=== PATIENT | male | born 1935 | race Caucasian/White ===

== ENCOUNTER 2019-06-08 16:21 | Inpatient (IN) ==
--- OUTSIDE RECORDS SUMMARY | 2019-06-08 16:26 | External Medical Summary | Continuity of Care Document ---
:1935 Author Name Stormy Church, Provider Address Unavailable Unavailable , Care Team Providers Name Role Phone NonMNPG Ranjit, Provider Unavailable [email or web address] Active medical history not documented Allergies and Adverse Reactions Allergy history not documented Medications Medications not documented Procedures Procedures not documented Immunizations Immunizations not documented Plan of Treatment Planned Observations Planned Goals not documented Results No Known Results Results not documented
--- NOTE | 2019-06-08 17:00 | Emergency Department Note ---
Entered by Sharee Gil acting as a scribe for Michi Luna MD History of Present Illness General Chief complaint: Abdominal Pain Stated complaint: AB PAIN, RESP. DIFF Time Seen by Provider: 06/08/19 16:33 Source: patient History of Present Illness Onset (ago): day(s) 3 Location: abdomen Pain Consistency: + constant Maximum Pain Intensity: 8 Associated symptoms: + denies other symptoms (melena, hematochezia, dysuria. diarrhea ), + shortness of breath (began 3 days ago ) and + other (pain and edema in bilateral lower extremities, frequent urination, chronic back pain unchanged from baseline, chest pressure for years but no change from baseline ); no cough, no fever/chills, no headaches and no nausea/vomiting The patient is an 83 year old male with a PMHx pertinent for CABG x4, CAD, cardiac stent, chronic chest pressure, HTN, DM, GERD, dyslipidemia, chronic back pain, chronic bilateral leg numbness, back surgery, and other relevant past medical problems as indicated on [facility] who presents to the Emergency Room with complaints of abdominal pain. The patient states that he began experiencing abdominal pain associated with shortness of breath 3 days ago after lifting a bucket of coal. He states that his pain is worse with movement and takes aspirin at home for relief but did not take Tylenol. He also reports more frequent urination that usual and states that he is unsure if his abdomen is distended of not. Additionally he complains of some pain and edema in his legs. Of note, he reports that his chest pressure, chronic back pain, and chronic bilateral leg numbness are unchanged from baseline. Currently the patient admits that his breathing has improved since arrival to the ED today. The patient also reports that he is on Plavix and wears oxygen at night, He denies melena, hematochezia, diarrhea, cough, fever, vomiting, dysuria, headaches, recent falls or injuries, and any known allergies. The patient offers no additional complaints at this time. Home Medications Home Medications Medication Instructions Recorded Confirmed Type acetaminophen [Acetaminophen Extra 1,000 mg PO BID 06/08/19 06/08/19 History Strength] amlodipine 5 mg PO QAM 06/08/19 06/08/19 History aspirin 81 mg PO QAM 06/08/19 06/08/19 History carvedilol 12.5 mg PO BID 06/08/19 06/08/19 History clopidogrel 75 mg PO QAM 06/08/19 06/08/19 History cyanocobalamin (vitamin B-12) 1,000 mcg PO QAM 06/08/19 06/08/19 History [Vitamin B-12] duloxetine 60 mg PO QAM 06/08/19 06/08/19 History xajftjkyvre-ryumuxnta-bmkngieb 1 inh INHALATION DAILY 06/08/19 06/08/19 History [Trelegy Ellipta] furosemide 20 mg PO 3XWK 06/08/19 06/08/19 History gabapentin 300 mg PO BID 06/08/19 06/08/19 History levothyroxine 25 mcg PO QAM 06/08/19 06/08/19 History losartan 25 mg PO QPM 06/08/19 06/08/19 History metformin 500 mg PO BID 06/08/19 06/08/19 History multivitamin 1 tab PO QAM 06/08/19 06/08/19 History nitroglycerin [Nitrostat] 0.4 mg SUBLINGUAL UD 06/08/19 06/08/19 History pantoprazole 40 mg PO QAM 06/08/19 06/08/19 History potassium chloride 10 meq PO 3XWK 06/08/19 06/08/19 History rosuvastatin 10 mg PO QPM 06/08/19 06/08/19 History Allergies Allergy/AdvReac Type Severity Reaction Status Date / Time acetaminophen AdvReac Mild anxiety,ins Verified 06/08/19 17:43 omnia codeine AdvReac Mild GI SYMPTOMS Verified 06/08/19 17:43 hydrocodone AdvReac Mild anxiety,ins Verified 06/08/19 17:43 omnia Past Med/Surg History Medical History Acute cholecystitis (Acute) CAD (coronary artery disease) (Chronic) "CABG x 4 2001 cath 2011 - SVG to 1st diagonal 100% occluded, other grafts patent stress test 2014 - normal per patient" GERD (gastroesophageal reflux disease) (Chronic) BPH (benign prostatic hyperplasia) (Chronic) Dyslipidemia (Chronic) ERINN (obstructive sleep apnea) (Chronic) HTN (hypertension) (Chronic) Aortic stenosis, moderate (Chronic) Hypothyroidism (Chronic) Diabetes mellitus (Chronic) H/O echocardiogram (Chronic) "04/2015 - EF 55%, moderate " Amputated finger (Chronic) Surgical History H/O repair of right rotator cuff (Chronic) S/P TURP (Chronic) S/P laminectomy with spinal fusion (Chronic) "2011" History of CEA (carotid endarterectomy) (Chronic) "left - 2011, right - 2012" Hx of cataract surgery (Chronic) Family History Brother Diabetes Coronary heart disease, Onset Age: 60 Brother Coronary heart disease, Onset Age: 50 Social History Preferred Language: Bruneian Communication Ability: Effective Beliefs That Will Affect Care: None marital status: Current Living Situation: Spouse current occupational status: retired Other Information That Helps Us Care for You: No Feels Safe at Home: Yes Safety Concerns: Feels Safe At This Time Smoking Status: Never smoker Tobacco Type: cigarettes and smokeless tobacco ; packs per day: 4 ; Years Smoked: 25 ; Do You Dip or Chew Tobacco: No ; Second Hand Exposure: No ; Tobacco Cessation Education Requested by Patient: No Hx Alcohol Use: No Hx Substance Use: No Review of Systems See HPI for pertinent positives & negatives. and A total of 10 systems reviewed and were otherwise negative Physical Exam Vital Signs Vital Signs - 24 hr 06/08/19 16:24 06/08/19 16:27 06/08/19 16:28 Temperature 36.9 C Temperature Source Oral Sepsis Recent Fever Within 48 Hours No Sepsis New/Unexplained Change in Mental Status No Sepsis Action Taken by Nursing No Action Required Pulse Rate 79 75 78 Pulse Rate from SpO2 Sensor 79 76 Pulse Rhythm Regular Pulse Strength Normal Respiratory Rate 20 17 20 Respiratory Effort / Characteristics Non-Labored Spontaneous Respiratory Depth Normal Blood Pressure 177/74 H 167/83 H Blood Pressure Mean 108 111 Blood Pressure Position Lying Pulse Oximetry 91 90 88 L Oxygen Delivery Method Room Air Oxygen Flow Rate 3 3 06/08/19 16:30 06/08/19 17:00 06/08/19 17:03 Temperature Temperature Source Sepsis Recent Fever Within 48 Hours Sepsis New/Unexplained Change in Mental Status Sepsis Action Taken by Nursing Pulse Rate 77 78 88 Pulse Rate from SpO2 Sensor 78 78 Pulse Rhythm Pulse Strength Respiratory Rate 26 H 27 H 20 Respiratory Effort / Characteristics Respiratory Depth Blood Pressure 167/83 H Blood Pressure Mean 111 Blood Pressure Position Pulse Oximetry 97 96 95 Oxygen Delivery Method Nasal Cannula Oxygen Flow Rate 3 3 3 06/08/19 17:12 06/08/19 17:32 06/08/19 18:00 Temperature Temperature Source Sepsis Recent Fever Within 48 Hours Sepsis New/Unexplained Change in Mental Status Sepsis Action Taken by Nursing Pulse Rate 81 83 80 Pulse Rate from SpO2 Sensor 80 81 Pulse Rhythm Pulse Strength Respiratory Rate 29 H 28 H 26 H Respiratory Effort / Characteristics Respiratory Depth Blood Pressure 169/85 H Blood Pressure Mean 113 Blood Pressure Position Pulse Oximetry 96 92 Oxygen Delivery Method Nasal Cannula Nasal Cannula Oxygen Flow Rate 3 3 06/08/19 18:30 06/08/19 18:48 06/08/19 19:30 Temperature Temperature Source Sepsis Recent Fever Within 48 Hours Sepsis New/Unexplained Change in Mental Status Sepsis Action Taken by Nursing Pulse Rate 84 85 86 Pulse Rate from SpO2 Sensor 85 85 85 Pulse Rhythm Pulse Strength Respiratory Rate 21 22 28 H Respiratory Effort / Characteristics Respiratory Depth Blood Pressure 162/79 H 164/73 H Blood Pressure Mean 106 103 Blood Pressure Position Pulse Oximetry 94 96 94 Oxygen Delivery Method Nasal Cannula Nasal Cannula Oxygen Flow Rate 3 3 General: Non-ill appearing older male on 2L nasal canula and appears to be in no acute distress. HEENT: Normal cephalic atraumatic. Pupils are equal round and reactive to light. Extraocular movements are intact. Oropharynx is pink with moist mucous membranes. No swelling of the mouth lips or tongue. Neck: Supple with a midline trachea. No meningeal signs or stiffness, no JVD or bruits. No Stridor. Chest: Clear to auscultation bilaterally. No wheezes or rhonchi. No increased work of breathing. Heart: regular rate and rhythm. Abdomen: Soft nontender, mildly distended without rebound guarding or rigidity. Extremities: No cyanosis clubbing or edema. No calf tenderness or asymmetry Spine/Back. Non tender to palpation. No CVA tenderness Skin: Good turgor without rashes. Neurologic exam: Cranial nerves two through 12 are intact. Motor and sensation are intact and symmetrical throughout. Course 1635: Past medical records reviewed. The patient was evaluated in room A03. A complete history and physical exam was performed. 174: I checked on the patient and she is resting comfortably waiting to go to CT. 183: Spoke with Dr. Ty, [facility] Surgeon who states that he will see the patient but recommends to admit the patient to medicine. 1852: Spoke to [facility] who states that he will be admitted to [facility]. 1855: Dr. Ty evaluated the patient and will admit to medicine with IV abx. The patient verbally expressed understanding and agreement of the treatment plan. The patient will be evaluated for further treatment. Administered Medications Carvedilol (Coreg) 12.5 mg PO BID UNA Stop: 07/08/19 20:59 Last Admin: 06/08/19 21:12 Dose: 12.5 mg Documented by: [id number] Gabapentin (Neurontin) 300 mg PO BID UNA Stop: 07/08/19 20:59 Last Admin: 06/08/19 21:12 Dose: 300 mg Documented by: [id number] Sodium Chloride (Nss 1000ml) 1,000 mls @ 60 mls/hr IV .[id number] UNA Stop: 07/08/19 21:59 Last Admin: 06/08/19 22:08 Dose: 60 mls/hr Documented by: [id number] Losartan Potassium (Cozaar) 25 mg PO QPM UNA Stop: 07/08/19 20:59 Last Admin: 06/08/19 21:13 Dose: 25 mg Documented by: [id number] Rosuvastatin Calcium (Crestor) 10 mg PO QPM UNA Stop: 07/08/19 20:59 Last Admin: 06/08/19 21:12 Dose: 10 mg Documented by: [id number] Discontinued Medications Piperacillin Sod/Tazobactam Sod (Zosyn) 4.5 gm in 120 mls @ 240 mls/hr IV NOW ONE Stop: 06/08/19 19:23 Last Infusion: 06/08/19 20:06 Dose: 0 mls/hr Documented by: [id number] Admin: 06/08/19 19:18 Dose: 240 mls/hr Documented by: [id number] Acetaminophen (Ofirmev) 1,000 mg in 100 mls @ 400 mls/hr IV 2100 ONE Stop: 06/08/19 21:14 Last Infusion: 06/08/19 21:29 Dose: 0 mls/hr Documented by: [id number] Admin: 06/08/19 21:14 Dose: 400 mls/hr Documented by: [id number] Dextrose/Sodium Chloride (D5w And Nss) 1,000 mls @ 60 mls/hr IV .[id number] UNA Stop: 07/08/19 20:23 Last Infusion: 06/08/19 21:56 Dose: 0 mls/hr Documented by: [id number] Infusion: 06/08/19 21:55 Dose: 0 mls/hr Documented by: [id number] Admin: 06/08/19 20:48 Dose: 60 mls/hr Documented by: [id number] Insulin Glargine (Lantus Solostar Pen) 0 - 8 units SC BID UNA; Protocol Stop: 07/08/19 20:59 Last Admin: 06/08/19 21:39 Dose: 8 units Documented by: [id number] Cosigned by: [id number] Medical Decision Making Differential Diagnosis Differential diagnosis includes but is not limited to musculoskeletal hematoma, infection, bowel obstruction, electrolyte or metabolic abnormality, cardiac disease, pulmonary disease. Medical Records Attestation: I reviewed the patient's medical records. Home Medications Current Medication List: was personally reviewed by me Laboratory Data Attestation: I reviewed the patient's lab results. Result diagrams: 06/08/19 17:13 06/08/19 17:13 Lab Results 06/08/19 06/08/19 06/08/19 Range/Units 17:13 17:13 17:14 WBC 14.08 H (4.8-10.8) K/uL RBC 4.91 (4.7-6.1) M/uL Hgb 15.4 (14.0-18.0) g/dL Hct 44.1 (42-52) % MCV 89.8 (80-100) fL MCH 31.4 (25-34) pg MCHC 34.9 (32-36) g/dL RDW Std Deviation 46.6 H (36.4-46.3) fL RDW Coeff of Maryan 14.2 (11.5-14.5) % Plt Count 191 (130-400) K/uL MPV 9.3 (7.4-10.4) fL Immature Gran % (Auto) 0.4 % Neut % (Auto) 82.3 % Lymph % (Auto) 6.2 % Johnston % (Auto) 11.0 % Eos % (Auto) 0.0 % Baso % (Auto) 0.1 % Immature Gran # (Auto) 0.05 H (0.00-0.02) K/uL Neut # (Auto) 11.60 H (1.4-6.5) K/uL Lymph # (Auto) 0.87 L (1.2-3.4) K/uL Johnston # (Auto) 1.55 H (0.11-0.59) K/uL Eos # (Auto) 0.00 (0-0.5) K/uL Baso # (Auto) 0.01 (0-0.2) K/uL Sodium 131 L (136-145) mmol/L Potassium 4.3 (3.5-5.1) mmol/L Chloride 94 L (98-107) mmol/L Carbon Dioxide 29 (21-32) mmol/L Anion Gap 8.0 (3-11) BUN 10 (7-18) mg/dl Creatinine 0.78 (0.6-1.4) mg/dl Est Cr Clr Drug Dosing 74.0 ml/min Est GFR ( Amer) 97.4 Est GFR (Non-Af Amer) 84.1 BUN/Creatinine Ratio 12.7 (10-20) Glucose 160 H (70-99) mg/dl Calcium 9.4 (8.5-10.1) mg/dl Total Bilirubin 1.1 H (0.2-1) mg/dl AST 10 L (15-37) U/L ALT 18 (12-78) U/L Alkaline Phosphatase 52 (45-117) U/L Troponin I < 0.015 (0-0.045) ng/ml Total Protein 8.0 (6.4-8.2) gm/dl Albumin 4.0 (3.4-5.0) gm/dl Globulin 4.0 (2.5-4.0) gm/dl Albumin/Globulin Ratio 1.0 (0.9-2) Lipase 46 L (73-393) U/L Urine Color Dark Yellow Urine Appearance Clear (Clear) Urine pH 7.5 (4.5-7.5) Ur Specific Brandon 1.025 (1.000-1.030) Urine Protein 3+ H (Negative) Urine Glucose (UA) 1+ H (Negative) Urine Ketones 2+ H (Negative) Urine Blood Negative (Negative) Urine Nitrite Negative (Negative) Urine Bilirubin Negative (Negative) Urine Urobilinogen Negative (Negative) Ur Leukocyte Esterase Negative (Negative) Urine WBC (Auto) 1-5 (0-5) /hpf Urine RBC (Auto) 0-4 (0-4) /hpf U Hyaline Cast (Auto) 1-5 (0-5) /lpf U Epithel Cells (Auto) 10-20 H (0-5) /lpf Urine Bacteria (Auto) Negative (Negative) Imaging Data Radiologist's Impression: Radiology results as stated below per my review and the radiologist's interpretation: CT abd pelvis wo con CLINICAL HISTORY: 83 years-old Male presenting with lower abdominal pain, generalized abdominal pain. TECHNIQUE: Multidetector CT of the abdomen and pelvis was performed without the use of intravenous contrast. IV contrast: None. One or more dose lowering techniques were used consistent with the principles of ALARA (as low as reasonably achievable), including automatic exposure control, mA or kV adjustment to individual patient size, and/or use of iterative reconstruction. COMPARISON: None. CT DOSE (mGy.cm): The estimated cumulative dose is 1122.10 mGycm. 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 Lung bases: Mild multichamber enlargement of the heart. Coronary artery bypass grafting may be present. Coronary artery, aortic valve, and mitral annular calcification. No pericardial or pleural effusion. Multiple calcified bilateral hilar and mediastinal lymph nodes indicate a history of old granulomatous disease. Bibasilar atelectasis greater on the right. This may in part be due to elevation of the right hemidiaphragm. Liver: Normal morphology. Density consistent with hepatic steatosis. Biliary: No gross biliary ductal dilatation allowing for noncontrast technique. The gallbladder is mildly distended with significant wall thickening and pericholecystic inflammatory change. A gallstone is noted at the gallbladder neck. Pancreas: Mild parenchymal atrophy. Spleen: Normal noncontrast appearance. Adrenal glands: Normal noncontrast appearance. Kidneys and ureters: Exophytic cyst may be present in the left kidney. No nephrolithiasis. No hydronephrosis. Normal ureters. Bladder: Circumferential bladder wall thickening. Pelvic organs: Normal noncontrast appearance. Bowel: Diverticulosis of the proximal sigmoid and descending colon without wall thickening or pericolonic inflammatory change. Mild wall thickening of the hepatic flexure of the colon adjacent to the inflamed gallbladder. The appendix is normal. No bowel obstruction. Periduodenal fluid along the descending portion with mild wall thickening likely secondarily reactive. A small duodenal di verticulum is noted at the level of the pancreatic head. Peritoneal cavity: Trace retroperitoneal fluid along the descending duodenum emanating from the gallbladder as mentioned. No free intraperitoneal gas or fluid. Lymph nodes: No gross lymphadenopathy allowing for noncontrast technique. Vasculature: Extensive calcified atherosclerotic plaque throughout the normal caliber abdominal aorta and the major branch vessels. There is resulting severe stenosis of the bilateral proximal common iliac arteries. Additional sites of stenoses of origins of vessels also suspected. Abdominal wall: Fat-containing small inguinal hernias, right greater than left. Bilateral mild gynecomastia. Musculoskeletal: Posterior lumbar fusion hardware and laminectomy defects in the lower lumbar spine. Degenerative changes of the spine. Median sternotomy appears well healed. IMPRESSION: 1. Evidence of acute calculus cholecystitis. Surgical consultation is necessary. 2. Secondarily reactive change of the hepatic flexure of the colon and descending duodenum. 3. Diverticulosis coli. No evidence of diverticulitis. 4. Chronic bladder outlet obstruction secondary to benign prostatic hyperplasia suspected. 5. Mild cardiomegaly. 6. Extensive atherosclerosis with suspected severe stenosis in the proximal common iliac arteries bilaterally. The report will be called/faxed according to standard departmental protocol. Electronically signed by: Irvin To M.D. 06/08/2019 6:10 PM XR chest 1V portable CLINICAL HISTORY: Shortness of breath COMPARISON STUDY: October 2011 FINDINGS: There are postsurgical changes of a midline sternotomy. There is mild elevation right hemidiaphragm. This is a new finding. There is no failure. There is no lobar consolidation. There are no pleural effusions.[ IMPRESSION: 1. Interval development of elevation of the right hemidiaphragm 2. No evidence of focal pulmonary consolidation. No evidence of failure Electronically signed by: Benja Cesar M.D. 06/08/2019 5:06 PM ECG Data Attestation: I personally reviewed and interpreted this ECG as follows: Indication: + abdominal pain Rate (beats per minute): 78 Rhythm: + normal sinus ECG Findings: + Other (anterior and lateral T wave abnormalities ) Comparison ECG Date: from (EKG 1 done in doctor's office today [facility] EMT in the ED) Change: the following changes noted (NSR rate of 76, occasional PVC's, poor baseline, lateral T wave abnormalities, no acute ST wave elevations) Blood Pressure Blood Pressure Findings: Elevated blood pressure Blood Pressure Disposition: Referred to patients primary care provider SUE Narrative This patient comes in as described above. He was placed in room A3. He has had lower abdominal pain for couple days after lifting something heavy. There was no direct trauma. He was short of breath as well he does wear home oxygen 3 L at night apparently in the office he was hypoxemic. At present, he is on 2-1/2 to liters nasal cannula and he is 95% or so. He appears in no distress. His abdomen is mildly tender in the epigastric area.. He is to have a very complex medical history and thus an extensive work-up was done which included CAT scan of the abdomen EKG chest x-ray and multiple blood testing. He was reassessed frequently. CAT scan does reveal findings consistent with acute cholecystitis. He has a gallbladder that is inflamed with a stone in the neck. His white count is elevated 14. His LFTs are not elevated. EKG does not suggest any definite acute ischemic changes. he does have some nonspecific T wave abnormalit ies. Troponin is not elevated. Chest x-ray was unremarkable. I did consult Dr. Aguilar who saw the patient ER. Given his multiple medical problems he does recommend to start him on IV antibiotics and having this and admit him. I did consult medicine and they saw him in the ER for these measures. 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 DIFF ED Provider: Michi Luna Discharge Problem: Acute cholecystitis, Central abdominal pain, Shortness of breath, Diabetes mellitus, shelter current use of clopidogrel Patient Disposition: Admitted As Inpatient Discharge Instructions Interventions: ED Discharge Assessment Last Done: 06/08/19 20:12 The scribe's documentation has been prepared under my direction and personally reviewed by me in its entirety. I confirm that the note above accurately reflects all work, treatment, procedures, and medical decision making performed by me.
--- NOTE | 2019-06-08 17:07 | XRay Report ---
XR chest 1V portable CLINICAL HISTORY: Shortness of breath COMPARISON STUDY: October 2011 FINDINGS: There are postsurgical changes of a midline sternotomy. There is mild elevation right hemid iaphragm. This is a new finding. There is no failure. There is no lobar consolidation. There are no p leural effusions.[ IMPRESSION: 1. Interval development of elevation of the right hemidiaphragm 2. No evidence of focal pulmonary consolidation. No evidence of failure Electronically signed by: Benja Cesar M.D. 06/08/2019 5:06 PM
[2019-06-08 17:21] LABS: Basophils # (auto) 0.01 K/uL (0-0.2); Basophils % (auto) 0.1 %; Hematocrit (blood only) 44.1 % (42-52); Hemoglobin 15.4 g/dL (14.0-18.0); Immature Granulocytes # (auto) 0.05 K/uL (0.00-0.02); Immature Granulocytes % (auto) 0.4 %; Lymphocytes # (auto) 0.87 K/uL (1.2-3.4); Lymphocytes % (auto) 6.2 %; Mean Corpuscular Hemoglobin 31.4 pg (25-34); Mean Corpuscular Hgb Conc 34.9 g/dL (32-36); Mean Corpuscular Volume 89.8 fL (80-100); Mean Platelet Volume 9.3 fL (7.4-10.4); Monocytes # (auto) 1.55 K/uL (0.11-0.59); Neutrophils % (auto) 82.3 %; Platelet Count 191 K/uL (130-400); RDW Coefficient of Variation 14.2 % (11.5-14.5); RDW Standard Deviation 46.6 fL (36.4-46.3); Red Blood Count 4.91 M/uL (4.7-6.1); White Blood Count 14.08 K/uL (4.8-10.8)
[2019-06-08 17:40] LABS: Alanine Aminotransferase 18 U/L (12-78); Aspartate Aminotransferase 10 U/L (15-37); BUN Creatinine Ratio 12.7 (10-20); Blood Urea Nitrogen 10 mg/dl (7-18); Calcium 9.4 mg/dl (8.5-10.1); Carbon Dioxide 29 mmol/L (21-32); Chloride 94 mmol/L (98-107); Est GFR (African American) 97.4; Est GFR (Non-African American) 84.1; Glucose 160 mg/dl (70-99); Lipase 46 U/L (73-393); Potassium 4.3 mmol/L (3.5-5.1); Sodium 131 mmol/L (136-145)
[2019-06-08 17:47] LABS: Alkaline Phosphatase 52 U/L (45-117); Bilirubin,Total 1.1 mg/dl (0.2-1); Troponin I < 0.015 ng/ml (0-0.045)
[2019-06-08 17:57] LABS: Appearance Urine Clear (Clear); Bacteria Urine Automated Negative (Negative); Bilirubin Urine Negative (Negative); Blood Urine Negative (Negative); Color Urine Dark Yellow; Glucose Urine UA 1+ (Negative); Ketones Urine 2+ (Negative); Leukocyte Esterase Urine Negative (Negative); Nitrite Urine Negative (Negative); RBC Urine Automated 0-4 /hpf (0-4); Specific Gravity Urine 1.025 (1.000-1.030); Urobilinogen Urine Negative (Negative); pH Urine 7.5 (4.5-7.5)
--- NOTE | 2019-06-08 18:11 | CT Scan Report ---
CT abd pelvis wo con CLINICAL HISTORY: 83 years-old Male presenting with lower abdominal pain, generalized abdominal pain. TECHNIQUE: Multidetector CT of the abdomen and pelvis was performed without the use of intravenous co ntrast. IV contrast: None. One or more dose lowering techniques were used consistent with the princip les of ALARA (as low as reasonably achievable), including automatic exposure control, mA or kV adjust ment to individual patient size, and/or use of iterative reconstruction. COMPARISON: None. CT DOSE (mGy.cm): The estimated cumulative dose is 1122.10 mGycm. FINDINGS: Ceramic Chemist topogram: Orthopedic hardware. Lung bases: Mild multichamber enlargement of the heart. Coronary artery bypass grafting may be presen t. Coronary artery, aortic valve, and mitral annular calcification. No pericardial or pleural effusio n. Multiple calcified bilateral hilar and mediastinal lymph nodes indicate a history of old granuloma tous disease. Bibasilar atelectasis greater on the right. This may in part be due to elevation of the right hemidiaphragm. Liver: Normal morphology. Density consistent with hepatic steatosis. Biliary: No gross biliary ductal dilatation allowing for noncontrast technique. The gallbladder is mi ldly distended with significant wall thickening and pericholecystic inflammatory change. A gallstone is noted at the gallbladder neck. Pancreas: Mild parenchymal atrophy. Spleen: Normal noncontrast appearance. Adrenal glands: Normal noncontrast appearance. Kidneys and ureters: Exophytic cyst may be present in the left kidney. No nephrolithiasis. No hydrone phrosis. Normal ureters. Bladder: Circumferential bladder wall thickening. Pelvic organs: Normal noncontrast appearance. Bowel: Diverticulosis of the proximal sigmoid and descending colon without wall thickening or pericol onic inflammatory change. Mild wall thickening of the hepatic flexure of the colon adjacent to the in flamed gallbladder. The appendix is normal. No bowel obstruction. Periduodenal fluid along the descen ding portion with mild wall thickening likely secondarily reactive. A small duodenal diverticulum is noted at the level of the pancreatic head. Peritoneal cavity: Trace retroperitoneal fluid along the descending duodenum emanating from the gallb ladder as mentioned. No free intraperitoneal gas or fluid. Lymph nodes: No gross lymphadenopathy allowing for noncontrast technique. Vasculature: Extensive calcified atherosclerotic plaque throughout the normal caliber abdominal aorta and the major branch vessels. There is resulting severe stenosis of the bilateral proximal common il iac arteries. Additional sites of stenoses of origins of vessels also suspected. Abdominal wall: Fat-containing small inguinal hernias, right greater than left. Bilateral mild gyneco mastia. Musculoskeletal: Posterior lumbar fusion hardware and laminectomy defects in the lower lumbar spine. Degenerative changes of the spine. Median sternotomy appears well healed. IMPRESSION: 1. Evidence of acute calculus cholecystitis. Surgical consultation is necessary. 2. Secondarily reactive change of the hepatic flexure of the colon and descending duodenum. 3. Diverticulosis coli. No evidence of diverticulitis. 4. Chronic bladder outlet obstruction secondary to benign prostatic hyperplasia suspected. 5. Mild cardiomegaly. 6. Extensive atherosclerosis with suspected severe stenosis in the proximal common iliac arteries bi laterally. The report will be called/faxed according to standard departmental protocol. Electronically signed by: Irvin To M.D. 06/08/2019 6:10 PM
[2019-06-08 18:12] LABS: Protein Urine 3+ (Negative); Sulfosalicylic Acid Urine Positive (Negative)
[2019-06-08] MEDS ORDERED: PIPERACILL/TAZOBAC CONSULT ACTIVE PRN ×2 (18:54→20:24)
[2019-06-08] MEDS ORDERED: PIPERACILLIN/TAZOBACTAM 4.5 GM/120 ML BAG IV ONE (18:54)
--- NOTE | 2019-06-08 19:25 | Surgery Consultation ---
Date of Consultation June 08, 2019 Assessment & Plan (1) Acute cholecystitis: Patient has acute cholecystitis no evidence of common bile duct obstruction or elevated liver function test He is on aspirin and Plavix Recommend the patient be admitted to medical service IV antibiotics and watch his clinical course ideally would like to wait 3 or 4 days minimum from Plavix before we will proceed with surgery but even so like to get the medical clearance and possible cardiology to see the patient prior to surgery and see if he is a candidate or he may be best served for a cholecystostomy tube This was discussed in detail with the and the patient and they are agreeable with our plans and they are aware that we may change course of therapy depending on his clinical picture Present on Admission?: Yes History of Present Illness Reason for Consultation: Acute cholecystitis Requesting Physician: ER physician History of Present Illness 83-year-old gentleman according to his started complaining of abdominal pain about 3 days ago and progressively got worse the point he just laying around at this time was brought into the emergency room for evaluation On questioning the patient in about 6:00 in the evening partial 3 days ago he was trying to lift some call in his basement and developed abdominal pain the progressively became worse he denies any nausea the pain was mostly in the epigastric area on the right side Brought into the emergency room CT scan obtained which showed acute cholecystitis fluid around the gallbladder possibly extending around the hepatic flexure and duodenum Allergies Allergy/AdvReac Type Severity Reaction Status Date / Time acetaminophen AdvReac Mild anxiety,ins Verified 06/08/19 17:43 omnia codeine AdvReac Mild GI SYMPTOMS Verified 06/08/19 17:43 hydrocodone AdvReac Mild anxiety,ins Verified 06/08/19 17:43 omnia Home Medications Home Medications Medication Instructions Recorded Confirmed Type acetaminophen [Acetaminophen Extra 1,000 mg PO BID 06/08/19 06/08/19 History Strength] amlodipine 5 mg PO QAM 06/08/19 06/08/19 History aspirin 81 mg PO QAM 06/08/19 06/08/19 History carvedilol 12.5 mg PO BID 06/08/19 06/08/19 History clopidogrel 75 mg PO QAM 06/08/19 06/08/19 History cyanocobalamin (vitamin B-12) 1,000 mcg PO QAM 06/08/19 06/08/19 History [Vitamin B-12] duloxetine 60 mg PO QAM 06/08/19 06/08/19 History kwjzrzazhgm-ajuupthtc-rpijvsat 1 inh INHALATION DAILY 06/08/19 06/08/19 History [Trelegy Ellipta] furosemide 20 mg PO 3XWK 06/08/19 06/08/19 History gabapentin 300 mg PO BID 06/08/19 06/08/19 History levothyroxine 25 mcg PO QAM 06/08/19 06/08/19 History losartan 25 mg PO QPM 06/08/19 06/08/19 History metformin 500 mg PO BID 06/08/19 06/08/19 History multivitamin 1 tab PO QAM 06/08/19 06/08/19 History nitroglycerin [Nitrostat] 0.4 mg SUBLINGUAL UD 06/08/19 06/08/19 History pantoprazole 40 mg PO QAM 06/08/19 06/08/19 History potassium chloride 10 meq PO 3XWK 06/08/19 06/08/19 History rosuvastatin 20 mg PO QPM 06/08/19 06/08/19 History Patient History Social History Feels Safe at Home: Yes Smoking Status: Former smoker Review of Systems Constitutional: Patient has had considerable peripheral vascular and cardiac issues He apparently is in need of a aortic valve replacement but according to the they are working to unplug his carotids prior to surgery I personally had performed a left carotid endarterectomy on him in 2011 and si nce that time I have not seen him and has been followed by vascular at [facility] He did have a critical right carotid stenosis at that time and I am not sure if it was ever addressed by the vascular team and [facility] or which carotid is blocked at this time The patient also has had problem with some reflux type of symptoms and bloating when he gets some fatty foods and this is been going on for some time The patient also has sleep apnea and is on BiPAP at night Physical Exam Physical Exam: Patient is laying on his right side oxygen nasal cannula with O2 sats of 91 states that he was in high 80s in the doctor's office prior to coming to the hospital Patient is alert is coherent in no obvious distress Eyes: PERRL, conjunctivae normal, anicteric sclerae ENMT: external ear and nose normal, oropharynx normal Neck: No audible carotid bruits incision left carotid steal well Respiratory: Distant breath sounds bilaterally Cardiovascular: Normal sinus rhythm Gastrointestinal (Abdomen): Obese no tenderness or masses appreciated on exam or on deep palpation Results & Data Vital Signs (Past 12 Hours) Vital Signs Temp Pulse Resp BP Pulse Ox 06/08/19 18:48 85 22 162/79 H 96 06/08/19 18:30 84 21 94 06/08/19 18:00 80 26 H 06/08/19 17:32 83 28 H 92 06/08/19 17:12 81 29 H 169/85 H 96 06/08/19 17:03 88 20 95 06/08/19 17:00 78 27 H 96 06/08/19 16:30 77 26 H 167/83 H 97 06/08/19 16:28 36.9 C 78 20 167/83 H 88 L 06/08/19 16:27 75 17 90 06/08/19 16:24 79 20 177/74 H 91 PG Care Time/CCT Total # of Minutes Spent Total Time Spent with Patient: Total time spent is greater than 50% in coordination of care (as documented) at patient's floor/unit and/or counseling patient:
--- NOTE | 2019-06-08 19:51 | History & Physical Report ---
Date of Service June 08, 2019 Assessment & Plan (1) Acute cholecystitis: Mr. Campo is a 83-year-old male who has significant past medical history of CAD s/p CABG x 4 2000 and PTCA x 1 2006, severe aortic stenosis, bilateral carotid artery stenosis status post L CEA 02/09 and R CEA 08/18 with re-stenosis of L carotid 70-99%, COPD, ERINN on CPAP, HTN, HLD, T2DM, hypothyroidism GERD, BPH who presents to [facility] ED secondary to shortness of breath and abdominal pain x3 days. In ED pt was hypertensive and hypoxic requiring 3L of O2 via NC, he was afebrile WBC 14k, Na 131, K 4.3, bun 10, Cr 0.78, glucose 160, Tbili 1.1, AST 10, ALT 18, ALP 52, trop WNL CXR: elevated R hemidiaphragm but no acute cardiopulmonary abnormality CT scan abd/pelvis: concerning for acute cholecystitis Surgical consultation was performed by Dr. Ty, IV antibiotics initiated admit to tele continue IV Zosyn NPO per Dr. Ty IVF D5NS 60cc/hr - cautious in setting of , pt with T2DM pt with multiple comorbidities including CAD, Severe , L carotid artery stenosis on ASA/Plavix, COPD, ERINN, difficulty with anesthesia per family consult cardiology for assistance with perioperative risk assessment given above echocardiogram in a.m. hold ASA, plavix repeat troponin/ecg (2) Hypoxia: Pt uses O2 at HS with CPAP otherwise does not require O2 hypoxic on arrival requiring 3L O2 via NC CXR no acute cardiopulm abnormality hx of COPD, , CAD, ERINN ? if secondary to pain from cholecystitis, hypoventilation, atelectasis continue Trelegy titrate O2 as needed DuoNeb QID incentive spirometry (3) CAD (coronary artery disease): hx of CABG x 4 2000, with additional angioplasty in 2006 stent to L circumflex on ASA, Statin, Losartan, coreg as outpt recently restarted on plavix due to carotid artery stenosis ECG with anterolateral t wave inversions - last comparsion 2008 no active chest pain and troponin not detectable Echocardiogram in a.m. consult cardiology for perioperative risk assessment (4) Aortic stenosis, moderate: last echocardiogram per family 1.5 month ago at [facility] last echo in [facility] 09/2017 EF 55% with inf hypokinesis, mod-severe repeat echocardiogram for pre op risk assessment monitor volume status closely daily weights strict I and O (5) Diabetes mellitus: A1 6.9 11/2018 obtain a1c in a.m. lantus/novolog per protocol hold metformin (6) HTN (hypertension): blood pressure elevated in ED, likely in setting of pain IV APAP 1g x 1 now will receive coreg 12.5mg and losartan 25mg this evening continue home regimen of amlodipine, losartan, coreg hold lasix for now (7) Carotid artery stenosis: History of left CEA 02/09, history of right CEA 08/13 Repeat carotid ultrasound 2018 revealed left carotid artery 70 to 99% On ASA, statin and recently initiated on Plavix for medical optimization Follows with vascular Dr. Kirby (8) Dyslipidemia: continue crestor (9) Hypothyroidism: continue levothyroxine (10) ERINN (obstructive sleep apnea): CPAP at HS (11) GERD (gastroesophageal reflux disease): continue PPI (12) DVT prophylaxis: SCD/TEDS due to possible upcoming surgical intervention monitor daily need for chemical prophylaxis Disposition: admit to med/surg tele Follow up: PCP Dr. Anthony upon discharge Pt was seen and examined in collaboration with Dr. Anderson, please see addendum Starting 06/09/19 pt will be under the are of Dr. Yates History of Present Illness Chief Complaint: Shortness of breath and abdominal pain x3 days. Primary Care Provider: Jae Anthony MD Mr. Campo is a 83-year-old male who has significant past medical history of CAD s/p CABG x 4 2000 and PTCA x 1 2006, severe aortic stenosis, bilateral carotid artery stenosis status post L CEA 02/09 and R CEA 08/18 with re-stenosis of L carotid 70-99%, COPD, ERINN on CPAP, HTN, HLD, T2DM, hypothyroidism GERD, BPH who presents to [facility] ED secondary to shortness of breath and abdominal pain x3 days. He was initially seen in outpatient clinic and seen by Dolly Prieto PA-C. In clinic he was found to be hypoxic between 80 to 86% with complaints of abdominal pain. He uses 3 L of O2 at at bedtime with his CPAP, but otherwise does not require oxygen. Due to the above he was referred to ED for further evaluation. He notes over the past 3 days he has been having intermittent abdominal pain, comes and goes, worse with movement, touch and meals, improves with rest, never had in the past, did not try anything to make it better. He had decreased appetite today. Intermittent nausea but no vomiting. Denies any fever, chills, sweats, recent illness, dizziness, lightheadedness, syncope, chest pain, palpitations, shortness breath at rest, cough, hemoptysis, emesis, diarrhea, constipation, dysuria, increased urgency with urination, hematuria, melena, hematochezia. He denies any weight loss or gain, lower extremity edema or orthopnea. He denies any recent travel or surgical procedure. He does have history of COPD and takes his Trelegy as prescribed. He has not needed his albuterol inhaler. In ED pt was hypertensive and hypoxic requiring 3L of O2 via NC, he was afebrile WBC 14k, Na 131, K 4.3, bun 10, Cr 0.78, glucose 160, Tbili 1.1, AST 10, ALT 18, ALP 52, trop WNL CXR: elevated R hemidiaphragm but no acute cardiopulmonary abnormality CT scan abd/pelvis: concerning for acute cholecystitis Surgical consultation was performed by Dr. Ty, IV antibiotics initiated Allergies Allergy/AdvReac Type Severity Reaction Status Date / Time acetaminophen AdvReac Mild anxiety,ins Verified 06/08/19 17:43 omnia codeine AdvReac Mild GI SYMPTOMS Verified 06/08/19 17:43 hydrocodone AdvReac Mild anxiety,ins Verified 06/08/19 17:43 omnia Home Medications Home Medications Medication Instructions Recorded Confirmed Type acetaminophen [Acetaminophen Extra 1,000 mg PO BID 06/08/19 06/08/19 History Strength] amlodipine 5 mg PO QAM 06/08/19 06/08/19 History aspirin 81 mg PO QAM 06/08/19 06/08/19 History carvedilol 12.5 mg PO BID 06/08/19 06/08/19 History clopidogrel 75 mg PO QAM 06/08/19 06/08/19 History cyanocobalamin (vitamin B-12) 1,000 mcg PO QAM 06/08/19 06/08/19 History [Vitamin B-12] duloxetine 60 mg PO QAM 06/08/19 06/08/19 History nwlcxlxqezx-rsyeskwtx-itqmblex 1 inh INHALATION DAILY 06/08/19 06/08/19 History [Trelegy Ellipta] furosemide 20 mg PO 3XWK 06/08/19 06/08/19 History gabapentin 300 mg PO BID 06/08/19 06/08/19 History levothyroxine 25 mcg PO QAM 06/08/19 06/08/19 History losartan 25 mg PO QPM 06/08/19 06/08/19 History metformin 500 mg PO BID 06/08/19 06/08/19 History multivitamin 1 tab PO QAM 06/08/19 06/08/19 History nitroglycerin [Nitrostat] 0.4 mg SUBLINGUAL UD 06/08/19 06/08/19 History pantoprazole 40 mg PO QAM 06/08/19 06/08/19 History potassium chloride 10 meq PO 3XWK 06/08/19 06/08/19 History rosuvastatin 10 mg PO QPM 06/08/19 06/08/19 History Past Med/Surg History Medical History Acute cholecystitis (Acute) CAD (coronary artery disease) (Chronic) "CABG x 4 2000 cath 2011 - SVG to 1st diagonal 100% occluded, other grafts patent stress test 2014 - normal per patient" GERD (gastroesophageal reflux disease) (Chronic) BPH (benign prostatic hyperplasia) (Chronic) Dyslipidemia (Chronic) ERINN (obstructive sleep apnea) (Chronic) HTN (hypertension) (Chronic) Aortic stenosis, moderate (Chronic) Hypothyroidism (Chronic) Diabetes mellitus (Chronic) H/O echocardiogram (Chronic) "04/2015 - EF 55%, moderate " Amputated finger (Chronic) Surgical History H/O repair of right rotator cuff (Chronic) S/P TURP (Chronic) S/P laminectomy with spinal fusion (Chronic) "2011" History of CEA (carotid endarterectomy) (Chronic) "left - 2011, right - 2012" Hx of cataract surgery (Chronic) Family History Brother Diabetes Coronary heart disease, Onset Age: 60 Brother Coronary heart disease, Onset Age: 50 Social History Preferred Language: [place]i Communication Ability: Effective Beliefs That Will Affect Care: None marital status: Current Living Situation: Spouse current occupational status: retired Other Information That Helps Us Care for You: No Feels Safe at Home: Yes Safety Concerns: Feels Safe At This Time Smoking Status: Never smoker Tobacco Type: cigarettes and smokeless tobacco ; packs per day: 4 ; Years Smoked: 25 ; Do You Dip or Chew Tobacco: No ; Second Hand Exposure: No ; Tobacco Cessation Education Requested by Patient: No Hx Alcohol Use: No Hx Substance Use: No Review of Systems Review of Systems: All systems reviewed & are unremarkable except as noted in HPI & below Physical Exam Physical Exam: Constitutional: WD/WN, elderly male, vitals as above, NAD, sitting up in bed, pleasant, conversing easily Head: Normocephalic, Atraumatic Eyes: PERRL, conjunctivae normal, anicteric sclerae ENMT: external ear and nose normal, oropharynx dry mucous membranes Neck: trachea midline, no thyromegaly normal visual inspection Respiratory: normal respiratory effort, lungs clear to auscultation, no wheeze, rales, rhonchi. on O2 via NC 3L. Normal insp/exp effort, no accessory muscle use Cardiovascular: RRR, 2/6 harsh RIVER noted throughout precordium, no edema Vessels: no JVD, L carotid bruit Chest: normal inspection of chest Abdomen: normal bowel sounds, soft, tender to palpation RUQ, no hepatosplenomegaly, no rebound/guarding or rigidity Musculoskeletal: no cyanosis or clubbing, extremities motor strength 5/5 Skin: no rashes, warm and dry normal turgor Neurologic: PERRL, EOMI, accommodation nl, no face palsy, no dysarthria CN's II-XI intact bilaterally and moves all extremities Psychiatric: A+Ox3, euthymic affect Lymphatic: no cervical or axillary lymphadenopathy : deferred Results & Data Vital Signs (Past 12 Hours) Vital Signs Temp Pulse Resp BP Pulse Ox 06/08/19 19:30 86 28 H 164/73 H 94 06/08/19 18:48 85 22 162/79 H 96 06/08/19 18:30 84 21 94 06/08/19 18:00 80 26 H 06/08/19 17:32 83 28 H 92 06/08/19 17:12 81 29 H 169/85 H 96 06/08/19 17:03 88 20 95 06/08/19 17:00 78 27 H 96 06/08/19 16:30 77 26 H 167/83 H 97 06/08/19 16:28 36.9 C 78 20 167/83 H 88 L 06/08/19 16:27 75 17 90 06/08/19 16:24 79 20 177/74 H 91 Laboratory Results Short CBC 06/08/19 Range/Units 17:13 WBC 14.08 H (4.8-10.8) K/uL Hgb 15.4 (14.0-18.0) g/dL Hct 44.1 (42-52) % Plt Count 191 (130-400) K/uL BMP 06/08/19 17:13 Sodium 131 L Potassium 4.3 Chloride 94 L Carbon Dioxide 29 BUN 10 Creatinine 0.78 Glucose 160 H Calcium 9.4 Cardiac Enzymes 06/08/19 Range/Units 17:13 Troponin I < 0.015 (0-0.045) ng/ml Liver Function 06/08/19 Range/Units 17:13 Total Bilirubin 1.1 H (0.2-1) mg/dl AST 10 L (15-37) U/L ALT 18 (12-78) U/L Alkaline Phosphatase 52 (45-117) U/L Albumin 4.0 (3.4-5.0) gm/dl Urine 06/08/19 Range/Units 17:14 Urine Color Dark Yellow Urine Appearance Clear (Clear) Urine pH 7.5 (4.5-7.5) Ur Specific Perry 1.025 (1.000-1.030) Urine Protein 3+ H (Negative) Urine Glucose (UA) 1+ H (Negative) Diagnostic Findings CXR: IMPRESSION: 1. Interval development of elevation of the right hemidiaphragm 2. No evidence of focal pulmonary consolidation. No evidence of failure CT abd/pelvis: IMPRESSION: 1. Evidence of acute calculus cholecystitis. Surgical consultation is necessary. 2. Secondarily reactive change of the hepatic flexure of the colon and descending duodenum. 3. Diverticulosis coli. No evidence of diverticulitis. 4. Chronic bladder outlet obstruction secondary to benign prostatic hyperplasia suspected. 5. Mild cardiomegaly. 6. Extensive atherosclerosis with suspected severe stenosis in the proximal common iliac arteries bilaterally. The report will be called/faxed according to standard departmental protocol. Medications Administered Discontinued Medications Piperacillin Sod/Tazobactam Sod (Zosyn) 4.5 gm in 120 mls @ 240 mls/hr IV NOW ONE Stop: 06/08/19 19:23 Last Admin: 06/08/19 19:18 Dose: 240 mls/hr Documented by: [id number] ECG Rate (beats per minute): 78 Findings: + T-wave inversion (anterolateral) Code Status & VTE Plan Code Status DNR VTE Prophylaxis Plan VTE Prophylaxis will be ordered: Yes Reason for no VTE drug order: Contraindicated Supervising Physician Co-Signing Physician Notes Attending Addendum: care coordinated with DANUTA Frazier please refer to her notes for full details, I agree with her notes patient seen and examined, records reviewed by myself as well on exam, patient seen resting in bed, mild RUQ discomfort no nausea, fever/chills no shortness of breath no other symptoms VS noted and reviewed oriented x3, not in distress, speaks in sentences with no effort nor accessory muscle use normal rate, regular rhythm, no murmurs clear breath sounds bilaterally non distended, soft, moderate RUQ tenderness no bipedal edema, erythema, warmth no neuro deficits WBC 14.08 Hg 15.4 Crea 0.78 ASSESSMENT AND PLAN ACUTE CHOLECYSTITIS IV Zosyn NPO for now Gen Surg consulted- hold ASA and Plavix for now, Cardiology pre-op eval recommended HYPOXIA CXR no pneumonia, effusion likely from hypoventilation from pain Incentive Spirometry monitor, wean off Oxygen Nebs other diagnoses and plan of care as per [] Piter Anderson MD
[2019-06-08] MEDS ORDERED: ACETAMINOPHEN 325 MG TAB PO PRN (20:24)
[2019-06-08] MEDS ORDERED: DEXTROSE 50% 50 ML SYRINGE IV PRN (20:24)
[2019-06-08] MEDS ORDERED: CARBOHYDRATES FOR HYPOGLYCEMIA PO PRN (20:24)
[2019-06-08] MEDS ORDERED: MAGNESIUM HYDROXIDE SUSP 30 ML UDC PO PRN (20:24)
[2019-06-08] MEDS ORDERED: GLUCOSE 40% GEL 15 GM TUBE PO PRN (20:24)
[2019-06-08] MEDS ORDERED: D5W AND NSS 1,000 ML IV SCH (20:24)
[2019-06-08] MEDS ORDERED: OXYCODONE HCL IR 5 MG TAB (IMMEDIATE RELEASE) PO PRN (20:24)
[2019-06-08] MEDS ORDERED: GLUCOSE 10 TABS/TUBE PO PRN (20:24)
[2019-06-08] MEDS ORDERED: GLUCAGON FOR INJ 1 MG VIAL SQ PRN (20:24)
[2019-06-08] MEDS ORDERED: ONDANSETRON INJ 2 MG/ML 2 ML VIAL IV PRN (20:24)
[2019-06-08] MEDS ORDERED: ALUMINUM/MAGNESIUM SUSP 30 ML UDC PO PRN (20:24)
[2019-06-08] MEDS ORDERED: ACETAMINOPHEN 325 MG TAB PO SCH (21:00)
[2019-06-08] MEDS ORDERED: ACETAMINOPHEN 1,000 MG/100 ML VIAL IV ONE (21:00)
[2019-06-08] MEDS ORDERED: LOSARTAN POTASSIUM 25 MG TAB PO SCH (21:00)
[2019-06-08] MEDS ORDERED: ROSUVASTATIN CALCIUM 10 MG TAB PO SCH (21:00)
[2019-06-08] MEDS ORDERED: INSULIN GLARGINE SOLOSTAR 100 UNITS/ML 3 ML PEN SC SCH (21:00)
[2019-06-08] MEDS: carvediloL 12.5 MG TAB PO SCH (21:12)
[2019-06-08] MEDS: GABAPENTIN 300 MG CAP PO SCH (21:12)
[2019-06-08] MEDS ORDERED: SODIUM CHLORIDE 0.9% 1000ML 1,000 ML IV SCH (22:00)
[2019-06-08] MEDS: PIPERACILLIN/TAZOBACTAM 3.375 GM in DEXTROSE 5% 100 ML IV SCH (23:41)
[2019-06-09] MEDS: INSULIN ASPART 100 UNITS/ML 3 ML PEN SC SCH ×2 (00:19→06:13)
[2019-06-09 06:02] LABS: Basophils # (auto) 0.01 K/uL (0-0.2); Basophils % (auto) 0.1 %; Hematocrit (blood only) 40.8 % (42-52); Immature Granulocytes # (auto) 0.06 K/uL (0.00-0.02); Immature Granulocytes % (auto) 0.4 %; Lymphocytes # (auto) 1.09 K/uL (1.2-3.4); Mean Corpuscular Hgb Conc 34.3 g/dL (32-36); Mean Corpuscular Volume 90.5 fL (80-100); Mean Platelet Volume 9.3 fL (7.4-10.4); Monocytes # (auto) 1.26 K/uL (0.11-0.59); Monocytes % (auto) 8.1 %; Neutrophils # (auto) 13.09 K/uL (1.4-6.5); Neutrophils % (auto) 84.4 %; Platelet Count 166 K/uL (130-400); RDW Coefficient of Variation 14.3 % (11.5-14.5); RDW Standard Deviation 47.2 fL (36.4-46.3); Red Blood Count 4.51 M/uL (4.7-6.1); White Blood Count 15.51 K/uL (4.8-10.8)
[2019-06-09 06:30] LABS: Albumin Level 3.1 gm/dl (3.4-5.0); BUN Creatinine Ratio 14.2 (10-20); Calcium 9.2 mg/dl (8.5-10.1); Creatinine Clr Calc Pharmacy 61.8 ml/min; Est GFR (African American) 89.5; Est GFR (Non-African American) 77.2; Magnesium 1.9 mg/dl (1.8-2.4); Potassium 4.3 mmol/L (3.5-5.1)
[2019-06-09] MEDS ORDERED: LEVOTHYROXINE SODIUM 25 MCG TABLET PO SCH (06:30)
[2019-06-09 06:32] LABS: Albumin Globulin Ratio 0.7 (0.9-2); Bilirubin,Total 1.1 mg/dl (0.2-1); Globulin 4.2 gm/dl (2.5-4.0); Total Protein 7.3 gm/dl (6.4-8.2)
[2019-06-09 06:40] LABS: Alanine Aminotransferase 16 U/L (12-78); Albumin Level 3.2 gm/dl (3.4-5.0); Alkaline Phosphatase 47 U/L (45-117); Aspartate Aminotransferase 9 U/L (15-37); Bilirubin Direct 0.4 mg/dl (0-0.2); Bilirubin,Total 1.2 mg/dl (0.2-1); Total Protein 7.3 gm/dl (6.4-8.2); Troponin I < 0.015 ng/ml (0-0.045)
[2019-06-09 06:54] LABS: Estimated Average Glucose 151 mg/dl; Hemoglobin A1C 6.9 % (4.5-5.6)
[2019-06-09] MEDS: ALBUT/IPRATROP 3MG/0.5MG NEB 3 ML VIAL NEB SCH ×2 (06:57→10:55)
[2019-06-09] MEDS: PIPERACILLIN/TAZOBACTAM 3.375 GM in DEXTROSE 5% 100 ML IV SCH (08:15)
[2019-06-09] MEDS: carvediloL 12.5 MG TAB PO SCH (08:16)
[2019-06-09] MEDS: GABAPENTIN 300 MG CAP PO SCH (08:17)
[2019-06-09] MEDS ORDERED: AMLODIPINE BESYLATE 5 MG TAB PO SCH (09:00)
[2019-06-09] MEDS ORDERED: metroNIDAZOLE 500 MG/100 ML BAG IV SCH (09:00)
[2019-06-09] MEDS ORDERED: PANTOprazole 40 MG TAB PO SCH (09:00)
[2019-06-09] MEDS ORDERED: DULOXETINE HCL 60 MG CAP PO SCH (09:00)
--- NOTE | 2019-06-09 09:00 | Surgery Progress Note ---
Date of Service June 09, 2019 Assessment & Plan (1) Acute cholecystitis: 06/09/19 9:00 AM Discussed the case with Dr. Yates and with the patient his general condition is deteriorating not responding to antibiotics his white count is more elevated with increasing left shift therefore would recommend that the patient be transferred to a tertiary center for the possibility of a cholecystostomy tube and temporize him The patient has aortic valve issue has carotid stenosis on Plavix that I feel doing any more surgery other than necessary at this time namely cholecystostomy tube would be too high risk Dr. Renner to evaluate the patient and we will try to expedite his care Of note I have mentioned this is a possible scenario that may develop and I have discussed this with his family last evening in the emergency room Patient has acute cholecystitis no evidence of common bile duct obstruction or elevated liver function test He is on aspirin and Plavix Recommend the patient be admitted to medical service IV antibiotics and watch his clinical course ideally would like to wait 3 or 4 days minimum from Plavix before we will proceed with surgery but even so like to get the medical clearance and possible cardiology to see the patient prior to surgery and see if he is a candidate or he may be best served for a cholecystostomy tube This was discussed in detail with the and the patient and they are agreeable with our plans and they are aware that we may change course of therapy depending on his clinical picture Subjective Feels a bit worse Physical Exam Physical Exam: Patient has a moist washcloth on his head he appears more diaphoretic his color a bit paler the vitals were noted The abdomen is distended as it was last night on the palpation some guarding in the right upper quadrant no real Melo sign Results & Data Vital Signs (Past 12 Hours) Vital Signs Temp Pulse Pulse Resp BP Pulse Ox 06/09/19 08:28 36.4 C L 106 H 16 104/65 92 06/09/19 07:37 36.5 C 102 H 20 138/81 91 06/09/19 07:00 100 H 22 85 L 06/09/19 04:04 93 H 06/09/19 04:00 36.9 C 87 20 119/68 93 06/09/19 03:40 87 18 95 06/09/19 03:15 37.6 C H 88 18 143/78 H 95 06/09/19 02:00 87 06/08/19 23:55 37.0 C 86 20 139/78 92 06/08/19 22:15 85 16 93 PG Care Time/CCT Total # of Minutes Spent Total Time Spent with Patient: Total time spent is greater than 50% in coordination of care (as documented) at patient's floor/unit and/or counseling patient:
--- NOTE | 2019-06-09 09:40 | Hospitalist Progress Note ---
Date of Service June 09, 2019 Assessment & Plan (1) Acute cholecystitis: Mr. Campo is a 83-year-old male who has significant past medical history of CAD s/p CABG x 4 2000 and PTCA x 1 2006, severe aortic stenosis, bilateral carotid artery stenosis status post L CEA 02/09 and R CEA 08/18 with re-stenosis of L carotid 70-99%, COPD, ERINN on CPAP, HTN, HLD, T2DM, hypothyroidism GERD, BPH who presents to [facility] ED secondary to shortness of breath and abdominal pain x3 days. Has been on n.p.o., IV fluids pain medications Has been getting intravenous Zosyn since admission Appreciate surgery input and recommendation Clinically little better but overall condition seems to be deteriorated and will need acute surgical intervention as per surgeon and given his complicated medical problem he will be better off any tertiary care center for proposed surgical intervention. Discussed with the and the patient and they were agreeable for the transfer The case was discussed with Dr. Santana , the surgeon from [place] and the patient will be transferred under his care via ALS (2) Hypoxia: Pt uses O2 at HS with CPAP otherwise does not require O2 hypoxic on arrival requiring 3L O2 via NC CXR no acute cardiopulm abnormality hx of COPD, , CAD, ERINN titrate O2 as needed DuoNeb QID incentive spirometry Remains stable (3) CAD (coronary artery disease): hx of CABG x 4 2000, with additional angioplasty in 2006 stent to L circumflex on ASA, Statin, Losartan, coreg as outpt recently restarted on plavix due to carotid artery stenosis ECG with anterolateral t wave inversions - last comparsion 2008 Denies any cardiac symptoms Appreciate cardiology input and recommendation (4) Aortic stenosis, moderate: last echocardiogram per family 1.5 month ago at [facility] [place] last echo in [facility] 09/2017 EF 55% with inf hypokinesis, mod-severe The patient will be transferred to [facility] in [place] for continued care (5) Diabetes mellitus: A1 6.9 11/2018 obtain a1c in a.m. lantus/novolog per protocol hold metformin Check blood sugar has needed (6) HTN (hypertension): blood pressure elevated in ED, likely in setting of pain IV APAP 1g x 1 now will receive coreg 12.5mg and losartan 25mg this evening continue home regimen of amlodipine, losartan, coreg hold lasix for now Blood pressure seems to be maintaining on the lower side of normal (7) Carotid artery stenosis: History of left CEA 02/09, history of right CEA 08/13 Repeat carotid ultrasound 2019 revealed left carotid artery 70 to 99% On ASA, statin and recently initiated on Plavix for medical optimization Follows with vascular Dr. Kirby Aspirin and Plavix are on hold for possible surgical intervention (8) Dyslipidemia: continue crestor (9) Hypothyroidism: continue levothyroxine (10) ERINN (obstructive sleep apnea): CPAP at (11) GERD (gastroesophageal reflux disease): continue PPI (12) DVT prophylaxis: SCD/TEDS due to possible upcoming surgical intervention monitor daily need for chemical prophylaxis Follow up: PCP Dr. Anthony upon discharge His overall condition deteriorated with increasing signs of infection and increasing white count Discussed with the surgeon wanted him to be transferred to tertiary care center for surgical intervention with complicated medical history The case was discussed with the and she was agreeable with the transfer Discussed with Dr. Santana, the surgeon in [facility] and he will be transferred via ALS sometime this morning. Subjective 06/09 The patient was seen and examined in medical telemetry unit He is an 83-year-old male with significant complicated past medical history was admitted with acute cholecystitis last evening Clinically he feels better but on examination and also lab pineda his condition is worse He was seen by surgery this morning and was advised for transfer to tertiary care center He complains some pain in the right upper quadrant but no nausea no vomiting but he has had profuse sweating this morning Discussed with the patient and the and will plan for transfer to [place] as soon as possible Review of Systems Review of Systems: All systems reviewed and are unremarkable except as noted below Constitutional: + fever, + chills and + weakness Gastrointestinal: + abdominal pain and + bloating; no nausea and no vomiting Physical Exam Physical Exam: Lying in bed with minimal discomfort Constitutional: well developed, well nourished, + ill appearing and + obese Eyes: PERRL, conjunctivae normal, anicteric sclerae ENMT: external ear and nose normal, oropharynx normal Neck: trachea midline, no thyromegaly Respiratory: normal respiratory effort; no respiratory distress Auscultation: lungs clear to auscultation bilaterally Cardiovascular: Rate/Rhythm: regular rate and regular rhythm Heart Sounds: + murmur (2/6 over aortic area) Gastrointestinal (Abdomen): Inspection/Auscultation: + abdomen distended Percussion/Palpation: + abdomen tender (Tender right upper quadrant with positive Melo sign and rebound tenderness) and abdomen soft Musculoskeletal: No acute arthritis involving any joints Results & Data Vital Signs (Past 12 Hours) Vital Signs Temp Pulse Pulse Resp BP Pulse Ox 06/09/19 08:28 36.4 C L 106 H 16 104/65 92 06/09/19 07:37 36.5 C 102 H 20 138/81 91 06/09/19 07:00 100 H 22 85 L 06/09/19 04:04 93 H 06/09/19 04:00 36.9 C 87 20 119/68 93 06/09/19 03:40 87 18 95 06/09/19 03:15 37.6 C H 88 18 143/78 H 95 06/09/19 02:00 87 06/08/19 23:55 37.0 C 86 20 139/78 92 06/08/19 22:15 85 16 93 Laboratory Results Short CBC 06/08/19 06/09/19 Range/Units 17:13 05:42 WBC 14.08 H 15.51 H (4.8-10.8) K/uL Hgb 15.4 14.0 (14.0-18.0) g/dL Hct 44.1 40.8 L (42-52) % Plt Count 191 166 (130-400) K/uL BMP 06/08/19 06/09/19 17:13 05:42 Sodium 131 L 131 L Potassium 4.3 4.3 Chloride 94 L 95 L Carbon Dioxide 29 27 BUN 10 13 Creatinine 0.78 0.92 Glucose 160 H 141 H Calcium 9.4 9.2 Cardiac Enzymes 06/08/19 06/08/19 06/09/19 Range/Units 17:13 22:50 05:42 Troponin I < 0.015 < 0.015 < 0.015 (0-0.045) ng/ml Liver Function 06/08/19 06/09/19 06/09/19 Range/Units 17:13 05:42 05:42 Total Bilirubin 1.1 H 1.1 H 1.2 H (0.2-1) mg/dl Direct Bilirubin 0.4 H (0-0.2) mg/dl AST 10 L 11 L 9 L (15-37) U/L ALT 18 16 16 (12-78) U/L Alkaline Phosphatase 52 48 47 (45-117) U/L Albumin 4.0 3.1 L 3.2 L (3.4-5.0) gm/dl Urine 06/08/19 Range/Units 17:14 Urine Color Dark Yellow Urine Appearance Clear (Clear) Urine pH 7.5 (4.5-7.5) Ur Specific [place] 1.025 (1.000-1.030) Urine Protein 3+ H (Negative) Urine Glucose (UA) 1+ H (Negative) Medications Administered Current Inpatient Medications Acetaminophen (Tylenol) 650 mg PO QID [facility] Stop: 07/08/19 20:59 Last Admin: 06/09/19 08:19 Dose: 650 mg Documented by: Acetaminophen (Tylenol) 650 mg PO Q4H PRN PRN Reason: Pain or Fever Stop: 07/08/19 20:23 Al Hydrox/Mg Hydrox/Simethicone (Maalox) 15 ml PO Q4H PRN PRN Reason: Dyspepsia Stop: 07/08/19 20:23 Albuterol (Duoneb) 3 ml NEB QIDR [facility] Stop: 07/09/19 06:59 Last Admin: 06/09/19 06:57 Dose: 3 ml Documented by: Amlodipine Besylate (Norvasc) 5 mg PO QAM [facility] Stop: 07/09/19 08:59 Last Admin: 06/09/19 08:18 Dose: 5 mg Documented by: Carvedilol (Coreg) 12.5 mg PO BID [facility] Stop: 07/08/19 20:59 Last Admin: 06/09/19 08:16 Dose: 12.5 mg Documented by: Dextrose (Dextrose 50%) 25 - 50 ml IV UD PRN; Protocol PRN Reason: Hypoglycemia Protocol Stop: 07/08/19 20:23 Duloxetine HCl (Cymbalta) 60 mg PO QAM [facility] Stop: 07/09/19 08:59 Last Admin: 06/09/19 08:17 Dose: 60 mg Documented by: Gabapentin (Neurontin) 300 mg PO BID [facility] Stop: 07/08/19 20:59 Last Admin: 06/09/19 08:17 Dose: 300 mg Documented by: Glucagon (Glucagen) 1 mg SQ UD PRN; Protocol PRN Reason: Hypoglycemia Protocol Stop: 07/08/19 20:23 Glucose (Glucose 40%) 15 - 30 gm PO UD PRN; Protocol PRN Reason: Hypoglycemia Protocol Stop: 07/08/19 20:23 Glucose (Dex4 Glucose) 4 - 8 tabs PO UD PRN; Protocol PRN Reason: Hypoglycemia Protocol Stop: 07/08/19 20:23 Piperacillin Sod/Tazobactam (Sod 3.375 gm/ Dextrose) 115 mls @ 28.75 mls/hr IV Q8H [facility]; Protocol Stop: 06/18/19 18:59 Last Admin: 06/09/19 08:15 Dose: 28.8 mls/hr Documented by: Sodium Chloride (Nss 1000ml) 1,000 mls @ 60 mls/hr IV .[id number] [facility] Stop: 07/08/19 21:59 Last Admin: 06/08/19 22:08 Dose: 60 mls/hr Documented by: Metronidazole (Flagyl) 500 mg in 100 mls @ 100 mls/hr IV Q8H [facility] Stop: 06/19/19 08:59 Insulin Aspart (Novolog Flexpen) 0 units SC Q6 [facility] Stop: 07/09/19 00:00 Last Admin: 06/09/19 06:13 Dose: 1 units Documented by: Insulin Glargine (Lantus Solostar Pen) 5 units SC HS [facility] Stop: 07/09/19 20:59 Levothyroxine Sodium (Synthroid) 25 mcg PO DAILYBB [facility] Stop: 07/09/19 06:29 Last Admin: 06/09/19 06:08 Dose: 25 mcg Documented by: Losartan Potassium (Cozaar) 25 mg PO QPM [facility] Stop: 07/08/19 20:59 Last Admin: 06/08/19 21:13 Dose: 25 mg Documented by: Magnesium Hydroxide (Milk Of Magnesia) 30 ml PO Q12H PRN PRN Reason: Constipation Stop: 07/08/19 20:23 Miscellaneous (Carbohydrates For Hypoglycemia) 15 - 30 gm PO UD PRN PRN Reason: Hypoglycemia Protocol Stop: 07/08/19 20:23 Miscellaneous (Order Awaiting Action) 1 ea N/A QS [facility] Stop: 07/09/19 00:00 Last Admin: 06/09/19 08:15 Dose: Not Given Documented by: Miscellaneous Information (Consult) 1 ea N/A UD PRN PRN Reason: Consult Stop: 07/08/19 20:23 Ondansetron HCl (Zofran) 4 mg IV Q6H PRN PRN Reason: Nausea Stop: 07/08/19 20:23 Oxycodone HCl (Roxicodone Immediate Rel) 5 mg PO Q8H PRN PRN Reason: Severe Pain Stop: 06/22/19 20:23 Pantoprazole Sodium (Protonix) 40 mg PO QAM [facility] Stop: 07/09/19 08:59 Last Admin: 06/09/19 08:18 Dose: 40 mg Documented by: Potassium Chloride (Klor-Con M10) 10 meq PO MoWeFr@0900 [facility] Stop: 07/11/19 08:59 Rosuvastatin Calcium (Crestor) 10 mg PO QPM [facility] Stop: 07/08/19 20:59 Last Admin: 06/08/19 21:12 Dose: 10 mg Documented by: (1) Diabetes mellitus Diabetes mellitus complication status: without complication 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
--- NOTE | 2019-06-09 10:03 | Cardiology Consultation ---
Date of Consultation June 09, 2019 Assessment & Plan (1) Acute cholecystitis: Patient has multiple cardiac comorbidities and presents with acute cholecystitis not responding to antibiotic therapies. Underlying cardiac issues includes coronary artery disease with chronic class III plus angina pectoris, valvular heart disease with severe aortic stenosis by exam and history Bilateral carotid artery disease and peripheral vascular disease is present Pulmonary status marginal secondary to chronic hypoxia and obstructive sleep apnea Patient high surgical risk. Would recommend and agree with plans for transfer to tertiary care center assess for interventional biliary drainage versus high risk surgery (2) CAD (coronary artery disease): (3) Aortic stenosis: (4) HTN (hypertension): (5) ERINN (obstructive sleep apnea): History of Present Illness Reason for Consultation: Acute cholecystitis Requesting Physician: Dr. Yates Attending Physician: Juliana Yates MD History of Present Illness Patient is a very complex 83-year-old male hospitalized with symptoms of abdominal pain lower substernal chest discomfort and malaise times several days duration evaluation reflecting acute cholecystitis. Has underlying cardiac issues and ongoing issues include 1. Atherosclerotic coronary disease status post carotid bypass grafting 2000 MCNULTY graft LAD, saphenous vein graft to diagonal, saphenous vein graft to the obtuse marginal, saphenous vein graft to the posterior descending artery with last diagnostic cardiac catheterization notable for occlusion of the saphenous vein graft to the diagonal 2011 2. Class III angina pectoris, chronic 3. Calcific aortic valve disease with borderline severe to severe aortic stenosis 4. Bilateral carotid artery disease status post bilateral carotid enterectomy with recurrent bilateral stenoses 5. Obstructive sleep apnea and underlying pulmonary disease with O2 dependency 6. Long-standing hypertension 7. 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 No acute cardiac decline at this point time though patient with chronic dyspnea, angina pectoris, severe aortic stenosis Allergies Allergy/AdvReac Type Severity Reaction Status Date / Time acetaminophen AdvReac Mild anxiety,ins Verified 06/08/19 17:43 omnia codeine AdvReac Mild GI SYMPTOMS Verified 06/08/19 17:43 hydrocodone AdvReac Mild anxiety,ins Verified 06/08/19 17:43 omnia Home Medications Home Medications Medication Instructions Recorded Confirmed Type acetaminophen [Acetaminophen Extra 1,000 mg PO BID 06/08/19 06/08/19 History Strength] amlodipine 5 mg PO QAM 06/08/19 06/08/19 History aspirin 81 mg PO QAM 06/08/19 06/08/19 History carvedilol 12.5 mg PO BID 06/08/19 06/08/19 History clopidogrel 75 mg PO QAM 06/08/19 06/08/19 History cyanocobalamin (vitamin B-12) 1,000 mcg PO QAM 06/08/19 06/08/19 History [Vitamin B-12] duloxetine 60 mg PO QAM 06/08/19 06/08/19 History jdubgrtxixp-kmcxlgzgv-jdedarak 1 inh INHALATION DAILY 06/08/19 06/08/19 History [Trelegy Ellipta] furosemide 20 mg PO 3XWK 06/08/19 06/08/19 History gabapentin 300 mg PO BID 06/08/19 06/08/19 History levothyroxine 25 mcg PO QAM 06/08/19 06/08/19 History losartan 25 mg PO QPM 06/08/19 06/08/19 History metformin 500 mg PO BID 06/08/19 06/08/19 History multivitamin 1 tab PO QAM 06/08/19 06/08/19 History nitroglycerin [Nitrostat] 0.4 mg SUBLINGUAL UD 06/08/19 06/08/19 History pantoprazole 40 mg PO QAM 06/08/19 06/08/19 History potassium chloride 10 meq PO 3XWK 06/08/19 06/08/19 History rosuvastatin 10 mg PO QPM 06/08/19 06/08/19 History Patient History Medical History Acute cholecystitis (Acute) CAD (coronary artery disease) (Chronic) "CABG x 4 2000 cath 2011 - SVG to 1st diagonal 100% occluded, other grafts patent stress test 2014 - normal per patient" GERD (gastroesophageal reflux disease) (Chronic) BPH (benign prostatic hyperplasia) (Chronic) Dyslipidemia (Chronic) ERINN (obstructive sleep apnea) (Chronic) HTN (hypertension) (Chronic) Aortic stenosis, moderate (Chronic) Hypothyroidism (Chronic) Diabetes mellitus (Chronic) H/O echocardiogram (Chronic) "04/2015 - EF 55%, moderate " Amputated finger (Chronic) Surgical History H/O repair of right rotator cuff (Chronic) S/P TURP (Chronic) S/P laminectomy with spinal fusion (Chronic) "2011" History of CEA (carotid endarterectomy) (Chronic) "left - 2011, right - 2012" Hx of cataract surgery (Chronic) Family History Brother Diabetes Coronary heart disease, Onset Age: 60 Brother Coronary heart disease, Onset Age: 50 Social History Preferred Language: Syriac Communication Ability: Effective Beliefs That Will Affect Care: None marital status: Current Living Situation: Spouse current occupational status: retired Other Information That Helps Us Care for You: No Feels Safe at Home: Yes Safety Concerns: Feels Safe At This Time Smoking Status: Never smoker Tobacco Type: cigarettes and smokeless tobacco ; packs per day: 4 ; Years Smoked: 25 ; Do You Dip or Chew Tobacco: No ; Second Hand Exposure: No ; Tobacco Cessation Education Requested by Patient: No Hx Alcohol Use: No Hx Substance Use: No Review of Systems Review of Systems: All systems reviewed & are unremarkable except as noted in HPI & below Physical Exam Constitutional: + ill appearing and + obese Eyes: PERRL, conjunctivae normal, anicteric sclerae ENMT: external ear and nose normal, oropharynx normal Neck: + thick neck Bilateral carotid enterectomy scars present Respiratory: Diminished breath sounds, no rhonchi rales Cardiovascular: Vessels: no JVD Extremities: no edema Distant heart sounds with regular rhythm grade 2/6 systolic murmur. Carotid delay is present. There are diminished peripheral pulses Gastrointestinal (Abdomen): Obese, distended hypoactive to absent bowel sounds Musculoskeletal: Extremities: extremities normal to inspection Results & Data Vital Signs (Past 12 Hours) Vital Signs Temp Pulse Pulse Resp BP Pulse Ox 06/09/19 08:28 36.4 C L 106 H 16 104/65 92 06/09/19 07:37 36.5 C 102 H 20 138/81 91 06/09/19 07:00 100 H 22 85 L 06/09/19 04:04 93 H 06/09/19 04:00 36.9 C 87 20 119/68 93 06/09/19 03:40 87 18 95 06/09/19 03:15 37.6 C H 88 18 143/78 H 95 06/09/19 02:00 87 06/08/19 23:55 37.0 C 86 20 139/78 92 06/08/19 22:15 85 16 93 Laboratory Results Laboratory Results - last 24 hr 06/08/19 06/08/19 06/08/19 17:13 17:13 17:14 WBC 14.08 H RBC 4.91 Hgb 15.4 Hct 44.1 MCV 89.8 MCH 31.4 MCHC 34.9 RDW Std Deviation 46.6 H RDW Coeff of Maryan 14.2 Plt Count 191 MPV 9.3 Immature Gran % (Auto) 0.4 Neut % (Auto) 82.3 Lymph % (Auto) 6.2 [place] % (Auto) 11.0 Eos % (Auto) 0.0 Baso % (Auto) 0.1 Immature Gran # (Auto) 0.05 H Neut # (Auto) 11.60 H Lymph # (Auto) 0.87 L [place] # (Auto) 1.55 H Eos # (Auto) 0.00 Baso # (Auto) 0.01 Sodium 131 L Potassium 4.3 Chloride 94 L Carbon Dioxide 29 Anion Gap 8.0 BUN 10 Creatinine 0.78 Est Cr Clr Drug Dosing 74.0 Est GFR ( Amer) 97.4 Est GFR (Non-Af Amer) 84.1 BUN/Creatinine Ratio 12.7 Glucose 160 H POC Glucose Estimat Average Glucose Hemoglobin A1c Calcium 9.4 Magnesium Total Bilirubin 1.1 H Direct Bilirubin AST 10 L ALT 18 Alkaline Phosphatase 52 Troponin I < 0.015 Total Protein 8.0 Albumin 4.0 Globulin 4.0 Albumin/Globulin Ratio 1.0 Lipase 46 L Urine Color Dark Yellow Urine Appearance Clear Urine pH 7.5 Ur Specific [place] 1.025 Urine Protein 3+ H Urine Glucose (UA) 1+ H Urine Ketones 2+ H Urine Blood Negative Urine Nitrite Negative Urine Bilirubin Negative Urine Urobilinogen Negative Ur Leukocyte Esterase Negative Urine WBC (Auto) 1-5 Urine RBC (Auto) 0-4 U Hyaline Cast (Auto) 1-5 U Epithel Cells (Auto) 10-20 H Urine Bacteria (Auto) Negative 06/08/19 06/08/19 06/09/19 21:20 22:50 00:14 WBC RBC Hgb Hct MCV MCH MCHC RDW Std Deviation RDW Coeff of Maryan Plt Count MPV Immature Gran % (Auto) Neut % (Auto) Lymph % (Auto) [place] % (Auto) Eos % (Auto) Baso % (Auto) Immature Gran # (Auto) Neut # (Auto) Lymph # (Auto) [place] # (Auto) Eos # (Auto) Baso # (Auto) Sodium Potassium Chloride Carbon Dioxide Anion Gap BUN Creatinine Est Cr Clr Drug Dosing Est GFR ( Amer) Est GFR (Non-Af Amer) BUN/Creatinine Ratio Glucose POC Glucose 201 H 155 H Estimat Average Glucose Hemoglobin A1c Calcium Magnesium Total Bilirubin Direct Bilirubin AST ALT Alkaline Phosphatase Troponin I < 0.015 Total Protein Albumin Globulin Albumin/Globulin Ratio Lipase Urine Color Urine Appearance Urine pH Ur Specific [place] Urine Protein Urine Glucose (UA) Urine Ketones Urine Blood Urine Nitrite Urine Bilirubin Urine Urobilinogen Ur Leukocyte Esterase Urine WBC (Auto) Urine RBC (Auto) U Hyaline Cast (Auto) U Epithel Cells (Auto) Urine Bacteria (Auto) 06/09/19 06/09/19 06/09/19 05:42 05:42 05:42 WBC 15.51 H RBC 4.51 L Hgb 14.0 Hct 40.8 L MCV 90.5 MCH 31.0 MCHC 34.3 RDW Std Deviation 47.2 H RDW Coeff of Maryan 14.3 Plt Count 166 MPV 9.3 Immature Gran % (Auto) 0.4 Neut % (Auto) 84.4 Lymph % (Auto) 7.0 [place] % (Auto) 8.1 Eos % (Auto) 0.0 Baso % (Auto) 0.1 Immature Gran # (Auto) 0.06 H Neut # (Auto) 13.09 H Lymph # (Auto) 1.09 L [place] # (Auto) 1.26 H Eos # (Auto) 0.00 Baso # (Auto) 0.01 Sodium 131 L Potassium 4.3 Chloride 95 L Carbon Dioxide 27 Anion Gap 8.0 BUN 13 Creatinine 0.92 Est Cr Clr Drug Dosing 61.8 Est GFR ( Amer) 89.5 Est GFR (Non-Af Amer) 77.2 BUN/Creatinine Ratio 14.2 Glucose 141 H POC Glucose Estimat Average Glucose 151 Hemoglobin A1c 6.9 H Calcium 9.2 Magnesium 1.9 Total Bilirubin 1.1 H Direct Bilirubin AST 11 L ALT 16 Alkaline Phosphatase 48 Troponin I Total Protein 7.3 Albumin 3.1 L Globulin 4.2 H Albumin/Globulin Ratio 0.7 L Lipase Urine Color Urine Appearance Urine pH Ur Specific [place] Urine Protein Urine Glucose (UA) Urine Ketones Urine Blood Urine Nitrite Urine Bilirubin Urine Urobilinogen Ur Leukocyte Esterase Urine WBC (Auto) Urine RBC (Auto) U Hyaline Cast (Auto) U Epithel Cells (Auto) Urine Bacteria (Auto) 06/09/19 06/09/19 06/09/19 05:42 06:12 08:06 WBC RBC Hgb Hct MCV MCH MCHC RDW Std Deviation RDW Coeff of Maryan Plt Count MPV Immature Gran % (Auto) Neut % (Auto) Lymph % (Auto) [place] % (Auto) Eos % (Auto) Baso % (Auto) Immature Gran # (Auto) Neut # (Auto) Lymph # (Auto) [place] # (Auto) Eos # (Auto) Baso # (Auto) Sodium Potassium Chloride Carbon Dioxide Anion Gap BUN Creatinine Est Cr Clr Drug Dosing Est GFR ( Amer) Est GFR (Non-Af Amer) BUN/Creatinine Ratio Glucose POC Glucose 175 H 150 H Estimat Average Glucose Hemoglobin A1c Calcium Magnesium Total Bilirubin 1.2 H Direct Bilirubin 0.4 H AST 9 L ALT 16 Alkaline Phosphatase 47 Troponin I < 0.015 Total Protein 7.3 Albumin 3.2 L Globulin Albumin/Globulin Ratio Lipase Urine Color Urine Appearance Urine pH Ur Specific [place] Urine Protein Urine Glucose (UA) Urine Ketones Urine Blood Urine Nitrite Urine Bilirubin Urine Urobilinogen Ur Leukocyte Esterase Urine WBC (Auto) Urine RBC (Auto) U Hyaline Cast (Auto) U Epithel Cells (Auto) Urine Bacteria (Auto) Diagnostic Findings 09-JUN-2019 09:42:19 [facility]-MED[facility] ROUTINE RETRIEVAL Normal sinus rhythm Left axis deviation Septal infarct , age undetermined Abnormal ECG When compared with ECG of 08-JUN-2019 16:56, (unconfirmed) QT has lengthened
--- NOTE | 2019-06-09 10:22 | Discharge Summary ---
Date of Service June 09, 2019 Admission HPI Per Admitting Provider Mr. Campo is a 83-year-old male who has significant past medical history of CAD s/p CABG x 4 2000 and PTCA x 1 2006, severe aortic stenosis, bilateral carotid artery stenosis status post L CEA 02/09 and R CEA 08/18 with re-stenosis of L carotid 70-99%, COPD, ERINN on CPAP, HTN, HLD, T2DM, hypothyroidism GERD, BPH who presents to [facility] ED secondary to shortness of breath and abdominal pain x3 days. He was initially seen in outpatient clinic and seen by Dolly Prieto PA-C. In clinic he was found to be hypoxic between 80 to 86% with complaints of abdominal pain. He uses 3 L of O2 at at bedtime with his CPAP, but otherwise does not require oxygen. Due to the above he was referred to ED for further evaluation. He notes over the past 3 days he has been having intermittent abdominal pain, comes and goes, worse with movement, touch and meals, improves with rest, never had in the past, did not try anything to make it better. He had decreased appetite today. Intermittent nausea but no vomiting. Denies any fever, chills, sweats, recent illness, dizziness, lightheadedness, syncope, chest pain, palpitations, shortness breath at rest, cough, hemoptysis, emesis, diarrhea, constipation, dysuria, increased urgency with urination, hematuria, melena, hematochezia. He denies any weight loss or gain, lower extremity edema or orthopnea. He denies any recent travel or surgical procedure. He does have history of COPD and takes his Trelegy as prescribed. He has not needed his albuterol inhaler. In ED pt was hypertensive and hypoxic requiring 3L of O2 via NC, he was afebrile WBC 14k, Na 131, K 4.3, bun 10, Cr 0.78, glucose 160, Tbili 1.1, AST 10, ALT 18, ALP 52, trop WNL CXR: elevated R hemidiaphragm but no acute cardiopulmonary abnormality CT scan abd/pelvis: concerning for acute cholecystitis Surgical consultation was performed by Dr. Ty, IV antibiotics initiated Admission Exam Per Admitting Provider Physical Exam: Constitutional: WD/WN, elderly male, vitals as above, NAD, sitting up in bed, pleasant, conversing easily Head: Normocephalic, Atraumatic Eyes: PERRL, conjunctivae normal, anicteric sclerae ENMT: external ear and nose normal, oropharynx dry mucous membranes Neck: trachea midline, no thyromegaly normal visual inspection Respiratory: normal respiratory effort, lungs clear to auscultation, no wheeze, rales, rhonchi. on O2 via NC 3L. Normal insp/exp effort, no accessory muscle use Cardiovascular: RRR, 2/6 harsh RIVER noted throughout precordium, no edema Vess els: no JVD, L carotid bruit Chest: normal inspection of chest Abdomen: normal bowel sounds, soft, tender to palpation RUQ, no hepatosplenomegaly, no rebound/guarding or rigidity Musculoskeletal: no cyanosis or clubbing, extremities motor strength 5/5 Skin: no rashes, warm and dry normal turgor Neurologic: PERRL, EOMI, accommodation nl, no face palsy, no dysarthria CN's II-XI intact bilaterally and moves all extremities Psychiatric: A+Ox3, euthymic affect Lymphatic: no cervical or axillary lymphadenopathy : deferred Principal Diagnosis Acute cholecystitis, CAD status post CABG x4 and PTCA x1, severe aortic stenosis, ERINN on CPAP, COPD, diabetes type 2 Discharge Exam Constitutional well developed, well nourished, + ill appearing and + obese Eyes PERRL, conjunctivae normal, anicteric sclerae ENMT external ear and nose normal, oropharynx normal Neck trachea midline, no thyromegaly Respiratory normal respiratory effort; no respiratory distress Auscultation: lungs clear to auscultation bilaterally Cardiovascular Rate/Rhythm: regular rate and regular rhythm Heart Sounds: + murmur (2/6 over aortic area) Gastrointestinal (Abdomen) Inspection/Auscultation: + abdomen distended Percussion/Palpation: + abdomen tender (Tender right upper quadrant with positive Melo sign and rebound tenderness) and abdomen soft Discharge Data Allergies Allergy/AdvReac Type Severity Reaction Status Date / Time acetaminophen AdvReac Mild anxiety,ins Verified 06/08/19 17:43 omnia codeine AdvReac Mild GI SYMPTOMS Verified 06/08/19 17:43 hydrocodone AdvReac Mild anxiety,ins Verified 06/08/19 17:43 omnia Consultations 06/08/19 20:24 Consult Cardiology Routine Consult Case Management - Discharge Planning Routine 06/09/19 10:00 Burn CD for patient Routine Ordered Studies 06/08/19 16:40 CT abd pelvis wo con Stat Hospital Course (1) Acute cholecystitis: Mr. Campo is a 83-year-old male who has significant past medical history of CAD s/p CABG x 4 2000 and PTCA x 1 2006, severe aortic stenosis, bilateral carotid artery stenosis status post L CEA 02/09 and R CEA 08/18 with re-stenosis of L carotid 70-99%, COPD, ERINN on CPAP, HTN, HLD, T2DM, hypothyroidism GERD, BPH who presents to [facility] ED secondary to shortness of breath and abdominal pain x3 days. Has been on n.p.o., IV fluids pain medications Has been getting intravenous Zosyn since admission Appreciate surgery input and recommendation Clinically little better but overall condition seems to be deteriorated and will need acute surgical intervention as per surgeon and given his complicated medical problem he will be better off any tertiary care center for proposed surgical intervention. Discussed with the and the patient and they were agreeable for the transfer The case was discussed with Dr. Santana , the surgeon from [place] and the patient will be transferred under his care via ALS (2) Hypoxia: Pt uses O2 at HS with CPAP otherwise does not require O2 hypoxic on arrival requiring 3L O2 via NC CXR no acute cardiopulm abnormality hx of COPD, , CAD, ERINN titrate O2 as needed DuoNeb QID incentive spirometry Remains stable (3) CAD (coronary artery disease): hx of CABG x 4 2000, with additional angioplasty in 2006 stent to L circumflex on ASA, Statin, Losartan, coreg as outpt recently restarted on plavix due to carotid artery stenosis ECG with anterolateral t wave inversions - last comparsion 2008 Denies any cardiac symptoms Appreciate cardiology input and recommendation (4) Aortic stenosis, moderate: last echocardiogram per family 1.5 month ago at [facility] last echo in [facility] 09/2017 EF 55% with inf hypokinesis, mod-severe The patient will be transferred to [facility] in [place] for continued care (5) Diabetes mellitus: A1 6.9 11/2018 obtain a1c in a.m. lantus/novolog per protocol hold metformin Check blood sugar has needed (6) HTN (hypertension): blood pressure elevated in ED, likely in setting of pain IV APAP 1g x 1 now will receive coreg 12.5mg and losartan 25mg this evening continue home regimen of amlodipine, losartan, coreg hold lasix for now Blood pressure seems to be maintaining on the lower side of normal (7) Carotid artery stenosis: History of left CEA 02/09, history of right CEA 08/13 Repeat carotid ultrasound 2019 revealed left carotid artery 70 to 99% On ASA, statin and recently initiated on Plavix for medical optimization Follows with vascular Dr. Kirby Aspirin and Plavix are on hold for possible surgical intervention (8) Dyslipidemia: continue crestor (9) Hypothyroidism: continue levothyroxine (10) ERINN (obstructive sleep apnea): CPAP at (11) GERD (gastroesophageal reflux disease): continue PPI (12) DVT prophylaxis: SCD/TEDS due to possible upcoming surgical intervention monitor daily need for chemical prophylaxis Follow up: PCP Dr. Anthony upon discharge His overall condition deteriorated with increasing signs of infection and increasing white count Discussed with the surgeon wanted him to be transferred to tertiary care center for surgical intervention with complicated medical history The case was discussed with the and she was agreeable with the transfer Discussed with Dr. Santana, the surgeon in [facility] and he will be transferred via ALS sometime this morning. Total Time Total Time Spent Total Time Spent (In Minutes): 40 minutes Total Time Includes: Examination of the Patient, Discharge Planning, Medication Reconciliation and Communication With Other Providers Discharge Plan Discharge Items Patient Disposition: Transfer Acute Care Hospital Reason For Visit: ACUTE CHOLECYSTITIS Discharge Diagnosis: Acute cholecystitis, CAD status post CABG x4 and PTCA x1, severe aortic stenosis, ERINN on CPAP, COPD, diabetes type 2 Condition on Discharge: Fair Activity: As commented below Activity Comment: As per inpatient care Non-emergency contact: Primary Care Provider Call non-emergency contact if: you have any medication questions and your symptoms worsen Follow-up/Referrals: Jae Anthony MD [Primary Care Provider] - (Will need to see your primary care physician within 1 week following discharge from the hospital) Diet: Clear liquid Diet Comment: N.p.o. for now Addtl Attending Provider Instructions: He will be transferred to [facility] at [place] for surgery for acute cholecystitis Addtl Rep[employer] Provider Instructions: All of his home medications were continued on discharge on paper but he has been getting medications as an inpatient which is as below: Current Inpatient Medications Acetaminophen (Tylenol) 650 mg PO QID [facility] Stop: 07/08/19 20:59 Last Admin: 06/09/19 08:19 Dose: 650 mg Documented by: Acetaminophen (Tylenol) 650 mg PO Q4H PRN PRN Reason: Pain or Fever Stop: 07/08/19 20:23 Al Hydrox/Mg Hydrox/Simethicone (Maalox) 15 ml PO Q4H PRN PRN Reason: Dyspepsia Stop: 07/08/19 20:23 Albuterol (Duoneb) 3 ml NEB QIDR [facility] Stop: 07/09/19 06:59 Last Admin: 06/09/19 06:57 Dose: 3 ml Documented by: Amlodipine Besylate (Norvasc) 5 mg PO QAM [facility] Stop: 07/09/19 08:59 Last Admin: 06/09/19 08:18 Dose: 5 mg Documented by: Carvedilol (Coreg) 12.5 mg PO BID [facility] Stop: 07/08/19 20:59 Last Admin: 06/09/19 08:16 Dose: 12.5 mg Documented by: Dextrose (Dextrose 50%) 25 - 50 ml IV UD PRN; Protocol PRN Reason: Hypoglycemia Protocol Stop: 07/08/19 20:23 Duloxetine HCl (Cymbalta) 60 mg PO QAM [facility] Stop: 07/09/19 08:59 Last Admin: 06/09/19 08:17 Dose: 60 mg Documented by: Gabapentin (Neurontin) 300 mg PO BID [facility] Stop: 07/08/19 20:59 Last Admin: 06/09/19 08:17 Dose: 300 mg Documented by: Glucagon (Glucagen) 1 mg SQ UD PRN; Protocol PRN Reason: Hypoglycemia Protocol Stop: 07/08/19 20:23 Glucose (Glucose 40%) 15 - 30 gm PO UD PRN; Protocol PRN Reason: Hypoglycemia Protocol Stop: 07/08/19 20:23 Glucose (Dex4 Glucose) 4 - 8 tabs PO UD PRN; Protocol PRN Reason: Hypoglycemia Protocol Stop: 07/08/19 20:23 Piperacillin Sod/Tazobactam (Sod 3.375 gm/ Dextrose) 115 mls @ 28.75 mls/hr IV Q8H UNA; Protocol Stop: 06/18/19 18:59 Last Admin: 06/09/19 08:15 Dose: 28.8 mls/hr Documented by: Sodium Chloride (Nss 1000ml) 1,000 mls @ 60 mls/hr IV .[id number] [facility] Stop: 07/08/19 21:59 Last Admin: 06/08/19 22:08 Dose: 60 mls/hr Documented by: Metronidazole (Flagyl) 500 mg in 100 mls @ 100 mls/hr IV Q8H [facility] Stop: 06/19/19 08:59 Insulin Aspart (Novolog Flexpen) 0 units SC Q6 [facility] Stop: 07/09/19 00:00 Last Admin: 06/09/19 06:13 Dose: 1 units Documented by: Insulin Glargine (Lantus Solostar Pen) 5 units SC HS [facility] Stop: 07/09/19 20:59 Levothyroxine Sodium (Synthroid) 25 mcg PO DAILYBB [facility] Stop: 07/09/19 06:29 Last Admin: 06/09/19 06:08 Dose: 25 mcg Documented by: Losartan Potassium (Cozaar) 25 mg PO QPM [facility] Stop: 07/08/19 20:59 Last Admin: 06/08/19 21:13 Dose: 25 mg Documented by: Magnesium Hydroxide (Milk Of Magnesia) 30 ml PO Q12H PRN PRN Reason: Constipation Stop: 07/08/19 20:23 Miscellaneous (Carbohydrates For Hypoglycemia) 15 - 30 gm PO UD PRN PRN Reason: Hypoglycemia Protocol Stop: 07/08/19 20:23 Miscellaneous (Order Awaiting Action) 1 ea N/A QS [facility] Stop: 07/09/19 00:00 Last Admin: 06/09/19 08:15 Dose: Not Given Documented by: Miscellaneous Information (Consult) 1 ea N/A UD PRN PRN Reason: Consult Stop: 07/08/19 20:23 Ondansetron HCl (Zofran) 4 mg IV Q6H PRN PRN Reason: Nausea Stop: 07/08/19 20:23 Oxycodone HCl (Roxicodone Immediate Rel) 5 mg PO Q8H PRN PRN Reason: Severe Pain Stop: 06/22/19 20:23 Pantoprazole Sodium (Protonix) 40 mg PO QAM [facility] Stop: 07/09/19 08:59 Last Admin: 06/09/19 08:18 Dose: 40 mg Documented by: Potassium Chloride (Klor-Con M10) 10 meq PO MoWeFr@0900 [facility] Stop: 07/11/19 08:59 Rosuvastatin Calcium (Crestor) 10 mg PO QPM [facility] Stop: 07/08/19 20:59 Last Admin: 06/08/19 21:12 Dose: 10 mg Documented by: Pending Studies at Discharge: No Stand-Alone Forms: [facility] Skilled Items Patient informed of condition?: Yes DNR: Yes Discharge Level of Care: Other Communicable Disease: No Discharge Prognosis: Stable Lines: None Urinary Catheter: No Medications and DC Order Prescriptions: Continued metformin 500 mg tablet 500 mg PO BID RF: 0 potassium chloride 10 mEq capsule, extended release 10 meq PO 3XWK RF: 0 carvedilol 12.5 mg tablet 12.5 mg PO BID RF: 0 clopidogrel 75 mg tablet 75 mg PO QAM RF: 0 amlodipine 5 mg tablet 5 mg PO QAM RF: 0 aspirin 81 mg Tablet,Delayed Release (Dr/Ec) 81 mg PO QAM RF: 0 acetaminophen [Acetaminophen Extra Strength] 500 mg Tablet 1,000 mg PO BID RF: 0 levothyroxine 25 mcg tablet 25 mcg PO QAM RF: 0 pantoprazole 40 mg tablet,delayed release (DR/EC) 40 mg PO QAM RF: 0 losartan 25 mg tablet 25 mg PO QPM RF: 0 gabapentin 300 mg capsule 300 mg PO BID RF: 0 furosemide 20 mg tablet 20 mg PO 3XWK RF: 0 rosuvastatin 20 mg tablet 10 mg PO QPM RF: 0 duloxetine 60 mg capsule,delayed release(DR/EC) 60 mg PO QAM RF: 0 Trelegy Ellipta 100-62.5-25 mcg blister with device 1 inh inhalation DAILY RF: 0 multivitamin Tablet 1 tab PO QAM RF: 0 cyanocobalamin (vitamin B-12) [Vitamin B-12] 1,000 mcg Tablet 1,000 mcg PO QAM RF: 0 nitroglycerin [Nitrostat] 0.4 mg Tablet, Sublingual 0.4 mg sublingual UD RF: 0 Discharge Orders: Discharge Order (Routine); Ordered 06/09/19 Ordered By: Juliana Yates Admission Data Admit Date/Time: 06/08/19 19:41 Attending Provider: Juliana Yates Admit Provider: Piter Anderson Primary Care Provider: Jae Anthony Other Providers: Farrukh Santo ; Piter Anderson
[2019-06-09] MEDS ORDERED: INSULIN GLARGINE SOLOSTAR 100 UNITS/ML 3 ML PEN SC SCH (21:00)
[2019-06-11] MEDS ORDERED: POTASSIUM CHLORIDE 10 MEQ TABCR PO SCH (09:00)
== END 2019-06-09 11:40 | disposition short-term general hospital (02) | DRG 446 ==
LOC: ED 16:21 → 2W 19:41 → SUATTDRO 19:41 → 2W 20:12

== ENCOUNTER 2022-05-26 10:27 | Inpatient (IN) ==
--- NOTE | 2022-04-29 13:12 | PAT Medication Instructions ---
Medication Instructions Date of Service April 29, 2022 Home Medications acetaminophen 500 mg tablet (Acetaminophen Extra Strength) 1,000 mg PO BID aspirin 81 mg tablet,delayed release 81 mg PO QAM carvedilol 12.5 mg tablet 12.5 mg PO BID clopidogrel 75 mg tablet 75 mg PO QAM cyanocobalamin (vitamin B-12) 1,000 mcg tablet (Vitamin B-12) 1,000 mcg PO QAM duloxetine 60 mg capsule,delayed release 60 mg PO QAM fluticasone fur. 100 mcg-umeclid 62.5 mcg-vilant 25 mcg inhalat.powder (Trelegy Ellipta) 1 inh inhalation QAM levothyroxine 25 mcg tablet 25 mcg PO QAM losartan 25 mg tablet 25 mg PO QPM metformin 500 mg tablet 500 mg PO BID multivitamin 1 tab PO QAM nitroglycerin 0.4 mg sublingual tablet (Nitrostat) 0.4 mg sublingual UD pantoprazole 40 mg tablet,delayed release 40 mg PO QAM potassium chloride 10 mEq capsule,extended release 10 meq PO QAM rosuvastatin 20 mg tablet 40 mg PO QPM magnesium oxide 500 mg tablet 500 mg PO QAM pregabalin 75 mg capsule (Lyrica) 75 mg PO BID torsemide 20 mg tablet 20 mg PO QAM Continue as directed nitroglycerin 0.4 mg sublingual tablet (Nitrostat) 0.4 mg sublingual UD(if needed) ASK your prescriber and surgeon aspirin 81 mg tablet,delayed release 81 mg PO QAM clopidogrel 75 mg tablet 75 mg PO QAM DO NOT take the morning of surgery cyanocobalamin (vitamin B-12) 1,000 mcg tablet (Vitamin B-12) 1,000 mcg PO QAM metformin 500 mg tablet 500 mg PO BID multivitamin 1 tab PO QAM potassium chloride 10 mEq capsule,extended release 10 meq PO QAM magnesium oxide 500 mg tablet 500 mg PO QAM torsemide 20 mg tablet 20 mg PO QAM Take morning of surgery With a small sip of water, OTHERWISE NOTHING TO EAT OR DRINK AFTER MIDNIGHT: acetaminophen 500 mg tablet (Acetaminophen Extra Strength) 1,000 mg PO BID carvedilol 12.5 mg tablet 12.5 mg PO BID duloxetine 60 mg capsule,delayed release 60 mg PO QAM fluticasone fur. 100 mcg-umeclid 62.5 mcg-vilant 25 mcg inhalat.powder (Trelegy Ellipta) 1 inh inhalation QAM levothyroxine 25 mcg tablet 25 mcg PO QAM pantoprazole 40 mg tablet,delayed release 40 mg PO QAM pregabalin 75 mg capsule (Lyrica) 75 mg PO BID Take evening before surgery acetaminophen 500 mg tablet (Acetaminophen Extra Strength) 1,000 mg PO BID carvedilol 12.5 mg tablet 12.5 mg PO BID losartan 25 mg tablet 25 mg PO QPM metformin 500 mg tablet 500 mg PO BID rosuvastatin 20 mg tablet 40 mg PO QPM pregabalin 75 mg capsule (Lyrica) 75 mg PO BID Other Notes If you have any questions please call us at [phone] or [phone] or [phone] or [phone]
--- NOTE | 2022-05-12 12:32 | Anesthesiology Consultation ---
Date of Service May 12, 2022 Assessment & Plan (1) Encounter for pre-operative examination: - COVID screening: Per assessment on 05/12: No known COVID-19 positive contacts or current COVID-19 related symptoms. Travel screen negative. Patient vaccinated. At surgeon discretion if preop Covid testing being done. - [facility] cardiology office visit (04/22/22): "patient describes stable cardiac signs and symptoms, had nonischemic response to nuclear stress testing in September,, and patent grafts were noted at the time of diagnostic cardiac catheterization in 2019. The patient's EKG is abnormal, however relatively unchanged compared to historic tracings dating back to September 2021 in January,. Patient has an upcoming preoperative anesthesia clinic visit at [facility], and he was encouraged to keep this appointment, which time blood work will be assessed with regards to following up his history of anemia. For now continue chronic dual anti-platelet therapy with aspirin and clopidogrel, with plans that clopidogrel can be held preoperatively if felt to be necessary by Dr. Montana. From a cardiac perspective the patient is well optimized, and although given his degree of frailty, he is at risk for perioperative cardiac complication, after a yousif discussion with the patient and his family, through a process of shared decision-making we are in agreement that the benefits of the surgery in terms of improvement of his quality of life outweigh those risks." - Check BSG AM DOS - ASA/plavix: Per patient's daughter, to continue ASA/plavix perioperatively Chart Review Chart Review: Acceptable Risk for Surgery and Patient seen in Pre Admission Testing Teaching & Discussion Pre-Anesthesia Teaching/Discussion Notes: Instructed NPO after midnight before surgery,except medications with 15 cc of water. Medication instructions provided according to the PAT guidelines. History Surgery Operation Date: 05/26/22 09:50 Proposed Procedures p Right Common Femoral Artery Endarterectomy - Maurizio Montana MD s Arteriorgram with Bilateral Iliac Stents - Maurizio Montana MD Height/Weight Height: 5 ft 2 in Weight: 86.636 kg Allergies Allergy/AdvReac Type Severity Reaction Status Date / Time codeine AdvReac Mild Anxiety Verified 05/10/22 15:07 symptoms hydrocodone AdvReac Mild Anxiety, Verified 05/10/22 15:07 insomnia Medications Home Medications Medication Instructions Recorded Confirmed Last Taken acetaminophen 500 mg tablet 1,000 mg PO BID 06/08/19 04/28/22 06/08/19 (Acetaminophen Extra Strength) aspirin 81 mg tablet,delayed 81 mg PO QAM 06/08/19 04/28/22 06/08/19 release carvedilol 12.5 mg tablet 12.5 mg PO BID 06/08/19 04/28/22 06/08/19 clopidogrel 75 mg tablet 75 mg PO QAM 06/08/19 04/28/22 06/08/19 cyanocobalamin (vitamin B-12) 1,000 mcg PO QAM 06/08/19 04/28/22 06/08/19 1,000 mcg tablet (Vitamin B-12) duloxetine 60 mg capsule,delayed 60 mg PO QAM 06/08/19 04/28/22 06/08/19 release fluticasone fur. 100 mcg-umeclid 1 inh inhalation QAM 06/08/19 04/28/22 06/08/19 62.5 mcg-vilant 25 mcg inhalat.powder (Trelegy Ellipta) levothyroxine 25 mcg tablet 25 mcg PO QAM 06/08/19 04/28/22 06/08/19 losartan 25 mg tablet 25 mg PO QPM 06/08/19 04/28/22 06/07/19 metformin 500 mg tablet 500 mg PO BID 06/08/19 04/28/22 06/08/19 multivitamin 1 tab PO QAM 06/08/19 04/28/22 06/08/19 nitroglycerin 0.4 mg sublingual 0.4 mg sublingual UD 06/08/19 04/28/22 Unknown tablet (Nitrostat) pantoprazole 40 mg tablet,delayed 40 mg PO QAM 06/08/19 04/28/22 06/08/19 release potassium chloride 10 mEq 10 meq PO QAM 06/08/19 04/28/22 06/08/19 capsule,extended release rosuvastatin 20 mg tablet 40 mg PO QPM 06/08/19 04/28/22 06/07/19 magnesium oxide 500 mg tablet 500 mg PO QAM 04/28/22 04/28/22 Unknown pregabalin 75 mg capsule (Lyrica) 75 mg PO BID 04/28/22 04/28/22 Unknown torsemide 20 mg tablet 20 mg PO QAM 04/28/22 04/28/22 Unknown Past Medical History Medical History Aortic stenosis s/p TAVR BPH (benign prostatic hyperplasia) CAD (coronary artery disease) CABG x 4 (2000) Stent x1 (2006) Cath (2011) - SVG to 1st diagonal 100% occluded, other grafts patent Carotid artery disease s/p Left CEA (2011), right (2012) Diabetes mellitus Dyslipidemia GERD (gastroesophageal reflux disease) HTN (hypertension) Hypothyroidism ERINN (obstructive sleep apnea) CPAP with O2 3.5L HS Exercise / Class Metabolic Activity III < 4 Walking/Shop/Light housework Past Family History Family History Brother Diabetes Coronary heart disease, Onset Age: 60 Brother Coronary heart disease, Onset Age: 50 Diabetes Mother Diabetes Past Surgical History Surgical History Amputated finger H/O repair of right rotator cuff History of anesthesia reaction Slow to wake History of cardiac cath Stent x1 (2006) History of CEA (carotid endarterectomy) Left - 2012 Right - 2013 History of cholecystectomy History of colonoscopy History of coronary artery bypass graft CABG x4 (2000) History of heart valve replacement AVR [facility] after 2006 Hx of cataract surgery S/P laminectomy with spinal fusion Back surgeries x2 S/P TURP Past Anesthesia History No Family Hx of Anesthesia Complications and Other ("slow to wake" and perioperative hypotension (cholecystectomy)) History of PONV No Hx of PONV and No Hx of Motion Sickness Social History Smoking Status: Former smoker tobacco type: cigarettes and smokeless tobacco Do You Dip or Chew Tobacco: No Smoking End Date: QUIT 40 YRS AGO Hx Alcohol Use: Yes Alcohol type: beer alcohol intake frequency: holidays/special occasions only Hx Substance Use: No substance use type: does not use Review of Systems Patient denies chest pain, shortness of breath, fever, chills, cough, wheezing, palpitations. Physical Exam Vital Signs VITALS BP 120/70 P 76 TEMP 98.7 SP02 93%Ra RESP 18 PHYSICAL Full cervical extension range of motion. Full TMJ range of motion. TMD 3 finger breaths Mallampati Score 3 Dentition: full dentures upper/lower Lungs: clear throughout to auscultation Cardiac: regular rate and rhythm, no murmurs noted Spine: normal Carotid arteries: negative bruit Extremities: no edema Lab Results Anesthesia Preop Results Results Anesthesia Widget: WBC 4.89 K/ul (4.8-10.8) 05/12/22 Hgb 12.4 g/dl (14.0-18.0) L 05/12/22 Hct 38.2 % (40.1-51.0) L 05/12/22 Plt 155 K/uL (130-400) 05/12/22 Na 141 mmol/L (136-145) 05/12/22 K 4.5 mmol/L (3.5-5.1) 05/12/22 Cl 102 mmol/L (98-107) 05/12/22 CO2 31 mmol/L (21-32) 05/12/22 BUN 16 mg/dl (6-23) 05/12/22 Creat 0.77 mg/dl (0.6-1.4) 05/12/22 Glucose Level 234 mg/dl (70-99(Fasting)) H 05/12/22 PT 10.5 Seconds (9.0-12.0) 05/12/22 PTT 25.5 Seconds (21.0-31.0) 05/12/22 INR 1.0 (0.9-1.1) 05/12/22 HA1c 7.9 % (4.5-5.6) H 05/12/22 Blood Type O Negative 05/12/22 Antibody Screen NEGATIVE 05/12/22 Testing Electrocardiogram Date: 04/22/22 NSR at 78bpm. Septal infarct, age undetermined. NS TWA. Chest X-Ray Date: 05/12/22 FINDINGS: Median sternotomy wires are unchanged. Surgical clips are again seen over the cardiomediastinal silhouette which is unchanged in appearance from prior exam. The lungs are clear. No evidence of pleural effusion or pneumot horax. Previously noted right hemidiaphragmatic elevation has resolved. IMPRESSION: No acute chest disease. Stable postsurgical changes about the heart. Echocardiogram Date: 10/22/21 LVEF 59%. Mild concentric LVH, sigmoid appearing septum. Grade 1 diastolic dysfunction. No regional motion abnormality. Status post TAVR with sapient type prosthetic valve. The aortic valve prosthesis systolic gradients are normal for this type prosthesis. Proximal ascending thoracic aorta is mildly enlarged. Stress Test Date: 10/22/21 Type: nuclear Myocardial perfusion imaging is normal. LVEF 61%. LVEF 61%. 80% MPHR. COVID-19 Risk Screen Screening Information COVID-19 Screen Date: 05/12/22 Exposure 21 Days Family/Household +COVID Last 21 Days: No Exposure 10 Days Any COVID Exposure Last 10 Days: No Symptoms Last 10 Days Experienced COVID Sx Last 10 Days: No + COVID 0-90 Days COVID + in Last 0-90 Days: No
--- NOTE | 2022-05-25 14:37 | History & Physical Report ---
Date of Service May 25, 2022 Assessment & Plan (1) Rest pain of both lower extremities due to atherosclerosis: Plan: At this point with these findings I recommend the right common femoral artery endarterectomy and bilateral iliac artery stenting. He understands the risks options and benefits and agrees to have this procedure. 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 As you know he is an 86-year-old gentleman who in the past and had bilateral carotid endarterectomies. Within the last year he has developed discomfort in both lower extremities. He claims it is gotten to a point where he cannot rest comfortably at night. He does complain of bilateral numbness in the lower extremities which actually gets worse when walking. He cannot walk without discomfort except for short distances. He denies any ulcerations of his lower extremities. His CT angio of his abdomen and pelvis showed significant occlus juvencio disease of the bilateral common iliac artery origins as well as the right common femoral artery. He recently had a CT angiogram of his carotids which shows 70% stenosis of the right internal carotid artery and less than 50% of the left. These are apparently restenotic lesions. He is asymptomatic from carotid disease. Allergies Allergy/AdvReac Type Severity Reaction Status Date / Time codeine AdvReac Mild Anxiety Verified 05/10/22 15:07 symptoms hydrocodone AdvReac Mild Anxiety, Verified 05/10/22 15:07 insomnia Home Medications Medication Instructions Recorded Confirmed Type acetaminophen 500 mg tablet 1,000 mg PO BID 06/08/19 04/28/22 History (Acetaminophen Extra Strength) aspirin 81 mg tablet,delayed 81 mg PO QAM 06/08/19 04/28/22 History release carvedilol 12.5 mg tablet 12.5 mg PO BID 06/08/19 04/28/22 History clopidogrel 75 mg tablet 75 mg PO QAM 06/08/19 04/28/22 History cyanocobalamin (vitamin B-12) 1,000 mcg PO QAM 06/08/19 04/28/22 History 1,000 mcg tablet (Vitamin B-12) duloxetine 60 mg capsule,delayed 60 mg PO QAM 06/08/19 04/28/22 History release fluticasone fur. 100 mcg-umeclid 1 inh inhalation QAM 06/08/19 04/28/22 History 62.5 mcg-vilant 25 mcg inhalat.powder (Trelegy Ellipta) levothyroxine 25 mcg tablet 25 mcg PO QAM 06/08/19 04/28/22 History losartan 25 mg tablet 25 mg PO QPM 06/08/19 04/28/22 History metformin 500 mg tablet 500 mg PO BID 06/08/19 04/28/22 History multivitamin 1 tab PO QAM 06/08/19 04/28/22 History nitroglycerin 0.4 mg sublingual 0.4 mg sublingual UD 06/08/19 04/28/22 History tablet (Nitrostat) pantoprazole 40 mg tablet,delayed 40 mg PO QAM 06/08/19 04/28/22 History release potassium chloride 10 mEq 10 meq PO QAM 06/08/19 04/28/22 History capsule,extended release rosuvastatin 20 mg tablet 40 mg PO QPM 06/08/19 04/28/22 History magnesium oxide 500 mg tablet 500 mg PO QAM 04/28/22 04/28/22 History pregabalin 75 mg capsule (Lyrica) 75 mg PO BID 04/28/22 04/28/22 History torsemide 20 mg tablet 20 mg PO QAM 04/28/22 04/28/22 History Past Med/Surg History Medical History Aortic stenosis s/p TAVR BPH (benign prostatic hyperplasia) CAD (coronary artery disease) CABG x 4 (2000) Stent x1 (2006) Cath (2011) - SVG to 1st diagonal 100% occluded, other grafts patent Carotid artery disease s/p Left CEA (2011), right (2012) Diabetes mellitus Dyslipidemia GERD (gastroesophageal reflux disease) HTN (hypertension) Hypothyroidism ERINN (obstructive sleep apnea) CPAP with O2 3.5L HS Surgical History Amputated finger H/O repair of right rotator cuff History of anesthesia reaction Slow to wake History of cardiac cath Stent x1 (2006) History of CEA (carotid endarterectomy) Left - 2012 Right - 2013 History of cholecystectomy History of colonoscopy History of coronary artery bypass graft CABG x4 (2000) History of heart valve replacement AVR [facility] after 2006 Hx of cataract surgery S/P laminectomy with spinal fusion Back surgeries x2 S/P TURP Family History Brother Diabetes Coronary heart disease, Onset Age: 60 Brother Coronary heart disease, Onset Age: 50 Diabetes Mother Diabetes Social History Smoking Status: Former smoker packs per day: 4; Years Smoked: 25; Second Hand Exposure: No; Hx Alcohol Use: Yes Alcohol type: beer Hx Substance Use: No Preferred Language: Setswana Communication Ability: Effective Bath Mix Operator Required: No Beliefs That Will Affect Care: Jainism Jainism Beliefs: UNITED EPISCOPAL marital status: Current Living Situation: Spouse and Family Current Living Situation Comment: LIVES WITH SPOUSE, DAUGHTER, SON IN LAW current occupational status: retired Feels Safe at Home: Yes Assistive Devices: Cane, CPAP, Denture - Upper, Denture - Lower, Glasses, Hearing Aid - Bilateral and Oxygen - at Night Review of Systems All systems reviewed & are unremarkable except as noted in HPI & below Physical Exam Physical Exam: Physical exam the patient is awake alert and oriented x3. He is in no apparent distress. His blood pressure is 122/60 on the left and 112/58 on the right. Radials carotids and superficial temporal arteries are +2 bilaterally. Lungs are clear to auscultation. Heart had a regular rate and rhythm. Abdominal exam is benign. I cannot appreciate any abnormal dilatation of the aorta. Femoral pulses are +1 bilaterally. I cannot palpate any pulses below. Capillary refill is slightly decreased in both lower extremities. Neurologic exam is intact to motor and sensory function.
[~2022-05-26 10:27] MED LIST: LACTATED RINGER'S 1,000 ML IV SCH; ceFAZolin 2000MG 2,000 MG/15 ML SYR IV SCH
[2022-05-26] MEDS ORDERED: HYDROmorphone INJ 1 MG/ML SYRINGE IV PRN ×2 (11:25→12:33)
[2022-05-26] MEDS ORDERED: ePHEDrine sulfate 50 MG/ML AMP IV PRN (11:25)
[2022-05-26] MEDS ORDERED: ATROPINE SULFATE 0.1 MG/ML 10ML SYR IV PRN ×2 (11:25→12:33)
[2022-05-26] MEDS ORDERED: ONDANSETRON INJ 2 MG/ML 2 ML VIAL IV PRN ×3 (11:25→19:10)
[2022-05-26] MEDS ORDERED: PHENYLEPHRINE 100MCG/ML 5ML SYR IV PRN (11:25)
[2022-05-26] MEDS ORDERED: LABETALOL HCL IV 5 MG/ML 20ML IV PRN ×2 (11:25→12:33)
[2022-05-26] MEDS ORDERED: fentaNYL citrate 100 MCG/2 ML VIAL IV PRN (11:25)
[2022-05-26] MEDS ORDERED: ROCURONIUM BROMIDE 10 MG/ML 5 ML VIAL IV ONE (11:45)
--- NOTE | 2022-05-26 12:07 | History & Physical Bridge Note ---
Date of Service May 26, 2022 History & Physical Bridge Note I have examined the patient, reviewed the History & Physical and in the interval since the performance of the History & Physical I have noted the following changes of clinical significance: no changes noted
[2022-05-26] MEDS ORDERED: fentaNYL citrate 100 MCG/2 ML VIAL ONE ×2 (12:14→15:44)
[2022-05-26] MEDS ORDERED: GELATIN SPONGE SZ 100 ONE (12:20)
[2022-05-26] MEDS ORDERED: LIDOCAINE 1% LOCAL 20 ML VIAL ONE (12:20)
[2022-05-26] MEDS ORDERED: THROMBIN FOR SOLN 20000 UNIT KIT ONE (12:20)
[2022-05-26] MEDS ORDERED: HEPARIN (PORCINE) 1000 UNIT/ML 10 ML (CATH LAB USE ONLY) ONE (12:20)
[2022-05-26] MEDS ORDERED: ceFAZolin 330 MG/ML 1 GM VIAL ONE (12:20)
[2022-05-26] MEDS ORDERED: BUPIVACAINE 0.5 % 5 MG/1 ML MPF 30ML VIAL ONE (12:21)
[2022-05-26] MEDS ORDERED: EPINEPHrine INJ 1 MG/ML AMP ONE (12:21)
[2022-05-26] MEDS ORDERED: PAPAVERINE HCL INJ 30 MG/ML 2 ML VIAL ONE (12:21)
[2022-05-26] MEDS ORDERED: DEXAMETHASONE SOD INJ 4 MG/ML VIAL ONE (13:02)
[2022-05-26] MEDS ORDERED: PROPOFOL IV EMULSION 10 MG/ML 20 ML VIAL IV ONE (13:02)
[2022-05-26] MEDS ORDERED: LIDOCAINE 2% MPF LOCAL 5 ML VIAL INFIL ONE (13:02)
[2022-05-26] MEDS ORDERED: ePHEDrine sulfate 50 MG/ML AMP ONE (13:02)
[2022-05-26] MEDS ORDERED: ONDANSETRON INJ 2 MG/ML 2 ML VIAL ONE (13:02)
[2022-05-26] MEDS ORDERED: HEPARIN SOD (PORCINE) 1000 UNIT/ML ONE ×2 (13:28→15:25)
[2022-05-26] MEDS ORDERED: VISIPAQUE IV PRN ×2 (13:48→15:57)
[2022-05-26] MEDS ORDERED: ALBUMIN HUMAN 5% 12.5 GM/250 ML VIAL IV ONE (14:51)
[2022-05-26] MEDS ORDERED: SURGICEL ABSORB HEMOSTAT 2IN X 14IN TOP ONE (15:56)
[2022-05-26] MEDS ORDERED: OPTIRAY 300 IV PRN (15:57)
--- NOTE | 2022-05-26 16:33 | Operative Report ---
Post Operative Report Pre & Post Diagnosis Operation Date: 05/26/22 13:20 Pre-Op Diagnosis: Rest pain of both lower extremities due to atherosclerosis Post-Op Diagnosis: Rest pain of both lower extremities due to atherosclerosis I identified the patient and participated in the time-out.: Yes Procedure Operation Date: 05/26/22 13:20 Actual Procedures p Right Common Femoral Artery Endarterectomy,(Right) with bovine patch - Maurizio Montana MD s Bilateral Iliac Stents(Bilateral) - Maurizio Montana MD Surgeon Maurizio Montana MD Laboratory Technologist Estefania,PAC Estimated Blood Loss 300 Findings Consistent with Post-Op Diagnosis Specimens none Anesthesia Type General Complications none Disposition Accompanied Patient To Recovery: No Disposition: Recovery Room Indications This is an 86-year-old gentleman who was seen in the office with complaints of rest pain at night in both lower extremities. His CT angiogram showed an occluded iliac on the left stenotic iliac on the right and an occluded right common femoral artery. I recommended endarterectomy to right common femoral artery and attempted bilateral iliac stenting. I have discussed the risks options and benefits of the procedure with the patient. The patient understands the risks options and benefits and agrees to the procedure. Description of Procedure The patient was taken to the operating room and placed in the supine position. Both groins were then prepped and draped in a sterile manner. A timeout was performed and the patient was identified. Longitudinal incision was made in the right groin. Was carried down through the common femoral artery was identified. It was isolated from the inguinal ligament down beyond the origin of the superficial femoral artery to the point where the superficial femoral artery was fairly soft. The common femoral artery just below the inguinal ligament and the proximal superficial femoral artery were rockhard and heavily calcified. Patient was heparinized at that time. After adequate heparinization was accomplished the common femoral superficial femoral and common femoral arteries were clamped proximal distally. It was hard to start a arteriotomy due to the amount of plaque but we were able to enter the plaque in the midportion of the common femoral artery. The arteriotomy was carried upward and downward to beyond the plaque in both directions. Endarterectomy was then started in the appropriate plane on the common carotid artery proximally. Good breakoff point was developed proximally. The dissection of the plaque was then carried downward past the profunda. The profundofemoral artery origin endarterectomized very nicely and no flaps were noted. Distally we had a fairly good breakoff point on the common femoral artery. The plaque wound was totally occlusive extending from the proximal common femoral artery down to just beyond the origin of the superficial femoral artery. Once this was totally removed. We used 7-0 Prolene tacking sutures for the distal end to tack down the end of the endarterectomy flap. Once this was done we used a bovine patch and closed the arteriotomy with the bovine patch using 5-0 Prolene suture. Once this was completed clamps were removed. There were 3 areas of bleeding between the sutures which were controlled with interrupted 5-0 Prolene's. Doppler signals in the superficial femoral artery beyond the endarterectomy site sounded good and multiphasic. The pulse itself was still on the weak side and the right common femoral artery. We then used ultrasound to locate the left common femoral artery. It was patent with posterior plaque present. Using ultrasound the left common femoral artery was punctured and a 7 Wallisian sheath was inserted. We then inserted a 7 Wallisian sheath through the bovine patch on the right side after puncturing the surface of the bovine. 035 wire was passed to the right side and passed a very easily into the aorta. The 035 wire then passed up the left side could not make it into the aorta but stopped in the iliac in the midportion. A pigtail was inserted through the right side and aortography was performed. This showed a 70 to 80% narrowing of the distal right common iliac artery and a totally occluded left common iliac artery. We then used an 035 wire and a Kumpe catheter to try to cross the lesion on the left. After multiple maneuvers the lesion was crossed and the Kumpe was passed up into the aorta. Hand-injection performed showed the Kumpe to be true lumen in the aorta. We then used an 035 stiff Glidewire through the Kumpe and remove the Kumpe catheter. We then inserted a 6 x 80 balloon to predilate the lesion in the left common iliac. Once this was completed we inserted an 8 x 39 VBX stent. It was positioned where the stenosis was. We did another aortogram through the right groin through the pigtail which showed the stent to be in good position. We then put an 035 wire of the right side followed by 8 x 39 VBX. We lined him up the same level and deployed both at the same time. Left side looked nice and smooth and fully expanded. The right side had a area which was stenotic. We then inserted a 12 x 4 balloon on the right side and postdilated the VBX stent. We then removed the balloon. We performed hand injections from both sides which showed the common iliac arteries to be widely patent with excellent flow. There was probably a 10 to 20% residual stenosis of the right common iliac artery which should not hinder the flow at all. Patient has been given heparin and rebolus during the case. ACT done at the end the procedure after protamine was less than 150. The sheath in the left groin was pulled pressure was applied and hemostasis was obtained. Pressure dressing was later applied. On the right side added hemostasis was obtained of the wound. After this was noted the wound was closed in the usual fashion using a 2-0 Vicryl suture for the femoral sheath and a 3-0 Vicryl suture for the subcutaneous layer. [place] were used for the skin edges. A Prevena dressing was placed over the wound.The patient left the operation room in satisfactory condition and tolerated the procedure well. All needle and sponge counts were correct at the end of the procedure. Salome Joyce Pac assisted due to lack of resident availability and was necessary for positioning, draping, retraction, wound closure deep layers, subcutaneous tissue, and skin closure and was necessary for assisting with the case. I attest to the content of the Intraoperative Record and any orders documented therein. Any exceptions are noted below.
[2022-05-26 17:11] LABS: Basophils # (auto) 0.01 K/uL (0-0.2); Basophils % (auto) 0.2 %; Eosinophils # (auto) 0.02 K/uL (0-0.50); Eosinophils % (auto) 0.4 %; Hematocrit (blood only) 29.3 % (40.1-51.0); Hemoglobin 9.6 g/dl (14.0-18.0); Immature Granulocytes # (auto) 0.03 K/uL (0.00-0.02); Immature Granulocytes % (auto) 0.5 %; Lymphocytes # (auto) 1.25 K/uL (1.2-3.4); Lymphocytes % (auto) 22.2 %; Mean Corpuscular Hemoglobin 29.2 pg (25.0-34.0); Mean Corpuscular Hgb Conc 32.8 g/dL (32.0-36.0); Mean Corpuscular Volume 89.1 fL (80.0-100.0); Mean Platelet Volume 9.3 fL (9.4-12.4); Monocytes # (auto) 0.14 K/uL (0.24-0.82); Monocytes % (auto) 2.5 %; Neutrophils # (auto) 4.17 K/uL (1.4-6.5); Neutrophils % (auto) 74.2 %; Platelet Count 130 K/uL (130-400); RDW Coefficient of Variation 16.5 % (11.5-14.5); RDW Standard Deviation 53.7 fL (36.4-46.3); Red Blood Count 3.29 M/uL (4.63-6.08); White Blood Count 5.62 K/ul (4.8-10.8)
--- NOTE | 2022-05-26 17:42 | Anesthesiology Progress Note ---
Date of Service May 26, 2022 Anesthesia Post Procedure Vital Signs Vital Signs: Temp Pulse Resp BP BP Pulse Ox O2 Del Method 05/26/22 17:35 83 20 149/74 H 95 Nasal Cannula 05/26/22 17:25 84 19 152/73 H 95 Nasal Cannula 05/26/22 17:05 87 17 158/63 H 94 Nasal Cannula 05/26/22 17:15 85 17 163/64 H 95 Nasal Cannula 05/26/22 16:55 89 18 166/64 H 93 Nasal Cannula 05/26/22 16:46 36.7 C 98 H 21 179/84 H 95 Nasal Cannula 05/26/22 11:03 36.7 C 69 20 165/69 H 135/64 93 Room Air 05/26/22 11:03 Room Air O2 Flow Rate 05/26/22 17:35 2 05/26/22 17:25 2 05/26/22 17:05 2 05/26/22 17:15 2 05/26/22 16:55 2 05/26/22 16:46 2 05/26/22 11:03 05/26/22 11:03 Transfer of Care Handoff Completed per policy Notes Mental Status: alert / awake / arousable and participated in evaluation Patient Amnestic to Procedure: Yes Nausea / Vomiting: adequately controlled Pain: adequately controlled Airway Patency, RR, SpO2: stable & adequate BP & HR: stable & adequate Hydration State: stable & adequate Anesthetic Complications: no major complications apparent
[2022-05-26 17:49] LABS: Calcium 8.7 mg/dl (8.5-10.1); Est GFR (African American) 98.6 ml/min; Est GFR (Non-African American) 85.1 ml/min; Potassium 4.3 mmol/L (3.5-5.1)
[2022-05-26] MEDS ORDERED: MoRPHine SULFATE 4 MG/ML 1 ML CARP\\VIAL IV PRN (19:10)
[2022-05-26] MEDS ORDERED: oxyCODONE/ACETAMINOPHEN 5mg/325mg TAB PO PRN (19:10)
[2022-05-26] MEDS ORDERED: NITROGLYCERIN SL 0.4 MG/TAB TAB SL SCH (19:10)
[2022-05-26] MEDS ORDERED: PHARMACY GLYCEMIC MGMT CONSULT PRN (19:10)
[2022-05-26] MEDS ORDERED: INFLUENZA VACCINE HIGH DOSE PF 65+ 0.7 ML SYR IM ONE (19:47)
--- NOTE | 2022-05-26 19:55 | Pharmacy Report ---
Pharmacy Glycemic Short Note 2 - Date of Service May 26, 2022 - Glycemic Short BSG Results (Last 24 hours): 05/26/22 05/26/22 05/26/22 11:00 16:48 17:00 Glucose 208 H POC Glucose 173 H 199 H OUTPATIENT ANTIDIABETIC REGIMEN: * Metformin 500mg PO BID * A1c = 7.9% 05/12/22 ASSESSMENT: * Type 2 diabetic admitted for R common fem artery endarterectomy and b/l iliac stenting * Patient was given IV dexamethasone lawson-op, is ordered a diet and is also ordered dextrose containing IVFs at 125cc/hr * Will give one time dose of NPH tonight to offset effects of steroid and continuous IV dextrose * Novolog will be given Q 4 hrs initially given potential for rising BSGs if diet offered tonight. Novolog doses will initially be set to "moderate- severe" stress level. This dosing will likely need lessened tomorrow if IVFs d/c'd and the effects of steroid dissipate PLAN FOR INPATIENT GLYCEMIC CONTROL: * Hold outpatient oral diabetes medications * Basal insulin * NPH 20 units x 1 (~0.2units/kg) * Bolus insulin * NovoLog per scale Q4hrs * Goal Range: Low 110 mg/dL - High 140 mg/dL * Correction Factor: 20 mg/dL/unit * Nutritional / Prandial insulin per carb ratio of 1 unit per 9 grams CHO consumed
[2022-05-26] MEDS ORDERED: NovoLIN-N (NPH) PER UNIT CHARGE SQ ONE (20:00)
--- NOTE | 2022-05-26 20:04 | Critical Care Consultation ---
Date of Consultation May 26, 2022 Assessment & Plan (1) Rest pain of both lower extremities due to atherosclerosis: Impression: 86-year-old male presents to the ICU following a elective right femoral endarterectomy and bilateral iliac stenting. Neuro - [facility] ICU: Negative Cardiac - PVDstatus post bilateral iliac stenting and right femoral endarterectomy. Management per surgical team -Continue ASA, Plavix -Monitor in ICU overnight History of aortic stenosis with TAVR and CAD s/p CABG x4 -According to cardiology note last EF 59% and functioning mechanical aortic valve. Carotid artery stenosispatient has had both right and left carotid endarterectomies. Last angiogram showed 70% stenosis of the right ICA and less than 50 of the left. He is currently asymptomatic HTNcontinue Coreg, losartan Respiratory - History of COPDformer smoker on home O2. Currently maintaining oxygen sat uration without respiratory distress on 2 L nasal cannula -Continue Trelegy Ellipta. Nebs as needed -Continuous monitoring on pulse ox GI - Advance diet as tolerated GERDProtonix RENAL/LYTES - Creatinine within normal limits, replete electrolytes as indicated - Strict I's and O's ENDO - DM type IIhold metformin in favor of sliding scale following contrast -ICU hyperglycemic protocol Hypothyroidcontinue Synthroid HEME - H&H stable, no significant EBL or signs of bleeding. Follow-up CBC in a.m. ID - Continue empiric Ancef LINES/IV ACCESS - Peripheral IVs DVT PROPHYLAXIS - SCDs, hold anticoagulants following procedure for now Thank you for allowing us to participate in the care of this patient. Please refer to my attending physician's documentation for any further recommendations. (2) Carotid artery stenosis: (3) CAD (coronary artery disease): (4) GERD (gastroesophageal reflux disease): (5) Dyslipidemia: (6) HTN (hypertension): (7) Diabetes mellitus: (8) Hypothyroidism: (9) Aortic stenosis, moderate: (10) History of CEA (carotid endarterectomy): (11) COPD (chronic obstructive pulmonary disease): Plan Impression: 86-year-old male presents to the ICU following a elective right femoral endarterectomy and bilateral iliac stenting. Neuro - [facility]: Negative Cardiac - PVDstatus post bilateral iliac stenting and right femoral endarterectomy. Management per surgical team -Continue ASA, Plavix -Monitor in ICU overnight History of aortic stenosis with TAVR and CAD s/p CABG x4 -According to cardiology note last EF 59% and functioning mechanical aortic valve. Carotid artery stenosispatient has had both right and left carotid endarterectomies. Last angiogram showed 70% stenosis of the right ICA and less than 50 of the left. He is currently asymptomatic HTNcontinue Coreg, losartan Respiratory - History of COPDformer smoker on home O2. Currently maintaining oxygen satur ation without respiratory distress on 2 L nasal cannula GI - Advance diet as tolerated GERDProtonix RENAL/LYTES - Creatinine within normal limits, replete electrolytes as indicated - Strict I's and O's ENDO - DM type IIhold metformin in favor of sliding scale following contrast -ICU hyperglycemic protocol Hypothyroidcontinue Synthroid HEME - H&H stable, no significant EBL or signs of bleeding. Follow-up CBC in a.m. ID - Continue empiric Ancef LINES/IV ACCESS - Peripheral IVs DVT PROPHYLAXIS - SCDs, hold anticoagulants following procedure for now Thank you for allowing us to participate in the care of this patient. Please refer to my attending physician's documentation for any further recommendations. History of Present Illness Attending Physician: Maurizio Montana MD History of Present Illness Mr. 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 He recently underwent CT angiogram which showed occluded iliac of the left stenotic iliac on the right and occluded right common femoral artery. Today patient underwent an elective right common femoral artery endarterectomy with bovine patch and bilateral iliac stenting. He now presents to the ICU postop for further management at this time. On arrival to the ICU the patient is alert and oriented and without any acute distress. He is hard of hearing and has hearing aids to assist. He reports a small amount of pain at the surgical site. He currently denies any dizziness, headaches, changes in vision, shortness of breath or wheezing, cough, chest pain or palpitations, nausea vomiting or diarrhea, or abdominal pain. He denies any swelling in the feet. He does report some numbness and tingling in his lower extremities bilaterally which she states is his normal. Allergies Allergy/AdvReac Type Severity Reaction Status Date / Time codeine AdvReac Mild Anxiety Verified 05/26/22 10:56 symptoms hydrocodone AdvReac Mild Anxiety, Verified 05/26/22 10:56 insomnia Home Medications Medication Instructions Recorded Confirmed Type acetaminophen 500 mg tablet 1,000 mg PO BID 06/08/19 05/26/22 History (Acetaminophen Extra Strength) aspirin 81 mg tablet,delayed 81 mg PO QAM 06/08/19 05/26/22 History release carvedilol 12.5 mg tablet 12.5 mg PO BID 06/08/19 05/26/22 History clopidogrel 75 mg tablet 75 mg PO QAM 06/08/19 05/26/22 History cyanocobalamin (vitamin B-12) 1,000 mcg PO QAM 06/08/19 05/26/22 History 1,000 mcg tablet (Vitamin B-12) fluticasone fur. 100 mcg-umeclid 1 inh inhalation QAM 06/08/19 05/26/22 History 62.5 mcg-vilant 25 mcg inhalat.powder (Trelegy Ellipta) levothyroxine 25 mcg tablet 25 mcg PO QAM 06/08/19 05/26/22 History losartan 25 mg tablet 25 mg PO QPM 06/08/19 05/26/22 History metformin 500 mg tablet 500 mg PO BID 06/08/19 05/26/22 History multivitamin 1 tab PO QAM 06/08/19 05/26/22 History nitroglycerin 0.4 mg sublingual 0.4 mg sublingual UD 06/08/19 05/26/22 History tablet (Nitrostat) pantoprazole 40 mg tablet,delayed 40 mg PO QAM 06/08/19 05/26/22 History release potassium chloride 10 mEq 10 meq PO QAM 06/08/19 05/26/22 History capsule,extended release rosuvastatin 20 mg tablet 40 mg PO QPM 06/08/19 05/26/22 History magnesium oxide 500 mg tablet 500 mg PO QAM 04/28/22 05/26/22 History pregabalin 75 mg capsule (Lyrica) 75 mg PO BID 04/28/22 05/26/22 History torsemide 20 mg tablet 20 mg PO QAM 04/28/22 05/26/22 History Patient History Medical History (Updated 05/26/22 @ 20:44 by MICK Mccray) Aortic stenosis s/p TAVR BPH (benign prostatic hyperplasia) CAD (coronary artery disease) CABG x 4 (2000) Stent x1 (2006) Cath (2011) - SVG to 1st diagonal 100% occluded, other grafts patent Carotid artery disease s/p Left CEA (2011), right (2012) Diabetes mellitus Dyslipidemia GERD (gastroesophageal reflux disease) HTN (hypertension) Hypothyroidism Obesity ERINN (obstructive sleep apnea) CPAP with O2 3.5L HS Surgical History Amputated finger H/O repair of right rotator cuff History of anesthesia reaction Slow to wake History of cardiac cath Stent x1 (2006) History of CEA (carotid endarterectomy) Left - 2012 Right - 2013 History of cholecystectomy History of colonoscopy History of coronary artery bypass graft CABG x4 (2000) History of heart valve replacement AVR [facility] after 2006 Hx of cataract surgery S/P laminectomy with spinal fusion Back surgeries x2 S/P TURP Family History Brother Diabetes Coronary heart disease, Onset Age: 60 Brother Coronary heart disease, Onset Age: 50 Diabetes Mother Diabetes Social History Smoking Status: Former smoker packs per day: 4; Years Smoked: 25; Smoking End Date: QUIT 40 YRS AGO; Second Hand Exposure: No; Do You Dip or Chew Tobacco: No; Hx Alcohol Use: No (limited occasions) Hx Substance Use: No Preferred Language: Welsh Communication Ability: Effective Stone Layer Required: No Beliefs That Will Affect Care: None marital status: Current Living Situation: Spouse current occupational status: retired Other Information That Helps Us Care for You: No Feels Safe at Home: Yes Safety Concerns: Feels Safe At This Time Assistive Devices: Cane, CPAP, Denture - Upper, Denture - Lower, Glasses, Hearing Aid - Bilateral and Oxygen - Continuous Review of Systems Review of Systems: All systems reviewed & are unremarkable except as noted in HPI & below Physical Exam Constitutional: cooperative and comfortable Eyes: PERRL, conjunctivae normal, anicteric sclerae ENMT: external ear and nose normal, oropharynx normal Neck: trachea midline, no thyromegaly Respiratory: normal respiratory effort, lungs clear to auscultation Cardiovascular: RRR, no murmur, no edema Heart Sounds: normal S1 and normal S2 Vessels: no JVD Gastrointestinal (Abdomen): normal bowel sounds, soft, nontender, no hepatosplenomegaly Musculoskeletal: no cyanosis or clubbing, extremities motor strength 5/5 Skin: no rashes, warm and dry Neurologic: PERRL, EOMI, accommodation nl, no face palsy, no dysarthria Psychiatric: A+Ox3, euthymic affect Results & Data Results & Data ([facility]) Vital Signs (Past 12 Hours) Vital Signs Temp Pulse Pulse Resp BP BP BP 05/26/22 19:25 36.7 C 91 H 17 148/75 H 05/26/22 19:10 36.7 C 92 H 17 156/65 H 148/75 H 05/26/22 18:30 86 17 148/60 H 145/74 H 05/26/22 18:15 86 18 150/68 H 05/26/22 18:00 87 17 155/61 H 05/26/22 17:45 84 18 153/73 H 164/63 H 05/26/22 17:35 83 20 149/74 H 05/26/22 17:25 84 19 152/73 H 05/26/22 17:05 87 17 158/63 H 05/26/22 17:15 85 17 163/64 H 05/26/22 16:55 89 18 166/64 H 05/26/22 16:46 36.7 C 98 H 21 179/84 H 05/26/22 11:03 36.7 C 69 20 165/69 H 135/64 05/26/22 11:03 Pulse Ox O2 Del Method O2 Flow Rate 05/26/22 19:25 95 Nasal Cannula 2 05/26/22 19:10 95 Nasal Cannula 2 05/26/22 18:30 95 Nasal Cannula 2 05/26/22 18:15 95 Nasal Cannula 2 05/26/22 18:00 95 Nasal Cannula 2 05/26/22 17:45 96 Nasal Cannula 2 05/26/22 17:35 95 Nasal Cannula 2 05/26/22 17:25 95 Nasal Cannula 2 05/26/22 17:05 94 Nasal Cannula 2 05/26/22 17:15 95 Nasal Cannula 2 05/26/22 16:55 93 Nasal Cannula 2 05/26/22 16:46 95 Nasal Cannula 2 05/26/22 11:03 93 Room Air 05/26/22 11:03 Room Air Coding Level of Care Code 83570 Inpt Consult Level 3 Diagnoses Rest pain of both lower extremities due to atherosclerosis I70.223 Carotid artery stenosis I65.29 CAD (coronary artery disease) I25.10 GERD (gastroesophageal reflux disease) K21.9 Dyslipidemia E78.5 HTN (hypertension) I10 Diabetes mellitus E11.9 Diabetes mellitus complication status: without complication Diabetes mellitus superintendent container terminal insulin use: without shelter use Diabetes mellitus type: type 2 Hypothyroidism E03.9 Aortic stenosis, moderate I35.0 History of CEA (carotid endarterectomy) Z98.890 COPD (chronic obstructive pulmonary disease) J44.9 (1) Diabetes mellitus Diabetes mellitus complication status: without complication Diabetes mellitus shelter insulin use: without shelter use Diabetes mellitus type: type 2 Qualified Code(s): E11.9 - Type 2 diabetes mellitus without complications
[2022-05-26] MEDS: D5W AND 1/2NSS 1,000 ML IV SCH (20:27)
[2022-05-26] MEDS: ceFAZolin 2000MG 2,000 MG/15 ML SYR IV SCH (20:27)
[2022-05-26] MEDS: carvediloL 12.5 MG TAB PO SCH (20:33)
[2022-05-26] MEDS: ACETAMINOPHEN 500 MG TAB PO SCH (20:33)
[2022-05-26] MEDS: PREGABALIN 75 MG CAP PO SCH (20:38)
[2022-05-26] MEDS: INSULIN ASPART PER UNIT SC SCH (20:38)
[2022-05-26] MEDS ORDERED: LOSARTAN POTASSIUM 25 MG TAB PO SCH (21:00)
[2022-05-26] MEDS ORDERED: ROSUVASTATIN CALCIUM 20 MG TAB PO SCH (21:00)
[2022-05-27] MEDS: INSULIN ASPART PER UNIT SC SCH ×3 (01:45→08:12)
[2022-05-27] MEDS: ceFAZolin 2000MG 2,000 MG/15 ML SYR IV SCH (03:32)
[2022-05-27] MEDS: D5W AND 1/2NSS 1,000 ML IV SCH (05:01)
[2022-05-27 06:01] LABS: Basophils # (auto) 0.01 K/uL (0-0.2); Basophils % (auto) 0.2 %; Hemoglobin 9.5 g/dl (14.0-18.0); Immature Granulocytes # (auto) 0.03 K/uL (0.00-0.02); Immature Granulocytes % (auto) 0.5 %; Lymphocytes # (auto) 1.15 K/uL (1.2-3.4); Lymphocytes % (auto) 17.5 %; Mean Corpuscular Hemoglobin 29.3 pg (25.0-34.0); Mean Corpuscular Hgb Conc 32.8 g/dL (32.0-36.0); Mean Corpuscular Volume 89.5 fL (80.0-100.0); Mean Platelet Volume 9.3 fL (9.4-12.4); Monocytes # (auto) 0.53 K/uL (0.24-0.82); Neutrophils # (auto) 4.87 K/uL (1.4-6.5); Neutrophils % (auto) 73.8 %; Platelet Count 129 K/uL (130-400); RDW Coefficient of Variation 16.8 % (11.5-14.5); RDW Standard Deviation 54.6 fL (36.4-46.3); Red Blood Count 3.24 M/uL (4.63-6.08); White Blood Count 6.59 K/ul (4.8-10.8)
[2022-05-27 06:30] LABS: BUN Creatinine Ratio 23.2 (10-20); Calcium 8.9 mg/dl (8.5-10.1); Creatinine Clr Calc Pharmacy 79.6 ml/min; Est GFR (African American) 100.3 ml/min; Est GFR (Non-African American) 86.6 ml/min; Potassium 4.2 mmol/L (3.5-5.1)
[2022-05-27] MEDS ORDERED: DEXTROSE 50% 50 ML SYRINGE IV PRN (07:15)
[2022-05-27] MEDS ORDERED: GLUCOSE 40% GEL 15 GM TUBE PO PRN (07:15)
[2022-05-27] MEDS ORDERED: CARBOHYDRATES FOR HYPOGLYCEMIA PO PRN (07:15)
[2022-05-27] MEDS ORDERED: GLUCAGON FOR INJ 1 MG VIAL IM PRN (07:15)
[2022-05-27] MEDS ORDERED: GLUCOSE 10 TAB/TUBE PO PRN (07:15)
[2022-05-27] MEDS: ACETAMINOPHEN 500 MG TAB PO SCH (08:19)
[2022-05-27] MEDS: carvediloL 12.5 MG TAB PO SCH (08:19)
[2022-05-27] MEDS ORDERED: NON-FORMULARY MEDICATION (Fluticasone-Umeclidin-Vilanter [Trelegy Ellipta] 100-62.5-25 mcg INH SCH (09:00)
[2022-05-27] MEDS ORDERED: LEVOTHYROXINE SODIUM 25 MCG TABLET PO SCH (09:00)
[2022-05-27] MEDS ORDERED: CLOPIDOGREL BISULFATE 75 MG TAB PO SCH (09:00)
[2022-05-27] MEDS ORDERED: POTASSIUM CHLORIDE 10 MEQ TABCR PO SCH (09:00)
[2022-05-27] MEDS ORDERED: MULTIVITAMIN TAB PO SCH (09:00)
[2022-05-27] MEDS ORDERED: FLUTICASONE FUROATE 100MCG 14 PUFFS/INHALER INH SCH (09:00)
[2022-05-27] MEDS ORDERED: UMECLIDINIUM/VILANTEROL 62.5/25MCG 7 PUFFS/INHALER INH SCH (09:00)
[2022-05-27] MEDS ORDERED: MAGNESIUM OXIDE 400 MG TAB PO SCH (09:00)
[2022-05-27] MEDS ORDERED: CYANOCOBALAMIN (B-12) 500 MCG TABLET PO SCH (09:00)
[2022-05-27] MEDS ORDERED: PANTOprazole 40 MG TAB PO SCH (09:00)
[2022-05-27] MEDS ORDERED: ASPIRIN 81 MG ECTAB PO SCH (09:00)
[2022-05-27] MEDS ORDERED: TORSEMIDE 20 MG TAB PO SCH (09:00)
[2022-05-27] MEDS: PREGABALIN 75 MG CAP PO SCH (09:12)
--- NOTE | 2022-05-27 09:13 | Critical Care Progress Note ---
Date of Service May 27, 2022 Assessment & Plan (1) CAD (coronary artery disease): Plan: 86-year-old man presenting to the ICU for postoperative monitoring status post elective right femoral endarterectomy with bilateral iliac stenting. Now awaiting downgrade from ICU. Cardiac PAD: Now status post bilateral iliac stenting, right femoral enterectomy. * Defer management to surgical team * Aspirin, Plavix * Appears ready for downgrade from ICU Hypertension: Continue home meds (Coreg, losartan) Respiratory COPD * Continue Trelegy Ellipta. As needed nebs GI GERD * PPI * Regular diet Renal * Replete electrolytes as needed Endo * ICU hyperglycemic protocol * Continue Synthroid Please refer to Dr. López's documentation for further recommendations, clarifications. (2) GERD (gastroesophageal reflux disease): (3) BPH (benign prostatic hyperplasia): (4) Dyslipidemia: (5) ERINN (obstructive sleep apnea): (6) HTN (hypertension): (7) Diabetes mellitus: (8) Peripheral artery disease: Admission and Anticipated Discharge Date Admission Date: May 26, 2022 Supervising Physician Co-Signing Physician Notes Dr. Smith was resident physician during care of patient. I separately evaluated patient for lombardi portions of the history and the exam. I was present during the critical portion of medical decision making, and I discussed the case with the resident. I generally agree with the findings and plan. No overnight events, tolerating diet at this time. Critical care will sign off. Subjective No acute events overnight. This morning, patient seen walking multiple laps around ICU unit. He has no subjective complaints. Review of Systems Review of Systems: All systems reviewed & are unremarkable except as noted in HPI & below Physical Exam Physical Exam: General: No acute distress HEENT: PERRLA. Normal conjunctiva, anicteric sclera. Oropharynx normal. Respiratory: Normal respiratory effort, CTA BL. Cardiovascular: RRR without murmurs, gallops, or rubs. No edema. GI: Soft abdomen with normal bowel sounds heard on auscultation. Nontender x4 quadrants Neuro: Alert and oriented x3. Results & Data Results & Data ([facility]) Vital Signs (Past 12 Hours) Vital Signs Pulse Resp BP Pulse Ox O2 Del Method O2 Flow Rate 05/27/22 04:00 68 15 97 05/27/22 04:00 124/62 05/27/22 03:00 66 16 98 05/27/22 03:00 121/58 L 05/27/22 02:00 68 17 98 05/27/22 02:00 120/61 05/27/22 01:00 72 20 95 05/27/22 01:00 109/59 L 05/27/22 00:00 73 24 93 05/27/22 00:00 109/57 L 05/26/22 23:00 79 18 95 05/26/22 23:00 118/63 05/26/22 22:00 81 16 94 05/26/22 22:00 135/66 05/26/22 21:00 85 15 96 05/26/22 21:00 144/69 H 05/26/22 20:01 90 18 97 05/26/22 20:01 153/78 H 05/26/22 20:00 93 H 14 95 05/26/22 21:35 Nasal Cannula, CPAP 2 Resident Activity Tracking Resident Involvement: Resident Care Provided Care Provided: Adult Hospital Medicine (1) Diabetes mellitus Diabetes mellitus complication status: without complication Diabetes mellitus skilled nursing insulin use: without assistant 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
--- NOTE | 2022-05-27 09:13 | Billing Data ---
Date of Service May 27, 2022 Coding Level of Care Code 78886 Subseq Hosp Care Lvl 1
[2022-05-27] MEDS ORDERED: Nursing to Pharmacy Communication SCH (10:30)
[2022-05-27] MEDS ORDERED: NovoLIN-N (NPH) PER UNIT CHARGE SQ ONE (11:15)
[2022-05-27] MEDS ORDERED: INSULIN ASPART PER UNIT SC SCH (11:30)
--- NOTE | 2022-05-27 13:26 | Surgery Progress Note ---
Date of Service May 27, 2022 Assessment & Plan Admission and Anticipated Discharge Date Admission Date: May 26, 2022 Subjective No complaints of pain. Claims his legs feel better. Did two laps around unit with no pain in legs like he had pre op. Physical Exam Constitutional: WD/WN, vitals as above Respiratory: normal respiratory effort; no respiratory distress Cardiovascular: Rate/Rhythm: regular rate and regular rhythm Vessels: posterior tibial pulses present (excellent to doppler bilat) Extremities: normal capillary refill Skin: + incision (pervena dressing intact) Psychiatric: Orientation: alert and oriented x 3 Results & Data ([facility]) Vital Signs (Past 12 Hours) Vital Signs Pulse Resp BP Pulse Ox O2 Del Method 05/27/22 13:00 79 22 05/27/22 12:00 81 22 127/77 05/27/22 11:00 79 14 05/27/22 10:00 68 15 05/27/22 09:00 78 17 05/27/22 08:00 75 15 138/77 05/27/22 07:00 71 15 05/27/22 06:06 76 17 05/27/22 05:00 66 14 90 05/27/22 08:00 Room Air 05/27/22 08:00 72 05/27/22 04:00 68 15 97 05/27/22 04:00 124/62 05/27/22 03:00 66 16 98 05/27/22 03:00 121/58 L 05/27/22 02:00 68 17 98 05/27/22 02:00 120/61
--- NOTE | 2022-05-28 11:27 | Discharge Summary ---
Date of Service May 28, 2022 Admission HPI Per Admitting Provider I the pleasure of seeing Jewel today for evaluation of his lower extremities. As you know he is an 86-year-old gentleman who in the past and had bilateral carotid endarterectomies. Within the last year he has developed discomfort in both lower extremities. He claims it is gotten to a point where he cannot rest comfortably at night. He does complain of bilateral numbness in the lower extremities which actually gets worse when walking. He cannot walk without discomfort except for short distances. He denies any ulcerations of his lower extremities. His CT angio of his abdomen and pelvis showed significant o cclusive disease of the bilateral common iliac artery origins as well as the right common femoral artery. He recently had a CT angiogram of his carotids which shows 70% stenosis of the right internal carotid artery and less than 50% of the left. These are apparently restenotic lesions. He is asymptomatic from carotid disease. Admission Exam Per Admitting Provider Physical exam the patient is awake alert and oriented x3. He is in no apparent distress. His blood pressure is 122/60 on the left and 112/58 on the right. Radials carotids and superficial temporal arteries are +2 bilaterally. Lungs are clear to auscultation. Heart had a regular rate and rhythm. Abdominal exam is benign. I cannot appreciate any abnormal dilatation of the aorta. Femoral pulses are +1 bilaterally. I cannot palpate any pulses below. Capillary refill is slightly decreased in both lower extremities. Neurologic exam is intact to motor and sensory function. Principal Diagnosis 1. s/p R common femoral endarterectomy with bovine patch and BL common iliac stent placement 2. Severe PAD and aortoiliac stenosis Discharge Exam Constitutional WD/WN, vitals as above Respiratory normal respiratory effort; no respiratory distress Cardiovascular Rate/Rhythm: regular rate and regular rhythm Vessels: posterior tibial pulses present (excellent to doppler bilat) Extremities: normal capillary refill Skin + incision (pervena dressing intact) Psychiatric Orientation: alert and oriented x 3 Discharge Data Allergies Allergy/AdvReac Type Severity Reaction Status Date / Time codeine AdvReac Mild Anxiety Verified 05/26/22 10:56 symptoms hydrocodone AdvReac Mild Anxiety, Verified 05/26/22 10:56 insomnia Consultations 05/26/22 19:10 Consult Cdl Program Coordinator Routine Procedures Performed Operation Date: 05/26/22 13:20 Actual Procedures p Right Common Femoral Artery Endarterectomy,(Right) - Maurizio Montana MD s Bilateral Iliac Stents(Bilateral) - Maurizio Montana MD Ordered Studies 05/26/22 07:28 EV angio LE BI Routine Hospital Course (1) S/P vascular surgery: Pt is POD #1 after undergoing R common femoral endarterectomy with bovine patch and BL common iliac stenting. Doing well postop. 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 If foam looses suction or on next Tuesday may remove this dressing. Replace if any drainage. May shower after right groin dressing removed. SPECIAL CARE INSTRUCTIONS: Call your doctor if: * Temperature above 101 degrees * Pain not relieved by pain medicine ordered * There is increased drainage or redness from any incision * You have any unanswered questions or concerns. Call [phone] to schedule a follow up appointment if one not already scheduled. Pending Studies at Discharge: No Stand-Alone Forms: My [facility], Smoking Cessation Medications and DC Order Prescriptions: New oxycodone-acetaminophen [Percocet] 5-325 mg tablet 1 tab PO Q6H PRN (Reason: pain) Qty: 30 0RF Continued metformin 500 mg tablet 500 mg PO BID potassium chloride 10 mEq capsule, extended release 10 meq PO QAM carvedilol 12.5 mg tablet 12.5 mg PO BID clopidogrel 75 mg tablet 75 mg PO QAM aspirin 81 mg Tablet,Delayed Release (Dr/Ec) 81 mg PO QAM acetaminophen [Acetaminophen Extra Strength] 500 mg Tablet 1,000 mg PO BID levothyroxine 25 mcg tablet 25 mcg PO QAM pantoprazole 40 mg tablet,delayed release (DR/EC) 40 mg PO QAM losartan 25 mg tablet 25 mg PO QPM rosuvastatin 20 mg tablet 40 mg PO QPM Trelegy Ellipta 100-62.5-25 mcg blister with device 1 inh inhalation QAM multivitamin Tablet 1 tab PO QAM cyanocobalamin (vitamin B-12) [Vitamin B-12] 1,000 mcg Tablet 1,000 mcg PO QAM nitroglycerin [Nitrostat] 0.4 mg Tablet, Sublingual 0.4 mg sublingual UD torsemide 20 mg tablet 20 mg PO QAM pregabalin [Lyrica] 75 mg Capsule 75 mg PO BID magnesium oxide 500 mg Tablet 500 mg PO QAM Discharge Orders: Discharge Order (Routine); Ordered 05/27/22 Ordered By: Maurizio Montana Admission Data Admit Date/Time: 05/26/22 12:07 Attending Provider: Maurizio Montana Admit Provider: Maurizio Montana Primary Care Provider: Jae Anthony Other Providers: Cornell Sheehan ; Michi López Seth D. ; Paulo Rivas ; Abdifatah Brennan ; Jerardo Mendoza ; Bee Tomlin ; Talon Maddox ; Corina Schwartz ; Janes Lugo [facility] Other Interventions: Discharge Summary Assessment (RN) Last Done: 05/27/22 13:43
== END 2022-05-27 14:10 | disposition home health service (06) | DRG 253 ==
LOC: ASU 10:27 → 1E 12:07
DX: Z98.1 Arthrodesis status; I70.0 Atherosclerosis of aorta; J44.9 Chronic obstructive pulmonary disease, unspecified; Z79.890 Hormone replacement therapy; I25.10 Atherosclerotic heart disease of native coronary artery without angina pectoris; E11.51 Type 2 diabetes mellitus with diabetic peripheral angiopathy without gangrene; Z95.5 Presence of coronary angioplasty implant and graft; E03.9 Hypothyroidism, unspecified; I10 Essential (primary) hypertension; I74.5 Embolism and thrombosis of iliac artery; Z95.1 Presence of aortocoronary bypass graft; Z79.84 Long term (current) use of oral hypoglycemic drugs; Z87.891 Personal history of nicotine dependence; Z79.02 Long term (current) use of antithrombotics/antiplatelets; I70.8 Atherosclerosis of other arteries; Z79.82 Long term (current) use of aspirin; I70.221 Atherosclerosis of native arteries of extremities with rest pain, right leg; Z95.2 Presence of prosthetic heart valve

== ENCOUNTER 2022-12-29 12:00 | Inpatient (IN) ==
[2022-12-29] MEDS ORDERED: SODIUM CHLORIDE 0.9% 1000ML 1,000 ML IV SCH (12:15)
--- NOTE | 2022-12-29 12:41 | XRay Report ---
XR chest 1V portable CLINICAL HISTORY: neuro deficit, acute stroke suspected TECHNIQUE: Single frontal radiograph of the chest was obtained. Comparison: Comparison is made to chest radiograph 05/12/2022 FINDINGS: Median sternotomy wires are unchanged. Cardiomegaly is noted. The lungs are clear. No evidence of ple ural effusion or pneumothorax. IMPRESSION: No acute chest disease. Cardiomegaly is noted. ACT 112: Negative or not required by law. Electronically signed by: Warren Latham M.D. 12/29/2022 12:39 PM
--- NOTE | 2022-12-29 13:01 | Emergency Department Note ---
Impression & Plan Acute CVA (cerebrovascular accident), Hypomagnesemia ED Provider Note ED Provider Note NAME: JOSELIN SCOTT AGE:87 SEX: Male : 1935 ARRIVES VIA: EMS INFORMANT: Patient, EMS ED PROVIDER(s): Jolanta Zuniga DO CHIEF COMPLAINT: Weakness HPI: This is an 87-year-old male presents via EMS due to concern for weakness. Patient's family reported to EMS on scene the patient began noticing weakness worse on the left than the right Tuesday evening. He did not wish to come to the emergency room at that time. He waited over the last 3 days and his symptoms were not improving he finally decided he should be evaluated. No prior history of a stroke. Patient states he does have chronic headaches, neck pain, and abdominal pain that are unchanged. He denies any recent fevers, chills, or illness. Patient denies any recent change in medications. He denies any trauma or injury. PAST MEDICAL HISTORY:See Below PAST SURGICAL HISTORY:See Below FAMILY HISTORY:See Below SOCIAL HISTORY:See Below HOME MEDICATIONS:See Below ALLERGIES:See Below VITALS:See Below PHYSICAL EXAMINATION: GENERAL: alert, well appearing, well nourished, no distress, non-toxicm, BILL [employer]'S SLOUGH EYE EXAM: normal conjunctiva, PERRL and EOM's grossly intact, no nystagmus, no gaze deviation OROPHARYNX: no exudate, no erythema, lips, buccal mucosa, and tongue normal and mucous membranes are dry NECK: supple, no nuchal rigidity, no adenopathy, non-tender LUNGS: Clear to auscultation. Normal chest wall mechanics, no w/r/r HEART: no murmurs, S1 normal and S2 normal ABDOMEN: abdomen soft, non-tender, normo-active bowel sounds, no masses, no rebound or guarding. BACK: Back is symmetrical on inspection and there is no deformity, no midline tenderness, no CVA tenderness. SKIN: no rashes, petechiae, orbruising UPPER EXTREMITIES: upper extremities are grossly normal. nml pulses b/l. No evidence of trauma or deformity LOWER EXTREMITIES: No pitting edema.nml pulses b/l. No evidence of trauma or deformity. NEURO EXAM: Normal sensorium, cranial nerves II-XII grossly intact, normal speech, no facial droop,decreased strength noted in the left upper extremity and left lower extremity with ataxia and drift towards the bed, gross sensation intact. NIHSS 4 Vital Signs: reviewed and remarkable Differential Diagnosis: Differential Diagnosis includes but is not limited to ischemic Stroke, hemorrhagic stroke, bells palsy, mass, neoplasm, migraine headache, seizure, subarachnoid hemorrhage, TIA, and transient global amnesia. MEDICAL DECISION MAKING: This is an 87-year-old male presents emergency department due to concern for left-sided weakness for the last 4 to 5 days. Patient afebrile and vital signs stable on arrival. Patient difficult obtaining a history from. IV established, labs drawn and sent, EKG and chest were performed at bedside and interpreted by me and patient placed on telemetry. Patient sent for CT/CTA given asymmetry of weakness and concern for stroke. Patient found to have a subacute stroke. Due to the time of onset several days ago he is outside the window for any normal lytic agent or acute intervention. Patient given aspirin while in the emergency room and case discussed with hospitalist for additional evaluation and management. Family updated on all results additionally and verbalized understanding. Patient given gentle IV fluid rehydration as well as IV magnesium repletion. Consultation(s): [] ER Treatment Provided: See below 1440: Family at bedside and updated on results. They state they noticed Tuesday morning that patient was very off balance which was new for him. He has had decreased appetite and increased nausea since Tuesday. He had difficulty ambulating where before he could ambulate independently with a cane. Diagnostics Interpreted By Me: -ECG: Normal sinus at 68, first-degree AV block, leftward axis, normal QRS and QTc, nonspecific ST/T wave changes, baseline artifact noted -Cardiac Monitoring: An order was placed for continuous cardiac monitoring. The monitor shows a rate of 68 with normal sinus rhythm. -Laboratory studies: As stated above and show below. -Imaging studies: X-ray Chest: A single view study of the chest was reviewed and was negative for cardiomegaly, focal infiltrate, effusion, pulmonary edema, or wide mediastinum. Triage Nursing Note Reviewed Prior/Outside Records Reviewed -prior cardiology note Past Med/Surg History Medical History Aortic stenosis s/p TAVR BPH (benign prostatic hyperplasia) CAD (coronary artery disease) CABG x 4 (2000) Stent x1 (2006) Cath (2011) - SVG to 1st diagonal 100% occluded, other grafts patent Carotid artery disease s/p Left CEA (2011), right (2012) Carotid artery stenosis Diabetes mellitus Dyslipidemia GERD (gastroesophageal reflux disease) HTN (hypertension) Hypothyroidism Obesity ERINN (obstructive sleep apnea) CPAP with O2 3.5L HS Rest pain of both lower extremities due to atherosclerosis Surgical History Amputated finger H/O repair of right rotator cuff H/O vascular surgery (05/26/22) Right Common Femoral Artery Endarterectomy,(Right) with bovine patch - Maurizio Montana MD sBilateral Iliac Stents(Bilateral) - Maurizio Montana MD History of anesthesia reaction Slow to wake History of cardiac cath Stent x1 (2006) History of CEA (carotid endarterectomy) Left - 2011 Right - 2013 History of cholecystectomy History of colonoscopy History of coronary artery bypass graft CABG x4 (2000) History of heart valve replacement AVR [facility] after 2006 Hx of cataract surgery S/P laminectomy with spinal fusion Back surgeries x2 S/P TURP Family History Brother Diabetes Coronary heart disease, Onset Age: 60 Brother Coronary heart disease, Onset Age: 50 Diabetes Mother Diabetes Social History Smoking Status: Former smoker packs per day: 4; Second Hand Exposure: No; Do You Dip or Chew Tobacco: No; Tobacco Cessation Education Requested by Patient: No Hx Alcohol Use: Yes Alcohol type: beer Hx Substance Use: No Preferred Language: Romanian Communication Ability: Effective Mercury Cracking Tester Required: No Beliefs That Will Affect Care: None marital status: Current Living Situation: Spouse and Family current occupational status: retired Other Information That Helps Us Care for You: No Feels Safe at Home: Yes Safety Concerns: Feels Safe At This Time Assistive Devices: Bedside Commode, Cane and Walker Allergies Allergies Allergy/AdvReac Type Severity Reaction Status Date / Time codeine AdvReac Mild Anxiety Verified 05/26/22 10:56 symptoms hydrocodone AdvReac Mild Anxiety, Verified 05/26/22 10:56 insomnia Home Meds Home Medications Medication Instructions Recorded Confirmed acetaminophen 500 mg tablet 1,000 mg PO BID 06/08/19 12/29/22 (Acetaminophen Extra Strength) aspirin 81 mg tablet,delayed 81 mg PO QAM 06/08/19 12/29/22 release carvedilol 12.5 mg tablet 12.5 mg PO BID 06/08/19 12/29/22 clopidogrel 75 mg tablet 75 mg PO QAM 06/08/19 12/29/22 cyanocobalamin (vitamin B-12) 1,000 mcg PO QAM 06/08/19 12/29/22 1,000 mcg tablet (Vitamin B-12) fluticasone fur. 100 mcg-umeclid 1 inh inhalation QAM 06/08/19 12/29/22 62.5 mcg-vilant 25 mcg inhalat.powder (Trelegy Ellipta) levothyroxine 25 mcg tablet 25 mcg PO QAM 06/08/19 12/29/22 metformin 500 mg tablet 1,000 mg PO BID 06/08/19 12/29/22 multivitamin 1 tab PO QAM 06/08/19 12/29/22 nitroglycerin 0.4 mg sublingual 0.4 mg sublingual UD 06/08/19 12/29/22 tablet (Nitrostat) pantoprazole 40 mg tablet,delayed 40 mg PO QAM 06/08/19 12/29/22 release potassium chloride 10 mEq 10 meq PO QAM 06/08/19 12/29/22 capsule,extended release rosuvastatin 20 mg tablet 40 mg PO QPM 06/08/19 12/29/22 magnesium oxide 500 mg tablet 500 mg PO QAM 04/28/22 12/29/22 pregabalin 75 mg capsule (Lyrica) 75 mg PO BID 04/28/22 12/29/22 torsemide 20 mg tablet 20 mg PO QAM 04/28/22 12/29/22 tramadol 50 mg tablet 50 mg PO HS PRN Pain 12/29/22 12/29/22 Results & Data (ED) Vital Signs Vital Signs - 24 hr 12/29/22 12:09 12/29/22 12:10 12/29/22 12:10 Temperature 36.9 C Temperature Source Oral Pulse Rate 70 67 Pulse Rate from SpO2 Sensor Pulse Rhythm Regular Pulse Strength Normal Respiratory Rate 18 Respiratory Effort / Characteristics Non-Labored Respiratory Depth Normal Respiratory Pattern Regular Blood Pressure 173/78 H Blood Pressure Mean 109 Blood Pressure Position Lying Pulse Oximetry 97 89 L Oxygen Delivery Method Nasal Cannula Nasal Cannula Oxygen Flow Rate 3 0 Sepsis Recent Fever Within 48 Hours No Sepsis New/Unexplained Change in Mental Status N/A Sepsis Action Taken by Nursing No Action Required Oxygen Flow Rate - Titration 3 Pulse Oximetry Post Tiitration 97 12/29/22 13:00 Temperature Temperature Source Pulse Rate 64 Pulse Rate from SpO2 Sensor 64 Pulse Rhythm Pulse Strength Respiratory Rate 19 Respiratory Effort / Characteristics Respiratory Depth Respiratory Pattern Blood Pressure 159/77 H Blood Pressure Mean 104 Blood Pressure Position Pulse Oximetry 98 Oxygen Delivery Method Nasal Cannula Oxygen Flow Rate 2 Sepsis Recent Fever Within 48 Hours Sepsis New/Unexplained Change in Mental Status Sepsis Action Taken by Nursing Oxygen Flow Rate - Titration Pulse Oximetry Post Tiitration Laboratory Data 12/29/22 12:05 12/29/22 12:05 Lab Results 12/29/22 12/29/22 12/29/22 Range/Units 12:05 12:05 12:05 WBC 7.62 (4.8-10.8) K/ul RBC 4.82 (4.70-6.10) M/uL Hgb 14.0 (14.0-18.0) g/dl Hct 41.8 L (42.0-52.0) % MCV 86.7 (80.0-100.0) fL MCH 29.0 (25.0-34.0) pg MCHC 33.5 (32.0-36.0) g/dL RDW Std Deviation 55.8 H (36.4-46.3) fL RDW Coeff of Maryan 17.7 H (11.5-14.5) % Plt Count 154 (130-400) K/uL MPV 9.6 (9.4-12.4) fL Immature Gran % (Auto) 0.8 % Neut % (Auto) 67.5 % Lymph % (Auto) 22.0 % [place] % (Auto) 9.1 % Eos % (Auto) 0.3 % Baso % (Auto) 0.3 % Neut # (Auto) 5.15 (1.40-6.50) K/uL Lymph # (Auto) 1.68 (1.2-3.4) K/uL [place] # (Auto) 0.69 H (0.11-0.59) K/uL Eos # (Auto) 0.02 (0-0.50) K/uL Baso # (Auto) 0.02 (0-0.2) K/uL Immature Gran # (Auto) 0.06 (0.01-0.20) K/uL PT 11.5 (9.0-12.0) Seconds INR 1.1 (0.9-1.1) APTT 27.9 (21.0-31.0) Seconds PTT Ratio 1.0 Sodium 139 (136-145) mmol/L Potassium 3.5 (3.5-5.1) mmol/L Chloride 99 (98-107) mmol/L Carbon Dioxide 30 (21-32) mmol/L Anion Gap 10 (3-11) BUN 26 H (6-23) mg/dl Creatinine 0.91 (0.6-1.4) mg/dl Est Cr Clr Drug Dosing 58.5 ml/min Est GFR ( Amer) 88.1 ml/min Est GFR (Non-Af Amer) 76.0 ml/min BUN/Creatinine Ratio 28.6 H (10-20) Glucose 156 H (70-99(Fasting)) mg/dl POC Glucose (70-99) mg/dl Calcium 9.6 (8.6-10.3) mg/dl Magnesium 1.6 L (1.7-2.4) mg/dl Total Bilirubin 0.6 (0.2-1.0) mg/dl AST 24 (13-39) U/L ALT 24 (7-52) U/L Alkaline Phosphatase 46 (34-104) U/L Troponin I High Sens 6.8 (0-20) pg/ml Total Protein 7.3 (6.0-8.3) gm/dl Albumin 4.3 (3.4-5.0) gm/dl Globulin 3.0 (2.5-4.0) gm/dl Albumin/Globulin Ratio 1.4 (0.9-2) 12/29/22 Range/Units 12:17 WBC (4.8-10.8) K/ul RBC (4.70-6.10) M/uL Hgb (14.0-18.0) g/dl Hct (42.0-52.0) % MCV (80.0-100.0) fL MCH (25.0-34.0) pg MCHC (32.0-36.0) g/dL RDW Std Deviation (36.4-46.3) fL RDW Coeff of Maryan (11.5-14.5) % Plt Count (130-400) K/uL MPV (9.4-12.4) fL Immature Gran % (Auto) % Neut % (Auto) % Lymph % (Auto) % [place] % (Auto) % Eos % (Auto) % Baso % (Auto) % Neut # (Auto) (1.40-6.50) K/uL Lymph # (Auto) (1.2-3.4) K/uL [place] # (Auto) (0.11-0.59) K/uL Eos # (Auto) (0-0.50) K/uL Baso # (Auto) (0-0.2) K/uL Immature Gran # (Auto) (0.01-0.20) K/uL PT (9.0-12.0) Seconds INR (0.9-1.1) APTT (21.0-31.0) Seconds PTT Ratio Sodium (136-145) mmol/L Potassium (3.5-5.1) mmol/L Chloride (98-107) mmol/L Carbon Dioxide (21-32) mmol/L Anion Gap (3-11) BUN (6-23) mg/dl Creatinine (0.6-1.4) mg/dl Est Cr Clr Drug Dosing ml/min Est GFR ( Amer) ml/min Est GFR (Non-Af Amer) ml/min BUN/Creatinine Ratio (10-20) Glucose (70-99(Fasting)) mg/dl POC Glucose 155 H (70-99) mg/dl Calcium (8.6-10.3) mg/dl Magnesium (1.7-2.4) mg/dl Total Bilirubin (0.2-1.0) mg/dl AST (13-39) U/L ALT (7-52) U/L Alkaline Phosphatase (34-104) U/L Troponin I High Sens (0-20) pg/ml Total Protein (6.0-8.3) gm/dl Albumin (3.4-5.0) gm/dl Globulin (2.5-4.0) gm/dl Albumin/Globulin Ratio (0.9-2) Administered Medications Acetaminophen (Acetaminophen 500 Mg Tab) 1,000 mg PO BID [facility] Stop: 01/28/23 20:59 Last Admin: 12/30/22 20:55 Dose: 1,000 mg Documented By: Admin: 12/30/22 09:03 Dose: 1,000 mg Documented By: Admin: 12/29/22 21:27 Dose: 1,000 mg Documented By: PRACHI Aspirin (Aspirin 81 Mg Ectab) [facility] Stop: 01/29/23 08:59 Last Admin: 12/30/22 09:03 Dose: 81 mg Documented By: ELI Carvedilol (Carvedilol 12.5 Mg Tab) 12.5 mg PO BID [facility] Stop: 01/28/23 20:59 Last Admin: 12/30/22 20:55 Dose: 12.5 mg Documented By: Admin: 12/30/22 09:03 Dose: 12.5 mg Documented By: Admin: 12/29/22 21:27 Dose: 12.5 mg Documented By: PRACHI Clopidogrel Bisulfate (Clopidogrel Bisulfate 75 Mg Tab) 75 mg PO QAM [facility] Stop: 01/29/23 08:59 Last Admin: 12/30/22 09:03 Dose: 75 mg Documented By: ELI Cyanocobalamin (Cyanocobalamin (B-12) 500 Mcg Tablet) 1,000 mcg PO QAM [facility] Stop: 01/29/23 08:59 Last Admin: 12/30/22 09:02 Dose: 1,000 mcg Documented By: ELI Fluticasone Furoate (Fluticasone Furoate 100mcg 14 Puffs/Inhaler) 1 puffs INH DAILY [facility] Stop: 01/29/23 08:59 Last Admin: 12/30/22 09:02 Dose: 1 puffs Documented By: ELI Heparin Sodium (Porcine) (Heparin Sod 5,000 Unit/0.5 Ml Vial) 5,000 units SQ Q12 [facility] Stop: 01/29/23 20:59 Last Admin: 12/30/22 20:56 Dose: 5,000 units Documented By: TESS Insulin Aspart (Insulin Aspart Per Unit Charge) 0 units SC ACHS [facility] Stop: 01/28/23 19:13 Last Admin: 12/30/22 21:31 Dose: 1 units Documented By: TESS Co-signed By: SAIRA Admin: 12/30/22 17:27 Dose: 2 units Documented By: ELI Co-signed By: SHARMIN Admin: 12/30/22 12:16 Dose: 3 units Documented By: ELI Co-signed By: PARAMJIT Admin: 12/30/22 09:03 Dose: 2 units Documented By: ELI Co-signed By: HENRY Admin: 12/29/22 21:21 Dose: Not Given Documented By: Admin: 12/29/22 20:58 Dose: Not Given Documented By: PRACHI Insulin Glargine (Lantus Per Unit Charge) 0 units SQ BID [facility] Stop: 01/28/23 20:59 Last Admin: 12/30/22 21:31 Dose: 4 units Documented By: TESS Co-signed By: SAIRA Admin: 12/30/22 09:03 Dose: 4 units Documented By: ELI Co-signed By: HENRY Admin: 12/29/22 21:30 Dose: 4 units Documented By: PRACHI Co-signed By: LLP Levothyroxine Sodium (Levothyroxine Sodium 25 Mcg Tablet) [facility] Stop: 01/29/23 06:29 Last Admin: 12/30/22 05:36 Dose: 25 mcg Documented By: PRACHI Magnesium Oxide (Magnesium Oxide 400 Mg Tab) 400 mg PO [facility] Stop: 01/29/23 08:59 Last Admin: 12/30/22 09:02 Dose: 400 mg Documented By: ELI Multivitamins (Multivitamin Tab) [facility] Stop: 01/29/23 08:59 Last Admin: 12/30/22 09:02 Dose: 1 tab Documented By: ELI Ondansetron HCl (Ondansetron Inj 2 Mg/Ml 2 Ml Vial) 4 mg IV Q6H PRN PRN Reason: Nausea Stop: 01/28/23 19:13 Last Admin: 12/30/22 11:27 Dose: 4 mg Documented By: ELI Pantoprazole Sodium (Pantoprazole 40 Mg Tab) [facility] Stop: 01/29/23 08:59 Last Admin: 12/30/22 09:02 Dose: 40 mg Documented By: ELI Potassium Chloride (Potassium Chloride 10 Meq Tabcr) 10 meq [facility] Stop: 01/29/23 08:59 Last Admin: 12/30/22 09:02 Dose: 10 meq Documented By: ELI Pregabalin (Pregabalin 75 Mg Cap) 75 mg PO BID [facility] Stop: 01/28/23 20:59 Last Admin: 12/30/22 20:59 Dose: 75 mg Documented By: Admin: 12/30/22 09:01 Dose: 75 mg Documented By: Admin: 12/29/22 21:30 Dose: 75 mg Documented By: SB Rosuvastatin Calcium (Rosuvastatin Calcium 20 Mg Tab) 40 mg PO QPM [facility] Stop: 01/28/23 20:59 Last Admin: 12/30/22 20:55 Dose: 40 mg Documented By: Admin: 12/29/22 21:27 Dose: 40 mg Documented By: SB Torsemide (Torsemide 20 Mg Tab) 20 mg PO QAM [facility] Stop: 01/29/23 08:59 Last Admin: 12/30/22 09:04 Dose: 20 mg Documented By: ELI Umeclidinium/Vilanterol (Umeclidinium/Vilanterol 62.5/25mcg 7 Puffs/Inhaler) 1 puffs INH DAILY [facility] Stop: 01/29/23 08:59 Last Admin: 12/30/22 09:02 Dose: 1 puffs Documented By: ELI Discontinued Medications Aspirin (Aspirin 325 Mg Ectab) 325 mg PO NOW STA Stop: 12/29/22 14:44 Last Admin: 12/29/22 15:10 Dose: 325 mg Documented By: LATOSHA Gadobutrol (Gadobutrol 65ml Vial) 8.5 ml IV ONCE ONE Stop: 12/29/22 22:26 Last Admin: 12/29/22 22:25 Dose: 8.5 ml Documented By: LIGIA Sodium Chloride (Nss 1000ml) 1,000 mls @ 125 mls/hr IV .Q8H [facility] Stop: 01/28/23 12:14 Last Infusion: 12/30/22 09:36 Dose: 0 mls/hr Documented By: Admin: 12/29/22 12:19 Dose: 125 mls/hr Documented By: QGV Magnesium Sulfate/Dextrose (Magnesium Sulfate / D5w) 1 gm in 100 mls @ 100 mls/hr IV NOW STA Stop: 12/29/22 14:22 Last Infusion: 12/29/22 16:31 Dose: 0 mls/hr Documented By: Admin: 12/29/22 14:44 Dose: 100 mls/hr Documented By: AP Acetaminophen (Ofirmev) 1,000 mg in 100 mls @ 400 mls/hr IV NOW STA Stop: 12/29/22 15:48 Last Infusion: 12/30/22 09:33 Dose: 0 mls/hr Documented By: Admin: 12/29/22 16:07 Dose: 400 mls/hr Documented By: LATOSHA Magnesium Sulfate/Dextrose (Magnesium Sulfate / D5w) 1 gm in 100 mls @ 50 mls/hr IV BID [facility] Stop: 12/30/22 22:59 Last Infusion: 12/30/22 13:31 Dose: 0 mls/hr Documented By: Admin: 12/30/22 11:27 Dose: 50 mls/hr Documented By: Infusion: 12/30/22 11:27 Dose: 50 mls/hr Documented By: Admin: 12/30/22 09:55 Dose: 50 mls/hr Documented By: ELI Ioversol (Optiray 320 500ml) 120 ml IV ONCE ONE Stop: 12/29/22 13:49 Last Admin: 12/29/22 13:48 Dose: 120 ml Documented By: AYO Imaging Data Radiologist's Impression: Chest X-Ray 12/29/22 12:09 XR chest 1V portable CLINICAL HISTORY: neuro deficit, acute stroke suspected TECHNIQUE: Single frontal radiograph of the chest was obtained. Comparison: Comparison is made to chest radiograph 05/12/2022 FINDINGS: Median sternotomy wires are unchanged. Cardiomegaly is noted. The lungs are clear. No evidence of pleural effusion or pneumothorax. IMPRESSION: No acute chest disease. Cardiomegaly is noted. ACT 112: Negative or not required by law. Electronically signed by: Warren Latham M.D. 12/29/2022 12:[address] 12/29/22 12:09 CT angio neck with con, CT angio head w con, CT head/brain wo con CLINICAL HISTORY: neuro deficit, acute stroke suspected TECHNIQUE: Contiguous axial CT images of the head were acquired from the base of the skull to the vertex without intravenous contrast administration. CT angiography of the head and neck was performed following intravenous administration of iodinated contrast. Coronal and sagittal MIPS were obtained from the axial data set and were submitted for review. Automated dose lowering techniques and/or adjustment according to patient size were utilized for this examination. All measurements were calculated based on NASCET criteria. CT DOSE: 1085.20 mGy.cm Comparison: None available at the time of this dictation. FINDINGS: CT head: Loss of khalil-white differentiation is seen in the left cerebellum with associated edema and mass effect upon the fourth ventricle. No herniation is seen. Mild diffuse encephalomalacia is seen. No intracranial hemorrhage. Findings of old infarct are seen in the right occipital lobe and right cerebellum. Lungs and soft tissues are unremarkable. Mediastinal lymphadenopathy is seen. CTA Neck: A 3 vessel aortic arch is shown. Atherosclerotic plaque is present in the aortic arch and at the origin of the great vessels. Likely hemodynamically significant stenosis is seen in the right internal carotid artery origin due to surrounding atherosclerosis, however there is no yousif occlusion. The left vertebral artery is dominant. CTA Head: The anterior and posterior cerebral circulations are patent. origin of the left posterior cerebral artery is seen. There is attenuation of the distal left superior cerebellar artery. IMPRESSION: 1. 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 2. Likely hemodynamically significant stenosis of the right internal carotid artery. Assessment of stenosis of the internal carotid arteries is based on NASCET criteria. ACT 112: Negative or not required by law. Electronically signed by: Warren Latham M.D. 12/29/2022 2:16 PM Head CTA 12/29/22 12:09 CT angio neck with con, CT angio head w con, CT head/brain wo con CLINICAL HISTORY: neuro deficit, acute stroke suspected TECHNIQUE: Contiguous axial CT images of the head were acquired from the base of the skull to the vertex without intravenous contrast administration. CT angiography of the head and neck was performed following intravenous administration of iodinated contrast. Coronal and sagittal MIPS were obtained from the axial data set and were submitted for review. Automated dose lowering techniques and/or adjustment according to patient size were utilized for this examination. All measurements were calculated based on NASCET criteria. CT DOSE: 1085.20 mGy.cm Comparison: None available at the time of this dictation. FINDINGS: CT head: Loss of khalil-white differentiation is seen in the left cerebellum with associated edema and mass effect upon the fourth ventricle. No herniation is seen. Mild diffuse encephalomalacia is seen. No intracranial hemorrhage. Findings of old infarct are seen in the right occipital lobe and right cerebellum. Lungs and soft tissues are unremarkable. Mediastinal lymphadenopathy is seen. CTA Neck: A 3 vessel aortic arch is shown. Atherosclerotic plaque is present in the aortic arch and at the origin of the great vessels. Likely hemodynamically significant stenosis is seen in the right internal carotid artery origin due to surrounding atherosclerosis, however there is no yousif occlusion. The left vertebral artery is dominant. CTA Head: The anterior and posterior cerebral circulations are patent. origin of the left posterior cerebral artery is seen. There is attenuation of the distal left superior cerebellar artery. IMPRESSION: 1. 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 2. Likely hemodynamically significant stenosis of the right internal carotid artery. Assessment of stenosis of the internal carotid arteries is based on NASCET cr iteria. ACT 112: Negative or not required by law. Electronically signed by: Warren Latham M.D. 12/29/2022 2:16 PM Neck CTA 12/29/22 12:09 CT angio neck with con, CT angio head w con, CT head/brain wo con CLINICAL HISTORY: neuro deficit, acute stroke suspected TECHNIQUE: Contiguous axial CT images of the head were acquired from the base of the skull to the vertex without intravenous contrast administration. CT angiography of the head and neck was performed following intravenous administ ration of iodinated contrast. Coronal and sagittal MIPS were obtained from the axial data set and were submitted for review. Automated dose lowering techniques and/or adjustment according to patient size were utilized for this examination. All measurements were calculated based on NASCET criteria. CT DOSE: 1085.20 mGy.cm Comparison: None available at the time of this dictation. FINDINGS: CT head: Loss of khalil-white differentiation is seen in the left cerebellum with associated edema and mass effect upon the fourth ventricle. No herniation is seen. Mild diffuse encephalomalacia is seen. No intracranial hemorrhage. Findings of old infarct are seen in the right occipital lobe and right cerebellum. Lungs and soft tissues are unremarkable. Mediastinal lymphadenopathy is seen. CTA Neck: A 3 vessel aortic arch is shown. Atherosclerotic plaque is present in the aortic arch and at the origin of the great vessels. Likely hemodynamically significant stenosis is seen in the right internal carotid artery origin due to surrounding atherosclerosis, however there is no yousif occlusion. The left vertebral artery is dominant. CTA Head: The anterior and posterior cerebral circulations are patent. origin of the left posterior cerebral artery is seen. There is attenuation of the distal left superior cerebellar artery. IMPRESSION: 1. 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 2. Likely hemodynamically significant stenosis of the right internal carotid artery. Assessment of stenosis of the internal carotid arteries is based on NASCET criteria. ACT 112: Negative or not required by law. Electronically signed by: Warren Latham M.D. 12/29/2022 2:16 PM Discharge Plan Visit Data Chief Complaint: Weakness Stated Complaint: L SIDE WEAKNESS, STROKE LIKE SX ED Provider: Jolanta Zuniga Discharge Problem: Acute CVA (cerebrovascular accident), Hypomagnesemia Patient Disposition: Admitted As Inpatient Discharge Instructions Interventions: ED Discharge Assessment Last Done: 12/29/22 17:37
[2022-12-29 13:06] LABS: Basophils # (auto) 0.02 K/uL (0-0.2); Basophils % (auto) 0.3 %; Eosinophils # (auto) 0.02 K/uL (0-0.50); Eosinophils % (auto) 0.3 %; Hematocrit (blood only) 41.8 % (42.0-52.0); Immature Granulocytes # (auto) 0.06 K/uL (0.01-0.20); Immature Granulocytes % (auto) 0.8 %; Lymphocytes # (auto) 1.68 K/uL (1.2-3.4); Mean Corpuscular Hgb Conc 33.5 g/dL (32.0-36.0); Mean Corpuscular Volume 86.7 fL (80.0-100.0); Mean Platelet Volume 9.6 fL (9.4-12.4); Monocytes # (auto) 0.69 K/uL (0.11-0.59); Monocytes % (auto) 9.1 %; Neutrophils # (auto) 5.15 K/uL (1.40-6.50); Neutrophils % (auto) 67.5 %; Platelet Count 154 K/uL (130-400); RDW Coefficient of Variation 17.7 % (11.5-14.5); RDW Standard Deviation 55.8 fL (36.4-46.3); Red Blood Count 4.82 M/uL (4.70-6.10); White Blood Count 7.62 K/ul (4.8-10.8)
[2022-12-29 13:13] LABS: Albumin Globulin Ratio 1.4 (0.9-2); Albumin Level 4.3 gm/dl (3.4-5.0); BUN Creatinine Ratio 28.6 (10-20); Bilirubin,Total 0.6 mg/dl (0.2-1.0); Calcium 9.6 mg/dl (8.6-10.3); Creatinine Clr Calc Pharmacy 58.5 ml/min; Est GFR (African American) 88.1 ml/min; Magnesium 1.6 mg/dl (1.7-2.4); Potassium 3.5 mmol/L (3.5-5.1); Total Protein 7.3 gm/dl (6.0-8.3)
[2022-12-29 13:19] LABS: Troponin I High Sensitivity 6.8 pg/ml (0-20)
[2022-12-29] MEDS ORDERED: MAGNESIUM SULFATE / D5W 1 GM/100 ML BAG IV STA (13:23)
[2022-12-29 13:39] LABS: INR 1.1 (0.9-1.1); Partial Thromboplastin Time 27.9 Seconds (21.0-31.0); Prothrombin Time 11.5 Seconds (9.0-12.0)
[2022-12-29] MEDS ORDERED: OPTIRAY 320 500ml IV ONE (13:48)
--- NOTE | 2022-12-29 14:17 | CT Scan Report ---
CT angio neck with con, CT angio head w con, CT head/brain wo con CLINICAL HISTORY: neuro deficit, acute stroke suspected TECHNIQUE: Contiguous axial CT images of the head were acquired from the base of the skull to the adrián jenelle without intravenous contrast administration. CT angiography of the head and neck was performed f ollowing intravenous administration of iodinated contrast. Coronal and sagittal MIPS were obtained fr om the axial data set and were submitted for review. Automated dose lowering techniques and/or adjus tment according to patient size were utilized for this examination. All measurements were calculated based on NASCET criteria. CT DOSE: 1085.20 mGy.cm Comparison: None available at the time of this dictation. FINDINGS: CT head: Loss of khalil-white differentiation is seen in the left cerebellum with associated edema and mass effect upon the fourth ventricle. No herniation is seen. Mild diffuse encephalomalacia is seen. No intracranial hemorrhage. Findings of old infarct are seen in the right occipital lobe and right ce rebellum. Lungs and soft tissues are unremarkable. Mediastinal lymphadenopathy is seen. CTA Neck: A 3 vessel aortic arch is shown. Atherosclerotic plaque is present in the aortic arch and at the origin of the great vessels. Likely hemodynamically significant stenosis is seen in the right internal carotid artery origin due to surrounding atherosclerosis, however there is no yousif occlusio n. The left vertebral artery is dominant. CTA Head: The anterior and posterior cerebral circulations are patent. origin of the left post erior cerebral artery is seen. There is attenuation of the distal left superior cerebellar artery. IMPRESSION: 1. Early subacute appearing left superior cerebellar infarct with attenuation of the left superior c erebellar artery. 2. Likely hemodynamically significant stenosis of the right internal carotid artery. Assessment of stenosis of the internal carotid arteries is based on NASCET criteria. ACT 112: Negative or not required by law. Electronically signed by: Warren Latham M.D. 12/29/2022 2:16 PM
--- NOTE | 2022-12-29 14:18 | Electrocardiogram Report ---
Test Reason : Blood Pressure : / mmHG Vent. Rate : 068 BPM Atrial Rate : 068 BPM P-R Int : 202 ms QRS Dur : 098 ms QT Int : 370 ms P-R-T Axes : 029 -30 033 degrees QTc Int : 393 ms Normal sinus rhythm Left axis deviation Minor Non-specific intra-ventricular conduction delay Diffuse Nonspecific T wave abnormality Abnormal ECG When compared with ECG of 09-JUN-2019 09:42, No significant change Confirmed by Sunday Nava ([id number]) on 12/29/2022 2:18:05 PM Referred By: Confirmed By:Sunday Nava
[2022-12-29] MEDS ORDERED: ASPIRIN 325 MG ECTAB PO STA (14:43)
--- NOTE | 2022-12-29 15:02 | History & Physical Report ---
Date of Service December 29, 2022 Assessment & Plan (1) Acute CVA (cerebrovascular accident): (2) Diabetes mellitus: (3) CAD (coronary artery disease): (4) Peripheral artery disease: (5) ERINN (obstructive sleep apnea): (6) HTN (hypertension): Plan This is an 87-year-old male who has significant past medical history of chronic respiratory failure with hypoxia, COPD, ERINN on CPAP, T2DM, HTN, chronic diastolic CHF, bicuspid aortic valve, history of TAVR, CAD with hx of CABG x 4 with atherosclerosis of bypass vessels, peripheral vascular disease status post R common femoral endarterectomy, B/L common iliac stenting, carotid artery stenosis s/p b/l thromboendarterectomy w/ patch, GERD, pneumoconiosis, BPH, chronic back pain, history of tobacco abuse who presents ED secondary to feeling x2 days. Subacute left superior cerebellar CVA Dizziness Right internal carotid artery stenosis Admit to PCU Consult neurology Full stroke work-up with MRI, echocardiogram, PT and OT Patient with history of bilateral carotid endarterectomies, now with significant stenosis to right internal carotid Discussed with family at bedside, patient established with Dr. Montana, he will need outpatient follow-up with him at discharge Patient currently already on aspirin, Plavix and high-dose statin Received 324 mg aspirin in ED a1c, lipid panel in a.m. 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 Montana, will need close follow-up as outpatient Chronic PARK, back and neck pain prn tramadol -pt has not yet started, will trial continue Tylenol, family states pt tolerates oxycodone as well DVT ppx: SCDs for now, consider chemical ppx in a.m. Dispo: PCU for stroke w/u, PT/OT, pt may need rehab; however family adamant about wanting pt to come home, a lot of family support DNR/DNI PCP: Dr. Anthony Pt was seen and examined in collaboration with Dr. Velasquez, please see addendum A total of 75 was spent coordinating, documenting, and providing care for this patient excluding time spent in the performance of separately billed services. This included personally viewing all current laboratories and imaging studies, medication reconciliation, outpatient chart review, and discussion with specialists. History of Present Illness Chief Complaint: Ill feeling x 2 days. Primary Care Provider: Jae Anthony MD This is an 87-year-old male who has significant past medical history of chronic respiratory failure with hypoxia, COPD, ERINN on CPAP, T2DM, HTN, chronic diastolic CHF, bicuspid aortic valve, history of TAVR, CAD with hx of CABG x 4 with atherosclerosis of bypass vessels, peripheral vascular disease status post R common femoral endarterectomy, B/L common iliac stenting, carotid artery stenosis s/p b/l thromboendarterectomy w/ patch, GERD, pneumoconiosis, BPH, chronic back pain, history of tobacco abuse who presents ED secondary to feeling x2 days. Multiple family members at bedside. Patient was in his normal state of health until Tuesday. at bedside he started complaining of being dizzy and was having difficulty walking. He also was favoring his left side. Family members were assisting patient out of bed into the chair, but he persistently refused to come to ER for further evaluation. Patient states he overall feels, "terrible." He complains of dizziness, headache and chronic abdominal pain. He also has chronic head and neck pain. He also complains of left-sided weakness. Family reports slight slurred speech and they definitely feel he is not himself or his baseline. They deny any facial droop or loss of bowel bladder. Denies any falls. Patient is alert and oriented x3. He is very hard of hearing. He has no prior history of stroke. Overall patient has decreased appetite and increased nausea since Tuesday. At baseline patient ambulates with a cane. Allergies Allergy/AdvReac Type Severity Reaction Status Date / Time codeine AdvReac Mild Anxiety Verified 05/26/22 10:56 symptoms hydrocodone AdvReac Mild Anxiety, Verified 05/26/22 10:56 insomnia Home Medications Medication Instructions Recorded Confirmed Type acetaminophen 500 mg tablet 1,000 mg PO BID 06/08/19 12/29/22 History (Acetaminophen Extra Strength) aspirin 81 mg tablet,delayed 81 mg PO QAM 06/08/19 12/29/22 History release carvedilol 12.5 mg tablet 12.5 mg PO BID 06/08/19 12/29/22 History clopidogrel 75 mg tablet 75 mg PO QAM 06/08/19 12/29/22 History cyanocobalamin (vitamin B-12) 1,000 mcg PO QAM 06/08/19 12/29/22 History 1,000 mcg tablet (Vitamin B-12) fluticasone fur. 100 mcg-umeclid 1 inh inhalation QAM 06/08/19 12/29/22 History 62.5 mcg-vilant 25 mcg inhalat.powder (Trelegy Ellipta) levothyroxine 25 mcg tablet 25 mcg PO QAM 06/08/19 12/29/22 History metformin 500 mg tablet 1,000 mg PO BID 06/08/19 12/29/22 History multivitamin 1 tab PO QAM 06/08/19 12/29/22 History nitroglycerin 0.4 mg sublingual 0.4 mg sublingual UD 06/08/19 12/29/22 History tablet (Nitrostat) pantoprazole 40 mg tablet,delayed 40 mg PO QAM 06/08/19 12/29/22 History release potassium chloride 10 mEq 10 meq PO QAM 06/08/19 12/29/22 History capsule,extended release rosuvastatin 20 mg tablet 40 mg PO QPM 06/08/19 12/29/22 History magnesium oxide 500 mg tablet 500 mg PO QAM 04/28/22 12/29/22 History pregabalin 75 mg capsule (Lyrica) 75 mg PO BID 04/28/22 12/29/22 History torsemide 20 mg tablet 20 mg PO QAM 04/28/22 12/29/22 History tramadol 50 mg tablet 50 mg PO HS PRN Pain 12/29/22 12/29/22 History Past Med/Surg History Medical History Aortic stenosis s/p TAVR BPH (benign prostatic hyperplasia) CAD (coronary artery disease) CABG x 4 (2000) Stent x1 (2006) Cath (2011) - SVG to 1st diagonal 100% occluded, other grafts patent Carotid artery disease s/p Left CEA (2011), right (2012) Carotid artery stenosis Diabetes mellitus Dyslipidemia GERD (gastroesophageal reflux disease) HTN (hypertension) Hypothyroidism Obesity ERINN (obstructive sleep apnea) CPAP with O2 3.5L HS Rest pain of both lower extremities due to atherosclerosis Surgical History Amputated finger H/O repair of right rotator cuff H/O vascular surgery (05/26/22) Right Common Femoral Artery Endarterectomy,(Right) with bovine patch - Maurizio Mnotana MD sBilateral Iliac Stents(Bilateral) - Maurizio Montana MD History of anesthesia reaction Slow to wake History of cardiac cath Stent x1 (2006) History of CEA (carotid endarterectomy) Left - 2011 Right - 2013 History of cholecystectomy History of colonoscopy History of coronary artery bypass graft CABG x4 (2000) History of heart valve replacement AVR [facility] after 2006 Hx of cataract surgery S/P laminectomy with spinal fusion Back surgeries x2 S/P TURP Family History Brother Diabetes Coronary heart disease, Onset Age: 60 Brother Coronary heart disease, Onset Age: 50 Diabetes Mother Diabetes Social History Smoking Status: Never smoker packs per day: 4; Second Hand Exposure: No; Do You Dip or Chew Tobacco: No; Hx Alcohol Use: No (limited occasions) Hx Substance Use: No Preferred Language: Honduran Communication Ability: Effective Van Driver Required: No Beliefs That Will Affect Care: None marital status: Current Living Situation: Spouse current occupational status: retired Feels Safe at Home: Yes Assistive Devices: Cane, Hearing Aid - Right and Walker Review of Systems Review of Systems: All systems reviewed & are unremarkable except as noted in HPI & below Physical Exam Physical Exam: please refer to Dr. Velasquez addendum for physical exam findings Results & Data Results & Data Vital Signs (Past 12 Hours) Vital Signs Temp Pulse Resp BP Pulse Ox O2 Del Method O2 Flow Rate 12/29/22 13:00 64 19 159/77 H 98 Nasal Cannula 2 12/29/22 12:10 89 L Nasal Cannula 0 12/29/22 12:10 36.9 C 67 18 173/78 H 97 Nasal Cannula 3 12/29/22 12:09 70 Diagnostic Findings Chest X-Ray 12/29/22 12:09 XR chest 1V portable CLINICAL HISTORY: neuro deficit, acute stroke suspected TECHNIQUE: Single frontal radiograph of the chest was obtained. Comparison: Comparison is made to chest radiograph 05/12/2022 FINDINGS: Median sternotomy wires are unchanged. Cardiomegaly is noted. The lungs are clear. No evidence of pleural effusion or pneumothorax. IMPRESSION: No acute chest disease. Cardiomegaly is noted. ACT 112: Negative or not required by law. Electronically signed by: Warren Latham M.D. 12/29/2022 12:[address] 12/29/22 12:09 CT angio neck with con, CT angio head w con, CT head/brain wo con CLINICAL HISTORY: neuro deficit, acute stroke suspected TECHNIQUE: Contiguous axial CT images of the head were acquired from the base of the skull to the vertex without intravenous contrast administration. CT angiography of the head and neck was performed following intravenous administration of iodinated contrast. Coronal and sagittal MIPS were obtained from the axial data set and were submitted for review. Automated dose lowering techniques and/or adjustment according to patient size were utilized for this examination. All measurements were calculated based on NASCET criteria. CT DOSE: 1085.20 mGy.cm Comparison: None available at the time of this dictation. FINDINGS: CT head: Loss of khalil-white differentiation is seen in the left cerebellum with associated edema and mass effect upon the fourth ventricle. No herniation is seen. Mild diffuse encephalomalacia is seen. No intracranial hemorrhage. Findings of old infarct are seen in the right occipital lobe and right cerebellum. Lungs and soft tissues are unremarkable. Mediastinal lymphadenopathy is seen. CTA Neck: A 3 vessel aortic arch is shown. Atherosclerotic plaque is present in the aortic arch and at the origin of the great vessels. Likely hemodynamically significant stenosis is seen in the right internal carotid artery origin due to surrounding atherosclerosis, however there is no yousif occlusion. The left vertebral artery is dominant. CTA Head: The anterior and posterior cerebral circulations are patent. origin of the left posterior cerebral artery is seen. There is attenuation of the distal left superior cerebellar artery. IMPRESSION: 1. 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 2. Likely hemodynamically significant stenosis of the right internal carotid artery. Assessment of stenosis of the internal carotid arteries is based on NASCET criteria. ACT 112: Negative or not required by law. Electronically signed by: Warren Latham M.D. 12/29/2022 2:16 PM Head CTA 12/29/22 12:09 CT angio neck with con, CT angio head w con, CT head/brain wo con CLINICAL HISTORY: neuro deficit, acute stroke suspected TECHNIQUE: Contiguous axial CT images of the head were acquired from the base of the skull to the vertex without intravenous contrast administration. CT angiography of the head and neck was performed following intravenous administration of iodinated contrast. Coronal and sagittal MIPS were obtained from the axial data set and were submitted for review. Automated dose lowering techniques and/or adjustment according to patient size were utilized for this examination. All measurements were calculated based on NASCET criteria. CT DOSE: 1085.20 mGy.cm Comparison: None available at the time of this dictation. FINDINGS: CT head: Loss of khalil-white differentiation is seen in the left cerebellum with associated edema and mass effect upon the fourth ventricle. No herniation is seen. Mild diffuse encephalomalacia is seen. No intracranial hemorrhage. Findings of old infarct are seen in the right occipital lobe and right cerebellum. Lungs and soft tissues are unremarkable. Mediastinal lymphadenopathy is seen. CTA Neck: A 3 vessel aortic arch is shown. Atherosclerotic plaque is present in the aortic arch and at the origin of the great vessels. Likely hemodynamically significant stenosis is seen in the right internal carotid artery origin due to surrounding atherosclerosis, however there is no yousif occlusion. The left vertebral artery is dominant. CTA Head: The anterior and posterior cerebral circulations are patent. origin of the left posterior cerebral artery is seen. There is attenuation of the distal left superior cerebellar artery. IMPRESSION: 1. 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 2. Likely hemodynamically significant stenosis of the right internal carotid artery. Assessment of stenosis of the internal carotid arteries is based on NASCET criteria. ACT 112: Negative or not required by law. Electronically signed by: Warren Latham M.D. 12/29/2022 2:16 PM Neck CTA 12/29/22 12:09 CT angio neck with con, CT angio head w con, CT head/brain wo con CLINICAL HISTORY: neuro deficit, acute stroke suspected TECHNIQUE: Contiguous axial CT images of the head were acquired from the base of the skull to the vertex without intravenous contrast administration. CT angiography of the head and neck was performed following intravenous administration of iodinated contrast. Coronal and sagittal MIPS were obtained from the axial data set and were submitted for review. Automated dose lowering techniques and/or adjustment according to patient size were utilized for this examination. All measurements were calculated based on NASCET criteria. CT DOSE: 1085.20 mGy.cm Comparison: None available at the time of this dictation. FINDINGS: CT head: Loss of khalil-white differentiation is seen in the left cerebellum with associated edema and mass effect upon the fourth ventricle. No herniation is seen. Mild diffuse encephalomalacia is seen. No intracranial hemorrhage. Findings of old infarct are seen in the right occipital lobe and right cerebellum. Lungs and soft tissues are unremarkable. Mediastinal lymphadenopathy is seen. CTA Neck: A 3 vessel aortic arch is shown. Atherosclerotic plaque is present in the aortic arch and at the origin of the great vessels. Likely hemodynamically significant stenosis is seen in the right internal carotid artery origin due to surrounding atherosclerosis, however there is no yousif occlusion. The left vertebral artery is dominant. CTA Head: The anterior and posterior cerebral circulations are patent. origin of the left posterior cerebral artery is seen. There is attenuation of the distal left superior cerebellar artery. IMPRESSION: 1. 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 2. Likely hemodynamically significant stenosis of the right internal carotid artery. Assessment of stenosis of the internal carotid arteries is based on NASCET criteria. ACT 112: Negative or not required by law. Electronically signed by: Warren Latham M.D. 12/29/2022 2:16 PM Medications Administered Medication List Sodium Chloride (Nss 1000ml) 1,000 mls @ 125 mls/hr IV .Q8H UNA Stop: 01/28/23 12:14 Last Admin: 12/29/22 12:19 Dose: 125 mls/hr Documented By: QGV Discontinued Medications Magnesium Sulfate/Dextrose (Magnesium Sulfate / D5w) 1 gm in 100 mls @ 100 mls/hr IV NOW STA Stop: 12/29/22 14:22 Last Admin: 12/29/22 14:44 Dose: 100 mls/hr Documented By: AP Ioversol (Optiray 320 500ml) 120 ml IV ONCE ONE Stop: 12/29/22 13:49 Last Admin: 12/29/22 13:48 Dose: 120 ml Documented By: AYO ECG Rate (beats per minute): 68 Rhythm: normal sinus COVID-19 Results Results COVID-19 Adm Lab Results: RBC 4.82 M/uL (4.70-6.10) 12/29/22 WBC 7.62 K/ul (4.8-10.8) 12/29/22 Hgb 14.0 g/dl (14.0-18.0) 12/29/22 Hct 41.8 % (42.0-52.0) L 12/29/22 Plt Count 154 K/uL (130-400) 12/29/22 Neutrophils (%) (Auto) 67.5 % 12/29/22 Lymphocytes (%) (Auto) 22.0 % 12/29/22 Monocytes # (Auto) 0.69 K/uL (0.11-0.59) H 12/29/22 Eosinophils # (Auto) 0.02 K/uL (0-0.50) 12/29/22 Immature Granulocyte % (Auto) 0.8 % 12/29/22 Neutrophils # (Auto) 5.15 K/uL (1.40-6.50) 12/29/22 Lymphocytes # (Auto) 1.68 K/uL (1.2-3.4) 12/29/22 Monocytes # (Auto) 0.69 K/uL (0.11-0.59) H 12/29/22 Eosinophils # (Auto) 0.02 K/uL (0-0.50) 12/29/22 Basophils # (Auto) 0.02 K/uL (0-0.2) 12/29/22 Immature Granulocyte # (Auto) 0.06 K/uL (0.01-0.20) 3 Na 139 mmol/L (136-145) 12/29/22 K 3.5 mmol/L (3.5-5.1) 12/29/22 Cl 99 mmol/L (98-107) 12/29/22 CO2 30 mmol/L (21-32) 12/29/22 Anion Gap 10 (3-11) 12/29/22 BUN 26 mg/dl (6-23) H 12/29/22 Creatinine 0.91 mg/dl (0.6-1.4) 12/29/22 BUN/Creatinine Ratio 28.6 (10-20) H 12/29/22 Glucose Level 156 mg/dl (70-99(Fasting)) H 12/29/22 Ca 9.6 mg/dl (8.6-10.3) 12/29/22 Total Bilirubin 0.6 mg/dl (0.2-1.0) 12/29/22 AST/SGOT 24 U/L (13-39) 12/29/22 ALT/SGPT 24 U/L (7-52) 12/29/22 Alkaline Phosphatase 46 U/L (34-104) 12/29/22 Total Protein 7.3 gm/dl (6.0-8.3) 12/29/22 Albumin 4.3 gm/dl (3.4-5.0) 12/29/22 Globulin 3.0 gm/dl (2.5-4.0) 12/29/22 Albumin/Globulin Ratio 1.4 (0.9-2) 12/29/22 PTT 27.9 Seconds (21.0-31.0) 12/29/22 INR 1.1 (0.9-1.1) 12/29/22 SARS-CoV-2, RNA, NAAT NEGATIVE (NEGATIVE) 12/29/22 Chest X-Ray 12/29/22 Code Status & VTE Plan Code Status DNR VTE Prophylaxis Plan VTE Prophylaxis will be ordered: Yes (2) Diabetes mellitus Diabetes mellitus complication status: without complication Diabetes mellitus adjunct faculty for medical terminology insulin use: without adjunct faculty for medical terminology use Diabetes mellitus type: type 2 Qualified Code(s): E11.9 - Type 2 diabetes mellitus without complications
[2022-12-29] MEDS ORDERED: ACETAMINOPHEN 1,000 MG/100 ML VIAL IV STA (15:34)
[2022-12-29] MEDS ORDERED: MAGNESIUM HYDROXIDE SUSP 30 ML UDC PO PRN (19:14)
[2022-12-29] MEDS ORDERED: GLUCOSE 40% GEL 15 GM TUBE PO PRN (19:14)
[2022-12-29] MEDS ORDERED: ACETAMINOPHEN 325 MG TAB PO PRN (19:14)
[2022-12-29] MEDS ORDERED: CARBOHYDRATES FOR HYPOGLYCEMIA PO PRN (19:14)
[2022-12-29] MEDS ORDERED: traMADol HCL 50 MG TABLET PO PRN (19:14)
[2022-12-29] MEDS ORDERED: DEXTROSE 50% 50 ML SYRINGE IV PRN (19:14)
[2022-12-29] MEDS ORDERED: PHARMACIST DISCHARGE MED REC CONSULT PRN (19:14)
[2022-12-29] MEDS ORDERED: ALUMINUM/MAGNESIUM SUSP 30 ML UDC PO PRN (19:14)
[2022-12-29] MEDS ORDERED: GLUCOSE 10 TAB/TUBE PO PRN (19:14)
[2022-12-29] MEDS ORDERED: GLUCAGON FOR INJ 1 MG VIAL SQ PRN (19:14)
[2022-12-29 20:35] LABS: Appearance Urine Clear (Clear); Bilirubin Urine Negative (Negative); Blood Urine Negative (Negative); Color Urine Yellow; Glucose Urine UA Negative (Negative); Ketones Urine Negative (Negative); Leukocyte Esterase Urine Negative (Negative); Nitrite Urine Negative (Negative); Protein Urine Negative (Negative); Specific Gravity Urine 1.023 (1.000-1.030); Urobilinogen Urine Negative (Negative)
[2022-12-29] MEDS: INSULIN ASPART PER UNIT CHARGE SC SCH ×2 (20:58→21:21)
[2022-12-29] MEDS: carvediloL 12.5 MG TAB PO SCH (21:27)
[2022-12-29] MEDS: ACETAMINOPHEN 500 MG TAB PO SCH (21:27)
[2022-12-29] MEDS: ROSUVASTATIN CALCIUM 20 MG TAB PO SCH (21:27)
[2022-12-29] MEDS: LANTUS PER UNIT CHARGE SQ SCH (21:30)
[2022-12-29] MEDS: PREGABALIN 75 MG CAP PO SCH (21:30)
[2022-12-29] MEDS ORDERED: GADOBUTROL 65ML VIAL IV ONE (22:25)
--- NOTE | 2022-12-29 23:10 | Magnetic Resonance Report ---
Exam(s): MRI HEAD W/WO Contrast IV Amt: 8.5ml gadavist EXAM: MR Head Without and With Intravenous Contrast CLINICAL HISTORY: Reason for exam: cva. TECHNIQUE: Magnetic resonance images of the head/brain without and with intravenous contrast in multiple planes. CONTRAST: Patient received 8.5ml gadavist of IV contrast COMPARISON: Comparison made to prior CT angiogram of the head from October 29, 2022. FINDINGS: Brain: There is an acute ischemic injury in the left cerebellum with extensive cytotoxic edema, without evidence of hemorrhagic transformation. Multiple remote ischemic injuries of the cerebellum bilaterally. Moderate nonspecific white matter changes. The flow voids at the base of the right are intact. No evidence of abnormal enhancement. Ventricles: Motor ventriculomegaly. Bones/joints: Unremarkable. Sinuses: Unremarkable as visualized. No acute sinusitis. Mastoid air cells: Unremarkable as visualized. No mastoid effusion. Orbits: Bilateral lens replacements. IMPRESSION: Findings concerning for acute ischemic injury in the left cerebellum with extensive cytotoxic edema, without evidence of hemorrhagic transformation. Multiple remote ischemic injuries of the cerebellum. Moderate nonspecific white matter changes. Moderate ventriculomegaly. Electronically signed by: Isabel Santos MD 12/29/22 23:09 PM
[2022-12-30] MEDS: LEVOTHYROXINE SODIUM 25 MCG TABLET PO SCH (05:36)
[2022-12-30 06:19] LABS: Basophils # (auto) 0.01 K/uL (0-0.2); Basophils % (auto) 0.1 %; Eosinophils # (auto) 0.05 K/uL (0-0.50); Eosinophils % (auto) 0.7 %; Hematocrit (blood only) 42.9 % (42.0-52.0); Hemoglobin 14.2 g/dl (14.0-18.0); Immature Granulocytes # (auto) 0.03 K/uL (0.01-0.20); Immature Granulocytes % (auto) 0.4 %; Lymphocytes % (auto) 23.6 %; Mean Corpuscular Hemoglobin 28.9 pg (25.0-34.0); Mean Corpuscular Hgb Conc 33.1 g/dL (32.0-36.0); Mean Corpuscular Volume 87.2 fL (80.0-100.0); Mean Platelet Volume 9.2 fL (9.4-12.4); Monocytes # (auto) 0.81 K/uL (0.11-0.59); Monocytes % (auto) 10.6 %; Neutrophils # (auto) 4.92 K/uL (1.40-6.50); Neutrophils % (auto) 64.6 %; Platelet Count 146 K/uL (130-400); RDW Coefficient of Variation 17.9 % (11.5-14.5); RDW Standard Deviation 57.7 fL (36.4-46.3); Red Blood Count 4.92 M/uL (4.70-6.10); White Blood Count 7.62 K/ul (4.8-10.8)
[2022-12-30 06:24] LABS: Anion Gap 12 (3-11); BUN Creatinine Ratio 28.2 (10-20); Blood Urea Nitrogen 29 mg/dl (6-23); Calcium 9.4 mg/dl (8.6-10.3); Carbon Dioxide 31 mmol/L (21-32); Chloride 99 mmol/L (98-107); Cholesterol 89 mg/dl (0-200); Est GFR (African American) 75.9 ml/min; Est GFR (Non-African American) 65.5 ml/min; Glucose 118 mg/dl (70-99(Fasting)); HDL Cholesterol 27 mg/dl; Potassium 3.5 mmol/L (3.5-5.1); Sodium 142 mmol/L (136-145); Triglycerides 355 mg/dl (0-150)
[2022-12-30 06:28] LABS: Chol HDL Ratio 3.3 (0-5); VLDL Cholesterol 71 mg/dl (0-30)
[2022-12-30 08:28] LABS: Estimated Average Glucose 171 mg/dl; Hemoglobin A1C 7.6 % (4.5-5.6)
[2022-12-30] MEDS ORDERED: POTASSIUM CHLORIDE 10 MEQ TABCR PO SCH (09:00)
[2022-12-30] MEDS ORDERED: NON-FORMULARY MEDICATION (Fluticasone-Umeclidin-Vilanter [Trelegy Ellipta] 100-62.5-25 mcg INH SCH (09:00)
[2022-12-30] MEDS: PREGABALIN 75 MG CAP PO SCH ×2 (09:01→20:59)
[2022-12-30] MEDS: FLUTICASONE FUROATE 100MCG 14 PUFFS/INHALER INH SCH (09:02)
[2022-12-30] MEDS: MULTIVITAMIN TAB PO SCH (09:02)
[2022-12-30] MEDS: MAGNESIUM OXIDE 400 MG TAB PO SCH (09:02)
[2022-12-30] MEDS: CYANOCOBALAMIN (B-12) 500 MCG TABLET PO SCH (09:02)
[2022-12-30] MEDS: UMECLIDINIUM/VILANTEROL 62.5/25MCG 7 PUFFS/INHALER INH SCH (09:02)
[2022-12-30] MEDS: PANTOprazole 40 MG TAB PO SCH (09:02)
[2022-12-30] MEDS: LANTUS PER UNIT CHARGE SQ SCH ×2 (09:03→21:31)
[2022-12-30] MEDS: ACETAMINOPHEN 500 MG TAB PO SCH ×2 (09:03→20:55)
[2022-12-30] MEDS: INSULIN ASPART PER UNIT CHARGE SC SCH ×4 (09:03→21:31)
[2022-12-30] MEDS: ASPIRIN 81 MG ECTAB PO SCH (09:03)
[2022-12-30] MEDS: carvediloL 12.5 MG TAB PO SCH ×2 (09:03→20:55)
[2022-12-30] MEDS: CLOPIDOGREL BISULFATE 75 MG TAB PO SCH (09:03)
[2022-12-30] MEDS: TORSEMIDE 20 MG TAB PO SCH (09:04)
--- NOTE | 2022-12-30 09:10 | Neurology Consultation ---
Date of Consultation December 30, 2022 Assessment & Plan (1) Cerebellar stroke: Patient presents with 4 days of dysarthria and ataxia found to have an acute large L cerebellar stroke likely cardioembolic mechanism. He may be nearing peak swelling, however, 4th ventricle is widely patent. I recommend closer neuro mo nitoring for the next 24 hours (q2 checks) and a repeat CT head tomorrow. If the CT head tomorrow is stable, checks can be reduced to q4. He will need further workup for paroxysmal afib but would otherwise not change aspirin/plavix unless afib is detected. If afib is detected would start eliquis +aspirin but no earlier than 01/05 based on the size of the stroke. Encourage PT for dispo planning but overall prognosis with cerebellar stroke is excellent. Otherwise, headache is common with stroke in this region, agree with scheduled tylenol. Avoid sedating pain medications to preserve integrity of the neuro checks. Can try IV mag 1g BID to help with pain. -- Continue aspirin 81mg daily and plavix 75mg daily -- Echo pending, continue tele -- q2 neuro checks until AM, repeat head CT tomorrow AM -- Therapy evals -- Tylenol scheduled for headache -- Can try 1g IV magnesium BID for headache -- Avoid narcotics/toradol for headache -- Holter monitor/zio patch as an outpatient -- Neuro follow-up in 4-6 weeks -- Vascular surgery followup for carotid stenosis (not related to current presentation) Telehealth Consultation Telehealth Information Telehealth Information: I performed this visit using a real-time telehealth connection between my location and the patients location ([facility]). After connecting through interactive tele-video, patient was identified by name and date of and/or wristband check.Patient (or authorized healthcare outbound sales representative) was informed that this was a telemedicine visit and it was being conducted confidentially over secure lines. My office door was closed and no one else was present in the room with me.Patient (or authorized healthcare outbound sales representative) provided consent to proceed with the visit, expressed an understanding of privacy and security of the telemedicine visit, and gave permission to have a hospital outbound sales representative in the room in order to assist with the visit and to conduct portions of the visit, as needed. I informed the patient (or authorized healthcare outbound sales representative) that I reviewed their record and presented the opportunity for them to ask any questions regarding the visit today. The patient agreed to participate. History of Present Illness Reason for Consultation: Cerebellar stroke Requesting Physician: Dr. Rodriguez Attending Physician: Rolf Rodriguez MD History of Present Illness Jewel Campo is an 87 yo M presenting with difficulty walking, slurred speech and vertigo since Tuesday (4 days ago). Found on admission to have a large L cerebellar stroke. The patient currently complains of a headache but his vertigo has lessened since admission. Family was present in the room and on the phone and their questions were answered. He has a history of carotid stenosis and PVD followed by vascular surgery. Overall he does not do well with anesthesia and vascular surgery felt the risks outweighed the benefit of carotid revascularization. He has been taking his aspirin and plavix as an outpatient. Otherwise denies any new symptoms since being admitted. Allergies Allergy/AdvReac Type Severity Reaction Status Date / Time codeine AdvReac Mild Anxiety Verified 05/26/22 10:56 symptoms hydrocodone AdvReac Mild Anxiety, Verified 05/26/22 10:56 insomnia Home Medications Medication Instructions Recorded Confirmed Type acetaminophen 500 mg tablet 1,000 mg PO BID 06/08/19 12/29/22 History (Acetaminophen Extra Strength) aspirin 81 mg tablet,delayed 81 mg PO QAM 06/08/19 12/29/22 History release carvedilol 12.5 mg tablet 12.5 mg PO BID 06/08/19 12/29/22 History clopidogrel 75 mg tablet 75 mg PO QAM 06/08/19 12/29/22 History cyanocobalamin (vitamin B-12) 1,000 mcg PO QAM 06/08/19 12/29/22 History 1,000 mcg tablet (Vitamin B-12) fluticasone fur. 100 mcg-umeclid 1 inh inhalation QAM 06/08/19 12/29/22 History 62.5 mcg-vilant 25 mcg inhalat.powder (Trelegy Ellipta) levothyroxine 25 mcg tablet 25 mcg PO QAM 06/08/19 12/29/22 History metformin 500 mg tablet 1,000 mg PO BID 06/08/19 12/29/22 History multivitamin 1 tab PO QAM 06/08/19 12/29/22 History nitroglycerin 0.4 mg sublingual 0.4 mg sublingual UD 06/08/19 12/29/22 History tablet (Nitrostat) pantoprazole 40 mg tablet,delayed 40 mg PO QAM 06/08/19 12/29/22 History release potassium chloride 10 mEq 10 meq PO QAM 06/08/19 12/29/22 History capsule,extended release rosuvastatin 20 mg tablet 40 mg PO QPM 06/08/19 12/29/22 History magnesium oxide 500 mg tablet 500 mg PO QAM 04/28/22 12/29/22 History pregabalin 75 mg capsule (Lyrica) 75 mg PO BID 04/28/22 12/29/22 History torsemide 20 mg tablet 20 mg PO QAM 04/28/22 12/29/22 History tramadol 50 mg tablet 50 mg PO HS PRN Pain 12/29/22 12/29/22 History Patient History Medical History Aortic stenosis s/p TAVR BPH (benign prostatic hyperplasia) CAD (coronary artery disease) CABG x 4 (2000) Stent x1 (2006) Cath (2011) - SVG to 1st diagonal 100% occluded, other grafts patent Carotid artery disease s/p Left CEA (2011), right (2012) Carotid artery stenosis Diabetes mellitus Dyslipidemia GERD (gastroesophageal reflux disease) HTN (hypertension) Hypothyroidism Obesity ERINN (obstructive sleep apnea) CPAP with O2 3.5L HS Rest pain of both lower extremities due to atherosclerosis Surgical History Amputated finger H/O repair of right rotator cuff H/O vascular surgery (05/26/22) Right Common Femoral Artery Endarterectomy,(Right) with bovine patch - Maurizio Montana MD sBilateral Iliac Stents(Bilateral) - Maurizio Montana MD History of anesthesia reaction Slow to wake History of cardiac cath Stent x1 (2006) History of CEA (carotid endarterectomy) Left - 2012 Right - 2013 History of cholecystectomy History of colonoscopy History of coronary artery bypass graft CABG x4 (2000) History of heart valve replacement AVR [facility] after 2006 Hx of cataract surgery S/P laminectomy with spinal fusion Back surgeries x2 S/P TURP Family History Brother Diabetes Coronary heart disease, Onset Age: 60 Brother Coronary heart disease, Onset Age: 50 Diabetes Mother Diabetes Social History Smoking Status: Former smoker packs per day: 4; Second Hand Exposure: No; Do You Dip or Chew Tobacco: No; Tobacco Cessation Education Requested by Patient: No Hx Alcohol Use: Yes Alcohol type: beer Hx Substance Use: No Preferred Language: Japanese Communication Ability: Impaired Desktop Manager Required: No Beliefs That Will Affect Care: None marital status: Current Living Situation: Spouse and Family current occupational status: retired Other Information That Helps Us Care for You: No Feels Safe at Home: Yes Safety Concerns: Feels Safe At This Time Assistive Devices: Cane, CPAP, Denture - Upper, Denture - Lower, Glasses, Hearing Aid - Bilateral, Oxygen - at Night and Walker Review of Systems +headache, slurred speech Physical Exam Neurological Examination: Mental Status: Awake and alert. Oriented to person and place. Fluent with mild ataxic dysarthria. Comprehension intact. Affect appropriate. Cranial Nerves: II: Reads NIHSS cards, pupils 3/3 to 2/2, fong grossly intact. III/IV/: Versions intact without nystagmus, no gaze preference. VII: Facial expression symmetric VIII: Hearing intact to voice XII: Tongue midline Motor: Strength was symmetric and antigravity throughout. Pronator drift was absent. There were no abnormal movements. Coordination: Finger to nose and heel to rosa were dysmetric on the left, arm > leg. Reflexes: Unable to assess over telemedicine Results & Data Vital Signs (Past 12 Hours) Vital Signs Temp Pulse Pulse Resp BP Pulse Ox O2 Del Method 12/30/22 07:05 36.5 C 66 17 168/78 H 92 CPAP 12/30/22 03:09 36.5 C 67 22 138/78 92 Room Air 12/29/22 23:14 67 12/29/22 22:56 36.6 C 69 16 150/75 H 96 Room Air Laboratory Results Abnormal lab results 12/29/22 12/29/22 12/29/22 Range/Units 12:05 12:05 12:17 Hct 41.8 L (42.0-52.0) % RDW Std Deviation 55.8 H (36.4-46.3) fL RDW Coeff of Maryan 17.7 H (11.5-14.5) % MPV (9.4-12.4) fL [place] # (Auto) 0.69 H (0.11-0.59) K/uL Anion Gap (3-11) BUN 26 H (6-23) mg/dl BUN/Creatinine Ratio 28.6 H (10-20) Glucose 156 H (70-99(Fasting)) mg/dl POC Glucose 155 H (70-99) mg/dl Hemoglobin A1c (4.5-5.6) % Magnesium 1.6 L (1.7-2.4) mg/dl Triglycerides (0-150) mg/dl VLDL Cholesterol, Calc (0-30) mg/dl 12/29/22 12/30/22 12/30/22 Range/Units 20:40 05:27 05:27 Hct (42.0-52.0) % RDW Std Deviation 57.7 H (36.4-46.3) fL RDW Coeff of Maryan 17.9 H (11.5-14.5) % MPV 9.2 L (9.4-12.4) fL [place] # (Auto) 0.81 H (0.11-0.59) K/uL Anion Gap 12 H (3-11) BUN 29 H (6-23) mg/dl BUN/Creatinine Ratio 28.2 H (10-20) Glucose 118 H (70-99(Fasting)) mg/dl POC Glucose 121 H (70-99) mg/dl Hemoglobin A1c (4.5-5.6) % Magnesium (1.7-2.4) mg/dl Triglycerides 355 H (0-150) mg/dl VLDL Cholesterol, Calc 71 H (0-30) mg/dl 12/30/22 12/30/22 Range/Units 05:27 08:17 Hct (42.0-52.0) % RDW Std Deviation (36.4-46.3) fL RDW Coeff of Maryan (11.5-14.5) % MPV (9.4-12.4) fL [place] # (Auto) (0.11-0.59) K/uL Anion Gap (3-11) BUN (6-23) mg/dl BUN/Creatinine Ratio (10-20) Glucose (70-99(Fasting)) mg/dl POC Glucose 138 H (70-99) mg/dl Hemoglobin A1c 7.6 H (4.5-5.6) % Magnesium (1.7-2.4) mg/dl Triglycerides (0-150) mg/dl VLDL Cholesterol, Calc (0-30) mg/dl Diagnostic Findings MRI brain - large L cerebellar stroke with some 4th ventricular effacement CTA head and neck - Severe R carotid stenosis with mixed plaque
[2022-12-30] MEDS: MAGNESIUM SULFATE / D5W 1 GM/100 ML BAG IV SCH ×2 (09:55→11:27)
--- NOTE | 2022-12-30 10:06 | Pharmacy Report ---
- Date of Service December 30, 2022 - Pharmacy CVA/TIA Medication Review Medications to Prevent Stroke handout has been added to the patients discharge packet. Antiplatelet(s) * aspirin 81 mg PO daily + clopidogrel 75 mg PO daily Cholesterol * High intensity statin: rosuvastatin 40 mg daily DVT Prophylaxis * SCD knee Therapeutic Anticoagulation * No history of Afib/Aflutter noted * Will monitor as outpatient Type 2 Diabetes * Patient has T2DM, but per Jennifer, a diabetes medication with proven CVD benefit will be deferred to their outpatient provider due to familiarity with risks/benefits of such therapies. "Medications to prevent stroke" handout has already been added to the patient's discharge packet, which instructs the patient to follow up with their outpatient provider to evaluate which diabetes medication with proven CVD benefit is best for them
[2022-12-30] MEDS: ONDANSETRON INJ 2 MG/ML 2 ML VIAL IV PRN (11:27)
--- NOTE | 2022-12-30 16:18 | Hospitalist Progress Note ---
Date of Service December 30, 2022 Assessment & Plan (1) Acute CVA (cerebrovascular accident): (2) Diabetes mellitus: (3) CAD (coronary artery disease): (4) Peripheral artery disease: (5) ERINN (obstructive sleep apnea): (6) HTN (hypertension): Plan This is an 87-year-old male who has significant past medical history of chronic respiratory failure with hypoxia, COPD, ERINN on CPAP, T2DM, HTN, chronic diastolic CHF, bicuspid aortic valve, history of TAVR, CAD with hx of CABG x 4 with atherosclerosis of bypass vessels, peripheral vascular disease status post R common femoral endarterectomy, B/L common iliac stenting, carotid artery stenosis s/p b/l thromboendarterectomy w/ patch, GERD, pneumoconiosis, BPH, chronic back pain, history of tobacco abuse who presents ED secondary to feeling x2 days. MRI brain Findings concerning for acute ischemic injury in the left cerebellum with extensive cytotoxic edema, without evidence of hemorrhagic transformation. Multiple remote ischemic injuries of the cerebellum. Moderate nonspecific white matter changes. Moderate ventriculomegaly CTA head/neck 1. 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 2. Likely hemodynamically significant stenosis of the right internal carotid artery. Echo- EF 55-60%, RA,RV and LA not well visualized, mod concentric LVF, s/p KARLOS with normal gradient Tele- sinus rhythm Acute left superior cerebellar CVA - Imagings reviewed as above. Seen by neuro and recommendations noted as below -- Continue aspirin 81mg daily and plavix 75mg daily -- q2 neuro checks until AM, repeat head CT tomorrow AM -- Therapy evals -- Tylenol scheduled for headache -- Can try 1g IV magnesium BID for headache -- Avoid narcotics/toradol for headache -- Holter monitor/zio patch as an outpatient -- Neuro follow-up in 4-6 weeks -- Vascular surgery followup for carotid stenosis (not related to current presentation) CAD History of CABG x4 hx of s/p TAVR pt on asa, statin, plavix, coreg, torsemide no CP/SOB T2DM hold metformin for 48hrs 2/2 CTA lantus/novolog per protocol Chronic hypoxic resp failure o 2L of O2 at rest and 3.5 with exertion COPD Former tobacco abuse 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 Montana, will need close follow-up as outpatient DVT ppx: sc heparin- ok with chemoprophylaxis per neuro Dispo: Continue current level of care. repeat CT in am. PT/OT eval Updated family at bedside Admission and Anticipated Discharge Date Admission Date: December 29, 2022 Subjective Patient was seen and examined at bedside in presence of family. States he has occipital headache since the stroke. Feels dizzy but no vertigo. No fever, chills, CP, SOB, N/V. Review of Systems Review of Systems: All systems reviewed & are unremarkable except as noted in Subjective Physical Exam Physical Exam: General: Sitting comfortably in bed, not in acute distress, on NC HEENT: EOMI, ASHLEY, MMM Chest: Clear breath sounds bilaterally, no wheezes or crackles CVS: Regular rate and rhythm, normal heart sounds, no murmur Abdomen: Soft, non tender, not distended, normal bowel sounds Neuro: Awake, alert, oriented, conversing well, Left sided finger to nose test with end intention tremors consistent with left cerebellar stroke, right side normal. Extremities: No cyanosis, clubbing or edema Results & Data Results & Data Vital Signs (Past 12 Hours) Vital Signs Temp Pulse Resp BP BP Pulse Ox O2 Del Method 12/30/22 15:26 36.7 C 69 16 146/76 H 97 Nasal Cannula 12/30/22 11:13 36.4 C L 65 17 154/74 H 95 Room Air 12/30/22 08:00 Nasal Cannula 12/30/22 07:05 36.5 C 66 17 168/78 H 92 CPAP O2 Flow Rate 12/30/22 15:26 2 12/30/22 11:13 12/30/22 08:00 2 12/30/22 07:05 Laboratory Results Short CBC 12/30/22 Range/Units 05:27 WBC 7.62 (4.8-10.8) K/ul Hgb 14.2 (14.0-18.0) g/dl Hct 42.9 (42.0-52.0) % Plt Count 146 (130-400) K/uL BMP 12/30/22 05:27 Sodium 142 Potassium 3.5 Chloride 99 Carbon Dioxide 31 BUN 29 H Creatinine 1.03 Glucose 118 H Calcium 9.4 Urine 12/29/22 Range/Units 20:00 Urine Color Yellow Urine Appearance Clear (Clear) Urine pH 5.0 (4.5-7.5) Ur Specific [place] 1.023 (1.000-1.030) Urine Protein Negative (Negative) Urine Glucose (UA) Negative (Negative) Medications Administered Current Inpatient Medications Acetaminophen (Acetaminophen 325 Mg Tab) 650 mg PO Q4H PRN PRN Reason: Pain or Fever Stop: 01/28/23 19:13 Acetaminophen (Acetaminophen 500 Mg Tab) 1,000 mg PO BID [facility] Stop: 01/28/23 20:59 Last Admin: 12/30/22 09:03 Dose: 1,000 mg Al Hydrox/Mg Hydrox/Simethicone (Aluminum/Magnesium Susp 30 Ml Udc) 15 ml PO Q4H PRN PRN Reason: Dyspepsia Stop: 01/28/23 19:13 Aspirin (Aspirin 81 Mg Ectab) [facility] [place]: 01/29/23 08:59 Last Admin: 12/30/22 09:03 Dose: 81 mg Carvedilol (Carvedilol 12.5 Mg Tab) 12.5 mg PO BID [facility] Stop: 01/28/23 20:59 Last Admin: 12/30/22 09:03 Dose: 12.5 mg Clopidogrel Bisulfate (Clopidogrel Bisulfate 75 Mg Tab) 75 mg PO [facility] Stop: 01/29/23 08:59 Last Admin: 12/30/22 09:03 Dose: 75 mg Cyanocobalamin (Cyanocobalamin (B-12) 500 Mcg Tablet) 1,000 mcg PO QAM [facility] Stop: 01/29/23 08:59 Last Admin: 12/30/22 09:02 Dose: 1,000 mcg Dextrose (Dextrose 50% 50 Ml Syringe) 25 - 50 ml IV UD PRN; Protocol PRN Reason: Hypoglycemia Protocol Stop: 01/28/23 19:13 Fluticasone Furoate (Fluticasone Furoate 100mcg 14 Puffs/Inhaler) 1 puffs INH DAILY [facility] Stop: 01/29/23 08:59 Last Admin: 12/30/22 09:02 Dose: 1 puffs Glucagon (Glucagon For Inj 1 Mg Vial) 1 mg SQ UD PRN; Protocol PRN Reason: Hypoglycemia Protocol Stop: 01/28/23 19:13 Glucose (Glucose 10 Tab/Tube) 4 - 8 tab PO UD PRN; Protocol PRN Reason: Hypoglycemia Treatment Stop: 01/28/23 19:13 Glucose (Glucose 40% Gel 15 Gm Tube) 15 - 30 gm PO UD PRN; Protocol PRN Reason: Hypoglycemia Protocol Stop: 01/28/23 19:13 Magnesium Sulfate/Dextrose (Magnesium Sulfate / D5w) 1 gm in 100 mls @ 50 mls/hr IV BID [facility] Stop: 12/30/22 22:59 Last Infusion: 12/30/22 13:31 Dose: Infused Insulin Aspart (Insulin Aspart Per Unit Charge) 0 units SC ACHS [facility] Stop: 01/28/23 19:13 Last Admin: 12/30/22 12:16 Dose: 3 units Insulin Glargine (Lantus Per Unit Charge) 0 units SQ BID [facility] Stop: 01/28/23 20:59 Last Admin: 12/30/22 09:03 Dose: 4 units Levothyroxine Sodium (Levothyroxine Sodium 25 Mcg Tablet) 25 mcg PO DAILYBB [facility] Stop: 01/29/23 06:29 Last Admin: 12/30/22 05:36 Dose: 25 mcg Magnesium Hydroxide (Magnesium Hydroxide Susp 30 Ml Udc) 30 ml PO Q12H PRN PRN Reason: Constipation Stop: 01/28/23 19:13 Magnesium Oxide (Magnesium Oxide 400 Mg Tab) 400 mg PO QAM [facility] Stop: 01/29/23 08:59 Last Admin: 12/30/22 09:02 Dose: 400 mg Miscellaneous (Carbohydrates For Hypoglycemia ) 15 - 30 gm PO UD PRN PRN Reason: Hypoglycemia Protocol Stop: 01/28/23 19:13 Multivitamins (Multivitamin Tab) 1 tab PO QAM [facility] Stop: 01/29/23 08:59 Last Admin: 12/30/22 09:02 Dose: 1 tab Ondansetron HCl (Ondansetron Inj 2 Mg/Ml 2 Ml Vial) 4 mg IV Q6H PRN PRN Reason: Nausea Stop: 01/28/23 19:13 Last Admin: 12/30/22 11:27 Dose: 4 mg Pantoprazole Sodium (Pantoprazole 40 Mg Tab) 40 mg PO QAM [facility] Stop: 01/29/23 08:59 Last Admin: 12/30/22 09:02 Dose: 40 mg Polyethylene Glycol (Polyethylene (Miralax) 17 Gm Pack) 17 gm PO DAILY PRN PRN Reason: Constipation Stop: 01/28/23 19:13 Potassium Chloride (Potassium Chloride 10 Meq Tabcr) 10 meq PO QAM [facility] Stop: 01/29/23 08:59 Last Admin: 12/30/22 09:02 Dose: 10 meq Pregabalin (Pregabalin 75 Mg Cap) 75 mg PO BID [facility] Stop: 01/28/23 20:59 Last Admin: 12/30/22 09:01 Dose: 75 mg Rosuvastatin Calcium (Rosuvastatin Calcium 20 Mg Tab) 40 mg PO QPM [facility] Stop: 01/28/23 20:59 Last Admin: 12/29/22 21:27 Dose: 40 mg Torsemide (Torsemide 20 Mg Tab) 20 mg PO QAM [facility] Stop: 01/29/23 08:59 Last Admin: 12/30/22 09:04 Dose: 20 mg Tramadol HCl (Tramadol Hcl 50 Mg Tablet) 50 mg PO HS PRN PRN Reason: Pain Stop: 01/28/23 19:13 Umeclidinium/Vilanterol (Umeclidinium/Vilanterol 62.5/25mcg 7 Puffs/Inhaler) 1 puffs INH DAILY [facility] Stop: 01/29/23 08:59 Last Admin: 12/30/22 09:02 Dose: 1 puffs (2) Diabetes mellitus Diabetes mellitus complication status: without complication Diabetes mellitus detention insulin use: without detention use Diabetes mellitus type: type 2 Qualified Code(s): E11.9 - Type 2 diabetes mellitus without complications
[2022-12-30] MEDS: ROSUVASTATIN CALCIUM 20 MG TAB PO SCH (20:55)
[2022-12-30] MEDS: HEPARIN SOD 5,000 UNIT/0.5 ML VIAL SQ SCH (20:56)
[2022-12-31] MEDS: LEVOTHYROXINE SODIUM 25 MCG TABLET PO SCH (05:45)
[2022-12-31 07:14] LABS: Basophils # (auto) 0.02 K/uL (0-0.2); Basophils % (auto) 0.3 %; Eosinophils # (auto) 0.11 K/uL (0-0.50); Eosinophils % (auto) 1.7 %; Hematocrit (blood only) 40.5 % (42.0-52.0); Hemoglobin 13.6 g/dl (14.0-18.0); Immature Granulocytes # (auto) 0.01 K/uL (0.01-0.20); Immature Granulocytes % (auto) 0.2 %; Lymphocytes # (auto) 1.76 K/uL (1.2-3.4); Lymphocytes % (auto) 27.8 %; Mean Corpuscular Hemoglobin 29.1 pg (25.0-34.0); Mean Corpuscular Hgb Conc 33.6 g/dL (32.0-36.0); Mean Corpuscular Volume 86.5 fL (80.0-100.0); Mean Platelet Volume 9.6 fL (9.4-12.4); Monocytes # (auto) 0.64 K/uL (0.11-0.59); Monocytes % (auto) 10.1 %; Neutrophils # (auto) 3.79 K/uL (1.40-6.50); Neutrophils % (auto) 59.9 %; Platelet Count 141 K/uL (130-400); RDW Coefficient of Variation 17.2 % (11.5-14.5); RDW Standard Deviation 54.7 fL (36.4-46.3); Red Blood Count 4.68 M/uL (4.70-6.10); White Blood Count 6.33 K/ul (4.8-10.8)
[2022-12-31 07:28] LABS: BUN Creatinine Ratio 34.1 (10-20); Calcium 10.2 mg/dl (8.6-10.3); Creatinine Clr Calc Pharmacy 56.9 ml/min; Est GFR (African American) 88.1 ml/min; Potassium 3.3 mmol/L (3.5-5.1)
[2022-12-31] MEDS: FLUTICASONE FUROATE 100MCG 14 PUFFS/INHALER INH SCH (08:00)
[2022-12-31] MEDS: PANTOprazole 40 MG TAB PO SCH (08:00)
[2022-12-31] MEDS: UMECLIDINIUM/VILANTEROL 62.5/25MCG 7 PUFFS/INHALER INH SCH (08:00)
[2022-12-31] MEDS: CLOPIDOGREL BISULFATE 75 MG TAB PO SCH (08:01)
[2022-12-31] MEDS: ACETAMINOPHEN 500 MG TAB PO SCH ×2 (08:01→21:23)
[2022-12-31] MEDS: CYANOCOBALAMIN (B-12) 500 MCG TABLET PO SCH (08:01)
[2022-12-31] MEDS: ASPIRIN 81 MG ECTAB PO SCH (08:02)
[2022-12-31] MEDS: MULTIVITAMIN TAB PO SCH (08:02)
[2022-12-31] MEDS: TORSEMIDE 20 MG TAB PO SCH (08:02)
[2022-12-31] MEDS: MAGNESIUM OXIDE 400 MG TAB PO SCH (08:02)
[2022-12-31] MEDS: carvediloL 12.5 MG TAB PO SCH ×2 (08:02→21:22)
[2022-12-31] MEDS: HEPARIN SOD 5,000 UNIT/0.5 ML VIAL SQ SCH (08:03)
[2022-12-31] MEDS: LANTUS PER UNIT CHARGE SQ SCH ×2 (08:08→21:30)
[2022-12-31] MEDS: INSULIN ASPART PER UNIT CHARGE SC SCH ×4 (08:09→21:30)
[2022-12-31] MEDS: PREGABALIN 75 MG CAP PO SCH ×2 (08:09→21:28)
[2022-12-31] MEDS: POTASSIUM CHLORIDE CRTAB 20 MEQ TABCR PO SCH (08:09)
[2022-12-31] MEDS: MAGNESIUM SULFATE / D5W 1 GM/100 ML BAG IV SCH ×2 (09:48→21:23)
--- NOTE | 2022-12-31 10:39 | CT Scan Report ---
CT head/brain wo con CLINICAL HISTORY: follow up on stroke Technique: Contiguous axial CT images of the head were acquired from the base of the skull to the adrián jenelle without intravenous contrast administration. Images were viewed in brain, subdural and bone windo ws. Automated dose lowering techniques and/or adjustment according to patient size were utilized for this exam. Comparison: Comparison is made to CTA head and neck 12/29/2022 Findings: There is chronic encephalomalacia in the right parietal lobe as well as diffuse volume loss. Left ce rebellar early subacute infarct is seen with edema and mild left midline shift, no herniation or hemo rrhage is seen. Imaged portions of the paranasal sinuses and mastoid air cells are clear. The orbits appear normal. There are no acute fractures of the calvaria or scalp swelling. Impression: Redemonstration of early subacute left cerebellar infarct with edema but no hemorrhagic transformatio n. Chronic findings are seen. ACT 112: Negative or not required by law. Electronically signed by: Warren Latham M.D. 12/31/2022 10:37 AM
--- NOTE | 2022-12-31 10:55 | Communication Note ---
Date of Service: December 31, 2022 Neurology Update: CT Head continues to show the large L cerebellar subacute stroke, no change in mass effect today which is encouraging. He should remain on aspirin and plavix. Would arrange for zio patch as an outpatient and a repeat echo given the poor quality study obtained while inpatient. Otherwise can work toward dispo planning and liberalize neuro checks.
--- NOTE | 2022-12-31 11:17 | Hospitalist Progress Note ---
Date of Service December 31, 2022 Assessment & Plan (1) Acute CVA (cerebrovascular accident): (2) Diabetes mellitus: (3) CAD (coronary artery disease): (4) Peripheral artery disease: (5) ERINN (obstructive sleep apnea): (6) HTN (hypertension): Plan This is an 87-year-old male who has significant past medical history of chronic respiratory failure with hypoxia, COPD, ERINN on CPAP, T2DM, HTN, chronic diastolic CHF, bicuspid aortic valve, history of TAVR, CAD with hx of CABG x 4 with atherosclerosis of bypass vessels, peripheral vascular disease status post R common femoral endarterectomy, B/L common iliac stenting, carotid artery stenosis s/p b/l thromboendarterectomy w/ patch, GERD, pneumoconiosis, BPH, chronic back pain, history of tobacco abuse who presents ED secondary to feeling x2 days. MRI brain Findings concerning for acute ischemic injury in the left cerebellum with extensive cytotoxic edema, without evidence of hemorrhagic transformation. Multiple remote ischemic injuries of the cerebellum. Moderate nonspecific white matter changes. Moderate ventriculomegaly CTA head/neck 1. 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 2. Likely hemodynamically significant stenosis of the right internal carotid artery. Echo- EF 55-60%, RA,RV and LA not well visualized, mod concentric LVF, s/p KARLOS with normal gradient Tele- sinus rhythm Acute left superior cerebellar CVA - Imagings reviewed as above. Seen by neuro and recommendations noted. -Patient had repeat CT head today which showed stable findings with no hemorrhagic transformation -Communicated with neurology and reviewed recommendations -- Continue aspirin 81mg daily and plavix 75mg daily, and high intensity statin -- Liberalize neurochecks --Holter monitor/zio patch as an outpatient- Spoke with cardio who will arrange the monitor once discharged. Continue tele in house -- Repeat echo as OP with cardio -- PT OT recommends rehab- CM following -- Continue Tylenol for headache. Tramadol prn if severe. 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 [place], will need close follow-up as outpatient Hypokalemia- Repleted, recheck in am DVT ppx: sc heparin Dispo: PT OT recommends rehab. Stable for discharge to rehab. Awaiting insurance authorization and bed availability Updated family at bedside Admission and Anticipated Discharge Date Admission Date: December 29, 2022 Subjective Patient was seen and examined at bedside in presence of family. He still has some headache, slightly improved. Otherwise he is doing better per family. No fever, chills, chest pain or shortness of breath or nausea or vomiting. Voiding without issues. Review of Systems Review of Systems: All systems reviewed & are unremarkable except as noted in Subjective Physical Exam Physical Exam: General: Lying comfortably in bed, not in acute distress, on NC HEENT: EOMI, ASHLEY, MMM Chest: Clear breath sounds bilaterally, no wheezes or crackles CVS: Regular rate and rhythm, normal heart sounds, no murmur Abdomen: Soft, non tender, not distended, normal bowel sounds Neuro: Awake, alert, oriented, not conversing much, no new neurological S/S Extremities: No cyanosis, clubbing or edema Results & Data Results & Data Vital Signs (Past 12 Hours) Vital Signs Temp Pulse Pulse Resp BP Pulse Ox O2 Del Method 12/31/22 08:00 61 12/31/22 07:31 36.5 C 61 19 144/70 H 97 Nasal Cannula 12/31/22 04:10 36.9 C 65 18 170/77 H 96 Nasal Cannula 12/30/22 23:42 36.5 C 65 18 150/76 H 95 Room Air O2 Flow Rate 12/31/22 08:00 12/31/22 07:31 2 12/31/22 04:10 2 12/30/22 23:42 Laboratory Results Short CBC 12/31/22 Range/Units 05:40 WBC 6.33 (4.8-10.8) K/ul Hgb 13.6 L (14.0-18.0) g/dl Hct 40.5 L (42.0-52.0) % Plt Count 141 (130-400) K/uL BMP 12/31/22 05:40 Sodium 141 Potassium 3.3 L Chloride 99 Carbon Dioxide 31 BUN 31 H Creatinine 0.91 Glucose 132 H Calcium 10.2 Medications Administered Current Inpatient Medications Acetaminophen (Acetaminophen 325 Mg Tab) 650 mg PO Q4H PRN PRN Reason: Pain or Fever Stop: 01/28/23 19:13 Acetaminophen (Acetaminophen 500 Mg Tab) 1,000 mg PO BID [facility] Stop: 01/28/23 20:59 Last Admin: 12/31/22 08:01 Dose: 1,000 mg Al Hydrox/Mg Hydrox/Simethicone (Aluminum/Magnesium Susp 30 Ml Udc) 15 ml PO Q4H PRN PRN Reason: Dyspepsia Stop: 01/28/23 19:13 Aspirin (Aspirin 81 Mg Ectab) 81 mg PO QAM [facility] Stop: 01/29/23 08:59 Last Admin: 12/31/22 08:02 Dose: 81 mg Carvedilol (Carvedilol 12.5 Mg Tab) 12.5 mg PO BID [facility] Stop: 01/28/23 20:59 Last Admin: 12/31/22 08:02 Dose: 12.5 mg Clopidogrel Bisulfate (Clopidogrel Bisulfate 75 Mg Tab) 75 mg PO QAM [facility] Stop: 01/29/23 08:59 Last Admin: 12/31/22 08:01 Dose: 75 mg Cyanocobalamin (Cyanocobalamin (B-12) 500 Mcg Tablet) 1,000 mcg PO QAM [facility] Stop: 01/29/23 08:59 Last Admin: 12/31/22 08:01 Dose: 1,000 mcg Dextrose (Dextrose 50% 50 Ml Syringe) 25 - 50 ml IV UD PRN; Protocol PRN Reason: Hypoglycemia Protocol Stop: 01/28/23 19:13 Fluticasone Furoate (Fluticasone Furoate 100mcg 14 Puffs/Inhaler) 1 puffs INH DAILY [facility] Stop: 01/29/23 08:59 Last Admin: 12/31/22 08:00 Dose: 1 puffs Glucagon (Glucagon For Inj 1 Mg Vial) 1 mg SQ UD PRN; Protocol PRN Reason: Hypoglycemia Protocol Stop: 01/28/23 19:13 Glucose (Glucose 10 Tab/Tube) 4 - 8 tab PO UD PRN; Protocol PRN Reason: Hypoglycemia Treatment Stop: 01/28/23 19:13 Glucose (Glucose 40% Gel 15 Gm Tube) 15 - 30 gm PO UD PRN; Protocol PRN Reason: Hypoglycemia Protocol Stop: 01/28/23 19:13 Heparin Sodium (Porcine) (Heparin Sod 5,000 Unit/0.5 Ml Vial) 5,000 units SQ Q12 [facility] Stop: 01/29/23 20:59 Last Admin: 12/31/22 08:03 Dose: 5,000 units Magnesium Sulfate/Dextrose (Magnesium Sulfate / D5w) 1 gm in 100 mls @ 50 mls/hr IV BID [facility] Stop: 12/31/22 22:59 Last Admin: 12/31/22 09:48 Dose: 50 mls/hr Insulin Aspart (Insulin Aspart Per Unit Charge) 0 units SC ACHS [facility] Stop: 01/28/23 19:13 Last Admin: 12/31/22 08:09 Dose: 4 units Insulin Glargine (Lantus Per Unit Charge) 0 units SQ BID [facility] Stop: 01/28/23 20:59 Last Admin: 12/31/22 08:08 Dose: 4 units Levothyroxine Sodium (Levothyroxine Sodium 25 Mcg Tablet) 25 mcg PO DAILYBB [facility] Stop: 01/29/23 06:29 Last Admin: 12/31/22 05:45 Dose: 25 mcg Magnesium Hydroxide (Magnesium Hydroxide Susp 30 Ml Udc) 30 ml PO Q12H PRN PRN Reason: Constipation Stop: 01/28/23 19:13 Magnesium Oxide (Magnesium Oxide 400 Mg Tab) 400 mg PO QAM [facility] Stop: 01/29/23 08:59 Last Admin: 12/31/22 08:02 Dose: 400 mg Miscellaneous (Carbohydrates For Hypoglycemia ) 15 - 30 gm PO UD PRN PRN Reason: Hypoglycemia Protocol Stop: 01/28/23 19:13 Multivitamins (Multivitamin Tab) 1 tab PO QAM [facility] Stop: 01/29/23 08:59 Last Admin: 12/31/22 08:02 Dose: 1 tab Ondansetron HCl (Ondansetron Inj 2 Mg/Ml 2 Ml Vial) 4 mg IV Q6H PRN PRN Reason: Nausea Stop: 01/28/23 19:13 Last Admin: 12/30/22 11:27 Dose: 4 mg Pantoprazole Sodium (Pantoprazole 40 Mg Tab) 40 mg PO QAM [facility] Stop: 01/29/23 08:59 Last Admin: 12/31/22 08:00 Dose: 40 mg Polyethylene Glycol (Polyethylene (Miralax) 17 Gm Pack) 17 gm PO DAILY PRN PRN Reason: Constipation Stop: 01/28/23 19:13 Potassium Chloride (Potassium Chloride Crtab 20 Meq Tabcr) 40 meq PO QAM [facility] Stop: 01/30/23 08:59 Last Admin: 12/31/22 08:09 Dose: 40 meq Pregabalin (Pregabalin 75 Mg Cap) 75 mg PO BID [facility] Stop: 01/28/23 20:59 Last Admin: 12/31/22 08:09 Dose: 75 mg Rosuvastatin Calcium (Rosuvastatin Calcium 20 Mg Tab) 40 mg PO QPM [facility] Stop: 01/28/23 20:59 Last Admin: 12/30/22 20:55 Dose: 40 mg Torsemide (Torsemide 20 Mg Tab) 20 mg PO QAM [facility] Stop: 01/29/23 08:59 Last Admin: 12/31/22 08:02 Dose: 20 mg Umeclidinium/Vilanterol (Umeclidinium/Vilanterol 62.5/25mcg 7 Puffs/Inhaler) 1 puffs INH DAILY [facility] Stop: 01/29/23 08:59 Last Admin: 12/31/22 08:00 Dose: 1 puffs (2) Diabetes mellitus Diabetes mellitus complication status: without complication Diabetes mellitus long-term insulin use: 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
[2022-12-31] MEDS: ONDANSETRON INJ 2 MG/ML 2 ML VIAL IV PRN (11:52)
[2022-12-31] MEDS: ROSUVASTATIN CALCIUM 20 MG TAB PO SCH (21:17)
[2022-12-31] MEDS: ENOXAPARIN INJ 40 MG/0.4 ML SYR SQ SCH (21:23)
[2023-01-01] MEDS: ONDANSETRON INJ 2 MG/ML 2 ML VIAL IV PRN (01:50)
[2023-01-01 06:09] LABS: BUN Creatinine Ratio 29.1 (10-20); Calcium 10.1 mg/dl (8.6-10.3); Creatinine Clr Calc Pharmacy 60.2 ml/min; Est GFR (Non-African American) 78.5 ml/min; Potassium 3.8 mmol/L (3.5-5.1)
[2023-01-01 06:17] LABS: Basophils # (auto) 0.02 K/uL (0-0.2); Basophils % (auto) 0.3 %; Eosinophils # (auto) 0.12 K/uL (0-0.50); Eosinophils % (auto) 1.9 %; Hematocrit (blood only) 39.6 % (42.0-52.0); Hemoglobin 13.3 g/dl (14.0-18.0); Immature Granulocytes # (auto) 0.01 K/uL (0.01-0.20); Immature Granulocytes % (auto) 0.2 %; Lymphocytes # (auto) 1.72 K/uL (1.2-3.4); Lymphocytes % (auto) 27.5 %; Mean Corpuscular Hgb Conc 33.6 g/dL (32.0-36.0); Mean Corpuscular Volume 86.5 fL (80.0-100.0); Mean Platelet Volume 9.7 fL (9.4-12.4); Monocytes # (auto) 0.59 K/uL (0.11-0.59); Monocytes % (auto) 9.4 %; Neutrophils # (auto) 3.79 K/uL (1.40-6.50); Neutrophils % (auto) 60.7 %; Platelet Count 148 K/uL (130-400); RDW Coefficient of Variation 16.8 % (11.5-14.5); RDW Standard Deviation 53.1 fL (36.4-46.3); Red Blood Count 4.58 M/uL (4.70-6.10); White Blood Count 6.25 K/ul (4.8-10.8)
[2023-01-01] MEDS: LEVOTHYROXINE SODIUM 25 MCG TABLET PO SCH (06:47)
[2023-01-01] MEDS: CYANOCOBALAMIN (B-12) 500 MCG TABLET PO SCH (08:21)
[2023-01-01] MEDS: CLOPIDOGREL BISULFATE 75 MG TAB PO SCH (08:21)
[2023-01-01] MEDS: carvediloL 12.5 MG TAB PO SCH ×2 (08:21→21:31)
[2023-01-01] MEDS: TORSEMIDE 20 MG TAB PO SCH (08:21)
[2023-01-01] MEDS: MULTIVITAMIN TAB PO SCH (08:21)
[2023-01-01] MEDS: PANTOprazole 40 MG TAB PO SCH (08:21)
[2023-01-01] MEDS: FLUTICASONE FUROATE 100MCG 14 PUFFS/INHALER INH SCH (08:22)
[2023-01-01] MEDS: POTASSIUM CHLORIDE CRTAB 20 MEQ TABCR PO SCH (08:22)
[2023-01-01] MEDS: ACETAMINOPHEN 500 MG TAB PO SCH ×3 (08:22→21:31)
[2023-01-01] MEDS: ASPIRIN 81 MG ECTAB PO SCH (08:22)
[2023-01-01] MEDS: UMECLIDINIUM/VILANTEROL 62.5/25MCG 7 PUFFS/INHALER INH SCH (08:22)
[2023-01-01] MEDS: LANTUS PER UNIT CHARGE SQ SCH ×2 (08:31→21:25)
[2023-01-01] MEDS: PREGABALIN 75 MG CAP PO SCH ×2 (08:31→21:31)
[2023-01-01] MEDS: INSULIN ASPART PER UNIT CHARGE SC SCH ×4 (08:31→21:25)
[2023-01-01] MEDS ORDERED: ALUMINUM/MAGNESIUM SUSP 30 ML UDC PO ONE (09:35)
[2023-01-01] MEDS ORDERED: traMADol HCL 50 MG TABLET PO ONE (09:35)
[2023-01-01] MEDS ORDERED: hydrALAZINE HCL 20 MG/ML VIAL IV PRN (12:03)
[2023-01-01] MEDS ORDERED: KETOROLAC TROMETHAMINE 15 MG/ML VIAL IV ONE (12:10)
--- NOTE | 2023-01-01 14:50 | Hospitalist Progress Note ---
Date of Service January 01, 2023 Assessment & Plan (1) Acute CVA (cerebrovascular accident): (2) Diabetes mellitus: (3) CAD (coronary artery disease): (4) Peripheral artery disease: (5) ERINN (obstructive sleep apnea): (6) HTN (hypertension): Plan This is an 87-year-old male who has significant past medical history of chronic respiratory failure with hypoxia, COPD, ERINN on CPAP, T2DM, HTN, chronic diastolic CHF, bicuspid aortic valve, history of TAVR, CAD with hx of CABG x 4 with atherosclerosis of bypass vessels, peripheral vascular disease status post R common femoral endarterectomy, B/L common iliac stenting, carotid artery stenosis s/p b/l thromboendarterectomy w/ patch, GERD, pneumoconiosis, BPH, chronic back pain, history of tobacco abuse who presents ED secondary to feeling x2 days. MRI brain Findings concerning for acute ischemic injury in the left cerebellum with extensive cytotoxic edema, without evidence of hemorrhagic transformation. Multiple remote ischemic injuries of the cerebellum. Moderate nonspecific white matter changes. Moderate ventriculomegaly CTA head/neck 1. 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 2. Likely hemodynamically significant stenosis of the right internal carotid artery. Echo- EF 55-60%, RA,RV and LA not well visualized, mod concentric LVF, s/p KARLOS with normal gradient Tele- sinus rhythm Acute left superior cerebellar CVA - Imagings reviewed as above. Seen by neuro and recommendations noted. -Patient had repeat CT head today which showed stable findings with no hemorrhagic transformation -Communicated with neurology and reviewed recommendations -- Continue aspirin 81mg daily and plavix 75mg daily, and high intensity statin -- Liberalize neurochecks --Holter monitor/zio patch as an outpatient- Spoke with cardio who will arrange the monitor once discharged. Continue tele in house -- Repeat echo as OP with cardio -- PT OT recommends rehab- CM following -- Continue Tylenol for headache. Tramadol prn if severe. 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 [place], will need close follow-up as outpatient Hypokalemia- Resolved DVT ppx: sc heparin Dispo: PT OT recommends rehab. Stable for discharge to rehab. Awaiting insurance authorization and bed availability Updated family at bedside Admission and Anticipated Discharge Date Admission Date: December 29, 2022 Subjective Seen and examined at bedside this morning, and again later in the day with sonja y at bedside. He was having headache this morning but had improved with medication. Had some nausea and epigastric pain this morning. Appetite little poor. No fever, chills, chest pain, shortness of breath. Review of Systems Review of Systems: All systems reviewed & are unremarkable except as noted in Subjective Physical Exam Physical Exam: General: Lying comfortably in bed, not in acute distress, on NC HEENT: EOMI, ASHLEY, MMM Chest: Clear breath sounds bilaterally, no wheezes or crackles CVS: Regular rate and rhythm, normal heart sounds, no murmur Abdomen: Soft, non tender, not distended, normal bowel sounds Neuro: Awake, alert, oriented, not conversing much, Left sided finger nose test with past pointing, dysmetria and end intention tremors. No new neurological S/S Extremities: No cyanosis, clubbing or edema Results & Data Results & Data Vital Signs (Past 12 Hours) Vital Signs Temp Pulse Pulse Resp BP BP Pulse Ox 01/01/23 13:05 162/72 H 01/01/23 12:34 179/78 H 01/01/23 12:00 36.0 C L 61 18 206/82 H 97 01/01/23 08:00 60 01/01/23 08:00 01/01/23 08:15 36.5 C 55 L 20 189/77 H 97 01/01/23 04:01 36.5 C 61 18 154/74 H 95 O2 Del Method O2 Flow Rate 01/01/23 13:05 01/01/23 12:34 01/01/23 12:00 Nasal Cannula 1.5 01/01/23 08:00 01/01/23 08:00 Nasal Cannula 2 01/01/23 08:15 Nasal Cannula 1.5 01/01/23 04:01 CPAP Laboratory Results Short CBC 01/01/23 Range/Units 05:20 WBC 6.25 (4.8-10.8) K/ul Hgb 13.3 L (14.0-18.0) g/dl Hct 39.6 L (42.0-52.0) % Plt Count 148 (130-400) K/uL BMP 01/01/23 05:20 Sodium 141 Potassium 3.8 Chloride 100 Carbon Dioxide 33 H BUN 25 H Creatinine 0.86 Glucose 148 H Calcium 10.1 Medications Administered Current Inpatient Medications Acetaminophen (Acetaminophen 500 Mg Tab) 1,000 mg PO Q8 [facility]NA Stop: 01/31/23 13:59 Last Admin: 01/01/23 14:34 Dose: 1,000 mg Al Hydrox/Mg Hydrox/Simethicone (Aluminum/Magnesium Susp 30 Ml Udc) 15 ml PO Q4H PRN PRN Reason: Dyspepsia Stop: 01/28/23 19:13 Aspirin (Aspirin 81 Mg Ectab) 81 mg PO QAM [facility] Stop: 01/29/23 08:59 Last Admin: 01/01/23 08:22 Dose: 81 mg Carvedilol (Carvedilol 12.5 Mg Tab) 12.5 mg PO BID [facility] Stop: 01/28/23 20:59 Last Admin: 01/01/23 08:21 Dose: 12.5 mg Clopidogrel Bisulfate (Clopidogrel Bisulfate 75 Mg Tab) 75 mg PO QAM [facility] Stop: 01/29/23 08:59 Last Admin: 01/01/23 08:21 Dose: 75 mg Cyanocobalamin (Cyanocobalamin (B-12) 500 Mcg Tablet) 1,000 mcg PO QAM [facility] Stop: 01/29/23 08:59 Last Admin: 01/01/23 08:21 Dose: 1,000 mcg Dextrose (Dextrose 50% 50 Ml Syringe) 25 - 50 ml IV UD PRN; Protocol PRN Reason: Hypoglycemia Protocol Stop: 01/28/23 19:13 Enoxaparin Sodium (Enoxaparin Inj 40 Mg/0.4 Ml Syr) 40 mg SQ HS UNA Stop: 01/30/23 20:59 Last Admin: 12/31/22 21:23 Dose: 40 mg Fluticasone Furoate (Fluticasone Furoate 100mcg 14 Puffs/Inhaler) 1 puffs INH DAILY [facility] Stop: 01/29/23 08:59 Last Admin: 01/01/23 08:22 Dose: 1 puffs Glucagon (Glucagon For Inj 1 Mg Vial) 1 mg SQ UD PRN; Protocol PRN Reason: Hypoglycemia Protocol Stop: 01/28/23 19:13 Glucose (Glucose 10 Tab/Tube) 4 - 8 tab PO UD PRN; Protocol PRN Reason: Hypoglycemia Treatment Stop: 01/28/23 19:13 Glucose (Glucose 40% Gel 15 Gm Tube) 15 - 30 gm PO UD PRN; Protocol PRN Reason: Hypoglycemia Protocol Stop: 01/28/23 19:13 Hydralazine HCl (Hydralazine Hcl 20 Mg/Ml Vial) 10 mg IV Q4H PRN PRN Reason: Give for SBP>160 or DBP >110 Stop: 01/31/23 12:02 Last Admin: 01/01/23 12:10 Dose: 10 mg Insulin Aspart (Insulin Aspart Per Unit Charge) 0 units SC ACHS UNA Stop: 01/28/23 19:13 Last Admin: 01/01/23 12:31 Dose: 1 units Insulin Glargine (Lantus Per Unit Charge) 0 units SQ BID [facility]NA Stop: 01/28/23 20:59 Last Admin: 01/01/23 08:31 Dose: 4 units Levothyroxine Sodium (Levothyroxine Sodium 25 Mcg Tablet) 25 mcg PO DAILYBB [facility]NA Stop: 01/29/23 06:29 Last Admin: 01/01/23 06:47 Dose: 25 mcg Magnesium Hydroxide (Magnesium Hydroxide Susp 30 Ml Udc) 30 ml PO Q12H PRN PRN Reason: Constipation Stop: 01/28/23 19:13 Magnesium Oxide (Magnesium Oxide 400 Mg Tab) 400 mg PO QAM UNA Stop: 01/29/23 08:59 Last Admin: 12/31/22 08:02 Dose: 400 mg Miscellaneous (Carbohydrates For Hypoglycemia ) 15 - 30 gm PO UD PRN PRN Reason: Hypoglycemia Protocol Stop: 01/28/23 19:13 Multivitamins (Multivitamin Tab) 1 tab PO QAM UNA Stop: 01/29/23 08:59 Last Admin: 01/01/23 08:21 Dose: 1 tab Ondansetron HCl (Ondansetron Inj 2 Mg/Ml 2 Ml Vial) 4 mg IV Q6H PRN PRN Reason: Nausea Stop: 01/28/23 19:13 Last Admin: 01/01/23 01:50 Dose: 4 mg Pantoprazole Sodium (Pantoprazole 40 Mg Tab) 40 mg PO QAM [facility] Stop: 01/29/23 08:59 Last Admin: 01/01/23 08:21 Dose: 40 mg Polyethylene Glycol (Polyethylene (Miralax) 17 Gm Pack) 17 gm PO DAILY PRN PRN Reason: Constipation Stop: 01/28/23 19:13 Potassium Chloride (Potassium Chloride Crtab 20 Meq Tabcr) 40 meq PO QAM [facility] Stop: 01/30/23 08:59 Last Admin: 01/01/23 08:22 Dose: 40 meq Pregabalin (Pregabalin 75 Mg Cap) 75 mg PO BID [facility] Stop: 01/28/23 20:59 Last Admin: 01/01/23 08:31 Dose: 75 mg Rosuvastatin Calcium (Rosuvastatin Calcium 20 Mg Tab) 40 mg PO QPM [facility]NA Stop: 01/28/23 20:59 Last Admin: 12/31/22 21:17 Dose: 40 mg Torsemide (Torsemide 20 Mg Tab) 20 mg PO QAM [facility]NA Stop: 01/29/23 08:59 Last Admin: 01/01/23 08:21 Dose: 20 mg Umeclidinium/Vilanterol (Umeclidinium/Vilanterol 62.5/25mcg 7 Puffs/Inhaler) 1 puffs INH DAILY [facility] Stop: 01/29/23 08:59 Last Admin: 01/01/23 08:22 Dose: 1 puffs (2) Diabetes mellitus Diabetes mellitus complication status: without complication Diabetes mellitus detention insulin use: without detention use Diabetes mellitus type: type 2 Qualified Code(s): E11.9 - Type 2 diabetes mellitus without complications
[2023-01-01] MEDS ORDERED: KETOROLAC TROMETHAMINE 15 MG/ML VIAL IV PRN (17:13)
[2023-01-01] MEDS: ROSUVASTATIN CALCIUM 20 MG TAB PO SCH (21:30)
[2023-01-01] MEDS: ENOXAPARIN INJ 40 MG/0.4 ML SYR SQ SCH (21:30)
[2023-01-02] MEDS: ACETAMINOPHEN 500 MG TAB PO SCH ×3 (06:40→22:35)
[2023-01-02] MEDS: LEVOTHYROXINE SODIUM 25 MCG TABLET PO SCH (06:40)
[2023-01-02] MEDS: MULTIVITAMIN TAB PO SCH (08:18)
[2023-01-02] MEDS: CLOPIDOGREL BISULFATE 75 MG TAB PO SCH (08:18)
[2023-01-02] MEDS: PANTOprazole 40 MG TAB PO SCH (08:18)
[2023-01-02] MEDS: POTASSIUM CHLORIDE CRTAB 20 MEQ TABCR PO SCH (08:18)
[2023-01-02] MEDS: TORSEMIDE 20 MG TAB PO SCH (08:18)
[2023-01-02] MEDS: CYANOCOBALAMIN (B-12) 500 MCG TABLET PO SCH (08:18)
[2023-01-02] MEDS: carvediloL 12.5 MG TAB PO SCH ×2 (08:18→22:30)
[2023-01-02] MEDS: ASPIRIN 81 MG ECTAB PO SCH (08:18)
[2023-01-02] MEDS: UMECLIDINIUM/VILANTEROL 62.5/25MCG 7 PUFFS/INHALER INH SCH (08:21)
[2023-01-02] MEDS: FLUTICASONE FUROATE 100MCG 14 PUFFS/INHALER INH SCH (08:21)
[2023-01-02] MEDS: INSULIN ASPART PER UNIT CHARGE SC SCH ×4 (08:26→22:42)
[2023-01-02] MEDS: LANTUS PER UNIT CHARGE SQ SCH ×2 (08:26→22:43)
[2023-01-02] MEDS: PREGABALIN 75 MG CAP PO SCH ×2 (08:29→22:42)
--- NOTE | 2023-01-02 11:06 | Hospitalist Progress Note ---
Date of Service January 02, 2023 Assessment & Plan (1) Acute CVA (cerebrovascular accident): (2) Diabetes mellitus: (3) CAD (coronary artery disease): (4) Peripheral artery disease: (5) ERINN (obstructive sleep apnea): (6) HTN (hypertension): Plan This is an 87-year-old male who has significant past medical history of chronic respiratory failure with hypoxia, COPD, ERINN on CPAP, T2DM, HTN, chronic diastolic CHF, bicuspid aortic valve, history of TAVR, CAD with hx of CABG x 4 with atherosclerosis of bypass vessels, peripheral vascular disease status post R common femoral endarterectomy, B/L common iliac stenting, carotid artery stenosis s/p b/l thromboendarterectomy w/ patch, GERD, pneumoconiosis, BPH, chronic back pain, history of tobacco abuse who presents ED secondary to feeling x2 days. MRI brain Findings concerning for acute ischemic injury in the left cerebellum with extensive cytotoxic edema, without evidence of hemorrhagic transformation. Multiple remote ischemic injuries of the cerebellum. Moderate nonspecific white matter changes. Moderate ventriculomegaly CTA head/neck 1. 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 2. Likely hemodynamically significant stenosis of the right internal carotid artery. Echo- EF 55-60%, RA,RV and LA not well visualized, mod concentric LVF, s/p KARLOS with normal gradient Tele- sinus rhythm Acute left superior cerebellar CVA - Imagings reviewed as above. Seen by neuro and recommendations noted. -Patient had repeat CT head today which showed stable findings with no hemorrhagic transformation -Communicated with neurology and reviewed recommendations -- Continue aspirin 81mg daily and plavix 75mg daily, and high intensity statin -- Liberalize neurochecks --Holter monitor/zio patch as an outpatient- Spoke with cardio who will arrange the monitor once discharged. Continue tele in house -- Repeat echo as OP with cardio -- PT OT recommends rehab- CM following -- Neuro follow-up in 4-6 weeks -- Vascular surgery followup for carotid stenosis (not related to current presentation) - His headache is much improved today. Continue Tylenol, avoid tramadol or opioids as patient did not tolerate tramadol yesterday. 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 Montana, will need close follow-up as outpatient Hypokalemia- Resolved DVT ppx: sc heparin Dispo: PT OT recommends rehab. Stable for discharge to rehab. Awaiting insurance authorization and bed availability Updated family at bedside Admission and Anticipated Discharge Date Admission Date: December 29, 2022 Subjective Patient was seen and examined at bedside in presence of family. States he is doing much better compared to yesterday. His headache is much improved. States it feels okay now. Denies any abdominal pain or nausea today. He ate his breakfast today. He did well with physical therapy yesterday. Review of Systems Review of Systems: All systems reviewed & are unremarkable except as noted in Subjective Physical Exam Physical Exam: General: Lying comfortably in bed, not in acute distress, on NC HEENT: EOMI, ASHLEY, MMM Chest: Clear breath sounds bilaterally, no wheezes or crackles CVS: Regular rate and rhythm, normal heart sounds, no murmur Abdomen: Soft, non tender, not distended, normal bowel sounds Neuro: Awake, alert, oriented, conversing appropriately, No new neurological S/S Extremities: No cyanosis, clubbing or edema Results & Data Results & Data Vital Signs (Past 12 Hours) Vital Signs Temp Pulse Pulse Resp BP Pulse Ox O2 Del Method 01/02/23 08:44 54 L 01/02/23 07:36 36.5 C 60 18 177/73 H 96 Nasal Cannula 01/02/23 03:42 36.4 C L 53 L 18 112/65 95 CPAP 01/02/23 00:00 60 O2 Flow Rate 01/02/23 08:44 01/02/23 07:36 2 01/02/23 03:42 01/02/23 00:00 Medications Administered Current Inpatient Medications Acetaminophen (Acetaminophen 500 Mg Tab) 1,000 mg PO Q8 [facility] Stop: 01/31/23 13:59 Last Admin: 01/02/23 06:40 Dose: 1,000 mg Al Hydrox/Mg Hydrox/Simethicone (Aluminum/Magnesium Susp 30 Ml Udc) 15 ml PO Q4H PRN PRN Reason: Dyspepsia Stop: 01/28/23 19:13 Aspirin (Aspirin 81 Mg Ectab) 81 mg PO QAM [facility] Stop: 01/29/23 08:59 Last Admin: 01/02/23 08:18 Dose: 81 mg Carvedilol (Carvedilol 12.5 Mg Tab) 12.5 mg PO BID [facility] Stop: 01/28/23 20:59 Last Admin: 01/02/23 08:18 Dose: 12.5 mg Clopidogrel Bisulfate (Clopidogrel Bisulfate 75 Mg Tab) [facility]: 01/29/23 08:59 Last Admin: 01/02/23 08:18 Dose: 75 mg Cyanocobalamin (Cyanocobalamin (B-12) 500 Mcg Tablet) 1,000 mcg PO QAM [facility] Stop: 01/29/23 08:59 Last Admin: 01/02/23 08:18 Dose: 1,000 mcg Dextrose (Dextrose 50% 50 Ml Syringe) 25 - 50 ml IV UD PRN; Protocol PRN Reason: Hypoglycemia Protocol Stop: 01/28/23 19:13 Enoxaparin Sodium (Enoxaparin Inj 40 Mg/0.4 Ml Syr) 40 mg SQ HS [facility] Stop: 01/30/23 20:59 Last Admin: 01/01/23 21:30 Dose: 40 mg Fluticasone Furoate (Fluticasone Furoate 100mcg 14 Puffs/Inhaler) 1 puffs INH DAILY [facility] Stop: 01/29/23 08:59 Last Admin: 01/02/23 08:21 Dose: 1 puffs Glucagon (Glucagon For Inj 1 Mg Vial) 1 mg SQ UD PRN; Protocol PRN Reason: Hypoglycemia Protocol Stop: 01/28/23 19:13 Glucose (Glucose 10 Tab/Tube) 4 - 8 tab PO UD PRN; Protocol PRN Reason: Hypoglycemia Treatment Stop: 01/28/23 19:13 Glucose (Glucose 40% Gel 15 Gm Tube) 15 - 30 gm PO UD PRN; Protocol PRN Reason: Hypoglycemia Protocol Stop: 01/28/23 19:13 Hydralazine HCl (Hydralazine Hcl 20 Mg/Ml Vial) 10 mg IV Q4H PRN PRN Reason: Give for SBP>160 or DBP >110 Stop: 01/31/23 12:02 Last Admin: 01/01/23 12:10 Dose: 10 mg Insulin Aspart (Insulin Aspart Per Unit Charge) 0 units SC ACHS [facility] Stop: 01/28/23 19:13 Last Admin: 01/02/23 08:26 Dose: 4 units Insulin Glargine (Lantus Per Unit Charge) 0 units SQ BID [facility] Stop: 01/28/23 20:59 Last Admin: 01/02/23 08:26 Dose: 4 units Ketorolac Tromethamine (Ketorolac Tromethamine 15 Mg/Ml Vial) 10 mg IV DAILY PRN PRN Reason: severe headache Stop: 01/04/23 17:12 Levothyroxine Sodium (Levothyroxine Sodium 25 Mcg Tablet) 25 mcg PO DAILYBB [facility] Stop: 01/29/23 06:29 Last Admin: 01/02/23 06:40 Dose: 25 mcg Magnesium Hydroxide (Magnesium Hydroxide Susp 30 Ml Udc) 30 ml PO Q12H PRN PRN Reason: Constipation Stop: 01/28/23 19:13 Magnesium Oxide (Magnesium Oxide 400 Mg Tab) 400 mg PO [facility] Stop: 01/29/23 08:59 Last Admin: 12/31/22 08:02 Dose: 400 mg Miscellaneous (Carbohydrates For Hypoglycemia ) 15 - 30 gm PO UD PRN PRN Reason: Hypoglycemia Protocol Stop: 01/28/23 19:13 Multivitamins (Multivitamin Tab) [facility] [place]: 01/29/23 08:59 Last Admin: 01/02/23 08:18 Dose: 1 tab Ondansetron HCl (Ondansetron Inj 2 Mg/Ml 2 Ml Vial) 4 mg IV Q6H PRN PRN Reason: Nausea Stop: 01/28/23 19:13 Last Admin: 01/01/23 01:50 Dose: 4 mg Pantoprazole Sodium (Pantoprazole 40 Mg Tab) 40 mg PO QAM [facility] Stop: 01/29/23 08:59 Last Admin: 01/02/23 08:18 Dose: 40 mg Polyethylene Glycol (Polyethylene (Miralax) 17 Gm Pack) 17 gm PO DAILY PRN PRN Reason: Constipation Stop: 01/28/23 19:13 Potassium Chloride (Potassium Chloride Crtab 20 Meq Tabcr) 40 meq PO QAM [facility] Stop: 01/30/23 08:59 Last Admin: 01/02/23 08:18 Dose: 40 meq Pregabalin (Pregabalin 75 Mg Cap) 75 mg PO BID [facility] Stop: 01/28/23 20:59 Last Admin: 01/02/23 08:29 Dose: 75 mg Rosuvastatin Calcium (Rosuvastatin Calcium 20 Mg Tab) 40 mg PO QPM [facility] Stop: 01/28/23 20:59 Last Admin: 01/01/23 21:30 Dose: 40 mg Torsemide (Torsemide 20 Mg Tab) 20 mg PO QAM [facility] Stop: 01/29/23 08:59 Last Admin: 01/02/23 08:18 Dose: 20 mg Umeclidinium/Vilanterol (Umeclidinium/Vilanterol 62.5/25mcg 7 Puffs/Inhaler) 1 puffs INH DAILY [facility] Stop: 01/29/23 08:59 Last Admin: 01/02/23 08:21 Dose: 1 puffs (2) Diabetes mellitus Diabetes mellitus complication status: without complication Diabetes mellitus mcfp insulin use: without mcfp use Diabetes mellitus type: type 2 Qualified Code(s): E11.9 - Type 2 diabetes mellitus without complications
[2023-01-02] MEDS: ENOXAPARIN INJ 40 MG/0.4 ML SYR SQ SCH (22:31)
[2023-01-02] MEDS: ROSUVASTATIN CALCIUM 20 MG TAB PO SCH (22:34)
[2023-01-03] MEDS: NYSTATIN SUSP 500,000 U/5 ML UDC PO SCH ×4 (06:01→20:33)
[2023-01-03] MEDS: MICONAZOLE NITRATE POWDER 85 GM EXT PRN (06:01)
[2023-01-03] MEDS: ACETAMINOPHEN 500 MG TAB PO SCH ×3 (06:02→20:38)
[2023-01-03] MEDS: LEVOTHYROXINE SODIUM 25 MCG TABLET PO SCH (06:03)
[2023-01-03 07:15] LABS: Hematocrit (blood only) 42.3 % (42.0-52.0); Hemoglobin 13.8 g/dl (14.0-18.0); Mean Corpuscular Hemoglobin 28.8 pg (25.0-34.0); Mean Corpuscular Hgb Conc 32.6 g/dL (32.0-36.0); Mean Corpuscular Volume 88.3 fL (80.0-100.0); Mean Platelet Volume 9.6 fL (9.4-12.4); Platelet Count 150 K/uL (130-400); RDW Coefficient of Variation 17.1 % (11.5-14.5); RDW Standard Deviation 55.4 fL (36.4-46.3); Red Blood Count 4.79 M/uL (4.70-6.10); White Blood Count 6.36 K/ul (4.8-10.8)
[2023-01-03 07:20] LABS: BUN Creatinine Ratio 32.5 (10-20); Creatinine Clr Calc Pharmacy 67.8 ml/min; Est GFR (African American) 95.2 ml/min; Est GFR (Non-African American) 82.2 ml/min; Potassium 4.1 mmol/L (3.5-5.1)
[2023-01-03] MEDS: MULTIVITAMIN TAB PO SCH (07:54)
[2023-01-03] MEDS: TORSEMIDE 20 MG TAB PO SCH (07:54)
[2023-01-03] MEDS: CLOPIDOGREL BISULFATE 75 MG TAB PO SCH (07:54)
[2023-01-03] MEDS: PANTOprazole 40 MG TAB PO SCH (07:55)
[2023-01-03] MEDS: CYANOCOBALAMIN (B-12) 500 MCG TABLET PO SCH (07:55)
[2023-01-03] MEDS: carvediloL 12.5 MG TAB PO SCH ×2 (07:55→20:34)
[2023-01-03] MEDS: ASPIRIN 81 MG ECTAB PO SCH (07:55)
[2023-01-03] MEDS: UMECLIDINIUM/VILANTEROL 62.5/25MCG 7 PUFFS/INHALER INH SCH (07:56)
[2023-01-03] MEDS: FLUTICASONE FUROATE 100MCG 14 PUFFS/INHALER INH SCH (07:56)
[2023-01-03] MEDS: PREGABALIN 75 MG CAP PO SCH ×2 (07:59→20:38)
[2023-01-03] MEDS: POTASSIUM CHLORIDE CRTAB 20 MEQ TABCR PO SCH (08:00)
[2023-01-03] MEDS ORDERED: hydrALAZINE HCL 20 MG/ML VIAL IV PRN (08:12)
[2023-01-03] MEDS: LANTUS PER UNIT CHARGE SQ SCH ×2 (08:54→20:33)
[2023-01-03] MEDS: INSULIN ASPART PER UNIT CHARGE SC SCH ×4 (08:55→20:33)
--- NOTE | 2023-01-03 10:53 | Hospitalist Progress Note ---
Date of Service January 03, 2023 Assessment & Plan (1) Acute CVA (cerebrovascular accident): (2) Diabetes mellitus: (3) CAD (coronary artery disease): (4) Peripheral artery disease: (5) ERINN (obstructive sleep apnea): (6) HTN (hypertension): Plan This is an 87-year-old male who has significant past medical history of chronic respiratory failure with hypoxia, COPD, ERINN on CPAP, T2DM, HTN, chronic diastolic CHF, bicuspid aortic valve, history of TAVR, CAD with hx of CABG x 4 with atherosclerosis of bypass vessels, peripheral vascular disease status post R common femoral endarterectomy, B/L common iliac stenting, carotid artery stenosis s/p b/l thromboendarterectomy w/ patch, GERD, pneumoconiosis, BPH, chronic back pain, history of tobacco abuse who presents ED secondary to feeling x2 days. MRI brain Findings concerning for acute ischemic injury in the left cerebellum with extensive cytotoxic edema, without evidence of hemorrhagic transformation. Multiple remote ischemic injuries of the cerebellum. Moderate nonspecific white matter changes. Moderate ventriculomegaly CTA head/neck 1. 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 2. Likely hemodynamically significant stenosis of the right internal carotid artery. Echo- EF 55-60%, RA,RV and LA not well visualized, mod concentric LVF, s/p KARLOS with normal gradient Tele- sinus rhythm Acute left superior cerebellar CVA - Imagings reviewed as above. Seen by neuro and recommendations noted. -Patient had repeat CT head today which showed stable findings with no hemorrhagic transformation -Communicated with neurology and reviewed recommendations -- Continue aspirin 81mg daily and plavix 75mg daily, and high intensity statin -- Liberalize neurochecks --Holter monitor/zio patch as an outpatient- Spoke with cardio who will arrange the monitor once discharged. Continue tele in house -- Repeat echo as OP with cardio -- PT OT recommends rehab- CM following -- Neuro follow-up in 4-6 weeks -- Vascular surgery followup for carotid stenosis (not related to current presentation) - Having intermittent headache as stated above. Continue Tylenol, toradol prn for headache. Avoid tramadol or opioids as patient did not tolerate tramadol. HTN- BP intermittently elevated during bouts of severe headaches. On coreg, torsemide and hydralazine prn. 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 Montana, will need close follow-up as outpatient DVT ppx: steve graham Dispo: PT OT recommends rehab. Stable for discharge to rehab. Awaiting insurance authorization and bed availability Admission and Anticipated Discharge Date Admission Date: December 29, 2022 Subjective Seen and examined at bedside. C/o headache and eye pain this morning and feeling sick in the stomach from the same. States there is no change in character of the headache. He had received iv toradol prior to my encounter. No fever, chills, N/V/chest pain, SOB. No new neurological symptoms. Denies diplopia or blurriness. Review of Systems Review of Systems: All systems reviewed & are unremarkable except as noted in Subjective Physical Exam Physical Exam: General: Lying in bed, in some distress due to headache, on NC HEENT: EOMI, ASHLEY, MMM Chest: Clear breath sounds bilaterally, no wheezes or crackles CVS: Regular rate and rhythm, normal heart sounds, no murmur Abdomen: Soft, non tender, not distended, normal bowel sounds Neuro: Awake, alert, oriented, conversing appropriately, No new neurological S/S Extremities: No cyanosis, clubbing or edema Results & Data Results & Data Vital Signs (Past 12 Hours) Vital Signs Temp Pulse Pulse Resp BP BP Pulse Ox 01/03/23 10:21 58 L 01/03/23 08:36 164/84 H 01/03/23 07:45 36.4 C L 96 H 20 199/74 H 96 01/03/23 04:00 36.7 C 63 18 152/82 H 99 01/03/23 01:29 61 01/02/23 23:00 37.0 C 18 187/83 H 87 L 01/02/23 23:12 O2 Del Method O2 Flow Rate 01/03/23 10:21 01/03/23 08:36 01/03/23 07:45 Nasal Cannula 2 01/03/23 04:00 CPAP 01/03/23 01:29 01/02/23 23:00 Nasal Cannula 2 01/02/23 23:12 Nasal Cannula 2 Laboratory Results Short CBC 01/03/23 Range/Units 06: WBC 6.36 (4.8-10.8) K/ul Hgb 13.8 L (14.0-18.0) g/dl Hct 42.3 (42.0-52.0) % Plt Count 150 (130-400) K/uL BMP 01/03/23 06:23 Sodium 140 Potassium 4.1 Chloride 100 Carbon Dioxide 35 H BUN 25 H Creatinine 0.77 Glucose 151 H Calcium 10.0 Medications Administered Current Inpatient Medications Acetaminophen (Acetaminophen 500 Mg Tab) 1,000 mg PO Q8 [facility] Stop: 01/31/23 13:59 Last Admin: 01/03/23 06:02 Dose: 1,000 mg Al Hydrox/Mg Hydrox/Simethicone (Aluminum/Magnesium Susp 30 Ml Udc) 15 ml PO Q4H PRN PRN Reason: Dyspepsia Stop: 01/28/23 19:13 Aspirin (Aspirin 81 Mg Ectab) 81 mg PO [facility] Stop: 01/29/23 08:59 Last Admin: 01/03/23 07:55 Dose: 81 mg Carvedilol (Carvedilol 12.5 Mg Tab) 12.5 mg PO BID [facility] Stop: 01/28/23 20:59 Last Admin: 01/03/23 07:55 Dose: 12.5 mg Clopidogrel Bisulfate (Clopidogrel Bisulfate 75 Mg Tab) 75 mg PO [facility] Stop: 01/29/23 08:59 Last Admin: 01/03/23 07:54 Dose: 75 mg Cyanocobalamin (Cyanocobalamin (B-12) 500 Mcg Tablet) 1,000 mcg PO [facility] Stop: 01/29/23 08:59 Last Admin: 01/03/23 07:55 Dose: 1,000 mcg Dextrose (Dextrose 50% 50 Ml Syringe) 25 - 50 ml IV UD PRN; Protocol PRN Reason: Hypoglycemia Protocol Stop: 01/28/23 19:13 Enoxaparin Sodium (Enoxaparin Inj 40 Mg/0.4 Ml Syr) 40 mg SQ HS [facility] Stop: 01/30/23 20:59 Last Admin: 01/02/23 22:31 Dose: 40 mg Fluticasone Furoate (Fluticasone Furoate 100mcg 14 Puffs/Inhaler) 1 puffs INH DAILY [facility] Stop: 01/29/23 08:59 Last Admin: 01/03/23 07:56 Dose: 1 puffs Glucagon (Glucagon For Inj 1 Mg Vial) 1 mg SQ UD PRN; Protocol PRN Reason: Hypoglycemia Protocol Stop: 01/28/23 19:13 Glucose (Glucose 10 Tab/Tube) 4 - 8 tab PO UD PRN; Protocol PRN Reason: Hypoglycemia Treatment Stop: 01/28/23 19:13 Glucose (Glucose 40% Gel 15 Gm Tube) 15 - 30 gm PO UD PRN; Protocol PRN Reason: Hypoglycemia Protocol Stop: 01/28/23 19:13 Hydralazine HCl (Hydralazine Hcl 20 Mg/Ml Vial) 10 mg IV Q6H PRN PRN Reason: Give for SBP>170 or DBP>110 Stop: 02/02/23 08:11 Last Admin: 01/03/23 08:31 Dose: 10 mg Insulin Aspart (Insulin Aspart Per Unit Charge) 0 units SC ACHS [facility] Stop: 01/28/23 19:13 Last Admin: 01/03/23 08:55 Dose: 2 units Insulin Glargine (Lantus Per Unit Charge) 0 units SQ BID [facility] Stop: 01/28/23 20:59 Last Admin: 01/03/23 08:54 Dose: 4 units Ketorolac Tromethamine (Ketorolac Tromethamine 15 Mg/Ml Vial) 10 mg IV DAILY PRN PRN Reason: severe headache Stop: 01/04/23 17:12 Last Admin: 01/03/23 07:59 Dose: 10 mg Levothyroxine Sodium (Levothyroxine Sodium 25 Mcg Tablet) 25 mcg PO DAILYBB [facility] Stop: 01/29/23 06:29 Last Admin: 01/03/23 06:03 Dose: 25 mcg Magnesium Hydroxide (Magnesium Hydroxide Susp 30 Ml Udc) 30 ml PO Q12H PRN PRN Reason: Constipation Stop: 01/28/23 19:13 Magnesium Oxide (Magnesium Oxide 400 Mg Tab) 400 mg PO QAM [facility] Stop: 01/29/23 08:59 Last Admin: 12/31/22 08:02 Dose: 400 mg Miconazole Nitrate (Miconazole Nitrate Powder 85 Gm) 1 appln EXT PRN PRN PRN Reason: Affected Skin Folds Stop: 02/02/23 02:58 Last Admin: 01/03/23 06:01 Dose: 1 appln Miscellaneous (Carbohydrates For Hypoglycemia ) 15 - 30 gm PO UD PRN PRN Reason: Hypoglycemia Protocol Stop: 01/28/23 19:13 Multivitamins (Multivitamin Tab) 1 tab PO QAM [facility] Stop: 01/29/23 08:59 Last Admin: 01/03/23 07:54 Dose: 1 tab Nystatin (Nystatin Susp 500,000 U/5 Ml Udc) 5 ml PO QID [facility] Stop: 01/13/23 03:54 Last Admin: 01/03/23 06:01 Dose: 5 ml Ondansetron HCl (Ondansetron Inj 2 Mg/Ml 2 Ml Vial) 4 mg IV Q6H PRN PRN Reason: Nausea Stop: 01/28/23 19:13 Last Admin: 01/01/23 01:50 Dose: 4 mg Pantoprazole Sodium (Pantoprazole 40 Mg Tab) 40 mg PO QAM [facility] Stop: 01/29/23 08:59 Last Admin: 01/03/23 07:55 Dose: 40 mg Polyethylene Glycol (Polyethylene (Miralax) 17 Gm Pack) 17 gm PO DAILY PRN PRN Reason: Constipation Stop: 01/28/23 19:13 Potassium Chloride (Potassium Chloride Crtab 20 Meq Tabcr) 40 meq PO QAM [facility] Stop: 01/30/23 08:59 Last Admin: 01/03/23 08:00 Dose: 40 meq Pregabalin (Pregabalin 75 Mg Cap) 75 mg PO BID [facility] Stop: 01/28/23 20:59 Last Admin: 01/03/23 07:59 Dose: 75 mg Rosuvastatin Calcium (Rosuvastatin Calcium 20 Mg Tab) 40 mg PO QPM [facility] Stop: 01/28/23 20:59 Last Admin: 01/02/23 22:34 Dose: 40 mg Torsemide (Torsemide 20 Mg Tab) 20 mg PO QAM [facility] Stop: 01/29/23 08:59 Last Admin: 01/03/23 07:54 Dose: 20 mg Umeclidinium/Vilanterol (Umeclidinium/Vilanterol 62.5/25mcg 7 Puffs/Inhaler) 1 puffs INH DAILY [facility] Stop: 01/29/23 08:59 Last Admin: 01/03/23 07:56 Dose: 1 puffs (2) Diabetes mellitus Diabetes mellitus complication status: without complication 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
[2023-01-03] MEDS: LOSARTAN POTASSIUM 25 MG TAB PO SCH (17:42)
[2023-01-03] MEDS: ENOXAPARIN INJ 40 MG/0.4 ML SYR SQ SCH (20:34)
[2023-01-03] MEDS: ROSUVASTATIN CALCIUM 20 MG TAB PO SCH (20:35)
[2023-01-03] MEDS: DOCUSATE SODIUM/SENNA 50/8.6MG TAB PO SCH (20:35)
[2023-01-03] MEDS ORDERED: LOSARTAN POTASSIUM 25 MG TAB PO SCH (21:00)
--- NOTE | 2023-01-03 22:41 | CT Scan Report ---
Exam(s): CT HEAD Without Contrast EXAM: CT Head Without Intravenous Contrast CLINICAL HISTORY: Reason for exam: AMS. F/ on stroke. TECHNIQUE: Axial computed tomography images of the head/brain without intravenous contrast. CTDI is 37.12 mGy and DLP is 546.36 mGy-cm. Automated exposure control was utilized for the study. A dose lowering technique was utilized adhering to the principles of ALARA. COMPARISON: Head CT, December 31, 2022. FINDINGS: Brain: Intraparenchymal bleed in the LEFT cerebellum, which now measures approximately 1.2 x 1.1 cm (previously 1.1 x 0.7 cm). Adjacent encephalomalacia developing in the LEFT cerebellum, consistent with developing infarct. The territorial khalil-white matter differentiation is maintained throughout. Age-related cerebral volume loss. Periventricular and subcortical white matter hypoattenuation, consistent with chronic microangiopathy. No supratentorial midline shift. Ventricles: Partial effacement of the fourth ventricle. No hydrocephalus at this time. Bones/joints: Unremarkable. No acute fracture. Soft tissues: Unremarkable. Sinuses: Unremarkable as visualized. No acute sinusitis. Mastoid air cells: Unremarkable as visualized. No mastoid effusion. IMPRESSION: 1. Intraparenchymal bleed in the LEFT cerebellum, which now measures approximately 1.2 x 1.1 cm (previously 1.1 x 0.7 cm). Adjacent encephalomalacia developing in the LEFT cerebellum, consistent with developing infarct. 2. Partial effacement of the fourth ventricle. No hydrocephalus at this time. Electronically signed by: Mundo Moreno MD 01/03/23 22:40 PM
[2023-01-03] MEDS ORDERED: LACTATED RINGER'S 1,000 ML IV ONE (23:21)
--- NOTE | 2023-01-04 04:37 | Communication Note ---
Date of Service: January 03, 202301/03, 1115 PM Late entry Made aware by RN of abnormal CT head results (read [id number] as report) 1. Intraparenchymal bleed in the LEFT cerebellum, which now measures approximately 1.2 x 1.1 cm (previously 1.1 x 0.7 cm). Adjacent encephalomalacia developing in the LEFT cerebellum, consistent with developing infarct. 2. Partial effacement of the fourth ventricle. No hydrocephalus at this time. Patient lethargic all day as per RN. AP L Cerebellar stroke with hemorrhagic information Hold antiplatelet Rx, Lovenox for now Repeat CT head after 12 hours Will request AM provider to update Neurology Patient daughter (Miss Narda Ohara) updated of developments over the phone. Family not interested in any neurosurgical intervention if warranted. DNR CODE STATUS affirmed.
--- NOTE | 2023-01-04 05:46 | CT Scan Report ---
Exam(s): CT HEAD Without Contrast EXAM: CT Head Without Intravenous Contrast CLINICAL HISTORY: Intracranial hemorrhage. TECHNIQUE: Axial computed tomography images of the head/brain without intravenous contrast. CTDI is 37.42 mGy and DLP is 624.41 mGy-cm. Automated exposure control was utilized for the study. A dose lowering technique was utilized adhering to the principles of ALARA. COMPARISON: CT head 01/03/2023 FINDINGS: Brain: Stable left cerebellar intrarectal hemorrhage with surrounding edema. Moderate periventricular white matter hypodensities are most consistent with chronic microangiopathy. No midline shift. Ventricles: There is persistence mass-effect of the fourth ventricle. No hydrocephalus. Bones/joints: Unremarkable. No acute fracture. Soft tissues: Unremarkable. Sinuses: Unremarkable as visualized. No acute sinusitis. Mastoid air cells: Unremarkable as visualized. No mastoid effusion. IMPRESSION: 1. Stable left cerebellar intrarectal hemorrhage with surrounding edema. 2. There is persistence mass-effect of the fourth ventricle. No hydrocephalus. Electronically signed by: Hina Marie MD 01/04/23 05:46 AM
[2023-01-04] MEDS: ACETAMINOPHEN 500 MG TAB PO SCH ×3 (06:12→21:44)
[2023-01-04] MEDS: LEVOTHYROXINE SODIUM 25 MCG TABLET PO SCH (06:13)
[2023-01-04] MEDS ORDERED: oxyCODONE HCL IR 5 MG TAB (IMMEDIATE RELEASE) PO PRN (08:26)
[2023-01-04] MEDS: INSULIN ASPART PER UNIT CHARGE SC SCH ×4 (09:12→21:41)
[2023-01-04] MEDS: UMECLIDINIUM/VILANTEROL 62.5/25MCG 7 PUFFS/INHALER INH SCH (09:14)
[2023-01-04] MEDS: LANTUS PER UNIT CHARGE SQ SCH (09:15)
[2023-01-04] MEDS: FLUTICASONE FUROATE 100MCG 14 PUFFS/INHALER INH SCH (09:15)
[2023-01-04] MEDS: NYSTATIN SUSP 500,000 U/5 ML UDC PO SCH ×4 (09:21→21:41)
[2023-01-04] MEDS: POTASSIUM CHLORIDE CRTAB 20 MEQ TABCR PO SCH (10:00)
[2023-01-04] MEDS: MULTIVITAMIN TAB PO SCH (10:04)
[2023-01-04] MEDS: PREGABALIN 75 MG CAP PO SCH ×2 (10:04→21:44)
[2023-01-04] MEDS: carvediloL 3.125 MG TAB PO SCH ×2 (10:04→17:12)
[2023-01-04] MEDS: CYANOCOBALAMIN (B-12) 500 MCG TABLET PO SCH (10:04)
[2023-01-04] MEDS: PANTOprazole 40 MG TAB PO SCH (10:05)
--- NOTE | 2023-01-04 10:41 | Neurology Consultation ---
Date of Consultation January 04, 2023 Assessment & Plan (1) Cerebellar stroke: Patient presents with 4 days of dysarthria and ataxia found to have an acute large L cerebellar stroke likely cardioembolic mechanism. He may be nearing peak swelling, however, 4th ventricle is widely patent. I recommend closer neuro monitoring for the next 24 hours (q2 checks) and a repeat CT head tomorrow. If the CT head tomorrow is stable, checks can be reduced to q4. He will need further workup for paroxysmal afib but would otherwise not change aspirin/plavix unless afib is detected. If afib is detected would start eliquis +aspirin but no earlier than 01/05 based on the size of the stroke. Encourage PT for dispo planning but overall prognosis with cerebellar stroke is excellent. Otherwise, headache is common with stroke in this region, agree with scheduled tylenol. Avoid sedating pain medications to preserve integrity of the neuro checks. Can try IV mag 1g BID to help with pain. -- Continue aspirin 81mg daily and plavix 75mg daily -- Echo pending, continue tele -- q2 neuro checks until AM, repeat head CT tomorrow AM -- Therapy evals -- Tylenol scheduled for headache -- Can try 1g IV magnesium BID for headache -- Avoid narcotics/toradol for headache -- Holter monitor/zio patch as an outpatient -- Neuro follow-up in 4-6 weeks -- Vascular surgery followup for carotid stenosis (not related to current presentation) History of Present Illness Attending Physician: Rolf Rodriguez MD Allergies Allergy/AdvReac Type Severity Reaction Status Date / Time codeine AdvReac Mild Anxiety Verified 05/26/22 10:56 symptoms hydrocodone AdvReac Mild Anxiety, Verified 05/26/22 10:56 insomnia Home Medications Medication Instructions Recorded Confirmed Type acetaminophen 500 mg tablet 1,000 mg PO BID 06/08/19 12/29/22 History (Acetaminophen Extra Strength) aspirin 81 mg tablet,delayed 81 mg PO QAM 06/08/19 12/29/22 History release carvedilol 12.5 mg tablet 12.5 mg PO BID 06/08/19 12/29/22 History clopidogrel 75 mg tablet 75 mg PO QAM 06/08/19 12/29/22 History cyanocobalamin (vitamin B-12) 1,000 mcg PO QAM 06/08/19 12/29/22 History 1,000 mcg tablet (Vitamin B-12) fluticasone fur. 100 mcg-umeclid 1 inh inhalation QAM 06/08/19 12/29/22 History 62.5 mcg-vilant 25 mcg inhalat.powder (Trelegy Ellipta) levothyroxine 25 mcg tablet 25 mcg PO QAM 06/08/19 12/29/22 History metformin 500 mg tablet 1,000 mg PO BID 06/08/19 12/29/22 History multivitamin 1 tab PO QAM 06/08/19 12/29/22 History nitroglycerin 0.4 mg sublingual 0.4 mg sublingual UD 06/08/19 12/29/22 History tablet (Nitrostat) pantoprazole 40 mg tablet,delayed 40 mg PO QAM 06/08/19 12/29/22 History release potassium chloride 10 mEq 10 meq PO QAM 06/08/19 12/29/22 History capsule,extended release rosuvastatin 20 mg tablet 40 mg PO QPM 06/08/19 12/29/22 History magnesium oxide 500 mg tablet 500 mg PO QAM 04/28/22 12/29/22 History pregabalin 75 mg capsule (Lyrica) 75 mg PO BID 04/28/22 12/29/22 History torsemide 20 mg tablet 20 mg PO QAM 04/28/22 12/29/22 History tramadol 50 mg tablet 50 mg PO HS PRN Pain 12/29/22 12/29/22 History Patient History Medical History Aortic stenosis s/p TAVR BPH (benign prostatic hyperplasia) CAD (coronary artery disease) CABG x 4 (2000) Stent x1 (2006) Cath (2011) - SVG to 1st diagonal 100% occluded, other grafts patent Carotid artery disease s/p Left CEA (2011), right (2012) Carotid artery stenosis Diabetes mellitus Dyslipidemia GERD (gastroesophageal reflux disease) HTN (hypertension) Hypothyroidism Obesity ERINN (obstructive sleep apnea) CPAP with O2 3.5L HS Rest pain of both lower extremities due to atherosclerosis Surgical History Amputated finger H/O repair of right rotator cuff H/O vascular surgery (05/26/22) Right Common Femoral Artery Endarterectomy,(Right) with bovine patch - Maurizio Montana MD sBilateral Iliac Stents(Bilateral) - Maurizio Montana MD History of anesthesia reaction Slow to wake History of cardiac cath Stent x1 (2006) History of CEA (carotid endarterectomy) Left - 2012 Right - 2013 History of cholecystectomy History of colonoscopy History of coronary artery bypass graft CABG x4 (2000) History of heart valve replacement AVR [facility] after 2006 Hx of cataract surgery S/P laminectomy with spinal fusion Back surgeries x2 S/P TURP Family History Brother Diabetes Coronary heart disease, Onset Age: 60 Brother Coronary heart disease, Onset Age: 50 Diabetes Mother Diabetes Social History Smoking Status: Former smoker packs per day: 4; Second Hand Exposure: No; Do You Dip or Chew Tobacco: No; Tobacco Cessation Education Requested by Patient: No Hx Alcohol Use: Yes Alcohol type: beer Hx Substance Use: No Preferred Language: Haitian Communication Ability: Effective 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 Beliefs That Will Affect Care: None marital status: Current Living Situation: Spouse and Family current occupational status: retired Other Information That Helps Us Care for You: No Feels Safe at Home: Yes Safety Concerns: Feels Safe At This Time Assistive Devices: Bedside Commode, Cane and Walker Results & Data Vital Signs (Past 12 Hours) Vital Signs Temp Pulse Pulse Resp BP BP Pulse Ox 01/04/23 07:17 36.6 C 62 16 121/70 95 01/04/23 00:00 64 01/04/23 03:25 36.8 C 58 L 20 125/65 96 01/03/23 22:58 36.6 C 65 16 174/77 H 94 O2 Del Method O2 Flow Rate 01/04/23 07:17 Nasal Cannula 2 01/04/23 00:00 01/04/23 03:25 Nasal Cannula 3 01/03/23 22:58 Nasal Cannula 2 PG Care Time/CCT Total # of Minutes Spent Total Time Spent with Patient: Total time spent is greater than 50% in coordination of care (as documented) at patient's floor/unit and/or counseling patient: Coding Diagnoses Cerebellar stroke I63.9
--- NOTE | 2023-01-04 11:03 | Neurology Progress Note ---
Date of Service January 04, 2023 Assessment & Plan (1) Acute CVA (cerebrovascular accident): (2) Cerebellar hemorrhage, acute: (3) Ataxia due to acute cerebrovascular disease: Plan this patient has suffered an acute left cerebellar ischemic infarct ( left superior cerebral artery stenosis) December 29 . He was put on aspirin and Plavix. As of late January 03 he has had a hemorrhagic transformation of the stroke in the left cerebellar hemisphere with some mass effect. His mental status is reasonable currently although he has dysarthria. He does now have a right facial droop and has ataxia greater than weakness in the left upper extremity. There is some mild left lower extremity weakness and ataxia as well. There is likely some extension into the right brainstem since he has a right facial droop. Overall his prognosis is rather poor given his advanced age and he is not a surgical candidate ( expressed DNR And no surgery wishes). Recommendations: 1. keep off antiplatelet medication or anticoagulation as you are doing. 2. Decadron 4 mg IV to see if this reduces some swelling in helps with his symptoms. We will decide on titration of this depending on his response to 4 mg Decadron. 3. Otherwise there is not much else we can do here further but he does not want to be transferred. 4. increase activity as able with physical, speech occupational, and speech therapy. Could be rehabilitation candidate should he remain stable over the next couple of days. 5. No reintroduction of antiplatelet medication until the blood has resorbed Overall, I spent a total of 50 minutes with this case including review of records, review of MRI and CT films, direct evaluation the patient at bedside, reports generation, and discussion of the case with the patient and family at bedside, RN at bedside, and Dr. Casiano, including differential diagnosis and treatment options. Admission and Anticipated Discharge Date Admission Date: December 29, 2022 Subjective patient has a history of chronic respiratory failure and COPD, obstructive sleep apnea, type 2 diabetes, hypertension, diastolic congestive heart failure, coronary disease and peripheral vascular disease status post multiple stents. He was admitted December 29, with aphasia and left-sided weakness arm greater than leg. An MRI of the brain showed a rather large left cerebellar hemispheric stroke. There was significant generalized atrophy and moderate old small vessel ischemic disease. There was right internal carotid artery stenosis and left superior cerebellar artery Attenuation. on the late evening of January 03 the patient had abnormal mental status and lethargy. Repeat CT scan of the head showed intraparenchymal bleeding in the left cerebellar hemisphere. There is partial effacement of the 4th ventricle. A repeat CT scan of the head this morning showed stability and no further hemorrhage or mass effect The patient is lethargic and has some dysarthria but otherwise complains only of a right sided headache. His right eye has pain. Recent CBC was unremarkable and Chem profile showed mildly elevated BUN and glucose of between 150 - 200. Nursing reports no other new issues. The patient states that he does not want any surgery. Family who is present at bedside today ( his and 2 daughters ) verify that he does not want any surgical procedures done and is essentially a "DNR". Aspirin and Plavix which he had been on after admission for the stroke have been discontinued since it was learned he had hemorrhagic transformation. Results & Data Vital Signs (Past 12 Hours) Vital Signs Temp Pulse Pulse Resp BP BP Pulse Ox 01/04/23 07:17 36.6 C 62 16 121/70 95 01/04/23 00:00 64 01/04/23 03:25 36.8 C 58 L 20 125/65 96 01/03/23 22:58 36.6 C 65 16 174/77 H 94 O2 Del Method O2 Flow Rate 01/04/23 07:17 Nasal Cannula 2 01/04/23 00:00 01/04/23 03:25 Nasal Cannula 3 01/03/23 22:58 Nasal Cannula 2 Exam (Neuro) Physical Exam: He is awake and alert. He has a significant dysarthria. He follows one-step commands well and is oriented to his name and the names of all of his family members present. His mood is good and affect appropriate. Extraocular eye muscles are intact without nystagmus. He has a right facial droop at the corner of the mouth which does not move well with voluntary smile. Forehead strength is symmetrical. He has some drift in the left upper extremity but no drift in the left leg. Coordination is normal in the right upper extremity without ataxia. Right upper extremity strength is 5/5 diffusely. In the left upper extremity, he has obvious ataxia without tremor. Strength is 4+/5 diffusely. In the left leg, he has mild ataxia and 4/5 strength diffusely proximally and closer to 5/5 distally. Left lower extremity is essentially 5/5 in strength. Reflexes are 1/for the biceps, triceps, brachioradialis, and quadriceps tendons bilaterally. Achilles tendon reflexes are absent bilaterally and toes are downgoing plantar stimulation bilaterally. PG Care Time/CCT Total # of Minutes Spent Total Time Spent with Patient: Total time spent is greater than 50% in coordination of care (as documented) at patient's floor/unit and/or counseling patient: Coding Level of Care Code 54481 SUB INP/OBS CARE 3/50MIN Diagnoses Acute CVA (cerebrovascular accident) I63.9 Cerebellar hemorrhage, acute I61.4 Ataxia due to acute cerebrovascular disease I67.89; R27.0
--- NOTE | 2023-01-04 12:23 | Hospitalist Progress Note ---
Date of Service January 04, 2023 Assessment & Plan (1) Acute CVA (cerebrovascular accident): (2) Cerebellar hemorrhage, acute: (3) Ataxia due to acute cerebrovascular disease: (4) Diabetes mellitus: (5) CAD (coronary artery disease): (6) Peripheral artery disease: (7) ERINN (obstructive sleep apnea): (8) HTN (hypertension): Plan This is an 87-year-old male who has significant past medical history of chronic respiratory failure with hypoxia, COPD, ERINN on CPAP, T2DM, HTN, chronic diastolic CHF, bicuspid aortic valve, history of TAVR, CAD with hx of CABG x 4 with atherosclerosis of bypass vessels, peripheral vascular disease status post R common femoral endarterectomy, B/L common iliac stenting, carotid artery stenosis s/p b/l thromboendarterectomy w/ patch, GERD, pneumoconiosis, BPH, chronic back pain, history of tobacco abuse who presents ED secondary to feeling x2 days. Found to have acute left cerebellar stroke but unfortunately had hemorrhagic transformation while on dual antiplatelets for his stroke. CTA head/neck 12/29 1. 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 2. Likely hemodynamically significant stenosis of the right internal carotid artery. MRI 12/29brain Findings concerning for acute ischemic injury in the left cerebellum with extensive cytotoxic edema, without evidence of hemorrhagic transformation. Multiple remote ischemic injuries of the cerebellum. Moderate nonspecific white matter changes. Moderate ventriculomegaly CT head 01/03 1. Intraparenchymal bleed in the LEFT cerebellum, which now measures approximately 1.2 x 1.1 cm (previously 1.1 x 0.7 cm).Adjacent encephalomalacia developing in the LEFT cerebellum, consistent with developing infarct. 2. Partial effacement of the fourth ventricle. No hydrocephalus at this time. CT head 01/04 1. Stable left cerebellar intrarectal hemorrhage with surrounding edema. 2. There is persistence mass-effect of the fourth ventricle. No hydrocephalus. 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 Seen by neuro and was on dual antiplatelets with chemoprophylaxis as per neuro recommendation however patient was noted to be lethargic for which repeat CT was done which showed hemorrhagic transformation. Repeat CT head today shows stability. Patient was reevaluated with neurology today and recommended trial of Decadron for hemorrhage/edema/headache. -Continue to hold dual antiplatelets and chemoprophylaxis until blood has resolved per neurology -Trial of Decadron taper -Continue neurochecks. -Holter monitor/zio patch as an outpatient- Spoke with cardio who will arrange the monitor once discharged. Continue tele in house -Repeat echo as OP with cardio -Neuro follow-up in 4-6 weeks -Vascular surgery followup for carotid stenosis (not related to current presentation) -Per family, no Toradol or tramadol for headache but okay with low-dose oxycodone. Continue scheduled Tylenol and Decadron trial. HTN- BP has improved with addition of losartan. Continue Coreg, losartan, torsemide and hydralazine prn. 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 Montana, will need close follow-up as outpatient DVT ppx: SCD. Contraindicated in setting of hemorrhage transformation of stroke Dispo: PT OT recommends rehab. Anticipate discharge to rehab when stable. Plan is to discharge to [facility] Updated and daughter at bedside Admission and Anticipated Discharge Date Admission Date: December 29, 2022 Subjective Patient was seen and examined at bedside. He is more awake alert today and answering questions appropriately. Has intermittent headache. No no fever, chills, chest pain, shortness of breath, nausea or vomiting. Review of Systems Review of Systems: All systems reviewed & are unremarkable except as noted in Subjective Physical Exam Physical Exam: General: Lying in bed, not in acute distress, on NC HEENT: EOMI, ASHLEY, MMM Chest: Clear breath sounds bilaterally, no wheezes or crackles CVS: Regular rate and rhythm, normal heart sounds, no murmur Abdomen: Soft, non tender, not distended, normal bowel sounds Neuro: Awake, alert, oriented, conversing appropriately, dysarthria, right facial droop, follows simple commands. Left-sided ataxia Extremities: No cyanosis, clubbing or edema Psych: Normal mood, calm, cooperative Results & Data Results & Data Vital Signs (Past 12 Hours) Vital Signs Temp Pulse Resp BP BP Pulse Ox O2 Del Method 01/04/23 11:12 36.4 C L 61 16 128/74 96 Nasal Cannula 01/04/23 07:17 36.6 C 62 16 121/70 95 Nasal Cannula 01/04/23 03:25 36.8 C 58 L 20 125/65 96 Nasal Cannula O2 Flow Rate 01/04/23 11:12 3 01/04/23 07:17 2 01/04/23 03:[address] 01/04/23 04:00 Exam(s): CT HEAD Without Contrast EXAM: CT Head Without Intravenous Contrast CLINICAL HISTORY: Intracranial hemorrhage. TECHNIQUE: Axial computed tomography images of the head/brain without intravenous contrast. CTDI is 37.42 mGy and DLP is 624.41 mGy-cm. Automated exposure control was utilized for the study. A dose lowering technique was utilized adhering to the principles of ALARA. COMPARISON: CT head 01/03/2023 FINDINGS: Brain: Stable left cerebellar intrarectal hemorrhage with surrounding edema. Moderate periventricular white matter hypodensities are most consistent with chronic microangiopathy. No midline shift. Ventricles: There is persistence mass-effect of the fourth ventricle. No hydrocephalus. Bones/joints: Unremarkable. No acute fracture. Soft tissues: Unremarkable. Sinuses: Unremarkable as visualized. No acute sinusitis. Mastoid air cells: Unremarkable as visualized. No mastoid effusion. IMPRESSION: 1. Stable left cerebellar intrarectal hemorrhage with surrounding edema. 2. There is persistence mass-effect of the fourth ventricle. No hydrocephalus. Electronically signed by: Hina Marie MD 01/04/23 05:46 AM Medications Administered Current Inpatient Medications Acetaminophen (Acetaminophen 500 Mg Tab) 1,000 mg PO Q8 UNA Stop: 01/31/23 13:59 Last Admin: 01/04/23 06:12 Dose: Not Given Al Hydrox/Mg Hydrox/Simethicone (Aluminum/Magnesium Susp 30 Ml Udc) 15 ml PO Q4H PRN PRN Reason: Dyspepsia Stop: 01/28/23 19:13 Aspirin (Aspirin 81 Mg Ectab) 81 mg PO QAM REPLACED BY [facility] Stop: 01/29/23 08:59 Last Admin: 01/03/23 07:55 Dose: 81 mg Carvedilol (Carvedilol 3.125 Mg Tab) 3.125 mg PO BIDM REPLACED BY [facility] Stop: 02/03/23 07:59 Last Admin: 01/04/23 10:04 Dose: 3.125 mg Clopidogrel Bisulfate (Clopidogrel Bisulfate 75 Mg Tab) [facility] Stop: 01/29/23 08:59 Last Admin: 01/03/23 07:54 Dose: 75 mg Cyanocobalamin (Cyanocobalamin (B-12) 500 Mcg Tablet) 1,[address] [facility] Stop: 01/29/23 08:59 Last Admin: 01/04/23 10:04 Dose: 1,000 mcg Dextrose (Dextrose 50% 50 Ml Syringe) 25 - 50 ml IV UD PRN; Protocol PRN Reason: Hypoglycemia Protocol Stop: 01/28/23 19:13 Enoxaparin Sodium (Enoxaparin Inj 40 Mg/0.4 Ml Syr) 40 mg SQ HS REPLACED BY [facility] Stop: 01/30/23 20:59 Last Admin: 01/03/23 20:34 Dose: 40 mg Fluticasone Furoate (Fluticasone Furoate 100mcg 14 Puffs/Inhaler) 1 puffs INH DAILY REPLACED BY [facility] Stop: 01/29/23 08:59 Last Admin: 01/04/23 09:15 Dose: 1 puffs Glucagon (Glucagon For Inj 1 Mg Vial) 1 mg SQ UD PRN; Protocol PRN Reason: Hypoglycemia Protocol Stop: 01/28/23 19:13 Glucose (Glucose 10 Tab/Tube) 4 - 8 tab PO UD PRN; Protocol PRN Reason: Hypoglycemia Treatment Stop: 01/28/23 19:13 Glucose (Glucose 40% Gel 15 Gm Tube) 15 - 30 gm PO UD PRN; Protocol PRN Reason: Hypoglycemia Protocol Stop: 01/28/23 19:13 Hydralazine HCl (Hydralazine Hcl 20 Mg/Ml Vial) 10 mg IV Q6H PRN PRN Reason: Give for SBP>170 or DBP>110 Stop: 02/02/23 08:11 Last Admin: 01/03/23 08:31 Dose: 10 mg Lactated Ringer's (Lr) 1,000 mls @ 50 mls/hr IV .Q20H ONE Stop: 01/04/23 19:20 Last Admin: 01/04/23 00:46 Dose: 50 mls/hr Insulin Aspart (Insulin Aspart Per Unit Charge) 0 units SC ACHS REPLACED BY [facility] Stop: 01/28/23 19:13 Last Admin: 01/04/23 09:12 Dose: 2 units Insulin Glargine (Lantus Per Unit Charge) 5 units SQ DAILY UNA Stop: 02/03/23 08:59 Last Admin: 01/04/23 09:15 Dose: 5 units Levothyroxine Sodium (Levothyroxine Sodium 25 Mcg Tablet) 25 mcg PO DAILYBB REPLACED BY [facility] Stop: 01/29/23 06:29 Last Admin: 01/04/23 06:13 Dose: Not Given Losartan Potassium (Losartan Potassium 25 Mg Tab) 25 mg PO DAILY REPLACED BY [facility] Stop: 02/02/23 17:14 Last Admin: 01/03/23 17:42 Dose: 25 mg Magnesium Hydroxide (Magnesium Hydroxide Susp 30 Ml Udc) 30 ml PO Q12H PRN PRN Reason: Constipation Stop: 01/28/23 19:13 Magnesium Oxide (Magnesium Oxide 400 Mg Tab) 400 mg PO QAM REPLACED BY [facility] Stop: 01/29/23 08:59 Last Admin: 12/31/22 08:02 Dose: 400 mg Miconazole Nitrate (Miconazole Nitrate Powder 85 Gm) 1 appln EXT PRN PRN PRN Reason: Affected Skin Folds Stop: 02/02/23 02:58 Last Admin: 01/03/23 06:01 Dose: 1 appln Miscellaneous (Carbohydrates For Hypoglycemia ) 15 - 30 gm PO UD PRN PRN Reason: Hypoglycemia Protocol Stop: 01/28/23 19:13 Multivitamins (Multivitamin Tab) 1 tab PO QAM REPLACED BY [facility] Stop: 01/29/23 08:59 Last Admin: 01/04/23 10:04 Dose: 1 tab Nystatin (Nystatin Susp 500,000 U/5 Ml Udc) 5 ml PO QID REPLACED BY [facility] Stop: 01/13/23 03:54 Last Admin: 01/04/23 09:21 Dose: 5 ml Ondansetron HCl (Ondansetron Inj 2 Mg/Ml 2 Ml Vial) 4 mg IV Q6H PRN PRN Reason: Nausea Stop: 01/28/23 19:13 Last Admin: 01/01/23 01:50 Dose: 4 mg Oxycodone HCl (Oxycodone Hcl Ir 5 Mg Tab (Immediate Release)) 2.5 mg PO Q8H PRN PRN Reason: Pain, severe headache Stop: 01/18/23 08:25 Last Admin: 01/04/23 10:05 Dose: 2.5 mg Pantoprazole Sodium (Pantoprazole 40 Mg Tab) 40 mg PO QAM REPLACED BY [facility] Stop: 01/29/23 08:59 Last Admin: 01/04/23 10:05 Dose: 40 mg Polyethylene Glycol (Polyethylene (Miralax) 17 Gm Pack) 17 gm PO DAILY PRN PRN Reason: Constipation Stop: 01/28/23 19:13 Potassium Chloride (Potassium Chloride Crtab 20 Meq Tabcr) 40 meq PO QAM REPLACED BY [facility] Stop: 01/30/23 08:59 Last Admin: 01/04/23 10:00 Dose: 40 meq Pregabalin (Pregabalin 75 Mg Cap) 75 mg PO BID REPLACED BY [facility] Stop: 01/28/23 20:59 Last Admin: 01/04/23 10:04 Dose: 75 mg Rosuvastatin Calcium (Rosuvastatin Calcium 20 Mg Tab) 40 mg PO QPM REPLACED BY [facility] Stop: 01/28/23 20:59 Last Admin: 01/03/23 20:35 Dose: 40 mg Senna/Docusate Sodium (Docusate Sodium/Senna 50/8.6mg Tab) 2 tab PO HS REPLACED BY [facility] Stop: 02/02/23 20:59 Last Admin: 01/03/23 20:35 Dose: 2 tab Torsemide (Torsemide 20 Mg Tab) 20 mg PO QAM REPLACED BY [facility] Stop: 01/29/23 08:59 Last Admin: 01/03/23 07:54 Dose: 20 mg Umeclidinium/Vilanterol (Umeclidinium/Vilanterol 62.5/25mcg 7 Puffs/Inhaler) 1 puffs INH DAILY REPLACED BY [facility] Stop: 01/29/23 08:59 Last Admin: 01/04/23 09:14 Dose: 1 puffs (4) Diabetes mellitus Diabetes mellitus complication status: without complication Diabetes mellitus 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
[2023-01-04] MEDS: dexAMETHasone 4 MG in SYRINGE 0 ML IV SCH (13:06)
[2023-01-04] MEDS: DOCUSATE SODIUM/SENNA 50/8.6MG TAB PO SCH (21:40)
[2023-01-04] MEDS: ROSUVASTATIN CALCIUM 20 MG TAB PO SCH (21:42)
[2023-01-05] MEDS: ACETAMINOPHEN 500 MG TAB PO SCH ×3 (05:52→21:02)
[2023-01-05] MEDS: LEVOTHYROXINE SODIUM 25 MCG TABLET PO SCH (06:14)
[2023-01-05 07:19] LABS: Hematocrit (blood only) 39.4 % (42.0-52.0); Hemoglobin 13.7 g/dl (14.0-18.0); Mean Corpuscular Hemoglobin 29.8 pg (25.0-34.0); Mean Corpuscular Hgb Conc 34.8 g/dL (32.0-36.0); Mean Corpuscular Volume 85.7 fL (80.0-100.0); Mean Platelet Volume 9.5 fL (9.4-12.4); Platelet Count 147 K/uL (130-400); RDW Standard Deviation 52.9 fL (36.4-46.3); White Blood Count 6.91 K/ul (4.8-10.8)
[2023-01-05 07:33] LABS: BUN Creatinine Ratio 34.8 (10-20); Calcium 9.8 mg/dl (8.6-10.3); Creatinine Clr Calc Pharmacy 80.5 ml/min; Est GFR (African American) 101.5 ml/min; Est GFR (Non-African American) 87.5 ml/min; Magnesium 2.1 mg/dl (1.7-2.4); Phosphorus 3.6 mg/dl (2.5-4.9); Potassium 4.6 mmol/L (3.5-5.1)
[2023-01-05] MEDS: carvediloL 3.125 MG TAB PO SCH ×2 (08:03→17:52)
[2023-01-05] MEDS: dexAMETHasone 4 MG in SYRINGE 0 ML IV SCH (08:03)
[2023-01-05] MEDS: NYSTATIN SUSP 500,000 U/5 ML UDC PO SCH ×4 (08:03→21:03)
[2023-01-05] MEDS: PANTOprazole 40 MG TAB PO SCH (08:04)
[2023-01-05] MEDS: CYANOCOBALAMIN (B-12) 500 MCG TABLET PO SCH (08:04)
[2023-01-05] MEDS: MULTIVITAMIN TAB PO SCH (08:04)
[2023-01-05] MEDS: FLUTICASONE FUROATE 100MCG 14 PUFFS/INHALER INH SCH (08:04)
[2023-01-05] MEDS: UMECLIDINIUM/VILANTEROL 62.5/25MCG 7 PUFFS/INHALER INH SCH (08:04)
[2023-01-05] MEDS: POTASSIUM CHLORIDE CRTAB 20 MEQ TABCR PO SCH (08:07)
[2023-01-05] MEDS: PREGABALIN 75 MG CAP PO SCH ×2 (08:07→21:03)
[2023-01-05] MEDS: LANTUS PER UNIT CHARGE SQ SCH (08:21)
[2023-01-05] MEDS: INSULIN ASPART PER UNIT CHARGE SC SCH ×4 (08:21→21:03)
[2023-01-05] MEDS: MICONAZOLE NITRATE POWDER 85 GM EXT PRN (09:40)
--- NOTE | 2023-01-05 12:44 | Hospitalist Progress Note ---
Date of Service January 05, 2023 Assessment & Plan (1) Acute CVA (cerebrovascular accident): (2) Cerebellar hemorrhage, acute: (3) Ataxia due to acute cerebrovascular disease: (4) Diabetes mellitus: (5) CAD (coronary artery disease): (6) Peripheral artery disease: (7) ERINN (obstructive sleep apnea): (8) HTN (hypertension): Plan This is an 87-year-old male who has significant past medical history of chronic respiratory failure with hypoxia, COPD, ERINN on CPAP, T2DM, HTN, chronic diastolic CHF, bicuspid aortic valve, history of TAVR, CAD with hx of CABG x 4 with atherosclerosis of bypass vessels, peripheral vascular disease status post R common femoral endarterectomy, B/L common iliac stenting, carotid artery stenosis s/p b/l thromboendarterectomy w/ patch, GERD, pneumoconiosis, BPH, chronic back pain, history of tobacco abuse who presents ED secondary to feeling x2 days. Found to have acute left cerebellar stroke but unfortunately had hemorrhagic transformation while on dual antiplatelets for his stroke. CTA head/neck 12/29 1. 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 2. Likely hemodynamically significant stenosis of the right internal carotid artery. MRI 12/29brain Findings concerning for acute ischemic injury in the left cerebellum with extensive cytotoxic edema, without evidence of hemorrhagic transformation. Multiple remote ischemic injuries of the cerebellum. Moderate nonspecific white matter changes. Moderate ventriculomegaly CT head 01/03 1. Intraparenchymal bleed in the LEFT cerebellum, which now measures approximately 1.2 x 1.1 cm (previously 1.1 x 0.7 cm).Adjacent encephalomalacia developing in the LEFT cerebellum, consistent with developing infarct. 2. Partial effacement of the fourth ventricle. No hydrocephalus at this time. CT head 01/04 1. Stable left cerebellar intrarectal hemorrhage with surrounding edema. 2. There is persistence mass-effect of the fourth ventricle. No hydrocephalus. 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 Seen by neuro and was on dual antiplatelets with chemoprophylaxis as per neuro recommendation however patient was noted to be lethargic for which repeat CT was done which showed hemorrhagic transformation. Repeat CT head on January 04 shows stability. Patient was reevaluated with neurology on January 04 and recommended trial of Decadron for hemorrhage/edema/headache. -Continue to hold dual antiplatelets and chemoprophylaxis until blood has resolved per neurology -Trial of Decadron taper -Continue neurochecks. -Holter monitor/zio patch as an outpatient- Spoke with cardio who will arrange the monitor once discharged. Continue tele in house -Repeat echo as OP with cardio -Neuro follow-up in 4-6 weeks -Vascular surgery followup for carotid stenosis (not related to current presentation) - Continue scheduled Tylenol and Decadron trial. -PT OT eval and speech evaluation HTN- BP has improved with addition of losartan. Continue Coreg, losartan, torsemide and hydralazine prn. 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 [place], will need close follow-up as outpatient DVT ppx: SCD. Contraindicated in setting of hemorrhage transformation of stroke Dispo: PT OT recommends rehab. Anticipate discharge to rehab when stable. Plan is to discharge to [facility] Updated and daughter at bedside Time spent evaluating patient, direct bedside care, chart review, placing orders, interpretation of diagnostic studies, discussion with consultants, patient, and family members, as well as other required patient management activities is 60 minutes Please note the above document was generated using voice recognition software. It may contain grammatical, syntax or spelling errors. Any formal questions or concerns about the content, text or information contained within the body of this dictation should be directly addressed to the provider for clarification Admission and Anticipated Discharge Date Admission Date: December 29, 2022 Subjective Patient seen and examined at bedside. Is lying in the bed comfortably; he is closing his eyes but opens on verbal stimuli. He is able to follow simple commands. Reports pain at the back of his head. Review of Systems Review of Systems: All systems reviewed & are unremarkable except as noted in Subjective Physical Exam Physical Exam: General: Lying in bed, not in acute distress, on NC HEENT: EOMI, ASHLEY, MMM Chest: Clear breath sounds bilaterally, no wheezes or crackles CVS: Regular rate and rhythm, normal heart sounds, no murmur Abdomen: Soft, non tender, not distended, normal bowel sounds Neuro: Awake, alert, oriented, conversing appropriately, dysarthria, right facial droop, follows simple commands. Left-sided ataxia Extremities: No cyanosis, clubbing or edema Psych: Normal mood, calm, cooperative Results & Data Results & Data Vital Signs (Past 12 Hours) Vital Signs Temp Pulse Pulse Resp BP Pulse Ox O2 Del Method 01/05/23 11:30 36.8 C 63 18 130/75 94 Nasal Cannula 01/05/23 08:00 Nasal Cannula 01/05/23 07:29 62 01/05/23 07:29 36.7 C 62 16 126/73 97 Nasal Cannula 01/05/23 05:16 36.4 C L 60 16 160/74 H 94 CPAP 01/05/23 03:00 59 L 90 O2 Flow Rate 01/05/23 11:30 2 01/05/23 08:00 2 01/05/23 07:29 01/05/23 07:29 2 01/05/23 05:16 7 01/05/23 03:00 3 Laboratory Results Laboratory Results WBC 6.91 K/ul (4.8-10.8) 01/05/23 06:51 RBC 4.60 M/uL (4.70-6.10) L 01/05/23 06:51 Hgb 13.7 g/dl (14.0-18.0) L 01/05/23 06:51 Hct 39.4 % (42.0-52.0) L 01/05/23 06:51 MCV 85.7 fL (80.0-100.0) 01/05/23 06:51 MCH 29.8 pg (25.0-34.0) 01/05/23 06:51 MCHC 34.8 g/dL (32.0-36.0) 01/05/23 06:51 RDW Std Deviation 52.9 fL (36.4-46.3) H 01/05/23 06:51 RDW Coeff of Maryan 17.0 % (11.5-14.5) H 01/05/23 06:51 Plt Count 147 K/uL (130-400) 01/05/23 06:51 MPV 9.5 fL (9.4-12.4) 01/05/23 06:51 Immature Gran % (Auto) 0.2 % 01/01/23 05:20 Neut % (Auto) 60.7 % 01/01/23 05:20 Lymph % (Auto) 27.5 % 01/01/23 05:20 [place] % (Auto) 9.4 % 01/01/23 05:20 Eos % (Auto) 1.9 % 01/01/23 05:20 Baso % (Auto) 0.3 % 01/01/23 05:20 Neut # (Auto) 3.79 K/uL (1.40-6.50) 01/01/23 05:20 Lymph # (Auto) 1.72 K/uL (1.2-3.4) 01/01/23 05:20 [place] # (Auto) 0.59 K/uL (0.11-0.59) 01/01/23 05:20 Eos # (Auto) 0.12 K/uL (0-0.50) 01/01/23 05:20 Baso # (Auto) 0.02 K/uL (0-0.2) 01/01/23 05:20 Immature Gran # (Auto) 0.01 K/uL (0.01-0.20) 01/01/23 05:20 PT 11.5 Seconds (9.0-12.0) 12/29/22 12:05 INR 1.1 (0.9-1.1) 12/29/22 12:05 APTT 27.9 Seconds (21.0-31.0) 12/29/22 12:05 PTT Ratio 1.0 12/29/22 12:05 Sodium 136 mmol/L (136-145) 01/05/23 06:51 Potassium 4.6 mmol/L (3.5-5.1) 01/05/23 06:51 Chloride 102 mmol/L (98-107) 01/05/23 06:51 Carbon Dioxide 27 mmol/L (21-32) 01/05/23 06:51 Anion Gap 7 (3-11) 01/05/23 06:51 BUN 23 mg/dl (6-23) 01/05/23 06:51 Creatinine 0.66 mg/dl (0.6-1.4) 01/05/23 06:51 Est Cr Clr Drug Dosing 80.5 ml/min 01/05/23 06:51 Est GFR ( Amer) 101.5 ml/min 01/05/23 06:51 Est GFR (Non-Af Amer) 87.5 ml/min 01/05/23 06:51 BUN/Creatinine Ratio 34.8 (10-20) H 01/05/23 06:51 Glucose 193 mg/dl (70-99(Fasting)) H 01/05/23 06:51 POC Glucose 191 mg/dl (70-99) H 01/05/23 11:39 Estimat Average Glucose 171 mg/dl 12/30/22 05:27 Hemoglobin A1c 7.6 % (4.5-5.6) H 12/30/22 05:27 Calcium 9.8 mg/dl (8.6-10.3) 01/05/23 06:51 Phosphorus 3.6 mg/dl (2.5-4.9) 01/05/23 06:51 Magnesium 2.1 mg/dl (1.7-2.4) 01/05/23 06:51 Total Bilirubin 0.6 mg/dl (0.2-1.0) 12/29/22 12:05 AST 24 U/L (13-39) 12/29/22 12:05 ALT 24 U/L (7-52) 12/29/22 12:05 Alkaline Phosphatase 46 U/L (34-104) 12/29/22 12:05 Troponin I High Sens 6.8 pg/ml (0-20) 12/29/22 12:05 Total Protein 7.3 gm/dl (6.0-8.3) 12/29/22 12:05 Albumin 4.3 gm/dl (3.4-5.0) 12/29/22 12:05 Globulin 3.0 gm/dl (2.5-4.0) 12/29/22 12:05 Albumin/Globulin Ratio 1.4 (0.9-2) 12/29/22 12:05 Triglycerides 355 mg/dl (0-150) H 12/30/22 05:27 Cholesterol 89 mg/dl (0-200) 12/30/22 05:27 LDL Cholesterol, Calc TNP 12/30/22 05:27 VLDL Cholesterol, Calc 71 mg/dl (0-30) H 12/30/22 05:27 HDL Cholesterol 27 mg/dl 12/30/22 05:27 Cholesterol/HDL Ratio 3.3 (0-5) 12/30/22 05:27 Urine Color Yellow 12/29/22 20:00 Urine Appearance Clear (Clear) 12/29/22 20:00 Urine pH 5.0 (4.5-7.5) 12/29/22 20:00 Ur Specific [place] 1.023 (1.000-1.030) 12/29/22 20:00 Urine Protein Negative (Negative) 12/29/22 20:00 Urine Glucose (UA) Negative (Negative) 12/29/22 20:00 Urine Ketones Negative (Negative) 12/29/22 20:00 Urine Blood Negative (Negative) 12/29/22 20:00 Urine Nitrite Negative (Negative) 12/29/22 20:00 Urine Bilirubin Negative (Negative) 12/29/22 20:00 Urine Urobilinogen Negative (Negative) 12/29/22 20:00 Ur Leukocyte Esterase Negative (Negative) 12/29/22 20:00 SARS-CoV-2, RNA, NAAT NEGATIVE (NEGATIVE) 12/29/22 15:10 Impressions Chest X-Ray 12/29/22 12:09 XR chest 1V portable CLINICAL HISTORY: neuro deficit, acute stroke suspected TECHNIQUE: Single frontal radiograph of the chest was obtained. Comparison: Comparison is made to chest radiograph 05/12/2022 FINDINGS: Median sternotomy wires are unchanged. Cardiomegaly is noted. The lungs are clear. No evidence of pleural effusion or pneumothorax. IMPRESSION: No acute chest disease. Cardiomegaly is noted. ACT 112: Negative or not required by law. Electronically signed by: Warren Latham M.D. 12/29/2022 12:39 PM Head CTA 12/29/22 12:09 CT angio neck with con, CT angio head w con, CT head/brain wo con CLINICAL HISTORY: neuro deficit, acute stroke suspected TECHNIQUE: Contiguous axial CT images of the head were acquired from the base of the skull to the vertex without intravenous contrast administration. CT angiography of the head and neck was performed following intravenous administration of iodinated contrast. Coronal and sagittal MIPS were obtained from the axial data set and were submitted for review. Automated dose lowering techniques and/or adjustment according to patient size were utilized for this examination. All measurements were calculated based on NASCET criteria. CT DOSE: 1085.20 mGy.cm Comparison: None available at the time of this dictation. FINDINGS: CT head: Loss of khalil-white differentiation is seen in the left cerebellum with associated edema and mass effect upon the fourth ventricle. No herniation is seen. Mild diffuse encephalomalacia is seen. No intracranial hemorrhage. Findings of old infarct are seen in the right occipital lobe and right cerebellum. Lungs and soft tissues are unremarkable. Mediastinal lymphadenopathy is seen. CTA Neck: A 3 vessel aortic arch is shown. Atherosclerotic plaque is present in the aortic arch and at the origin of the great vessels. Likely hemodynamically significant stenosis is seen in the right internal carotid artery origin due to surrounding atherosclerosis, however there is no yousif occlusion. The left vertebral artery is dominant. CTA Head: The anterior and posterior cerebral circulations are patent. origin of the left posterior cerebral artery is seen. There is attenuation of the distal left superior cerebellar artery. IMPRESSION: 1. 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 2. Likely hemodynamically significant stenosis of the right internal carotid artery. Assessment of stenosis of the internal carotid arteries is based on NASCET criteria. ACT 112: Negative or not required by law. Electronically signed by: Warren Latham M.D. 12/29/2022 2:16 PM Neck CTA 12/29/22 12:09 CT angio neck with con, CT angio head w con, CT head/brain wo con CLINICAL HISTORY: neuro deficit, acute stroke suspected TECHNIQUE: Contiguous axial CT images of the head were acquired from the base of the skull to the vertex without intravenous contrast administration. CT angiography of the head and neck was performed following intravenous ad ministration of iodinated contrast. Coronal and sagittal MIPS were obtained from the axial data set and were submitted for review. Automated dose lowering techniques and/or adjustment according to patient size were utilized for this examination. All measurements were calculated based on NASCET criteria. CT DOSE: 1085.20 mGy.cm Comparison: None available at the time of this dictation. FINDINGS: CT head: Loss of khalil-white differentiation is seen in the left cerebellum with associated edema and mass effect upon the fourth ventricle. No herniation is seen. Mild diffuse encephalomalacia is seen. No intracranial hemorrhage. Findings of old infarct are seen in the right occipital lobe and right cerebellum. Lungs and soft tissues are unremarkable. Mediastinal lymphadenopathy is seen. CTA Neck: A 3 vessel aortic arch is shown. Atherosclerotic plaque is present in the aortic arch and at the origin of the great vessels. Likely hemodynamically significant stenosis is seen in the right internal carotid artery origin due to surrounding atherosclerosis, however there is no yousif occlusion. The left vertebral artery is dominant. CTA Head: The anterior and posterior cerebral circulations are patent. origin of the left posterior cerebral artery is seen. There is attenuation of the distal left superior cerebellar artery. IMPRESSION: 1. 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 2. Likely hemodynamically significant stenosis of the right internal carotid artery. Assessment of stenosis of the internal carotid arteries is based on NASCET criteria. ACT 112: Negative or not required by law. Electronically signed by: Warren Latham M.D. 12/29/2022 2:16 PM Brain MRI 12/29/22 19:14 Exam(s): MRI HEAD W/WO Contrast IV Amt: 8.5ml gadavist EXAM: MR Head Without and With Intravenous Contrast CLINICAL HISTORY: Reason for exam: cva. TECHNIQUE: Magnetic resonance images of the head/brain without and with intravenous contrast in multiple planes. CONTRAST: Patient received 8.5ml gadavist of IV contrast COMPARISON: Comparison made to prior CT angiogram of the head from October 29, 2022. FINDINGS: Brain: There is an acute ischemic injury in the left cerebellum with extensive cytotoxic edema, without evidence of hemorrhagic transformation. Multiple remote ischemic injuries of the cerebellum bilaterally. Moderate nonspecific white matter changes. The flow voids at the base of the right are intact. No evidence of abnormal enhancement. Ventricles: Motor ventriculomegaly. Bones/joints: Unremarkable. Sinuses: Unremarkable as visualized. No acute sinusitis. Mastoid air cells: Unremarkable as visualized. No mastoid effusion. Orbits: Bilateral lens replacements. IMPRESSION: Findings concerning for acute ischemic injury in the left cerebellum with extensive cytotoxic edema, without evidence of hemorrhagic transformation. Multiple remote ischemic injuries of the cerebellum. Moderate nonspecific white matter changes. Moderate ventriculomegaly. Electronically signed by: Isabel Santos MD 12/29/22 23:[address] 01/04/23 04:00 Exam(s): CT HEAD Without Contrast EXAM: CT Head Without Intravenous Contrast CLINICAL HISTORY: Intracranial hemorrhage. TECHNIQUE: Axial computed tomography images of the head/brain without intravenous contrast. CTDI is 37.42 mGy and DLP is 624.41 mGy-cm. Automated exposure control was utilized for the study. A dose lowering technique was utilized adhering to the principles of ALARA. COMPARISON: CT head 01/03/2023 FINDINGS: Brain: Stable left cerebellar intrarectal hemorrhage with surrounding edema. Moderate periventricular white matter hypodensities are most consistent with chronic microangiopathy. No midline shift. Ventricles: There is persistence mass-effect of the fourth ventricle. No hydrocephalus. Bones/joints: Unremarkable. No acute fracture. Soft tissues: Unremarkable. Sinuses: Unremarkable as visualized. No acute sinusitis. Mastoid air cells: Unremarkable as visualized. No mastoid effusion. IMPRESSION: 1. Stable left cerebellar intrarectal hemorrhage with surrounding edema. 2. There is persistence mass-effect of the fourth ventricle. No hydrocephalus. Electronically signed by: Hina Marie MD 01/04/23 05:46 AM (4) Diabetes mellitus Diabetes mellitus complication status: without complication Diabetes mellitus mcc insulin use: without mcc use Diabetes mellitus type: type 2 Qualified Code(s): E11.9 - Type 2 diabetes mellitus without complications
[2023-01-05] MEDS: POLYETHYLENE (MIRALAX) 17 GM PACK PO PRN (13:01)
[2023-01-05] MEDS: DOCUSATE SODIUM/SENNA 50/8.6MG TAB PO SCH (21:03)
[2023-01-05] MEDS: ROSUVASTATIN CALCIUM 20 MG TAB PO SCH (21:04)
[2023-01-06] MEDS: ACETAMINOPHEN 500 MG TAB PO SCH ×2 (06:18→13:39)
[2023-01-06] MEDS: LEVOTHYROXINE SODIUM 25 MCG TABLET PO SCH (06:18)
[2023-01-06 07:21] LABS: Basophils # (auto) 0.01 K/uL (0-0.2); Basophils % (auto) 0.1 %; Eosinophils # (auto) 0.03 K/uL (0-0.50); Eosinophils % (auto) 0.4 %; Hematocrit (blood only) 40.5 % (42.0-52.0); Hemoglobin 13.6 g/dl (14.0-18.0); Immature Granulocytes # (auto) 0.04 K/uL (0.01-0.20); Immature Granulocytes % (auto) 0.5 %; Lymphocytes # (auto) 1.85 K/uL (1.2-3.4); Lymphocytes % (auto) 25.1 %; Mean Corpuscular Hemoglobin 29.1 pg (25.0-34.0); Mean Corpuscular Hgb Conc 33.6 g/dL (32.0-36.0); Mean Corpuscular Volume 86.5 fL (80.0-100.0); Mean Platelet Volume 9.5 fL (9.4-12.4); Monocytes # (auto) 0.66 K/uL (0.11-0.59); Monocytes % (auto) 8.9 %; Neutrophils # (auto) 4.79 K/uL (1.40-6.50); Platelet Count 159 K/uL (130-400); RDW Coefficient of Variation 16.5 % (11.5-14.5); RDW Standard Deviation 51.9 fL (36.4-46.3); Red Blood Count 4.68 M/uL (4.70-6.10); White Blood Count 7.38 K/ul (4.8-10.8)
--- NOTE | 2023-01-06 08:06 | Neurology Progress Note ---
Date of Service January 06, 2023 Assessment & Plan (1) Acute CVA (cerebrovascular accident): (2) Cerebellar hemorrhage, acute: (3) Ataxia due to acute cerebrovascular disease: Plan This patient has suffered an acute left cerebellar ischemic infarct ( left superior cerebral artery stenosis) December 29 . He was put on aspirin and Plavix. As of late January 03 he had a hemorrhagic transformation of the stroke in the left cerebellar hemisphere with some mass effect. Currently mental status is unremarkable and he still has some residual dysarthria. His right facial droop is somewhat improved but he still has ataxia of the left upper extremity. There is likely some extension into the right brainstem since he has a right facial droop. He has been stable and Neurologically cleared for transfer to rehabilitation hospital. Recommendations: 1. keep off antiplatelet medication or anticoagulation 2. Decrease Decadron to 2 mg IV daily x3 days then discontinue. 3. increase activity as able with physical, speech occupational, and speech therapy. 5. Repeat CT scan of the head in 2-3 weeks. No reintroduction of antiplatelet medication until the blood has resorbed. At that time we can decide what to reinitiate Overall, I spent a total of 35 minutes with this case including review of records, review of MRI and CT films, direct evaluation the patient at bedside, report generation, and discussion of the case with the patient and RN at bedside, and Dr. Espitia, including differential diagnosis and treatment options. Admission and Anticipated Discharge Date Admission Date: December 29, 2022 Subjective Patient complains of some occipital-cervical junction pain over the last few days. It is not increased. He feels that his Movement in the limbs is about the same. CBC this morning is stable compared to previous. Chem profile is pending. He is afebrile blood pressure is 187/92 this morning. Results & Data Vital Signs (Past 12 Hours) Vital Signs Temp Pulse Pulse Resp BP Pulse Ox O2 Del Method 01/06/23 07:27 56 L 01/06/23 03:46 36.3 C L 57 L 18 153/72 H 95 CPAP 01/06/23 02:40 16 01/06/23 00:00 62 01/05/23 22:41 36.5 C 61 18 156/72 H 92 CPAP 01/05/23 22:31 66 23 94 01/05/23 21:00 Nasal Cannula 01/05/23 20:05 36.6 C 67 18 157/73 H 95 Nasal Cannula O2 Flow Rate 01/06/23 07:27 01/06/23 03:46 01/06/23 02:40 3 01/06/23 00:00 01/05/23 22:41 01/05/23 22:31 3 01/05/23 21:00 2 01/05/23 20:05 2 Exam (Neuro) Physical Exam: He is awake and alert. Speech is soft but intelligible. He does not have as much dysarthria as he did January 04. mood is reasonable and affect is appropriate. He follows one-step commands seems oriented. Extraocular muscles are without nystagmus. He has a mild right facial droop of the of the mouth, again, seemingly improved compared to January 04. Coordination is normal in the right upper extremity. In the left upper extremity he has ataxia. There is clumsiness in the left hand. Motor strength is closer to 5/5 in both upper extremities diffusely although the left is slightly weaker than the right. Leg strength is 4+/5 diffusely bilaterally. PG Care Time/CCT Total # of Minutes Spent Total Time Spent with Patient: Total time spent is greater than 50% in coordination of care (as documented) at patient's floor/unit and/or counseling patient: Coding Level of Care Code 87237 SUB INP/OBS CARE 2/35MIN Diagnoses Acute CVA (cerebrovascular accident) I63.9 Cerebellar hemorrhage, acute I61.4 Ataxia due to acute cerebrovascular disease I67.89; R27.0 Time Spent (min) 35
[2023-01-06] MEDS: NYSTATIN SUSP 500,000 U/5 ML UDC PO SCH ×2 (08:16→12:22)
[2023-01-06] MEDS: FLUTICASONE FUROATE 100MCG 14 PUFFS/INHALER INH SCH (08:16)
[2023-01-06] MEDS: carvediloL 3.125 MG TAB PO SCH (08:16)
[2023-01-06] MEDS: MULTIVITAMIN TAB PO SCH (08:17)
[2023-01-06] MEDS: CYANOCOBALAMIN (B-12) 500 MCG TABLET PO SCH (08:17)
[2023-01-06] MEDS: dexAMETHasone 4 MG in SYRINGE 0 ML IV SCH (08:17)
[2023-01-06] MEDS: PANTOprazole 40 MG TAB PO SCH (08:17)
[2023-01-06] MEDS: LOSARTAN POTASSIUM 25 MG TAB PO SCH (08:18)
[2023-01-06] MEDS: LANTUS PER UNIT CHARGE SQ SCH (08:28)
[2023-01-06] MEDS: POTASSIUM CHLORIDE CRTAB 20 MEQ TABCR PO SCH (08:29)
[2023-01-06] MEDS: POLYETHYLENE (MIRALAX) 17 GM PACK PO PRN (08:29)
[2023-01-06] MEDS: PREGABALIN 75 MG CAP PO SCH (08:29)
[2023-01-06] MEDS: INSULIN ASPART PER UNIT CHARGE SC SCH ×2 (08:29→12:25)
[2023-01-06] MEDS: UMECLIDINIUM/VILANTEROL 62.5/25MCG 7 PUFFS/INHALER INH SCH (08:31)
[2023-01-06 11:21] LABS: Calcium 10.1 mg/dl (8.6-10.3); Potassium 4.7 mmol/L (3.5-5.1)
[2023-01-06 11:27] LABS: BUN Creatinine Ratio 32.3 (10-20); Creatinine Clr Calc Pharmacy 80.1 ml/min; Est GFR (African American) 102.1 ml/min; Est GFR (Non-African American) 88.1 ml/min
--- NOTE | 2023-01-06 12:37 | Discharge Summary ---
Date of Service January 06, 2023 Admission HPI Per Admitting Provider This is an 87-year-old male who has significant past medical history of chronic respiratory failure with hypoxia, COPD, ERINN on CPAP, T2DM, HTN, chronic diastolic CHF, bicuspid aortic valve, history of TAVR, CAD with hx of CABG x 4 with atherosclerosis of bypass vessels, peripheral vascular disease status post R common femoral endarterectomy, B/L common iliac stenting, carotid artery stenosis s/p b/l thromboendarterectomy w/ patch, GERD, pneumoconiosis, BPH, chronic back pain, history of tobacco abuse who presents ED secondary to feeling x2 days. Multiple family members at bedside. Patient was in his normal state of health until Tuesday. at bedside he started complaining of being dizzy and was having difficulty walking. He also was favoring his left side. Family members were assisting patient out of bed into the chair, but he persistently refused to come to ER for further evaluation. Patient states he overall feels, "terrible." He complains of dizziness, headache and chronic abdominal pain. He also has chronic head and neck pain. He also complains of left-sided weakness. Family reports slight slurred speech and they definitely feel he is not himself or his baseline. They deny any facial droop or loss of bowel bladder. Denies any falls. Patient is alert and oriented x3. He is very hard of hearing. He has no prior history of stroke. Overall patient has decreased appetite and increased nausea since Tuesday. At baseline patient ambulates with a cane. Admission Exam Per Admitting Provider Neuro: AAOx4, PERRLA, aphasia, left side weakness Upper extremity more pronounced. HEENT: head normocephalic, moist mucus membranes CV: S1/S2+ , no murmurs Resp: Air entry present bilaterally. GI: Abdomen soft non tender . Musculoskeletal: No gait disturbances Skin: (-) rashes , (-) erythema. 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 Left-sided ataxia Extremities: No cyanosis, clubbing or edema Psych: Normal mood, calm, cooperative Discharge Data Allergies Allergy/AdvReac Type Severity Reaction Status Date / Time codeine AdvReac Mild Anxiety Verified 05/26/22 10:56 symptoms hydrocodone AdvReac Mild Anxiety, Verified 05/26/22 10:56 insomnia Consultations 12/29/22 14:54 ED Decision to Admit Stat 12/29/22 15:05 Consult Neurology Routine 01/04/23 07:51 Consult Neurology Routine Ordered Studies 12/29/22 12:09 CT angio head w con Stat CT angio neck with con Stat CT head/brain wo con Stat 12/29/22 19:14 MR brain wo/w con Routine 12/31/22 09:15 CT head/brain wo con Urgent 01/03/23 16:03 CT head/brain wo con Routine 01/04/23 04:00 CT head/brain wo con Urgent Hospital Course (1) Acute CVA (cerebrovascular accident): (2) Cerebellar hemorrhage, acute: (3) Ataxia due to acute cerebrovascular disease: (4) Diabetes mellitus: (5) CAD (coronary artery disease): (6) Peripheral artery disease: (7) ERINN (obstructive sleep apnea): (8) HTN (hypertension): Plan 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 Found to have acute left cerebellar stroke. Neurology was consulted. Patient was started on dual antiplatelet agents. PT OT evaluation was done. Patient was noted to be increasingly lethargic on January 03, 2023; CT head was done which showed hemorrhagic transformation and mass effect. Inpatient neurology was again consulted. Recommended to stop anticoagulation. He was started on dexamethasone 4 mg for the mass effect. Patient was also sta rted on Tylenol for pain control. Patient was monitored for next 2 days; he was more interactive and participated in PT and OT sessions. At discharge, discussion was done with neurology. Patient to be placed on dexamethasone 2 mg for 3 more days. He will also require follow-up CT head in 2 to 3 weeks time to follow-up on the resolution of the bleeding. He can then be restarted on antiplatelet agents. Patient was discharged to rehab with ultimate goal to go back home with his family. Discharge instructions were given to his and daughter at bedside. Please note the above document was generated using voice recognition software. It may contain grammatical, syntax or spelling errors. Any formal questions or concerns about the content, text or information contained within the body of this dictation should be directly addressed to the provider for clarification Total Time Total Time Spent Total Time Spent (In Minutes): 45 Total Time Includes: Examination of the Patient, Discharge Planning, Medication Reconciliation, Communication With Other Providers and Other Discharge Plan Discharge Items Patient Disposition: Transfer Care Home Fac Reason For Visit: SUBACUTE CVA Discharge Diagnosis: (1) Acute CVA (cerebrovascular accident): (2) Cerebellar hemorrhage, acute: (3) Ataxia due to acute cerebrovascular disease: Activity: Resume your previous activity Non-emergency contact: Primary Care Provider Call non-emergency contact if: you have any medication questions and your sy mptoms worsen Follow-up/Referrals: Jae Anthony MD [Primary Care Provider] - Daniel Mendoza DO [Sealer Operator] - (Please make arrangements with Cardiology for Zio patch placement/enrollment.) Diet: Regular and Carb Consistent or DM2 Diet Texture: Dental soft (bite-sized) Addtl Attending Provider Instructions: You were admitted to the hospital with acute left cerebellar ischemic infarct ( left superior cerebral artery stenosis) on December 29. You were placed on aspirin and Plavix. On the CT head done on January 03, you were found to have hemorrhagic transformation of the stroke in the left cerebellar hemisphere with some mass effect. You are prescribed Decadron 2 mg daily for 3 days as per neurology recomme ndation. Increase activity as able with physical, speech occupational, and speech therapy. Repeat CT scan of the head in 2-3 weeks. No reintroduction of antiplatelet medication until the blood has resorbed. Pending Studies at Discharge: No Stand-Alone Forms: My [facility] [employer], Medications to Prevent Stroke Skilled Items Patient informed of condition?: Yes DNR: Yes Discharge Level of Care: Skilled Communicable Disease: No Discharge Prognosis: Stable Lines: None Urinary Catheter: No Medications and DC Order Prescriptions: New acetaminophen [Tylenol Extra Strength] 500 mg Tablet 1,000 mg PO Q8 PRN (Reason: pain) Qty: 60 0RF losartan 25 mg Tablet 50 mg PO DAILY Qty: 60 0RF dexamethasone 2 mg tablet 2 mg PO DAILY Qty: 3 0RF Continued multivitamin Tablet 1 tab PO QAM Qty: 30 0RF metformin 500 mg tablet 1,000 mg PO BID Qty: 60 0RF potassium chloride 10 mEq capsule, extended release 10 meq PO QAM Qty: 30 0RF carvedilol 12.5 mg tablet 12.5 mg PO BID Qty: 60 0RF torsemide 20 mg tablet 20 mg PO QAM Qty: 30 0RF cyanocobalamin (vitamin B-12) [Vitamin B-12] 1,000 mcg Tablet 1,000 mcg PO QAM Qty: 30 0RF levothyroxine 25 mcg tablet 25 mcg PO QAM Qty: 30 0RF pantoprazole 40 mg tablet,delayed release (DR/EC) 40 mg PO QAM Qty: 30 0RF magnesium oxide 500 mg Tablet 500 mg PO QAM Qty: 30 0RF nitroglycerin [Nitrostat] 0.4 mg Tablet, Sublingual 0.4 mg sublingual UD Qty: 30 0RF rosuvastatin 20 mg tablet 40 mg PO QPM Qty: 30 0RF pregabalin [Lyrica] 75 mg Capsule 75 mg PO BID Qty: 60 0RF Trelegy Ellipta 100-62.5-25 mcg blister with device 1 inh inhalation QAM Qty: 60 0RF Discontinued clopidogrel 75 mg tablet 75 mg PO QAM aspirin 81 mg Tablet,Delayed Release (Dr/Ec) 81 mg PO QAM acetaminophen [Acetaminophen Extra Strength] 500 mg Tablet 1,000 mg PO BID tramadol 50 mg tablet 50 mg PO HS PRN (Reason: Pain) Discharge Orders: Discharge Order (Routine); Ordered 01/06/23 Ordered By: Audi Butterfield/Other Patient Handouts: Managing Type 2 Diabetes Admission Data Admit Date/Time: 12/29/22 14:41 Attending Provider: Audi Espitia Admit Provider: Kwesi Velasquez Primary Care Provider: Jae Anthony Other Providers: Stephanie Haney ; Kwesi Velasquez ; Danielito Vivar ; Rolf Rodriguez Other Interventions: Discharge Summary Assessment (RN) Last Done: 01/06/23 11:53
== END 2023-01-06 13:56 | DRG 64 ==
LOC: ED 12:00 → 2S 14:41 → SUATTDRO 14:41 → 2S 17:37 → 2N 01-02 17:44

== ENCOUNTER 2023-02-04 10:06 | Inpatient (IN) ==
[2023-02-04 10:36] LABS: iSTAT Creatinine 0.7 mg/dl (0.6-1.3); iSTAT Hemoglobin 12.2 g/dl (14.0-18.0); iSTAT Ionized Calcium 1.18 mmol/l (1.12-1.32); iSTAT Potassium 4.2 mmol/L (3.3-5.0)
[2023-02-04] MEDS ORDERED: OPTIRAY 320 125ml IV ONE (10:40)
[2023-02-04 10:41] LABS: Basophils # (auto) 0.02 K/uL (0-0.2); Basophils % (auto) 0.5 %; Eosinophils # (auto) 0.11 K/uL (0-0.50); Eosinophils % (auto) 2.7 %; Hematocrit (blood only) 35.7 % (42.0-52.0); Hemoglobin 11.9 g/dl (14.0-18.0); Immature Granulocytes # (auto) 0.05 K/uL (0.01-0.20); Immature Granulocytes % (auto) 1.2 %; Lymphocytes # (auto) 1.21 K/uL (1.2-3.4); Lymphocytes % (auto) 29.3 %; Mean Corpuscular Hemoglobin 30.1 pg (25.0-34.0); Mean Corpuscular Hgb Conc 33.3 g/dL (32.0-36.0); Mean Corpuscular Volume 90.2 fL (80.0-100.0); Mean Platelet Volume 9.3 fL (9.4-12.4); Monocytes # (auto) 0.44 K/uL (0.11-0.59); Monocytes % (auto) 10.7 %; Neutrophils % (auto) 55.6 %; Platelet Count 111 K/uL (130-400); RDW Coefficient of Variation 15.9 % (11.5-14.5); RDW Standard Deviation 51.8 fL (36.4-46.3); Red Blood Count 3.96 M/uL (4.70-6.10); White Blood Count 4.13 K/ul (4.8-10.8)
--- NOTE | 2023-02-04 10:47 | Emergency Department Note ---
Impression & Plan Left arm weakness, Dysarthria, Cerebellar stroke, Hypomagnesemia ED Provider Note ED Provider Note NAME: JOSELIN SCOTT AGE:87 SEX: Male : 1935 ARRIVES VIA: EMS INFORMANT: Patient ED PROVIDER(s): Jolanta Zuniga DO CHIEF COMPLAINT: Left arm weakness HPI: This is an 87-year-old male presents emergency department after waking up with left arm weakness. Patient states he felt well yesterday and arm seemed fine, and he felt well when he went to bed. He states he woke up around 8 AM and realized he could not move his left arm. He states left leg feels slightly weak also but he is able to move it. He was concern for possible stroke as he had a stroke at the end of November. Patient states he has been taking his medications as prescribed. He denies any fevers, chills, or other illness. He denies any falls or injury. PAST MEDICAL HISTORY:See Below PAST SURGICAL HISTORY:See Below FAMILY HISTORY:See Below SOCIAL HISTORY:See Below HOME MEDICATIONS:See Below ALLERGIES:See Below VITALS:See Below PHYSICAL EXAMINATION: GENERAL: alert, well appearing, well nourished, no distress, non-toxic EYE EXAM: normal conjunctiva, PERRL and EOM's grossly intact OROPHARYNX: no exudate, no erythema, lips, buccal mucosa, and tongue normal and mucous membranes are moist NECK: supple, no nuchal rigidity, no adenopathy, non-tender LUNGS: Clear to auscultation. Normal chest wall mechanics, no w/r/r HEART: no murmurs, S1 normal and S2 normal ABDOMEN: abdomen soft, non-tender, normo-active bowel sounds, no masses, no rebound or guarding. BACK: Back is symmetrical on inspection and there is no deformity, no midline tenderness, no CVA tenderness. SKIN: no rashes, petechiae, orbruising UPPER EXTREMITIES: upper extremities are grossly normal. FROM, nml pulses b/l. Third digit previously amputated and well-healed at [facility] on right hand. LOWER EXTREMITIES: No pitting edema. FROM, nml pulses b/l. NEURO EXAM: Normal sensorium, cranial nerves II-XII grossly intact, mild dysarthria, no facial droop,flaccid left upper extremity, right upper extremity with full range of motion and normal strength, no gross weakness of legs however LLE fatigues sooner than RLE. Gross sensation intact. No ataxia. Vital Signs: reviewed and remarkable Differential Diagnosis: CVA, ICH, mass, cerebral edema, occult trauma, as well as others were considered MEDICAL DECISION MAKING: THis is an 87 yo male who presents to the ER with LUE weakness and mild dysarthria noted. Last known well when patient went to bed last night around 10pm. Patient with recent hemorrhagic conversion of cva in November. Patient not a TNK candidate based on this. Labs drawn and sent, IV established, EKG and CXR performed and interpreted at bedside, and patient placed on telemetry. Patient sent urgently for CT/CTA. No ICH or residual blood products however patient now with evolving CVA in same area of cerebellum. Patient updated on results. Case discussed with hospitalist team and per their request with Dr. Vivar of neurology who recommended restarting plavix only and continue other stroke evaluation including MRI. VS stable in the ER. Patient also noted to have significant hypomagnesemia and was started on IV repletion while in the ER. Consultation(s): 1144: Discussed with Ahmet Chirinos hospitalist team. 1233: Discussed with Dr. Vivar, neurology. ER Treatment Provided: See below 1135: Family now bedside. Updated on CT findings. Diagnostics Interpreted By Me: -ECG: Normal sinus at 76, normal axis, normal intervals, nonspecific ST/T wave changes -Cardiac Monitoring: An order was placed for continuous cardiac monitoring. The monitor shows a rate of 78 with normal sinus rhythm. -Laboratory studies: As stated above and show below. -Imaging studies: CT head: no obvious ICH X-ray Chest: A single view study of the chest was reviewed and was negative for cardiomegaly, focal infiltrate, effusion, pulmonary edema, or wide mediastinum. Triage Nursing Note Reviewed Prior/Outside Records Reviewed - prior DC summary Past Med/Surg History Medical History Aortic stenosis s/p TAVR BPH (benign prostatic hyperplasia) CAD (coronary artery disease) CABG x 4 (2000) Stent x1 (2006) Cath (2011) - SVG to 1st diagonal 100% occluded, other grafts patent Carotid artery disease s/p Left CEA (2011), right (2012) Carotid artery stenosis Diabetes mellitus Dyslipidemia GERD (gastroesophageal reflux disease) HTN (hypertension) Hypothyroidism Obesity ERINN (obstructive sleep apnea) CPAP with O2 3.5L HS Rest pain of both lower extremities due to atherosclerosis Surgical History Amputated finger H/O repair of right rotator cuff H/O vascular surgery (05/26/22) Right Common Femoral Artery Endarterectomy,(Right) with bovine patch - Maurizio Montana MD sBilateral Iliac Stents(Bilateral) - Maurizio Montana MD History of anesthesia reaction Slow to wake History of cardiac cath Stent x1 (2006) History of CEA (carotid endarterectomy) Left - 2012 Right - 2013 History of cholecystectomy History of colonoscopy History of coronary artery bypass graft CABG x4 (2000) History of heart valve replacement AVR [facility] after 2006 Hx of cataract surgery S/P laminectomy with spinal fusion Back surgeries x2 S/P TURP Family History Brother Diabetes Coronary heart disease, Onset Age: 60 Brother Coronary heart disease, Onset Age: 50 Diabetes Mother Diabetes Social History Smoking Status: Former smoker packs per day: 4; Second Hand Exposure: No; Do You Dip or Chew Tobacco: No; Hx Alcohol Use: No Hx Substance Use: No Preferred Language: French Communication Ability: Effective Contact Worker Required: No Beliefs That Will Affect Care: None marital status: Current Living Situation: Spouse and Family current occupational status: retired Other Information That Helps Us Care for You: Yes Feels Safe at Home: Yes Safety Concerns: Feels Safe At This Time Assistive Devices: CPAP, Hospital Bed, Oxygen - at Night, Walker and Wheelchair Allergies Allergies Allergy/AdvReac Type Severity Reaction Status Date / Time codeine AdvReac Mild Anxiety Verified 05/26/22 10:56 symptoms hydrocodone AdvReac Mild Anxiety, Verified 05/26/22 10:56 insomnia Home Meds Home Medications Medication Instructions Recorded Confirmed metformin 500 mg tablet 500 mg PO BID 02/04/23 02/04/23 sennosides 8.6 mg-docusate sodium 2 tab-cap PO HS 02/04/23 02/04/23 50 mg tablet Previous Rx's Medication Instructions Recorded acetaminophen 500 mg tablet 1,000 mg PO Q8 PRN pain #60 tabs 01/06/23 (Tylenol Extra Strength) carvedilol 12.5 mg tablet 12.5 mg PO BID #60 tabs 01/06/23 cyanocobalamin (vitamin B-12) 1,000 mcg PO QAM #30 tabs 01/06/23 1,000 mcg tablet (Vitamin B-12) fluticasone fur. 100 mcg-umeclid 1 inh inhalation QAM #60 ea 01/06/23 62.5 mcg-vilant 25 mcg inhalat.powder (Trelegy Ellipta) levothyroxine 25 mcg tablet 25 mcg PO QAM #30 tabs 01/06/23 losartan 25 mg tablet 50 mg PO DAILY #60 tabs 01/06/23 multivitamin 1 tab PO QAM #30 tabs 01/06/23 nitroglycerin 0.4 mg sublingual 0.4 mg sublingual UD #30 tabs 01/06/23 tablet (Nitrostat) pantoprazole 40 mg tablet,delayed 40 mg PO QAM #30 tabs 01/06/23 release potassium chloride 10 mEq 10 meq PO QAM #30 caps 01/06/23 capsule,extended release pregabalin 75 mg capsule (Lyrica) 75 mg PO BID #60 caps 01/06/23 rosuvastatin 20 mg tablet 40 mg PO QPM #30 tabs 01/06/23 torsemide 20 mg tablet 20 mg PO QAM #30 tabs 01/06/23 Results & Data (ED) Vital Signs Vital Signs - 24 hr 02/04/23 10:07 02/04/23 12:13 02/04/23 11:30 Temperature 36.9 C Temperature Source Oral Pulse Rate 77 71 Pulse Rate from SpO2 Sensor Pulse Rhythm Regular Pulse Strength Normal Respiratory Rate 20 Respiratory Effort / Characteristics Non-Labored Spontaneous Respiratory Depth Normal Respiratory Pattern Regular Blood Pressure 172/78 H Blood Pressure Mean 109 Blood Pressure Position Sitting Pulse Oximetry 96 98 Oxygen Delivery Method Nasal Cannula Room Air Oxygen Flow Rate 2 Sepsis Recent Fever Within 48 Hours No Sepsis New/Unexplained Change in Mental Status No Sepsis Action Taken by Nursing No Action Required 02/04/23 11:30 Temperature Temperature Source Pulse Rate 68 Pulse Rate from SpO2 Sensor 68 Pulse Rhythm Pulse Strength Respiratory Rate 17 Respiratory Effort / Characteristics Respiratory Depth Respiratory Pattern Blood Pressure 138/70 Blood Pressure Mean 92 Blood Pressure Position Pulse Oximetry 98 Oxygen Delivery Method Room Air Oxygen Flow Rate Sepsis Recent Fever Within 48 Hours Sepsis New/Unexplained Change in Mental Status Sepsis Action Taken by Nursing Laboratory Data 02/04/23 10:15 02/04/23 10:15 Lab Results 02/04/23 02/04/23 02/04/23 Range/Units 10:14 10:15 10:15 WBC 4.13 L (4.8-10.8) K/ul RBC 3.96 L (4.70-6.10) M/uL Hgb 11.9 L (14.0-18.0) g/dl POC Hgb (14.0-18.0) g/dl Hct 35.7 L (42.0-52.0) % POC Hct (42-52) % MCV 90.2 (80.0-100.0) fL MCH 30.1 (25.0-34.0) pg MCHC 33.3 (32.0-36.0) g/dL RDW Std Deviation 51.8 H (36.4-46.3) fL RDW Coeff of Maryan 15.9 H (11.5-14.5) % Plt Count 111 L (130-400) K/uL MPV 9.3 L (9.4-12.4) fL Immature Gran % (Auto) 1.2 % Neut % (Auto) 55.6 % Lymph % (Auto) 29.3 % [place] % (Auto) 10.7 % Eos % (Auto) 2.7 % Baso % (Auto) 0.5 % Neut # (Auto) 2.30 (1.40-6.50) K/uL Lymph # (Auto) 1.21 (1.2-3.4) K/uL [place] # (Auto) 0.44 (0.11-0.59) K/uL Eos # (Auto) 0.11 (0-0.50) K/uL Baso # (Auto) 0.02 (0-0.2) K/uL Immature Gran # (Auto) 0.05 (0.01-0.20) K/uL PT 10.4 (9.0-12.0) Seconds INR 0.9 (0.9-1.1) APTT 26.5 (21.0-31.0) Seconds PTT Ratio 0.9 POC Sodium (135-144) mmol/L Sodium (136-145) mmol/L POC Potassium (3.3-5.0) mmol/L Potassium (3.5-5.1) mmol/L POC Chloride (101-112) mmol/L Chloride (98-107) mmol/L Carbon Dioxide (21-32) mmol/L POC Total CO2 (24-31) mmol/L Anion Gap (3-11) POC Anion Gap (16-25) mmol/L POC BUN (7-18) mg/dl BUN (6-23) mg/dl Creatinine (0.6-1.4) mg/dl POC Creatinine (0.6-1.3) mg/dl Est Cr Clr Drug Dosing Est GFR ( Amer) ml/min Est GFR (Non-Af Amer) ml/min BUN/Creatinine Ratio (10-20) Glucose (70-99(Fasting)) mg/dl POC Glucose 148 H (70-99) mg/dl POC Glucose (other) (70-99) mg/dl Calcium (8.6-10.3) mg/dl POC Ioniz Calcium Bia (1.12-1.32) mmol/l Magnesium (1.7-2.4) mg/dl Total Bilirubin (0.2-1.0) mg/dl AST (13-39) U/L ALT (7-52) U/L Alkaline Phosphatase (34-104) U/L Troponin I High Sens (0-20) pg/ml Total Protein (6.0-8.3) gm/dl Albumin (3.4-5.0) gm/dl Globulin (2.5-4.0) gm/dl Albumin/Globulin Ratio (0.9-2) SARS-CoV-2, RNA, NAAT (NEGATIVE) 02/04/23 02/04/23 02/04/23 Range/Units 10:15 10:24 10:26 WBC (4.8-10.8) K/ul RBC (4.70-6.10) M/uL Hgb (14.0-18.0) g/dl POC Hgb 12.2 L (14.0-18.0) g/dl Hct (42.0-52.0) % POC Hct 36 L (42-52) % MCV (80.0-100.0) fL MCH (25.0-34.0) pg MCHC (32.0-36.0) g/dL RDW Std Deviation (36.4-46.3) fL RDW Coeff of Maryan (11.5-14.5) % Plt Count (130-400) K/uL MPV (9.4-12.4) fL Immature Gran % (Auto) % Neut % (Auto) % Lymph % (Auto) % [place] % (Auto) % Eos % (Auto) % Baso % (Auto) % Neut # (Auto) (1.40-6.50) K/uL Lymph # (Auto) (1.2-3.4) K/uL [place] # (Auto) (0.11-0.59) K/uL Eos # (Auto) (0-0.50) K/uL Baso # (Auto) (0-0.2) K/uL Immature Gran # (Auto) (0.01-0.20) K/uL PT (9.0-12.0) Seconds INR (0.9-1.1) APTT (21.0-31.0) Seconds PTT Ratio POC Sodium 143 (135-144) mmol/L Sodium 143 (136-145) mmol/L POC Potassium 4.2 (3.3-5.0) mmol/L Potassium 4.2 (3.5-5.1) mmol/L POC Chloride 102 (101-112) mmol/L Chloride 105 (98-107) mmol/L Carbon Dioxide 32 (21-32) mmol/L POC Total CO2 28 (24-31) mmol/L Anion Gap 6 (3-11) POC Anion Gap 18.0 (16-25) mmol/L POC BUN 16 (7-18) mg/dl BUN 16 (6-23) mg/dl Creatinine 0.66 (0.6-1.4) mg/dl POC Creatinine 0.7 (0.6-1.3) mg/dl Est Cr Clr Drug Dosing Not Reportable Est GFR ( Amer) 101.5 ml/min Est GFR (Non-Af Amer) 87.5 ml/min BUN/Creatinine Ratio 24.2 H (10-20) Glucose 148 H (70-99(Fasting)) mg/dl POC Glucose (70-99) mg/dl POC Glucose (other) 150 H (70-99) mg/dl Calcium 8.8 (8.6-10.3) mg/dl POC Ioniz Calcium Bia 1.18 (1.12-1.32) mmol/l Magnesium 1.1 L (1.7-2.4) mg/dl Total Bilirubin 0.4 (0.2-1.0) mg/dl AST 23 (13-39) U/L ALT 27 (7-52) U/L Alkaline Phosphatase 37 (34-104) U/L Troponin I High Sens 6.0 (0-20) pg/ml Total Protein 6.9 (6.0-8.3) gm/dl Albumin 4.0 (3.4-5.0) gm/dl Globulin 2.9 (2.5-4.0) gm/dl Albumin/Globulin Ratio 1.4 (0.9-2) SARS-CoV-2, RNA, NAAT NEGATIVE (NEGATIVE) Administered Medications Acetaminophen (Acetaminophen 325 Mg Tab) 650 mg PO Q4H PRN PRN Reason: Pain or Fever Stop: 03/06/23 18:29 Last Admin: 02/05/23 12:18 Dose: 650 mg Documented By: Admin: 02/05/23 04:52 Dose: 650 mg Documented By: Admin: 02/04/23 20:14 Dose: 650 mg Documented By: Clopidogrel Bisulfate (Clopidogrel Bisulfate 75 Mg Tab) 75 mg PO [facility] Stop: 03/07/23 08:59 Last Admin: 02/05/23 08:55 Dose: 75 mg Documented By: MIRIAM Cyanocobalamin (Cyanocobalamin (B-12) 500 Mcg Tablet) 1,000 mcg PO QAM [facility] Stop: 03/07/23 08:59 Last Admin: 02/05/23 08:54 Dose: 1,000 mcg Documented By: MIRIAM Fluticasone Furoate (Fluticasone Furoate 100mcg 14 Puffs/Inhaler) 1 puffs INH DAILY [facility] Stop: 03/07/23 08:59 Last Admin: 02/05/23 08:56 Dose: 1 puffs Documented By: MIRIAM Insulin Aspart (Insulin Aspart Per Unit Charge) 0 units SC ACHS [facility] Stop: 03/06/23 20:59 Last Admin: 02/05/23 12:18 Dose: 5 units Documented By: MIRIAM Co-signed By: ARI Admin: 02/05/23 08:55 Dose: 7 units Documented By: MIRIAM Co-signed By: ASHLEY Admin: 02/04/23 20:18 Dose: Not Given Documented By: Co-signed By: LYN Levothyroxine Sodium (Levothyroxine Sodium 25 Mcg Tablet) 25 mcg PO DAILYBB [facility] Stop: 03/07/23 06:29 Last Admin: 02/05/23 04:49 Dose: 25 mcg Documented By: Magnesium Oxide (Magnesium Oxide 400 Mg Tab) 400 mg PO BID [facility] Stop: 03/07/23 10:29 Last Admin: 02/05/23 11:24 Dose: 400 mg Documented By: MIRIAM Pantoprazole Sodium (Pantoprazole 40 Mg Tab) 40 mg PO QAM [facility] Stop: 03/07/23 08:59 Last Admin: 02/05/23 08:54 Dose: 40 mg Documented By: MIRIAM Potassium Chloride (Potassium Chloride 10 Meq Tabcr) 10 meq PO QAM [facility] Stop: 03/07/23 08:59 Last Admin: 02/05/23 08:55 Dose: 10 meq Documented By: MIRIAM Pregabalin (Pregabalin 75 Mg Cap) 75 mg PO BID [facility] Stop: 03/06/23 20:59 Last Admin: 02/05/23 08:54 Dose: 75 mg Documented By: Admin: 02/04/23 20:16 Dose: 75 mg Documented By: Rosuvastatin Calcium (Rosuvastatin Calcium 20 Mg Tab) 40 mg PO QPM [facility] Stop: 03/06/23 20:59 Last Admin: 02/04/23 20:14 Dose: 40 mg Documented By: MG Senna/Docusate Sodium (Docusate Sodium/Senna 50/8.6mg Tab) 2 tab PO HS [facility] Stop: 03/06/23 20:59 Last Admin: 02/04/23 20:14 Dose: 2 tab Documented By: MG Torsemide (Torsemide 20 Mg Tab) 20 mg PO QAM [facility] Stop: 03/07/23 08:59 Last Admin: 02/05/23 08:55 Dose: 20 mg Documented By: MIRIAM Umeclidinium/Vilanterol (Umeclidinium/Vilanterol 62.5/25mcg 7 Puffs/Inhaler) 1 puffs INH DAILY [facility] Stop: 03/07/23 08:59 Last Admin: 02/05/23 08:55 Dose: 1 puffs Documented By: MIRIAM Discontinued Medications Acetaminophen (Acetaminophen 325 Mg Tab) 650 mg PO NOW STA Stop: 02/04/23 16:28 Last Admin: 02/04/23 16:31 Dose: 650 mg Documented By: DAVID Clopidogrel Bisulfate (Clopidogrel Bisulfate 75 Mg Tab) 75 mg PO NOW ONE Stop: 02/04/23 13:34 Last Admin: 02/04/23 15:34 Dose: 75 mg Documented By: DAVID Gadobutrol (Gadobutrol 65ml Vial) 8.8 ml IV ONCE ONE Stop: 02/04/23 17:54 Last Admin: 02/04/23 17:53 Dose: 8.8 ml Documented By: LIGIA Magnesium Sulfate/Dextrose (Magnesium Sulfate / D5w) 1 gm in 100 mls @ 100 mls/hr IV Q1H [facility] Stop: 02/04/23 13:19 Last Infusion: 02/04/23 14:13 Dose: 0 mls/hr Documented By: Admin: 02/04/23 13:00 Dose: 100 mls/hr Documented By: Infusion: 02/04/23 13:00 Dose: 100 mls/hr Documented By: Admin: 02/04/23 12:02 Dose: 100 mls/hr Documented By: QGV Ioversol (Optiray 320 125ml) 120 ml IV ONCE ONE Stop: 02/04/23 10:41 Last Admin: 02/04/23 10:31 Dose: 120 ml Documented By: BRNori Imaging Data Radiologist's Impression: Chest X-Ray 02/04/23 10:22 SINGLE VIEW CHEST CLINICAL HISTORY: Neurological deficit. Stroke like symptoms. FINDINGS: An AP, portable, upright chest radiograph is compared to study dated 12/29/2022. The examination is degraded by portable technique, apical lordotic positioning, and patient rotation. The patient is status post midline sternotomy and cardiac valve surgery. The heart is enlarged noting atherosclerotic calcification of the thoracic area. The pulmonary vasculature is noncongested. Chronic interstitial thickening is similar to previous. There is bibasilar scarring/atelectasis. The lungs and pleural spaces are otherwise clear. No pneumothorax is seen. The skeletal structures are osteopenic. The bony thorax is grossly intact. Cholecystectomy changes noted in the right upper quadrant. IMPRESSION: Cardiomegaly with no active disease in the chest. ACT 112: Negative or not required by law. Electronically signed by: Cornell Baum M.D. 02/04/2023 11:[address] 02/04/23 10:[address] OF THE BRAIN; CT ANGIOGRAM OF THE BRAIN; CT ANGIOGRAM OF THE NECK CLINICAL HISTORY: Neurologic deficit. Stroke like symptoms. Left-sided weakness. COMPARISON STUDY: CT of the brain dated 01/04/2023. CT angiogram of the head and neck dated 12/29/2022. TECHNIQUE: Unenhanced axial CT scan of the brain is performed. Subsequently, following the IV administration of 120 of Optiray 320, CT angiogram of the head and neck was performed from the aortic arch to the vertex. Images are reviewed in the axial, sagittal, and coronal planes. 3-D MIPS images are created and assessed. IV contrast was administered without complication. All measurements were calculated based on NASCET criteria. A dose lowering technique was utilized adhering to the principles of ALARA. 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 There is an evolving left cerebellar infarct at the site of prior hemorrhage. No residual blood products are clearly seen. Additional chronic infarcts are seen in the right cerebellar hemisphere comment the right frontal lobe, and the right parieto-occipital region. There is a chronic lacunar infarct in the right caudate head. There is no acute hemorrhage, mass effect, or evidence of acute territorial ischemia by CT criteria. There is no evidence of enhancing mass lesion on the angiogram phase images. The ventricles, sulci, and cisterns are prominent secondary to involutional change. Griffin-white matter differentiation is preserved. No extra-axial fluid collection is seen. Thoracic aorta: There is atherosclerotic calcification of the thoracic aorta. Vi sualized portions of the thoracic aorta are normal in caliber. The aortic arch demonstrates bovine variant anatomy. Right carotid arterial system: The right common carotid artery is widely patent. There is advanced atherosclerotic plaque within the carotid bulb. This causes approximately 75% focal stenosis at the origin of the right internal carotid artery seen on image #161. The mid to distal internal carotid artery are widely patent. 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 The remainder of the vessel is patent. Left carotid arterial system: The left common carotid artery is widely patent. There is advanced atherosclerotic plaque within the left carotid bulb. This causes less than 50% stenosis of the proximal internal carotid artery. The mid to distal internal carotid artery are widely patent, as is the external carotid artery. Vertebral arteries: There is moderate focal stenosis at the origin of both vertebral arteries. The vertebral arteries are otherwise patent bilaterally noting mild left-sided dominance.. Subclavian arteries: The subclavian arteries are widely patent bilaterally. Intracranial vasculature: There is atherosclerotic calcification of the cavernous carotid and vertebral arteries. The internal carotid arteries are patent at the skull base, as are the anterior and middle cerebral arteries bilaterally. The left A1 segment is diminutive. The vertebrobasilar system and posterior cerebral arteries are widely patent. The left vertebral artery is dominant. There are large bilateral posterior communicating arteries. There is no aneurysm, high-grade stenosis, or focal vessel cut off seen throughout the intracranial circulation. Jugular veins: Patent bilaterally. Dural sinuses: Patent. Lung apices: Partially visualized upper lobe lung parenchyma appears clear. Soft tissues: The visualized pharyngeal soft tissues are normal in appearance noting angiographic phase technique. The oropharyngeal airway appears widely patent. The salivary and thyroid glands are normal in appearance. No cervical lymphadenopathy is seen. Skeletal structures: The skeletal structures are osteopenic. The calvarium appears intact. The cervical spine is maintained noting multilevel spondylosis. The patient is status post midline sternotomy. Orbits: The bony orbits are intact. Orbital contents are normal as visualized noting bilateral ocular lens implants. Sinuses and mastoids: The paranasal sinuses are clear. There is trace left mastoid effusion. The right mastoid air cells are well pneumatized. IMPRESSION: 1. There is no acute hemorrhage, mass effect, or evidence of acute territorial ischemia by CT criteria. 2. 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 3. Unremarkable CT angiogram of the brain. 4. 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 5. There is less than 50% focal stenosis of the proximal left internal carotid artery. 6. There is moderate focal stenosis at the origin of both vertebral arteries. 7. 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 The remainder of the vessel is patent. ACT 112: Negative or not required by law. Electronically signed by: Cornell Baum M.D. 02/04/2023 11:07 AM Head CTA 02/04/23 10:[address] OF THE BRAIN; CT ANGIOGRAM OF THE BRAIN; CT ANGIOGRAM OF THE NECK CLINICAL HISTORY: Neurologic deficit. Stroke like symptoms. Left-sided weakness. COMPARISON STUDY: CT of the brain dated 01/04/2023. CT angiogram of the head and neck dated 12/29/2022. TECHNIQUE: Unenhanced axial CT scan of the brain is performed. Subsequently, following the IV administration of 120 of Optiray 320, CT angiogram of the head and neck was performed from the aortic arch to the vertex. Images are reviewed in the axial, sagittal, and coronal planes. 3-D MIPS images are created and assessed. IV contrast was administered without complication. All measurements were calculated based on NASCET criteria. A dose lowering technique was utilized adhering to the principles of ALARA. 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 There is an evolving left cerebellar infarct at the site of prior hemorrhage. No residual blood products are clearly seen. Additional chronic infarcts are seen in the right cerebellar hemisphere comment the right frontal lobe, and the right parieto-occipital region. There is a chronic lacunar infarct in the right caudate head. There is no acute hemorrhage, mass effect, or evidence of acute territorial ischemia by CT criteria. There is no evidence of enhancing mass lesion on the angiogram phase images. The ventricles, sulci, and cisterns are prominent secondary to involutional change. Griffin-white matter differentiation is preserved. No extra-axial fluid collection is seen. Thoracic aorta: There is atherosclerotic calcification of the thoracic aorta. Visualized portions of the thoracic aorta are normal in caliber. The aortic arch demonstrates bovine variant anatomy. Right carotid arterial system: The right common carotid artery is widely patent. There is advanced atherosclerotic plaque within the carotid bulb. This causes approximately 75% focal stenosis at the origin of the right internal carotid artery seen on image #161. The mid to distal internal carotid artery are widely patent. 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 The remainder of the vessel is patent. Left carotid arterial system: The left common carotid artery is widely patent. There is advanced atherosclerotic plaque within the left carotid bulb. This causes less than 50% stenosis of the proximal internal carotid artery. The mid to distal internal carotid artery are widely patent, as is the external carotid artery. Vertebral arteries: There is moderate focal stenosis at the origin of both vertebral arteries. The vertebral arteries are otherwise patent bilaterally noting mild left-sided dominance.. Subclavian arteries: The subclavian arteries are widely patent bilaterally. Intracranial vasculature: There is atherosclerotic calcification of the cavernous carotid and vertebral arteries. The internal carotid arteries are patent at the skull base, as are the anterior and middle cerebral arteries bilaterally. The left A1 segment is diminutive. The vertebrobasilar system and posterior cerebral arteries are widely patent. The left vertebral artery is dominant. There are large bilateral posterior communicating arteries. There is no aneurysm, high-grade stenosis, or focal vessel cut off seen throughout the intracranial circulation. Jugular veins: Patent bilaterally. Dural sinuses: Patent. Lung apices: Partially visualized upper lobe lung parenchyma appears clear. Soft tissues: The visualized pharyngeal soft tissues are normal in appearance noting angiographic phase technique. The oropharyngeal airway appears widely patent. The salivary and thyroid glands are normal in appearance. No cervical lymphadenopathy is seen. Skeletal structures: The skeletal structures are osteopenic. The calvarium appears intact. The cervical spine is maintained noting multilevel spondylosis. The patient is status post midline sternotomy. Orbits: The bony orbits are intact. Orbital contents are normal as visualized noting bilateral ocular lens implants. Sinuses and mastoids: The paranasal sinuses are clear. There is trace left mastoid effusion. The right mastoid air cells are well pneumatized. IMPRESSION: 1. There is no acute hemorrhage, mass effect, or evidence of acute territorial ischemia by CT criteria. 2. 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 3. Unremarkable CT angiogram of the brain. 4. 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 5. There is less than 50% focal stenosis of the proximal left internal carotid artery. 6. There is moderate focal stenosis at the origin of both vertebral arteries. 7. 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 The remainder of the vessel is patent. ACT 112: Negative or not required by law. Electronically signed by: Cornell Baum M.D. 02/04/2023 11:07 AM Neck CTA 02/04/23 10:[address] OF THE BRAIN; CT ANGIOGRAM OF THE BRAIN; CT ANGIOGRAM OF THE NECK CLINICAL HISTORY: Neurologic deficit. Stroke like symptoms. Left-sided weakness. COMPARISON STUDY: CT of the brain dated 01/04/2023. CT angiogram of the head and neck dated 12/29/2022. TECHNIQUE: Unenhanced axial CT scan of the brain is performed. Subsequently, following the IV administration of 120 of Optiray 320, CT angiogram of the head and neck was performed from the aortic arch to the vertex. Images are reviewed in the axial, sagittal, and coronal planes. 3-D MIPS images are created and assessed. IV contrast was administered without complication. All measurements were calculated based on NASCET criteria. A dose lowering technique was utilized adhering to the principles of ALARA. 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 There is an evolving left cerebellar infarct at the site of prior hemorrhage. No residual blood products are clearly seen. Additional chronic infarcts are seen in the right cerebellar hemisphere comment the right frontal lobe, and the right parieto-occipital region. There is a chronic lacunar infarct in the right caudate head. There is no acute hemorrhage, mass effect, or evidence of acute territorial ischemia by CT criteria. There is no evidence of enhancing mass lesion on the angiogram phase images. The ventricles, sulci, and cisterns are prominent secondary to involutional change. Griffin-white matter differentiation is preserved. No extra-axial fluid collection is seen. Thoracic aorta: There is atherosclerotic calcification of the thoracic aorta. Visualized portions of the thoracic aorta are normal in caliber. The aortic arch demonstrates bovine variant anatomy. Right carotid arterial system: The right common carotid artery is widely patent. There is advanced atherosclerotic plaque within the carotid bulb. This causes approximately 75% focal stenosis at the origin of the right internal carotid artery seen on image #161. The mid to distal internal carotid artery are widely patent. 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 The remainder of the vessel is patent. Left carotid arterial system: The left common carotid artery is widely patent. There is advanced atherosclerotic plaque within the left carotid bulb. This caus es less than 50% stenosis of the proximal internal carotid artery. The mid to distal internal carotid artery are widely patent, as is the external carotid artery. Vertebral arteries: There is moderate focal stenosis at the origin of both vertebral arteries. The vertebral arteries are otherwise patent bilaterally noting mild left-sided dominance.. Subclavian arteries: The subclavian arteries are widely patent bilaterally. Intracranial vasculature: There is atherosclerotic calcification of the cavernous carotid and vertebral arteries. The internal carotid arteries are patent at the skull base, as are the anterior and middle cerebral arteries bilaterally. The left A1 segment is diminutive. The vertebrobasilar system and posterior cerebral arteries are widely patent. The left vertebral artery is dominant. There are large bilateral posterior communicating arteries. There is no aneurysm, high-grade stenosis, or focal vessel cut off seen throughout the intracranial circulation. Jugular veins: Patent bilaterally. Dural sinuses: Patent. Lung apices: Partially visualized upper lobe lung parenchyma appears clear. Soft tissues: The visualized pharyngeal soft tissues are normal in appearance noting angiographic phase technique. The oropharyngeal airway appears widely patent. The salivary and thyroid glands are normal in appearance. No cervical lymphadenopathy is seen. Skeletal structures: The skeletal structures are osteopenic. The calvarium appears intact. The cervical spine is maintained noting multilevel spondylosis. The patient is status post midline sternotomy. Orbits: The bony orbits are intact. Orbital contents are normal as visualized noting bilateral ocular lens implants. Sinuses and mastoids: The paranasal sinuses are clear. There is trace left mastoid effusion. The right mastoid air cells are well pneumatized. IMPRESSION: 1. There is no acute hemorrhage, mass effect, or evidence of acute territorial ischemia by CT criteria. 2. 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 3. Unremarkable CT angiogram of the brain. 4. 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 5. There is less than 50% focal stenosis of the proximal left internal carotid artery. 6. There is moderate focal stenosis at the origin of both vertebral arteries. 7. 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 The remainder of the vessel is patent. ACT 112: Negative or not required by law. Electronically signed by: Cornell Baum M.D. 02/04/2023 11:07 AM Discharge Plan Visit Data Chief Complaint: Stroke/CVA Symptoms Stated Complaint: STROKE SX ED Provider: Jolanta Zuniga Discharge Problem: Left arm weakness, Dysarthria, Cerebellar stroke, Hypomagnesemia Patient Disposition: Admitted As Inpatient Discharge Instructions Interventions: ED Discharge Assessment Last Done: 02/04/23 17:13
[2023-02-04 11:07] LABS: Alanine Aminotransferase 27 U/L (7-52); Albumin Globulin Ratio 1.4 (0.9-2); Alkaline Phosphatase 37 U/L (34-104); Anion Gap 6 (3-11); Aspartate Aminotransferase 23 U/L (13-39); BUN Creatinine Ratio 24.2 (10-20); Bilirubin,Total 0.4 mg/dl (0.2-1.0); Blood Urea Nitrogen 16 mg/dl (6-23); Calcium 8.8 mg/dl (8.6-10.3); Carbon Dioxide 32 mmol/L (21-32); Chloride 105 mmol/L (98-107); Est GFR (African American) 101.5 ml/min; Est GFR (Non-African American) 87.5 ml/min; Globulin 2.9 gm/dl (2.5-4.0); Glucose 148 mg/dl (70-99(Fasting)); Magnesium 1.1 mg/dl (1.7-2.4); Potassium 4.2 mmol/L (3.5-5.1); Sodium 143 mmol/L (136-145); Total Protein 6.9 gm/dl (6.0-8.3)
--- NOTE | 2023-02-04 11:09 | CT Scan Report ---
UNENHANCED CT OF THE BRAIN; CT ANGIOGRAM OF THE BRAIN; CT ANGIOGRAM OF THE NECK CLINICAL HISTORY: Neurologic deficit. Stroke like symptoms. Left-sided weakness. COMPARISON STUDY: CT of the brain dated 01/04/2023. CT angiogram of the head and neck dated 12/29/2022. TECHNIQUE: Unenhanced axial CT scan of the brain is performed. Subsequently, following the IV adminis tration of 120 of Optiray 320, CT angiogram of the head and neck was performed from the aortic arch t o the vertex. Images are reviewed in the axial, sagittal, and coronal planes. 3-D MIPS images are cre ated and assessed. IV contrast was administered without complication. All measurements were calculate d based on NASCET criteria. A dose lowering technique was utilized adhering to the principles of ALA RA. 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 There is an evolving left cerebellar infarct at the site of prior hemorrhage. No residual blood products are clearly seen. Additional chronic infarcts are seen in the right cerebellar hemisphere comment the right frontal lobe, and the right parieto-occipital re gion. There is a chronic lacunar infarct in the right caudate head. There is no acute hemorrhage, mas s effect, or evidence of acute territorial ischemia by CT criteria. There is no evidence of enhancing mass lesion on the angiogram phase images. The ventricles, sulci, and cisterns are prominent seconda ry to involutional change. Griffin-white matter differentiation is preserved. No extra-axial fluid colle ction is seen. Thoracic aorta: There is atherosclerotic calcification of the thoracic aorta. Visualized portions of the thoracic aorta are normal in caliber. The aortic arch demonstrates bovine variant anatomy. Right carotid arterial system: The right common carotid artery is widely patent. There is advanced at herosclerotic plaque within the carotid bulb. This causes approximately 75% focal stenosis at the [place] gin of the right internal carotid artery seen on image #161. The mid to distal internal carotid arter y are widely patent. There is near complete thrombosis of the origin of the right external carotid ar [place]. The remainder of the vessel is patent. Left carotid arterial system: The left common carotid artery is widely patent. There is advanced athe rosclerotic plaque within the left carotid bulb. This causes less than 50% stenosis of the proximal i nternal carotid artery. The mid to distal internal carotid artery are widely patent, as is the office administrative assistant al carotid artery. Vertebral arteries: There is moderate focal stenosis at the origin of both vertebral arteries. The ve rtebral arteries are otherwise patent bilaterally noting mild left-sided dominance.. Subclavian arteries: The subclavian arteries are widely patent bilaterally. Intracranial vasculature: There is atherosclerotic calcification of the cavernous carotid and vertebr al arteries. The internal carotid arteries are patent at the skull base, as are the anterior and midd le cerebral arteries bilaterally. The left A1 segment is diminutive. The vertebrobasilar system and p osterior cerebral arteries are widely patent. The left vertebral artery is dominant. There are large bilateral posterior communicating arteries. There is no aneurysm, high-grade stenosis, or focal vesse l cut off seen throughout the intracranial circulation. Jugular veins: Patent bilaterally. Dural sinuses: Patent. Lung apices: Partially visualized upper lobe lung parenchyma appears clear. Soft tissues: The visualized pharyngeal soft tissues are normal in appearance noting angiographic pha se technique. The oropharyngeal airway appears widely patent. The salivary and thyroid glands are nor mal in appearance. No cervical lymphadenopathy is seen. Skeletal structures: The skeletal structures are osteopenic. The calvarium appears intact. The cervic al spine is maintained noting multilevel spondylosis. The patient is status post midline sternotomy. Orbits: The bony orbits are intact. Orbital contents are normal as visualized noting bilateral ocular lens implants. Sinuses and mastoids: The paranasal sinuses are clear. There is trace left mastoid effusion. The righ t mastoid air cells are well pneumatized. IMPRESSION: 1. There is no acute hemorrhage, mass effect, or evidence of acute territorial ischemia by CT criteri a. 2. 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 3. Unremarkable CT angiogram of the brain. 4. 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 5. There is less than 50% focal stenosis of the proximal left internal carotid artery. 6. There is moderate focal stenosis at the origin of both vertebral arteries. 7. 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 The remainder of the vessel is patent. ACT 112: Negative or not required by law. Electronically signed by: Cornell Baum M.D. 02/04/2023 11:07 AM
[2023-02-04 11:13] LABS: INR 0.9 (0.9-1.1); Partial Thromboplastin Ratio 0.9; Partial Thromboplastin Time 26.5 Seconds (21.0-31.0); Prothrombin Time 10.4 Seconds (9.0-12.0)
--- NOTE | 2023-02-04 11:13 | XRay Report ---
SINGLE VIEW CHEST CLINICAL HISTORY: Neurological deficit. Stroke like symptoms. FINDINGS: An AP, portable, upright chest radiograph is compared to study dated 12/29/2022. The examina tion is degraded by portable technique, apical lordotic positioning, and patient rotation. The patie nt is status post midline sternotomy and cardiac valve surgery. The heart is enlarged noting atherosc lerotic calcification of the thoracic area. The pulmonary vasculature is noncongested. Chronic inters titial thickening is similar to previous. There is bibasilar scarring/atelectasis. The lungs and pleu ral spaces are otherwise clear. No pneumothorax is seen. The skeletal structures are osteopenic. The bony thorax is grossly intact. Cholecystectomy changes noted in the right upper quadrant. IMPRESSION: Cardiomegaly with no active disease in the chest. ACT 112: Negative or not required by law. Electronically signed by: Cornell Baum M.D. 02/04/2023 11:12 AM
[2023-02-04] MEDS: MAGNESIUM SULFATE / D5W 1 GM/100 ML BAG IV SCH ×2 (12:02→13:00)
--- NOTE | 2023-02-04 12:51 | History & Physical Report ---
Date of Service February 04, 2023 Assessment & Plan (1) Cerebellar stroke: (2) Left arm weakness: Plan: Patient is 87-year-old male with PMH recent CVA 12/29/22 with hemorrhagic transformation presented to ER with c/o left arm weakness today, noted this morning upon awakening. Acute left cerebellar ischemic infarct on 12/29/2022 and was placed on aspirin and Plavix. On 01/03/2023 patient had hemorrhagic transformation of the stroke in the left cerebellar hemisphere with some mass effect. Patient did not want any neurosurgical intervention. Antiplatelets were held and patient was given IV Decadron. History Echo 12/30/2022: EF: 55-60%, s/p KARLOS, gradient normal for prosthetic aortic valve, moderate concentric LVH Today in ER vitals stable CT Head/ CTA Head/Neck: 1. There is no acute hemorrhage, mass effect, or evidence of acute territorial ischemia by CT criteria. 2. 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 3. Unremarkable CT angiogram of the brain. 4. 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 5. There is less than 50% focal stenosis of the proximal left internal carotid artery. 6. There is moderate focal stenosis at the origin of both vertebral arteries. 7. 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 The remainder of the vessel is patent. Tele to monitor for arrhythmias EKG in am MRI brain pending Aspiration precautions PT/OT consult Continue home rosuvastatin Allow permissive HTN Neurology consult, Dr Vivar suggests MRI brain and starting Plavix Discussed benefits and risks of starting Plavix including bleeding/hemorrhagic conversion with patient and family. Wants to proceed with starting Plavix Monitor closely for any signs of bleeding, changes in mental status, neuro checks Plan for CT head tomorrow, 24 hours after initial to further assess for bleeding (3) Hypomagnesemia: Plan: Magnesium: 1.1 In ER given 2 g magnesium sulfate IV Magnesium lab in a.m. (4) CAD (coronary artery disease): Plan: S/P CABG x 4 History Aortic stenosis s/p TAVR Denies chest pain, shortness of breath Aspirin has been on hold secondary to recent stroke hemorrhagic conversion Hold carvedilol Continue rosuvastatin (5) Peripheral artery disease: (6) S/P vascular surgery: Plan: S/P right common femoral endarterectomy, bilateral common iliac stents, carotid artery stenosis s/p thromboendarterectomy w/ patch CTA with noted significant right-sided stenosis Patient follows with Dr. Montana, will need outpatient follow-up Continue rosuvastatin (7) Diabetes mellitus, type II: Plan: A1c: 7.6 on 08/06/22 Hold home metformin NovoLog sliding scale per protocol (8) COPD (chronic obstructive pulmonary disease): Plan: Chronic hypoxic respiratory failure Uses 3 L oxygen during the day as needed No signs acute exacerbation Continue supplemental oxygen use as needed Continue home inhalers (9) HTN (hypertension): Plan: Allow permissive hypertension Hold home lisinopril, carvedilol for now (10) ERINN (obstructive sleep apnea): Plan: CPAP at bedtime with 3-3.5 L oxygen DVT Prophylaxis SCDs for now DNR/DNI as per discussion with pt Follows with Dr Anthony for routine care Pt was seen and care coordinated with Dr Pope. See addendum I spent a total of 79 minutes reviewing notes, outpatient records, labs, medication, coordinating, documenting and providing care for this patient excluding time spent in the performance of separately billed services. History of Present Illness Primary Care Provider: Jae Anthony MD Patient is 87-year-old male with PMH COPD, chronic hypoxic respiratory failure with hypoxia, ERINN on CPAP, HTN, DM III, chronic diastolic CHF, bicuspid aortic valve, history of TAVR, CAD s/p CABG x 4 with atherosclerosis of bypass vessels, peripheral vascular disease status post right common femoral endarterectomy, B/L common iliac stenting, carotid artery stenosis s/p thromboendarterectomy w/ patch, GERD, pneumoconiosis, BPH, chronic back pain, CVA 12/29/22 with hemorrhagic transformation presented to ER with c/o left arm weakness. History obtained from patient, family, and chart review. Patient with history of acute left cerebellar ischemic infarct on 12/29/2022 and was placed on aspirin and Plavix. Unfortunately on 01/03/2023 patient had hemorrhagic transformation of the stroke in the left cerebellar hemisphere with some mass effect. Patient and family did not wish for any neurosurgical intervention. Antiplatelets were held. Patient was given IV Decadron. On 01/06/2023 he was discharged to rehab facility. Neurology had recommended to hold on antiplatelet medication until blood has reabsorbed. Family reports patient has been home since rehab and has been doing well. He is ambulating with the use of a walker. He had been regaining strength in his left arm. He has been able to dress himself, feed and and bathe himself. Reports still with some intermittent slurred speech. Patient reports went to bed around 930 last night. Reports when woke up this morning attempted to put on watch and noticed was unable to lift left arm. Reports this was around 8 AM this morning. Patient reports had headache this morning that lasted approximately an hour and has since resolved. During ER course patient states is now starting to be able to slightly lift left arm. Denies falls or trauma. Denies fever/chills, diaphoresis, N/V/D/C, dizziness, syncope, vision changes, neck pain, CP, SOB, cough, rhinorrhea, abdominal pain, paresthesias, lower extremity weakness, extremity edema, rashes, urinary symptoms. Allergies Allergy/AdvReac Type Severity Reaction Status Date / Time codeine AdvReac Mild Anxiety Verified 05/26/22 10:56 symptoms hydrocodone AdvReac Mild Anxiety, Verified 05/26/22 10:56 insomnia Home Medications Medication Instructions Recorded Confirmed Type acetaminophen 500 mg tablet 1,000 mg PO Q8 PRN pain #60 tabs 01/06/23 02/04/23 Rx (Tylenol Extra Strength) carvedilol 12.5 mg tablet 12.5 mg PO BID #60 tabs 01/06/23 02/04/23 Rx cyanocobalamin (vitamin B-12) 1,000 mcg PO QAM #30 tabs 01/06/23 02/04/23 Rx 1,000 mcg tablet (Vitamin B-12) fluticasone fur. 100 mcg-umeclid 1 inh inhalation QAM #60 ea 01/06/23 02/04/23 Rx 62.5 mcg-vilant 25 mcg inhalat.powder (Trelegy Ellipta) levothyroxine 25 mcg tablet 25 mcg PO QAM #30 tabs 01/06/23 02/04/23 Rx losartan 25 mg tablet 50 mg PO DAILY #60 tabs 01/06/23 02/04/23 Rx multivitamin 1 tab PO QAM #30 tabs 01/06/23 02/04/23 Rx nitroglycerin 0.4 mg sublingual 0.4 mg sublingual UD #30 tabs 01/06/23 02/04/23 Rx tablet (Nitrostat) pantoprazole 40 mg tablet,delayed 40 mg PO QAM #30 tabs 01/06/23 02/04/23 Rx release potassium chloride 10 mEq 10 meq PO QAM #30 caps 01/06/23 02/04/23 Rx capsule,extended release pregabalin 75 mg capsule (Lyrica) 75 mg PO BID #60 caps 01/06/23 02/04/23 Rx rosuvastatin 20 mg tablet 40 mg PO QPM #30 tabs 01/06/23 02/04/23 Rx torsemide 20 mg tablet 20 mg PO QAM #30 tabs 01/06/23 02/04/23 Rx metformin 500 mg tablet 500 mg PO BID 02/04/23 02/04/23 History sennosides 8.6 mg-docusate sodium 2 tab-cap PO HS 02/04/23 02/04/23 History 50 mg tablet Past Med/Surg History Medical History Aortic stenosis s/p TAVR BPH (benign prostatic hyperplasia) CAD (coronary artery disease) CABG x 4 (2000) Stent x1 (2006) Cath (2011) - SVG to 1st diagonal 100% occluded, other grafts patent Carotid artery disease s/p Left CEA (2011), right (2012) Carotid artery stenosis Diabetes mellitus Dyslipidemia GERD (gastroesophageal reflux disease) HTN (hypertension) Hypothyroidism Obesity ERINN (obstructive sleep apnea) CPAP with O2 3.5L HS Rest pain of both lower extremities due to atherosclerosis Surgical History Amputated finger H/O repair of right rotator cuff H/O vascular surgery (05/26/22) Right Common Femoral Artery Endarterectomy,(Right) with bovine patch - Maurizio Montana MD sBilateral Iliac Stents(Bilateral) - Maurizio Montana MD History of anesthesia reaction Slow to wake History of cardiac cath Stent x1 (2006) History of CEA (carotid endarterectomy) Left - 2012 Right - 2013 History of cholecystectomy History of colonoscopy History of coronary artery bypass graft CABG x4 (2000) History of heart valve replacement AVR [facility] after 2006 Hx of cataract surgery S/P laminectomy with spinal fusion Back surgeries x2 S/P TURP Family History Brother Diabetes Coronary heart disease, Onset Age: 60 Brother Coronary heart disease, Onset Age: 50 Diabetes Mother Diabetes Social History Smoking Status: Former smoker packs per day: 4; Second Hand Exposure: No; Do You Dip or Chew Tobacco: No; Hx Alcohol Use: Yes Alcohol type: beer Hx Substance Use: No Preferred Language: Mongolian Communication Ability: Effective 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 Beliefs That Will Affect Care: None marital status: Current Living Situation: Spouse and Family current occupational status: retired Feels Safe at Home: Yes Assistive Devices: Bedside Commode, Cane and Walker Review of Systems Review of Systems: All systems reviewed & are unremarkable except as noted in HPI & below Physical Exam Physical Exam: General: no acute distress, overweight elderly male Head: normocephalic, atraumatic Eyes: conjunctiva non-injected, anicteric ENT: normal inspection external ears, nose, mucous membranes moist Neck: supple, trachea midline Lungs: clear, no respiratory distress, no wheezing/rhonchi/rales CV: RRR, no murmur, no pretibial edema Abd: normal BS, soft, non-tender Ext: no cyanosis, no calf tenderness Neuro: A&O x 3, normal affect, facial sensation is intact and symmetric, face is strong and symmetric, hard of hearing, +intermittent slurred/stuttered speech, tongue is midline, normal movement, no fasciculations, LUE +left arm weakness, barely able to lift left arm off bed, +decreased pelt grader strength left arm,+sensation intact. RUE: active ROM intact, good pelt grader strength, BLE: +pedal pushes and pulls intact, active straight leg raise to approx 30 degrees, sensation to light touch intact. Skin: warm, dry Results & Data Results & Data Vital Signs (Past 12 Hours) Vital Signs Temp Pulse Resp BP Pulse Ox O2 Del Method O2 Flow Rate 02/04/23 11:30 68 17 138/70 98 Room Air 02/04/23 11:30 98 Room Air 02/04/23 12:13 71 02/04/23 10:07 36.9 C 77 20 172/78 H 96 Nasal Cannula 2 Laboratory Results Short CBC 02/04/23 Range/Units 10:15 WBC 4.13 L (4.8-10.8) K/ul Hgb 11.9 L (14.0-18.0) g/dl Hct 35.7 L (42.0-52.0) % Plt Count 111 L (130-400) K/uL BMP 02/04/23 10:15 Sodium 143 Potassium 4.2 Chloride 105 Carbon Dioxide 32 BUN 16 Creatinine 0.66 Glucose 148 H Calcium 8.8 Liver Function 02/04/23 Range/Units 10:15 Total Bilirubin 0.4 (0.2-1.0) mg/dl AST 23 (13-39) U/L ALT 27 (7-52) U/L Alkaline Phosphatase 37 (34-104) U/L Albumin 4.0 (3.4-5.0) gm/dl Diagnostic Findings Chest X-Ray 02/04/23 10:22 SINGLE VIEW CHEST CLINICAL HISTORY: Neurological deficit. Stroke like symptoms. FINDINGS: An AP, portable, upright chest radiograph is compared to study dated 12/29/2022. The examination is degraded by portable technique, apical lordotic positioning, and patient rotation. The patient is status post midline sternotomy and cardiac valve surgery. The heart is enlarged noting atherosclerotic calcification of the thoracic area. The pulmonary vasculature is noncongested. Chronic interstitial thickening is similar to previous. There is bibasilar scarring/atelectasis. The lungs and pleural spaces are otherwise clear. No pneumothorax is seen. The skeletal structures are osteopenic. The bony thorax is grossly intact. Cholecystectomy changes noted in the right upper quadrant. IMPRESSION: Cardiomegaly with no active disease in the chest. ACT 112: Negative or not required by law. Electronically signed by: Cornell Baum M.D. 02/04/2023 11:[address] 02/04/23 10:[address] OF THE BRAIN; CT ANGIOGRAM OF THE BRAIN; CT ANGIOGRAM OF THE NECK CLINICAL HISTORY: Neurologic deficit. Stroke like symptoms. Left-sided weakness. COMPARISON STUDY: CT of the brain dated 01/04/2023. CT angiogram of the head and neck dated 12/29/2022. TECHNIQUE: Unenhanced axial CT scan of the brain is performed. Subsequently, following the IV administration of 120 of Optiray 320, CT angiogram of the head and neck was performed from the aortic arch to the vertex. Images are reviewed in the axial, sagittal, and coronal planes. 3-D MIPS images are created and assessed. IV contrast was administered without complication. All measurements were calculated based on NASCET criteria. A dose lowering technique was utilized adhering to the principles of ALARA. 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 There is an evolving left cerebellar infarct at the site of prior hemorrhage. No residual blood products are clearly seen. Additional chronic infarcts are seen in the right cerebellar hemisphere comment the right frontal lobe, and the right parieto-occipital region. There is a chronic lacunar infarct in the right caudate head. There is no acute hemorrhage, mass effect, or evidence of acute territorial ischemia by CT criteria. There is no evidence of enhancing mass lesion on the angiogram phase images. The ventricles, sulci, and cisterns are prominent secondary to involutional change. Griffin-white matter differentiation is preserved. No extra-axial fluid collection is seen. Thoracic aorta: There is atherosclerotic calcification of the thoracic aorta. Visualized portions of the thoracic aorta are normal in caliber. The aortic arch demonstrates bovine variant anatomy. Right carotid arterial system: The right common carotid artery is widely patent. There is advanced atherosclerotic plaque within the carotid bulb. This causes approximately 75% focal stenosis at the origin of the right internal carotid artery seen on image #161. The mid to distal internal carotid artery are widely patent. 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 The remainder of the vessel is patent. Left carotid arterial system: The left common carotid artery is widely patent. There is advanced atherosclerotic plaque within the left carotid bulb. This causes less than 50% stenosis of the proximal internal carotid artery. The mid to distal internal carotid artery are widely patent, as is the external carotid artery. Vertebral arteries: There is moderate focal stenosis at the origin of both vertebral arteries. The vertebral arteries are otherwise patent bilaterally noting mild left-sided dominance.. Subclavian arteries: The subclavian arteries are widely patent bilaterally. Intracranial vasculature: There is atherosclerotic calcification of the cavernous carotid and vertebral arteries. The internal carotid arteries are patent at the skull base, as are the anterior and middle cerebral arteries bilaterally. The left A1 segment is diminutive. The vertebrobasilar system and posterior cerebral arteries are widely patent. The left vertebral artery is dominant. There are large bilateral posterior communicating arteries. There is no aneurysm, high-grade stenosis, or focal vessel cut off seen throughout the intracranial circulation. Jugular veins: Patent bilaterally. Dural sinuses: Patent. Lung apices: Partially visualized upper lobe lung parenchyma appears clear. Soft tissues: The visualized pharyngeal soft tissues are normal in appearance noting angiographic phase technique. The oropharyngeal airway appears widely patent. The salivary and thyroid glands are normal in appearance. No cervical lymphadenopathy is seen. Skeletal structures: The skeletal structures are osteopenic. The calvarium appears intact. The cervical spine is maintained noting multilevel spondylosis. The patient is status post midline sternotomy. Orbits: The bony orbits are intact. Orbital contents are normal as visualized noting bilateral ocular lens implants. Sinuses and mastoids: The paranasal sinuses are clear. There is trace left mastoid effusion. The right mastoid air cells are well pneumatized. IMPRESSION: 1. There is no acute hemorrhage, mass effect, or evidence of acute territorial ischemia by CT criteria. 2. 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 3. Unremarkable CT angiogram of the brain. 4. 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 5. There is less than 50% focal stenosis of the proximal left internal carotid artery. 6. There is moderate focal stenosis at the origin of both vertebral arteries. 7. 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 The remainder of the vessel is patent. ACT 112: Negative or not required by law. Electronically signed by: Cornell Baum M.D. 02/04/2023 11:07 AM Head CTA 02/04/23 10:[address] OF THE BRAIN; CT ANGIOGRAM OF THE BRAIN; CT ANGIOGRAM OF THE NECK CLINICAL HISTORY: Neurologic deficit. Stroke like symptoms. Left-sided weakness. COMPARISON STUDY: CT of the brain dated 01/04/2023. CT angiogram of the head and neck dated 12/29/2022. TECHNIQUE: Unenhanced axial CT scan of the brain is performed. Subsequently, following the IV administration of 120 of Optiray 320, CT angiogram of the head and neck was performed from the aortic arch to the vertex. Images are reviewed in the axial, sagittal, and coronal planes. 3-D MIPS images are created and assessed. IV contrast was administered without complication. All measurements were calculated based on NASCET criteria. A dose lowering technique was utilized adhering to the principles of ALARA. 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 There is an evolving left cerebellar infarct at the site of prior hemorrhage. No residual blood products are clearly seen. Additional chronic infarcts are seen in the right cerebellar hemisphere comment the right frontal lobe, and the right parieto-occipital region. There is a chronic lacunar infarct in the right caudate head. There is no acute hemorrhage, mass effect, or evidence of acute territorial ischemia by CT criteria. There is no evidence of enhancing mass lesion on the angiogram phase images. The ventricles, sulci, and cisterns are p rominent secondary to involutional change. Griffin-white matter differentiation is preserved. No extra-axial fluid collection is seen. Thoracic aorta: There is atherosclerotic calcification of the thoracic aorta. Visualized portions of the thoracic aorta are normal in caliber. The aortic arch demonstrates bovine variant anatomy. Right carotid arterial system: The right common carotid artery is widely patent. There is advanced atherosclerotic plaque within the carotid bulb. This causes approximately 75% focal stenosis at the origin of the right internal carotid artery seen on image #161. The mid to distal internal carotid artery are widely patent. 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 The remainder of the vessel is patent. Left carotid arterial system: The left common carotid artery is widely patent. There is advanced atherosclerotic plaque within the left carotid bulb. This causes less than 50% stenosis of the proximal internal carotid artery. The mid to distal internal carotid artery are widely patent, as is the external carotid artery. Vertebral arteries: There is moderate focal stenosis at the origin of both vertebral arteries. The vertebral arteries are otherwise patent bilaterally noting mild left-sided dominance.. Subclavian arteries: The subclavian arteries are widely patent bilaterally. Intracranial vasculature: There is atherosclerotic calcification of the cavernous carotid and vertebral arteries. The internal carotid arteries are patent at the skull base, as are the anterior and middle cerebral arteries bila terally. The left A1 segment is diminutive. The vertebrobasilar system and posterior cerebral arteries are widely patent. The left vertebral artery is dominant. There are large bilateral posterior communicating arteries. There is no aneurysm, high-grade stenosis, or focal vessel cut off seen throughout the intracranial circulation. Jugular veins: Patent bilaterally. Dural sinuses: Patent. Lung apices: Partially visualized upper lobe lung parenchyma appears clear. Soft tissues: The visualized pharyngeal soft tissues are normal in appearance noting angiographic phase technique. The oropharyngeal airway appears widely patent. The salivary and thyroid glands are normal in appearance. No cervical lymphadenopathy is seen. Skeletal structures: The skeletal structures are osteopenic. The calvarium appears intact. The cervical spine is maintained noting multilevel spondylosis. The patient is status post midline sternotomy. Orbits: The bony orbits are intact. Orbital contents are normal as visualized noting bilateral ocular lens implants. Sinuses and mastoids: The paranasal sinuses are clear. There is trace left mastoid effusion. The right mastoid air cells are well pneumatized. IMPRESSION: 1. There is no acute hemorrhage, mass effect, or evidence of acute territorial ischemia by CT criteria. 2. 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 3. Unremarkable CT angiogram of the brain. 4. 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 5. There is less than 50% focal stenosis of the proximal left internal carotid artery. 6. There is moderate focal stenosis at the origin of both vertebral arteries. 7. 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 The remainder of the vessel is patent. ACT 112: Negative or not required by law. Electronically signed by: Cornell Baum M.D. 02/04/2023 11:07 AM Neck CTA 02/04/23 10:[address] OF THE BRAIN; CT ANGIOGRAM OF THE BRAIN; CT ANGIOGRAM OF THE NECK CLINICAL HISTORY: Neurologic deficit. Stroke like symptoms. Left-sided weakness. COMPARISON STUDY: CT of the brain dated 01/04/2023. CT angiogram of the head and neck dated 12/29/2022. TECHNIQUE: Unenhanced axial CT scan of the brain is performed. Subsequently, following the IV administration of 120 of Optiray 320, CT angiogram of the head and neck was performed from the aortic arch to the vertex. Images are reviewed in the axial, sagittal, and coronal planes. 3-D MIPS images are created and assessed. IV contrast was administered without complication. All measurements were calculated based on NASCET criteria. A dose lowering technique was utilized adhering to the principles of ALARA. 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 There is an evolving left cerebellar infarct at the site of prior hemorrhage. No residual blood products are clearly seen. Additional chronic infarcts are seen in the right cerebellar hemisphere comment the right frontal lobe, and the right parieto-occipital region. There is a chronic lacunar infarct in the right caudate head. There is no acute hemorrhage, mass effect, or evidence of acute territorial ischemia by CT criteria. There is no evidence of enhancing mass lesion on the angiogram phase images. The ventricles, sulci, and cisterns are prominent secondary to involutional change. Griffin-white matter differentiation is preserved. No extra-axial fluid collection is seen. Thoracic aorta: There is atherosclerotic calcification of the thoracic aorta. Visualized portions of the thoracic aorta are normal in caliber. The aortic arch demonstrates bovine variant anatomy. Right carotid arterial system: The right common carotid artery is widely patent. There is advanced atherosclerotic plaque within the carotid bulb. This causes approximately 75% focal stenosis at the origin of the right internal carotid artery seen on image #161. The mid to distal internal carotid artery are widely patent. 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 The remainder of the vessel is patent. Left carotid arterial system: The left common carotid artery is widely patent. There is advanced atherosclerotic plaque within the left carotid bulb. This causes less than 50% stenosis of the proximal internal carotid artery. The mid to distal internal carotid artery are widely patent, as is the external carotid artery. Vertebral arteries: There is moderate focal stenosis at the origin of both vertebral arteries. The vertebral arteries are otherwise patent bilaterally noting mild left-sided dominance.. Subclavian arteries: The subclavian arteries are widely patent bilaterally. Intracranial vasculature: There is atherosclerotic calcification of the cavernous carotid and vertebral arteries. The internal carotid arteries are patent at the skull base, as are the anterior and middle cerebral arteries bilaterally. The left A1 segment is diminutive. The vertebrobasilar system and posterior cerebral arteries are widely patent. The left vertebral artery is dominant. There are large bilateral posterior communicating arteries. There is no aneurysm, high-grade stenosis, or focal vessel cut off seen throughout the intracranial circulation. Jugular veins: Patent bilaterally. Dural sinuses: Patent. Lung apices: Partially visualized upper lobe lung parenchyma appears clear. Soft tissues: The visualized pharyngeal soft tissues are normal in appearance noting angiographic phase technique. The oropharyngeal airway appears widely patent. The salivary and thyroid glands are normal in appearance. No cervical lymphadenopathy is seen. Skeletal structures: The skeletal structures are osteopenic. The calvarium appears intact. The cervical spine is maintained noting multilevel spondylosis. The patient is status post midline sternotomy. Orbits: The bony orbits are intact. Orbital contents are normal as visualized noting bilateral ocular lens implants. Sinuses and mastoids: The paranasal sinuses are clear. There is trace left mastoid effusion. The right mastoid air cells are well pneumatized. IMPRESSION: 1. There is no acute hemorrhage, mass effect, or evidence of acute territorial ischemia by CT criteria. 2. 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 3. Unremarkable CT angiogram of the brain. 4. 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 5. There is less than 50% focal stenosis of the proximal left internal carotid artery. 6. There is moderate focal stenosis at the origin of both vertebral arteries. 7. 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 The remainder of the vessel is patent. ACT 112: Negative or not required by law. Electronically signed by: Cornell Baum M.D. 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 He admits to have headache which later resolved. Denies any chest pain, dyspnea, dizziness, nausea, vomiting, abdominal pain, numbness, tingling, change in vision. Intermittently had slurred speech from prior CVA which is unchanged. Patient's history is also obtained from family at bedside given hearing impairment. Patient currently not on antiplatelets given hemorrhagic conversion. Please review HPI for complete details of presentation. I personally reviewed imaging studies and blood work, EKG. Discussed with ER physician and neurologist on-call. Physical Exam: Vitals signs as noted above General Appearance:Obese, no apparent distress Head: normocephalic, Atraumatic Eyes: normal inspection, EOMI Neck: supple, Trachea midline Respiratory/Chest: Normal breath sounds, CTA, No accessory muscle use Cardiovascular: S1, S2, No murmur Abdomen/GI:Soft, Non tender, Bowel sounds present Extremities/Musculoskeletal:normal inspection, Trace edema Neurologic/Psych:AAOX3, LUE 2/5 otherwise grossly no focal deficits, + hearing impaired, + hearing aid Skin: normal color, warm Evolving CVA Hypomagnesemia Thrombocytopenia Chronic anemia Peripheral vascular disease Hypertension Will obtain MRI. Discussed with neurologist on-call. Start on Plavix 75 mg daily as recommended by Neurology. Continue statin PT OT, speech therapy evaluation, fall precautions, dysphagia screen Further management based on MRI results Patient and family was discussed in detail about risks and complications of being started on Plavix given history of intracranial bleed x2. Patient prefers to be DNI DNR, no aggressive procedures or surgery, understands and agrees with current management. Patient/family were made aware of lack of neurosurgery service at [facility]. Patient and family/POA comfortable to be treated in this hospital as per recommendations by neurology. Plan to repeat CT head tomorrow Replete electrolytes as needed. Neurology consulted. Continue neurochecks I personally reviewed the record. Patient is interviewed and examined at bedside. Patient's care is coordinated with Kadi Gandhi PA-C. Please refer to the documentation above for details of patient's presentation and for discussion of other issues.
[2023-02-04] MEDS ORDERED: CLOPIDOGREL BISULFATE 75 MG TAB PO ONE (13:33)
[2023-02-04] MEDS ORDERED: ACETAMINOPHEN 325 MG TAB PO STA (16:27)
[2023-02-04] MEDS ORDERED: GADOBUTROL 65ML VIAL IV ONE (17:53)
[2023-02-04] MEDS ORDERED: DEXTROSE 50% 50 ML SYRINGE IV PRN (18:30)
[2023-02-04] MEDS ORDERED: GLUCAGON FOR INJ 1 MG VIAL SQ PRN (18:30)
[2023-02-04] MEDS ORDERED: ONDANSETRON INJ 2 MG/ML 2 ML VIAL IV PRN (18:30)
[2023-02-04] MEDS ORDERED: GLUCOSE 40% GEL 15 GM TUBE PO PRN (18:30)
[2023-02-04] MEDS ORDERED: GLUCOSE 10 TAB/TUBE PO PRN (18:30)
[2023-02-04] MEDS ORDERED: PHARMACIST DISCHARGE MED REC CONSULT PRN (18:30)
[2023-02-04] MEDS ORDERED: POLYETHYLENE (MIRALAX) 17 GM PACK PO PRN (18:30)
[2023-02-04] MEDS ORDERED: CARBOHYDRATES FOR HYPOGLYCEMIA PO PRN (18:30)
--- NOTE | 2023-02-04 19:01 | Magnetic Resonance Report ---
MRI OF THE BRAIN COMBO CLINICAL HISTORY: Strokelike symptoms. COMPARISON STUDY: CT of the brain dated 02/04/2023. MRI of the brain dated 12/29/2022. TECHNIQUE: MRI of the brain was performed utilizing various T1 and T2-weighted sequences in the axial , sagittal, and coronal planes. Contrast-enhanced sequences were acquired following the administratio n of 8.8 cc of Gadavist. FINDINGS: Brain parenchyma: There are punctate foci of restricted diffusion identified in the right occipital l obe, as well as a focus of restricted diffusion in the right caudate head. There are also foci of res tricted diffusion in the high right parietal cortex, the right posterior parieto-occipital cortex, an d in the high left frontal cortex. These findings likely represent foci of acute to subacute ischemia . Again seen is a subacute hemorrhage in the left cerebellar hemisphere with nonspecific abnormal enh ancement and mild edema. No additional foci of hemorrhage are identified. Chronic infarcts are seen i n the right cerebellar hemisphere, the right occipital lobe, and the high right frontal lobe. A 1.8 c m enhancing extra-axial lesion along the right frontal convexity on axial high resolution post contra st image #103 likely represents a meningioma. No additional enhancing lesion is suggested on the post contrast images. There is age-related cortical change noting advanced subcortical and periventricular microangiopathic disease. No extra-axial fluid collection is seen. The cerebellar tonsils are normal in configuration. Ventricles, sulci, and cisterns: Prominent secondary to involutional change. Pituitary and sella: Unremarkable. Intracranial vasculature: Normal flow voids are maintained at the skull base. Orbits: The bony orbits are grossly intact. Orbital contents are normal in appearance noting bilatera l ocular lens implants. Sinuses and mastoids: The paranasal sinuses are clear. There are trace mastoid effusions. Calvarium: Unremarkable. Cervical cord: Partially visualized cervical spinal cord is normal in morphology and signal intensity . IMPRESSION: 1. There are numerous small foci of restricted diffusion scattered throughout the brain parenchyma as above consistent with foci of acute to subacute ischemia. The distribution favors an embolic phenome non. 2. Subacute hemorrhage in the left occipital lobe with persistent edema and nonspecific enhancement. A follow-up examination in 3-4 months time is recommended for reassessment. 3. No acute hemorrhage is identified and no midline shift is seen. 4. An enhancing extra-axial lesion along the right frontal convexity is typical for a meningioma. The re is no significant associated mass effect. 5. Additional findings as above. ACT 112: Negative or not required by law. Electronically signed by: Cornell Baum M.D. 02/04/2023 6:59 PM
[2023-02-04] MEDS: ROSUVASTATIN CALCIUM 20 MG TAB PO SCH (20:14)
[2023-02-04] MEDS: DOCUSATE SODIUM/SENNA 50/8.6MG TAB PO SCH (20:14)
[2023-02-04] MEDS: ACETAMINOPHEN 325 MG TAB PO PRN (20:14)
[2023-02-04] MEDS: PREGABALIN 75 MG CAP PO SCH (20:16)
[2023-02-04] MEDS: INSULIN ASPART PER UNIT CHARGE SC SCH (20:18)
[2023-02-04 21:30] LABS: Appearance Urine Clear (Clear); Bacteria Urine Automated Negative (Negative); Bilirubin Urine Negative (Negative); Blood Urine Negative (Negative); Cast Urine Automated 0 /lpf (0-5); Color Urine Yellow; Glucose Urine UA Negative (Negative); Ketones Urine Negative (Negative); Leukocyte Esterase Urine Negative (Negative); Nitrite Urine Negative (Negative); Protein Urine Trace (Negative); RBC Urine Automated 0-4 /hpf (0-4); Specific Gravity Urine > 1.045 (1.000-1.030); Urobilinogen Urine Negative (Negative); pH Urine 6.5 (4.5-7.5)
[2023-02-05] MEDS: LEVOTHYROXINE SODIUM 25 MCG TABLET PO SCH (04:49)
[2023-02-05] MEDS: ACETAMINOPHEN 325 MG TAB PO PRN ×3 (04:52→20:30)
[2023-02-05 06:37] LABS: Basophils # (auto) 0.02 K/uL (0-0.2); Basophils % (auto) 0.5 %; Eosinophils # (auto) 0.08 K/uL (0-0.50); Eosinophils % (auto) 2.1 %; Immature Granulocytes # (auto) 0.03 K/uL (0.01-0.20); Immature Granulocytes % (auto) 0.8 %; Lymphocytes # (auto) 1.46 K/uL (1.2-3.4); Lymphocytes % (auto) 38.3 %; Mean Corpuscular Hemoglobin 29.8 pg (25.0-34.0); Mean Corpuscular Hgb Conc 33.3 g/dL (32.0-36.0); Mean Corpuscular Volume 89.4 fL (80.0-100.0); Mean Platelet Volume 9.3 fL (9.4-12.4); Monocytes % (auto) 13.1 %; Neutrophils # (auto) 1.72 K/uL (1.40-6.50); Neutrophils % (auto) 45.2 %; Platelet Count 124 K/uL (130-400); RDW Coefficient of Variation 15.9 % (11.5-14.5); RDW Standard Deviation 51.3 fL (36.4-46.3); Red Blood Count 3.69 M/uL (4.70-6.10); White Blood Count 3.81 K/ul (4.8-10.8)
[2023-02-05 06:52] LABS: BUN Creatinine Ratio 18.4 (10-20); Calcium 8.5 mg/dl (8.6-10.3); Creatinine Clr Calc Pharmacy 70.3 ml/min; Est GFR (African American) 95.7 ml/min; Est GFR (Non-African American) 82.6 ml/min; Magnesium 1.6 mg/dl (1.7-2.4); Potassium 3.6 mmol/L (3.5-5.1)
[2023-02-05] MEDS: PREGABALIN 75 MG CAP PO SCH ×2 (08:54→20:30)
[2023-02-05] MEDS: CYANOCOBALAMIN (B-12) 500 MCG TABLET PO SCH (08:54)
[2023-02-05] MEDS: PANTOprazole 40 MG TAB PO SCH (08:54)
[2023-02-05] MEDS: UMECLIDINIUM/VILANTEROL 62.5/25MCG 7 PUFFS/INHALER INH SCH (08:55)
[2023-02-05] MEDS: POTASSIUM CHLORIDE 10 MEQ TABCR PO SCH (08:55)
[2023-02-05] MEDS: CLOPIDOGREL BISULFATE 75 MG TAB PO SCH (08:55)
[2023-02-05] MEDS: INSULIN ASPART PER UNIT CHARGE SC SCH ×4 (08:55→20:27)
[2023-02-05] MEDS: TORSEMIDE 20 MG TAB PO SCH (08:55)
[2023-02-05] MEDS: FLUTICASONE FUROATE 100MCG 14 PUFFS/INHALER INH SCH (08:56)
[2023-02-05] MEDS ORDERED: NON-FORMULARY MEDICATION (Fluticasone-Umeclidin-Vilanter [Trelegy Ellipta] 100-62.5-25 mcg INH SCH (09:00)
--- NOTE | 2023-02-05 11:11 | Neurology Consultation ---
Date of Consultation February 05, 2023 Assessment & Plan (1) Acute CVA (cerebrovascular accident): (2) Left arm weakness: (3) Cerebellar hemorrhage, acute: Plan this patient is very complicated from a neurologic/vascular standpoint. He has had acute, multiple small CVAs noted on MRI, 1 of which causing profound weakness of the left upper extremity. Clinically he has improved compared to yesterday with this left upper extremity strength. These multiple strokes are likely embolic in origin. This would likely be from the heart or aortic arch. Echocardiogram early last month was largely unremarkable and showed no embolic source. The patient has multiple vascular stenoses in the neck including the right greater than left carotid artery and both vertebrals. He has post left cerebellar stroke ( likely ischemic but at this point I could not exclude that being an embolic event) , with hemorrhagic transformation 1 month ago. Interestingly that stroke occurred despite being on aspirin and Plavix. The hemorrhage has largely improved , but there is a little "left over" hemorrhage in the left cerebellar hemisphere only. Clinically he is stable. He is at high risk for future stroke. Recommendations: 1. continue 75 mg clopidogrel for now. He is a treatment dilemma: I would normally initiate an anticoagulant for embolic stroke, but he had just had the large posterior fossa hemorrhage (with continued residual subacute blood), so I am quite reluctant to initiate an anticoagulant at this time. 2. consider repeat evaluation of the heart and aortic arch to look for source of embolus. Apparently cardiology will be consulted. 3. Increase activity as able and continue Physical, speech, and occupational therapy. 4. I will follow Overall, I spent a total of 75 minutes with this case including review of records, review of CT and MRI films (with Dr. Pedroza), direct evaluation of the patient at bedside, report generation, and discussion of the case with the patient, his , his daughter, and Dr. Espitia at bedside, including differential diagnosis and treatment options. History of Present Illness Reason for Consultation: patient is an 87-year-old, who I was asked to see at the request of Kadi Gandhi PA-C, for neurologic consultation regarding new stroke Requesting Physician: Kadi Gandhi PA-C Attending Physician: Audi Espitia MD History of Present Illness I 1st saw this patient in early December of 2022. He had had a left cerebellar hemispheric stroke stroke December 29, 2022 likely ischemic. It involved the left superior cerebellar artery. At that time, he was already on 75 mg clopidogrel an 81 mg aspirin. There is evidence of right internal carotid artery stenosis at the origin. On January 03 patient had a hemorrhagic transformation of the left cerebellar stroke and the antiplatelet medications were discontinued. He improved clinically and was discharged to the rehabilitation hospital on January 06. After 5 days he was back home and did not make a lot of improvement at the rehab hospital. Apparently he did very well ( the patient's and daughter are in the room providing history) at home increasing ambulation and activities. The patient woke on February 04 around 0800 able to move his left upper extremity. There may been some slight weakness of the left leg. His speech and mentation were unchanged and he had no other deficits. He arrived to the emergency room at 10:07 a.m. with a temperature of 36.9, pulse 77, respiratory 20, blood pressure 172/78, and O2 saturation 96%. On exam he had some slight dysarthria and a flaccid left upper extremity. CBC showed some anemia and magnesium was low at 1.1. Chem profile was largely unremarkable. Chest x-ray was unremarkable. CT scan of the head showed no hemorrhage left. The left cerebellar stroke was present still. CT angiography of the head was unremarkable. CT angiography of the neck revealed a 70% stenosis of the origin of the right internal carotid artery with less than 50% proximally in the left internal carotid artery. There was moderate stenosis in the origin of both vertebral arteries. MRI of the brain revealed multiple acute strokes ( at least 6) scattered in various vascular distributions throughout both hemispheres. The left cerebellar subacute stroke was still noted and there was some mild laminar necrosis/ subacute hemorrhage present still also. There was no acute hemorrhage. Revi ewed these films with Dr. Pedroza this morning, the patient is without pain and is moving his left upper extremity some. He is not confused or lightheaded. He still has anemia on CBC and urinalysis was unremarkable. Magnesium today was 1.6. He is afebrile with a blood pressure 152/64. Allergies Allergy/AdvReac Type Severity Reaction Status Date / Time codeine AdvReac Mild Anxiety Verified 05/26/22 10:56 symptoms hydrocodone AdvReac Mild Anxiety, Verified 05/26/22 10:56 insomnia Home Medications Medication Instructions Recorded Confirmed Type acetaminophen 500 mg tablet 1,000 mg PO Q8 PRN pain #60 tabs 01/06/23 02/04/23 Rx (Tylenol Extra Strength) carvedilol 12.5 mg tablet 12.5 mg PO BID #60 tabs 01/06/23 02/04/23 Rx cyanocobalamin (vitamin B-12) 1,000 mcg PO QAM #30 tabs 01/06/23 02/04/23 Rx 1,000 mcg tablet (Vitamin B-12) fluticasone fur. 100 mcg-umeclid 1 inh inhalation QAM #60 ea 01/06/23 02/04/23 Rx 62.5 mcg-vilant 25 mcg inhalat.powder (Trelegy Ellipta) levothyroxine 25 mcg tablet 25 mcg PO QAM #30 tabs 01/06/23 02/04/23 Rx losartan 25 mg tablet 50 mg PO DAILY #60 tabs 01/06/23 02/04/23 Rx multivitamin 1 tab PO QAM #30 tabs 01/06/23 02/04/23 Rx nitroglycerin 0.4 mg sublingual 0.4 mg sublingual UD #30 tabs 01/06/23 02/04/23 Rx tablet (Nitrostat) pantoprazole 40 mg tablet,delayed 40 mg PO QAM #30 tabs 01/06/23 02/04/23 Rx release potassium chloride 10 mEq 10 meq PO QAM #30 caps 01/06/23 02/04/23 Rx capsule,extended release pregabalin 75 mg capsule (Lyrica) 75 mg PO BID #60 caps 01/06/23 02/04/23 Rx rosuvastatin 20 mg tablet 40 mg PO QPM #30 tabs 01/06/23 02/04/23 Rx torsemide 20 mg tablet 20 mg PO QAM #30 tabs 01/06/23 02/04/23 Rx metformin 500 mg tablet 500 mg PO BID 02/04/23 02/04/23 History sennosides 8.6 mg-docusate sodium 2 tab-cap PO HS 02/04/23 02/04/23 History 50 mg tablet Patient History Medical History Aortic stenosis s/p TAVR BPH (benign prostatic hyperplasia) CAD (coronary artery disease) CABG x 4 (2000) Stent x1 (2006) Cath (2011) - SVG to 1st diagonal 100% occluded, other grafts patent Carotid artery disease s/p Left CEA (2011), right (2012) Carotid artery stenosis Diabetes mellitus Dyslipidemia GERD (gastroesophageal reflux disease) HTN (hypertension) Hypothyroidism Obesity ERINN (obstructive sleep apnea) CPAP with O2 3.5L HS Rest pain of both lower extremities due to atherosclerosis Surgical History Amputated finger H/O repair of right rotator cuff H/O vascular surgery (05/26/22) Right Common Femoral Artery Endarterectomy,(Right) with bovine patch - Maurizio Montana MD sBilateral Iliac Stents(Bilateral) - Maurizio Montana MD History of anesthesia reaction Slow to wake History of cardiac cath Stent x1 (2006) History of CEA (carotid endarterectomy) Left - 2011 Right - 2013 History of cholecystectomy History of colonoscopy History of coronary artery bypass graft CABG x4 (2000) [place] heart [place] [facility] [place] Hx of cataract surgery S/P laminectomy with spinal fusion Back surgeries x2 S/P TURP Family History Brother Diabetes Coronary heart disease, Onset Age: 60 Brother Coronary heart disease, Onset Age: 50 Diabetes Mother Diabetes Social History Smoking Status: Former smoker packs per day: 4; Second Hand Exposure: No; Do You Dip or Chew Tobacco: No; Hx Alcohol Use: No Hx Substance Use: No Preferred Language: Tunisian Communication Ability: Effective Legal Secretary Required: No Beliefs That Will Affect Care: None marital status: Current Living Situation: Spouse and Family current occupational status: retired Other Information That Helps Us Care for You: Yes Feels Safe at Home: Yes Safety Concerns: Feels Safe At This Time Assistive Devices: Cane, CPAP, Denture - Upper, Denture - Lower, Hearing Aid - Bilateral, Oxygen - Continuous and Walker Review of Systems Constitutional: no fever, no fatigue and no weakness Eyes: no diplopia, no eye pain and no worsening vision Ear, Nose, Mouth, Throat: + hearing loss; no ear pain, no tinnitus, no dizziness, no snoring, no hoarseness and no dysphagia Respiratory: no cough and no dyspnea Cardiovascular: no chest pain, no palpitations and no lightheadedness Gastrointestinal: no abdominal pain, no nausea and no vomiting Musculoskeletal: no back pain, no neck pain, no radicular pain, no joint pain and no myalgia Integumentary: no rash and no lesions Neurologic: + localized weakness; no gait abnormality, no generalized weakness, no tingling, no numbness, no tremor(s), no abnormal movements, no headache(s), no abnormal speech, no confusion and no memory loss Psychiatric: no depression, no irritability, no anxiety, no difficulty concentrating, no confusion and no hallucinations Endocrine: no fatigue and no flushing Hematologic / Lymphatic: no easy bleeding and no easy bruising Allergy / Immunological: no urticaria and no problem reported Exam (Neuro) Physical Exam: The patient is right-handed. The patient is awake, alert, and attentive. Speech is normal without any obvious aphasia or dysarthria. The patient can name objects, repeat phrases, and has normal spontaneous speech. Mentation and thought processes are intact, with orientation to person, place and time, and normal fund of knowledge. Attention and concentration are normal. Mood and affect are normal and appropriate. General appearance and grooming are normal. Short and long-term memory are intact to conversation. Pupils are 3 mm bilaterally and reactive to light. Extraocular eye muscles are intact without nystagmus. Visual acuity and visual fong seem normal grossly to confrontation. There are no deficits to sensation in the face in all 3 distributions of the fifth cranial nerve bilaterally. Corneal reflexes are positive bilaterally. Facial strength and symmetry was normal bilaterally. Hearing seems normal bilaterally. Palate moves well without asymmetry. There is normal sternocleidomastoid and trapezius (shoulder shrug) strength bilaterally. Tongue is midline with good strength bilaterally. Neck has a full range of motion without discomfort. There are no cervical bruits bilaterally. There are no cranial or ocular bruits. Heart is without murmur. There is a regular rhythm and rate. Cervical, thoracic, and lumbar spine are nontender to palpation. Gait was not tested but stance sitting in the chair is normal. With outstretched arms there is no drift on the right. Left arm is very weak and he cannot keep holding it out. There are no resting, postural, or action tremors. There is no ataxia with finger to nose testing. There is good facility in the right hand but he is very weak and clumsy in the left hand. No other abnormal involuntary movements are noted. Motor strength is 5/5 diffusely in the Right upper extremity including deltoids, biceps, triceps, brachioradialis, wrist flexors and extensors, data entry analyst, and intrinsic hand muscles. Strength is 3/5 in the proximal left upper extremity and 1/5 distally in the hand. Motor strength is 5/5 diffusely in the legs bilaterally including hip flexors, quadriceps, hamstrings, gastrocnemius, tibialis anterior, tibialis posterior, and Peroneii muscles. Toe extensors are normal and there is good bulk in the extensor digitorum brevis muscles bilaterally. The right upper extremity is normal tone as on the legs but there is decreased tone in left upper extremity. There is no atrophy noted in the muscles. Muscle bulk is normal, there is no tenderness to palpation, no myotonia to percussion, and no fasciculations seen. Sensory examination is intact to touch and pin throughout all 4 limbs diffusely. Reflexes are 1/4 in the biceps, triceps, brachioradialis, quadriceps, and Achilles tendons bilaterally. There is no clonus bilaterally. Toes are downgoing with plantar stimulation on the right and upgoing on the left Peripheral pulses are present and of normal quality distally in all 4 limbs. There is no peripheral edema noted in the limbs. Results & Data Vital Signs (Past 12 Hours) Vital Signs Temp Pulse Pulse Resp BP Pulse Ox O2 Del Method 02/05/23 08:22 37.1 C 70 18 152/64 H 95 Nasal Cannula 02/05/23 07:00 64 02/05/23 03:42 36.7 C 66 157/64 H 96 CPAP 02/04/23 23:12 36.4 C L 71 117/64 92 CPAP O2 Flow Rate 02/05/23 08:22 3 02/05/23 07:00 02/05/23 03:42 2 02/04/23 23:12 2 PG Care Time/CCT Total # of Minutes Spent Total Time Spent with Patient: Total time spent is greater than 50% in coordination of care (as documented) at patient's floor/unit and/or counseling patient: Coding Level of Care Code 47111 INT INP/OBS CARE 3/75MIN Diagnoses Acute CVA (cerebrovascular accident) I63.9 Left arm weakness R29.898 Cerebellar hemorrhage, acute I61.4 Time Spent (min) 75
[2023-02-05] MEDS: MAGNESIUM OXIDE 400 MG TAB PO SCH ×2 (11:24→20:30)
--- NOTE | 2023-02-05 11:25 | Cardiology Consultation ---
Date of Consultation February 05, 2023 Assessment & Plan (1) Ataxia due to acute cerebrovascular disease: (2) Dysarthria: (3) Left arm weakness: (4) Cerebellar hemorrhage, acute: (5) CAD (coronary artery disease): (6) History of transcatheter aortic valve implantation (KARLOS): Plan At this point there is not much that cardiology can offer. You could consider full anticoagulation but with hemorrhagic changes of his recent stroke I think that would be contraindicated. He has no atrial fibrillation on the monitor but I would continue him on telemetry while he is here in the hospital. You could consider consulting Dr. Montana who has seen him in the past in regard to aortic and carotid pathology which may have resulted in his recent events however, I do not believe that any surgery or intervention would be helpful in this case. At present I would continue current treatment. His was in the room during my evaluation and she was agreeable and anxious to have the patient brought home. History of Present Illness Attending Physician: Audi Espitia MD History of Present Illness This is an 87-year-old male patient who is a vasculopath as outlined below. He is status post coronary artery bypass surgery in 2000 and PCI in 2007. In 2019 he had a TAVR performed. He has had previous carotid surgery in 2012 and 2011. He has peripheral vascular disease with previous stents of the lower extremities. He presented in November with a right occipital lobe stroke. He was recovering from that event and then he had a hemorrhagic transformation and represented to the emergency department with weakness of the left upper extremity. He has been seen by neurology who has recommended dual antiplatelet therapy and no anticoagulation due to the hemorrhagic conversion of his stroke. He had an echocardiogram completed recently that shows an appropriately functioning prosthetic valve in the aortic position and no findings that would suggest thrombotic events from the heart. On telemetry he is in a normal sinus rhythm and has had no atrial fibrillation. Past cardiac history: 1.CAD, s/p CABG x4 (MCNULTY to LAD, SVG to Diag, SVG to Obtuse Marginal, SVG to PDA) in 2000, followed by PCI to Lcx 2007, repeat cath in [place] 08/10/2019 showed severe [place] vessel disease with patent grafts 2.Aortic Stenosis, s/p TAVR 11/20/2019 at [facility] via right common cartoid artery cutdown, #26 S3 valve 3.Dyslipidemia 4.HTN 5.Carotid vascular disease, s/p RCEA 08/2012 (70-99% stenosis 01/2021) and LCEA 01/2012 1.Widely patent per duplex 2013 6.PAD, s/p RCFA endarterectomy with bovine patch and bilateral iliac stents, 05/26/2023 with at [facility] 7.H/o TIA 10/2011 8.COPD on home o2 9.History of iron deficiency anemia 10.Former tobacco use Allergies Allergy/AdvReac Type Severity Reaction Status Date / Time codeine AdvReac Mild Anxiety Verified 05/26/22 10:56 symptoms hydrocodone AdvReac Mild Anxiety, Verified 05/26/22 10:56 insomnia Home Medications Medication Instructions Recorded Confirmed Type acetaminophen 500 mg tablet 1,000 mg PO Q8 PRN pain #60 tabs 01/06/23 02/04/23 Rx (Tylenol Extra Strength) carvedilol 12.5 mg tablet 12.5 mg PO BID #60 tabs 01/06/23 02/04/23 Rx cyanocobalamin (vitamin B-12) 1,000 mcg PO QAM #30 tabs 01/06/23 02/04/23 Rx 1,000 mcg tablet (Vitamin B-12) fluticasone fur. 100 mcg-umeclid 1 inh inhalation QAM #60 ea 01/06/23 02/04/23 Rx 62.5 mcg-vilant 25 mcg inhalat.powder (Trelegy Ellipta) levothyroxine 25 mcg tablet 25 mcg PO QAM #30 tabs 01/06/23 02/04/23 Rx losartan 25 mg tablet 50 mg PO DAILY #60 tabs 01/06/23 02/04/23 Rx multivitamin 1 tab PO QAM #30 tabs 01/06/23 02/04/23 Rx nitroglycerin 0.4 mg sublingual 0.4 mg sublingual UD #30 tabs 01/06/23 02/04/23 Rx tablet (Nitrostat) pantoprazole 40 mg tablet,delayed 40 mg PO QAM #30 tabs 01/06/23 02/04/23 Rx release potassium chloride 10 mEq 10 meq PO QAM #30 caps 01/06/23 02/04/23 Rx capsule,extended release pregabalin 75 mg capsule (Lyrica) 75 mg PO BID #60 caps 01/06/23 02/04/23 Rx rosuvastatin 20 mg tablet 40 mg PO QPM #30 tabs 01/06/23 02/04/23 Rx torsemide 20 mg tablet 20 mg PO QAM #30 tabs 01/06/23 02/04/23 Rx metformin 500 mg tablet 500 mg PO BID 02/04/23 02/04/23 History sennosides 8.6 mg-docusate sodium 2 tab-cap PO HS 02/04/23 02/04/23 History 50 mg tablet Patient History Medical History Aortic stenosis s/p TAVR BPH (benign prostatic hyperplasia) CAD (coronary artery disease) CABG x 4 (2000) Stent x1 (2006) Cath (2011) - SVG to 1st diagonal 100% occluded, other grafts patent Carotid artery disease s/p Left CEA (2011), right (2012) Carotid artery stenosis Diabetes mellitus Dyslipidemia GERD (gastroesophageal reflux disease) HTN (hypertension) Hypothyroidism Obesity ERINN (obstructive sleep apnea) CPAP with O2 3.5L HS Rest pain of both lower extremities due to atherosclerosis Surgical History Amputated finger H/O repair of right rotator cuff H/O vascular surgery (05/26/22) Right Common Femoral Artery Endarterectomy,(Right) with bovine patch - Maurizio Montana MD sBilateral Iliac Stents(Bilateral) - Maurizio Montana MD History of anesthesia reaction Slow to wake History of cardiac cath Stent x1 (2006) History of CEA (carotid endarterectomy) Left - 2011 Right - 2013 History of cholecystectomy History of colonoscopy History of coronary artery bypass graft CABG x4 (2000) History of heart valve replacement AVR [facility] after 2006 Hx of cataract surgery S/P laminectomy with spinal fusion Back surgeries x2 S/P TURP Family History Brother Diabetes Coronary heart disease, Onset Age: 60 Brother Coronary heart disease, Onset Age: 50 Diabetes Mother Diabetes Social History Smoking Status: Former smoker packs per day: 4; Second Hand Exposure: No; Do You Dip or Chew Tobacco: No; Hx Alcohol Use: No Hx Substance Use: No Preferred Language: Belgian Communication Ability: Effective Fittings Tightener Required: No Beliefs That Will Affect Care: None marital status: Current Living Situation: Spouse and Family current occupational status: retired Other Information That Helps Us Care for You: Yes Feels Safe at Home: Yes Safety Concerns: Feels Safe At This Time Assistive Devices: CPAP, Hospital Bed, Oxygen - at Night, Walker and Wheelchair Review of Systems Review of Systems: Review of Systems: See HPI for pertinent positives. All other 10 point review of systems are negative. Physical Exam Physical Exam: General: no acute distress and stated age Head: normocephalic, no masses, lesions, tenderness or abnormalities Eyes: conjunctiva are pink and non-injected, sclera clear Neck: supple, no adenopathy, no bruits, normal jugular venous pulse, no hepatojugular reflux Chest: normal shape and normal respiratory effort Lungs: clear to auscultation and percussion Cardiac Exam: - regular rate & rhythm, no murmurs gallops or rubs - normal S1, normal S2 Pulses: 2(+) throughout Abdomen: abdomen soft, non-tender, no abnormal masses and no hepatosplenomegaly Musculoskeletal: no gait disturbance, no joint inflammation, no deforming arthritis Extremities: no edema and no cyanosis Neuro: Left upper extremity weakness Results & Data Vital Signs (Past 12 Hours) Vital Signs Temp Pulse Pulse Resp BP Pulse Ox O2 Del Method 02/05/23 08:22 37.1 C 70 18 152/64 H 95 Nasal Cannula 02/05/23 07:00 64 02/05/23 03:42 36.7 C 66 157/64 H 96 CPAP O2 Flow Rate 02/05/23 08:22 3 02/05/23 07:00 02/05/23 03:42 2 Laboratory Results Laboratory Results - last 24 hr 02/04/23 02/04/23 02/04/23 10:26 18:35 20:50 WBC RBC Hgb Hct MCV MCH MCHC RDW Std Deviation RDW Coeff of Maryan Plt Count MPV Immature Gran % (Auto) Neut % (Auto) Lymph % (Auto) [place] % (Auto) Eos % (Auto) Baso % (Auto) Neut # (Auto) Lymph # (Auto) [place] # (Auto) Eos # (Auto) Baso # (Auto) Immature Gran # (Auto) Sodium Potassium Chloride Carbon Dioxide Anion Gap BUN Creatinine Est Cr Clr Drug Dosing Est GFR ( Amer) Est GFR (Non-Af Amer) BUN/Creatinine Ratio Glucose POC Glucose 112 H Calcium Magnesium Urine Color Yellow Urine Appearance Clear Urine pH 6.5 Ur Specific Amery > 1.045 H Urine Protein Trace H Urine Glucose (UA) Negative Urine Ketones Negative Urine Blood Negative Urine Nitrite Negative Urine Bilirubin Negative Urine Urobilinogen Negative Ur Leukocyte Esterase Negative Urine WBC (Auto) 1-5 Urine RBC (Auto) 0-4 U Hyaline Cast (Auto) 0 U Epithel Cells (Auto) 10-20 H Urine Bacteria (Auto) Negative SARS-CoV-2, RNA, NAAT NEGATIVE 02/05/23 02/05/23 02/05/23 05:30 05:30 07:55 WBC 3.81 L RBC 3.69 L Hgb 11.0 L Hct 33.0 L MCV 89.4 MCH 29.8 MCHC 33.3 RDW Std Deviation 51.3 H RDW Coeff of Maryan 15.9 H Plt Count 124 L MPV 9.3 L Immature Gran % (Auto) 0.8 Neut % (Auto) 45.2 Lymph % (Auto) 38.3 [place] % (Auto) 13.1 Eos % (Auto) 2.1 Baso % (Auto) 0.5 Neut # (Auto) 1.72 Lymph # (Auto) 1.46 [place] # (Auto) 0.50 Eos # (Auto) 0.08 Baso # (Auto) 0.02 Immature Gran # (Auto) 0.03 Sodium 142 Potassium 3.6 Chloride 105 Carbon Dioxide 31 Anion Gap 6 BUN 14 Creatinine 0.76 Est Cr Clr Drug Dosing 70.3 Est GFR ( Amer) 95.7 Est GFR (Non-Af Amer) 82.6 BUN/Creatinine Ratio 18.4 Glucose 130 H POC Glucose 133 H Calcium 8.5 L Magnesium 1.6 L Urine Color Urine Appearance Urine pH Ur Specific Amery Urine Protein Urine Glucose (UA) Urine Ketones Urine Blood Urine Nitrite Urine Bilirubin Urine Urobilinogen Ur Leukocyte Esterase Urine WBC (Auto) Urine RBC (Auto) U Hyaline Cast (Auto) U Epithel Cells (Auto) Urine Bacteria (Auto) SARS-CoV-2, RNA, NAAT Medications Administered Current Inpatient Medications Acetaminophen (Acetaminophen 325 Mg Tab) 650 mg PO Q4H PRN PRN Reason: Pain or Fever Stop: 03/06/23 18:29 Last Admin: 02/05/23 04:52 Dose: 650 mg Clopidogrel Bisulfate (Clopidogrel Bisulfate 75 Mg Tab) 75 mg PO QAM [facility] Stop: 03/07/23 08:59 Last Admin: 02/05/23 08:55 Dose: 75 mg Cyanocobalamin (Cyanocobalamin (B-12) 500 Mcg Tablet) 1,000 mcg PO QAM [facility] Stop: 03/07/23 08:59 Last Admin: 02/05/23 08:54 Dose: 1,000 mcg Dextrose (Dextrose 50% 50 Ml Syringe) 25 - 50 ml IV UD PRN; Protocol PRN Reason: Hypoglycemia Protocol Stop: 03/06/23 18:29 Fluticasone Furoate (Fluticasone Furoate 100mcg 14 Puffs/Inhaler) 1 puffs INH DAILY [facility] Stop: 03/07/23 08:59 Last Admin: 02/05/23 08:56 Dose: 1 puffs Glucagon (Glucagon For Inj 1 Mg Vial) 1 mg SQ UD PRN; Protocol PRN Reason: Hypoglycemia Protocol Stop: 03/06/23 18:29 Glucose (Glucose 10 Tab/Tube) 4 - 8 tab PO UD PRN; Protocol PRN Reason: Hypoglycemia Treatment Stop: 03/06/23 18:29 Glucose (Glucose 40% Gel 15 Gm Tube) 15 - 30 gm PO UD PRN; Protocol PRN Reason: Hypoglycemia Protocol Stop: 03/06/23 18:29 Insulin Aspart (Insulin Aspart Per Unit Charge) 0 units SC ACHS [facility] Stop: 03/06/23 20:59 Last Admin: 02/05/23 08:55 Dose: 7 units Levothyroxine Sodium (Levothyroxine Sodium 25 Mcg Tablet) 25 mcg PO DAILYBB UNA Stop: 03/07/23 06:29 Last Admin: 02/05/23 04:49 Dose: 25 mcg Magnesium Oxide (Magnesium Oxide 400 Mg Tab) 400 mg PO BID [facility] Stop: 03/07/23 10:29 Last Admin: 02/05/23 11:24 Dose: 400 mg Miscellaneous (Carbohydrates For Hypoglycemia ) 15 - 30 gm PO UD PRN PRN Reason: Hypoglycemia Protocol Stop: 03/06/23 18:29 Miscellaneous Information (Pharmacist Discharge Med Rec Consult) 1 each N/A UD PRN PRN Reason: Consult Stop: 03/06/23 18:29 Ondansetron HCl (Ondansetron Inj 2 Mg/Ml 2 Ml Vial) 4 mg IV Q6H PRN PRN Reason: Nausea Stop: 03/06/23 18:29 Pantoprazole Sodium (Pantoprazole 40 Mg Tab) 40 mg PO QAM [facility] Stop: 03/07/23 08:59 Last Admin: 02/05/23 08:54 Dose: 40 mg Polyethylene Glycol (Polyethylene (Miralax) 17 Gm Pack) 17 gm PO DAILY PRN PRN Reason: Constipation Stop: 03/06/23 18:29 Potassium Chloride (Potassium Chloride 10 Meq Tabcr) 10 meq PO QAM [facility] Stop: 03/07/23 08:59 Last Admin: 02/05/23 08:55 Dose: 10 meq Pregabalin (Pregabalin 75 Mg Cap) 75 mg PO BID [facility] Stop: 03/06/23 20:59 Last Admin: 02/05/23 08:54 Dose: 75 mg Rosuvastatin Calcium (Rosuvastatin Calcium 20 Mg Tab) 40 mg PO QPM [facility] Stop: 03/06/23 20:59 Last Admin: 02/04/23 20:14 Dose: 40 mg Senna/Docusate Sodium (Docusate Sodium/Senna 50/8.6mg Tab) 2 tab PO HS [facility] Stop: 03/06/23 20:59 Last Admin: 02/04/23 20:14 Dose: 2 tab Torsemide (Torsemide 20 Mg Tab) 20 mg PO QAM [facility] Stop: 03/07/23 08:59 Last Admin: 02/05/23 08:55 Dose: 20 mg Umeclidinium/Vilanterol (Umeclidinium/Vilanterol 62.5/25mcg 7 Puffs/Inhaler) 1 puffs INH DAILY [facility] Stop: 03/07/23 08:59 Last Admin: 02/05/23 08:55 Dose: 1 puffs
--- NOTE | 2023-02-05 13:44 | Hospitalist Progress Note ---
Date of Service February 05, 2023 Assessment & Plan (1) Acute CVA (cerebrovascular accident): (2) Cerebellar stroke: (3) Left arm weakness: Plan: Patient is 87-year-old male with PMH recent CVA 12/29/22 with hemorrhagic transformation presented to ER with c/o left arm weakness. Patient is a 87-year-old male with history of acute left cerebellar ischemic infarct on 12/29/2022. He was placed on aspirin and Plavix. On 01/03/2023 patient had hemorrhagic transformation of the stroke in the left cerebellar hemisphere with some mass effect. Patient did not want any neurosurgical intervention. Antiplatelets were held and patient was given IV Decadron. Patient was discharged to rehab on 01/05/2023. Patient went home on 01/13/2023. He presented to the ED with left upper weakness on waking up. In the ED, patient underwent CT head which did not show any acute hemorrhage, mass effect. There was evolving left cerebellar stroke at the site of previous hemorrhage. CTA head and neck similar to last admission. Patient was admitted to telemetry floor for further monitoring. MRI brain showed numerous small foci of restricted diffusion scattered throughout the brain parenchyma consistent with acute to subacute ischemia. Favors embolic phenomenon. Subacute hemorrhage seen in left occipital lobe with persistent edema. Discussed with Dr. Vivar from neurology. The likely source of patient's stroke is embolic which would warrant anticoagulation; but patient recently had large posterior fossa hemorrhage. So, recommended Plavix 75 mg. Cardiology consulted for possible embolic source; not much cardiology can offer. Plan to continue to monitor on telemetry for atrial fibrillation. Aspiration precautions PT/OT consult Continue home rosuvastatin Allow permissive HTN Monitor closely for any signs of bleeding, changes in mental status, neuro checks (4) Hypomagnesemia: Plan: Magnesium: 1.1 In ER given 2 g magnesium sulfate IV Oral magnesium restarted (5) CAD (coronary artery disease): Plan: S/P CABG x 4 History Aortic stenosis s/p TAVR Denies chest pain, shortness of breath Aspirin has been on hold secondary to recent stroke hemorrhagic conversion Hold carvedilol Continue rosuvastatin (6) Peripheral artery disease: (7) S/P vascular surgery: Plan: S/P right common femoral endarterectomy, bilateral common iliac stents, carotid artery stenosis s/p thromboendarterectomy w/ patch CTA with noted significant right-sided stenosis Patient follows with Dr. [place], will need outpatient follow-up Continue rosuvastatin (8) Diabetes mellitus, type II: Plan: A1c: 7.6 on 08/06/22 Hold home metformin NovoLog sliding scale per protocol (9) COPD (chronic obstructive pulmonary disease): Plan: Chronic hypoxic respiratory failure Uses 3 L oxygen during the day as needed No signs acute exacerbation Continue supplemental oxygen use as needed Continue home inhalers (10) HTN (hypertension): Plan: Allow permissive hypertension Hold home lisinopril, carvedilol for now (11) ERINN (obstructive sleep apnea): Plan: CPAP at bedtime with 3-3.5 L oxygen DVT Prophylaxis SCDs for now DNR/DNI as per discussion with pt Follows with Dr Anthony for routine care Time spent evaluating patient, direct bedside care, chart review, placing orders, interpretation of diagnostic studies, discussion with consultants, patient, and family members, as well as other required patient management activities is 60 minutes. Please note the above document was generated using voice recognition software. It may contain grammatical, syntax or spelling errors. Any formal questions or concerns about the content, text or information contained within the body of this dictation should be directly addressed to the provider for clarification Admission and Anticipated Discharge Date Admission Date: February 04, 2023 Subjective Patient seen at bedside multiple times during the day. His daughter and were also present at bedside. Patient reports slight improvement in the weakness of left arm. No other complaints. Review of Systems Review of Systems: All systems reviewed & are unremarkable except as noted in Subjective Physical Exam Physical Exam: Constitutional: WD/WN, vitals as above, NAD, sitting up in bed, pleasant, conversing easily Respiratory: normal respiratory effort, lungs clear to auscultation, no wheeze, rales, rhonchi. Normal insp/exp effort, no accessory muscle use Cardiovascular: RRR, no murmur, no edema Vessels: no JVD or carotid bruit Chest: normal inspection of chest Abdomen: normal bowel sounds, soft, nontender, no hepatosplenomegaly Musculoskeletal: no cyanosis or clubbing Skin: no rashes, warm and dry normal turgor Neurologic: PERRL, EOMI, accommodation nl, no face palsy, no dysarthria CN's II- XI intact bilaterally. Strength 5 x 5 bilaterally in lower extremity. Strength 3/5 in proximal left upper extremity and 1 x 5 distally in the hand. Sensation intact throughout. Psychiatric: A+Ox3, euthymic affect Results & Data Results & Data Vital Signs (Past 12 Hours) Vital Signs Temp Pulse Pulse Pulse Resp BP Pulse Ox 02/05/23 11:30 36.7 C 77 18 123/66 94 02/05/23 11:36 02/05/23 08:22 37.1 C 70 18 152/64 H 95 02/05/23 07:00 64 02/05/23 03:42 36.7 C 66 157/64 H 96 O2 Del Method O2 Flow Rate 02/05/23 11:30 Room Air 02/05/23 11:36 Room Air 02/05/23 08:22 Nasal Cannula 3 02/05/23 07:00 02/05/23 03:42 CPAP 2 Laboratory Results Laboratory Results WBC 3.81 K/ul (4.8-10.8) L 02/05/23 05:30 RBC 3.69 M/uL (4.70-6.10) L 02/05/23 05:30 Hgb 11.0 g/dl (14.0-18.0) L 02/05/23 05:30 POC Hgb 12.2 g/dl (14.0-18.0) L 02/04/23 10:24 Hct 33.0 % (42.0-52.0) L 02/05/23 05:30 POC Hct 36 % (42-52) L 02/04/23 10:24 MCV 89.4 fL (80.0-100.0) 02/05/23 05:30 MCH 29.8 pg (25.0-34.0) 02/05/23 05:30 MCHC 33.3 g/dL (32.0-36.0) 02/05/23 05:30 RDW Std Deviation 51.3 fL (36.4-46.3) H 02/05/23 05:30 RDW Coeff of Maryan 15.9 % (11.5-14.5) H 02/05/23 05:30 Plt Count 124 K/uL (130-400) L 02/05/23 05:30 MPV 9.3 fL (9.4-12.4) L 02/05/23 05:30 Immature Gran % (Auto) 0.8 % 02/05/23 05:30 Neut % (Auto) 45.2 % 02/05/23 05:30 Lymph % (Auto) 38.3 % 02/05/23 05:30 [place] % (Auto) 13.1 % 02/05/23 05:30 Eos % (Auto) 2.1 % 02/05/23 05:30 Baso % (Auto) 0.5 % 02/05/23 05:30 Neut # (Auto) 1.72 K/uL (1.40-6.50) 02/05/23 05:30 Lymph # (Auto) 1.46 K/uL (1.2-3.4) 02/05/23 05:30 [place] # (Auto) 0.50 K/uL (0.11-0.59) 02/05/23 05:30 Eos # (Auto) 0.08 K/uL (0-0.50) 02/05/23 05:30 Baso # (Auto) 0.02 K/uL (0-0.2) 02/05/23 05:30 Immature Gran # (Auto) 0.03 K/uL (0.01-0.20) 02/05/23 05:30 PT 10.4 Seconds (9.0-12.0) 02/04/23 10:15 INR 0.9 (0.9-1.1) 02/04/23 10:15 APTT 26.5 Seconds (21.0-31.0) 02/04/23 10:15 PTT Ratio 0.9 02/04/23 10:15 POC Sodium 143 mmol/L (135-144) 02/04/23 10:24 Sodium 142 mmol/L (136-145) 02/05/23 05:30 POC Potassium 4.2 mmol/L (3.3-5.0) 02/04/23 10:24 Potassium 3.6 mmol/L (3.5-5.1) 02/05/23 05:30 POC Chloride 102 mmol/L (101-112) 02/04/23 10:24 Chloride 105 mmol/L (98-107) 02/05/23 05:30 Carbon Dioxide 31 mmol/L (21-32) 02/05/23 05:30 POC Total CO2 28 mmol/L (24-31) 02/04/23 10:24 Anion Gap 6 (3-11) 02/05/23 05:30 POC Anion Gap 18.0 mmol/L (16-25) 02/04/23 10:24 POC BUN 16 mg/dl (7-18) 02/04/23 10:24 BUN 14 mg/dl (6-23) 02/05/23 05:30 Creatinine 0.76 mg/dl (0.6-1.4) 02/05/23 05:30 POC Creatinine 0.7 mg/dl (0.6-1.3) 02/04/23 10:24 Est Cr Clr Drug Dosing 70.3 ml/min 02/05/23 05:30 Est GFR ( Amer) 95.7 ml/min 02/05/23 05:30 Est GFR (Non-Af Amer) 82.6 ml/min 02/05/23 05:30 BUN/Creatinine Ratio 18.4 (10-20) 02/05/23 05:30 Glucose 130 mg/dl (70-99(Fasting)) H 02/05/23 05:30 POC Glucose 127 mg/dl (70-99) H 02/05/23 12:02 POC Glucose (other) 150 mg/dl (70-99) H 02/04/23 10:24 Calcium 8.5 mg/dl (8.6-10.3) L 02/05/23 05:30 POC Ioniz Calcium Bia 1.18 mmol/l (1.12-1.32) 02/04/23 10:24 Magnesium 1.6 mg/dl (1.7-2.4) L 02/05/23 05:30 Total Bilirubin 0.4 mg/dl (0.2-1.0) 02/04/23 10:15 AST 23 U/L (13-39) 02/04/23 10:15 ALT 27 U/L (7-52) 02/04/23 10:15 Alkaline Phosphatase 37 U/L (34-104) 02/04/23 10:15 Troponin I High Sens 6.0 pg/ml (0-20) 02/04/23 10:15 Total Protein 6.9 gm/dl (6.0-8.3) 02/04/23 10:15 Albumin 4.0 gm/dl (3.4-5.0) 02/04/23 10:15 Globulin 2.9 gm/dl (2.5-4.0) 02/04/23 10:15 Albumin/Globulin Ratio 1.4 (0.9-2) 02/04/23 10:15 Urine Color Yellow 02/04/23 20:50 Urine Appearance Clear (Clear) 02/04/23 20:50 Urine pH 6.5 (4.5-7.5) 02/04/23 20:50 Ur Specific [place] > 1.045 (1.000-1.030) H 02/04/23 20:50 Urine Protein Trace (Negative) H 02/04/23 20:50 Urine Glucose (UA) Negative (Negative) 02/04/23 20:50 Urine Ketones Negative (Negative) 02/04/23 20:50 Urine Blood Negative (Negative) 02/04/23 20:50 Urine Nitrite Negative (Negative) 02/04/23 20:50 Urine Bilirubin Negative (Negative) 02/04/23 20:50 Urine Urobilinogen Negative (Negative) 02/04/23 20:50 Ur Leukocyte Esterase Negative (Negative) 02/04/23 20:50 Urine WBC (Auto) 1-5 /hpf (0-5) 02/04/23 20:50 Urine RBC (Auto) 0-4 /hpf (0-4) 02/04/23 20:50 U Hyaline Cast (Auto) 0 /lpf (0-5) 02/04/23 20:50 U Epithel Cells (Auto) 10-20 /lpf (0-5) H 02/04/23 20:50 Urine Bacteria (Auto) Negative (Negative) 02/04/23 20:50 SARS-CoV-2, RNA, NAAT NEGATIVE (NEGATIVE) 02/04/23 10:26 Impressions Chest X-Ray 02/04/23 10:22 SINGLE VIEW CHEST CLINICAL HISTORY: Neurological deficit. Stroke like symptoms. FINDINGS: An AP, portable, upright chest radiograph is compared to study dated 12/29/2022. The examination is degraded by portable technique, apical lordotic positioning, and patient rotation. The patient is status post midline sternotomy and cardiac valve surgery. The heart is enlarged noting atherosclerotic calcification of the thoracic area. The pulmonary vasculature is noncongested. Chronic interstitial thickening is similar to previous. There is bibasilar scarring/atelectasis. The lungs and pleural spaces are otherwise clear. No pneumothorax is seen. The skeletal structures are osteopenic. The bony thorax is grossly intact. Cholecystectomy changes noted in the right upper quadrant. IMPRESSION: Cardiomegaly with no active disease in the chest. ACT 112: Negative or not required by law. Electronically signed by: Cornell Baum M.D. 02/04/2023 11:[address] 02/04/23 10:[address] OF THE BRAIN; CT ANGIOGRAM OF THE BRAIN; CT ANGIOGRAM OF THE NECK CLINICAL HISTORY: Neurologic deficit. Stroke like symptoms. Left-sided weakness. COMPARISON STUDY: CT of the brain dated 01/04/2023. CT angiogram of the head and neck dated 12/29/2022. TECHNIQUE: Unenhanced axial CT scan of the brain is performed. Subsequently, following the IV administration of 120 of Optiray 320, CT angiogram of the head and neck was performed from the aortic arch to the vertex. Images are reviewed in the axial, sagittal, and coronal planes. 3-D MIPS images are created and assessed. IV contrast was administered without complication. All measurements were calculated based on NASCET criteria. A dose lowering technique was utilized adhering to the principles of ALARA. 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 There is an evolving left cerebellar infarct at the site of prior hemorrhage. No residual blood products are clearly seen. Additional chronic infarcts are seen in the right cerebellar hemisphere comment the right frontal lobe, and the right parieto-occipital region. There is a chronic lacunar infarct in the right caudate head. There is no acute hemorrhage, mass effect, or evidence of acute territorial ischemia by CT criteria. There is no evidence of enhancing mass lesion on the angiogram phase images. The ventricles, sulci, and cisterns are prominent secondary to involutional change. Griffin-white matter differentiation is preserved. No extra-axial fluid collection is seen. Thoracic aorta: There is atherosclerotic calcification of the thoracic aorta. Visualized portions of the thoracic aorta are normal in caliber. The aortic arch demonstrates bovine variant anatomy. Right carotid arterial system: The right common carotid artery is widely patent. There is advanced atherosclerotic plaque within the carotid bulb. This causes approximately 75% focal stenosis at the origin of the right internal carotid artery seen on image #161. The mid to distal internal carotid artery are widely patent. 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 The remainder of the vessel is patent. Left carotid arterial system: The left common carotid artery is widely patent. There is advanced atherosclerotic plaque within the left carotid bulb. This causes less than 50% stenosis of the proximal internal carotid artery. The mid to distal internal carotid artery are widely patent, as is the external carotid artery. Vertebral arteries: There is moderate focal stenosis at the origin of both vertebral arteries. The vertebral arteries are otherwise patent bilaterally noting mild left-sided dominance.. Subclavian arteries: The subclavian arteries are widely patent bilaterally. Intracranial vasculature: There is atherosclerotic calcification of the cavernous carotid and vertebral arteries. The internal carotid arteries are patent at the skull base, as are the anterior and middle cerebral arteries bilaterally. The left A1 segment is diminutive. The vertebrobasilar system and posterior cerebral arteries are widely patent. The left vertebral artery is dominant. There are large bilateral posterior communicating arteries. There is no aneurysm, high-grade stenosis, or focal vessel cut off seen throughout the intracranial circulation. Jugular veins: Patent bilaterally. Dural sinuses: Patent. Lung apices: Partially visualized upper lobe lung parenchyma appears clear. Soft tissues: The visualized pharyngeal soft tissues are normal in appearance noting angiographic phase technique. The oropharyngeal airway appears widely patent. The salivary and thyroid glands are normal in appearance. No cervical lymphadenopathy is seen. Skeletal structures: The skeletal structures are osteopenic. The calvarium appears intact. The cervical spine is maintained noting multilevel spondylosis. The patient is status post midline sternotomy. Orbits: The bony orbits are intact. Orbital contents are normal as visualized noting bilateral ocular lens implants. Sinuses and mastoids: The paranasal sinuses are clear. There is trace left mastoid effusion. The right mastoid air cells are well pneumatized. IMPRESSION: 1. There is no acute hemorrhage, mass effect, or evidence of acute territorial ischemia by CT criteria. 2. 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 3. Unremarkable CT angiogram of the brain. 4. 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 5. There is less than 50% focal stenosis of the proximal left internal carotid artery. 6. There is moderate focal stenosis at the origin of both vertebral arteries. 7. 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 The remainder of the vessel is patent. ACT 112: Negative or not required by law. Electronically signed by: Cornell Baum M.D. 02/04/2023 11:07 AM Head CTA 02/04/23 10:[address] OF THE BRAIN; CT ANGIOGRAM OF THE BRAIN; CT ANGIOGRAM OF THE NECK CLINICAL HISTORY: Neurologic deficit. Stroke like symptoms. Left-sided weakness. COMPARISON STUDY: CT of the brain dated 01/04/2023. CT angiogram of the head and neck dated 12/29/2022. TECHNIQUE: Unenhanced axial CT scan of the brain is performed. Subsequently, following the IV administration of 120 of Optiray 320, CT angiogram of the head and neck was performed from the aortic arch to the vertex. Images are reviewed in the axial, sagittal, and coronal planes. 3-D MIPS images are created and assessed. IV contrast was administered without complication. All measurements were calculated based on NASCET criteria. A dose lowering technique was utilized adhering to the principles of ALARA. 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 There is an evolving left cerebellar infarct at the site of prior hemorrhage. No residual blood products are clearly seen. Additional chronic infarcts are seen in the right cerebellar hemisphere comment the right frontal lobe, and the right parieto-occipital region. There is a chronic lacunar infarct in the right caudate head. There is no acute hemorrhage, mass effect, or evidence of acute territorial ischemia by CT criteria. There is no evidence of enhancing mass lesion on the angiogram phase images. The ventricles, sulci, and cisterns are prominent secondary to involutional change. Griffin-white matter differentiation is preserved. No extra-axial fluid collection is seen. Thoracic aorta: There is atherosclerotic calcification of the thoracic aorta. Visualized portions of the thoracic aorta are normal in caliber. The aortic arch demonstrates bovine variant anatomy. Right carotid arterial system: The right common carotid artery is widely patent. There is advanced atherosclerotic plaque within the carotid bulb. This causes approximately 75% focal stenosis at the origin of the right internal carotid artery seen on image #161. The mid to distal internal carotid artery are widely patent. 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 The remainder of the vessel is patent. Left carotid arterial system: The left common carotid artery is widely patent. There is advanced atherosclerotic plaque within the left carotid bulb. This causes less than 50% stenosis of the proximal internal carotid artery. The mid to distal internal carotid artery are widely patent, as is the external carotid artery. Vertebral arteries: There is moderate focal stenosis at the origin of both vertebral arteries. The vertebral arteries are otherwise patent bilaterally noting mild left-sided dominance.. Subclavian arteries: The subclavian arteries are widely patent bilaterally. Intracranial vasculature: There is atherosclerotic calcification of the cavernous carotid and vertebral arteries. The internal carotid arteries are patent at the skull base, as are the anterior and middle cerebral arteries bilaterally. The left A1 segment is diminutive. The vertebrobasilar system and posterior cerebral arteries are widely patent. The left vertebral artery is dominant. There are large bilateral posterior communicating arteries. There is no aneurysm, high-grade stenosis, or focal vessel cut off seen throughout the intracranial circulation. Jugular veins: Patent bilaterally. Dural sinuses: Patent. Lung apices: Partially visualized upper lobe lung parenchyma appears clear. Soft tissues: The visualized pharyngeal soft tissues are normal in appearance noting angiographic phase technique. The oropharyngeal airway appears widely patent. The salivary and thyroid glands are normal in appearance. No cervical lymphadenopathy is seen. Skeletal structures: The skeletal structures are osteopenic. The calvarium appears intact. The cervical spine is maintained noting multilevel spondylosis. The patient is status post midline sternotomy. Orbits: The bony orbits are intact. Orbital contents are normal as visualized noting bilateral ocular lens implants. Sinuses and mastoids: The paranasal sinuses are clear. There is trace left mastoid effusion. The right mastoid air cells are well pneumatized. IMPRESSION: 1. There is no acute hemorrhage, mass effect, or evidence of acute territorial ischemia by CT criteria. 2. 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 3. Unremarkable CT angiogram of the brain. 4. 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 5. There is less than 50% focal stenosis of the proximal left internal carotid artery. 6. There is moderate focal stenosis at the origin of both vertebral arteries. 7. 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 The remainder of the vessel is patent. ACT 112: Negative or not required by law. Electronically signed by: Cornell Baum M.D. 02/04/2023 11:07 AM Neck CTA 02/04/23 10:[address] OF THE BRAIN; CT ANGIOGRAM OF THE BRAIN; CT ANGIOGRAM OF THE NECK CLINICAL HISTORY: Neurologic deficit. Stroke like symptoms. Left-sided weakness. COMPARISON STUDY: CT of the brain dated 01/04/2023. CT angiogram of the head and neck dated 12/29/2022. TECHNIQUE: Unenhanced axial CT scan of the brain is performed. Subsequently, following the IV administration of 120 of Optiray 320, CT angiogram of the head and neck was performed from the aortic arch to the vertex. Images are reviewed in the axial, sagittal, and coronal planes. 3-D MIPS images are created and assessed. IV contrast was administered without complication. All measurements were calculated based on NASCET criteria. A dose lowering technique was utilized adhering to the principles of ALARA. 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 There is an evolving left cerebellar infarct at the site of prior hemorrhage. No residual blood products are clearly seen. Additional chronic infarcts are seen in the right cerebellar hemisphere comment the right frontal lobe, and the right parieto-occipital region. There is a chronic lacunar infarct in the right caudate head. There is no acute hemorrhage, mass effect, or evidence of acute territorial ischemia by CT criteria. There is no evidence of enhancing mass lesion on the angiogram phase images. The ventricles, sulci, and cisterns are prominent secondary to involutional change. Griffin-white matter differentiation is preserved. No extra-axial fluid collection is seen. Thoracic aorta: There is atherosclerotic calcification of the thoracic aorta. Visualized portions of the thoracic aorta are normal in caliber. The aortic arch demonstrates bovine variant anatomy. Right carotid arterial system: The right common carotid artery is widely patent. There is advanced atherosclerotic plaque within the carotid bulb. This causes approximately 75% focal stenosis at the origin of the right internal carotid artery seen on image #161. The mid to distal internal carotid artery are widely patent. 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 The remainder of the vessel is patent. Left carotid arterial system: The left common carotid artery is widely patent. There is advanced atherosclerotic plaque within the left carotid bulb. This causes less than 50% stenosis of the proximal internal carotid artery. The mid to distal internal carotid artery are widely patent, as is the external carotid artery. Vertebral arteries: There is moderate focal stenosis at the origin of both vertebral arteries. The vertebral arteries are otherwise patent bilaterally noting mild left-sided dominance.. Subclavian arteries: The subclavian arteries are widely patent bilaterally. Intracranial vasculature: There is atherosclerotic calcification of the cavernous carotid and vertebral arteries. The internal carotid arteries are patent at the skull base, as are the anterior and middle cerebral arteries bilaterally. The left A1 segment is diminutive. The vertebrobasilar system and posterior cerebral arteries are widely patent. The left vertebral artery is dominant. There are large bilateral posterior communicating arteries. There is no aneurysm, high-grade stenosis, or focal vessel cut off seen throughout the intracranial circulation. Jugular veins: Patent bilaterally. Dural sinuses: Patent. Lung apices: Partially visualized upper lobe lung parenchyma appears clear. Soft tissues: The visualized pharyngeal soft tissues are normal in appearance noting angiographic phase technique. The oropharyngeal airway appears widely patent. The salivary and thyroid glands are normal in appearance. No cervical lymphadenopathy is seen. Skeletal structures: The skeletal structures are osteopenic. The calvarium appears intact. The cervical spine is maintained noting multilevel spondylosis. The patient is status post midline sternotomy. Orbits: The bony orbits are intact. Orbital contents are normal as visualized noting bilateral ocular lens implants. Sinuses and mastoids: The paranasal sinuses are clear. There is trace left mastoid effusion. The right mastoid air cells are well pneumatized. IMPRESSION: 1. There is no acute hemorrhage, mass effect, or evidence of acute territorial ischemia by CT criteria. 2. 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 3. Unremarkable CT angiogram of the brain. 4. 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 5. There is less than 50% focal stenosis of the proximal left internal carotid artery. 6. There is moderate focal stenosis at the origin of both vertebral arteries. 7. 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 The remainder of the vessel is patent. ACT 112: Negative or not required by law. Electronically signed by: Cornell Baum M.D. 02/04/2023 11:07 AM Brain MRI 07/07/23 12:40 MRI OF THE BRAIN COMBO CLINICAL HISTORY: Strokelike symptoms. COMPARISON STUDY: CT of the brain dated 02/04/2023. MRI of the brain dated 12/29/2022. TECHNIQUE: MRI of the brain was performed utilizing various T1 and T2-weighted sequences in the axial, sagittal, and coronal planes. Contrast-enhanced sequ ences were acquired following the administration of 8.8 cc of Gadavist. FINDINGS: Brain parenchyma: There are punctate foci of restricted diffusion identified in the right occipital lobe, as well as a focus of restricted diffusion in the right caudate head. There are also foci of restricted diffusion in the high right parietal cortex, the right posterior parieto-occipital cortex, and in the high left frontal cortex. These findings likely represent foci of acute to subacute ischemia. Again seen is a subacute hemorrhage in the left cerebellar hemisphere with nonspecific abnormal enhancement and mild edema. No additional foci of hemorrhage are identified. Chronic infarcts are seen in the right cerebellar hemisphere, the right occipital lobe, and the high right frontal lobe. A 1.8 cm enhancing extra-axial lesion along the right frontal convexity on axial high resolution post contrast image #103 likely represents a meningioma. No additional enhancing lesion is suggested on the postcontrast images. There is age-related cortical change noting advanced subcortical and periventricular microangiopathic disease. No extra-axial fluid collection is seen. The cerebellar tonsils are normal in configuration. Ventricles, sulci, and cisterns: Prominent secondary to involutional change. Pituitary and sella: Unremarkable. Intracranial vasculature: Normal flow voids are maintained at the skull base. Orbits: The bony orbits are grossly intact. Orbital contents are normal in appearance noting bilateral ocular lens implants. Sinuses and mastoids: The paranasal sinuses are clear. There are trace mastoid effusions. Calvarium: Unremarkable. Cervical cord: Partially visualized cervical spinal cord is normal in morphology and signal intensity. IMPRESSION: 1. There are numerous small foci of restricted diffusion scattered throughout the brain parenchyma as above consistent with foci of acute to subacute ischemia. The distribution favors an embolic phenomenon. 2. Subacute hemorrhage in the left occipital lobe with persistent edema and nonspecific enhancement. A follow-up examination in 3-4 months time is recommended for reassessment. 3. No acute hemorrhage is identified and no midline shift is seen. 4. An enhancing extra-axial lesion along the right frontal convexity is typical for a meningioma. There is no significant associated mass effect. 5. Additional findings as above. ACT 112: Negative or not required by law. Electronically signed by: Cornell Baum M.D. 02/04/2023 6:59 PM
[2023-02-05] MEDS: DOCUSATE SODIUM/SENNA 50/8.6MG TAB PO SCH (20:30)
[2023-02-05] MEDS: ROSUVASTATIN CALCIUM 20 MG TAB PO SCH (20:30)
[2023-02-06] MEDS: LEVOTHYROXINE SODIUM 25 MCG TABLET PO SCH (06:13)
[2023-02-06 06:55] LABS: Basophils # (auto) 0.02 K/uL (0-0.2); Basophils % (auto) 0.4 %; Eosinophils # (auto) 0.06 K/uL (0-0.50); Eosinophils % (auto) 1.2 %; Hematocrit (blood only) 35.9 % (42.0-52.0); Hemoglobin 12.1 g/dl (14.0-18.0); Immature Granulocytes # (auto) 0.02 K/uL (0.01-0.20); Immature Granulocytes % (auto) 0.4 %; Lymphocytes # (auto) 1.84 K/uL (1.2-3.4); Lymphocytes % (auto) 37.8 %; Mean Corpuscular Hemoglobin 30.2 pg (25.0-34.0); Mean Corpuscular Hgb Conc 33.7 g/dL (32.0-36.0); Mean Corpuscular Volume 89.5 fL (80.0-100.0); Mean Platelet Volume 9.2 fL (9.4-12.4); Monocytes # (auto) 0.55 K/uL (0.11-0.59); Monocytes % (auto) 11.3 %; Neutrophils # (auto) 2.38 K/uL (1.40-6.50); Neutrophils % (auto) 48.9 %; Platelet Count 131 K/uL (130-400); RDW Coefficient of Variation 15.7 % (11.5-14.5); RDW Standard Deviation 51.2 fL (36.4-46.3); Red Blood Count 4.01 M/uL (4.70-6.10); White Blood Count 4.87 K/ul (4.8-10.8)
--- NOTE | 2023-02-06 06:58 | Electrocardiogram Report ---
Test Reason : Blood Pressure : / mmHG Vent. Rate : 062 BPM Atrial Rate : 062 BPM P-R Int : 182 ms QRS Dur : 114 ms QT Int : 418 ms P-R-T Axes : 019 -29 016 degrees QTc Int : 424 ms Normal sinus rhythm Incomplete right bundle branch block Nonspecific ST abnormality Abnormal ECG When compared with ECG of 04-FEB-2023 10:20, (unconfirmed) Nonspecific T wave abnormality, worse in Lateral leads Confirmed by Cy Dempsey ([id number]) on 02/06/2023 6:58:15 AM Referred By: REFERRED SELF Confirmed By:Ihsan Dempsey
[2023-02-06 07:16] LABS: BUN Creatinine Ratio 24.7 (10-20); Calcium 9.4 mg/dl (8.6-10.3); Creatinine Clr Calc Pharmacy 69.1 ml/min; Est GFR (African American) 95.2 ml/min; Est GFR (Non-African American) 82.2 ml/min; Potassium 3.8 mmol/L (3.5-5.1)
[2023-02-06] MEDS: PREGABALIN 75 MG CAP PO SCH (08:10)
[2023-02-06] MEDS: MAGNESIUM OXIDE 400 MG TAB PO SCH (08:10)
[2023-02-06] MEDS: CYANOCOBALAMIN (B-12) 500 MCG TABLET PO SCH (08:10)
[2023-02-06] MEDS: PANTOprazole 40 MG TAB PO SCH (08:11)
[2023-02-06] MEDS: FLUTICASONE FUROATE 100MCG 14 PUFFS/INHALER INH SCH (08:11)
[2023-02-06] MEDS: CLOPIDOGREL BISULFATE 75 MG TAB PO SCH (08:11)
[2023-02-06] MEDS: TORSEMIDE 20 MG TAB PO SCH (08:11)
[2023-02-06] MEDS: INSULIN ASPART PER UNIT CHARGE SC SCH ×2 (08:12→11:54)
[2023-02-06] MEDS: UMECLIDINIUM/VILANTEROL 62.5/25MCG 7 PUFFS/INHALER INH SCH (08:12)
[2023-02-06] MEDS: ACETAMINOPHEN 325 MG TAB PO PRN (08:13)
[2023-02-06] MEDS: POTASSIUM CHLORIDE 10 MEQ TABCR PO SCH (08:13)
--- NOTE | 2023-02-06 09:39 | Neurology Progress Note ---
Date of Service February 06, 2023 Assessment & Plan (1) Acute CVA (cerebrovascular accident): (2) Left arm weakness: (3) Cerebellar hemorrhage, acute: Plan This patient is very complicated from a neurologic/vascular standpoint. He had acute, multiple small CVAs noted on MRI, 1 of which causing profound weakness of the left upper extremity, likely February 04. Clinically he is improved some compared to yesterday with this left upper extremity strength. These multiple strokes are likely embolic in origin. This would likely be from the heart or aortic arch. Echocardiogram early last month was largely unremarkable and showed no embolic source. cardiology had no further testing to do at this time but continue to monitor for atrial fibrillation. The patient has multiple vascular stenoses in the neck, including the right greater than left carotid artery and both vertebrals. He is post (12-29-22) left cerebellar hemispheric stroke ( likely ischemic, but at this point, I could not exclude that being an embolic event also) , with hemorrhagic transformation January 03. Interestingly, the cerebellar stroke occurred despite being on aspirin and Plavix. Although the hemorrhage has largely improved , but there is still some subacute hemorrhage in the left cerebellar hemisphere. Clinically he is stable. He is at high risk for future stroke. Recommendations: 1. continue 75 mg clopidogrel for now. He is a treatment dilemma: I would normally initiate an anticoagulant for embolic stroke, but with the recent large posterior fossa hemorrhage, I am quite reluctant to initiate an anticoagulant at this time. 2. consider repeat evaluation of the heart and/or the aortic arch (CTA) to look for source of embolus. 3. Increase activity as able and continue Physical, speech, and occupational therapy. 4. I have no further neurologic testing or treatment recommendations to make at this time otherwise. We can follow him in Neurology as an outpatient ( 2-3 weeks with PA) Overall, I spent a total 35 minutes with this case including review of records, direct evaluation patient bedside, report degeneration, and discussing the case with the patient and RN at bedside as well as Dr. Espitia, including differential diagnosis and treatment options. Admission and Anticipated Discharge Date Admission Date: February 04, 2023 Subjective Patient feels well with no pain or headache. Nursing reports that he is moving the left upper extremity a little better than he was yesterday. There are no new issues. Cardiology consultation did not have any significant changes to make and recommended just staying on clopidogrel for now although once his cerebellar stroke is more healed and free of hemorrhage anticoagulation could be considered. However, we do not have a obvious source of embolus currently. CBC and Chem profile were largely unremarkable. Blood pressure is 157/75 and he is afebrile. Results & Data Vital Signs (Past 12 Hours) Vital Signs Temp Pulse Pulse Pulse Resp BP Pulse Ox 02/06/23 09:00 02/06/23 08:00 72 02/06/23 07:57 36.7 C 64 18 157/75 H 94 02/06/23 03:18 36.6 C 67 18 150/70 H 97 02/05/23 23:59 77 02/05/23 22:10 37.1 C 75 16 132/69 92 02/05/23 22:00 O2 Del Method O2 Flow Rate 02/06/23 09:00 Nasal Cannula 3 02/06/23 08:00 02/06/23 07:57 Nasal Cannula 2 02/06/23 03:18 CPAP 02/05/23 23:59 02/05/23 22:10 CPAP 02/05/23 22:00 Nasal Cannula 3 Exam (Neuro) Physical Exam: The patient was sleeping when I came into the room but easily aroused with voice. He is pleasant and cooperative and has no obvious aphasia or dysarthria. He can move his arm up into the air and open and close his hand some ( 3/5 ). He has no abnormal involuntary movements. There is no facial droop. Extraocular eye muscles are intact without nystagmus. PG Care Time/CCT Total # of Minutes Spent Total Time Spent with Patient: Total time spent is greater than 50% in coordination of care (as documented) at patient's floor/unit and/or counseling patient: Coding Level of Care Code 63462 SUB INP/OBS CARE 2/35MIN Diagnoses Acute CVA (cerebrovascular accident) I63.9 Left arm weakness R29.898 Cerebellar hemorrhage, acute I61.4
--- NOTE | 2023-02-06 11:09 | Cardiology Progress Note ---
Date of Service February 06, 2023 Assessment & Plan (1) Ataxia due to acute cerebrovascular disease: (2) Dysarthria: (3) Left arm weakness: (4) Cerebellar hemorrhage, acute: (5) CAD (coronary artery disease): (6) History of transcatheter aortic valve implantation (KARLOS): Plan I agree with the plan as outlined. For now no anticoagulation and discontinue Plavix. His indicates that they will be taking him home today. He has a follow-up appointment in April with Dr. Beatty which he should keep. Admission and Anticipated Discharge Date Admission Date: February 04, 2023 Subjective The patient is resting comfortably. His was in the room. No new complaints today. Review of Systems Review of Systems: Review of Systems: See HPI for pertinent positives. All other 10 point review of systems are negative. Physical Exam Physical Exam: General: no acute distress and stated age Head: normocephalic, no masses, lesions, tenderness or abnormalities Eyes: conjunctiva are pink and non-injected, sclera clear Neck: supple, no adenopathy, no bruits, normal jugular venous pulse, no hepatojugular reflux Chest: normal shape and normal respiratory effort Lungs: clear to auscultation and percussion Cardiac Exam: - regular rate & rhythm, no murmurs gallops or rubs - normal S1, normal S2 Pulses: 2(+) throughout Abdomen: abdomen soft, non-tender, no abnormal masses and no hepatosplenomegaly Musculoskeletal: no gait disturbance, no joint inflammation, no deforming arthritis Extremities: no edema and no cyanosis Neuro: Left upper extremity weakness Results & Data Vital Signs (Past 12 Hours) Vital Signs Temp Pulse Pulse Pulse Resp BP Pulse Ox 02/06/23 09:00 02/06/23 08:00 72 02/06/23 07:57 36.7 C 64 18 157/75 H 94 02/06/23 03:18 36.6 C 67 18 150/70 H 97 02/05/23 23:59 77 O2 Del Method O2 Flow Rate 02/06/23 09:00 Nasal Cannula 3 02/06/23 08:00 02/06/23 07:57 Nasal Cannula 2 02/06/23 03:18 CPAP 02/05/23 23:59 Laboratory Results Laboratory Results - last 24 hr 02/05/23 02/05/23 02/05/23 12:02 16:54 20:27 WBC RBC Hgb Hct MCV MCH MCHC RDW Std Deviation RDW Coeff of Maryan Plt Count MPV Immature Gran % (Auto) Neut % (Auto) Lymph % (Auto) Frontier % (Auto) Eos % (Auto) Baso % (Auto) Neut # (Auto) Lymph # (Auto) Frontier # (Auto) Eos # (Auto) Baso # (Auto) Immature Gran # (Auto) Sodium Potassium Chloride Carbon Dioxide Anion Gap BUN Creatinine Est Cr Clr Drug Dosing Est GFR ( Amer) Est GFR (Non-Af Amer) BUN/Creatinine Ratio Glucose POC Glucose 127 H 117 H 126 H Calcium 02/06/23 02/06/23 02/06/23 06:22 06:22 07:39 WBC 4.87 RBC 4.01 L Hgb 12.1 L Hct 35.9 L MCV 89.5 MCH 30.2 MCHC 33.7 RDW Std Deviation 51.2 H RDW Coeff of Maryan 15.7 H Plt Count 131 MPV 9.2 L Immature Gran % (Auto) 0.4 Neut % (Auto) 48.9 Lymph % (Auto) 37.8 Frontier % (Auto) 11.3 Eos % (Auto) 1.2 Baso % (Auto) 0.4 Neut # (Auto) 2.38 Lymph # (Auto) 1.84 Frontier # (Auto) 0.55 Eos # (Auto) 0.06 Baso # (Auto) 0.02 Immature Gran # (Auto) 0.02 Sodium 141 Potassium 3.8 Chloride 103 Carbon Dioxide 32 Anion Gap 6 BUN 19 Creatinine 0.77 Est Cr Clr Drug Dosing 69.1 Est GFR ( Amer) 95.2 Est GFR (Non-Af Amer) 82.2 BUN/Creatinine Ratio 24.7 H Glucose 149 H POC Glucose 149 H Calcium 9.4 Medications Administered Current Inpatient Medications Acetaminophen (Acetaminophen 325 Mg Tab) 650 mg PO Q4H PRN PRN Reason: Pain or Fever Stop: 03/06/23 18:29 Last Admin: 02/06/23 08:13 Dose: 650 mg Clopidogrel Bisulfate (Clopidogrel Bisulfate 75 Mg Tab) [facility] [facility] [place]: 03/07/23 08:59 Last Admin: 02/06/23 08:11 Dose: 75 mg Cyanocobalamin (Cyanocobalamin (B-12) 500 Mcg Tablet) 1,000 mcg PO QAM UNA Stop: 03/07/23 08:59 Last Admin: 02/06/23 08:10 Dose: 1,000 mcg Dextrose (Dextrose 50% 50 Ml Syringe) 25 - 50 ml IV UD PRN; Protocol PRN Reason: Hypoglycemia Protocol Stop: 03/06/23 18:29 Fluticasone Furoate (Fluticasone Furoate 100mcg 14 Puffs/Inhaler) 1 puffs INH DAILY UNA Stop: 03/07/23 08:59 Last Admin: 02/06/23 08:11 Dose: 1 puffs Glucagon (Glucagon For Inj 1 Mg Vial) 1 mg SQ UD PRN; Protocol PRN Reason: Hypoglycemia Protocol Stop: 03/06/23 18:29 Glucose (Glucose 10 Tab/Tube) 4 - 8 tab PO UD PRN; Protocol PRN Reason: Hypoglycemia Treatment Stop: 03/06/23 18:29 Glucose (Glucose 40% Gel 15 Gm Tube) 15 - 30 gm PO UD PRN; Protocol PRN Reason: Hypoglycemia Protocol Stop: 03/06/23 18:29 Insulin Aspart (Insulin Aspart Per Unit Charge) 0 units SC ACHS [facility] Stop: 03/06/23 20:59 Last Admin: 02/06/23 08:12 Dose: 8 units Levothyroxine Sodium (Levothyroxine Sodium 25 Mcg Tablet) 25 mcg PO DAILYBB [facility] Stop: 03/07/23 06:29 Last Admin: 02/06/23 06:13 Dose: 25 mcg Magnesium Oxide (Magnesium Oxide 400 Mg Tab) 400 mg PO BID [facility] Stop: 03/07/23 10:29 Last Admin: 02/06/23 08:10 Dose: 400 mg Miscellaneous (Carbohydrates For Hypoglycemia ) 15 - 30 gm PO UD PRN PRN Reason: Hypoglycemia Protocol Stop: 03/06/23 18:29 Miscellaneous Information (Pharmacist Discharge Med Rec Consult) 1 each N/A UD PRN PRN Reason: Consult Stop: 03/06/23 18:29 Ondansetron HCl (Ondansetron Inj 2 Mg/Ml 2 Ml Vial) 4 mg IV Q6H PRN PRN Reason: Nausea Stop: 03/06/23 18:29 Pantoprazole Sodium (Pantoprazole 40 Mg Tab) 40 mg PO QAM [facility] Stop: 03/07/23 08:59 Last Admin: 02/06/23 08:11 Dose: 40 mg Polyethylene Glycol (Polyethylene (Miralax) 17 Gm Pack) 17 gm PO DAILY PRN PRN Reason: Constipation Stop: 03/06/23 18:29 Potassium Chloride (Potassium Chloride 10 Meq Tabcr) 10 meq PO QAM UNA Stop: 03/07/23 08:59 Last Admin: 02/06/23 08:13 Dose: 10 meq Pregabalin (Pregabalin 75 Mg Cap) 75 mg PO BID UNA Stop: 03/06/23 20:59 Last Admin: 02/06/23 08:10 Dose: 75 mg Rosuvastatin Calcium (Rosuvastatin Calcium 20 Mg Tab) 40 mg PO QPM UNA Stop: 03/06/23 20:59 Last Admin: 02/05/23 20:30 Dose: 40 mg Senna/Docusate Sodium (Docusate Sodium/Senna 50/8.6mg Tab) 2 tab PO HS UNA Stop: 03/06/23 20:59 Last Admin: 02/05/23 20:30 Dose: 2 tab Torsemide (Torsemide 20 Mg Tab) 20 mg PO QAM UNA Stop: 03/07/23 08:59 Last Admin: 02/06/23 08:11 Dose: 20 mg Umeclidinium/Vilanterol (Umeclidinium/Vilanterol 62.5/25mcg 7 Puffs/Inhaler) 1 puffs INH DAILY UNA Stop: 03/07/23 08:59 Last Admin: 02/06/23 08:12 Dose: 1 puffs
--- NOTE | 2023-02-06 11:51 | Discharge Summary ---
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 History obtained from patient, family, and chart review. Patient with history of acute left cerebellar ischemic infarct on 12/29/2022 and was placed on aspirin and Plavix. Unfortunately on 01/03/2023 patient had hemorrhagic transformation of the stroke in the left cerebellar hemisphere with some mass effect. Patient and family did not wish for any neurosurgical intervention. Antiplatelets were held. Patient was given IV Decadron. On 01/06/2023 he was discharged to rehab facility. Neurology had recommended to hold on antiplatelet medication until blood has reabsorbed. Family reports patient has been home since rehab and has been doing well. He is ambulating with the use of a walker. He had been regaining strength in his left arm. He has been able to dress himself, feed and and bathe himself. Reports still with some intermittent slurred speech. Patient reports went to bed around 930 last night. Reports when woke up this morning attempted to put on watch and noticed was unable to lift left arm. Reports this was around 8 AM this morning. Patient reports had headache this morning that lasted approximately an hour and has since resolved. During ER course patient states is now starting to be able to slightly lift left arm. Denies falls or trauma. Denies fever/chills, diaphoresis, N/V/D/C, dizziness, syncope, vision changes, neck pain, CP, SOB, cough, rhinorrhea, abdominal pain, paresthesias, lower extremity weakness, extremity edema, rashes, urinary symptoms. Admission Exam Per Admitting Provider General: no acute distress, overweight elderly male Head: normocephalic, atraumatic Eyes: conjunctiva non-injected, anicteric ENT: normal inspection external ears, nose, mucous membranes moist Neck: supple, trachea midline Lungs: clear, no respiratory distress, no wheezing/rhonchi/rales CV: RRR, no murmur, no pretibial edema Abd: normal BS, soft, non-tender Ext: no cyanosis, no calf tenderness Neuro: A&O x 3, normal affect, facial sensation is intact and symmetric, face is strong and symmetric, hard of hearing, +intermittent slurred/stuttered speech, tongue is midline, normal movement, no fasciculations, LUE +left arm weakness, barely able to lift left arm off bed, +decreased lead generation specialist strength left arm,+sensation intact. RUE: active ROM intact, good lead generation specialist strength, BLE: +pedal pushes and pulls intact, active straight leg raise to approx 30 degrees, sensation to light touch intact. Skin: warm, dry Principal Diagnosis (1) Acute CVA (cerebrovascular accident): (2) Cerebellar stroke: (3) Left arm weakness: Discharge Exam Constitutional: WD/WN, vitals as above, NAD, sitting up in bed, pleasant, conversing easily Respiratory: normal respiratory effort, lungs clear to auscultation, no wheeze, rales, rhonchi. Normal insp/exp effort, no accessory muscle use Cardiovascular: RRR, no murmur, no edema Vessels: no JVD or carotid bruit Chest: normal inspection of chest Abdomen: normal bowel sounds, soft, nontender, no hepatosplenomegaly Musculoskeletal: no cyanosis or clubbing Skin: no rashes, warm and dry normal turgor Neurologic: PERRL, EOMI, accommodation nl, no face palsy, no dysarthria CN's II- XI intact bilaterally. Strength 5 x 5 bilaterally in lower extremity. Strength 3/5 in proximal left upper extremity and 2 x 5 distally in the hand. Slightly improved compared to yesterday. Sensation intact throughout. Psychiatric: A+Ox3, euthymic affect Discharge Data Allergies Allergy/AdvReac Type Severity Reaction Status Date / Time codeine AdvReac Mild Anxiety Verified 05/26/22 10:56 symptoms hydrocodone AdvReac Mild Anxiety, Verified 05/26/22 10:56 insomnia Consultations 02/04/23 11:46 ED Decision to Admit Stat 02/04/23 18:30 Consult Neurology Routine 02/05/23 10:40 Consult Cardiology Routine Ordered Studies 02/04/23 10:22 CT angio head w con Stat CT angio neck with con Stat CT head/brain wo con Stat 02/04/23 12:40 MRI Brain [MR brain wo/w con] Urgent Hospital Course (1) Acute CVA (cerebrovascular accident): (2) Cerebellar stroke: (3) Left arm weakness: (4) Hypomagnesemia: (5) CAD (coronary artery disease): (6) Peripheral artery disease: (7) S/P vascular surgery: (8) Diabetes mellitus, type II: (9) COPD (chronic obstructive pulmonary disease): (10) HTN (hypertension): (11) ERINN (obstructive sleep apnea): Patient is a 87-year-old male with history of acute left cerebellar ischemic infarct on 12/29/2022. He was placed on aspirin and Plavix. On 01/03/2023 patient had hemorrhagic transformation of the stroke in the left cerebellar hemisphere with some mass effect. Antiplatelets were held and patient was given IV Decadron. Patient was discharged to rehab on 01/05/2023. Patient went home after a week in rehab. He presented to the ED with left upper weakness on waking up in the morning.In the ED, patient underwent CT head which did not show any acute hemorrhage, mass effect. There was evolving left cerebellar stroke at the site of previous hemorrhage. Patient was admitted to telemetry floor for further monitoring. MRI brain showed numerous small foci of restricted diffusion scattered throughout the brain parenchyma consistent with acute to subacute ischemia. Favors embolic phenomenon. Subacute hemorrhage seen in left occipital lobe with persistent edema. Neurology was consulted. As per neurology, the likely source of patient's stroke is embolic which would warrant anticoagulation; but patient recently had large posterior fossa hemorrhage. So, recommended Plavix 75 mg. Patient was started on Plavix. Cardiology consultation was also done as patient's stroke was embolic in nature. Cardiology recommended continuing current treatment with Plavix. PT OT evaluation was done; patient was recommended to go to acute rehab. However, family felt that patient will do much better at home with home PT OT. Discussion was done with neurology at discharge; neurology recommended repeat MRI brain in 1 month. If the MRI brain does not show any residual bleeding; consideration can be done to start low-dose anticoagulation after consultation with cardiology and neurology. Please note the above document was generated using voice recognition software. It may contain grammatical, syntax or spelling errors. Any formal questions or concerns about the content, text or information contained within the body of this dictation should be directly addressed to the provider for clarification Total Time Total Time Spent Total Time Spent (In Minutes): 45 Total Time Includes: Examination of the Patient, Discharge Planning, Medication Reconciliation, Communication With Other Providers and Other Discharge Plan Discharge Items Patient Disposition: Home - Home Health Services Reason For Visit: CVA Discharge Diagnosis: (1) Acute CVA (cerebrovascular accident): (2) Cerebellar stroke: (3) Left arm weakness: Activity: Resume your previous activity Non-emergency contact: Primary Care Provider Call non-emergency contact if: you have any medication questions and your symptoms worsen Follow-up/Referrals: Jae Anthony MD [Primary Care Provider] - Diet: Regular Addtl Attending Provider Instructions: You were admitted to the hospital with left arm weakness. MRI of the brain was done which showed numerous small foci of restricted diffusion scattered throug hout the brain parenchyma consistent with acute to subacute ischemia. Favors embolic phenomenon. You are evaluated by Dr. Vivar from neurology who recommended that you are started on Plavix.Neurology also recommends to have MRI brain done in 1 month time to assess residual bleed. If MRI brain doesn't show any residual bleeding; consideration should be done to start low-dose blood anticoagulation ( Eg: Eliquis 2.5 mg twice daily) after consultation with neurology(Dr. Vivar) and Dr. Beatty. You will also need cardiac monitoring for atrial fibrillation to be set up as outpatient. An appointment will be set up with your primary care doctor for sometime next week. Prescription for Plavix and magnesium is sent to your pharmacy. Pending Studies at Discharge: No Stand-Alone Forms: My [facility], Smoking Cessation Medications and DC Order Prescriptions: New clopidogrel 75 mg Tablet 75 mg PO QAM Qty: 30 0RF magnesium oxide 400 mg (241.3 mg magnesium) Tablet 400 mg PO BID Qty: 60 0RF Continued acetaminophen [Tylenol Extra Strength] 500 mg Tablet 1,000 mg PO Q8 PRN (Reason: pain) Qty: 60 0RF losartan 25 mg Tablet 50 mg PO DAILY Qty: 60 0RF multivitamin Tablet 1 tab PO QAM Qty: 30 0RF potassium chloride 10 mEq capsule, extended release 10 meq PO QAM Qty: 30 0RF carvedilol 12.5 mg tablet 12.5 mg PO BID Qty: 60 0RF torsemide 20 mg tablet 20 mg PO QAM Qty: 30 0RF cyanocobalamin (vitamin B-12) [Vitamin B-12] 1,000 mcg Tablet 1,000 mcg PO QAM Qty: 30 0RF levothyroxine 25 mcg tablet 25 mcg PO QAM Qty: 30 0RF pantoprazole 40 mg tablet,delayed release (DR/EC) 40 mg PO QAM Qty: 30 0RF nitroglycerin [Nitrostat] 0.4 mg Tablet, Sublingual 0.4 mg sublingual UD Qty: 30 0RF rosuvastatin 20 mg tablet 40 mg PO QPM Qty: 30 0RF pregabalin [Lyrica] 75 mg Capsule 75 mg PO BID Qty: 60 0RF Trelegy Ellipta 100-62.5-25 mcg blister with device 1 inh inhalation QAM Qty: 60 0RF metformin 500 mg tablet 500 mg PO BID sennosides-docusate sodium 8.6-50 mg Tablet 2 tab-cap PO HS Discharge Orders: Discharge Order (Routine); Ordered 02/06/23 Ordered By: Audi Espitia Admission Data Admit Date/Time: 02/04/23 13:26 Attending Provider: Audi Espitia Admit Provider: Stephen Pope Primary Care Provider: Jae Anthony Other Providers: Stephen Pope ; Danielito Vivar ; Bhavana Handley ; [place] ; Farrukh Santo ; Charan Marlow ; KellyDaniel oden ; Troy Shin ; Frances Hopkins ; Mary Alvarez ; Bhavana Shin ; Ben Matthews ; Juan A Malik Other Interventions: Discharge Summary Assessment (RN) Last Done: 02/06/23 12:07
[2023-02-06] MEDS ORDERED: STROKE PATIENT DISCHARGE STA (12:07)
== END 2023-02-06 14:57 | disposition home health service (06) | DRG 65 ==
LOC: ED 10:06 → SUATTDRO 13:26 → 2N 13:26

== ENCOUNTER 2024-07-04 07:39 | Inpatient (IN) ==
--- NOTE | 2024-06-13 12:04 | PAT Medication Instructions ---
Medication Instructions Date of Service June 13, 2024 Home Medications Medication Instructions Recorded carvedilol 12.5 mg tablet 12.5 mg PO BID #60 tabs 01/06/23 cyanocobalamin (vitamin B-12) 1,000 mcg PO QAM #30 tabs 01/06/23 1,000 mcg tablet (Vitamin B-12) fluticasone fur. 100 mcg-umeclid 1 inh inhalation QAM #60 ea 01/06/23 62.5 mcg-vilant 25 mcg inhalat.powder (Trelegy Ellipta) levothyroxine 25 mcg tablet 25 mcg PO QAM #30 tabs 01/06/23 multivitamin 1 tab PO QAM #30 tabs 01/06/23 pantoprazole 40 mg tablet,delayed 40 mg PO QAM #30 tabs 01/06/23 release potassium chloride 10 mEq 10 meq PO QAM #30 caps 01/06/23 capsule,extended release torsemide 20 mg tablet 20 mg PO QAM #30 tabs 01/06/23 clopidogrel 75 mg tablet 75 mg PO QAM #30 tabs 02/06/23 magnesium oxide 400 mg (241.3 mg 400 mg PO BID #60 tabs 02/06/23 magnesium) tablet carvedilol 12.5 mg tablet 12.5 mg PO BID cyanocobalamin (vitamin B-12) 1,000 mcg tablet (Vitamin B-12) 1,000 mcg PO QAM fluticasone fur. 100 mcg-umeclid 62.5 mcg-vilant 25 mcg inhalat.powder (Trelegy Ellipta) 1 inh inhalation QAM levothyroxine 25 mcg tablet 25 mcg PO QAM multivitamin 1 tab PO QAM pantoprazole 40 mg tablet,delayed release 40 mg PO QAM potassium chloride 10 mEq capsule,extended release 10 meq PO QAM torsemide 20 mg tablet 20 mg PO QAM metformin 500 mg tablet 1,000 mg PO QAM clopidogrel 75 mg tablet 75 mg PO QAM magnesium oxide 400 mg (241.3 mg magnesium) tablet 400 mg PO BID acetaminophen 500 mg tablet (Tylenol Extra Strength) 500 - 1,000 mg PO QID PRN pain albuterol sulfate 1.25 mg/3 mL solution for nebulization 1.25 mg inhalation Q4H PRN sob/wheezing albuterol sulfate 90 mcg/actuation aerosol inhaler 2 inh inhalation Q4H PRN sob/wheezing cetirizine 5 mg tablet 5 mg PO QAM PRN seasonal allergies docusate sodium 100 mg capsule 200 mg PO HS fenofibrate nanocrystallized 48 mg tablet 48 mg PO QPM linagliptin 5 mg tablet (Tradjenta) 5 mg PO QAM losartan 50 mg tablet 50 mg PO QAM melatonin 10 mg tablet 10 mg PO HS metformin 500 mg tablet 500 mg PO QPM nitroglycerin 0.4 mg sublingual tablet (Nitrostat) 0.4 mg sublingual UD PRN Chest Pain ondansetron HCl 4 mg tablet 4 mg PO Q6H PRN nausea/vomiting polyethylene glycol 3350 17 gram/dose oral powder (Miralax) 8.5 g PO QAM PRN ud - constipation pregabalin 100 mg capsule (Lyrica) 100 mg PO BID rosuvastatin 40 mg tablet 40 mg PO HS tamsulosin 0.4 mg capsule 0.4 mg PO HS Continue as directed nitroglycerin 0.4 mg sublingual tablet (Nitrostat) 0.4 mg sublingual UD PRN Chest Pain (if needed) ASK your prescriber and surgeon clopidogrel 75 mg tablet 75 mg PO QAM STOP taking 24 hours before surgery fenofibrate nanocrystallized 48 mg tablet 48 mg PO QPM DO NOT take the morning of surgery cyanocobalamin (vitamin B-12) 1,000 mcg tablet (Vitamin B-12) 1,000 mcg PO QAM multivitamin 1 tab PO QAM potassium chloride 10 mEq capsule,extended release 10 meq PO QAM torsemide 20 mg tablet 20 mg PO QAM metformin 500 mg tablet 1,000 mg PO QAM magnesium oxide 400 mg (241.3 mg magnesium) tablet 400 mg PO BID cetirizine 5 mg tablet 5 mg PO QAM PRN seasonal allergies linagliptin 5 mg tablet (Tradjenta) 5 mg PO QAM losartan 50 mg tablet 50 mg PO QAM polyethylene glycol 3350 17 gram/dose oral powder (Miralax) 8.5 g PO QAM PRN ud - constipation Take morning of surgery With a small sip of water, OTHERWISE NOTHING TO EAT OR DRINK AFTER MIDNIGHT: carvedilol 12.5 mg tablet 12.5 mg PO BID fluticasone fur. 100 mcg-umeclid 62.5 mcg-vilant 25 mcg inhalat.powder (Trelegy Ellipta) 1 inh inhalation QAM levothyroxine 25 mcg tablet 25 mcg PO QAM pantoprazole 40 mg tablet,delayed release 40 mg PO QAM acetaminophen 500 mg tablet (Tylenol Extra Strength) 500 - 1,000 mg PO QID PRN pain (if needed) albuterol sulfate 1.25 mg/3 mL solution for nebulization 1.25 mg inhalation Q4H PRN sob/wheezing (if needed) albuterol sulfate 90 mcg/actuation aerosol inhaler 2 inh inhalation Q4H PRN sob/wheezing (use if needed; please bring rescue inhaler with you to hospital day of surgery if possible) ondansetron HCl 4 mg tablet 4 mg PO Q6H PRN nausea/vomiting (if needed) pregabalin 100 mg capsule (Lyrica) 100 mg PO BID Take evening before surgery carvedilol 12.5 mg tablet 12.5 mg PO BID magnesium oxide 400 mg (241.3 mg magnesium) tablet 400 mg PO BID acetaminophen 500 mg tablet (Tylenol Extra Strength) 500 - 1,000 mg PO QID PRN pain (if needed) albuterol sulfate 1.25 mg/3 mL solution for nebulization 1.25 mg inhalation Q4H PRN sob/wheezing (if needed) albuterol sulfate 90 mcg/actuation aerosol inhaler 2 inh inhalation Q4H PRN sob/wheezing (if needed) docusate sodium 100 mg capsule 200 mg PO HS melatonin 10 mg tablet 10 mg PO HS metformin 500 mg tablet 500 mg PO QPM ondansetron HCl 4 mg tablet 4 mg PO Q6H PRN nausea/vomiting (if needed) polyethylene glycol 3350 17 gram/dose oral powder (Miralax) 8.5 g PO QAM PRN ud - constipation (if needed) pregabalin 100 mg capsule (Lyrica) 100 mg PO BID rosuvastatin 40 mg tablet 40 mg PO HS tamsulosin 0.4 mg capsule 0.4 mg PO HS Other Notes If you have any questions please call us at [phone] or [phone] or [phone] or [phone]
--- NOTE | 2024-06-18 11:33 | Anesthesiology Consultation ---
Date of Service June 18, 2024 Assessment & Plan (1) Encounter for pre-operative examination: Plan - check BSG am DOS. - patient's daughter reports patient has upcoming echocardiogram through [facility] cardiology. - cardiology office visit 05/30/24 [facility]: "...CAD s/p CABG x 4 (MCNULTY to LAD, SVG to diag, SVG to obtuse marginal, SVG to PDA) in 2000, followed by PCI to Lcx 2007, repeat cath in [place] 08/10/2019 showed severe osage vessel disease with patent grafts. Aortic stenosis s/p TAVR 11/20/2019...carotid vascular disease s/p RCEA 08/2012 and LCEA 01/2012...PAD s/p RCFA endarterectomy with bovine patch and bilateral iliac stents 05/26/2023. 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 No PAF seen per zio 01/2023...chronic heart failure with preserved EF-feels well from cardiac standpoint, euvolemic on exam...no anginal symptoms...repeat echo...follow up 6 months..." Chart Review Chart Review: Pending: Refer to Additional Notes / Consult section and Patient seen in Pre Admission Testing Teaching & Discussion Pre-Anesthesia Teaching/Discussion Notes: Instructed NPO after midnight before surgery, except medications with 15 cc of water. Medication instructions provided according to the PAT guidelines. History Surgery Operation Date: 07/04/24 12:10 Proposed Procedures p Right Transcarotid Artery Revascularization - Maurizio Montana MD He is accompanied today by his daughter. Patient unable to provide weight today. Height/Weight Height: 5 ft 5 in Weight: 94.801 kg Allergies Allergy/AdvReac Type Severity Reaction Status Date / Time empagliflozin Allergy Severe rash, skin Verified 06/12/24 10:54 [From Jardiance] irritation at the groin codeine AdvReac Severe Anxiety Verified 06/12/24 10:54 symptoms hydrocodone AdvReac Severe Anxiety, Verified 06/12/24 10:54 insomnia Iodinated Contrast Media AdvReac Severe drowsy, Verified 06/12/24 10:54 "wipes patient out the following day" tramadol AdvReac Severe unable to Verified 06/18/24 12:07 move/somnolence guaifenesin [From Mucinex] AdvReac Intermediate inability Verified 06/12/24 10:54 to walk, confusion opiate AdvReac Severe unable to Uncoded 06/12/24 10:54 tolerate any pain medication Medications Home Medications Medication Instructions Recorded Confirmed Last Taken carvedilol 12.5 mg tablet 12.5 mg PO BID #60 tabs 01/06/23 06/12/24 Unknown cyanocobalamin (vitamin B-12) 1,000 mcg PO QAM #30 tabs 01/06/23 06/12/24 Unkn own 1,000 mcg tablet (Vitamin B-12) fluticasone fur. 100 mcg-umeclid 1 inh inhalation QAM #60 ea 01/06/23 06/12/24 Unknown 62.5 mcg-vilant 25 mcg inhalat.powder (Trelegy Ellipta) levothyroxine 25 mcg tablet 25 mcg PO QAM #30 tabs 01/06/23 06/12/24 Unknown multivitamin 1 tab PO QAM #30 tabs 01/06/23 06/12/24 Unknown pantoprazole 40 mg tablet,delayed 40 mg PO QAM #30 tabs 01/06/23 06/12/24 Unknown release potassium chloride 10 mEq 10 meq PO QAM #30 caps 01/06/23 06/12/24 Unknown capsule,extended release torsemide 20 mg tablet 20 mg PO QAM #30 tabs 01/06/23 06/12/24 Unknown metformin 500 mg tablet 1,000 mg PO QAM 02/04/23 06/12/24 Unknown clopidogrel 75 mg tablet 75 mg PO QAM #30 tabs 02/06/23 06/12/24 Unknown magnesium oxide 400 mg (241.3 mg 400 mg PO BID #60 tabs 02/06/23 06/12/24 Unknown magnesium) tablet acetaminophen 500 mg tablet 500 - 1,000 mg PO QID PRN pain 06/12/24 06/12/24 Unknown (Tylenol Extra Strength) albuterol sulfate 1.25 mg/3 mL 1.25 mg inhalation Q4H PRN 06/12/24 06/12/24 Unknown solution for nebulization sob/wheezing albuterol sulfate 90 mcg/actuation 2 inh inhalation Q4H PRN 06/12/24 06/12/24 Unknown aerosol inhaler sob/wheezing cetirizine 5 mg tablet 5 mg PO QAM PRN seasonal allergies 06/12/24 06/12/24 Unknown docusate sodium 100 mg capsule 200 mg PO HS 06/12/24 06/12/24 Unknown fenofibrate nanocrystallized 48 mg 48 mg PO QPM 06/12/24 06/12/24 Unknown tablet linagliptin 5 mg tablet (Tradjenta) 5 mg PO QAM 06/12/24 06/12/24 Unknown losartan 50 mg tablet 50 mg PO QAM 06/12/24 06/12/24 Unknown melatonin 10 mg tablet 10 mg PO HS 06/12/24 06/12/24 Unknown metformin 500 mg tablet 500 mg PO QPM 06/12/24 06/12/24 Unknown nitroglycerin 0.4 mg sublingual 0.4 mg sublingual UD PRN Chest Pain 06/12/24 06/12/24 Unknown tablet (Nitrostat) ondansetron HCl 4 mg tablet 4 mg PO Q6H PRN nausea/vomitting 06/12/24 06/12/24 Unknown polyethylene glycol 3350 17 8.5 g PO QAM PRN ud - constipation 06/12/24 06/12/24 Unknown gram/dose oral powder (Miralax) pregabalin 100 mg capsule (Lyrica) 100 mg PO BID 06/12/24 06/12/24 Unknown rosuvastatin 40 mg tablet 40 mg PO HS 06/12/24 06/12/24 Unknown tamsulosin 0.4 mg capsule 0.4 mg PO HS 06/12/24 06/12/24 Unknown Past Medical History Medical History (Updated 06/18/24 @ 12:37 by Zenia Orellana PA-C) Amputated finger right hand, middle finger (~1960 work accident) Aortic stenosis s/p TAVR BPH (benign prostatic hyperplasia) Carotid artery disease s/p Left CEA (2011), right (2012) Chronic obstructive pulmonary disease stable with current treatment, acute flare up (last had Mid-May 2024) and started on albuterol nebulizers PRN. 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 pt can ambulate short distances with walker and x1-2 person assist depending on his tolerability. mild slurred/slow/weak speech at times. pt will sometimes cough when eating/drinking. has never aspirated on his food/drink Hx of myocardial infarction 1998 - treated w/ medication. cardiac cath done - no stents ([facility]) 2000 - CABG x4 vessels Hyperlipidemia Hypothyroidism On anticoagulant therapy plavix daily On home oxygen therapy 3lpm via n/c PRN throughout the day - rarely uses. ERINN (obstructive sleep apnea) CPAP with O2 3.5L HS PAD (peripheral artery disease) Renal cyst monitoring Rest pain of both lower extremities due to atherosclerosis Urinary incontinence Patient denies h/o seizures, blood clots/DVTs or blood transfusions. Exercise / Class Metabolic Activity IV < 2 Limit ADL/Bedbound (in wheelchair, ambulates short distances with mod-max assist of 1) Past Family History Family History Brother Diabetes Coronary heart disease, Onset Age: 60 Brother Diabetes Coronary heart disease, Onset Age: 50 Mother Diabetes Other No family history of adverse response to anesthesia Past Surgical History Surgical History (Updated 06/18/24 @ 11:32 by Zenia Orellana PA-C) H/O vascular surgery (05/26/22) Right Common Femoral Artery Endarterectomy,(Right) with bovine patch - Maurizio Montana MD sBilateral Iliac Stents(Bilateral) - Maurizio Montana MD History of anesthesia reaction Slow to wake History of cardiac cath Stent x1 (2006) History of cataract surgery bilateral History of CEA (carotid endarterectomy) Left - 2012 Right - 2013 History of cholecystectomy History of colonoscopy History of coronary artery bypass graft CABG x4 (2000) History of nasal septoplasty History of tonsillectomy S/P laminectomy with spinal fusion x2 (lumbar) S/P right rotator cuff repair S/P TAVR (transcatheter aortic valve replacement) AVR [facility] [place] after 2006 (pig valve?) S/P TURP S/P vascular surgery "kissing cousin stents placed" Dr Montana bilateral legs Status post uvulopalatopharyngoplasty remote history Past Anesthesia History Other (slow to wake) History of PONV No Hx of PONV and No Hx of Motion Sickness Social History Smoking Status: Former smoker tobacco type: cigarettes and smokeless tobacco Do You Dip or Chew Tobacco: No Smoking End Date: Hx Alcohol Use: Yes Alcohol type: beer alcohol intake frequency: holidays/special occasions only Hx Substance Use: No substance use type: does not use Review of Systems Patient denies chest pain, shortness of breath, dyspnea on exertion, fever, chills, cough, wheezing, or palpitations. Physical Exam Vital Signs Vitals BP 124/78 P 79 TEMP 97.4 SP02 94% on RA RESP 18 Physical Patient resting comfortably in wheelchair in no acute distress, alert and oriented, responding appropriately throughout visit Full cervical extension range of motion without pain TMD 3.5 finger breadths Mallampati Score 2 Dentition: edentulous, full upper and lower dentures Lungs: normal respiratory effort. Good air movement, clear throughout to auscultation, no adventitious breath sounds Cardiac: regular rate and rhythm, no murmurs noted Carotid arteries: negative bruit bilat Lab Results Anesthesia Preop Results Results Anesthesia Widget: WBC 4.46 K/ul (4.8-10.8) L 06/18/24 Hgb 11.7 g/dl (14.0-18.0) L 06/18/24 Hct 37.2 % (42.0-52.0) L 06/18/24 Plt 165 K/uL (130-400) 06/18/24 Na 138 mmol/L (136-145) 06/18/24 K 5.1 mmol/L (3.5-5.1) 06/18/24 Cl 100 mmol/L (98-107) 06/18/24 CO2 31 mmol/L (21-32) 06/18/24 BUN 24 mg/dl (6-23) H 06/18/24 Creat 1.12 mg/dl (0.6-1.4) 06/18/24 Glucose Level 178 mg/dl (70-99(Fasting)) H 06/18/24 PT 10.9 Seconds (9.0-12.0) 06/18/24 PTT 27 Seconds (21-31) 06/18/24 INR 1.0 (0.9-1.1) 06/18/24 HA1c 7.7 % (4.5-5.6) H 06/18/24 Blood Type O Negative 06/18/24 Antibody Screen NEGATIVE 06/18/24 Testing Electrocardiogram Date: 06/18/24 NSR, rate 75 bpm Left axis deviation T wave abnormality, consider anterior ischemia Chest X-Ray Date: 05/29/24 *1view* No acute cardiopulmonary disease. Echocardiogram Date: 12/30/22 EF 55-60% Moderate cLVH s/p KARLOS, normal gradients Grade I diastolic dysfunction Stress Test Date: 10/22/21 Myocardial perfusion imaging is normal MPHR 80% No LV regional wall motion abnormalities EF 61% Other Testing Neck CTA 06/07/24 Upon further review, note is made of severe stenosis of the distal right common carotid and proximal right internal carotid arteries due to extensive calcified and noncalcified plaque. There is 80-90% stenosis of the distal right common carotid artery and proximal right internal carotid artery. There is 60-70% stenosis of the proximal left internal carotid artery. These stenoses have progressed since CT of February 04, 2023. Findings discussed with Dr. Montana at time of dictation. Atherosclerotic plaque with calcification seen in bilateral carotid bulb extending into bilateral ICA causing 40-50% luminal narrowing Head and neck CTA 02/04/23 1. There is no acute hemorrhage, mass effect, or evidence of acute territorial ischemia by CT criteria. 2. 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 3. Unremarkable CT angiogram of the brain. 4. 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 5. There is less than 50% focal stenosis of the proximal left internal carotid artery. 6. There is moderate focal stenosis at the origin of both vertebral arteries. 7. 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 The remainder of the vessel is patent.
--- NOTE | 2024-07-04 07:35 | History & Physical Report ---
Date of Service July 04, 2024 Assessment & Plan (1) Stenosis of right internal carotid artery: Plan: Patient is admitted for a right tcar. I have discussed the risks options and benefits of the procedure with the patient. The patient understands the risks options and benefits and agrees to the procedure. History of Present Illness Chief Complaint: Right internal carotid artery stenosis Primary Care Provider: Jae Anthony MD Mr. Campo is a notedly male who presents to vascular surgery clinic today for multiple vascular issues. He is followed by Dr. Montana for his history of carotid stenosis, as well as a history of aortoiliac occlusive disease with history of bilateral common iliac artery stents, and peripheral arterial disease with a history of a right common femoral artery endarterectomy. Patient denies any significant changes in his health since being seen here 6 months ago. As you may remember, the patient has a history of right hemispheric hemorrhagic CVA in 2021, and was taking off of his aspirin and Plavix at that time. A few months later he was restarted on Plavix, but not aspirin. Resultant of his hemorrhagic CVA is left sided weakness, although not complete hemiplegia. He continues to be able to ambulate with a walker but only short distances. He has some use of his left arm, but poor control. He denies any new symptoms of CVA, including amaurosis, new left-sided weakness, facial droop, difficulty speaking or swallowing. Additionally he denies any symptoms of left leg claudication, rest pain, nonhealing wounds or ulcerations. His CT angiogram shows an 80 to 90% narrowing of the right internal carotid artery at the origin. Allergies Allergy/AdvReac Type Severity Reaction Status Date / Time empagliflozin Allergy Severe rash, skin Verified 06/12/24 10:54 [From Jardiance] irritation at the groin codeine AdvReac Severe Anxiety Verified 06/12/24 10:54 symptoms hydrocodone AdvReac Severe Anxiety, Verified 06/12/24 10:54 insomnia Iodinated Contrast Media AdvReac Severe drowsy, Verified 06/12/24 10:54 "wipes patient out the following day" tramadol AdvReac Severe unable to Verified 06/18/24 12:07 move/somnolence guaifenesin [From Mucinex] AdvReac Intermediate inability Verified 06/12/24 10:54 to walk, confusion opiate AdvReac Severe unable to Uncoded 06/12/24 10:54 tolerate any pain medication Home Medications Medication Instructions Recorded Confirmed Type carvedilol 12.5 mg tablet 12.5 mg PO BID #60 tabs 01/06/23 06/12/24 Rx cyanocobalamin (vitamin B-12) 1,000 mcg PO QAM #30 tabs 01/06/23 06/12/24 Rx 1,000 mcg tablet (Vitamin B-12) fluticasone fur. 100 mcg-umeclid 1 inh inhalation QAM #60 ea 01/06/23 06/12/24 Rx 62.5 mcg-vilant 25 mcg inhalat.powder (Trelegy Ellipta) levothyroxine 25 mcg tablet 25 mcg PO QAM #30 tabs 01/06/23 06/12/24 Rx multivitamin 1 tab PO QAM #30 tabs 01/06/23 06/12/24 Rx pantoprazole 40 mg tablet,delayed 40 mg PO QAM #30 tabs 01/06/23 06/12/24 Rx release potassium chloride 10 mEq 10 meq PO QAM #30 caps 01/06/23 06/12/24 Rx capsule,extended release torsemide 20 mg tablet 20 mg PO QAM #30 tabs 01/06/23 06/12/24 Rx metformin 500 mg tablet 1,000 mg PO QAM 02/04/23 06/12/24 History clopidogrel 75 mg tablet 75 mg PO QAM #30 tabs 02/06/23 06/12/24 Rx magnesium oxide 400 mg (241.3 mg 400 mg PO BID #60 tabs 02/06/23 06/12/24 Rx magnesium) tablet acetaminophen 500 mg tablet 500 - 1,000 mg PO QID PRN pain 06/12/24 06/12/24 His tory (Tylenol Extra Strength) albuterol sulfate 1.25 mg/3 mL 1.25 mg inhalation Q4H PRN 06/12/24 06/12/24 History solution for nebulization sob/wheezing albuterol sulfate 90 mcg/actuation 2 inh inhalation Q4H PRN 06/12/24 06/12/24 History aerosol inhaler sob/wheezing cetirizine 5 mg tablet 5 mg PO QAM PRN seasonal allergies 06/12/24 06/12/24 History docusate sodium 100 mg capsule 200 mg PO HS 06/12/24 06/12/24 History fenofibrate nanocrystallized 48 mg 48 mg PO QPM 06/12/24 06/12/24 History tablet linagliptin 5 mg tablet (Tradjenta) 5 mg PO QAM 06/12/24 06/12/24 History losartan 50 mg tablet 50 mg PO QAM 06/12/24 06/12/24 History melatonin 10 mg tablet 10 mg PO HS 06/12/24 06/12/24 History metformin 500 mg tablet 500 mg PO QPM 06/12/24 06/12/24 History nitroglycerin 0.4 mg sublingual 0.4 mg sublingual UD PRN Chest Pain 06/12/24 06/12/24 History tablet (Nitrostat) ondansetron HCl 4 mg tablet 4 mg PO Q6H PRN nausea/vomitting 06/12/24 06/12/24 History polyethylene glycol 3350 17 8.5 g PO QAM PRN ud - constipation 06/12/24 06/12/24 History gram/dose oral powder (Miralax) pregabalin 100 mg capsule (Lyrica) 100 mg PO BID 06/12/24 06/12/24 History rosuvastatin 40 mg tablet 40 mg PO HS 06/12/24 06/12/24 History tamsulosin 0.4 mg capsule 0.4 mg PO HS 06/12/24 06/12/24 History Past Med/Surg History Problem List (Updated 07/04/24 @ 07:34 by Maurizio Montana MD) 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 Diabetes mellitus, type II Peripheral artery disease COPD (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 obstructive pulmonary disease) 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 pt can ambulate short distances with walker and x1-2 person assist depending on his tolerability. mild slurred/slow/weak speech at times. pt will sometimes cough when eating/drinking. has never aspirated on his food/drink Hx of myocardial infarction 1998 - treated w/ medication. cardiac cath done - no stents ([facility]) 2000 - CABG x4 vessels Congestive heart failure chronic diaystolic heart failure On home oxygen therapy 3lpm via n/c PRN throughout the day - rarely uses. Urinary incontinence Renal cyst monitoring PAD (peripheral artery disease) On anticoagulant therapy plavix daily ERINN (obstructive sleep apnea) CPAP with O2 3.5L HS Hypothyroidism GERD (gastroesophageal reflux disease) "belches often" Hyperlipidemia Diabetes mellitus, type 2 Chronic obstructive pulmonary disease stable with current treatment, acute flare up (last had Mid-May 2024) and started on albuterol nebulizers PRN. BPH (benign prostatic hyperplasia) Amputated finger right hand, middle finger (~1960 work accident) Carotid artery disease s/p Left CEA (2011), right (2012) Rest pain of both lower extremities due to atherosclerosis Aortic stenosis s/p TAVR Surgical History History of nasal septoplasty History of tonsillectomy Status post uvulopalatopharyngoplasty remote history S/P vascular surgery "kissing cousin stents placed" Dr Montana bilateral legs S/P TURP S/P laminectomy with spinal fusion x2 (lumbar) History of cataract surgery bilateral S/P TAVR (transcatheter aortic valve replacement) [place] [facility] [place] S/P right rotator cuff repair History of CEA (carotid endarterectomy) Left - 2012 Right - 2013 H/O vascular surgery (05/26/22) Right Common Femoral Artery Endarterectomy,(Right) with bovine patch - Maurizio Montana MD sBilateral Iliac Stents(Bilateral) - Maurizio Montana MD History of anesthesia reaction Slow to wake History of cholecystectomy History of colonoscopy History of cardiac cath Stent x1 (2006) History of coronary artery bypass graft CABG x4 (2000) Family History Brother Diabetes Coronary heart disease, Onset Age: 60 Brother Diabetes Coronary heart disease, Onset Age: 50 Mother Diabetes Other No family history of adverse response to anesthesia Social History Smoking Status: Former smoker Tobacco Type: Cigarettes packs per day: 4; Smoking End Date: ; Second Hand Exposure: No; Do You Dip or Chew Tobacco: No; Tobacco Cessation Education Requested by Patient: No Hx Alcohol Use: Yes Alcohol type: beer Hx Substance Use: No Preferred Language: Cuban Communication Ability: Effective Bag Filler Required: No Beliefs That Will Affect Care: None marital status: Current Living Situation: Spouse and Family current occupational status: retired Other Information That Helps Us Care for You: No Assistive Devices: Bedside Commode, CPAP, Denture - Upper, Denture - Lower, Glasses, Hearing Aid - Bilateral, Hospital Bed, Nebulizer, Oxygen - at Night, Walker and Wheelchair Review of Systems All systems reviewed & are unremarkable except as noted in HPI & below Physical Exam Physical Exam: Constitutional: In general patient is an obese mildly chronic ill-appearing elderly male in no distress. He is alert and oriented. 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 His left leg demonstrates 3 out of 5 strength. His right carotid does demonstrate a bruit. His heart is regular, lungs are decreased throughout but clear. His abdomen is protuberant due to body habitus and is somewhat firm but is nontender. He has normoactive bowel sounds in all 4 quadrants. Brachial and radial pulses are +3 bilaterally. Right femoral pulses +3, left femoral pulse is nonpalpable. Right DP and PT pulses are +1. Left DP and PT pulses are nonpalpable. Both feet are warm and pink with brisk capillary refill. There were no ulcerations or signs of ischemia.
[2024-07-04] MEDS: SODIUM CHLORIDE 0.9% 1,000 ML IV SCH (08:53)
[2024-07-04] MEDS: LACTATED RINGER'S 1,000 ML IV SCH (08:53)
[2024-07-04] MEDS ORDERED: PROPOFOL IV EMULSION 10 MG/ML 20 ML VIAL IV ONE (09:58)
[2024-07-04] MEDS ORDERED: ROCURONIUM BROMIDE 10 MG/ML 5 ML VIAL IV ONE (09:58)
[2024-07-04] MEDS ORDERED: LIDOCAINE 2% 2 ML VIAL/AMP(20MG/ML) INFIL ONE (09:58)
[2024-07-04] MEDS ORDERED: fentaNYL citrate PF 100 MCG/2 ML VIAL IV PRN (10:01)
[2024-07-04] MEDS ORDERED: ONDANSETRON INJ 2 MG/ML 2 ML VIAL IV PRN ×2 (10:01→14:42)
[2024-07-04] MEDS ORDERED: ATROPINE SULFATE 0.1 MG/ML 10ML SYR IV PRN (10:01)
[2024-07-04] MEDS ORDERED: NALOXONE HCL 0.4 MG/1 ML VIAL/CARP IV PRN (10:01)
[2024-07-04] MEDS ORDERED: ePHEDrine sulfate 50 MG/ML AMP IV PRN (10:01)
[2024-07-04] MEDS ORDERED: PROMETHAZINE HCL 6.25 MG in SODIUM CHLORIDE 0.9% 50 ML IV PRN (10:01)
--- NOTE | 2024-07-04 10:16 | History & Physical Bridge Note ---
Date of Service July 04, 2024 History & Physical Bridge Note I have examined the patient, reviewed the History & Physical and in the interval since the performance of the History & Physical I have noted the following changes of clinical significance: no changes noted
[2024-07-04] MEDS ORDERED: fentaNYL citrate PF 100 MCG/2 ML VIAL ONE (10:22)
[2024-07-04] MEDS ORDERED: MIDAZOLAM HCL 1 MG/ML 2ML VIAL ONE (10:22)
[2024-07-04] MEDS ORDERED: CISATRACURIUM BESYLATE IV SOLN 2 MG/ML 10 ML VIAL IV ONE (10:23)
[2024-07-04] MEDS ORDERED: NEOSTIGMINE METHYLSULFATE 1 MG/ML 10ML VIAL ONE ×2 (10:28→12:57)
[2024-07-04] MEDS ORDERED: PHENYLEPHRINE HCL 25 MG/250 ML NSS IV ONE (10:30)
[2024-07-04] MEDS ORDERED: HEPARIN SOD (PORCINE) 1000 UNIT/ML ONE (10:34)
[2024-07-04] MEDS: ceFAZolin 2000MG 2,000 MG/15 ML SYR IV SCH ×2 (10:43→18:18)
[2024-07-04] MEDS ORDERED: GLYCOPYRROLATE 0.2 MG/ML VIAL ONE ×4 (11:03→12:57)
[2024-07-04] MEDS ORDERED: ONDANSETRON INJ 2 MG/ML 2 ML VIAL ONE ×2 (11:45)
[2024-07-04] MEDS ORDERED: DEXAMETHASONE SOD INJ 4 MG/ML VIAL ONE (11:45)
[2024-07-04] MEDS ORDERED: ePHEDrine sulfate 50 MG/5 ML SYR ONE ×2 (12:03)
[2024-07-04] MEDS ORDERED: PROTAMINE SULFATE 10 MG/ML 5 ML VIAL IV ONE (12:46)
[2024-07-04] MEDS: HEPARIN (PORCINE) 1000 UNIT/ML 10 ML (CATH LAB USE ONLY) ONE (12:53)
[2024-07-04] MEDS: THROMBIN FOR SOLN 20000 UNIT KIT ONE (12:53)
[2024-07-04] MEDS: GELATIN SPONGE SZ 100 ONE (12:53)
[2024-07-04] MEDS: ceFAZolin 330 MG/ML 1 GM VIAL ONE (12:54)
[2024-07-04] MEDS: BUPIVACAINE/EPINEPHRINE 0.5% MPF 1:200,000 30 ML VIAL ONE (13:00)
[2024-07-04] MEDS: LIDOCAINE 1% LOCAL 20 ML VIAL ONE (13:02)
--- NOTE | 2024-07-04 13:05 | Post Operative Brief Note ---
Immediate Post Op Note Date of Surgery July 04, 2024 Pre & Post Diagnosis Operation Date: 07/04/24 10:00 Pre-Op Diagnosis: Stenosis of right internal carotid artery Post-Op Diagnosis: Stenosis of right internal carotid artery I identified the patient and participated in the time-out.: Yes Procedure Operation Date: 07/04/24 10:00 Actual Procedures p Right Transcarotid Artery Revascularization, Ultrasound of Left Common Femoral Vein(Right) - Maurizio Montana MD Surgeon Maurizio Montana MD Refining Equipment Operator DO Jonnathan Estimated Blood Loss 20 Findings Consistent with Post-Op Diagnosis Anesthesia Type General Complications none Disposition Accompanied Patient To Recovery: No Disposition: Recovery Room
[2024-07-04] MEDS: VISIPAQUE IV ONE (13:06)
--- NOTE | 2024-07-04 13:20 | Operative Report ---
Post Operative Report Pre & Post Diagnosis Operation Date: 07/04/24 10:00 Pre-Op Diagnosis: Stenosis of right internal carotid artery Post-Op Diagnosis: Stenosis of right internal carotid artery I identified the patient and participated in the time-out.: Yes Procedure Operation Date: 07/04/24 10:00 Actual Procedures p Right Transcarotid Artery Revascularization, Ultrasound of Left Common Femoral Vein(Right) - Maurizio Montana MD Surgeon Rubén Alignment Specialist Jose Estimated Blood Loss 20 Findings Consistent with Post-Op Diagnosis R ICA stenosis significantly improved following R stenting and angioplasty. Common carotid puncture site hemostatic on closure. Fluids Per anesthesia report Specimens No specimen Drains No drain Anesthesia Type General Complications None apparent on conclusion. Indications Asymptomatic right carotid stenosis. Description of Procedure The patient was brought to the operating room, where lines were placed and general anesthesia was accomplished by anesthesia team. A shoulder roll was placed and the neck was rotated towards the left side of the patient. The right neck and left groin were prepped and patient was draped in the usual sterile fashion. A timeout was performed identifying the correct patient by name, procedure, and location of procedure and all were in agreement. A 4cm transverse incision was made between the sternal and clavicular heads of the sternocleidomastoid muscle. The muscle heads were retracted to each side and the carotid sheath was identified. Using blunt dissection, the carotid sheath was opened and 3cm of common carotid artery (CCA) were isolated. Umbilical tape was placed around the proximal CCA under direct visualization. A 5-0 prolene U- stitch was pre-placed in the anterior wall of the CCA to facilitate hemostasis after removal of the arterial sheath at completion of the procedure. The patient was given 6,000 units of IV heparin. The right common femoral vein was then attempted to be accessed percutaneously, however the blood return did appear to be arterial. The access needle was withdrawn and pressure was held on the right groin. Following this, the contralateral (left) common femoral vein was accessed under ultrasound guidance, using a micropuncture needle and a wire and sheath were placed using modified Seldinger technique. The venous return sheath was advanced into the common femoral vein over the 0.035" wire. Blood was aspirated from the flow line and the sheath was flushed with heparinized saline.The sheath was secured to the patient's skin with a 2-0 silk stitch to maintain position in the vessel. ACT was confirmed to be above 250 seconds prior to arterial access. A 4-[place] Lucian non-stiffened micropuncture set was used, puncturing the artery with a 21G needle through the pre-placed U-stitch while holding gentle traction on the umbilical tape to stabilize the CCA within the incision. The micropuncture wire was advanced 3-4cm into the CCA and the 21G needle removed. The micropuncture sheath was advanced 3cm into the CCA and the wire and dilator were removed. A cerebral angiogram was obtained after ensuring there were no air bubbles in the system. The J-tipped guidewire was inserted and stopped short of the bifurcation. After micropuncture sheath removal, the transcarotid arterial s elliot was advanced to the 3rd marker and the 0.035" wire and dilator were removed. Arterial sheath position was assessed under fluoroscopy. The arterial sheath was sutured to the patient at two sites. The Flow Controller was connected to the transcarotid arterial sheath, prepared by passively allowing arterial blood to backfill the line and then it was connected to the venous return sheath. The CCA was clamped proximally with a Christopher tourniquet to ensure active flow reversal. Heparinized saline was delivered into the venous flow line to confirm adequate flow reversal. A TCAR timeout was performed, heart rate was >70bpm and systolic BP was >140mmHg. Patient had been pretreated with glycopyrrolate and atropine was available. The lesion was crossed with an 0.014" guidewire and pre-dilation balloon angioplasty was performed with a 5.5mm [employer] rapid exchange balloon to 12 atmospheres for about 30 seconds. A tapered 10-8mm ENROUTE transcarotid stent was placed, sized to the right CCA. A completion angiogram was performed showing residual stenosis proximal to the stent position. A second 10mm was placed with proximal overlap and completion angiography showed stent position with good wall apposition. Post-dilation balloon angioplasty was performed with a 6x35 balloon. At TCAR case completion, antegrade flow was restored by releasing the tourniquet on the CCA and closing the stopcocks to the flow lines. The total clamp time was 19 minutes. The transcarotid arterial sheath was removed and the pre-placed suture was tied. 25mg of protamine were given. The venous return sheath was removed and hemostasis achieved with manual compression. The neck incision was irrigated with antibiotic solution and was hemostatic before closure. The platysma was approximated with 3-0 Vicryl running suture and the skin was closed with 4-0 running Vicryl suture and covered with Dermabond. The patient tolerated the procedure well and was extubated in the operating room. He was moving all four extremities to command prior to transfer to the recovery room. All counts were correct at the end of the procedure. Fluoroscopy time was 4.9minutes, radiation dose was 43mGy and 16cc of contrast were used. Dr. Montana was present and participated in all critical parts of the procedure. I attest to the content of the Intraoperative Record and any orders documented therein. Any exceptions are noted below.
--- NOTE | 2024-07-04 14:15 | Anesthesiology Progress Note ---
Date of Service July 04, 2024 Anesthesia Post Procedure Vital Signs Vital Signs: Temp Pulse Pulse Resp BP BP Pulse Ox 07/04/24 14:10 36.4 C L 63 18 155/60 H 140/63 95 07/04/24 14:00 63 20 146/56 H 122/67 94 07/04/24 13:50 65 13 152/59 H 145/63 H 95 07/04/24 13:40 69 17 141/55 H 143/61 H 95 07/04/24 13:30 36.7 C 74 21 113/65 94 07/04/24 08:25 36.7 C 70 18 156/71 H 94 O2 Del Method O2 Flow Rate 07/04/24 14:10 Nasal Cannula 3 07/04/24 14:00 Nasal Cannula 3 07/04/24 13:50 Oxymask 9 07/04/24 13:40 Oxymask 9 07/04/24 13:30 Oxymask 9 07/04/24 08:25 Room Air Transfer of Care Handoff Completed per policy Notes Mental Status: alert / awake / arousable Patient Amnestic to Procedure: Yes Nausea / Vomiting: adequately controlled Pain: adequately controlled Airway Patency, RR, SpO2: stable & adequate BP & HR: stable & adequate Hydration State: stable & adequate Anesthetic Complications: no major complications apparent Notes: Pt w/ prior CVA and left resultant hemiplegia
[2024-07-04] MEDS ORDERED: POLYETHYLENE (MIRALAX) 17 GM PACK PO PRN (14:42)
[2024-07-04] MEDS ORDERED: PHARMACY GLYCEMIC MGMT CONSULT PRN (14:42)
[2024-07-04] MEDS ORDERED: oxyCODONE/ACETAMINOPHEN 5mg/325mg TAB PO PRN (14:42)
[2024-07-04] MEDS ORDERED: PHENYLEPHRINE/NSS 25 MG/250 ML BAG IV PRN (14:42)
[2024-07-04] MEDS ORDERED: NITROGLYCERIN SL 0.4 MG/TAB TAB SL PRN (14:42)
[2024-07-04] MEDS ORDERED: STAT IV Infusion **Titration per Protocol STA (14:42)
[2024-07-04] MEDS ORDERED: ALBUTEROL HFA 8 GM INHALER INH PRN (14:42)
[2024-07-04] MEDS ORDERED: ALBUTEROL 0.083% NEBU SOLN 3 ML VIAL INH PRN (14:58)
[2024-07-04] MEDS ORDERED: CETIRIZINE HCL 10 MG TABLET PO PRN (14:59)
[2024-07-04] MEDS ORDERED: ONDANSETRON 4 MG OD TAB PO PRN (15:02)
[2024-07-04] MEDS: SODIUM CHLORIDE 0.9% 500 ML IV SCH (15:04)
[2024-07-04] MEDS ORDERED: GLUCOSE 10 TAB/TUBE PO PRN (15:45)
[2024-07-04] MEDS ORDERED: GLUCOSE 40% GEL 15 GM TUBE PO PRN (15:45)
[2024-07-04] MEDS ORDERED: CARBOHYDRATES FOR HYPOGLYCEMIA PO PRN (15:45)
[2024-07-04] MEDS ORDERED: DEXTROSE 50% 50 ML SYRINGE IV PRN (15:45)
[2024-07-04] MEDS ORDERED: GLUCAGON FOR INJ 1 MG VIAL SQ PRN (15:45)
--- NOTE | 2024-07-04 16:41 | Critical Care Consultation ---
Date of Consultation July 04, 2024 Assessment & Plan (1) Status post carotid surgery: (2) Stenosis of right internal carotid artery: (3) Diabetes mellitus, type II: (4) COPD (chronic obstructive pulmonary disease): (5) Obesity: (6) Hypothyroidism: (7) HTN (hypertension): (8) ERINN (obstructive sleep apnea): (9) Dyslipidemia: (10) CAD (coronary artery disease): Plan Reason Critically Ill: 88-year-old male with significant history of hypertension, dyslipidemia, coronary artery disease, peripheral arterial disease, obesity, and obstructive sleep apnea who presents to the ICU post RIGHT sided TCAR procedure. Patient to be monitored closely post vascular interventi on. 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 * Neuro checks per unit protocol status post carotid procedure. CARDIAC/VASCULAR - * s/p RIGHT-Sided TCAR: * Minimal EBL. * Postoperative sites clean, dry, intact. * Monitor for bleeding or underlying hematoma post vascular invention. * Defer to vascular surgery for continued management. * Hypertension, dyslipidemia: * Restart home antihypertensive medications when clinically appropriate. * Monitor on telemetry. RESPIRATORY - * History of COPD: * Continue with home inhalers at this time. * Chronic hypoxemia: * Patient and describe intermittent hypoxemia for which he does have supplemental oxygen to use as needed. Will likely require in the postoperative setting as well. * ERINN: * Home CPAP with 3.5 L bled in. GI/NUTRITION - * GERD: * Prophylaxis: Home Protonix RENAL/LYTES - * No reported h/y kidney disease. * IVF: Down to off as BP tolerates. - * Swift in place - Strict I&Os. ENDO - * DMII: * BSGs per unit protocol. ISS --> gtt per unit policy. * Hypothyroidism: * Continue with home Levothyroxine dosing. HEME - * Monitor for s/s bleeding s/p vascular intervention. ID - * Prophylactic antibiotic coverage per vascular surgery. LINES/IV ACCESS - * PIVs x2 * LEFT Brachial arterial line. DVT PROPHYLAXIS - * Per surgery * SCDs Thank you for allowing us to participate in the care of this patient. Please refer to my attending physician's documentation for any further recommendations. Supervising Physician Co-Signing Physician Notes Patient separately seen and examined. Agree with the above aside for any additions/exceptions noted: Patient doing well postoperatively. Continue antihypertensive regimen, antiplatelets and pain control per vascular surgery. ICU services available should the need arise. Thank you for the consult. Will continue to monitor while he remains under ICU status. History of Present Illness Reason for Consultation: post right tcar Requesting Physician: Dr. Montana Attending Physician: Maurizio Montana MD History of Present Illness Patient is an 88-year-old male with a significant past medical history of coronary disease, BPH, dyslipidemia, ERINN, nocturnal hypoxemia, hypertension, hypothyroidism, COPD, obesity, diabetes, and peripheral arterial disease who presents to the ICU status post RIGHT sided TCAR procedure. Patient had been following with vascular surgery as he had undergone prior bilateral common iliac artery stent placement. Unfortunately, the patient had a hemorrhagic CVA in 2021. He was seen again in December 2022 with a hemorrhagic CVA. Patient continue to follow with vascular surgery and was found to have 80 to 90% narrowing of the RIGHT carotid artery and felt to necessitate need for TCAR procedure. Patient underwent uneventful TCAR with an EBL of 20 mL. Postoperatively, the patient has been feeling well. He denies headaches, dizziness, lightheadedness, blurry vision, change in strength, difficulty swallowing, or trouble breathing. Allergies Allergy/AdvReac Type Severity Reaction Status Date / Time empagliflozin Allergy Severe rash, skin Verified 06/12/24 10:54 [From Jardiance] irritation at the groin codeine AdvReac Severe Anxiety Verified 06/12/24 10:54 symptoms hydrocodone AdvReac Severe Anxiety, Verified 06/12/24 10:54 insomnia Iodinated Contrast Media AdvReac Severe drowsy, Verified 06/12/24 10:54 "wipes patient out the following day" tramadol AdvReac Severe unable to Verified 06/18/24 12:07 move/somnolence guaifenesin [From Mucinex] AdvReac Intermediate inability Verified 06/12/24 10:54 to walk, confusion opiate AdvReac Severe unable to Uncoded 06/12/24 10:54 tolerate any pain medication Home Medications Medication Instructions Recorded Confirmed Type carvedilol 12.5 mg tablet 12.5 mg PO BID #60 tabs 01/06/23 07/04/24 Rx cyanocobalamin (vitamin B-12) 1,000 mcg PO QAM #30 tabs 01/06/23 07/04/24 Rx 1,000 mcg tablet (Vitamin B-12) fluticasone fur. 100 mcg-umeclid 1 inh inhalation QAM #60 ea 01/06/23 07/04/24 Rx 62.5 mcg-vilant 25 mcg inhalat.powder (Trelegy Ellipta) levothyroxine 25 mcg tablet 25 mcg PO QAM #30 tabs 01/06/23 07/04/24 Rx multivitamin 1 tab PO QAM #30 tabs 01/06/23 07/04/24 Rx pantoprazole 40 mg tablet,delayed 40 mg PO QAM #30 tabs 01/06/23 07/04/24 Rx release potassium chloride 10 mEq 10 meq PO QAM #30 caps 01/06/23 07/04/24 Rx capsule,extended release torsemide 20 mg tablet 20 mg PO QAM #30 tabs 01/06/23 07/04/24 Rx metformin 500 mg tablet 1,000 mg PO QAM 02/04/23 07/04/24 History clopidogrel 75 mg tablet 75 mg PO QAM #30 tabs 02/06/23 07/04/24 Rx magnesium oxide 400 mg (241.3 mg 400 mg PO BID #60 tabs 02/06/23 07/04/24 Rx magnesium) tablet acetaminophen 500 mg tablet 500 - 1,000 mg PO QID PRN pain 06/12/24 07/04/24 History (Tylenol Extra Strength) albuterol sulfate 1.25 mg/3 mL 1.25 mg inhalation Q4H PRN 06/12/24 07/04/24 History solution for nebulization sob/wheezing albuterol sulfate 90 mcg/actuation 2 inh inhalation Q4H PRN 06/12/24 07/04/24 History aerosol inhaler sob/wheezing cetirizine 5 mg tablet 5 mg PO QAM PRN seasonal allergies 06/12/24 07/04/24 History docusate sodium 100 mg capsule 200 mg PO HS 06/12/24 07/04/24 History fenofibrate nanocrystallized 48 mg 48 mg PO QPM 06/12/24 07/04/24 History tablet linagliptin 5 mg tablet (Tradjenta) 5 mg PO QAM 06/12/24 07/04/24 History losartan 50 mg tablet 50 mg PO QAM 06/12/24 07/04/24 History melatonin 10 mg tablet 10 mg PO HS 06/12/24 07/04/24 History metformin 500 mg tablet 500 mg PO QPM 06/12/24 07/04/24 History nitroglycerin 0.4 mg sublingual 0.4 mg sublingual UD PRN Chest Pain 06/12/24 07/04/24 History tablet (Nitrostat) ondansetron HCl 4 mg tablet 4 mg PO Q6H PRN nausea/vomitting 06/12/24 07/04/24 History polyethylene glycol 3350 17 8.5 g PO QAM PRN ud - constipation 06/12/24 07/04/24 History gram/dose oral powder (Miralax) pregabalin 100 mg capsule (Lyrica) 100 mg PO BID 06/12/24 07/04/24 History rosuvastatin 40 mg tablet 40 mg PO HS 06/12/24 07/04/24 History tamsulosin 0.4 mg capsule 0.4 mg PO HS 06/12/24 07/04/24 History aspirin 81 mg tablet,delayed 81 mg PO DAILY 07/04/24 07/04/24 History release ticagrelor 90 mg tablet (Brilinta) 90 mg PO BID 07/04/24 07/04/24 History Patient History Medical History 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 pt can ambulate short distances with walker and x1-2 person assist depending on his tolerability. mild slurred/slow/weak speech at times. pt will sometimes cough when eating/drinking. has never aspirated on his food/drink Hx of myocardial infarction 1998 - treated w/ medication. cardiac cath done - no stents ([facility]) 2000 - CABG x4 vessels Congestive heart failure chronic diaystolic heart failure On home oxygen therapy 3lpm via n/c PRN throughout the day - rarely uses. Urinary incontinence Renal cyst monitoring PAD (peripheral artery disease) On anticoagulant therapy plavix daily ERINN (obstructive sleep apnea) CPAP with O2 3.5L HS Hypothyroidism GERD (gastroesophageal reflux disease) "belches often" Hyperlipidemia Diabetes mellitus, type 2 Chronic obstructive pulmonary disease stable with current treatment, acute flare up (last had Mid-May 2024) and started on albuterol nebulizers PRN. BPH (benign prostatic hyperplasia) Amputated finger right hand, middle finger (~1960 work accident) Carotid artery disease s/p Left CEA (2011), right (2012) Rest pain of both lower extremities due to atherosclerosis Aortic stenosis s/p TAVR Surgical History History of nasal septoplasty History of tonsillectomy Status post uvulopalatopharyngoplasty remote history S/P vascular surgery "kissing cousin stents placed" Dr Montana bilateral legs S/P TURP S/P laminectomy with spinal fusion x2 (lumbar) History of cataract surgery bilateral S/P TAVR (transcatheter aortic valve replacement) [place] [facility] [place] S/P right rotator cuff repair History of CEA (carotid endarterectomy) Left - 2011 Right - 2013 H/O vascular surgery (05/26/22) Right Common Femoral Artery Endarterectomy,(Right) with bovine patch - Maurizio Montana MD sBilateral Iliac Stents(Bilateral) - Maurizio Montana MD History of anesthesia reaction Slow to wake History of cholecystectomy History of colonoscopy History of cardiac cath Stent x1 (2006) History of coronary artery bypass graft CABG x4 (2000) Family History Brother Diabetes Coronary heart disease, Onset Age: 60 Brother Diabetes Coronary heart disease, Onset Age: 50 Mother Diabetes Other No family history of adverse response to anesthesia Social History Smoking Status: Former smoker Tobacco Type: Cigarettes packs per day: 4; Smoking End Date: ; Second Hand Exposure: No; Do You Dip or Chew Tobacco: No; Tobacco Cessation Education Requested by Patient: No Hx Alcohol Use: Yes Alcohol type: beer Hx Substance Use: No Preferred Language: Czech Communication Ability: Effective Clark Driver Required: No Beliefs That Will Affect Care: None marital status: Current Living Situation: Spouse and Family current occupational status: retired Other Information That Helps Us Care for You: No Assistive Devices: Bedside Commode, CPAP, Denture - Upper, Denture - Lower, Glasses, Hearing Aid - Bilateral, Hospital Bed, Nebulizer, Oxygen - at Night, Walker and Wheelchair Review of Systems Review of Systems: A complete 10 point review of systems was reviewed with the patient with pertinent positives and negatives as per history of present illness. All else were negative. Physical Exam Physical Exam: VITAL SIGNS - Vital signs and nursing notes were reviewed. GENERAL - 88-year-old male appearing his stated age who is in no acute distress. Communicates well with provider and answers questions appropriately. SKIN - Surgical incision site noted at the RIGHT sided neck base clean, dry, and intact. LEFT-sided groin dressing clean, dry, and intact. HEAD - NC/AT. EYES - PERRL with EOMI bilaterally. Sclera anicteric. EARS - No deformities of external structures noted on gross examination bilaterally. NOSE - Midline and without cyanosis. MOUTH/OROPHARYNX - Without perioral cyanosis. NECK - RIGHT-Sided surgical site clean, dry, and intact without underlying edema. LUNGS - Chest wall symmetric without accessory muscle use, intercostals retractions, or central cyanosis. Normal vesicular breath sounds CTA B/L. No wheezes, rales, or rhonchi appreciated. CARDIAC - RRR with S1/S2. No murmur, rubs, or gallops appreciated. ABDOMEN - Abdominal contour obese without pulsations or visible masses. BS normoactive all four quadrants. No tenderness, palpable masses, hepatosplenomegaly, or ascites noted. EXTREMITIES - No clubbing or peripheral cyanosis. No pretibial edema present. +3/5 radial pulses palpated throughout. NEUROLOGIC - Cranial nerves II through XII grossly intact. PSYCH - A&Ox3 and cooperates fully with examiner. Pt is very pleasant and interacts well with examiner. Results & Data Results & Data Vital Signs (Past 12 Hours) Vital Signs Temp Pulse Pulse Pulse Resp BP BP 07/04/24 16:03 69 16 07/04/24 16:00 156/74 H 07/04/24 15:48 72 16 07/04/24 15:46 164/66 H 07/04/24 15:46 164/66 H 07/04/24 15:45 75 14 07/04/24 15:42 37.1 C 07/04/24 15:33 71 19 07/04/24 15:30 133/66 12/04/24 15:30 133/66 07/04/24 15:30 133/66 07/04/24 15:24 68 15 07/04/24 15:15 127/64 07/04/24 15:15 66 17 07/04/24 15:03 66 14 07/04/24 15:00 127/73 07/04/24 15:00 127/73 07/04/24 14:57 71 21 07/04/24 14:39 66 15 07/04/24 14:37 07/04/24 14:37 36.8 C 62 20 156/65 H 07/04/24 14:35 151/65 H 07/04/24 14:20 63 14 154/60 H 07/04/24 14:10 36.4 C L 63 18 155/60 H 07/04/24 14:00 63 20 146/56 H 07/04/24 13:50 65 13 152/59 H 07/04/24 13:40 69 17 141/55 H 07/04/24 13:30 36.7 C 74 21 07/04/24 08:25 36.7 C 70 18 BP Pulse Ox O2 Del Method O2 Flow Rate 07/04/24 16:03 96 07/04/24 16:00 07/04/24 15:48 95 07/04/24 15:46 07/04/24 15:46 07/04/24 15:45 94 07/04/24 15:42 07/04/24 15:33 95 07/04/24 15:30 07/04/24 15:30 07/04/24 15:30 07/04/24 15:24 94 07/04/24 15:15 07/04/24 15:15 95 07/04/24 15:03 95 07/04/24 15:00 07/04/24 15:00 07/04/24 14:57 94 07/04/24 14:39 94 07/04/24 14:37 Nasal Cannula 2 07/04/24 14:37 156/65 H 96 Nasal Cannula 2 07/04/24 14:35 07/04/24 14:20 145/59 H 95 Nasal Cannula 3 07/04/24 14:10 140/63 95 Nasal Cannula 3 07/04/24 14:00 122/67 94 Nasal Cannula 3 07/04/24 13:50 145/63 H 95 Oxymask 9 07/04/24 13:40 143/61 H 95 Oxymask 9 07/04/24 13:30 113/65 94 Oxymask 9 07/04/24 08:25 156/71 H 94 Room Air Coding Level of Care Code 78917 IN/OBS CONSULT LVL 3,45M Diagnoses Status post carotid surgery Z98.890 Stenosis of right internal carotid artery I65.21 Diabetes mellitus, type II E11.9 COPD (chronic obstructive pulmonary disease) J44.9 Obesity E66.9 Hypothyroidism E03.9 HTN (hypertension) I10 ERINN (obstructive sleep apnea) G47.33 Dyslipidemia E78.5 CAD (coronary artery disease) I25.10
[2024-07-04] MEDS: LANTUS PER UNIT CHARGE SC ONE (17:00)
[2024-07-04] MEDS: INSULIN ASPART PER UNIT CHARGE SC SCH (17:00)
[2024-07-04] MEDS ORDERED: metFORMIN HCL 500 MG TAB PO SCH (21:00)
[2024-07-04] MEDS: PREGABALIN 100 MG CAP PO SCH (21:14)
[2024-07-04] MEDS: MELATONIN 3 MG TAB PO SCH (21:15)
[2024-07-04] MEDS: FENOFIBRATE NANOCRYSTALLIZED 48 MG TABLET PO SCH (21:15)
[2024-07-04] MEDS: ROSUVASTATIN CALCIUM 20 MG TAB PO SCH (21:16)
[2024-07-04] MEDS: carvediloL 12.5 MG TAB PO SCH (21:16)
[2024-07-04] MEDS: MAGNESIUM OXIDE 400 MG TAB PO SCH (21:16)
[2024-07-04] MEDS: TAMSULOSIN HCL 0.4 MG CAP PO SCH (21:16)
[2024-07-04] MEDS: TICAGRELOR 90 MG TAB PO SCH (21:17)
[2024-07-04] MEDS: DOCUSATE SODIUM 100 MG CAP PO SCH (21:18)
[2024-07-04 23:18] VITALS: TEMP 98.2
[2024-07-05] MEDS: INSULIN ASPART PER UNIT CHARGE SC ONE (04:51)
[2024-07-05 05:09] VITALS: PULSE 70
[2024-07-05] MEDS: LEVOTHYROXINE SODIUM 25 MCG TABLET PO SCH (06:46)
[2024-07-05] MEDS ORDERED: ACETAMINOPHEN 325 MG TAB PO PRN (07:03)
[2024-07-05 07:11] VITALS: RESP 23; O2SAT 92
[2024-07-05] MEDS: LOSARTAN POTASSIUM 50 MG TAB PO SCH (08:20)
[2024-07-05] MEDS: ASPIRIN 81 MG ECTAB PO SCH (08:20)
[2024-07-05] MEDS: MULTIVITAMIN TAB PO SCH (08:20)
[2024-07-05] MEDS: PANTOprazole 40 MG TAB PO SCH (08:20)
[2024-07-05] MEDS: POTASSIUM CHLORIDE 10 MEQ TABCR PO SCH (08:20)
[2024-07-05] MEDS: TORSEMIDE 20 MG TAB PO SCH (08:20)
[2024-07-05] MEDS: CYANOCOBALAMIN (B-12) 500 MCG TABLET PO SCH (08:20)
[2024-07-05] MEDS: UMECLIDINIUM/VILANTEROL 62.5/25MCG 7 PUFFS/INHALER INH SCH (08:21)
[2024-07-05] MEDS: FLUTICASONE FUROATE 100MCG 14 PUFFS/INHALER INH SCH (08:21)
[2024-07-05] MEDS ORDERED: NON-FORMULARY MEDICATION (Fluticasone-Umeclidin-Vilanter [Trelegy Ellipta] 100-62.5-25 mcg INH SCH (09:00)
--- NOTE | 2024-07-05 10:35 | Pharmacy Report ---
Pharmacy Glycemic Short Note 2 - Date of Service July 05, 2024 - Glycemic Short BSG Results (Last 24 hours): 07/04/24 07/04/24 07/04/24 13:36 14:59 21:08 POC Glucose 213 H 202 H 185 H 07/05/24 07/05/24 03:50 07:28 POC Glucose 170 H 181 H OUTPATIENT ANTIDIABETIC REGIMEN: * linagliptin 5mg PO daily * metformin 1gm PO qAM, 500mg qPM HbA1C: 7.7% (06/18) ASSESSMENT: * Pt is an 88 year old male admitted POD #1 right TCAR. History of DM2 on PO medications @ home. Pharmacy consulted to assist with inpatient glycemic management. * BSGs [phone]/dL since admission. Received 15 units of basal and 6 units of bolus insulin yesterday. * Diet ordered, intra-op dexamethasone (4mg IV). * Given elevated fasting BSG this AM, will increase Lantus to 18 units. Novolog tightened for improved prandial coverage. PLAN FOR INPATIENT GLYCEMIC CONTROL: * Hold outpatient oral diabetes medications * Basal insulin * Lantus 18 units SQ daily * Bolus insulin * NovoLog per scale ACHS or Q6hrs while NPO * Goal Range: Low 110 mg/dL - High 140 mg/dL * Correction Factor: 15 mg/dL/unit * Nutritional / Prandial insulin per carb ratio of 1 unit per 6 grams CHO consumed
--- NOTE | 2024-07-05 11:14 | Critical Care Progress Note ---
Date of Service July 05, 2024 Assessment & Plan (1) Status post carotid surgery: (2) Stenosis of right internal carotid artery: (3) Diabetes mellitus, type II: (4) COPD (chronic obstructive pulmonary disease): (5) Obesity: (6) Hypothyroidism: (7) HTN (hypertension): (8) ERINN (obstructive sleep apnea): (9) Dyslipidemia: (10) CAD (coronary artery disease): Plan Reason Critically Ill: 88-year-old male with significant history of hypertension, dyslipidemia, coronary artery disease, peripheral arterial disease, obesity, and obstructive sleep apnea who presents to the ICU post RIGHT sided TCAR procedure. Patient to be monitored closely post vascular intervention. 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 * Neuro checks per unit protocol status post carotid procedure. CARDIAC/VASCULAR - * s/p RIGHT-Sided TCAR: * Minimal EBL. * Postoperative sites clean, dry, intact. * Monitor for bleeding or underlying hematoma post vascular invention. * Defer to vascular surgery for continued management. * Hypertension, dyslipidemia: * Restart home antihypertensive medications when clinically appropriate. * Monitor on telemetry. RESPIRATORY - * History of COPD: * Continue with home inhalers at this time. * Chronic hypoxemia: * Patient and describe intermittent hypoxemia for which he does have supplemental oxygen to use as needed. Will likely require in the postoperative setting as well. * ERINN: * Home CPAP with 3.5 L bled in. GI/NUTRITION - * GERD: * Prophylaxis: Home Protonix RENAL/LYTES - * No reported h/y kidney disease. * IVF: Down to off as BP tolerates. - * Swift in place - Strict I&Os. ENDO - * DMII: * BSGs per unit protocol. ISS --> gtt per unit policy. * Hypothyroidism: * Continue with home Levothyroxine dosing. HEME - * Monitor for s/s bleeding s/p vascular intervention. ID - * Prophylactic antibiotic coverage per vascular surgery. LINES/IV ACCESS - * PIVs x2 * LEFT Brachial arterial line - discontinued. DVT PROPHYLAXIS - * Per surgery * SCDs Patient had an uneventful night. He is out of bed to chair and had breakfast. Stable for downgrade from ICU status at this point. Will defer to surgical team for disposition planning moving forward. Thank you for allowing us to participate in the care of this patient. Please refer to my attending physician's documentation for any further recommendations. Admission and Anticipated Discharge Date Admission Date: July 04, 2024 Supervising Physician Co-Signing Physician Notes Agree with the note as above. Patient is stable for downgrade. Patient likely be discharged by the vascular surgical team. Subjective Patient seen and evaluated at bedside. He had an uneventful night. He is up and out of bed to chair. Offers no complaints. Review of Systems Review of Systems: A complete 10 point review of systems was reviewed with the patient with pertinent positives and negatives as per history of present illness. All else were negative. Physical Exam Physical Exam: VITAL SIGNS - Vital signs and nursing notes were reviewed. GENERAL - 88-year-old male appearing his stated age who is in no acute distress. Communicates well with provider and answers questions appropriately. SKIN - Surgical incision site noted at the RIGHT sided neck base clean, dry, and intact. LEFT-sided groin dressing clean, dry, and intact. HEAD - NC/AT. EYES - PERRL with EOMI bilaterally. Sclera anicteric. EARS - No deformities of external structures noted on gross examination bilaterally. NOSE - Midline and without cyanosis. MOUTH/OROPHARYNX - Without perioral cyanosis. NECK - RIGHT-Sided surgical site clean, dry, and intact without underlying edema. LUNGS - Chest wall symmetric without accessory muscle use, intercostals retractions, or central cyanosis. Normal vesicular breath sounds CTA B/L. No wheezes, rales, or rhonchi appreciated. CARDIAC - RRR with S1/S2. No murmur, rubs, or gallops appreciated. ABDOMEN - Abdominal contour obese without pulsations or visible masses. BS normoactive all four quadrants. No tenderness, palpable masses, hepatosplenomegaly, or ascites noted. EXTREMITIES - No clubbing or peripheral cyanosis. No pretibial edema present. +3/5 radial pulses palpated throughout. NEUROLOGIC - Cranial nerves II through XII grossly intact. PSYCH - A&Ox3 and cooperates fully with examiner. Pt is very pleasant and interacts well with examiner. Results & Data Results & Data Vital Signs (Past 12 Hours) Vital Signs Pulse Resp BP Pulse Ox 07/05/24 07:03 70 23 92 07/05/24 07:01 143/71 H 07/05/24 06:54 70 19 92 07/05/24 06:45 146/66 H 07/05/24 06:39 86 24 07/05/24 06:09 70 18 92 07/05/24 05:30 128/64 07/05/24 05:30 128/64 07/05/24 05:24 71 16 94 07/05/24 05:03 70 24 94 07/05/24 04:15 70 15 92 07/05/24 04:15 134/70 07/05/24 04:03 80 17 93 07/05/24 04:01 144/67 H 07/05/24 04:01 144/67 H 07/05/24 04:01 144/67 H 07/05/24 04:01 144/67 H 07/05/24 04:01 144/67 H 07/05/24 03:57 72 15 94 07/05/24 03:45 70 17 93 07/05/24 03:45 121/60 07/05/24 03:45 121/60 07/05/24 03:30 134/65 07/05/24 03:15 126/66 07/05/24 03:15 126/66 07/05/24 03:06 73 18 95 07/05/24 03:03 70 17 94 07/05/24 03:00 129/62 07/05/24 03:00 129/62 07/05/24 03:00 129/62 07/05/24 02:24 67 16 94 07/05/24 02:00 74 17 93 07/05/24 02:00 125/62 07/05/24 02:00 125/62 07/05/24 01:45 73 16 92 07/05/24 01:45 123/58 L 07/05/24 01:30 115/58 L 07/05/24 01:30 115/58 L 07/05/24 01:30 115/58 L 07/05/24 01:30 115/58 L 07/05/24 01:30 115/58 L 07/05/24 01:30 71 19 93 07/05/24 01:15 133/68 07/05/24 01:12 75 16 94 07/05/24 01:00 76 17 93 07/05/24 01:00 117/61 07/05/24 01:00 117/61 07/05/24 00:45 107/69 07/05/24 00:45 107/69 07/05/24 00:30 79 22 92 07/05/24 00:30 121/69 07/05/24 00:18 75 17 93 07/05/24 00:15 115/59 L 07/05/24 00:00 77 07/04/24 23:54 82 21 07/04/24 23:45 117/66 07/04/24 23:33 80 17 93 07/04/24 23:30 109/65 07/04/24 23:30 109/65 07/04/24 23:30 109/65 07/04/24 23:18 81 17 91 07/04/24 23:15 118/62 07/04/24 23:15 118/62 07/04/24 23:15 118/62 Coding Level of Care Code 74692 SUB INP/OBS CARE 235MIN Diagnoses Status post carotid surgery Z98.890 Stenosis of right internal carotid artery I65.21 Diabetes mellitus, type II E11.9 COPD (chronic obstructive pulmonary disease) J44.9 Obesity E66.9 Hypothyroidism E03.9 HTN (hypertension) I10 ERINN (obstructive sleep apnea) G47.33 Dyslipidemia E78.5 CAD (coronary artery disease) I25.10
[2024-07-05] MEDS ORDERED: LANTUS PER UNIT CHARGE SC ONE (12:15)
--- NOTE | 2024-07-05 12:35 | Surgery Progress Note ---
Date of Service July 05, 2024 Assessment & Plan (1) Internal carotid artery stent present: Plan: POD 1 from right tcar. Post op course uneventful. D\C today Admission and Anticipated Discharge Date Admission Date: July 04, 2024 Subjective Patient without any complaints. No focal deficits. Physical Exam Constitutional: WD/WN, vitals as above Respiratory: normal respiratory effort; no respiratory distress Cardiovascular: Rate/Rhythm: regular rate and regular rhythm Skin: + incision (slight ecchymosis) Neurologic: CN's II-XI intact bilaterally and moves all extremities (left side with baseline weakness) Psychiatric: A+Ox3, euthymic affect Results & Data Vital Signs (Past 12 Hours) Vital Signs Pulse Resp BP Pulse Ox 07/05/24 07:03 70 23 92 07/05/24 07:01 143/71 H 07/05/24 06:54 70 19 92 07/05/24 06:45 146/66 H 07/05/24 06:39 86 24 07/05/24 06:09 70 18 92 07/05/24 05:30 128/64 07/05/24 05:30 128/64 07/05/24 05:24 71 16 94 07/05/24 05:03 70 24 94 07/05/24 04:15 70 15 92 07/05/24 04:15 134/70 07/05/24 04:03 80 17 93 07/05/24 04:01 144/67 H 07/05/24 04:01 144/67 H 07/05/24 04:01 144/67 H 07/05/24 04:01 144/67 H 07/05/24 04:01 144/67 H 07/05/24 03:57 72 15 94 07/05/24 03:45 70 17 93 07/05/24 03:45 121/60 07/05/24 03:45 121/60 07/05/24 03:30 134/65 07/05/24 03:15 126/66 07/05/24 03:15 126/66 07/05/24 03:06 73 18 95 07/05/24 03:03 70 17 94 07/05/24 03:00 129/62 07/05/24 03:00 129/62 07/05/24 03:00 129/62 07/05/24 02:24 67 16 94 07/05/24 02:00 74 17 93 07/05/24 02:00 125/62 07/05/24 02:00 125/62 07/05/24 01:45 73 16 92 07/05/24 01:45 123/58 L 07/05/24 01:30 115/58 L 07/05/24 01:30 115/58 L 07/05/24 01:30 115/58 L 07/05/24 01:30 115/58 L 07/05/24 01:30 115/58 L 07/05/24 01:30 71 19 93 07/05/24 01:15 133/68 07/05/24 01:12 75 16 94 07/05/24 01:00 76 17 93 07/05/24 01:00 117/61 07/05/24 01:00 117/61 07/05/24 00:45 107/69 07/05/24 00:45 107/69
--- NOTE | 2024-07-05 12:37 | Discharge Summary ---
Date of Service July 05, 2024 Admission HPI Per Admitting Provider Mr. Campo is a notedly male who presents to vascular surgery clinic today for multiple vascular issues. He is followed by Dr. Montana for his history of carotid stenosis, as well as a history of aortoiliac occlusive disease with history of bilateral common iliac artery stents, and peripheral arterial disease with a history of a right common femoral artery endarterectomy. Patient denies any significant changes in his health since being seen here 6 months ago. As you may remember, the patient has a history of right hemispheric hemorrhagic CVA in 2021, and was taking off of his aspirin and Plavix at that time. A few months later he was restarted on Plavix, but not aspirin. Resultant of his hemorrhagic CVA is left sided weakness, although not complete hemiplegia. He continues to be able to ambulate with a walker but only short distances. He has some use of his left arm, but poor control. He denies any new symptoms of CVA, including amaurosis, new left-sided weakness, facial droop, difficulty speaking or swallowing. Additionally he denies any symptoms of left leg claudication, rest pain, nonhealing wounds or ulcerations. His CT angiogram shows an 80 to 90% narrowing of the right internal carotid artery at the origin. Admission Exam Per Admitting Provider Constitutional: In general patient is an obese mildly chronic ill-appearing elderly male in no distress. He is alert and oriented. Patient's left arm does demonstrate 3 out of 5 strength, with 4 out of 5 sole rougher strength. His left leg demonstrates 3 out of 5 strength. His right carotid does demonstrate a bruit. His heart is regular, lungs are decreased throughout but clear. His abdomen is protuberant due to body habitus and is somewhat firm but is nontender. He has normoactive bowel sounds in all 4 quadrants. Brachial and radial pulses are +3 bilaterally. Right femoral pulses +3, left femoral pulse is nonpalpable. Right DP and PT pulses are +1. Left DP and PT pulses are nonpalpable. Both feet are warm and pink with brisk capillary refill. There were no ulcerations or signs of ischemia. Principal Diagnosis Right internal carotid artery stenosis Discharge Exam Constitutional WD/WN, vitals as above Respiratory normal respiratory effort; no respiratory distress Cardiovascular Rate/Rhythm: regular rate and regular rhythm Skin + incision (slight ecchymosis) Neurologic CN's II-XI intact bilaterally and moves all extremities (left side with baseline weakness) Psychiatric A+Ox3, euthymic affect Discharge Data Allergies Allergy/AdvReac Type Severity Reaction Status Date / Time empagliflozin Allergy Severe rash, skin Verified 06/12/24 10:54 [From Jardiance] irritation at the groin codeine AdvReac Severe Anxiety Verified 06/12/24 10:54 symptoms hydrocodone AdvReac Severe Anxiety, Verified 06/12/24 10:54 insomnia Iodinated Contrast Media AdvReac Severe drowsy, Verified 06/12/24 10:54 "wipes patient out the following day" tramadol AdvReac Severe unable to Verified 06/18/24 12:07 move/somnolence guaifenesin [From Mucinex] AdvReac Intermediate inability Verified 06/12/24 10:54 to walk, confusion opiate AdvReac Severe unable to Uncoded 06/12/24 10:54 tolerate any pain medication Consultations 07/04/24 14:42 Consult Director Of Student Affairs Routine Procedures Performed Operation Date: 07/04/24 10:00 Actual Procedures p Right Transcarotid Artery Revascularization, Ultrasound of Left Common Femoral Vein(Right) - Maurizio Montana MD Ordered Studies 07/04/24 07:34 EV angio carotid cerv RT Routine US EV guide vascular access Routine Hospital Course (1) Internal carotid artery stent present: POD 1 from right tcar. Post op course uneventful. D\\C today Total Time Total Time Spent Total Time Spent (In Minutes): x Discharge Plan Discharge Items Patient Disposition: Home - Self-Care Reason For Visit: RIGHT INTERNAL CARTOID ARTERY STENOSIS Discharge Diagnosis: Right internal carotid artery stenosis Activity: Per Instructions section Non-emergency contact: Surgeon Call non-emergency contact if: your temperature is above 101.5, your wound has increased redness, your wound has increased drainage and your wound pain has increased Follow-up/Referrals: Jae Anthony MD [Primary Care Provider] - Diet: Carb Consistent or DM2 and Heart Healthy Addtl Attending Provider Instructions: SPECIAL CARE INSTRUCTIONS: Diet: * You may return to previous diet. Medications: * Continue to take Aspirin, brilinta, and statin as directed. Incision Care: * You may shower, but do not rub incision. You may let the warm soapy water run over it. Be sure to dry the incision well after bathing. * Do not shave directly over the incision until it is healed. * DO NOT IMMERSE THE INCISION IN A TUB/POOL/etc. UNTIL HEALED. Restrictions: * Do not drive for at least one week or if you are still taking any narcotic pain medication. * Do not lift anything heavier than a gallon of milk for one week after going home. Possible Complications: * Numbness - It is normal to have some numbness around the incision. Numbness can extend beyond the incision to areas of the neck, ear and face. The numbness is due to bruising of nerves during the surgery and will gradually improve over a period of months. * Hoarseness/Difficulty Speaking and Swallowing - The bruising of nerves in the neck can also cause a hoarse voice, difficulty speaking or swallowing. This may improve over time, HOWEVER, if it continues for more than a few days please contact our office ([phone]). * Excessive Swelling - There will be some swelling immediately after surgery which usually resolves within one week. If you notice that the swelling is getting worse, notify your surgeon ([phone]). * Drainage/Bleeding - If there is any drainage or bleeding, it should be a very small amount (less than a teaspoon per day). If you have excessive bleeding or drainage from the incision, call your surgeon ([phone]) right away. ACTIVATION OF EMERGENCY MEDICAL SYSTEM: Call 911, immediately, if you experience any of the following: Warning Signs and Symptoms of Stroke: * Sudden numbness or weakness of the face, arm or leg, especially on one side of the body * Sudden confusion, trouble speaking or understanding * Sudden trouble seeing in one or both eyes * Sudden trouble walking, dizziness, loss of balance or coordination * Sudden severe headache with no cause Do not delay calling 911 if you experience any warning signs or symptoms of a stroke. Delay in seeking medical attention may affect what treatments can be given to you. Risk Factors for Stroke: You can reduce your chances of stroke by working with your medical provider to adopt a healthy lifestyle. Some specific ways to lower your chance of stroke are: * If you are a smoker, now is the time to stop smoking cigarettes * If you are diabetic, improve the control of your blood sugars * Avoid excessive amounts of alcohol * Control high blood pressure * Lose weight if you are overweight * Be sure to lead an active lifestyle * Eat a healthy diet low in salt, cholesterol and fat You should know about other risk factors for stroke that you are unable to control. These include: * Age 55 years or older * Male gender * Certain racial groups: , or / * Family History of Stroke, Mini stroke or Heart Attack * Sickle Cell Disease You will be receiving a call from the Vascular Surgery Nurse after you are discharged. FOLLOW UP VISIT: It is important for you to keep your follow up appointments with your medical provider. Keep any scheduled doctor appointments. Call [phone] to schedule a follow up appointment if one not already scheduled. Pending Studies at Discharge: No Stand-Alone Forms: My [facility], Smoking Cessation Medications and DC Order Prescriptions: Continued multivitamin Tablet 1 tab PO QAM Qty: 30 0RF potassium chloride 10 mEq capsule, extended release 10 meq PO QAM Qty: 30 0RF carvedilol 12.5 mg tablet 12.5 mg PO BID Qty: 60 0RF torsemide 20 mg tablet 20 mg PO QAM Qty: 30 0RF cyanocobalamin (vitamin B-12) [Vitamin B-12] 1,000 mcg Tablet 1,000 mcg PO QAM Qty: 30 0RF levothyroxine 25 mcg tablet 25 mcg PO QAM Qty: 30 0RF pantoprazole 40 mg tablet,delayed release (DR/EC) 40 mg PO QAM Qty: 30 0RF Trelegy Ellipta 100-62.5-25 mcg blister with device 1 inh inhalation QAM Qty: 60 0RF metformin 500 mg tablet 1,000 mg PO QAM magnesium oxide 400 mg (241.3 mg magnesium) Tablet 400 mg PO BID Qty: 60 0RF losartan 50 mg Tablet 50 mg PO QAM metformin 500 mg Tablet 500 mg PO QPM cetirizine [Zyrtec] 5 mg Tablet 5 mg PO QAM PRN (Reason: seasonal allergies) albuterol sulfate 1.25 mg/3 mL Solution For Nebulization 1.25 mg INHALATION Q4H PRN (Reason: sob/wheezing) ondansetron HCl [Zofran] 4 mg Tablet 4 mg PO Q6H PRN (Reason: nausea/vomitting) docusate sodium 100 mg Capsule 200 mg PO HS polyethylene glycol 3350 [Miralax] 17 gram/dose Powder 8.5 g PO QAM PRN (Reason: ud - constipation) albuterol sulfate 90 mcg/actuation Hfa Aerosol Inhaler 2 inh INHALATION Q4H PRN (Reason: sob/wheezing) rosuvastatin 40 mg Tablet 40 mg PO HS pregabalin [Lyrica] 100 mg Capsule 100 mg PO BID fenofibrate nanocrystallized 48 mg Tablet 48 mg PO QPM Tradjenta 5 mg Tablet 5 mg PO QAM melatonin 10 mg Tablet 10 mg PO HS acetaminophen [Tylenol Extra Strength] 500 mg tablet 500 - 1,000 mg PO QID PRN (Reason: pain) tamsulosin 0.4 mg capsule 0.4 mg PO HS nitroglycerin [Nitrostat] 0.4 mg tablet, sublingual 0.4 mg sublingual UD PRN (Reason: Chest Pain) Brilinta 90 mg Tablet 90 mg PO BID aspirin [Aspir-81] 81 mg Tablet,Delayed Release (Dr/Ec) 81 mg PO DAILY Discontinued clopidogrel 75 mg Tablet 75 mg PO QAM Qty: 30 0RF Discharge Orders: Discharge Order (Routine); Ordered 07/05/24 Ordered By: Maurizio Montana Admission Data Admit Date/Time: 07/04/24 08:00 Attending Provider: Maurizio Montana Admit Provider: Maurizio Montana Primary Care Provider: Jae Anthony Other Providers: Michi López; Peter Olson; Paulo Rivas; Abdifatah Brennan; Jerardo Mendoza; Bee Tomlin; Talon Maddox; Corina Schwartz; Lashon Barrios; Kashmir Rojas; Rinku Saeed; Janet Baker
[2024-07-05 13:01] VITALS: BP 156/65
--- OUTSIDE RECORDS SUMMARY | 2024-07-06 12:30 | External Medical Summary | Summary of Care ---
Author Name Unknown Organization [facility] Address [address] [address] Phone [phone] Care Team Providers Care Welfare Investigator Name Role Phone Jae Anthony MD Primary Care Provide r Reason for Visit * Reason Onset Date Comments Fax 07/02/2024 Jaci Encounter Details Date Type Department Care Team (Late st Contact Info) Description 07/02/2024 Telephone Cardiology, [facility] [address] [place] [address] [place], [address] [place] [place] [address] Fax (Jaci) Allergies Active Allergy Reactions Criticality Noted Date Comments Dextromethorphan-Guaifen esin Other (Please comment) Low 05/30/2024 Hydrocodone 02/15/2023 confusion Empagliflozin Rash High 12/06/2022 Severe Yeast Infection. Oxycodone 02/15/2023 Confusion Tramadol 02/15/2023 confusion documented as of this encounter (statuses as of 07/03/2024) Medications oxygen GAS 3LPM at rest and with exertion and 4.5 lpm bled through cpap 1 Each 06/25/20 Active Additional Information Patient taking differently: 3 LPM as needed and 3.5 lpm bled through cpap, Reported on 05/30/2024 DIURETIC TITRATION PLAN If no improvement on day 3, contact heart failure managing provider. 1 Each 11/30/19 20 Active CPAP every night at bedtime. Active Multivitamin Adult Oral Tablet Take 1 Tab by mouth daily. Active Nitroglycerin 0.4 MG Sublingual Tablet Sublingual (Nitrostat) TAKE 1 TAB UNDER THE TOUNGE NEEDED FOR PAIN DIRECTED 25 Tablet 5 10/01/19 22 Active Additional Information Patient not taking.Reported on 05/30/2024 NetEffectToCebixio w/Device KitIndications:Typ e 2 diabetes mellitus with hemoglobin A1c goal of less than 8.0% (HCC) Test once a day E11.9 1 Kit 12/07/19 23 Active LancetsIndications :Type 2 diabetes mellitus with hemoglobin A1c goal of less than 8.0% (HCC) Test once daily as directed E11.9 100 Each 5 12/07/19 23 Active Acetaminophen 500 MG Oral Tablet (Tylenol) Take 1 Tablet by mouth in the morning and 1 Tablet at noon and 1 Tablet in the evening and 1 Tablet before bedtime. 100 Tablet 01/13/20 23 Active Magnesium Oxide 400 MG Oral Capsule Take 1 Capsule by mouth in the morning and 1 Capsule before bedtime. 02/16/20 23 Active Melatonin 10 MG Oral Capsule Take 1 Capsule by mouth at bedtime. Active Docusate Sodium 100 MG Oral CapsuleIndications :takes 2 at bedtime Take 2 Capsules by mouth at bedtime as needed. Active Biofreeze 5 % External Patch (Menthol (Topical Analgesic)) Apply topically to affected area. Apply 1 patch topically and change once daily as needed Active Tamsulosin HCl 0.4 MG Oral Capsule (Flomax) Take 1 Capsule by mouth at bedtime. Active [employer] In Vitro Strip (Glucose Blood)Indications: Type 2 diabetes mellitus with hemoglobin A1c goal of less than 8.0% (HCC) test once daily e11.9 100 Strip 3 01/19/20 24 Active Rosuvastatin Calcium 40 MG Oral Tablet (Crestor)Indicatio ns:Dyslipidemia, goal LDL below 70 TAKE ONE TABLET BY MOUTH AT BEDTIME 90 Tablet 1 01/31/20 24 Active Clopidogrel Bisulfate 75 MG Oral Tablet (pLAVix) Take 1 Tablet by mouth in the morning. 90 Tablet 1 03/29/20 24 Active Vitamin B-12 100 MCG Oral Tablet (vitamin B-12) TAKE ONE TABLET BY MOUTH IN THE MORNING 90 Tablet 1 03/29/20 24 Active Losartan Potassium 50 MG Oral Tablet (Cozaar)Indication s:Hypertensive heart disease with heart failure (HCC),HTN, goal below 140/90 Take 1 Tablet by mouth in the morning. 90 Tablet 1 03/29/20 24 Active Potassium Chloride Kay ER 10 MEQ Oral Tablet Extended ReleaseIndications :Hypertensive heart disease with heart failure (HCC) Take 1 Tablet by mouth in the morning. In the morning.. 90 Tablet 04/17/20 24 Active Levothyroxine Sodium 25 MCG Oral Tablet (Levoxyl)Indicatio ns:Acquired hypothyroidism (at least 30 min prior to breakfast or other meds)TAKE ONE TABLET BY MOUTH IN THE MORNING at least 30 minutes before breakfast or other medications 90 Tablet 1 04/24/20 24 Active metFORMIN HCl 500 MG Oral Tablet (Glucophage)Indica tions:DM type 2 with diabetic peripheral neuropathy (HCC) Take 2 Tablets by mouth daily with breakfast AND 1 Tablet daily with dinner. 270 Tablet 1 04/24/20 24 Active Trelegy Ellipta 100-62.5-25 MCG/ACT Aerosol Powder Breath Activated (Fluticasone-Umecl idinium-Vilanterol )Indications:breat matthew inhale 1 puff daily 60 Blister Dosing Unit 5 05/03/20 24 Active methylPREDNISolone 4 MG Oral Tablet Therapy Pack (Medrol Dosepack) Take as per instructions on package. 21 Each 05/06/20 24 Active Torsemide 20 MG Oral Tablet (Demadex)Indicatio ns:Diastolic dysfunction TAKE ONE TABLET BY MOUTH EVERY DAY 100 Tablet 05/22/20 24 Active Albuterol Sulfate (2.5 MG/3ML) 0.083% Inhalation Nebulization Solution (Proventil)Indicat ions:Viral respiratory illness Inhale 1 Vial via nebulizer every 4 hours as needed for Wheezing or Shortness of Breath. 120 mL 05/28/20 24 Active Ondansetron 4 MG Oral Tablet Disintegrating (Zofran) Place 1 Tablet on tongue every 6 hours as needed for Nausea or Vomiting. dissolve on tongue. 20 Tablet 05/28/20 24 Active Fenofibrate 48 MG Oral Tablet (Tricor) Take 1 Tablet by mouth daily with dinner. 90 Tablet 05/30/20 24 Active Pregabalin 100 MG Oral Capsule (Lyrica)Indication s:Lumbar back pain with radiculopathy affecting lower extremity,DM type 2 with diabetic peripheral neuropathy ([facility]) Take 1 Capsule by mouth in the morning and 1 Capsule before bedtime. 60 Capsule 2 05/30/20 24 Active linaGLIPtin 5 MG Oral Tablet (Tradjenta) Take 1 Tablet by mouth in the morning. 90 Tablet 3 05/30/20 24 Active Albuterol Sulfate HFA 108 (90 Base) MCG/ACT Inhalation Aerosol SolutionIndication s:COPD, group B, by GOLD 2017 classification ([facility]) Inhale 2 Puffs by mouth every 4 hours as needed for Wheezing. 18 g 5 05/30/20 24 Active Carvedilol 12.5 MG Oral Tablet (Coreg)Indications :Hypertensive heart disease with heart failure ([facility]),HTN, goal below 140/90 TAKE ONE TABLET BY MOUTH with food IN THE MORNING AND AT BEDTIME 180 Tablet 06/04/20 24 Active Cetirizine HCl 10 MG Oral Tablet (ZyrTEC) Take 0.5 Tablets by mouth in the morning. 30 Tablet 06/04/20 24 025 Active Pantoprazole Sodium 40 MG Oral Tablet Delayed Release (Protonix) Take 1 Tablet by mouth in the morning. In the morning.. 90 Tablet 1 06/25/20 24 Active Aspirin 81 MG Oral Capsule Take by mouth daily. 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 Left hemiplegia 01/12/2023 Assessment & Plan (08/03/2023 4:02 PM EST): Recent fall at home 07/[address] referral for PT eval Continue to use assistive device Family assistance for ADLs History of cerebellar stroke 01/06/2023 History of cerebellar hemorrhage 01/06/2023 Ataxia, post-stroke 01/06/2023 CPAP (continuous positive airway pressure) depen helen 01/06/2023 Overflow incontinence 08/20/2021 Lumbar back pain with radicu lopathy affecting lower extremity 02/17/2021 Bilateral carotid artery stenosis 11/13/2020 Atherosclerosis of coronary artery bypass graft(s), unspecified, with unspecified angina pectoris 11/28/2019 Overview (08/03/2023): CAD, s/p CABG x4 (MCNULTY to LAD, SVG to Diag, SVG to Obtuse Marginal, SVG to PDA) in 2000, followed by PCI to Lcx 2007, repeat cath in [place] 08/10/2019 showed severe [place] vessel disease with patent grafts Assessment & Plan (01/14/2023 11:47 PM EDT): Stable. No angina. -continue rosuvastatin, losartan, carvedilol -antiplatelets on hold until CT scan can be done in 2-3 weeks History of heart attack 11/28/2019 S/P TAVR (transcatheter aortic valve replacement ) 11/20/2019 Iron deficiency anemia 10/02/2019 Assessment & Plan (01/14/2023 11:52 PM EDT): Per daughter, has needed iron transfusions in the past. Last hemoglobin 15.4 01/10/23 Chronic respiratory failure with hypoxia 020 Assessment & Plan (01/14/2023 11:50 PM EDT): Current Status : "Stable" for patient / At or near baseline Degree of Condition Awareness: Demonstrates very good awareness of condition, disease course, and prognosis "RED FLAG" COPD symptoms: o Increased shortness of breath at rest ("I struggle to breathe even when watching TV", "I have to wear or turn up my oxygen just when I'm sitting on the couch") Medication Regimen o All Classes - HUBERT o Class D - Inhaled Scvmvlmkejatjo-OZRQ-ZSZW Combination Inhaler (Trellegy) Self-Management plan o Prednisone tapering dose Rx Exacerbation plan o Solumedrol 60mg IM/IV COPD, group B, by GOLD 2017 classification 01/08 Overview (08/08/2019): Per COPD GOLD Classification In Check dial performed to assess inhaler technique: 08/08/19. Name of inhalers Trelegy Ellipta Pass: Yes at 35L/min and Albuterol Pass: Yes at 60L/min. Encouraged to take slow deep breath, use aero chamber, and rinse after steroid. Test performed by Arielle ICT PROJECT MANAGER CPFT Assessment & Plan (08/03/2023 4:07 PM EST): "RED FLAG" COPD symptoms: Change in mucous ("My normal mucous is clear but this is yellow and tastes terrible") Wheezing ("You can hear the whistling across the room") Medication Regimen All Classes - HUBERT Class D - Inhaled Zdokleodsnfbkk-FELP-CDJN Combination Inhaler (Trellegy) Remote Patient Monitoring Vendor: No Connected RPM Device(s): No current devices Self-Management plan Begin wearing supplemental oxygen continuously until symptoms return to baseline Exacerbation plan Chest Xray Additional Comments: Using CPAP at hs with supplemental o2 Occasionally using prn o2 during the day Hypertensive heart disease with heart failure Assessment & Plan (01/14/2023 11:48 PM EDT): Current Status: "Stable" for patient / At or near baseline Degree of Condition Awareness: Demonstrates very good awareness of condition, disease course, and prognosis "RED FLAG" HF Symptoms: o Increased shortness of breath at rest (Example: "I struggle to breathe even when watching TV") Current Heart Failure Classifications: o With less than ordinary activity ([facility] CLASS III) Diagnostic Review: Recent Labs Units 01/10/23 0550 03/17/22 1108 10/22/21 1057 LEFT VENTRICULAR EJECTION FRACTION % -- -- 59 ESTIMATED GLOMERULAR FILTRATION RATE - [facility] mL/min 86 < > -- EGFR-OUTSIDE LAB -- < > -- HGB - [facility] g/dL 15.4 < > -- HEMOGLOBIN-OUTSIDE LAB -- < > -- < > = values in this interval not displayed. Medication Regimen: o Beta Sandrine Therapy: Carvedilol o LB Inhibitor/ARB Therapy: Losartan o Diuretic therapy: Torsemide Self - Management Plan o Double dose of Torsemide for 2 days Exacerbation Plan o BMP o Pro-BNP Type 2 diabetes mellitus with peripheral vascula r disease 11/27/2018 Assessment & Plan (08/03/2023 4:21 PM EST): "RED FLAG" Diabetic symptoms: Confusion and Vision Changes Goal HgbA1c Symptom Management Only Diabetic Complications Neurologic (example: Peripheral Neuropathy) Renal (example: CKD, Proteinuria, Dialysis) Medication Regimen Metformin DPP-4 Inhibitors (ex: Januvia, Tradjenta) DM Secondary Prevention Moderate-High Intensity Statin Additional Comments Last A1c 8.1 Monitors blood glucose once daily Assessment & Plan (01/14/2023 11:49 PM EDT): Current Status: Improving Degree of Condition Awareness: Demonstrates very good awareness of condition, disease course, and prognosis "RED FLAG" Diabetic symptoms: o none Goal HgbA1c o <7 Diabetic Complications o Vascular (examples: PVD, PAD, CAD, CVA) Medication Regimen o Metformin DM Secondary Prevention o LB Inhibitor / ARB o Moderate-High Intensity Statin Metformin recently decreased back down to 500 mg twice daily Former smoker 11/14/2017 PVD (peripheral vascular disease) 10/06/2017 Overview (11/02/2019): In a combination Allergic rhinitis 11/03/2015 Type 2 diabetes mellitus wit h hemoglobin A1c goal of less than 8.0% 10/16/2013 Overview (11/27/2015): hgba1c 6.7, glucose 146 ICD-10 update of inactive term Hypothyroidism 10/06/2012 Assessment & Plan (01/14/2023 11:52 PM EDT): Continue Synthroid Bilateral carotid artery disease 04/20/2012 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 BPH without obstruction/lower urinary tract symp toms 11/19/2005 Gastroesophageal reflux disease without esophagi tis Assessment & Plan (01/14/2023 11:55 PM EDT): Symptoms controlled with pantoprazole Bicuspid aortic valve documented as of this encounter (statuses as of 07/03/2024) Resolved Problems Problem Noted Date Diagnosed Date Resolved Date HTN, goal below 140/90 08/20/202108/03 Mixed incontinence 08/20/2021 Chronic calculous cholecystitis 10/07/2020 02/17/2021 Cholecystitis 11/27/2019 02/17/2021 Other artificial openings of gastrointestinal tract status 06/22/2019 08/20/2021 Acute calculous cholecystitis 06/09/2019 10/09/2019 Atherosclerotic heart diseas e of [place] coronary artery with unspecified angina pectoris 12/07/2018 12/07/2018 OBSTRUCTIVE SLEEP APNEA, MODERATE: AHI 16 12/06/2018 02/07/2019 COPD, moderate 05/30/2018 01/10/2019 Overview: Per COPD GOLD Classification Atherosclerosis of [place] of both lower extremities with intermittent claudication 10/06/2017 11/14/2017 Low back pain 04/30/2014 11/02/2019 Overview (11/02/2019): acute Carotid stenosis, non-symptomatic 07/10/2012 03/04/2016 Stable angina 04/20/2012 05/12/2017 HTN, goal below 140/90 02/18/201205/12 Carotid stenosis, left 02/18/201211/14 Carotid stenosis, non-symptomatic 02/17/2012 04/20/2012 ADVANCE DIRECTIVE INFORMATION 11/17/2011 06/04/2024 Overview (11/17/2011): Yes, Patient instructed to provide copy of advance directive for provider to review and to be scanned into Electronic Medical Record Genetic Sleep Disorder Resea [facility] Other*[id number] 05/06/2011 03/03/2016 Dyspnea and respiratory abnormality 04/06/2011 01/12/2018 Overview (05/24/2017): ICD-10 update of inactive term ACTIVE CASE MANAGEMENT 07/30/200801/01 Overview (07/30/2008): Magda David RN [facility]- [phone] Cramp in limb 06/07/2003 10/17/2013 Atherosclerosis of [place] co ronary artery of [place] heart without angina pectoris HYPERLIPIDEMIA NEC-NOS 07/08 Overview (07/08/2009): Per Lipid Taxonomy. OTHER AND UNSPECIFIED SLEEP APNEA 04/06/2011 Overview (04/06/2011): 04/05/11 d/c CPAP Benign prostatic hyperplasia 11/20/2021 Overview (05/02/2017): ICD-10 update of inactive term ICD-10 update of inactive term Carotid stenosis 06/08/2012 Aortic stenosis, severe 12/30 documented as of this encounter (statuses as of 07/03/2024) Immunizations Name Administration Dates Next Due COVID-19 mRNA, LNP-s, No Pre serve, 2-Dose Series (Moderna) 10/03/2020,09/05/2020 COVID-19, MRNA-LNP, PF, 30 M CG/0.3 mL, 12 YRS AND ABOVE, IM (PFIZER-Comirnaty) 06/16/2023 COVID-19, mRNA, LNP-s, PF, B ooster, 100mcg/0.5mg (Moderna) 08/25/2021 Covid-19, Mrna, Lnp-s, Pf, B ivalent, 30 Mcg, IM, 12 yrs and above (Pfizer) 06/08/2022 Pneumococcal Conjugate Vacc, 13 Valent (Prevnar) 11/29/2014 Pneumococcal Polysaccharide PPV23 (Pneumovax) 10/25/2018,06/07/2003,08/01/2002 Seasonal Influenza, Quadriva lent Hd (Fluzone Hd) 06/16/2023,05/27/2022,05/04/2021 Seasonal Influenza, Quadriva lent, No Preserve, IM 04/23/2015 TD - Tetanus/Diptheria (ADULT) 06/07/2003 TDAP, Age 7 and older, IM (Adacel) 10/06/2012 Zoster Vaccine Recombinant (Shingrix) 07/08/2022 documented as of this encounter Social History Tobacco Use Types Packs/Day Years Used Date Smoking Tobacco: Former Cigarettes Q uit: 12/30/1959 Smokeless Tobacco: Former Chew Quit: 12/30/1959 Comments:H/o 4 ppd cigarette s for 30 years. Alcohol Use Standard Drinks/Week Comments Yes 0 (1 standard drink = 0.6 oz pur e alcohol) occassional PHQ-2 Answer Date Recorded PHQ Adult Total Score 0 02/17/2021 Hunger Vital Sign Answer Date Recorded Within the past 12 months, y ou worried that your food would run out before you got the money to buy more. Never true 05/13/20 24 Within the past 12 months, t he food you bought just didn't last and you didn't have money to get more. Never true 05/13/2024 Childcare Answer Date Recorded Do you feel overwhelmed with taking care of a child, family member or friend? No 05/13/2024 Does your family need help f inding childcare? (Household - for ages 0-17 years) Not on file 05/13/2024 Clothing Answer Date Recorded Have you been unable to get clothing when it was really needed? No 05/13/2024 Is your family able to get c lothes or diapers when needed? (Household - for ages 0-17 years) Not on file 05/13/2024 Personal Safety Answer Date Recorded Do you feel unsafe or have concerns for your saf ety? No 05/13/2024 Do you have concerns for you r family's safety? (Household - for ages 0-17 years) Not on file 05/13/2024 Utilities Answer Date Recorded Do you have trouble paying y our heating, water, or electric bill? No 05/13/2024 Is your family able to pay t he heat, water, or electric bill? (Household - for ages 0-17 years) Not on file 05/13/2024 Does your family have access to good internet? (Household - for ages 0-17 years) Not on file 05/13/2024 Employment Status Answer Date Recorded Are you unemployed or without regular income? No 05/13/2024 Does the household have a re gular source of income? (Household - for ages 0-17 years) Not on file 05/13/2024 Social Connections Answer Date Recorded How often do you feel lonely or isolated from th ose around you? Never 05/13/2024 Financial Resource Strain Answer Date R ecorded Do you have any trouble payi ng for your medications, or do you think you might in the future? No 05/13/2024 Does your family have troubl e paying for medicine? (Household - for ages 0-17 years) Not on file 05/13/2024 Transportation Needs Answer Date Record ed READ ONLY Do you have troubl e getting a ride to medical visits or work? Never True 05/13/2024 Does your family have a hard time getting a ride to doctors visits? (Household - for ages 0-17 years) Not on file 05/13/2024 Has lack of transportation k ept you from medical appointments, meetings, work, or from getting things needed for daily living? Check all that apply. No 05/13/2024 Do you (or your family) have trouble finding or paying for a ride (transportation)? (Household - for ages 0-17 years) Not on file 05/13/2024 Housing Stability Answer Date Recorded Do you currently live in a s helter or have no steady place to sleep at night? No 05/13/2024 READ ONLY Do you think you a re at risk of becoming homeless? No 05/13/2024 Does your family worry about paying for your home or becoming homeless? (Household - for ages 0-17 years) Not on file 1 Are you homeless or worried that you might be in the future? No 05/13/2024 Are you (or your family) jessica eless or worried that you might be in the future? (Household - for ages 0-17 years) Not on file Food Insecurity Answer Date Recorded Do you need food for this week? No 05/13/2024 Are you able to get enough f ood for your family? (Household - for ages 0-17 years) Not on file 05/13/2024 Does your family need food t his week? (Household - for ages 0-17 years) Not on file 05/13/2024 Do you always have enough fo od for your family? 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 Answer Date of Assessment Author No 10/07/2020 11:38 PM Riddhi Zelaya RN * Are you blind or do you have serious difficulty seeing, even when wearing glasses? Answer Date of Assessment Author No 10/07/2020 11:38 PM Riddhi Zelaya RN * Do you have serious difficulty walking or climbing stairs? (5 years old or older) Answer Date of Assessment Author Yes 10/07/2020 11:38 PM Riddhi Zelaya RN * Do you have difficulty dressing or bathing? (5 years old or older) Answer Date of Assessment Author Yes 10/07/2020 11:38 PM Riddhi Zelaya RN * Because of a physical, mental, or emotional condition, do you have difficulty doing errands alone such as visiting a doctors office or shopping? (15 years old or older) Answer Date of Assessment Author No 10/07/2020 11:38 PM Riddhi Zelaya RN documented as of this encounter Mental Status * Because of a physical, mental, or emotional condition, do you have serious difficulty concentrating, remembering, or making decisions? (5 years old or older) Answer Entry Date Author No 10/07/2020 11:38 PM Riddhi Zelaya RN documented in this encounter Miscellaneous Notes * Telephone Encounter - Talita Singletary CMA - 07/03/2024 2:01 PM EST Last EKG we have is dated 05-27-2023. Has been faxed again to the number provided. Successful transmission confirmation received. * Telephone Encounter - Kaushal Horn MED ASSIST - 07/03/2024 1:28 PM EST Echo faxed to number provided * Telephone Encounter - Jennifer Enamorado OSA - 07/03/2024 1:18 PM EST Person calling: Piper Relationship to patient: [facility] Phone/Fax to return call: [phone] Reason for call(brief): Fax - urgent Pharmacy: NA Provider Name:Dr Beatty Detailed message to office:[facility] calling to say they still did not receive the EKG - should have been faxed to [phone], Dr Fernández - he leaves at 3 pm today and the pt's surgery is tomorrow - please advise - contact office to assure they received fax * Telephone Encounter - Vickie Grubbs OSA - 07/03/2024 1:14 PM EST German from [facility] calling needs a copy of pt echo that was done on 06-21-2024 please fax to [phone] pt has surgery * Telephone Encounter - Talita Singletary CMA - 07/02/2024 3:03 PM EST Last EKG dated 05-17-2023 faxed as requested. * Telephone Encounter - Dai Bonilla OSA - 07/02/2024 1:24 PM EST Person calling: Piper Relationship to patient: Dr Fernández office Phone/Fax to return call: [phone] Reason for call(brief): fax ekg Pharmacy: Provider Name:Jaci Detailed message to office:Please fax pt last EKG to Dr Fernández office at [phone]. Thank you documented in this encounter Plan of Treatment Upcoming Encounters Date Type Department Care Team (Late st Contact Info) Description 08/13/2024 2:30 PM EST Home Visit [facility] [address] [address] Clau King RN [address] [address] 08/20/2024 1:20 PM EST Office Visit Family Medicine [address] [place] [phone] Jae Anthony MD [address] [place] [address] [place] [id number] 01/11/2025 1:20 PM EDT Office Visit [facility] [address] [phone] Payal Bonilla DO [address] [address] 01/17/2025 1:00 PM EDT Office Visit Cardiology [address] [place] [address] Frances Hopkins PA-C [address] [address] Health Maintenance Due Date Last Done Comments Adult Wellness Visit 2002 Diabetic Foot Exam 11/13/2021 11/13/2020, 0 01/14/2020, 12/07/2018, Additional history exists Depression Screening 02/17/2022 02/17/2021 Zoster Vaccines (2 of 2) 09/02/2022 07/08/2022 DTap/Tdap Vaccines (2 - Td or Tdap) 10/06/2022 10/06/2012, 06/07/2003 COVID-19 Vaccine ( season) 2024 06/16/2023, 06/08/2022, 08/25/2021, Additional history exists Influenza Vaccine (FLU shot) (#1) 2024 06/16/2023, 05/27/2022, 05/04/2021, Additional history exists Albumin/Creatinine Ratio 06/06/2024 023, 07/08/2022, 05/04/2021, Additional history exists HbA1c 09/26/2024 03/26/2024, 03/0 12/2023, 06/06/2023, Additional history exists Diabetic Eye Exam 12/22/2024 12/23/2023, , 12/20/2022, Additional history exists TSH 03/26/2025 03/26/2024, 03/0 12/2023, 06/06/2023, Additional history exists O2 ASSESSMENT COMPLETED IN PAST YEAR FOR COPD 07/02/2025 07/02/2024 Pneumococcal Vaccine: 65+ Years Completed 10/25/2018, 11/29/2014, 06/07/2003, Additional history exists Alpha-1 Antitrypsin Completed 02/04/2021 HPV (Gardasil) Vaccine Aged Out No lo nger eligible based on patient's age to complete this topic Hepatitis B Vaccine Aged Out No longe r eligible based on patient's age to complete this topic MENINGOCOCCAL (MENACTRA/MENVEO) Aged Out No longer eligible based on patient's age to complete this topic documented as of this encounter Medical Devices Implanted Type Area Nutrition Partner Device Identifier Shelf Expiration Date Model / Serial / Lot Intraocular Posterior Chamber Lens Implanted:Qty: 1 on 12/05/2014 by Christiano Britt MD at [facility] Left: Eye BAUSCH & LOMB 06/30/2017 [id number] / [id number] / [id number] 24.0 Io Lens Implanted:Qty: 1 on 01/02/2015 by Christiano Britt MD at [facility] Right: Eye 04/29/2017 [id number] / [id number] / [id number] Clip Padlock Def Closure - [id number] Implanted:Qty: 1 on 01/17/2020 by Zay Goodman DO [place] [facility] [employer] 09/27/2022 [id number] / / [id number] Duraclip - [id number] Implanted:Qty: 3 on 01/17/2020 by Zay Goodman DO [place] [facility] CONMED ROSMERY 03/18/2022 [id number] / / [id number] documented as of this encounter Advance Directives * Full Code (Latest Code Status on File) Date Activated Date Inactivated Comments 10/07/2020 9:18 PM 10/08/2020 7:33 PM This order re flects the patients wishes and were consensually agreed upon. Question Answer Comments Discussion of Advance Directives occurred with: Patient * Full Code Date Activated Date Inactivated Comments 10/07/2020 9:16 PM 10/07/2020 9:17 PM This order ref lects the patients wishes and were consensually agreed upon. Question Answer Comments Discussion of Advance Directives occurred with: Patient * Full Code Date Activated Date Inactivated Comments 11/20/2019 5:41 PM 11/21/2019 6:35 PM This order r eflects the patients wishes and were consensually agreed upon. * No Code Date Activated Date Inactivated Comments 06/11/2019 8:01 PM 06/12/2019 3:58 PM This order reflects the patients wishes and were consensually agreed upon. Question Answer Comments Discussion of Advance Direct isabel occurred with: Patient/Family Does the patient have a Living Will? Yes, in jesica rt and reviewed as current Does the patient have Health Care Power of Dry Sander? Yes, in chart and reviewed as current * Full Code Date Activated Date Inactivated Comments 06/09/2019 1:36 PM 06/11/2019 8:01 PM Question Answer Comments Discussion of Advance Directives occurred with: Not Discussed Does the patient have a Living Will? No Does the patient have Health Care Power of Attor kyle? No Care Teams Welfare Investigator Relationship Specialty Start Date End Date Jae Anthony MD [address] [place] [address] [place] [id number] PCP - General Family Medicine 10/06/12 documented as of this encounter
--- OUTSIDE RECORDS SUMMARY | 2024-07-06 12:30 | External Medical Summary | Summary of Care ---
Author Name Unknown Organization [facility] Address [address] [address] Phone [phone] Care Team Providers Care Buyer Grain Name Role Phone Jae Anthony MD Primary Care Provide r Reason for Visit * Reason Onset Date Comments Fax 07/02/2024 Jaci Encounter Details Date Type Department Care Team (Late st Contact Info) Description 07/02/2024 Telephone Cardiology, [facility] [address] [place] [address] [place], [address] [place] [address] Fax (Jaci) Allergies Active Allergy Reactions Criticality [...] Additional Information Patient not taking.Reported on 05/30/2024 [employer] ExchangeToSonarMedio w/Device KitIndications:Typ e 2 diabetes mellitus with [...] 1 Capsule by mouth at bedtime. Active [employer] In Vitro Strip (Glucose Blood)Indications: Type 2 [...] extremity,DM type 2 with diabetic peripheral neuropathy ([facility]) Take 1 Capsule by mouth in the morning and 1 Capsule before bedtime. 60 Capsule 2 05/30/20 24 Active linaGLIPtin 5 MG Oral Tablet (Tradjenta) Take 1 Tablet by mouth in the morning. 90 Tablet 3 05/30/20 24 Active Albuterol Sulfate HFA 108 (90 Base) MCG/ACT Inhalation Aerosol SolutionIndication s:COPD, group B, by GOLD 2017 classification ([facility]) Inhale 2 Puffs by mouth every 4 hours as needed for Wheezing. 18 g 5 05/30/20 24 Active Carvedilol 12.5 MG Oral Tablet (Coreg)Indications :Hypertensive heart disease with heart failure ([facility]),HTN, goal below 140/90 TAKE ONE TABLET BY [...] PCI to Lcx 2007, repeat cath in [place] 08/10/2019 showed severe [place] vessel disease with patent grafts Assessment & [...] - HUBERT o Class D - Inhaled Qnpvmndmuvjfmd-KXYU-UIFO Combination Inhaler (Trellegy) Self-Management plan o Prednisone [...] and rinse after steroid. 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 12/07/2018 12/07/2018 OBSTRUCTIVE SLEEP APNEA, MODERATE: AHI 16 12/06/2018 02/07/2019 COPD, moderate 05/30/2018 01/10/2019 Overview: Per COPD GOLD Classification Atherosclerosis of [place] ar francisco of both lower extremities with [...] Electronic Medical Record Genetic Sleep Disorder Resea [facility] Other*[id number] 05/06/2011 03/03/2016 Dyspnea and respiratory abnormality 04/06/2011 01/12/2018 Overview (05/24/2017): ICD-10 update of inactive term ACTIVE CASE MANAGEMENT 07/30/200801/01 Overview (07/30/2008): Magda David RN [facility]- [phone] Cramp in limb 06/07/2003 10/17/2013 Atherosclerosis of [place] co ronary artery of [place] heart without angina pectoris HYPERLIPIDEMIA NEC-NOS 07/08 [...] file Not on file Not on file Loss Prevention Guard Not on file Not on file Not [...] encounter Miscellaneous Notes * Telephone Encounter - Kaushal Horn MED ASSIST - 07/03/2024 1:28 PM EST Echo faxed to number provided * Telephone Encounter - Jennifer Enamorado OSA - 07/03/2024 1:18 PM EST Person calling: Piper Relationship to patient: [facility] Phone/Fax to return call: [phone] Reason for call(brief): Fax - urgent Pharmacy: NA Provider Name:Dr Beatty Detailed message to office:[facility] calling to say they still did not receive the EKG - should have been faxed to [phone], Dr Fernández - he leaves at 3 pm today and the pt's surgery is tomorrow - please advise - contact office to assure they received fax * Telephone Encounter - Vickie Grubbs OSA - 07/03/2024 1:14 PM EST German from [facility] calling needs a copy of pt echo that was done on 06-21-2024 please fax to [phone] pt has surgery * Telephone Encounter - Talita Singletary CMA - 07/02/2024 3:03 PM EST Last EKG dated 05-17-2023 faxed as requested. * Telephone Encounter - Dai Bonilla OSA - 07/02/2024 1:24 PM EST Person calling: Piper Relationship to patient: Dr Fernández office Phone/Fax to return call: [phone] Reason for call(brief): fax ekg Pharmacy: Provider Name:Jaci Detailed message to office:Please fax pt last EKG to Dr Fernández office at [phone]. Thank you documented in this encounter Plan of Treatment Upcoming Encounters Date Type Department Care Team (Late st Contact Info) Description 08/13/2024 2:30 PM EST Home Visit [facility] at [place], [facility] [address] [address] [place], [place] [address] [place] [address] 08/20/2024 1:20 PM EST Office Visit Family Medicine [address] [place] [phone] Jae Anthony MD [address] [place] [address] [place] [address] 01/11/2025 1:20 PM EDT Office Visit Sleep Disorders Ctr [facility] [address] [place] [phone] Payal Bonilla DO [address] [place] [address] 01/17/2025 1:00 PM EDT Office Visit Cardiology [address] [place] [address] Frances Hopkins PA-C [address] [place] [address] Health Maintenance Due Date Last Done Comments [...] this encounter Medical Devices Implanted Type Area Stem Dryer Maintainer Device Identifier Shelf Expiration Date Model / Serial / Lot Intraocular Posterior Chamber Lens Implanted:Qty: 1 on 12/05/2014 by Christiano Britt MD at OR [facility] Left: Eye BAUSCH & LOMB 06/30/2017 [id number] / [id number] / [id number] 24.0 Io Lens Implanted:Qty: 1 on 01/02/2015 by Christiano Britt MD at OR [facility] Right: Eye 04/29/2017 [id number] / [id number] / [id number] Clip Padlock Def Closure - [id number] Implanted:Qty: 1 on 01/17/2020 by Zay Goodman DO at [facility] [facility] [employer] 09/27/2022 [id number] / / [id number] Duraclip - [id number] Implanted:Qty: 3 on 01/17/2020 by Zay Goodman DO at [facility] CONMED ROSMERY 03/18/2022 [id number] / / [id number] documented as of this encounter Advance Directives [...] the patient have Health Care Power of Plsql Developer? Yes, in chart and reviewed as current * Full Code Date Activated Date Inactivated Comments 06/09/2019 1:36 PM 06/11/2019 8:01 PM Question Answer Comments Discussion of Advance Directives occurred with: Not Discussed Does the patient have a Living Will? No Does the patient have Health Care Power of Attor kyle? No Care Teams Buyer Grain Relationship Specialty Start Date End Date Jae Anthony MD [address] [place] [address] [place] [address] PCP - General Family Medicine 10/06/12 documented as of this encounter
--- OUTSIDE RECORDS SUMMARY | 2024-07-06 12:31 | External Medical Summary | Continuity of Care Document ---
Author Name Unknown Organization [facility] [address] [place], [place] [id number] Care Team Providers Care Divine Healer Name Role Phone Jea Anthony Primary Care Physician [phone] [id number] Date[facility] - 06/29/24 [facility] [address] [facility] [address] [place] [place], [facility] [address] [place], [place] [phone] Encounter Diagnosis Occlusion and stenosis of bilateral carotid arteries(Final) - Discharge Disposition: Home or Self Care Attending Physician: MD [place] Eugene J Referring Physician: MD [place] Eugene J Allergies, Adverse Reactions, Alerts Substance Criticality Severity Reaction Reaction Severity Status narcotic analgesics does not tolerate well Active Jardiance Genital lentiginosis Active Medications albuterol 0.083% for nebulization Start: 06/11/24 3:00:00 PM EST, 3 mL, inhaled, q6h, PRN: as needed for wheezing Start Date: 06/11/24 Status: Ordered aspirin 81 mg oral tablet, chewable Start: 06/11/24 4:00:00 PM EST, 1 tab, PO, Daily, Disp# 30 tab, Refills: 11, Pharmacy: [id number] Start Date: 06/11/24 Status: Ordered carvedilol 12.5 mg oral tablet Start: 01/18/22 3:19:00 PM EDT, 1 tab, PO, bid Start Date: 01/18/22 Status: Ordered clopidogrel 75 mg oral tablet Start: 01/18/22 3:18:00 PM EDT, 1 tab, PO, Daily Start Date: 01/18/22 Status: Ordered docusate sodium 100 mg oral capsule Start: 04/22/22 10:09:00 AM EDT, 1 cap, PO, Daily, PRN: as needed for constipation Start Date: 04/22/22 Status: Ordered fenofibrate 48 mg oral tablet Start: 10/25/23 3:10:00 PM EDT, 1 tab, PO, Daily Start Date: 10/25/23 Status: Ordered levothyroxine 25 mcg (0.025 mg) oral tablet Start: 01/18/22 3:19:00 PM EDT, 1 tab, PO, Daily Start Date: 01/18/22 Status: Ordered losartan 25 mg oral tablet Start: 01/18/22 3:18:00 PM EDT, 2 tab, PO, Daily Start Date: 01/18/22 Status: Ordered Mag-Ox 400 oral tablet Start: 04/28/23 10:47:00 AM EDT, 1 tab, PO, bid Start Date: 04/28/23 Status: Ordered melatonin 5 mg oral tablet Start: 04/28/23 10:48:00 AM EDT, See Instructions, 2 tab PO qhs, PRN: Insomnia Start Date: 04/28/23 Status: Ordered metFORMIN 500 mg oral tablet Start: 01/18/22 3:19:00 PM EDT, See Instructions, 2 tab PO q AM and 1 tab po q PM Start Date: 01/18/22 Status: Ordered multivitamin Start: 04/28/23 10:50:00 AM EDT, 1 tab, PO, Daily Start Date: 04/28/23 Status: Ordered nitroglycerin 0.4 mg sublingual tablet Start: 01/18/22 3:19:00 PM EDT Start Date: 01/18/22 Status: Ordered ONETOUCH ULTRA EA Start: 01/18/22 3:19:00 PM EDT, ONETOUCH ULTRA EA Start Date: 01/18/22 Status: Ordered pantoprazole 40 mg oral delayed release tablet Start: 01/18/22 3:18:00 PM EDT, 1 tab, PO, Daily Start Date: 01/18/22 Status: Ordered Potassium Chloride (Smz-Klem-Xfl M10) 10 mEq oral tablet, extended release Start: 01/18/22 3:17:00 PM EDT, 1 tab, PO, Daily Start Date: 01/18/22 Status: Ordered pregabalin 100 mg oral capsule Start: 06/11/24 3:02:00 PM EST, 1 cap, PO, bid Start Date: 06/11/24 Status: Ordered rosuvastatin 40 mg oral tablet Start: 01/18/22 3:17:00 PM EDT, 1 tab, PO, Daily Start Date: 01/18/22 Status: Ordered tamsulosin 0.4 mg oral capsule Start: 05/01/24 3:47:00 PM EDT, 1 cap, PO, Daily Start Date: 05/01/24 Status: Ordered torsemide 20 mg oral tablet Start: 01/18/22 3:19:00 PM EDT, 1 tab, PO, Daily Start Date: 01/18/22 Status: Ordered Tradjenta 5 mg oral tablet Start: 10/25/23 3:10:00 PM EDT, 1 tab, PO, Disp# 30 tab Start Date: 10/25/23 Status: Ordered Trelegy Ellipta 100 mcg-62.5 mcg-25 mcg/inh inhalation powder Start: 01/18/22 3:18:00 PM EDT, 1 puff, inhaled, Daily Start Date: 01/18/22 Status: Ordered Tylenol 8 HR Arthritis Pain 650 mg oral tablet, extended release Start: 04/22/22 10:09:00 AM EDT Start Date: 04/22/22 Status: Ordered Vitamin B12 2500 mcg sublingual tablet Start: 04/22/22 10:09:00 AM EDT, 1 tab, SL, Daily Start Date: 04/22/22 Status: Ordered ZyrTEC 10 mg oral tablet Start: 06/11/24 3:00:00 PM EST, 1 tab, PO, Daily, PRN: as needed for allergy symptoms Start Date: 06/11/24 Status: Ordered Problem List Condition Confirmation Course Effective Dates Status Health St atus Informant Bilateral carotid artery stenosis Confirmed Active Carotid stenosis Confirmed Active 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 Aortoiliac occlusive disease Confirmed Active Hand laceration involving tendon Confirmed Active Procedures Procedure Date Related Diagnosis Body Site Status Right WOOD FINISHER APPRENTICE w/ bovine patch, b il common iliac artery stents 05/27/22 Completed Gallbladder operation Com pleted Heart valve replacement C ompleted Tonsillectomy Completed Uvulectomy Completed Results Laboratory List Name Date Platelet Function (P2Y12 Receptor) (PLT FUNCTION P2Y12) 06/29/24 Most recent to oldest [Reference Range]: 1 P2Y12 Platelet Function [194-418 PRU] 22 4 PRU 1 (06/29/24 11:59 AM) 1Result Comment: PRU reference range is 194-418 (healthy adults, no drug treatment). Post Drug Results: Lower PRU levels are expected following treatment with antiplatelet drugs. Post-treatment values are usually below the stated reference range above. The post-drug PRU values reported in the VerifyNOW P2Y12 package insert are 18-435. This broader range reflects the variability in drug response and is consistent with significant numbers of patients with decreased sensitivity to P2Y12 receptor antagonists (prasugrel or clopidogrel). Clinical studies suggest an on-treatment PRU>230 indicates less than optimal response to therapy, and PRU<208 at 12-24 hours after percutaneous intervention or during follow-up is associated with a lower risk of cardiovascular events (1). (1).Standard-vs high-dose clopidogrel based on platelet function testing after percutaneouscoronary intervention: the GRAVITAS randomized trial. Allen et al. ANIYA. 2010October 14; 305(11): 6245-8619. doi: 10.1001/aniya.2011.290 Social History Social History Type Response Tobacco Former smoker, Start ed age 34 Years. Stopped age 37 Years. Smoking Status Former Smoker, quit > 1 yr Sex Male Sex Representation Male (finding) Patient Care team information Care Team Personnel Name: MD Anthony Doriann L Position: Referring DIRECT Member Role: Primary Care Provider Address: [address] [place] [id number] [place] Name: CARTER Joyce Lynn Position: Physician Medical Grade Shoemaker Exempt - Vasc Surg Member Role: Lifetime Relationship Address: [address] [place] [address]
--- OUTSIDE RECORDS SUMMARY | 2024-07-06 12:31 | External Medical Summary | Summary of Care ---
Author Name Unknown Organization [facility] [address] [address] [address] Phone [phone] Care Team Providers Care Autopsy Assistant Name Role Phone Jae Anthony MD Primary Care Provide r Reason for Visit * Reason Onset Date Comments Fax 07/02/2024 Jaci Encounter Details Date Type Department Care Team (Late st Contact Info) Description 07/02/2024 Telephone Cardiology, [facility] [address] [place] [address] [place], [address] [place] [address] Fax (Jaci) Allergies Active Allergy Reactions Criticality [...] Additional Information Patient not taking.Reported on 05/30/2024 [employer]. LivestockTo5minutesio w/Device KitIndications:Typ e 2 diabetes mellitus with [...] 1 Capsule by mouth at bedtime. Active [employer] In Vitro Strip (Glucose Blood)Indications: Type 2 [...] 2 with diabetic peripheral neuropathy ([facility]) Take 1 Capsule by mouth in the morning and 1 Capsule before bedtime. 60 Capsule 2 05/30/20 24 Active linaGLIPtin 5 MG Oral Tablet (Tradjenta) Take 1 Tablet by mouth in the morning. 90 Tablet 3 05/30/20 24 Active Albuterol Sulfate HFA 108 (90 Base) MCG/ACT Inhalation Aerosol SolutionIndication s:COPD, group B, by GOLD 2017 classification ([facility]) Inhale 2 Puffs by mouth every 4 hours as needed for Wheezing. 18 g 5 05/30/20 24 Active Carvedilol 12.5 MG Oral Tablet (Coreg)Indications :Hypertensive heart disease with heart failure ([facility]),HTN, goal below 140/90 TAKE ONE TABLET BY [...] PCI to [place] 2007, repeat cath in [place] 08/10/[address] [place] vessel disease with patent grafts Assessment & [...] - HUBERT o Class D - Inhaled Flciovqiobzzev-SJTB-PPVH Combination Inhaler (Trellegy) Self-Management plan o Prednisone [...] rinse after steroid. 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 12/07/2018 12/07/2018 OBSTRUCTIVE SLEEP APNEA, MODERATE: AHI 16 12/06/2018 02/07/2019 COPD, moderate 05/30/2018 01/10/2019 Overview: Per COPD GOLD Classification Atherosclerosis of [place] ar francisco of both lower extremities with [...] Electronic Medical Record Genetic Sleep Disorder Resea [facility] Other*[id number] 05/06/2011 03/03/2016 Dyspnea and respiratory abnormality 04/06/2011 01/12/2018 Overview (05/24/2017): ICD-10 update of inactive term ACTIVE CASE MANAGEMENT 07/30/200801/01 Overview (07/30/2008): Magda David RN [facility]- [phone] Cramp in limb 06/07/2003 10/17/2013 Atherosclerosis of [place] co ronary artery of [place] heart without angina pectoris HYPERLIPIDEMIA NEC-NOS 07/08 [...] file Not on file Not on file Electrophysiology Scientist Not on file Not on file Not [...] Date Author No 10/07/2020 11:38 PM Riddhi Zleaya RN documented in this encounter Miscellaneous Notes * Telephone Encounter - Jennifer Enamorado OSA - 07/03/2024 1:18 PM EST Person calling: Piper Relationship to patient: [facility] Phone/Fax to return call: [phone] Reason for call(brief): Fax - urgent Pharmacy: NA Provider Name:Dr Beatty Detailed message to office:[facility] calling to say they still did not receive the EKG - should have been faxed to [phone], Dr Fernández - he leaves at 3 pm today and the pt's surgery is tomorrow - please advise - contact office to assure they received fax * Telephone Encounter - Vickie Grubbs OSA - 07/03/2024 1:14 PM EST German from [facility] calling needs a copy of pt echo that was done on 06-21-2024 please fax to [phone] pt has surgery * Telephone Encounter - Talita Singletary CMA - 07/02/2024 3:03 PM EST Last EKG dated 05-17-2023 faxed as requested. * Telephone Encounter - Dai Bonilla OSA - 07/02/2024 1:24 PM EST Person calling: Piper Relationship to patient: Dr Fernández office Phone/Fax to return call: [phone] Reason for call(brief): fax ekg Pharmacy: Provider Name:Jaci Detailed message to office:Please fax pt last EKG to Dr Fernández office at [phone]. Thank you documented in this encounter Plan of Treatment Upcoming Encounters Date Type Department Care Team (Late st Contact Info) Description 08/13/2024 2:30 PM EST [facility], [facility] [address] [place] [address] [place], [place] [address] [place] [address] 08/20/2024 1:20 PM EST Office Visit Family Medicine [address] [place] [phone] Jae Anthony MD [address] [place] [address] [place] [address] 01/11/2025 1:20 PM EDT Office Visit Sleep Disorders Ctr [facility] [address] [phone] Payal Bonilla DO [address] [place] [address] 01/17/2025 1:00 PM EDT Office Visit Cardiology [address] [place] [address] Frances Hopkins, PASanthosh [address] [place] [address] Health Maintenance Due Date Last Done Comments [...] this encounter Medical Devices Implanted Type Area Stave Saw Operator Device Identifier Shelf Expiration Date Model / Serial / Lot Intraocular Posterior Chamber Lens Implanted:Qty: 1 on 12/05/2014 by Christiano Britt MD at OR [facility] Left: Eye BAUSCH & LOMB 06/30/2017 [id number] / [id number] / [id number] Mx60 24.0 Io Lens Implanted:Qty: 1 on 01/02/2015 by Christiano Britt MD at OR [facility] Right: Eye 04/29/2017 [id number] / [id number] / [id number] Clip Padlock Def Closure - [id number] Implanted:Qty: 1 on 01/17/2020 by Zay Goodman DO at ENDOSCOPY [facility] [employer] 09/27/2022 [id number] / / [id number] Duraclip - [id number] Implanted:Qty: 3 on 01/17/2020 by Zay Goodman DO at ENDOSCOPY [facility] ActualSun 03/18/2022 [id number] / / [id number] documented as of this encounter Advance Directives [...] the patient have Health Care Power of Ecologist? Yes, in chart and reviewed as current * Full Code Date Activated Date Inactivated Comments 06/09/2019 1:36 PM 06/11/2019 8:01 PM Question Answer Comments Discussion of Advance Directives occurred with: Not Discussed Does the patient have a Living Will? No Does the patient have Health Care Power of Attor kyle? No Care Teams Autopsy Assistant Relationship Specialty Start Date End Date Jae Anthony MD [address] [place] [address] [place] [address] PCP - General Family Medicine 10/06/12 documented as of this encounter
--- OUTSIDE RECORDS SUMMARY | 2024-07-06 12:31 | External Medical Summary | Summary of Care ---
Author Name Unknown Organization [facility] Address [address] [place] [address] Phone [phone] Care Team Providers Care Four Slide Machine Operator Name Role Phone Jae Anthony MD Primary Care Provide r Reason for Visit * Reason Onset Date Comments Medication Refill 06/25/2024 Encounter Details Date Type Department Care Team (Late st Contact Info) Description 06/25/2024 Refill Family Medicine [address] [phone] Jae Anthony MD [address] [place] [id number] Allergies Active Allergy Reactions Criticality Noted Date Comments Dextromethorphan-Guaifen esin Other (Please comment) Low 05/30/2024 Hydrocodone 02/15/2023 confusion Empagliflozin Rash High 12/06/2022 Severe Yeast Infection. Oxycodone 02/15/2023 Confusion Tramadol 02/15/2023 confusion documented as of this encounter (statuses as of 06/25/2024) Medications oxygen GAS 3LPM at rest and with exertion and 4.5 lpm bled through cpap 1 Each 06/25/20 19 Active Additional Information Patient taking differently: 3 [...] Additional Information Patient not taking.Reported on 05/30/2024 [employer] w/Device KitIndications:Typ e 2 diabetes mellitus with [...] 1 Capsule by mouth at bedtime. Active ioSemantics In Vitro Strip (Glucose Blood)Indications: Type 2 [...] extremity,DM type 2 with diabetic peripheral neuropathy (HCC) Take 1 Capsule by mouth in the morning and 1 Capsule before bedtime. 60 Capsule 2 05/30/20 24 Active linaGLIPtin 5 MG Oral Tablet (Tradjenta) Take 1 Tablet by mouth in the morning. 90 Tablet 3 05/30/20 24 Active Albuterol Sulfate HFA 108 (90 Base) MCG/ACT Inhalation Aerosol SolutionIndication s:COPD, group B, by GOLD 2017 classification ([facility]) Inhale 2 Puffs by mouth every 4 hours as needed for Wheezing. 18 g 5 05/30/20 24 Active Carvedilol 12.5 MG Oral Tablet (Coreg)Indications :Hypertensive heart disease with heart failure ([facility]),HTN, goal below 140/90 TAKE ONE TABLET BY MOUTH with food IN THE MORNING AND AT BEDTIME 180 Tablet 06/04/20 Active Cetirizine HCl 10 MG Oral Tablet (ZyrTEC) Take 0.5 Tablets by mouth in the morning. 30 Tablet 06/04/20 24 025 Active Pantoprazole Sodium 40 MG Oral Tablet Delayed Release (Protonix) Take 1 Tablet by mouth in the morning. In the morning.. 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 Test performed by Arielle FILLER PICKER CPFT Assessment & Plan (08/03/2023 4:07 PM EST): "RED FLAG" COPD symptoms: Change in mucous ("My normal mucous is clear but this is yellow and tastes terrible") Wheezing ("You can hear the whistling across the room") Medication Regimen All Classes - HUBERT Class D - Inhaled Dhtgrgqvzjjpnm-HWWB-UHYK Combination Inhaler (Harryllegy) Remote Patient Monitoring Vendor: No Connected RPM [...] as of this encounter (statuses as of 06/25/2024) Resolved Problems Problem Noted Date Diagnosed Date Resolved Date HTN, goal below 140/90 08/20/202108/03 Mixed incontinence 08/20/2021 Chronic calculous cholecystitis 10/07/2020 02/17/2021 Cholecystitis 11/27/2019 02/17/2021 Other artificial openings of gastrointestinal tract status 06/22/2019 08/20/2021 Acute calculous cholecystitis 06/09/2019 10/09/2019 Atherosclerotic heart diseas e of [place] coronary artery with unspecified angina pectoris 12/07/2018 12/07/2018 OBSTRUCTIVE SLEEP APNEA, MODERATE: AHI 16 12/06/2018 02/07/2019 COPD, moderate 05/30/2018 01/10/2019 Overview: Per COPD GOLD Classification Atherosclerosis of [place] ar [place] of both lower extremities with [...] Electronic Medical Record Genetic Sleep Disorder Resea [facility] Other*[id number] 05/06/2011 03/03/2016 Dyspnea and respiratory abnormality 04/06/2011 01/12/2018 Overview (05/24/2017): ICD-10 update of inactive term ACTIVE CASE MANAGEMENT 07/30/200801/01 Overview (07/30/2008): Magda David RN [facility]- [phone] Cramp in limb 06/07/2003 10/17/2013 Atherosclerosis of [place] co ronary artery of [place] heart without angina pectoris HYPERLIPIDEMIA NEC-NOS 07/08 Overview (07/08/2009): Per Lipid Taxonomy. OTHER AND UNSPECIFIED SLEEP APNEA 04/06/2011 Overview (04/06/2011): 04/05/11 d/c CPAP Benign prostatic hyperplasia 11/20/2021 Overview (05/02/2017): ICD-10 update of inactive term ICD-10 update of inactive term Carotid stenosis 06/08/2012 Aortic stenosis, severe 12/30 documented as of this encounter (statuses as of 06/25/2024) Immunizations Name Administration Dates Next Due COVID-19 [...] Valent (Prevnar) 11/29/2014 Pneumococcal Polysaccharide PPV23 (Pneumovax) 10/25/2018,08/01/2002 Seasonal Influenza, Quadriva lent Hd (Fluzone Hd) 06/16/2023,05/27/2022,05/04/2021 Seasonal Influenza, Quadriva lent, No Preserve, IM 04/23/2015 TDAP, Age 7 and older, IM (Adacel) [...] file Not on file Not on file Search Marketing Coordinator Not on file Not on file Not [...] encounter Miscellaneous Notes * Telephone Encounter - Jae Anthony MD - 06/25/2024 4:17 PM EST Signed Prescriptions: Disp Refills Pantoprazole Sodium 40 MG Oral Tablet Darlin*90 Tab*1 Sig: Take 1 Tablet by mouth in the morning. In the morning.. Authorizing Provider: JAE ANTHONY * Telephone Encounter - Marilee Brooks RN - 06/25/2024 3:56 PM ESTPending Prescriptions: Disp Refills Pantoprazole Sodium 40 MG Oral Tablet Darlin*90 Tab*1 Sig: Take 1 Tablet by mouth in the morning. In the morning.. * Telephone Encounter - Eva Holland OSA - 06/25/2024 3:01 PM EST Did you pend patient's preferred pharmacy and medication before forwarding?yes Pharmacy: [id number] [address] [facility] Pending Prescriptions: Disp Refills Pantoprazole Sodium 40 MG Oral Tablet Del*100 Ta*0 Sig: Take 1 Tablet by mouth in the morning. In the morning.. Last Visit: 03/26/2024 (in office), 02/15/2023 (telemedicine) Next Visit: 08/20/2024 If no future appointments scheduled, and last appointment is greater than a year ago, please schedule patient for a follow-up appointment Last date the medication was ordered: 06.25.24 Is this request for a controlled substance?No Urine Drug Screen:No results found. However, due to the size of the patient record, not all encounters were searched. Please check Results Review for a complete set of results. Patient Phone Numbers Labs: Lab Results Component Value Date/Time CREAT 1.3 (H) 03/26/2024 12:40 PM CREAT 0.77 05/12/2022 12:00 AM CREAT 0.7 04/17/2020 10:47 AM POTASSIUM 5.1 03/26/2024 12:40 PM POTASSIUM 4.5 05/12/2022 12:00 AM POTASSIUM 4.2 04/17/2020 10:47 AM TSH 4.06 03/26/2024 12:40 PM TSH 2.98 04/17/2020 10:47 AM LDL 61 06/06/2023 01:24 PM LDL 06/25/2020 02:10 AM Uninterpretable, recommend direct LDL cholesterol testing. LDL 83 06/25/2020 02:10 AM ALT 43 03/26/2024 12:40 PM ALT 22 04/17/2020 10:47 AM HGBA1C 8.1 (H) 03/26/2024 12:40 PM HGBA1C 7.9 (A) 05/12/2022 12:00 AM HGBA1C 6.8 (H) 04/17/2020 10:47 AM documented in this encounter Plan of Treatment Upcoming Encounters Date Type Department Care Team (Late st Contact Info) Description 07/02/2024 2:30 PM EST Home Visit [facility] [address] [address] Clau King, RN [address] [address] 08/20/2024 1:20 PM EST Office Visit Family Medicine [address] [place] [phone] Jae Anthony MD [address] [place] [address] [place] [address] 01/11/2025 1:20 PM EDT Office Visit [facility] Disorders Ctr [facility] [address] [place] [phone] Payal Bonilla, [address] [place] [address] 01/17/2025 1:00 PM EDT Office Visit Cardiology [address] [place] [address] [place] Hopkins, PASanthosh [address] [place] [address] Health Maintenance Due Date Last Done Comments [...] 05/27/2022, 05/04/2021, Additional history exists Albumin/Creatinine Ratio 06/06/20242 023, 07/08/2022, 05/04/2021, Additional history exists HbA1c 09/26/2024 03/26/2024, 03/0 12/2023, 06/06/2023, Additional history exists Diabetic Eye Exam 12/22/2024 12/23/2023, , 12/20/2022, Additional history exists TSH 03/26/2025 03/26/2024, 03/0 12/2023, 06/06/2023, Additional history exists O2 ASSESSMENT COMPLETED IN PAST YEAR FOR COPD 05/28/2025 05/28/2024 Pneumococcal Vaccine: 65+ Years Completed 10/25/2018, 11/29/2014, [...] this encounter Medical Devices Implanted Type Area Cushion Worker Device Identifier Shelf Expiration Date Model / Serial / Lot Intraocular Posterior Chamber Lens Implanted:Qty: 1 on 12/05/2014 by Christiano Britt MD at [facility] Left: Eye BAUSCH [employer] LOMB 06/30/2017 [id number] / [id number] / [id number] 24.0 Io Lens Implanted:Qty: 1 on 01/02/2015 by Christiano Britt MD at [facility] Right: Eye 04/29/2017 [id number] / [id number] / [id number] Clip Padlock Def Closure - [id number] Implanted:Qty: 1 on 01/17/2020 by Zay Goodman DO at [facility] 09/27/2022 [id number] / / [id number] Duraclip - [id number] Implanted:Qty: 3 on 01/17/2020 by Zay Goodman DO at [facility] CONMED ROSMERY 03/18/2022 [id number] / / [id number] documented as of this encounter Advance Directives [...] the patient have Health Care Power of Bear Keeper? Yes, in chart and reviewed as current * Full Code Date Activated Date Inactivated Comments 06/09/2019 1:36 PM 06/11/2019 8:01 PM Question Answer Comments Discussion of Advance Directives occurred with: Not Discussed Does the patient have a Living Will? No Does the patient have Health Care Power of Attor kyle? No Care Teams Four Slide Machine Operator Relationship Specialty Start Date End Date Jae Anthony MD [address] [place] [address] [place] [phone] PCP - General Family Medicine 10/06/12 documented as of this encounter
--- OUTSIDE RECORDS SUMMARY | 2024-07-06 12:31 | External Medical Summary | Summary of Care ---
Author Name Unknown Organization [facility] Address [address] [facility] [place] [address] Phone [phone] Care Team Providers Care Manager Merchandising Name Role Phone Jae Anthony MD Primary Care Provide r Reason for Visit * Reason Comments eRx-Medication Refill Encounter Details Date Type Department Care Team (Late st Contact Info) Description 06/24/2024 Refill [facility] at [address] [place] [address] Mendoza Clark MD [address] [place] [address] [place] [address] Allergies Active Allergy Reactions Criticality Noted Date Comments Dextromethorphan-Guaifen esin Other (Please comment) Low 05/30/2024 Hydrocodone 02/15/2023 confusion Empagliflozin Rash High 12/06/2022 Severe Yeast Infection. Oxycodone 02/15/2023 Confusion Tramadol 02/15/2023 confusion documented as of this encounter (statuses as of 06/25/2024) Medications oxygen GAS 3LPM at rest and with exertion and 4.5 lpm bled through cpap 1 Each 06/25/ 019 Active Additional Information Patient taking differently: 3 LPM as needed and 3.5 lpm bled through cpap, Reported on 05/30/2024 DIURETIC TITRATION PLAN If no improvement on day 3, contact heart failure managing provider. 1 Each 020 Active CPAP every night at bedtime. Active Multivitamin Adult Oral Tablet Take 1 Tab by mouth daily. Active Nitroglycerin 0.4 MG Sublingual Tablet Sublingual (Nitrostat) TAKE 1 TAB UNDER THE TOUNGE NEEDED FOR PAIN DIRECTED 25 Tablet 5 022 Active Additional Information Patient not taking.Reported on 05/30/2024 ChatalogTouch Verio w/Device KitIndications:Ty pe 2 diabetes mellitus with hemoglobin A1c goal of less than 8.0% (HCC) Test once a day E11.9 1 Kit 023 Active LancetsIndication s:Type 2 diabetes mellitus with hemoglobin A1c goal of less than 8.0% (HCC) Test once daily as directed E11.9 100 Each 5 023 Active Acetaminophen 500 MG Oral Tablet (Tylenol) Take 1 Tablet by mouth in the morning and 1 Tablet at noon and 1 Tablet in the evening and 1 Tablet before bedtime. 100 Tablet 023 Active Magnesium Oxide 400 MG Oral Capsule Take 1 Capsule by mouth in the morning and 1 Capsule before bedtime. 023 Active Melatonin 10 MG Oral Capsule Take 1 Capsule by mouth at bedtime. Active Docusate Sodium 100 MG Oral CapsuleIndication s:takes 2 at bedtime Take 2 Capsules by mouth at bedtime as needed. Active Biofreeze 5 % External Patch (Menthol (Topical Analgesic)) Apply topically to affected area. Apply 1 patch topically and change once daily as needed Active Tamsulosin HCl 0.4 MG Oral Capsule (Flomax) Take 1 Capsule by mouth at bedtime. Active [employer] In Vitro Strip (Glucose Blood)Indications :Type 2 diabetes mellitus with hemoglobin A1c goal of less than 8.0% (HCC) test once daily e11.9 100 Strip 3 024 Active Rosuvastatin Calcium 40 MG Oral Tablet (Crestor)Indicati ons:Dyslipidemia, goal LDL below 70 TAKE ONE TABLET BY MOUTH AT BEDTIME 90 Tablet 1 024 Active Clopidogrel Bisulfate 75 MG Oral Tablet (pLAVix) Take 1 Tablet by mouth in the morning. 90 Tablet 1 024 Active Vitamin B-12 100 MCG Oral Tablet (vitamin B-12) TAKE ONE TABLET BY MOUTH IN THE MORNING 90 Tablet 1 Active Losartan Potassium 50 MG Oral Tablet (Cozaar)Indicatio ns:Hypertensive heart disease with heart failure (HCC),HTN, goal below 140/90 Take 1 Tablet by mouth in the morning. 90 Tablet 1 Active Potassium Chloride Kay ER 10 MEQ Oral Tablet Extended ReleaseIndication s:Hypertensive heart disease with heart failure (HCC) Take 1 Tablet by mouth in the morning. In the morning.. 90 Tablet Active Levothyroxine Sodium 25 MCG Oral Tablet (Levoxyl)Indicati ons:Acquired hypothyroidism (at least 30 min prior to breakfast or other meds)TAKE ONE TABLET BY MOUTH IN THE MORNING at least 30 minutes before breakfast or other medications 90 Tablet 1 Active metFORMIN HCl 500 MG Oral Tablet (Glucophage)Indic ations:DM type 2 with diabetic peripheral neuropathy (HCC) Take 2 Tablets by mouth daily with breakfast AND 1 Tablet daily with dinner. 270 Tablet 1 Active Trelegy Ellipta 100-62.5-25 MCG/ACT Aerosol Powder Breath Activated (Fluticasone-Umec lidinium-Vilanter ol)Indications:br eathing inhale 1 puff daily 60 Blister Dosing Unit 5 Active methylPREDNISolon e 4 MG Oral Tablet Therapy Pack (Medrol Dosepack) Take as per instructions on package. 21 Each Active Torsemide 20 MG Oral Tablet (Demadex)Indicati ons:Diastolic dysfunction TAKE ONE TABLET BY MOUTH EVERY DAY 100 Tablet Active Albuterol Sulfate (2.5 MG/3ML) 0.083% Inhalation Nebulization Solution (Proventil)Indica tions:Viral respiratory illness Inhale 1 Vial via nebulizer every 4 hours as needed for Wheezing or Shortness of Breath. 120 mL Active Ondansetron 4 MG Oral Tablet Disintegrating (Zofran) Place 1 Tablet on tongue every 6 hours as needed for Nausea or Vomiting. dissolve on tongue. 20 Tablet Active Fenofibrate 48 MG Oral Tablet (Tricor) Take 1 Tablet by mouth daily with dinner. 90 Tablet Active Pregabalin 100 MG Oral Capsule (Lyrica)Indicatio ns:Lumbar back pain with radiculopathy affecting lower extremity,DM type 2 with diabetic peripheral neuropathy ([facility]) Take 1 Capsule by mouth in the morning and 1 Capsule before bedtime. 60 Capsule 2 Active linaGLIPtin 5 MG Oral Tablet (Tradjenta) Take 1 Tablet by mouth in the morning. 90 Tablet 3 Active Albuterol Sulfate HFA 108 (90 Base) MCG/ACT Inhalation Aerosol SolutionIndicatio ns:COPD, group B, by GOLD 2017 classification ([facility]) Inhale 2 Puffs by mouth every 4 hours as needed for Wheezing. 18 g 5 Active Carvedilol 12.5 MG Oral Tablet (Coreg)Indication s:Hypertensive heart disease with heart failure ([facility]),HTN, goal below 140/90 TAKE ONE TABLET BY MOUTH with food IN THE MORNING AND AT BEDTIME 180 Tablet Active Cetirizine HCl 10 MG Oral Tablet (ZyrTEC) Take 0.5 Tablets by mouth in the morning. 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 Test performed by Arielle JV BASEBALL COACH CPFT Assessment & Plan (08/03/2023 4:07 PM EST): "RED FLAG" COPD symptoms: Change in mucous ("My normal mucous is clear but this is yellow and tastes terrible") Wheezing ("You can hear the whistling across the room") Medication Regimen All Classes - HUBERT Class D - Inhaled Laqatgueardogi-RWVZ-EUPH Combination Inhaler (Trellegy) Remote Patient Monitoring Vendor: [...] to severe snoring 2005 -- UPPP AHP 4/16/14 nocturnal ox on 3 LPM looks good [...] 06/09/2019 10/09/2019 Atherosclerotic heart diseas e of [place] coronary artery with unspecified angina pectoris 12/07/2018 12/07/2018 OBSTRUCTIVE SLEEP APNEA, MODERATE: AHI 16 12/06/2018 02/07/2019 COPD, moderate 05/30/2018 01/10/2019 Overview: Per COPD GOLD Classification Atherosclerosis of [place] ar [place] of both lower extremities with [...] Electronic Medical Record Genetic Sleep Disorder Resea [facility] Other*[id number] 05/06/2011 03/03/2016 Dyspnea and respiratory abnormality 04/06/2011 01/12/2018 Overview (05/24/2017): ICD-10 update of inactive term ACTIVE CASE MANAGEMENT 07/30/200801/01 Overview (07/30/2008): Magda David RN [facility]- [phone] Cramp in limb 06/07/2003 10/17/2013 Atherosclerosis of [place] co ronary artery of [place] heart without angina pectoris HYPERLIPIDEMIA NEC-NOS 07/08 [...] file Not on file Not on file Business Functional Analyst Not on file Not on file Not [...] encounter Miscellaneous Notes * Telephone Encounter - Juan Ramon Evans MD - 06/25/2024 7:47 AM ESTSigned Prescriptions: Disp Refills Pantoprazole Sodium 40 MG Oral Tablet Darlin*100 Ta*0 Sig: TAKE ONE TABLET BY MOUTH IN THE MORNINGAuthorizing Provider: JUAN RAMON EVANS documented in this encounter Plan of Treatment Upcoming Encounters Date Type Department Care Team (Late st Contact Info) Description 07/02/2024 2:30 PM EST Home Visit [facility] at [facility] [address] [address] Clau King RN [address] [place] [address] 08/20/2024 1:20 PM EST Office Visit Family Medicine [address] [place] [phone] Jae Anthony MD [address] [place] [address] [place] [address] 01/11/2025 1:20 PM EDT Office Visit [facility] Disorders Ctr [facility] [address] [phone] Payal Bonilla DO [address] [address] 01/17/2025 1:00 PM EDT Office Visit Cardiology [address] [place] [address] [place] Hopkins PA-C [address] [phone] Health Maintenance Due Date Last Done Comments [...] this encounter Medical Devices Implanted Type Area Organic Extractions Technician Device Identifier Shelf Expiration Date Model / Serial / Lot Intraocular Posterior Chamber Lens Implanted:Qty: 1 on 12/05/2014 by Christiano Britt MD at [facility] Left: Eye BAUSCH & LOMB 06/30/2017 [id number] / [id number] / [id number] 24.0 Io Lens Implanted:Qty: 1 on 01/02/2015 by Christiano Britt MD at [facility] Right: Eye 04/29/2017 [id number] / [id number] / [id number] Clip Padlock Def Closure - [id number] Implanted:Qty: 1 on 01/17/2020 by Zay Goodman DO at [facility] 09/27/2022 [id number] / / [id number] Duraclip - [id number] Implanted:Qty: 3 on 01/17/2020 by Zay Goodman DO at [facility] CONMED ROSMERY 03/18/2022 [id number] / / [id number] documented as of this encounter Advance Directives [...] the patient have Health Care Power of Compounding Scaler? Yes, in chart and reviewed as current * Full Code Date Activated Date Inactivated Comments 06/09/2019 1:36 PM 06/11/2019 8:01 PM Question Answer Comments Discussion of Advance Directives occurred with: Not Discussed Does the patient have a Living Will? No Does the patient have Health Care Power of Attor kyle? No Care Teams Manager Merchandising Relationship Specialty Start Date End Date Jae Anthony MD [address] [place] [address] [place] [address] PCP - General Family Medicine 10/06/12 documented as of this encounter
--- OUTSIDE RECORDS SUMMARY | 2024-07-06 12:31 | External Medical Summary | Summary of Care ---
Author Name Unknown Organization [facility] Address [address] [address] Phone [phone] Care Team Providers Care Chemists Name Role Phone Jae Anthony MD Primary Care Provide r Reason for Visit * Reason Onset Date Comments Fax 07/02/2024 Jaci Encounter Details Date Type Department Care Team (Late st Contact Info) Description 07/02/2024 Telephone Cardiology, [facility] [address] [place] [address] [place], [address] [place] [address] Fax (Jaci) Allergies Active Allergy Reactions Criticality Noted Date Comments Dextromethorphan-Guaifen esin Other (Please comment) Low 05/30/2024 Hydrocodone 02/15/2023 confusion Empagliflozin Rash High 12/06/2022 Severe Yeast Infection. Oxycodone 02/15/2023 Confusion Tramadol 02/15/2023 confusion documented as of this encounter (statuses as of 07/02/2024) Medications oxygen GAS 3LPM at rest and [...] Additional Information Patient not taking.Reported on 05/30/2024 6WavesTouchooseio w/Device KitIndications:Typ e 2 diabetes mellitus with [...] 1 Capsule by mouth at bedtime. Active [employer] In Vitro Strip (Glucose Blood)Indications: Type 2 [...] extremity,DM type 2 with diabetic peripheral neuropathy ([facility]) Take 1 Capsule by mouth in the morning and 1 Capsule before bedtime. 60 Capsule 2 05/30/20 24 Active linaGLIPtin 5 MG Oral Tablet (Tradjenta) Take 1 Tablet by mouth in the morning. 90 Tablet 3 05/30/20 24 Active Albuterol Sulfate HFA 108 (90 Base) MCG/ACT Inhalation Aerosol SolutionIndication s:COPD, group B, by GOLD 2017 classification ([facility]) Inhale 2 Puffs by mouth every 4 hours as needed for Wheezing. 18 g 5 05/30/20 24 Active Carvedilol 12.5 MG Oral Tablet (Coreg)Indications :Hypertensive heart disease with heart failure ([facility]),HTN, goal below 140/90 TAKE ONE [...] as of this encounter (statuses as of 07/02/2024) Active Problems Problem Noted Date Diagnosed Date [...] PCI to Lcx 2007, repeat cath in [place] 08/10/2019 showed severe [place] vessel disease with patent grafts Assessment & [...] - HUBERT o Class D - Inhaled Udvbowmnxlglsa-TZAA-LIZT Combination Inhaler (Trellegy) Self-Management plan o Prednisone [...] rinse after steroid. Test performed by Arielle INTERNATIONAL SALES MANAGER CPFT Assessment & Plan (08/03/2023 4:07 PM EST): "RED FLAG" COPD symptoms: Change in mucous ("My normal mucous is clear but this is yellow and tastes terrible") Wheezing ("You can hear the whistling across the room") Medication Regimen All Classes - HUBERT Class D - Inhaled Pfktswfupuayjj-BTNE-TLRU Combination Inhaler (Trellegy) Remote Patient Monitoring Vendor: [...] 81%, time <89% 1.7 mins, mean 93%, MIONR 6.1 05/13/11 -- 100% compliant on 2 [...] as of this encounter (statuses as of 07/02/2024) Resolved Problems Problem Noted Date Diagnosed Date Resolved Date HTN, goal below 140/90 08/20/202108/03 Mixed incontinence 08/20/2021 Chronic calculous cholecystitis 10/07/2020 02/17/2021 Cholecystitis 11/27/2019 02/17/2021 Other artificial openings of gastrointestinal tract status 06/22/2019 08/20/2021 Acute calculous cholecystitis 06/09/2019 10/09/2019 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- [phone] Cramp in limb 06/07/2003 10/17/2013 Atherosclerosis of [place] co ronary artery of [place] heart without angina pectoris HYPERLIPIDEMIA NEC-NOS 07/08 Overview (07/08/2009): Per Lipid Taxonomy. OTHER AND UNSPECIFIED SLEEP APNEA 04/06/2011 Overview (04/06/2011): 04/05/11 d/c CPAP Benign prostatic hyperplasia 11/20/2021 Overview (05/02/2017): ICD-10 update of inactive term ICD-10 update of inactive term Carotid stenosis 06/08/2012 Aortic stenosis, severe 12/30 documented as of this encounter (statuses as of 07/02/2024) Immunizations Name Administration Dates Next Due COVID-19 [...] file Not on file Not on file Grain Combiner Not on file Not on file Not [...] Miscellaneous Notes * Telephone Encounter - Talita Singletary, COLLEGE OR UNIVERSITY BUSINESS MANAGER - 07/02/2024 3:03 PM EST Last EKG dated 05-17-2023 faxed as requested. * Telephone Encounter - Dai Bonilla OSA - 07/02/2024 1:24 PM EST Person calling: Piper Relationship to patient: Dr Fernández office Phone/Fax to return call: [phone] Reason for call(brief): fax ekg Pharmacy: Provider Name:Jaci Detailed message to office:Please fax pt last EKG to Dr Fernández office at [phone]. Thank you documented in this encounter Plan of Treatment Upcoming Encounters Date Type Department Care Team (Late st Contact Info) Description 08/13/2024 2:30 PM EST Home Visit [facility] [address] [address] Clau King RN [address] [place] [address] 08/20/2024 1:20 PM EST Office Visit Family Medicine [address] [place] [phone] Jae Anthony MD [address] [place] [address] [place] [address] 01/11/2025 1:20 PM EDT Office Visit Sleep Disorders Ctr [facility] [address] [phone] Payal Bonilla DO [address] [place] [address] 01/17/2025 1:00 PM EDT Office Visit Cardiology [address] [place] [address] Frances Hopkins PA-C [address] [place] [address] Health Maintenance Due Date Last Done Comments [...] this encounter Medical Devices Implanted Type Area Science Liaison Device Identifier Shelf Expiration Date Model / Serial / Lot Intraocular Posterior Chamber Lens Implanted:Qty: 1 on 12/05/2014 by Christiano Britt MD at OR [facility] Left: Eye BAUSCH & LOMB 06/30/2017 [id number] / [id number] / [id number] Mx60 24.0 Io Lens Implanted:Qty: 1 on 01/02/2015 by Christiano Britt MD at [facility] Right: Eye 04/29/2017 [id number] / [id number] / [id number] Clip Padlock Def Closure - [id number] Implanted:Qty: 1 on 01/17/2020 by Zay Goodman DO at ENDOSCOPY [facility] [employer] 09/27/2022 [id number] / / [id number] Duraclip - [id number] Implanted:Qty: 3 on 01/17/2020 by Zay Goodman DO at [facility]COPY [facility] CONMED ROSMERY 03/18/2022 [id number] / / [id number] documented as of this encounter Advance Directives [...] the patient have Health Care Power of Paste Up Worker? Yes, in chart and reviewed as current * Full Code Date Activated Date Inactivated Comments 06/09/2019 1:36 PM 06/11/2019 8:01 PM Question Answer Comments Discussion of Advance Directives occurred with: Not Discussed Does the patient have a Living Will? No Does the patient have Health Care Power of Attor kyle? No Care Teams Chemists Relationship Specialty Start Date End Date Jae Anthony MD [address] [place] [address] [place] [phone] PCP - General Family Medicine 10/06/12 documented as of this encounter
--- OUTSIDE RECORDS SUMMARY | 2024-07-06 12:31 | External Medical Summary | Summary of Care ---
Author Name Unknown Organization [facility] Address [address] [address] Phone [phone] Care Team Providers Care Instrument Repairer Name Role Phone Jae Anthony MD Primary Care Provide r Reason for Visit * Reason Onset Date Comments Fax 07/02/2024 Jaci Encounter Details Date Type Department Care Team (Late st Contact Info) Description 07/02/2024 Telephone Cardiology, [facility] [address] [place] [address] [place], [address] [place] [address] Fax (Jaci) Allergies Active Allergy Reactions Criticality [...] Additional Information Patient not taking.Reported on 05/30/2024 SimpliFieldToCyto Wave Technologiesio w/Device KitIndications:Typ e 2 diabetes mellitus with [...] 1 Capsule by mouth at bedtime. Active [employer] In Vitro Strip (Glucose Blood)Indications: Type 2 [...] 2 with diabetic peripheral neuropathy ([facility]) Take 1 Capsule by mouth in the morning and 1 Capsule before bedtime. 60 Capsule 2 05/30/20 24 Active linaGLIPtin 5 MG Oral Tablet (Tradjenta) Take 1 Tablet by mouth in the morning. 90 Tablet 3 05/30/20 24 Active Albuterol Sulfate HFA 108 (90 Base) MCG/ACT Inhalation Aerosol SolutionIndication s:COPD, group B, by GOLD 2017 classification ([facility]) Inhale 2 Puffs by mouth every 4 hours as needed for Wheezing. 18 g 5 05/30/20 24 Active Carvedilol 12.5 MG Oral Tablet (Coreg)Indications :Hypertensive heart disease with heart failure ([facility]),HTN, goal below 140/90 TAKE ONE [...] PCI to Lcx 2007, repeat cath in [place] 08/10/2019 showed severe [place] vessel disease with patent grafts Assessment & [...] - HUBERT o Class D - Inhaled Bmvbmxrymjwemr-XLKE-WUYB Combination Inhaler (Trellegy) Self-Management plan o Prednisone [...] rinse after steroid. 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 12/07/2018 12/07/2018 OBSTRUCTIVE SLEEP APNEA, MODERATE: AHI 16 12/06/2018 02/07/2019 COPD, moderate 05/30/2018 01/10/2019 Overview: Per COPD GOLD Classification Atherosclerosis of [place] ar [place] of both lower extremities with [...] Electronic Medical Record Genetic Sleep Disorder Resea [facility] Other*[id number] 05/06/2011 03/03/2016 Dyspnea and respiratory abnormality 04/06/2011 01/12/2018 Overview (05/24/2017): ICD-10 update of inactive term ACTIVE CASE MANAGEMENT 07/30/200801/01 Overview (07/30/2008): Magda David RN [facility]- [phone] Cramp in limb 06/07/2003 10/17/2013 Atherosclerosis of [place] co ronary artery of [place] heart without angina pectoris HYPERLIPIDEMIA NEC-NOS 07/08 [...] file Not on file Not on file Sas Sql Developer Not on file Not on file Not [...] EST Person calling: Piper Relationship to patient: [facility] Phone/Fax to return call: [phone] Reason for call(brief): Fax - urgent Pharmacy: NA Provider Name:Dr [place] Detailed message to office:[facility] calling to say they still did not receive the EKG - should have been faxed to [phone], Dr Fernández - he leaves at 3 pm today and the pt's surgery is tomorrow - please advise - contact office to assure they received fax * Telephone Encounter - Talita Singletary CMA - 07/02/2024 3:03 PM EST Last EKG dated 05-17-2023 faxed as requested. * Telephone Encounter - Dai Bonilla OSA - 07/02/2024 1:24 PM EST Person calling: Piper Relationship to patient: Dr Fernández office Phone/Fax to return call: [phone] Reason for call(brief): fax ekg Pharmacy: Provider Name:Jaci Detailed message to office:Please fax pt last EKG to Dr Fernández office at [phone]. Thank you documented in this encounter Plan of Treatment Upcoming Encounters Date Type Department Care Team (Late st Contact Info) Description 08/13/2024 2:30 PM EST Home Visit [facility] [address] [address] Clau King, YENNY [address] [place] [address] 08/20/2024 1:20 PM EST Office Visit Family Medicine [address] [place] [phone] Jae Anthony MD [address] [place] [address] [place] [address] 01/11/2025 1:20 PM EDT Office Visit Sleep Disorders Ctr [facility] [address] [place] [phone] Payal Bonilla, [address] [place] [address] 01/17/2025 1:00 PM EDT Office Visit Cardiology [address] [place] [address] Frances Hopkins, CARTER [address] [place] [address] Health Maintenance Due Date Last Done Comments [...] this encounter Medical Devices Implanted Type Area Dye Penetrant Testing Technician Device Identifier Shelf Expiration Date Model / Serial / Lot Intraocular Posterior Chamber Lens Implanted:Qty: 1 on 12/05/2014 by Christiano Britt MD at OR [facility] Left: Eye BAUSCH & LOMB 06/30/2017 [id number] / [id number] / [id number] Mx60 24.0 Io Lens Implanted:Qty: 1 on 01/02/2015 by Christiano Britt MD at [facility] Right: Eye 04/29/2017 [id number] / [id number] / [id number] Clip Padlock Def Closure - [id number] Implanted:Qty: 1 on 01/17/2020 by Zay Goodman DO at ENDOSCOPY [facility] [employer] 09/27/2022 [id number] / / [id number] Duraclip - [id number] Implanted:Qty: 3 on 01/17/2020 by Zay Goodman DO at ENDOS[facility] CONMED ROSMERY 03/18/2022 [id number] / / [id number] documented as of this encounter Advance Directives [...] the patient have Health Care Power of Helpdesk Specialist? Yes, in chart and reviewed as current * Full Code Date Activated Date Inactivated Comments 06/09/2019 1:36 PM 06/11/2019 8:01 PM Question Answer Comments Discussion of Advance Directives occurred with: Not Discussed Does the patient have a Living Will? No Does the patient have Health Care Power of Attor kyle? No Care Teams Instrument Repairer Relationship Specialty Start Date End Date Jae Anthony MD [address] [place] [address] [place] [address] PCP - General Family Medicine 10/06/12 documented as of this encounter
--- OUTSIDE RECORDS SUMMARY | 2024-07-06 12:31 | External Medical Summary | Summary of Care ---
Author Name Unknown Organization [facility] Address [address] [address] Phone [phone] Care Team Providers Care Sugar House Supervisor Name Role Phone Jae Anthony MD Primary Care Provide r Encounter Details Date Type Department Care Team (Late st Contact Info) Description 07/02/2024 2:30 PM EST [facility] [address] [place] [address] Clau King, RN [address] [place] [address] Allergies Active Allergy Reactions Criticality Noted Date [...] Additional Information Patient not taking.Reported on 05/30/2024 CoursmosTouch Verio w/Device KitIndications:Typ e 2 diabetes mellitus with [...] 1 Capsule by mouth at bedtime. Active [employer] In Vitro Strip (Glucose Blood)Indications: Type 2 [...] extremity,DM type 2 with diabetic peripheral neuropathy ([facility]) Take 1 Capsule by mouth in the morning and 1 Capsule before bedtime. 60 Capsule 2 05/30/20 24 Active linaGLIPtin 5 MG Oral Tablet (Tradjenta) Take 1 Tablet by mouth in the morning. 90 Tablet 3 05/30/20 24 Active Albuterol Sulfate HFA 108 (90 Base) MCG/ACT Inhalation Aerosol SolutionIndication s:COPD, group B, by GOLD 2017 classification ([facility]) Inhale 2 Puffs by mouth every 4 hours as needed for Wheezing. 18 g 5 05/30/20 24 Active Carvedilol 12.5 MG Oral Tablet (Coreg)Indications :Hypertensive heart disease with heart failure ([facility]),HTN, goal below 140/90 TAKE ONE TABLET [...] PCI to Lcx 2007, repeat cath in [place] 08/10/2019 showed severe [place] vessel disease with patent grafts Assessment & [...] - HUBERT o Class D - Inhaled Ssvupkoijlhihv-SBGR-XRXV Combination Inhaler (Trellegy) Self-Management plan o Prednisone [...] rinse after steroid. 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 12/07/2018 12/07/2018 OBSTRUCTIVE SLEEP APNEA, MODERATE: AHI 16 12/06/2018 02/07/2019 COPD, moderate 05/30/2018 01/10/2019 Overview: Per COPD GOLD Classification Atherosclerosis of [place] ar [place] of both lower extremities with [...] Electronic Medical Record Genetic Sleep Disorder Resea [facility] Other*[id number] 05/06/2011 03/03/2016 Dyspnea and respiratory abnormality 04/06/2011 01/12/2018 Overview (05/24/2017): ICD-10 update of inactive term ACTIVE CASE MANAGEMENT 07/30/200801/01 Overview (07/30/2008): Magda David RN [facility]- [phone] Cramp in limb 06/07/2003 10/17/2013 Atherosclerosis of [place] co ronary artery of [place] heart without angina pectoris HYPERLIPIDEMIA NEC-NOS 07/08 [...] CG/0.3 mL, 12 YRS AND ABOVE, IM (Convertigo-Comirnaty) 06/16/2023 COVID-19, mRNA, LNP-s, PF, B ooster, [...] file Not on file Not on file Plate Finisher Not on file Not on file Not on file documented as of this encounter Last Filed Vital Signs Vital Sign Reading Time Taken Comments Blood Pressure 124/58 07/02/2024 12:22 PM EST Pulse 68 07/02/2024 12:22 PM EST Temperature 36 C (96.8 F) 07/02/2024 12:22 PM EST Respiratory Rate 18 07/02/2024 12:22 PM EST Oxygen Saturation 90% 07/02/2024 12:22 PM EST Inhaled Oxygen Concentration - - Weight - - Height - - Body Mass Index - - documented in this encounter Functional Status * Are you [...] Riddhi Zelaya RN documented in this encounter Progress Notes * Clau King RN - 07/02/2024 12:07 PM EST Current Concerns: Patient seen of for follow up- Medical hx includes: CVA- left hemiparesis, PVD Daughter present for visit Scheduled for Right TCAR 07/04- Dr. [place]- [facility] Patient reports doing well. VS wnl Lungs clear bilaterally Nonproductive cough No LE edema noted Voiding without difficulty Bowels wnl- per report Appetite good Taking fluids well Denies pain Tens unit to lower back daily Physical Exam: Physical Exam Constitutional: Appearance: Normal appearance. Cardiovascular: Rate and Rhythm: Normal rate. Rhythm irregular. Pulses: Normal pulses. Pulmonary: Effort: Pulmonary effort is normal. Breath sounds: Normal breath sounds. Abdominal: General: Bowel sounds are normal. Palpations: Abdomen is soft. Musculoskeletal: General: Normal range of motion. Skin: General: Skin is warm and dry. Capillary Refill: Capillary refill takes 2 to 3 seconds. Neurological: General: No focal deficit present. Mental Status: He is alert and oriented to person, place, and time. Psychiatric: Mood and Affect: Mood normal. Behavior: Behavior normal. Review of Systems: Review of Systems Constitutional: Negative. Respiratory: Positive for cough. Cardiovascular: Negative. Gastrointestinal: Negative. Genitourinary: Negative. Musculoskeletal: Positive for back pain and gait problem. Skin: Negative. Hematological: Negative. Psychiatric/Behavioral: Negative. Care Plan Goal Progress: Patient will remain free of falls. (Progressing) Start: 07/02/24 Expected End: 10/30/24 GS - Patient/caregiver will verbalize signs/symptoms of a COPD exacerbation. (Progressing) Start: 07/02/24 Expected End: 10/30/24 GS - Patient/caregiver will verbalize strategies to cope with COPD and its symptoms. (Progressing) Start: 07/02/24 Expected End: 10/30/24 Orders Placed: No orders of the defined types were placed in this encounter. Medications Given: Care Gaps: Care Gaps Care gaps closed this contact: Education (07/02/24 1238) Type of education: Clinical/disease (07/02/24 1238) documented in this encounter Plan of Treatment Upcoming Encounters Date Type Department Care Team (Late st Contact Info) Description 08/13/2024 2:30 PM EST Home Visit [facility] at [place] [address] [address] Clau King, RN [address] [address] 08/20/2024 1:20 PM EST Office Visit Family Medicine [address] [place] [phone] Jae Anthony MD [address] [place] [address] [place] [address] 01/11/2025 1:20 PM EDT Office Visit [facility] Disorders Ctr [facility] [address] [phone] Payal Bonilla DO [address] [address] 01/17/2025 1:00 PM EDT Office Visit Cardiology [address] [place] [address] Frances Hopkins PA-C [address] [place] [address] Health Maintenance Due Date Last Done Comments [...] this encounter Medical Devices Implanted Type Area In Home Tutor Device Identifier Shelf Expiration Date Model / Serial / Lot Intraocular Posterior Chamber Lens Implanted:Qty: 1 on 12/05/2014 by Christiano Britt MD at OR [facility] Left: Eye BAUSCH & LOMB 06/30/2017 [id number] / [id number] / [id number] Mx60 24.0 Io Lens Implanted:Qty: 1 on 01/02/2015 by Christiano Britt MD at OR [facility] Right: Eye 04/29/2017 [id number] / [id number] / [id number] Clip Padlock Def Closure - [id number] Implanted:Qty: 1 on 01/17/2020 by Zay Goodman DO at [facility] [employer] 09/27/2022 [id number] / / [id number] Duraclip - [id number] Implanted:Qty: 3 on 01/17/2020 by Zay Goodman DO at [facility] CONMED ROSMERY 03/18/2022 [id number] / / [id number] documented as of this encounter Advance Directives [...] the patient have Health Care Power of Hairspring Vibrator? Yes, in chart and reviewed as current * Full Code Date Activated Date Inactivated Comments 06/09/2019 1:36 PM 06/11/2019 8:01 PM Question Answer Comments Discussion of Advance Directives occurred with: Not Discussed Does the patient have a Living Will? No Does the patient have Health Care Power of Attor kyle? No Care Teams Sugar House Supervisor Relationship Specialty Start Date End Date Jae Anthony MD [address] [place] [address] [place] [phone] PCP - General Family Medicine 10/06/12 documented as of this encounter
--- OUTSIDE RECORDS SUMMARY | 2024-07-06 12:32 | External Medical Summary | Summary of Care ---
Author Name Unknown Organization [facility] [address] [facility] [facility] [address] Phone [phone] Care Team Providers Care Safety Inspector Name Role Phone Jae Anthony MD Primary Care Provide r Reason for Visit * Reason Onset Date Comments Test Results 06/22/2024 Encounter Details Date Type Department Care Team (Late st Contact Info) Description 06/22/2024 Telephone Cardiology, [facility] [address] [facility] [place] [address] Suzi Garcia PA-C [address] [place] [address] [place] [id number] Test Results Allergies Active Allergy Reactions Criticality Noted Date Comments Dextromethorphan-Guaifen esin Other (Please comment) Low 05/30/2024 Hydrocodone 02/15/2023 confusion Empagliflozin Rash High 12/06/2022 Severe Yeast Infection. Oxycodone 02/15/2023 Confusion Tramadol 02/15/2023 confusion documented as of this encounter (statuses as of 06/22/2024) Medications oxygen GAS 3LPM at rest and [...] Additional Information Patient not taking.Reported on 05/30/2024 [employer] w/Device KitIndications:Typ e 2 diabetes mellitus with [...] 1 Capsule by mouth at bedtime. Active [place] In Vitro Strip (Glucose Blood)Indications: Type 2 [...] morning. 90 Tablet 1 03/29/20 24 Active Pantoprazole Sodium 40 MG Oral Tablet Delayed Release (Protonix) TAKE ONE TABLET BY MOUTH IN THE MORNING 100 Tablet 03/27/20 24 Active Potassium Chloride Kay ER 10 [...] s:COPD, group B, by GOLD 2017 classification ([facility]) Inhale 2 Puffs by mouth every 4 hours as needed for Wheezing. 18 g 5 05/30/20 24 Active Carvedilol 12.5 MG Oral Tablet (Coreg)Indications :Hypertensive heart disease with heart failure ([facility]),HTN, goal below 140/90 TAKE ONE TABLET BY MOUTH with food IN THE MORNING AND AT BEDTIME 180 Tablet 06/04/20 24 Active Cetirizine HCl 10 MG Oral Tablet (ZyrTEC) Take 0.5 Tablets by mouth in the morning. 30 Tablet 06/04/20 24 025 Active documented as of this encounter (statuses as of 06/22/2024) Active Problems Problem Noted Date Diagnosed Date [...] PCI to Lcx 2007, repeat cath in [place] 08/10/2019 showed severe [place] vessel disease with patent grafts Assessment & [...] - HUBERT o Class D - Inhaled Kgrztamvtkzmyd-PPWT-TJRJ Combination Inhaler (Trellegy) Self-Management plan o Prednisone [...] rinse after steroid. 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 02/17/2021 Cholecystitis 11/27/2019 02/17/2021 Other artificial openings of gastrointestinal tract status 06/22/2019 08/20/2021 Acute calculous cholecystitis 06/09/2019 10/09/2019 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 12/07/2018 12/07/2018 OBSTRUCTIVE SLEEP APNEA, MODERATE: AHI 16 12/06/2018 02/07/2019 COPD, moderate 05/30/2018 01/10/2019 Overview: Per COPD GOLD Classification Atherosclerosis of [place] ar [place] of both lower extremities with [...] Electronic Medical Record Genetic Sleep Disorder Resea [facility] Other*[id number] 05/06/2011 03/03/2016 Dyspnea and respiratory abnormality 04/06/2011 01/12/2018 Overview (05/24/2017): ICD-10 update of inactive term ACTIVE CASE MANAGEMENT 07/30/200801/01 Overview (07/30/2008): Magda David RN [facility]- [phone] Cramp in limb 06/07/2003 10/17/2013 Atherosclerosis of [place] co ronary artery of [place] heart without angina pectoris HYPERLIPIDEMIA NEC-NOS 07/08 Overview (07/08/2009): Per Lipid Taxonomy. 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 Phyllis, and left a detailed message on an identified voicemail to make aware. ----- Message from Suzi Garcia sent at 06/22/2024 8:57 AM EST ----- Stable echo, no change compared to 2021. documented in this encounter Plan of Treatment Upcoming Encounters Date Type Department Care Team (Late st Contact Info) Description 07/02/2024 2:30 PM EST Home Visit [facility], [facility] [address] [place] [address] Clau King RN [address] [place] [address] 08/20/2024 1:20 PM EST Office Visit Family Medicine [address] [place] [phone] Jae Anthony MD [address] [place] [address] [place] [address] 01/11/2025 1:20 PM EDT Office Visit Sleep Disorders Ctr [facility] [address] [place] [phone] Payal Bonilla DO [address] [place] [address] 01/17/2025 1:00 PM EDT Office Visit Cardiology [address] [place] [address] Frances Hopkins PA-C [address] [place] [address] Health Maintenance Due Date Last Done Comments [...] this encounter Medical Devices Implanted Type Area Radio Division Lieutenant Device Identifier Shelf Expiration Date Model / Serial / Lot Intraocular Posterior Chamber Lens Implanted:Qty: 1 on 12/05/2014 by Christiano Britt MD at OR [facility] Left: Eye [employer] 06/30/2017 [id number] / [id number] / [id number] 24.0 Io Lens Implanted:Qty: 1 on 01/02/2015 by Christiano Britt MD at OR [facility] Right: Eye 04/29/2017 [id number] / [id number] / [id number] Clip Padlock Def Closure - [id number] Implanted:Qty: 1 on 01/17/2020 by Zay Goodman DO at ENDOSCOPY [facility] [employer] 09/27/2022 [id number] / / [id number] Duraclip - [id number] Implanted:Qty: 3 on 01/17/2020 by Zay Goodman DO at [facility]COPY [facility] [employer] 03/18/2022 [id number] / / [id number] documented as of this encounter Advance Directives [...] 9:16 PM 10/07/2020 9:17 PM This order re flects the patients [...] the patient have Health Care Power of Occupational Health And Safety Adviser? Yes, in chart and reviewed as current * Full Code Date Activated Date Inactivated Comments 06/09/2019 1:36 PM 06/11/2019 8:01 PM Question Answer Comments Discussion of Advance Directives occurred with: Not Discussed Does the patient have a Living Will? No Does the patient have Health Care Power of Attor kyle? No Care Teams Safety Inspector Relationship Specialty Start Date End Date Jae Anthony MD [address] [place] [address] [place] [address] PCP - General Family Medicine 10/06/12 documented as of this encounter
== END 2024-07-05 13:11 | disposition home or self-care (01) | DRG 35 ==
LOC: ASU 07:39 → 1E 08:00
PROC: EV.TCAR (2024-07-04 10:00)

== ENCOUNTER 2025-02-28 20:25 | Inpatient (IN) ==
[2025-02-28] MEDS: SODIUM CHLORIDE 0.9% 1,000 ML IV ONE (21:13)
[2025-02-28 21:36] LABS: Hematocrit (blood only) 36.3 % (42.0-52.0); Hemoglobin 11.5 g/dl (14.0-18.0); Immature Granulocytes # (auto) 0.06 K/uL (0.01-0.20); Immature Granulocytes % (auto) 0.6 %; Mean Corpuscular Hemoglobin 28.4 pg (25.0-34.0); Mean Corpuscular Volume 89.6 fL (80.0-100.0); Platelet Count 161 K/uL (130-400); RDW Standard Deviation 54.3 fL (36.4-46.3); Red Blood Count 4.05 M/uL (4.70-6.10); White Blood Count 10.52 K/ul (4.8-10.8)
[2025-02-28 22:00] LABS: Alanine Aminotransferase 26.0 U/L (7-52); Albumin Globulin Ratio 1.3 (0.9-2); Alkaline Phosphatase 33.0 U/L (34-104); Anion Gap 9.0 (3-11); Bilirubin,Total 0.5 mg/dl (0.2-1.0); Blood Urea Nitrogen 22.0 mg/dl (6-23); Calcium 9.8 mg/dl (8.6-10.3); Carbon Dioxide 28.0 mmol/L (21-32); Chloride 99.0 mmol/L (98-107); Creatine Kinase 28.0 U/L (30-223); Creatinine Clr Calc Pharmacy 50.1 ml/min; Globulin 3.2 gm/dl (2.5-4.0); Glucose 301.0 mg/dl (70-99(Fasting)); Potassium 4.6 mmol/L (3.5-5.1); Sodium 136.0 mmol/L (136-145); Thyroid Stimulating Hormone 2.682 uIu/ml (0.300-4.500); Total Protein 7.2 gm/dl (6.0-8.3)
[2025-02-28 22:01] LABS: INR 0.9 (0.9-1.1); Prothrombin Time 10.3 Seconds (9.0-12.0)
[2025-02-28 22:15] LABS: Appearance Urine Cloudy (Clear); Bacteria Urine Automated 4+ (None Seen); Cast Urine Automated 0-2 /lpf (0-2); Epithelial Cell Urine Auto 0-2 /hpf (0-2); Glucose Urine UA 3+ (Negative); RBC Urine Automated 0-2 /hpf (0-2); WBC Urine Automated >50 /hpf (0-5)
--- NOTE | 2025-02-28 22:58 | XRay Report ---
Exam(s): XR CXR 1 VIEW EXAM: XR Chest, 1 View CLINICAL HISTORY: Reason for exam: weakness. TECHNIQUE: Frontal view of the chest. COMPARISON: No relevant prior studies available. FINDINGS: Lungs: Mild to moderate peribronchial thickening of the central lower lobe bronchi. There are increased interstitial opacities throughout the lungs. No consolidation. Pleural space: Unremarkable. No pneumothorax. Heart: Status post CABG. Mild cardiomegaly. Mediastinum: Status post median sternotomy with sternal wires intact. Normal mediastinal contour. Bones/joints: Unremarkable. No acute fracture. IMPRESSION: Bronchitis, which may be of infectious or inflammatory etiologies with pneumonitis and/or pulmonary edema. No evidence of consolidation or pleural effusion. Electronically signed by: Isabel Santos MD 02/28/25 22:57 PM
--- NOTE | 2025-02-28 23:51 | CT Scan Report ---
Exam(s): CT HEAD Without Contrast EXAM: CT Head Without Intravenous Contrast CLINICAL HISTORY: Reason for exam: weakness. TECHNIQUE: Axial computed tomography images of the head/brain without intravenous contrast. CTDI is 62.5 mGy and DLP is 961.59 mGy-cm. Automated exposure control was utilized for the study. A dose lowering technique was utilized adhering to the principles of ALARA. COMPARISON: No relevant prior studies available. FINDINGS: Brain: Remote ischemic injuries of the right frontal, parietal and occipital lobes with encephalomalacia and gliosis. Remote ischemic injuries of the bilateral cerebellar lobes. No hemorrhage. Advanced nonspecific white matter changes. No edema. Ventricles: Moderate ventriculomegaly. Bones/joints: Unremarkable. No acute fracture. Soft tissues: Unremarkable. Sinuses: Unremarkable as visualized. No acute sinusitis. Mastoid air cells: Unremarkable as visualized. No mastoid effusion. IMPRESSION: No evidence of acute intracranial pathology. Electronically signed by: Isabel Santos MD 02/28/25 23:50 PM
--- NOTE | 2025-02-28 23:57 | Emergency Department Note ---
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 Patient is accompanied by his and daughters who provide additional history. The patient has had ongoing issues since prior stroke. Patient has been in rehabilitation services in the past. Family states they are focusing on trying to keep him at home but over the past few days he has been severely weak and intermittently confused. They note that his blood pressure has been ranging to hypotensive to hypertensive. They also note that his glucose has been all over the place. They note that he has been more confused and he is required 2-3 people to assist him with transitions and walking. They report that this is too difficult for them to manage at home and they feel that something is going on so they brought him into the emergency department. While the patient does report he seems confused and weak, he otherwise has no complaints. They deny fever or chills. No cough or congestion. Denies chest pain or palpitations. No shortness of breath. They deny abdominal pain, nausea and vomiting. No urinary complaints. No recent changes in bowel movements. Patient denies recent changes in medications or OTC supplements. Patient offers no other complaints, today. ADDITIONAL HISTORY OBTAINED: Per HPI Chronic Medical/Social Conditions Affecting Care: Per HPI PAST MEDICAL HISTORY: See Below PAST SURGICAL HISTORY: See Below FAMILY HISTORY: See Below SOCIAL HISTORY: See Below HOME MEDICATIONS: See Below ALLERGIES: See Below VITALS: See Below PHYSICAL EXAMINATION: GENERAL: Sitting up in bed, alert, well appearing, well nourished, no distress, non-toxic EYE EXAM: normal conjunctiva. PERRL and EOM's grossly intact. OROPHARYNX: no exudate, no erythema, lips, buccal mucosa, and tongue normal and mucous membranes are moist NECK: supple, no nuchal rigidity, no adenopathy, non-tender LUNGS: Clear to auscultation. Normal chest wall mechanics HEART: no murmurs, regular rate, regular rhythm ABDOMEN: abdomen soft, non-tender, normo-active bowel sounds, no masses, no rebound or guarding. BACK: Back is symmetrical on inspection and there is no deformity, no midline tenderness, no CVA tenderness. SKIN: no rashes and no bruising UPPER EXTREMITIES: upper extremities are grossly normal. LOWER EXTREMITIES: No pitting edema. NEURO EXAM: Normal sensorium, cranial nerves II-XII grossly intact, normal speech, no gross weakness of arms, no gross weakness of legs. No drift. Finger to nose intact. Gross sensation intact. MEDICAL DECISION MAKING: Differential diagnoses includes but not limited to hypoglycemia, electrolyte derangements, dehydration, shock, CVA, ICH, hydrocephalus, NPH, UTI, pneumonia, viral URI, postictal period, ACS, dysrhythmia, metabolic encephalopathy, multifactorial encephalopathy, hypercapnia, hypoxia, polypharmacy, substance use In summary, this is a 89 year old male who presented with generalized weakness and confusion. Differential as above. Nursing notes and pertinent past medical records reviewed. Vital signs reviewed and the patient is tachycardic but otherwise afebrile hemodynamically stable. History and presentation revealed prior CVA with residual will weakness. Has required rehabilitation services in the past but family wants to and prefers to keep him at home under their care. They previously had home health care but no longer have this. Patient has been confused and weak over the last few days. No other symptoms.. Physical examination revealed The patient has generalized weakness. There is a possible left-sided facial droop but could be from his prior stroke or chronic. Given his confusion and weakness, will obtain advanced imaging with CT head. Plan for labs and infectious workup as well. Diagnostics interpreted by me include EKG and cardiac monitoring as listed below: -Cardiac Monitoring: An order was placed for continuous cardiac monitoring. The monitor shows a rate of 90-110s with regular rhythm. -ECG: EKG independently interpreted by me reveals sinus tachycardia at a rate of 103 bpm. There are T wave inversions and flattening throughout the precordial leads. No significant ST segment changes to suggest STEMI. Patient does have left axis deviation. Patient completed laboratory studies and imaging. CXR independently interpreted by me reveals no evidence of focal consolidation to suggest pna. No large pneumothorax or pleural effusion. The radiologist reported bronchitis but the patient does not have symptoms of bronchitis at this time. Do not feel the patient needs treated for pneumonia or bronchitis at this time. Results independently interpreted by me are No significant leukocytosis. He does have anemia that is stable as compared to prior. Patient's kidney function and electrolytes are okay. Troponin was not remarkable. Urinalysis does show UTI. Patient was treated with IV fluid resuscitation and started on ceftriaxone. CTH independently interpreted by me reveals no evidence of ICH. No significant hydrocephalus. No major skull fractures. CTH does not demonstrate findings to suggest an etiology of the patient's symptoms or presentation, today. The patient's primary caregivers are his daughters, mostly Narda, and she is concerned with discharge. Given fluctuations in blood pressure as well as glucose, she feels this will worsen. The patient has already been weak at home today. I feel this is likely related to acute encephalopathy in the setting of his complicated UTI. I do fear for his safety at home. Family is on board with this. They feel that he does need admitted. They are concerned that he will fall or worsen at home. Do feel this is a reasonable request. Ultimately, the decision was made to admit the patient for acute encephalopathy in the setting of a complicated UTI with poorly controlled DM2. . I discussed the case with the hospitalist service via telephone/TigerText and they are agreeable to admit the patient to their services. Based on the above, including the patient's age, coexisting illnesses, labs, imaging, and exam findings the decision to treat as an inpatient. I discussed the patient with the hospitalist team who recommended admission to their services. They received the medications, treatments, interventions indicated above and their condition remained guarded. I discussed my findings with the patient and their family and they understand and agree with the treatment plan. All patient / family questions were answered to their satisfaction. Consults/Care Managements Discussions: Per MDM ER treatment provided: See above Procedures:none Critical Care: None The chart was completed utilizing [employer] voice recognition software. Grammatical errors, random word insertions, pronoun errors, and incomplete sentences are an occasional consequence of this system due to software limitations, ambient noise, and hardware issues. Any formal questions or concerns about the content, text, or information contained within the body of this dictation should be directly addressed to the physician for clarification. Past Med/Surg History Problem List (Updated 03/01/25 @ 04:59 by Nitesh Montejo DO) Acute hyperglycemia (Acute) Ambulatory dysfunction (Acute) Acute encephalopathy (Acute) Complicated urinary tract infection (Acute) Weakness Pressure ulcer of left heel, unstageable (Acute) Ingrown toenail (Acute) Pressure injury of deep tissue of left heel (Acute) BPH w urinary obs/LUTS (Chronic) Internal carotid artery stent present Status post carotid surgery 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 Diabetes mellitus, type II Peripheral artery disease (Chronic) COPD (chronic obstructive pulmonary disease) Obesity residential current use of clopidogrel (Acute) Hypothyroidism (Chronic) HTN (hypertension) (Chronic) ERINN (obstructive sleep apnea) (Chronic) CPAP with O2 3.5L HS Dyslipidemia (Chronic) CAD (coronary artery disease) (Chronic) CABG x 4 (2000) Stent x1 (2006) Cath (2011) - SVG to 1st diagonal 100% occluded, other grafts patent Medical History 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 pt can ambulate short distances with walker and x1-2 person assist depending on his tolerability. mild slurred/slow/weak speech at times. pt will sometimes cough when eating/drinking. has never aspirated on his food/drink Hx of myocardial infarction 1998 - treated w/ medication. cardiac cath done - no stents ([employer]) 2000 - CABG x4 vessels Congestive heart failure chronic diaystolic heart failure On home oxygen therapy 3lpm via n/c PRN throughout the day - rarely uses. Urinary incontinence Renal cyst monitoring PAD (peripheral artery disease) On anticoagulant therapy plavix daily ERINN (obstructive sleep apnea) CPAP with O2 3.5L HS Hypothyroidism GERD (gastroesophageal reflux disease) "belches often" Hyperlipidemia Diabetes mellitus, type 2 Chronic obstructive pulmonary disease stable with current treatment, acute flare up (last had Mid-May 2024) and started on albuterol nebulizers PRN. BPH (benign prostatic hyperplasia) Amputated finger right hand, middle finger (~1960 work accident) Carotid artery disease s/p Left CEA (2011), right (2012) Rest pain of both lower extremities due to atherosclerosis Aortic stenosis s/p TAVR Surgical History History of nasal septoplasty History of tonsillectomy Status post uvulopalatopharyngoplasty remote history S/P vascular surgery "kissing cousin stents placed" Dr Montana bilateral legs S/P TURP S/P laminectomy with spinal fusion x2 (lumbar) History of cataract surgery bilateral S/P TAVR (transcatheter aortic valve replacement) [place] [facility] [place] S/P right rotator cuff repair History of CEA (carotid endarterectomy) Left - 2012 Right - 2013 H/O vascular surgery (05/26/22) Right Common Femoral Artery Endarterectomy,(Right) with bovine patch - Maurizio Montana MD sBilateral Iliac Stents(Bilateral) - Maurizio Montana MD History of anesthesia reaction Slow to wake History of cholecystectomy History of colonoscopy History of cardiac cath Stent x1 (2006) History of coronary artery bypass graft CABG x4 (2000) Family History Brother Diabetes Coronary heart disease, Onset Age: 60 Brother Diabetes Coronary heart disease, Onset Age: 50 Mother Diabetes Other No family history of adverse response to anesthesia Social History Smoking Status: Former smoker Tobacco Type: Cigarettes packs per day: 4; Second Hand Exposure: No; Do You Dip or Chew Tobacco: No; Hx Alcohol Use: No Hx Substance Use: No Preferred Language: Turkmen Communication Ability: Effective Visual Impairment: Severely Limited Hearing Ability: Use of Hearing Aid Extractions Technician Required: No Beliefs That Will Affect Care: None marital status: Current Living Situation: Spouse and Family current occupational status: retired Feels Safe at Home: Yes Safety Concerns: Feels Safe At This Time Diet: regular caffeine: Yes during the past year weight has: remained stable Assistive Devices: CPAP, Denture - Upper, Denture - Lower, Glasses, Oxygen - at Night and Walker Allergies Allergies Allergy/AdvReac Type Severity Reaction Status Date / Time empagliflozin Allergy Severe rash, skin Verified 02/21/25 13:02 [From Jardiance] irritation at the groin codeine AdvReac Severe Anxiety Verified 02/21/25 13:02 symptoms hydrocodone AdvReac Severe Anxiety, Verified 02/21/25 13:02 insomnia Iodinated Contrast Media AdvReac Severe drowsy, Verified 02/21/25 13:02 "wipes patient out the following day" tramadol AdvReac Severe unable to Verified 02/21/25 13:02 move/somnolence camphor [From Biofreeze] AdvReac Intermediate Itching Verified 02/21/25 13:02 guaifenesin [From Mucinex] AdvReac Intermediate inability Verified 02/21/25 13:02 to walk, confusion menthol [From Biofreeze] AdvReac Intermediate Itching Verified 02/21/25 13:02 opiate AdvReac Severe unable to Uncoded 02/21/25 13:02 tolerate any pain medication Home Meds Home Medications Medication Instructions Recorded Confirmed metformin 500 mg tablet 1,000 mg PO QAM 02/04/23 03/01/25 acetaminophen 500 mg tablet 500 - 1,000 mg PO UD pain 06/12/24 03/01/25 (Tylenol Extra Strength) albuterol sulfate 1.25 mg/3 mL 1.25 mg inhalation Q4H PRN 06/12/24 03/01/25 solution for nebulization sob/wheezing albuterol sulfate 90 mcg/actuation 2 inh inhalation Q4H PRN 06/12/24 03/01/25 aerosol inhaler sob/wheezing docusate sodium 100 mg capsule 200 mg PO HS 06/12/24 03/01/25 fenofibrate nanocrystallized 48 mg 48 mg PO QPM 06/12/24 03/01/25 tablet linagliptin 5 mg tablet (Tradjenta) 5 mg PO QAM 06/12/24 03/01/25 losartan 50 mg tablet 50 mg PO QAM 06/12/24 03/01/25 melatonin 10 mg tablet 10 mg PO HS 06/12/24 03/01/25 metformin 500 mg tablet 500 mg PO QPM 06/12/24 03/01/25 nitroglycerin 0.4 mg sublingual 0.4 mg sublingual UD PRN Chest Pain 06/12/24 03/01/25 tablet (Nitrostat) ondansetron HCl 4 mg tablet 4 mg PO Q6H PRN nausea/vomitting 06/12/24 03/01/25 polyethylene glycol 3350 17 8.5 g PO QAM PRN ud - constipation 06/12/24 03/01/25 gram/dose oral powder (Miralax) pregabalin 100 mg capsule (Lyrica) 100 mg PO AMHS 06/12/24 03/01/25 rosuvastatin 40 mg tablet 40 mg PO HS 06/12/24 03/01/25 tamsulosin 0.4 mg capsule 0.4 mg PO HS 06/12/24 03/01/25 aspirin 81 mg tablet,delayed 81 mg PO QAM 07/04/24 03/01/25 release cyanocobalamin (vitamin B-12) 100 mcg PO QAM 12/19/24 03/01/25 1,000 mcg tablet (Vitamin B-12) magnesium oxide 400 mg (241.3 mg 400 mg PO AMHS 03/01/25 03/01/25 magnesium) tablet metoprolol succinate 25 mg 12.5 mg PO DAILY 03/01/25 03/01/25 tablet,extended release 24 hr ticagrelor 90 mg tablet (Brilinta) 90 mg PO AMHS 03/01/25 03/01/25 Previous Rx's Medication Instructions Recorded fluticasone fur. 100 mcg-umeclid 1 inh inhalation QAM #60 ea 01/06/23 62.5 mcg-vilant 25 mcg inhalat.powder (Trelegy Ellipta) levothyroxine 25 mcg tablet 25 mcg PO QAM #30 tabs 01/06/23 multivitamin 1 tab PO QAM #30 tabs 01/06/23 pantoprazole 40 mg tablet,delayed 40 mg PO QAM #30 tabs 01/06/23 release potassium chloride 10 mEq 10 meq PO QAM #30 caps 01/06/23 capsule,extended release torsemide 20 mg tablet 20 mg PO QAM #30 tabs 01/06/23 Results & Data (ED) Vital Signs Vital Signs - 24 hr 02/28/25 20:30 02/28/25 20:45 02/28/25 21:15 Temperature 37.2 C Temperature Source Oral Pulse Rate 106 H 102 H Pulse Rate [Right] 98 H Respiratory Rate 18 16 Respiratory Effort / Characteristics Non-Labored Spontaneous Non-Labored Spontaneous Respiratory Depth Normal Normal Blood Pressure 147/98 H Blood Pressure [Right Arm] 147/98 H Blood Pressure Mean 114 Blood Pressure Mean [Right Arm] 114 Blood Pressure Position Lying Blood Pressure Position [Right Arm] Sitting Pulse Oximetry 95 96 Oxygen Delivery Method Nasal Cannula Nasal Cannula Oxygen Flow Rate 3 3 Sepsis Recent Fever Within 48 Hours No Sepsis New/Unexplained Change in Mental Status N/A Sepsis Action Taken by Nursing No Action Required 02/28/25 21:15 02/28/25 22:06 02/28/25 23:19 Temperature Temperature Source Pulse Rate Pulse Rate [Right] 98 H 96 H Respiratory Rate 16 16 Respiratory Effort / Characteristics Non-Labored Spontaneous Non-Labored Spontaneous Respiratory Depth Normal Normal Blood Pressure Blood Pressure [Right Arm] 147/98 H 152/69 H Blood Pressure Mean Blood Pressure Mean [Right Arm] 114 96 Blood Pressure Position Blood Pressure Position [Right Arm] Pulse Oximetry 96 98 96 Oxygen Delivery Method Nasal Cannula Nasal Cannula Nasal Cannula Oxygen Flow Rate 3 3 Sepsis Recent Fever Within 48 Hours Sepsis New/Unexplained Change in Mental Status Sepsis Action Taken by Nursing 03/01/25 00:29 03/01/25 00:43 03/01/25 02:38 Temperature Temperature Source Pulse Rate 96 H Pulse Rate [Right] 102 H 90 Respiratory Rate 16 16 Respiratory Effort / Characteristics Non-Labored Spontaneous Non-Labored Spontaneous Respiratory Depth Normal Normal Blood Pressure Blood Pressure [Right Arm] 152/69 H 113/60 Blood Pressure Mean Blood Pressure Mean [Right Arm] 96 77 Blood Pressure Position Blood Pressure Position [Right Arm] Pulse Oximetry 97 95 Oxygen Delivery Method Nasal Cannula Room Air Oxygen Flow Rate 3 Sepsis Recent Fever Within 48 Hours Sepsis New/Unexplained Change in Mental Status Sepsis Action Taken by Nursing 03/01/25 03:40 03/01/25 04:35 Temperature Temperature Source Pulse Rate 94 H Pulse Rate [Right] 91 H Respiratory Rate 16 Respiratory Effort / Characteristics Non-Labored Spontaneous Respiratory Depth Normal Blood Pressure Blood Pressure [Right Arm] 113/60 Blood Pressure Mean Blood Pressure Mean [Right Arm] 77 Blood Pressure Position Blood Pressure Position [Right Arm] Pulse Oximetry 98 Oxygen Delivery Method Nasal Cannula Oxygen Flow Rate 3 Sepsis Recent Fever Within 48 Hours Sepsis New/Unexplained Change in Mental Status Sepsis Action Taken by Nursing Laboratory Data 03/02/25 06:25 03/02/25 06:25 Lab Results 02/28/25 02/28/25 Range/Units 20:41 22:04 WBC 10.52 (4.8-10.8) K/ul RBC 4.05 L (4.70-6.10) M/uL Hgb 11.5 L (14.0-18.0) g/dl Hct 36.3 L (42.0-52.0) % MCV 89.6 (80.0-100.0) fL MCH 28.4 (25.0-34.0) pg MCHC 31.7 L (32.0-36.0) g/dL RDW Std Deviation 54.3 H (36.4-46.3) fL RDW Coeff of Maryan 16.5 H (11.5-14.5) % Plt Count 161 (130-400) K/uL MPV 10.4 (9.4-12.4) fL Immature Gran % (Auto) 0.6 % Neut % (Auto) 80.8 % Lymph % (Auto) 10.5 % Alexander % (Auto) 7.7 % Eos % (Auto) 0.3 % Baso % (Auto) 0.1 % Neut # (Auto) 8.51 H (1.40-6.50) K/uL Lymph # (Auto) 1.10 L (1.20-3.40) K/uL Alexander # (Auto) 0.81 H (0.11-0.59) K/uL Eos # (Auto) 0.03 (0.00-0.50) K/uL Baso # (Auto) 0.01 (0.00-0.20) K/uL Immature Gran # (Auto) 0.06 (0.01-0.20) K/uL Absolute Nucleated RBC 0.02 (0.00-0.12) K/uL Nucleated RBC % (auto) 0.2 % PT 10.3 (9.0-12.0) Seconds INR 0.9 (0.9-1.1) Sodium 136 (136-145) mmol/L Potassium 4.6 (3.5-5.1) mmol/L Chloride 99 (98-107) mmol/L Carbon Dioxide 28 (21-32) mmol/L Anion Gap 9 (3-11) BUN 22 (6-23) mg/dl Creatinine 1.19 (0.6-1.4) mg/dl Est Cr Clr Drug Dosing 50.1 ml/min eGFR 58.75 BUN/Creatinine Ratio 18.5 (10-20) Glucose 301 H* (70-99(Fasting)) mg/dl Calcium 9.8 (8.6-10.3) mg/dl Total Bilirubin 0.5 (0.2-1.0) mg/dl AST 26 (13-39) U/L ALT 26 (7-52) U/L Alkaline Phosphatase 33 L (34-104) U/L Total Creatine Kinase 28 L (30-223) U/L Troponin I High Sens 8.8 (0-20) pg/ml Total Protein 7.2 (6.0-8.3) gm/dl Albumin 4.0 (3.4-5.0) gm/dl Globulin 3.2 (2.5-4.0) gm/dl Albumin/Globulin Ratio 1.3 (0.9-2) TSH 2.682 (0.300-4.500) uIu/ml Urine Color Yellow Urine Appearance Cloudy A (Clear) Urine pH 8.5 H (4.5-7.5) Ur Specific [place] 1.018 (1.000-1.030) Urine Protein 1+ H (Negative) Urine Glucose (UA) 3+ H (Negative) Urine Ketones Negative (Negative) Urine Blood Negative (Negative) Urine Nitrite Negative (Negative) Urine Bilirubin Negative (Negative) Urine Urobilinogen Negative (Negative) Ur Leukocyte Esterase 2+ H (Negative) Urine WBC (Auto) >50 H (0-5) /hpf Urine RBC (Auto) 0-2 (0-2) /hpf U Hyaline Cast (Auto) 0-2 (0-2) /lpf U Epithel Cells (Auto) 0-2 (0-2) /hpf Urine Bacteria (Auto) 4+ H (None Seen) Urine Comment Administered Medications Aspirin (Aspirin 81 Mg Ectab) 81 mg PO [facility] Stop: 03/31/25 08:59 Last Admin: 03/02/25 08:57 Dose: 81 mg Documented By: Admin: 03/01/25 07:53 Dose: 81 mg Documented By: SKB Cyanocobalamin (Cyanocobalamin (B-12) 100 Mcg Tablet) 100 mcg PO [facility] Stop: 03/31/25 08:59 Last Admin: 03/02/25 08:57 Dose: 100 mcg Documented By: Admin: 03/01/25 07:53 Dose: 100 mcg Documented By: CATIA Docusate Sodium (Docusate Sodium 100 Mg Cap) 200 mg PO HS [facility] Stop: 03/31/25 20:59 Last Admin: 03/02/25 20:14 Dose: 200 mg Documented By: АНДРЕЙ Admin: 03/01/25 20:46 Dose: 200 mg Documented By: АНДРЕЙ Doxycycline Hyclate (Doxycycline Hyclate 100 Mg Cap) 100 mg PO BID [facility] Stop: 03/06/25 08:59 Last Admin: 03/02/25 20:16 Dose: 100 mg Documented By: АНДРЕЙ Admin: 03/02/25 08:57 Dose: 100 mg Documented By: Admin: 03/01/25 20:38 Dose: 100 mg Documented By: АНДРЕЙ Admin: 03/01/25 07:53 Dose: 100 mg Documented By: CATIA Enoxaparin Sodium (Enoxaparin Inj 40 Mg/0.4 Ml Syr) 40 mg SQ Q24H [facility] Stop: 03/31/25 08:59 Last Admin: 03/02/25 08:59 Dose: 40 mg Documented By: Admin: 03/01/25 07:59 Dose: 40 mg Documented By: CATIA Fenofibrate (Fenofibrate Nanocrystallized 48 Mg Tablet) 48 mg PO QPM [facility] Stop: 03/31/25 20:59 Last Admin: 03/02/25 20:17 Dose: 48 mg Documented By: АНДРЕЙ Admin: 03/01/25 20:38 Dose: 48 mg Documented By: АНДРЕЙ Fluticasone Furoate (Fluticasone Furoate 100mcg 14 Puffs/Inhaler) 1 puffs INH DAILY [facility] Stop: 03/31/25 08:59 Last Admin: 03/02/25 09:57 Dose: 1 puffs Documented By: Admin: 03/01/25 07:58 Dose: 1 puffs Documented By: CATIA Ceftriaxone Sodium (Rocephin) 2,000 mg in 50 mls @ 100 mls/hr IV Q24H [facility] Stop: 03/06/25 21:59 Last Infusion: 03/02/25 00:00 Dose: Infused Documented By: АНДРЕЙ Admin: 03/01/25 23:30 Dose: 100 mls/hr Documented By: АНДРЕЙ Insulin Aspart (Insulin Aspart Per Unit Charge) 0 units SC ACHS [facility] Stop: 03/31/25 07:29 Last Admin: 03/02/25 20:15 Dose: 5 units Documented By: АНДРЕЙ Co-signed By: MG Admin: 03/02/25 17:38 Dose: 11 units Documented By: BEVERLY Co-signed By: JACKELIN Admin: 03/02/25 13:13 Dose: 7 units Documented By: MTNori Co-signed By: KKRiddhi Admin: 03/02/25 09:05 Dose: 4 units Documented By: MTNori Co-signed By: KKRiddhi Admin: 03/01/25 20:45 Dose: 5 units Documented By: АНДРЕЙ Co-signed By: LARA Admin: 03/01/25 17:58 Dose: 6 units Documented By: LATOSHA Co-signed By: FABIO Admin: 03/01/25 14:05 Dose: 4 units Documented By: BEVERLY Co-signed By: JACKELIN Admin: 03/01/25 08:18 Dose: 3 units Documented By: CATIA Co-signed By: KATERINA Levothyroxine Sodium (Levothyroxine Sodium 25 Mcg Tablet) [facility]: 03/31/25 06:29 Last Admin: 03/02/25 06:18 Dose: 25 mcg Documented By: АНДРЕЙ Admin: 03/01/25 07:51 Dose: 25 mcg Documented By: CATIA Losartan Potassium (Losartan Potassium 50 Mg Tab) 50 mg PO QAM [facility] Stop: 03/31/25 08:59 Last Admin: 03/02/25 08:57 Dose: 50 mg Documented By: Admin: 03/01/25 07:54 Dose: 50 mg Documented By: CATIA Magnesium Oxide (Magnesium Oxide 400 Mg Tab) 400 mg PO AMHS [facility] Stop: 03/31/25 08:59 Last Admin: 03/02/25 20:16 Dose: 400 mg Documented By: АНДРЕЙ Admin: 03/02/25 08:57 Dose: 400 mg Documented By: Admin: 03/01/25 20:38 Dose: 400 mg Documented By: АНДРЕЙ Admin: 03/01/25 07:55 Dose: 400 mg Documented By: CATIA Melatonin (Melatonin 3 Mg Tab) 9 mg PO HS [facility] Stop: 03/31/25 20:59 Last Admin: 03/02/25 20:15 Dose: 9 mg Documented By: АНДРЕЙ Admin: 03/01/25 20:38 Dose: 9 mg Documented By: АНДРЕЙ Metoprolol Succinate (Metoprolol Succ 25mg Ext Rel Tab) 12.5 mg PO DAILY [facility] Stop: 03/31/25 08:59 Last Admin: 03/02/25 08:57 Dose: 12.5 mg Documented By: Admin: 03/01/25 07:55 Dose: 12.5 mg Documented By: CATIA Multivitamins (Multivitamin Tab) 1 tab PO [facility] Stop: 03/31/25 08:59 Last Admin: 03/02/25 08:57 Dose: 1 tab Documented By: Admin: 03/01/25 07:56 Dose: 1 tab Documented By: CATIA Pantoprazole Sodium (Pantoprazole 40 Mg Tab) 40 mg PO [facility] Stop: 03/31/25 08:59 Last Admin: 03/02/25 08:57 Dose: 40 mg Documented By: Admin: 03/01/25 07:56 Dose: 40 mg Documented By: CATIA Potassium Chloride (Potassium Chloride 10 Meq Tabcr) 10 meq PO [facility] Stop: 03/31/25 08:59 Last Admin: 03/02/25 09:05 Dose: 10 meq Documented By: Admin: 03/01/25 07:52 Dose: 10 meq Documented By: CATIA Pregabalin (Pregabalin 100 Mg Cap) 100 mg PO [facility] Stop: 03/31/25 08:59 Last Admin: 03/02/25 20:16 Dose: 100 mg Documented By: АНДРЕЙ Admin: 03/02/25 09:04 Dose: 100 mg Documented By: Admin: 03/01/25 20:46 Dose: 100 mg Documented By: АНДРЕЙ Admin: 03/01/25 10:52 Dose: 100 mg Documented By: CATIA Rosuvastatin Calcium (Rosuvastatin Calcium 20 Mg Tab) 40 mg PO [facility] Stop: 03/31/25 20:59 Last Admin: 03/02/25 20:16 Dose: 40 mg Documented By: АНДРЕЙ Admin: 03/01/25 20:38 Dose: 40 mg Documented By: АНДРЕЙ Tamsulosin HCl (Tamsulosin Hcl 0.4 Mg Cap) 0.4 mg PO [facility] Stop: 03/31/25 20:59 Last Admin: 03/02/25 20:16 Dose: 0.4 mg Documented By: АНДРЕЙ Admin: 03/01/25 20:38 Dose: 0.4 mg Documented By: АНДРЕЙ Ticagrelor (Ticagrelor 90 Mg Tab) 90 mg PO [facility] Stop: 03/31/25 08:59 Last Admin: 03/02/25 20:16 Dose: 90 mg Documented By: АНДРЕЙ Admin: 03/02/25 08:58 Dose: 90 mg Documented By: MTNori Admin: 03/01/25 20:39 Dose: 90 mg Documented By: АНДРЕЙ Admin: 03/01/25 07:56 Dose: 90 mg Documented By: CATIA Torsemide (Torsemide 20 Mg Tab) 20 mg PO [facility] Stop: 03/31/25 08:59 Last Admin: 03/02/25 08:57 Dose: 20 mg Documented By: Admin: 03/01/25 07:57 Dose: 20 mg Documented By: CATIA Umeclidinium/Vilanterol (Umeclidinium/Vilanterol 62.5/25mcg 7 Puffs/Inhaler) 1 puffs INH DAILY [facility] Stop: 03/31/25 08:59 Last Admin: 03/02/25 09:58 Dose: 1 puffs Documented By: MTNori Admin: 03/01/25 07:59 Dose: 1 puffs Documented By: CATIA Discontinued Medications Carvedilol (Carvedilol 3.125 Mg Tab) 3.125 mg PO NOW ONE Stop: 03/01/25 15:40 Last Admin: 03/01/25 17:55 Dose: 3.125 mg Documented By: LATOSHA Furosemide (Furosemide Inj 20 Mg/2 Ml Vial) 20 mg IV ONE ONE Stop: 03/01/25 15:07 Last Admin: 03/01/25 15:44 Dose: 20 mg Documented By: BEVERLY Sodium Chloride (Nss) 1,000 mls @ 999 mls/hr IV .Q1H1M ONE Stop: 02/28/25 22:02 Last Infusion: 02/28/25 22:17 Dose: Infused Documented By: Admin: 02/28/25 21:13 Dose: 999 mls/hr Documented By: CEZAR Ceftriaxone Sodium (Rocephin) 1,000 mg in 50 mls @ 100 mls/hr IV NOW STA Stop: 03/01/25 00:25 Last Infusion: 03/01/25 00:59 Dose: Infused Documented By: Admin: 03/01/25 00:28 Dose: 100 mls/hr Documented By: CEZAR Acetaminophen (Ofirmev) 1,000 mg in 100 mls @ 400 mls/hr IV NOW STA Stop: 03/01/25 01:43 Last Infusion: 03/01/25 01:56 Dose: Infused Documented By: Admin: 03/01/25 01:37 Dose: 400 mls/hr Documented By: CEZAR Potassium Chloride (Potassium Chloride 10 Meq Tabcr) Confirm Administered Dose 10 meq PO .STK-MED ONE Stop: 03/01/25 07:42 Last Admin: 03/01/25 07:52 Dose: Not Given Documented By: CATIA Imaging Data Radiologist's Impression: Chest X-Ray 02/28/25 21:01 Exam(s): XR CXR 1 VIEW EXAM: XR Chest, 1 View CLINICAL HISTORY: Reason for exam: weakness. TECHNIQUE: Frontal view of the chest. COMPARISON: No relevant prior studies available. FINDINGS: Lungs: Mild to moderate peribronchial thickening of the central lower lobe bronchi. There are increased interstitial opacities throughout the lungs. No consolidation. Pleural space: Unremarkable. No pneumothorax. Heart: Status post CABG. Mild cardiomegaly. Mediastinum: Status post median sternotomy with sternal wires intact. Normal mediastinal contour. Bones/joints: Unremarkable. No acute fracture. IMPRESSION: Bronchitis, which may be of infectious or inflammatory etiologies with pneumonitis and/or pulmonary edema. No evidence of consolidation or pleural effusion. Electronically signed by: Isabel Santos MD 02/28/25 22:[address] 02/28/25 21:02 Exam(s): CT HEAD Without Contrast EXAM: CT Head Without Intravenous Contrast CLINICAL HISTORY: Reason for exam: weakness. TECHNIQUE: Axial computed tomography images of the head/brain without intravenous contrast. CTDI is 62.5 mGy and DLP is 961.59 mGy-cm. Automated exposure control was utilized for the study. A dose lowering technique was utilized adhering to the principles of ALARA. COMPARISON: No relevant prior studies available. FINDINGS: Brain: Remote ischemic injuries of the right frontal, parietal and occipital lobes with encephalomalacia and gliosis. Remote ischemic injuries of the bilateral cerebellar lobes. No hemorrhage. Advanced nonspecific white matter changes. No edema. Ventricles: Moderate ventriculomegaly. Bones/joints: Unremarkable. No acute fracture. Soft tissues: Unremarkable. Sinuses: Unremarkable as visualized. No acute sinusitis. Mastoid air cells: Unremarkable as visualized. No mastoid effusion. IMPRESSION: No evidence of acute intracranial pathology. Electronically signed by: Isabel Santos MD 02/28/25 23:50 PM Discharge Plan Visit Data Chief Complaint: Weakness Stated Complaint: Weakness, Back Pain ED Provider: Nitesh Montejo Discharge Problem: Complicated urinary tract infection, Acute encephalopathy, Ambulatory dysfunction, Acute hyperglycemia Patient Disposition: Admitted As Inpatient Condition: Fair Discharge Instructions Interventions: ED Discharge Assessment Last Done: 03/01/25 05:22
[2025-03-01] MEDS: cefTRIAXone SODIUM 1,000 MG/50 ML BAG IV STA (00:28)
[2025-03-01] MEDS: ACETAMINOPHEN 1,000 MG/100 ML VIAL IV STA (01:37)
--- NOTE | 2025-03-01 04:13 | History & Physical Report ---
Date of Service March 01, 2025 Assessment & Plan (1) Weakness: Plan: 89-year-old male with past medical history significant for type 2 diabetes, peripheral vascular disease, chronic respiratory failure with hypoxia uses oxygen while sleeping with CPAP and as needed in the daytime, dyslipidemia, hypothyroidism, COPD, sleep apnea, history of pneumoconiosis, allergic rhinitis, bronchiectasis, bilateral carotid artery disease, bicuspid aortic valve, status post TAVR, CAD status post CABG, history of stroke left-sided weakness, chronic diastolic CHF, GERD, BPH, ataxia., Iron deficiency anemia, history of cerebellar hemorrhage, history of cerebellar stroke, former smoker who lives at home with his and daughter and ambulates slowly with walker with a lot of assistance was brought in by family because of weakness. Daughter says the patient is getting weak for last 2 weeks. But last couple of days got progressively worse. Today when he was sitting on the commode he could not get up which prompted the family to bring him to the hospital. Also sugars were high and blood pressure was high today. Since yesterday having urinary incontinence and today was micturating a lot. Normal bowel movements. No blood in stools or black stools. No chest pain or shortness of breath. No cough. No headache. Has chronic back pain. Has chronic pain in his arms. Appetite is okay. No difficulty swallowing most of the time. No runny nose or sore throat. Patient currently sleepy and daughter helped with H&P. Daughter says recently his Hemoccult was positive but patient refused colonoscopy. And there is a appointment today with hematology for possible IV iron infusion. Weakness Most from UTI and bronchitis Chest x-ray shows bronchitis UA is positive Received Rocephin in the ER Will continue Rocephin and also start on p.o. doxycycline Monitor response PT OT when stable Diabetes Hold home p.o. medications Sliding scale Will monitor Will follow HbA1c levels Obstructive sleep apnea CPAP nightly with oxygen History of CAD s/p CABG Aspirin, Brilinta, beta-mahogany and statin History of CVA Left-sided weakness Ambulates with a walker with a lot of assistance On aspirin, Brilinta and statin BPH On Flomax Monitor for urinary retention. Hypothyroidism On Synthyroid Diabetic neuropathy On pregabalin Peripheral vascular disease On aspirin, Brilinta and statin Hyperlipidemia On statin and fenofibrate Hypertension Losartan, metoprolol succinate and torsemide Will monitor History of COPD Continue home inhalers Diastolic CHF On torsemide with potassium supplement Monitor for volume overload Iron deficiency anemia Supposed to follow-up with hematology today and possible IV infusion as per family Will check iron studies Can consider iron infusion prior to discharge DVT prophylaxis Lovenox Monitor for any GI bleeding Disposition Med/telemetry Full code per my discussion with the family History of Present Illness Chief Complaint: Weakness, UTI and bronchitis Primary Care Provider: Jae Anthony MD 89-year-old male with past medical history significant for type 2 diabetes, peripheral vascular disease, chronic respiratory failure with hypoxia uses oxygen while sleeping with CPAP and as needed in the daytime, dyslipidemia, hypothyroidism, COPD, sleep apnea, history of pneumoconiosis, allergic rhinitis, bronchiectasis, bilateral carotid artery disease, bicuspid aortic valve, status post TAVR, CAD status post CABG, history of stroke left-sided weakness, chronic diastolic CHF, GERD, BPH, ataxia., Iron deficiency anemia, history of cerebellar hemorrhage, history of cerebellar stroke, former smoker who lives at home with his and daughter and ambulates slowly with walker with a lot of assistance was brought in by family because of weakness. Daughter says the patient is getting weak for last 2 weeks. But last couple of days got progressively worse. Today when he was sitting on the commode he could not get up which prompted the family to bring him to the hospital. Also sugars were high and blood pressure was high today. Since yesterday having urinary incontinence and today was micturating a lot. Normal bowel movements. No blood in stools or black stools. No chest pain or shortness of breath. No cough. No headache. Has chronic back pain. Has chronic pain in his arms. Appetite is okay. No difficulty swallowing most of the time. No runny nose or sore throat. Patient currently sleepy and daughter helped with H&P. Daughter says recently his Hemoccult was positive but patient refused colonoscopy. And there is a appointment today with hematology for possible IV iron infusion. Past medical history. As mentioned above. Past surgical history. Colonoscopy. CABG. Cystoscopy. EGD with endoscopic ultrasound. ERCP. Laminectomy with spinal fusion. Laparoscopic cholecystectomy. S/p angioplasty and stenting of left circumflex coronary artery. Palate/uvula surgery. Prostate laser. Bilateral cataracts. Repair of right ruptured rotator cuff. Status post TAVR. Bilateral carotid endarterectomy. Social history. . Quit smoking 1959. Smoked 4 packs a day for 30 years. Alcohol occasionally. No drug use. Family history. Brother had intestinal cancer. Brother had diabetes. Brother had diabetes. Mother had diabetes. Arthritis. Sister had heart disorder. Brother had heart attack. Allergies Allergy/AdvReac Type Severity Reaction Status Date / Time empagliflozin Allergy Severe rash, skin Verified 02/21/25 13:02 [From Jardiance] irritation at the groin codeine AdvReac Severe Anxiety Verified 02/21/25 13:02 symptoms hydrocodone AdvReac Severe Anxiety, Verified 02/21/25 13:02 insomnia Iodinated Contrast Media AdvReac Severe drowsy, Verified 02/21/25 13:02 "wipes patient out the following day" tramadol AdvReac Severe unable to Verified 02/21/25 13:02 move/somnolence camphor [From Biofreeze] AdvReac Intermediate Itching Verified 02/21/25 13:02 guaifenesin [From Mucinex] AdvReac Intermediate inability Verified 02/21/25 13:02 to walk, confusion menthol [From Biofreeze] AdvReac Intermediate Itching Verified 02/21/25 13:02 opiate AdvReac Severe unable to Uncoded 02/21/25 13:02 tolerate any pain medication Home Medications Medication Instructions Recorded Confirmed Type fluticasone fur. 100 mcg-umeclid 1 inh inhalation QAM #60 ea 01/06/23 03/01/25 Rx 62.5 mcg-vilant 25 mcg inhalat.powder (Trelegy Ellipta) levothyroxine 25 mcg tablet 25 mcg PO QAM #30 tabs 01/06/23 03/01/25 Rx multivitamin 1 tab PO QAM #30 tabs 01/06/23 03/01/25 Rx pantoprazole 40 mg tablet,delayed 40 mg PO QAM #30 tabs 01/06/23 03/01/25 Rx release potassium chloride 10 mEq 10 meq PO QAM #30 caps 01/06/23 03/01/25 Rx capsule,extended release torsemide 20 mg tablet 20 mg PO QAM #30 tabs 01/06/23 03/01/25 Rx metformin 500 mg tablet 1,000 mg PO QAM 02/04/23 03/01/25 History acetaminophen 500 mg tablet 500 - 1,000 mg PO UD pain 06/12/24 03/01/25 History (Tylenol Extra Strength) albuterol sulfate 1.25 mg/3 mL 1.25 mg inhalation Q4H PRN 06/12/24 03/01/25 History solution for nebulization sob/wheezing albuterol sulfate 90 mcg/actuation 2 inh inhalation Q4H PRN 06/12/24 03/01/25 History aerosol inhaler sob/wheezing docusate sodium 100 mg capsule 200 mg PO HS 06/12/24 03/01/25 History fenofibrate nanocrystallized 48 mg 48 mg PO QPM 06/12/24 03/01/25 History tablet linagliptin 5 mg tablet (Tradjenta) 5 mg PO QAM 06/12/24 03/01/25 History losartan 50 mg tablet 50 mg PO QAM 06/12/24 03/01/25 History melatonin 10 mg tablet 10 mg PO HS 06/12/24 03/01/25 History metformin 500 mg tablet 500 mg PO QPM 06/12/24 03/01/25 History nitroglycerin 0.4 mg sublingual 0.4 mg sublingual UD PRN Chest Pain 06/12/24 03/01/25 History tablet (Nitrostat) ondansetron HCl 4 mg tablet 4 mg PO Q6H PRN nausea/vomitting 06/12/24 03/01/25 History polyethylene glycol 3350 17 8.5 g PO QAM PRN ud - constipation 06/12/24 03/01/25 History gram/dose oral powder (Miralax) pregabalin 100 mg capsule (Lyrica) 100 mg PO AMHS 06/12/24 03/01/25 History rosuvastatin 40 mg tablet 40 mg PO HS 06/12/24 03/01/25 History tamsulosin 0.4 mg capsule 0.4 mg PO HS 06/12/24 03/01/25 History aspirin 81 mg tablet,delayed 81 mg PO QAM 07/04/24 03/01/25 History release cyanocobalamin (vitamin B-12) 100 mcg PO QAM 12/19/24 03/01/25 History 1,000 mcg tablet (Vitamin B-12) magnesium oxide 400 mg (241.3 mg 400 mg PO AMHS 03/01/25 03/01/25 History magnesium) tablet metoprolol succinate 25 mg 12.5 mg PO DAILY 03/01/25 03/01/25 History tablet,extended release 24 hr ticagrelor 90 mg tablet (Brilinta) 90 mg PO AMHS 03/01/25 03/01/25 History Past Med/Surg History Problem List (Updated 03/01/25 @ 04:59 by Nitesh Montejo DO) Acute hyperglycemia (Acute) Ambulatory dysfunction (Acute) Acute encephalopathy (Acute) Complicated urinary tract infection (Acute) Weakness Pressure ulcer of left heel, unstageable (Acute) Ingrown toenail (Acute) Pressure injury of deep tissue of left heel (Acute) BPH w urinary obs/LUTS (Chronic) Internal carotid artery stent present Status post carotid surgery 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 Diabetes mellitus, type II Peripheral artery disease (Chronic) COPD (chronic obstructive pulmonary disease) 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 pt can ambulate short distances with walker and x1-2 person assist depending on his tolerability. mild slurred/slow/weak speech at times. pt will sometimes cough when eating/drinking. has never aspirated on his food/drink Hx of myocardial infarction 1998 - treated w/ medication. cardiac cath done - no stents ([facility]) 2000 - CABG x4 vessels Congestive heart failure chronic diaystolic heart failure On home oxygen therapy 3lpm via n/c PRN throughout the day - rarely uses. Urinary incontinence Renal cyst monitoring PAD (peripheral artery disease) On anticoagulant therapy plavix daily ERINN (obstructive sleep apnea) CPAP with O2 3.5L HS Hypothyroidism GERD (gastroesophageal reflux disease) "belches often" Hyperlipidemia Diabetes mellitus, type 2 Chronic obstructive pulmonary disease stable with current treatment, acute flare up (last had Mid-May 2024) and started on albuterol nebulizers PRN. BPH (benign prostatic hyperplasia) Amputated finger right hand, middle finger (~1960 work accident) Carotid artery disease s/p Left CEA (2011), right (2012) Rest pain of both lower extremities due to atherosclerosis Aortic stenosis s/p TAVR Surgical History History of nasal septoplasty History of tonsillectomy Status post uvulopalatopharyngoplasty remote history S/P vascular surgery "kissing cousin stents placed" Dr [place] bilateral legs S/P TURP S/P laminectomy with spinal fusion x2 (lumbar) History of cataract surgery bilateral S/P TAVR (transcatheter aortic valve replacement) [facility] after 2006 (pig valve?) S/P right rotator cuff repair History of CEA (carotid endarterectomy) Left - 2011 Right - 2013 H/O vascular surgery (05/26/22) Right Common Femoral Artery Endarterectomy,(Right) with bovine patch - Maurizio Montana MD sBilateral Iliac Stents(Bilateral) - Maurizio Montana MD History of anesthesia reaction Slow to wake History of cholecystectomy History of colonoscopy History of cardiac cath Stent x1 (2006) History of coronary artery bypass graft CABG x4 (2000) Family History Brother Diabetes Coronary heart disease, Onset Age: 60 Brother Diabetes Coronary heart disease, Onset Age: 50 Mother Diabetes Other No family history of adverse response to anesthesia Social History Smoking Status: Former smoker Tobacco Type: Cigarettes packs per day: 4; Second Hand Exposure: No; Do You Dip or Chew Tobacco: No; Hx Alcohol Use: No Hx Substance Use: No Preferred Language: Armenian Communication Ability: Effective Visual Impairment: Severely Limited Hearing Ability: Use of Hearing Aid Homeowner Association Manager Required: No Beliefs That Will Affect Care: None marital status: Current Living Situation: Spouse and Family current occupational status: retired Feels Safe at Home: Yes Safety Concerns: Feels Safe At This Time Diet: regular caffeine: Yes during the past year weight has: remained stable Assistive Devices: CPAP, Denture - Upper, Denture - Lower, Glasses, Oxygen - at Night and Walker Review of Systems Review of Systems: All systems reviewed & are unremarkable except as noted in HPI & below Physical Exam Physical Exam: General-Not in distress. Head- atraumatic Eyes- PERRL. ENT- oropharynx clear Neck- supple, no JVD. Lungs- clear to auscultation no wheezing or crackles Heart- regular rhythm; no murmur, no gallop. Abdomen- normal bowel sounds, soft, nontender, no distension Extremities- no pretibial edema, small dry healing wound on left heel Neuro- alert, oriented PERRL, no facial palsy; no dysarthria; left sided weakness Results & Data Results & Data Vital Signs (Past 12 Hours) Vital Signs Temp Pulse Pulse Resp BP BP Pulse Ox 03/01/25 02:38 90 16 113/60 95 03/01/25 00:43 102 H 16 152/69 H 97 03/01/25 00:29 96 H 02/28/25 23:19 96 H 16 152/69 H 96 02/28/25 22:06 98 H 16 147/98 H 98 02/28/25 21:15 96 02/28/25 21:15 98 H 16 147/98 H 96 02/28/25 20:45 37.2 C 102 H 18 147/98 H 95 02/28/25 20:30 106 H O2 Del Method O2 Flow Rate 03/01/25 02:38 Room Air 03/01/25 00:43 Nasal Cannula 3 03/01/25 00:29 02/28/25 23:19 Nasal Cannula 3 02/28/25 22:06 Nasal Cannula 3 02/28/25 21:15 Nasal Cannula 02/28/25 21:15 Nasal Cannula 3 02/28/25 20:45 Nasal Cannula 3 02/28/25 20:30 Diagnostic Findings Laboratory Results WBC 10.52 K/ul (4.8-10.8) 02/28/25 20:41 RBC 4.05 M/uL (4.70-6.10) L 02/28/25 20:41 Hgb 11.5 g/dl (14.0-18.0) L 02/28/25 20:41 Hct 36.3 % (42.0-52.0) L 02/28/25 20:41 MCV 89.6 fL (80.0-100.0) 02/28/25 20: MCH 28.4 pg (25.0-34.0) 02/28/25 20: MCHC 31.7 g/dL (32.0-36.0) L 02/28/25 20:41 RDW Std Deviation 54.3 fL (36.4-46.3) H 02/28/25 20: RDW Coeff of Maryan 16.5 % (11.5-14.5) H 02/28/25 20: Plt Count 161 K/uL (130-400) 02/28/25 20: MPV 10.4 fL (9.4-12.4) 02/28/25: Immature Gran % (Auto) 0.6 % 02/28/25 20: Neut % (Auto) 80.8 % 02/28/25 20: Lymph % (Auto) 10.5 % 02/28/25: Tripp % (Auto) 7.7 % 02/28/25 20: Eos % (Auto) 0.3 % 02/28/25 20: Baso % (Auto) 0.1 % 02/28/25: Neut # (Auto) 8.51 K/uL (1.40-6.50) H 02/28/25 20:41 Lymph # (Auto) 1.10 K/uL (1.20-3.40) L 02/28/25 20:41 Tripp # (Auto) 0.81 K/uL (0.11-0.59) H 02/28/25 20:41 Eos # (Auto) 0.03 K/uL (0.00-0.50) 02/28/25 20: Baso # (Auto) 0.01 K/uL (0.00-0.20) 02/28/25: Immature Gran # (Auto) 0.06 K/uL (0.01-0.20) 02/28/25 20: Absolute Nucleated RBC 0.02 K/uL (0.00-0.12) 02/28/25: Nucleated RBC % (auto) 0.2 % 02/28/25: PT 10.3 Seconds (9.0-12.0) 02/28/25 20:41 INR 0.9 (0.9-1.1) 02/28/25 20:41 Sodium 136 mmol/L (136-145) 02/28/25 20:41 Potassium 4.6 mmol/L (3.5-5.1) 02/28/25 20:41 Chloride 99 mmol/L (98-107) 02/28/25 20:41 Carbon Dioxide 28 mmol/L (21-32) 02/28/25 20:41 Anion Gap 9 (3-11) 02/28/25 20:41 BUN 22 mg/dl (6-23) 02/28/25 20:41 Creatinine 1.19 mg/dl (0.6-1.4) 02/28/25 20:41 Est Cr Clr Drug Dosing 50.1 ml/min 02/28/25 20:41 eGFR 58.75 02/28/25 20:41 BUN/Creatinine Ratio 18.5 (10-20) 02/28/25 20:41 Glucose 301 mg/dl (70-99(Fasting)) H* 02/28/25 20:41 Calcium 9.8 mg/dl (8.6-10.3) 02/28/25 20:41 Total Bilirubin 0.5 mg/dl (0.2-1.0) 02/28/25 20:41 AST 26 U/L (13-39) 02/28/25 20:41 ALT 26 U/L (7-52) 02/28/25 20:41 Alkaline Phosphatase 33 U/L (34-104) L 02/28/25 20:41 Total Creatine Kinase 28 U/L (30-223) L 02/28/25 20:41 Troponin I High Sens 8.8 pg/ml (0-20) 02/28/25 20:41 Total Protein 7.2 gm/dl (6.0-8.3) 02/28/25 20:41 Albumin 4.0 gm/dl (3.4-5.0) 02/28/25 20:41 Globulin 3.2 gm/dl (2.5-4.0) 02/28/25 20:41 Albumin/Globulin Ratio 1.3 (0.9-2) 02/28/25 20:41 TSH 2.682 uIu/ml (0.300-4.500) 02/28/25 20:41 Urine Color Yellow 02/28/25 22:04 Urine Appearance Cloudy (Clear) A 02/28/25 22:04 Urine pH 8.5 (4.5-7.5) H 02/28/25 22:04 Ur Specific [place] 1.018 (1.000-1.030) 02/28/25 22:04 Urine Protein 1+ (Negative) H 02/28/25 22:04 Urine Glucose (UA) 3+ (Negative) H 02/28/25 22:04 Urine Ketones Negative (Negative) 02/28/25 22:04 Urine Blood Negative (Negative) 02/28/25 22:04 Urine Nitrite Negative (Negative) 02/28/25 22:04 Urine Bilirubin Negative (Negative) 02/28/25 22:04 Urine Urobilinogen Negative (Negative) 02/28/25 22:04 Ur Leukocyte Esterase 2+ (Negative) H 02/28/25 22:04 Urine WBC (Auto) >50 /hpf (0-5) H 02/28/25 22:04 Urine RBC (Auto) 0-2 /hpf (0-2) 02/28/25 22:04 U Hyaline Cast (Auto) 0-2 /lpf (0-2) 02/28/25 22:04 U Epithel Cells (Auto) 0-2 /hpf (0-2) 02/28/25 22:04 Urine Bacteria (Auto) 4+ (None Seen) H 02/28/25 22:04 Urine Comment 02/28/25 22:04 Impressions Chest X-Ray 02/28/25 21:01 Exam(s): XR CXR 1 VIEW EXAM: XR Chest, 1 View CLINICAL HISTORY: Reason for exam: weakness. TECHNIQUE: Frontal view of the chest. COMPARISON: No relevant prior studies available. FINDINGS: Lungs: Mild to moderate peribronchial thickening of the central lower lobe bronchi. There are increased interstitial opacities throughout the lungs. No consolidation. Pleural space: Unremarkable. No pneumothorax. Heart: Status post CABG. Mild cardiomegaly. Mediastinum: Status post median sternotomy with sternal wires intact. Normal mediastinal contour. Bones/joints: Unremarkable. No acute fracture. IMPRESSION: Bronchitis, which may be of infectious or inflammatory etiologies with pneumonitis and/or pulmonary edema. No evidence of consolidation or pleural effusion. Electronically signed by: Isabel Santos MD 02/28/25 22:[address] 02/28/25 21:02 Exam(s): CT HEAD Without Contrast EXAM: CT Head Without Intravenous Contrast CLINICAL HISTORY: Reason for exam: weakness. TECHNIQUE: Axial computed tomography images of the head/brain without intravenous contrast. CTDI is 62.5 mGy and DLP is 961.59 mGy-cm. Automated exposure control was utilized for the study. A dose lowering technique was utilized adhering to the principles of ALARA. COMPARISON: No relevant prior studies available. FINDINGS: Brain: Remote ischemic injuries of the right frontal, parietal and occipital lobes with encephalomalacia and gliosis. Remote ischemic injuries of the bilateral cerebellar lobes. No hemorrhage. Advanced nonspecific white matter changes. No edema. Ventricles: Moderate ventriculomegaly. Bones/joints: Unremarkable. No acute fracture. Soft tissues: Unremarkable. Sinuses: Unremarkable as visualized. No acute sinusitis. Mastoid air cells: Unremarkable as visualized. No mastoid effusion. IMPRESSION: No evidence of acute intracranial pathology. Electronically signed by: Isabel Santos MD 02/28/25 23:50 PM ECG Additional Comments: ECG. Sinus tachycardia rate of 103. Left axis deviation. Nonspecific T waves in lateral leads. QTc 440 Code Status & VTE Plan VTE Prophylaxis Plan VTE Prophylaxis will be ordered: Yes
[2025-03-01] MEDS ORDERED: CARBOHYDRATES FOR HYPOGLYCEMIA PO PRN (05:22)
[2025-03-01] MEDS ORDERED: POLYETHYLENE (MIRALAX) 17 GM PACK PO PRN (05:22)
[2025-03-01] MEDS ORDERED: GLUCOSE 40% GEL 15 GM TUBE PO PRN (05:22)
[2025-03-01] MEDS ORDERED: GLUCAGON FOR INJ 1 MG VIAL SQ PRN (05:22)
[2025-03-01] MEDS ORDERED: NITROGLYCERIN SL 0.4 MG/TAB TAB SL PRN (05:22)
[2025-03-01] MEDS ORDERED: ACETAMINOPHEN 325 MG TAB PO PRN (05:22)
[2025-03-01] MEDS ORDERED: ALBUTEROL HFA 8 GM INHALER INH PRN (05:22)
[2025-03-01] MEDS ORDERED: GLUCOSE 10 TAB/TUBE PO PRN (05:22)
[2025-03-01] MEDS ORDERED: DEXTROSE 50% 50 ML SYRINGE IV PRN (05:22)
[2025-03-01] MEDS ORDERED: ALBUTEROL 0.083% NEBU SOLN 3 ML VIAL INH PRN (06:27)
[2025-03-01 07:12] LABS: Hematocrit (blood only) 33.2 % (42.0-52.0); Hemoglobin 10.5 g/dl (14.0-18.0); Immature Granulocytes # (auto) 0.04 K/uL (0.01-0.20); Immature Granulocytes % (auto) 0.4 %; Mean Corpuscular Hemoglobin 28.0 pg (25.0-34.0); Mean Corpuscular Volume 88.5 fL (80.0-100.0); Platelet Count 135 K/uL (130-400); RDW Standard Deviation 53.9 fL (36.4-46.3); Red Blood Count 3.75 M/uL (4.70-6.10); White Blood Count 10.42 K/ul (4.8-10.8)
[2025-03-01 07:30] LABS: Anion Gap 8.0 (3-11); Blood Urea Nitrogen 18.0 mg/dl (6-23); Calcium 9.2 mg/dl (8.6-10.3); Carbon Dioxide 27.0 mmol/L (21-32); Chloride 103.0 mmol/L (98-107); Creatinine Clr Calc Pharmacy 53.7 ml/min; Glucose 221.0 mg/dl (70-99(Fasting)); Iron 20 mcg/dl (35-175); Magnesium 1.9 mg/dl (1.7-2.4); Potassium 4.2 mmol/L (3.5-5.1); Sodium 138.0 mmol/L (136-145); Total Iron Binding Cap Calc 402 mcg/dl (250-450); Transferrin 287 mg/dl (200-360); Transferrin (FE) Percent Satur 5 % (20-50)
[2025-03-01 07:37] LABS: Hemoglobin A1C 8.4 % (4.5-5.6)
[2025-03-01] MEDS: LEVOTHYROXINE SODIUM 25 MCG TABLET PO SCH (07:51)
[2025-03-01] MEDS: POTASSIUM CHLORIDE 10 MEQ TABCR PO SCH (07:52)
[2025-03-01] MEDS: POTASSIUM CHLORIDE 10 MEQ TABCR PO ONE (07:52)
[2025-03-01] MEDS: CYANOCOBALAMIN (B-12) 100 MCG TABLET PO SCH (07:53)
[2025-03-01] MEDS: DOXYCYCLINE HYCLATE 100 MG CAP PO SCH (07:53)
[2025-03-01] MEDS: ASPIRIN 81 MG ECTAB PO SCH (07:53)
[2025-03-01] MEDS: LOSARTAN POTASSIUM 50 MG TAB PO SCH (07:54)
[2025-03-01] MEDS: MAGNESIUM OXIDE 400 MG TAB PO SCH (07:55)
[2025-03-01] MEDS: METOPROLOL SUCC 25MG EXT REL TAB PO SCH (07:55)
[2025-03-01] MEDS: MULTIVITAMIN TAB PO SCH (07:56)
[2025-03-01] MEDS: TICAGRELOR 90 MG TAB PO SCH (07:56)
[2025-03-01] MEDS: TORSEMIDE 20 MG TAB PO SCH (07:57)
[2025-03-01] MEDS: FLUTICASONE FUROATE 100MCG 14 PUFFS/INHALER INH SCH (07:58)
[2025-03-01] MEDS: ENOXAPARIN INJ 40 MG/0.4 ML SYR SQ SCH (07:59)
[2025-03-01] MEDS: UMECLIDINIUM/VILANTEROL 62.5/25MCG 7 PUFFS/INHALER INH SCH (07:59)
[2025-03-01] MEDS: INSULIN ASPART PER UNIT CHARGE SC SCH (08:18)
[2025-03-01] MEDS ORDERED: NON-FORMULARY MEDICATION (Fluticasone-Umeclidin-Vilanter [Trelegy Ellipta] 100-62.5-25 mcg INH SCH (09:00)
[2025-03-01] MEDS: PREGABALIN 100 MG CAP PO SCH (10:52)
[2025-03-01] MEDS: FUROSEMIDE INJ 20 MG/2 ML VIAL IV ONE (15:44)
[2025-03-01] MEDS: TAMSULOSIN HCL 0.4 MG CAP PO SCH (20:38)
[2025-03-01] MEDS: MELATONIN 3 MG TAB PO SCH (20:38)
[2025-03-01] MEDS: ROSUVASTATIN CALCIUM 20 MG TAB PO SCH (20:38)
[2025-03-01] MEDS: FENOFIBRATE NANOCRYSTALLIZED 48 MG TABLET PO SCH (20:38)
[2025-03-01] MEDS: DOCUSATE SODIUM 100 MG CAP PO SCH (20:46)
[2025-03-01] MEDS: cefTRIAXone SODIUM 2,000 MG/50 ML BAG IV SCH (23:30)
--- NOTE | 2025-03-01 23:38 | Electrocardiogram Report ---
Test Reason : Blood Pressure : */* mmHG Vent. Rate : 103 BPM Atrial Rate : 103 BPM P-R Int : 188 ms QRS Dur : 102 ms QT Int : 336 ms P-R-T Axes : 31 -36 99 degrees QTcB Int : 440 ms Sinus tachycardia Left axis deviation Minimal voltage criteria for LVH, may be normal variant ( Kemp product ) Septal infarct , age undetermined Abnormal ECG When compared with ECG of 18-Jun-2024 12:32, Septal infarct is now Present Nonspecific T wave abnormality no longer evident in Inferior leads T wave inversion less evident in Anterior leads Inverted T waves have replaced nonspecific T wave abnormality in Lateral leads Confirmed by Phill Rowland ([id number]) on 03/01/2025 11:38:19 PM Referred By: REFERRED SELF Confirmed By: Phill Rowland
--- NOTE | 2025-03-01 23:41 | Electrocardiogram Report ---
Test Reason : Blood Pressure : */* mmHG Vent. Rate : 100 BPM Atrial Rate : 100 BPM P-R Int : 188 ms QRS Dur : 104 ms QT Int : 378 ms P-R-T Axes : 38 -33 123 degrees QTcB Int : 487 ms Normal sinus rhythm Possible Left atrial enlargement Left axis deviation Septal infarct (cited on or before 28-Feb-2025) Prolonged QT Abnormal ECG When compared with ECG of 28-Feb-2025 20:38, No significant change Confirmed by Phill Rowland ([id number] on 03/01/2025 11:40:51 PM Referred By: REFERRED SELF Confirmed By: Phill Rowland
[2025-03-02 06:40] LABS: Hematocrit (blood only) 31.8 % (42.0-52.0); Hemoglobin 10.3 g/dl (14.0-18.0); Mean Corpuscular Hemoglobin 28.5 pg (25.0-34.0); Mean Corpuscular Volume 87.8 fL (80.0-100.0); Platelet Count 142 K/uL (130-400); RDW Standard Deviation 52.7 fL (36.4-46.3); Red Blood Count 3.62 M/uL (4.70-6.10); White Blood Count 8.42 K/ul (4.8-10.8)
--- NOTE | 2025-03-02 06:52 | Hospitalist Progress Note ---
Date of Service March 02, 2025 Assessment & Plan (1) Weakness: Plan: 89-year-old male with past medical history significant for type 2 diabetes, peripheral vascular disease, chronic respiratory failure with hypoxia uses oxygen while sleeping with CPAP and as needed in the daytime, dyslipidemia, hypothyroidism, COPD, sleep apnea, history of pneumoconiosis, allergic rhinitis, bronchiectasis, bilateral carotid artery disease, bicuspid aortic valve, status post TAVR, CAD status post CABG, history of stroke left-sided weakness, chronic diastolic CHF, GERD, BPH, ataxia., Iron deficiency anemia, history of cerebellar hemorrhage, history of cerebellar stroke, former smoker who lives at home with his and daughter and ambulates slowly with walker with a lot of assistance was brought in by family because of weakness. Daughter says the patient is getting weak for last 2 weeks. But last couple of days got progressively worse. Today when he was sitting on the commode he could not get up which prompted the family to bring him to the hospital. Also sugars were high and blood pressure was high today. Since yesterday having urinary incontinence and today was micturating a lot. Normal bowel movements. No blood in stools or black stools. No chest pain or shortness of breath. No cough. No headache. Has chronic back pain. Has chronic pain in his arms. Appetite is okay. No difficulty swallowing most of the time. No runny nose or sore throat. Patient currently sleepy and daughter helped with H&P. Daughter says recently his Hemoccult was positive but patient refused colonoscopy. And there is a appointment today with hematology for possible IV iron infusion. Weakness Most from UTI and bronchitis, urinary retention Chest x-ray shows bronchitis UA is positive Ucultx positive for Klebsiella oxytoca Pt was found to retain urine, 1L of urine on straight cath, currently w/ Swift cath placed Received Rocephin in the ER Will continue Rocephin and also started on p.o. doxycycline Monitor response, pt is clinically improving Pt used to follow up w/ [facility] - discussed he will need to follow up again. cont. flomax PT OT when stable Diabetes Hold home p.o. medications Sliding scale Will monitor Current HbA1c level 8.4% Obstructive sleep apnea CPAP nightly with oxygen History of CAD s/p CABG Aspirin, Brilinta, beta-mahogany and statin History of CVA Left-sided weakness Ambulates with a walker with a lot of assistance On aspirin, Brilinta and statin BPH On Flomax Monitor for urinary retention. As above, now w/ [place] Hypothyroidism On Synthyroid Diabetic neuropathy On pregabalin Peripheral vascular disease On aspirin, Brilinta and statin Hyperlipidemia On statin and fenofibrate Hypertension Losartan, metoprolol succinate and torsemide Will monitor History of COPD Continue home inhalers Diastolic CHF On torsemide with potassium supplement Monitor for volume overload Iron deficiency anemia Supposed to follow-up with hematology today and possible IV infusion as per family Will check iron studies Can consider iron infusion prior to discharge DVT prophylaxis Lovenox Monitor for any GI bleeding Disposition Med/telemetry Full code per my discussion with the family Admission and Anticipated Discharge Date Admission Date: March 01, 2025 Subjective Pt seen in follow up of UTI, bronchitis, then found to have urinary retention, currently w/ Swift Pt is currently sitting up in bed in NAD, overall feeling better Pt's and daughter present at the bedside. Daughter says pt used to follow with [facility] - advised they will need to follow up. Pt denies any chest pain or shortness of breath, has minimal cough. Denies abd.pain Review of Systems Review of Systems: All systems reviewed & are unremarkable except as noted in Subjective Physical Exam Physical Exam: General- obese, chronically ill appearing M in NAD, on suppl. O2 Head- atraumatic Eyes- PERRL. Neck- supple, no JVD. Lungs- clear to auscultation no wheezing or crackles Heart- regular rhythm; no murmur Abdomen- normal bowel sounds, soft, nontender, no distension Extremities- no pretibial edema, small dry healing wound on left heel Neuro- alert, oriented, hard of hearing, answers appropriately, + left sided weakness Results & Data Results & Data Vital Signs (Past 12 Hours) Vital Signs Temp Pulse Pulse Resp BP Pulse Ox O2 Del Method 03/02/25 04:44 36.4 C L 84 20 131/74 94 Room Air 03/02/25 00:02 36.3 C L 88 20 178/83 H 96 Room Air 03/01/25 21:43 81 03/01/25 21:00 Nasal Cannula 03/01/25 19:32 36.4 C L 103 H 20 166/86 H 96 Room Air O2 Flow Rate 03/02/25 04:44 03/02/25 00:02 03/01/25 21:43 03/01/25 21:00 3 03/01/25 19:32 Laboratory Results 03/02/25 03/01/25 03/01/25 Range/Units 06:25 20:30 17:21 WBC 8.42 (4.8-10.8) K/ul RBC 3.62 L (4.70-6.10) M/uL Hgb 10.3 L (14.0-18.0) g/dl Hct 31.8 L (42.0-52.0) % MCV 87.8 (80.0-100.0) fL MCH 28.5 (25.0-34.0) pg MCHC 32.4 (32.0-36.0) g/dL RDW Std Deviation 52.7 H (36.4-46.3) fL RDW Coeff of Maryan 16.5 H (11.5-14.5) % Plt Count 142 (130-400) K/uL MPV 9.8 (9.4-12.4) fL Immature Gran % (Auto) % Neut % (Auto) % Lymph % (Auto) % [place] % (Auto) % Eos % (Auto) % Baso % (Auto) % Neut # (Auto) (1.40-6.50) K/uL Lymph # (Auto) (1.20-3.40) K/uL [place] # (Auto) (0.11-0.59) K/uL Eos # (Auto) (0.00-0.50) K/uL Baso # (Auto) (0.00-0.20) K/uL Immature Gran # (Auto) (0.01-0.20) K/uL Sodium Pending (136-145) mmol/L Potassium Pending (3.5-5.1) mmol/L Chloride Pending (98-107) mmol/L Carbon Dioxide Pending (21-32) mmol/L Anion Gap Pending (3-11) BUN Pending (6-23) mg/dl Creatinine Pending (0.6-1.4) mg/dl Est Cr Clr Drug Dosing Pending ml/min eGFR Pending BUN/Creatinine Ratio Pending (10-20) Glucose Pending (70-99(Fasting)) mg/dl POC Glucose 298 H 287 H (70-99) mg/dl Estimat Average Glucose mg/dl Hemoglobin A1c (4.5-5.6) % Calcium Pending (8.6-10.3) mg/dl Phosphorus Pending Magnesium Pending (1.7-2.4) mg/dl Iron (35-175) mcg/dl TIBC (250-450) mcg/dl Transferrin (200-360) mg/dl Transferrin % Sat (20-50) % B-Natriuretic Peptide (0-100) pg/ml 03/01/25 03/01/25 03/01/25 Range/Units 15:42 13:34 07:27 WBC (4.8-10.8) K/ul RBC (4.70-6.10) M/uL Hgb (14.0-18.0) g/dl Hct (42.0-52.0) % MCV (80.0-100.0) fL MCH (25.0-34.0) pg MCHC (32.0-36.0) g/dL RDW Std Deviation (36.4-46.3) fL RDW Coeff of Maryan (11.5-14.5) % Plt Count (130-400) K/uL MPV (9.4-12.4) fL Immature Gran % (Auto) % Neut % (Auto) % Lymph % (Auto) % [place] % (Auto) % Eos % (Auto) % Baso % (Auto) % Neut # (Auto) (1.40-6.50) K/uL Lymph # (Auto) (1.20-3.40) K/uL [place] # (Auto) (0.11-0.59) K/uL Eos # (Auto) (0.00-0.50) K/uL Baso # (Auto) (0.00-0.20) K/uL Immature Gran # (Auto) (0.01-0.20) K/uL Sodium (136-145) mmol/L Potassium (3.5-5.1) mmol/L Chloride (98-107) mmol/L Carbon Dioxide (21-32) mmol/L Anion Gap (3-11) BUN (6-23) mg/dl Creatinine (0.6-1.4) mg/dl Est Cr Clr Drug Dosing ml/min eGFR BUN/Creatinine Ratio (10-20) Glucose (70-99(Fasting)) mg/dl POC Glucose 244 H 225 H (70-99) mg/dl Estimat Average Glucose mg/dl Hemoglobin A1c (4.5-5.6) % Calcium (8.6-10.3) mg/dl Phosphorus Magnesium (1.7-2.4) mg/dl Iron (35-175) mcg/dl TIBC (250-450) mcg/dl Transferrin (200-360) mg/dl Transferrin % Sat (20-50) % B-Natriuretic Peptide 209 H (0-100) pg/ml 03/01/25 Range/Units 06:57 WBC 10.42 (4.8-10.8) K/ul RBC 3.75 L (4.70-6.10) M/uL Hgb 10.5 L (14.0-18.0) g/dl Hct 33.2 L (42.0-52.0) % MCV 88.5 (80.0-100.0) fL MCH 28.0 (25.0-34.0) pg MCHC 31.6 L (32.0-36.0) g/dL RDW Std Deviation 53.9 H (36.4-46.3) fL RDW Coeff of Maryan 16.8 H (11.5-14.5) % Plt Count 135 (130-400) K/uL MPV 9.4 (9.4-12.4) fL Immature Gran % (Auto) 0.4 % Neut % (Auto) 77.0 % Lymph % (Auto) 13.4 % [place] % (Auto) 8.9 % Eos % (Auto) 0.1 % Baso % (Auto) 0.2 % Neut # (Auto) 8.02 H (1.40-6.50) K/uL Lymph # (Auto) 1.40 (1.20-3.40) K/uL [place] # (Auto) 0.93 H (0.11-0.59) K/uL Eos # (Auto) 0.01 (0.00-0.50) K/uL Baso # (Auto) 0.02 (0.00-0.20) K/uL Immature Gran # (Auto) 0.04 (0.01-0.20) K/uL Sodium 138 (136-145) mmol/L Potassium 4.2 (3.5-5.1) mmol/L Chloride 103 (98-107) mmol/L Carbon Dioxide 27 (21-32) mmol/L Anion Gap 8 (3-11) BUN 18 (6-23) mg/dl Creatinine 1.11 (0.6-1.4) mg/dl Est Cr Clr Drug Dosing 53.7 ml/min eGFR 63.87 BUN/Creatinine Ratio 16.2 (10-20) Glucose 221 H (70-99(Fasting)) mg/dl POC Glucose (70-99) mg/dl Estimat Average Glucose 194 mg/dl Hemoglobin A1c 8.4 H (4.5-5.6) % Calcium 9.2 (8.6-10.3) mg/dl Phosphorus Magnesium 1.9 (1.7-2.4) mg/dl Iron 20 L (35-175) mcg/dl TIBC 402 (250-450) mcg/dl Transferrin 287 (200-360) mg/dl Transferrin % Sat 5 L (20-50) % B-Natriuretic Peptide (0-100) pg/ml Medications Administered Current Inpatient Medications Acetaminophen (Acetaminophen 325 Mg Tab) 650 mg PO Q4H PRN PRN Reason: Pain or Fever Stop: 03/31/25 05:21 Albuterol (Albuterol 0.083% Nebu Soln 3 Ml Vial) 1.25 mg INH Q4H PRN PRN Reason: sob/wheezing Stop: 03/31/25 06:26 Albuterol (Albuterol Hfa 8 Gm Inhaler) 2 puffs INH Q4H PRN PRN Reason: sob/wheezing Stop: 03/31/25 05:21 Aspirin (Aspirin 81 Mg Ectab) 81 mg PO QAM [facility] Stop: 03/31/25 08:59 Last Admin: 03/01/25 07:53 Dose: 81 mg Cyanocobalamin (Cyanocobalamin (B-12) 100 Mcg Tablet) 100 mcg PO QAM [facility] Stop: 03/31/25 08:59 Last Admin: 03/01/25 07:53 Dose: 100 mcg Dextrose (Dextrose 50% 50 Ml Syringe) 25 - 50 ml IV UD PRN; Protocol PRN Reason: Hypoglycemia Protocol Stop: 03/31/25 05:21 Docusate Sodium (Docusate Sodium 100 Mg Cap) 200 mg PO HS [facility] Stop: 03/31/25 20:59 Last Admin: 03/01/25 20:46 Dose: 200 mg Doxycycline Hyclate (Doxycycline Hyclate 100 Mg Cap) 100 mg PO BID [facility] Stop: 03/06/25 08:59 Last Admin: 03/01/25 20:38 Dose: 100 mg Enoxaparin Sodium (Enoxaparin Inj 40 Mg/0.4 Ml Syr) 40 mg SQ Q24H [facility] Stop: 03/31/25 08:59 Last Admin: 03/01/25 07:59 Dose: 40 mg Fenofibrate (Fenofibrate Nanocrystallized 48 Mg Tablet) 48 mg PO QPM [facility] Stop: 03/31/25 20:59 Last Admin: 03/01/25 20:38 Dose: 48 mg Fluticasone Furoate (Fluticasone Furoate 100mcg 14 Puffs/Inhaler) 1 puffs INH DAILY [facility] Stop: 03/31/25 08:59 Last Admin: 03/01/25 07:58 Dose: 1 puffs Glucagon (Glucagon For Inj 1 Mg Vial) 1 mg SQ UD PRN; Protocol PRN Reason: Hypoglycemia Protocol Stop: 03/31/25 05:21 Glucose (Glucose 40% Gel 15 Gm Tube) 15 - 30 gm PO UD PRN; Protocol PRN Reason: Hypoglycemia Protocol Stop: 03/31/25 05:21 Glucose (Glucose 10 Tab/Tube) 4 - 8 tab PO UD PRN; Protocol PRN Reason: Hypoglycemia Protocol Stop: 03/31/25 05:21 Ceftriaxone Sodium (Rocephin) 2,000 mg in 50 mls @ 100 mls/hr IV Q24H [facility] Stop: 03/06/25 21:59 Last Infusion: 03/02/25 00:00 Dose: Infused Insulin Aspart (Insulin Aspart Per Unit Charge) 0 units SC ACHS [facility] Stop: 03/31/25 07:29 Last Admin: 03/01/25 20:45 Dose: 5 units Levothyroxine Sodium (Levothyroxine Sodium 25 Mcg Tablet) 25 mcg PO DAILYBB [facility] Stop: 03/31/25 06:29 Last Admin: 03/02/25 06:18 Dose: 25 mcg Losartan Potassium (Losartan Potassium 50 Mg Tab) 50 mg PO QAM [facility] Stop: 03/31/25 08:59 Last Admin: 03/01/25 07:54 Dose: 50 mg Magnesium Oxide (Magnesium Oxide 400 Mg Tab) 400 mg PO [facility] Stop: 03/31/25 08:59 Last Admin: 03/01/25 20:38 Dose: 400 mg Melatonin (Melatonin 3 Mg Tab) 9 mg PO [facility] Stop: 03/31/25 20:59 Last Admin: 03/01/25 20:38 Dose: 9 mg Metoprolol Succinate (Metoprolol Succ 25mg Ext Rel Tab) 12.5 mg PO DAILY [facility] Stop: 03/31/25 08:59 Last Admin: 03/01/25 07:55 Dose: 12.5 mg Miscellaneous (Carbohydrates For Hypoglycemia ) 15 - 30 gm PO UD PRN PRN Reason: Hypoglycemia Protocol Stop: 03/31/25 05:21 [facility]ivit[facility] ([facility]ivitamin Tab) [facility] [place]: 03/31/25 08:59 Last Admin: 03/01/25 07:56 Dose: 1 tab Nitroglycerin (Nitroglycerin Sl 0.4 Mg/Tab Tab) 0.4 mg SL Q5M PRN PRN Reason: Chest Pain Stop: 03/31/25 05:21 Pantoprazole Sodium (Pantoprazole 40 Mg Tab) 40 mg PO [facility] Stop: 03/31/25 08:59 Last Admin: 03/01/25 07:56 Dose: 40 mg Polyethylene Glycol (Polyethylene (Miralax) 17 Gm Pack) 17 gm PO DAILY PRN PRN Reason: Constipation Stop: 03/31/25 05:21 Potassium Chloride (Potassium Chloride 10 Meq Tabcr) 10 meq PO [facility] Stop: 03/31/25 08:59 Last Admin: 03/01/25 07:52 Dose: 10 meq Pregabalin (Pregabalin 100 Mg Cap) 100 mg PO [facility] Stop: 03/31/25 08:59 Last Admin: 03/01/25 20:46 Dose: 100 mg Rosuvastatin Calcium (Rosuvastatin Calcium 20 Mg Tab) 40 mg PO [facility] Stop: 03/31/25 20:59 Last Admin: 03/01/25 20:38 Dose: 40 mg Tamsulosin HCl (Tamsulosin Hcl 0.4 Mg Cap) 0.4 mg PO [facility] Stop: 03/31/25 20:59 Last Admin: 03/01/25 20:38 Dose: 0.4 mg Ticagrelor (Ticagrelor 90 Mg Tab) 90 mg PO [facility] Stop: 03/31/25 08:59 Last Admin: 03/01/25 20:39 Dose: 90 mg Torsemide (Torsemide 20 Mg Tab) 20 mg PO QAM [facility] Stop: 03/31/25 08:59 Last Admin: 03/01/25 07:57 Dose: 20 mg Umeclidinium/Vilanterol (Umeclidinium/Vilanterol 62.5/25mcg 7 Puffs/Inhaler) 1 puffs INH DAILY [facility] Stop: 03/31/25 08:59 Last Admin: 03/01/25 07:59 Dose: 1 puffs
[2025-03-02 07:11] LABS: Anion Gap 8.0 (3-11); Blood Urea Nitrogen 23.0 mg/dl (6-23); Calcium 9.6 mg/dl (8.6-10.3); Carbon Dioxide 30.0 mmol/L (21-32); Chloride 99.0 mmol/L (98-107); Creatinine Clr Calc Pharmacy 41.7 ml/min; Glucose 228.0 mg/dl (70-99(Fasting)); Magnesium 2.0 mg/dl (1.7-2.4); Potassium 3.8 mmol/L (3.5-5.1); Sodium 137.0 mmol/L (136-145)
[2025-03-03 07:56] LABS: Hematocrit (blood only) 31.8 % (42.0-52.0); Hemoglobin 9.8 g/dl (14.0-18.0); Mean Corpuscular Hemoglobin 27.5 pg (25.0-34.0); Mean Corpuscular Volume 89.3 fL (80.0-100.0); Platelet Count 147 K/uL (130-400); RDW Standard Deviation 54.4 fL (36.4-46.3); Red Blood Count 3.56 M/uL (4.70-6.10); White Blood Count 7.29 K/ul (4.8-10.8)
--- NOTE | 2025-03-03 07:56 | Hospitalist Progress Note ---
Date of Service March 03, 2025 Assessment & Plan (1) Weakness: Plan: 89-year-old male with past medical history significant for type 2 diabetes, peripheral vascular disease, chronic respiratory failure with hypoxia uses oxygen while sleeping with CPAP and as needed in the daytime, dyslipidemia, hypothyroidism, COPD, sleep apnea, history of pneumoconiosis, allergic rhinitis, bronchiectasis, bilateral carotid artery disease, bicuspid aortic valve, status post TAVR, CAD status post CABG, history of stroke left-sided weakness, chronic diastolic CHF, GERD, BPH, ataxia., Iron deficiency anemia, history of cerebellar hemorrhage, history of cerebellar stroke, former smoker who lives at home with his and daughter and ambulates slowly with walker with a lot of assistance was brought in by family because of weakness. Daughter says the patient is getting weak for last 2 weeks. But last couple of days got progressively worse. Today when he was sitting on the commode he could not get up which prompted the family to bring him to the hospital. Also sugars were high and blood pressure was high today. Since yesterday having urinary incontinence and today was micturating a lot. Normal bowel movements. No blood in stools or black stools. No chest pain or shortness of breath. No cough. No headache. Has chronic back pain. Has chronic pain in his arms. Appetite is okay. No difficulty swallowing most of the time. No runny nose or sore throat. Patient currently sleepy and daughter helped with H&P. Daughter says recently his Hemoccult was positive but patient refused colonoscopy. And there is a appointment today with hematology for possible IV iron infusion. Weakness Most from UTI and bronchitis, urinary retention Chest x-ray shows bronchitis UA is positive Ucultx positive for Klebsiella oxytoca Pt was found to retain urine, 1L of urine on straight cath, currently w/ [place] cath placed Received Rocephin in the ER Will continue Rocephin and also started on p.o. doxycycline Monitor response, pt is clinically improving Pt used to follow up w/ [place] [facility] - discussed he will need to follow up again. cont. flomax. Now reports discomfort w/ catheter, will consult w/ urology now PT OT when stable Diabetes Hold home p.o. medications Sliding scale Will monitor Current HbA1c level 8.4% Obstructive sleep apnea CPAP nightly with oxygen History of CAD s/p CABG Aspirin, Brilinta, beta-mahogany and statin History of CVA Left-sided weakness Ambulates with a walker with a lot of assistance On aspirin, Brilinta and statin BPH On Flomax Monitor for urinary retention. As above, now w/ [place] Hypothyroidism On Synthyroid Diabetic neuropathy On pregabalin Peripheral vascular disease On aspirin, Brilinta and statin Hyperlipidemia On statin and fenofibrate Hypertension Losartan, metoprolol succinate and torsemide Will monitor History of COPD Continue home inhalers Diastolic CHF On torsemide with potassium supplement Monitor for volume overload Iron deficiency anemia Supposed to follow-up with hematology today and possible IV infusion as per family Will check iron studies Can consider iron infusion prior to discharge DVT prophylaxis Lovenox Monitor for any GI bleeding Disposition Med/telemetry Full code per admitting provider's discussion with the family Admission and Anticipated Discharge Date Admission Date: March 01, 2025 Subjective Pt seen in follow up of UTI, bronchitis, then found to have urinary retention, currently w/ Swift Pt is currently sitting up in bed in [facility], but reports that catheter is bothering him. Denies abdominal pain though. Yesterday , daughter mentioned pt used to follow with [facility] - advised they will need to follow up. will ask them to see the pt now Pt denies any chest pain or shortness of breath, has minimal cough. Review of Systems Review of Systems: All systems reviewed & are unremarkable except as noted in Subjective Physical Exam Physical Exam: General- obese, chronically ill appearing M in NAD, on suppl. O2 Head- atraumatic Eyes- PERRL. Neck- supple, no JVD. Lungs- clear to auscultation no wheezing or crackles Heart- regular rhythm; no murmur Abdomen- normal bowel sounds, soft, nontender, no distension Extremities- no pretibial edema, small dry healing wound on left heel Neuro- alert, oriented, hard of hearing, answers appropriately, + left sided weakness (chronic from previous CVA) Results & Data Results & Data Vital Signs (Past 12 Hours) Vital Signs Temp Pulse Pulse Resp BP Pulse Ox O2 Del Method 03/03/25 07:44 36.5 C 81 20 111/66 95 Nasal Cannula 03/03/25 07:18 93 H 03/03/25 04:00 36.3 C L 91 H 20 126/73 96 CPAP 03/03/25 02:49 87 18 92 03/02/25 23:37 36.7 C 89 20 133/69 92 CPAP 03/02/25 22:30 87 20 94 03/02/25 21:44 91 H 03/02/25 19:56 37.2 C 95 H 20 146/76 H 95 Nasal Cannula O2 Flow Rate 03/03/25 07:44 2 03/03/25 07:18 03/03/25 04:00 2 03/03/25 02:49 4 03/02/25 23:37 2 03/02/25 22:30 4 03/02/25 21:44 03/02/25 19:56 Laboratory Results 03/03/25 03/02/25 03/02/25 Range/Units 07:26 20:02 18:33 WBC Pending RBC Pending Hgb Pending Hct Pending MCV Pending MCH Pending MCHC Pending Plt Count Pending Sodium Pending Potassium Pending Chloride Pending Carbon Dioxide Pending Anion Gap Pending BUN Pending Creatinine Pending Est Cr Clr Drug Dosing Pending eGFR Pending BUN/Creatinine Ratio Pending Glucose Pending POC Glucose 282 H 309 H* (70-99) mg/dl Calcium Pending Phosphorus Pending Magnesium Pending 03/02/25 03/02/25 03/02/25 Range/Units 17:11 17:10 12:18 WBC RBC Hgb Hct MCV MCH MCHC Plt Count Sodium Potassium Chloride Carbon Dioxide Anion Gap BUN Creatinine Est Cr Clr Drug Dosing eGFR BUN/Creatinine Ratio Glucose POC Glucose 304 H* 307 H* 291 H (70-99) mg/dl Calcium Phosphorus Magnesium 03/02/25 Range/Units 08:08 WBC RBC Hgb Hct MCV MCH MCHC Plt Count Sodium Potassium Chloride Carbon Dioxide Anion Gap BUN Creatinine Est Cr Clr Drug Dosing eGFR BUN/Creatinine Ratio Glucose POC Glucose 228 H (70-99) mg/dl Calcium Phosphorus Magnesium Medications Administered Current Inpatient Medications Acetaminophen (Acetaminophen 325 Mg Tab) 650 mg PO Q4H PRN PRN Reason: Pain or Fever Stop: 03/31/25 05:21 Albuterol (Albuterol 0.083% Nebu Soln 3 Ml Vial) 1.25 mg INH Q4H PRN PRN Reason: sob/wheezing Stop: 03/31/25 06:26 Albuterol (Albuterol Hfa 8 Gm Inhaler) 2 puffs INH Q4H PRN PRN Reason: sob/wheezing Stop: 03/31/25 05:21 Aspirin (Aspirin 81 Mg Ectab) 81 mg PO QAM [facility] Stop: 03/31/25 08:59 Last Admin: 03/02/25 08:57 Dose: 81 mg Cyanocobalamin (Cyanocobalamin (B-12) 100 Mcg Tablet) 100 mcg PO QAM [facility] Stop: 03/31/25 08:59 Last Admin: 03/02/25 08:57 Dose: 100 mcg Dextrose (Dextrose 50% 50 Ml Syringe) 25 - 50 ml IV UD PRN; Protocol PRN Reason: Hypoglycemia Protocol Stop: 03/31/25 05:21 Docusate Sodium (Docusate Sodium 100 Mg Cap) 200 mg PO HS [facility] Stop: 03/31/25 20:59 Last Admin: 03/02/25 20:14 Dose: 200 mg Doxycycline Hyclate (Doxycycline Hyclate 100 Mg Cap) 100 mg PO BID [facility] Stop: 03/06/25 08:59 Last Admin: 03/02/25 20:16 Dose: 100 mg Enoxaparin Sodium (Enoxaparin Inj 40 Mg/0.4 Ml Syr) 40 mg SQ Q24H [facility] Stop: 03/31/25 08:59 Last Admin: 03/02/25 08:59 Dose: 40 mg Fenofibrate (Fenofibrate Nanocrystallized 48 Mg Tablet) 48 mg PO QPM [facility] Stop: 03/31/25 20:59 Last Admin: 03/02/25 20:17 Dose: 48 mg Fluticasone Furoate (Fluticasone Furoate 100mcg 14 Puffs/Inhaler) 1 puffs INH DAILY [facility] Stop: 03/31/25 08:59 Last Admin: 03/02/25 09:57 Dose: 1 puffs Glucagon (Glucagon For Inj 1 Mg Vial) 1 mg SQ UD PRN; Protocol PRN Reason: Hypoglycemia Protocol Stop: 03/31/25 05:21 Glucose (Glucose 40% Gel 15 Gm Tube) 15 - 30 gm PO UD PRN; Protocol PRN Reason: Hypoglycemia Protocol Stop: 03/31/25 05:21 Glucose (Glucose 10 Tab/Tube) 4 - 8 tab PO UD PRN; Protocol PRN Reason: Hypoglycemia Protocol Stop: 03/31/25 05:21 Ceftriaxone Sodium (Rocephin) 2,000 mg in 50 mls @ 100 mls/hr IV Q24H [facility] Stop: 03/06/25 21:59 Last Infusion: 03/02/25 22:45 Dose: Infused Insulin Aspart (Insulin Aspart Per Unit Charge) 0 units SC ACHS [facility] Stop: 03/31/25 07:29 Last Admin: 03/02/25 20:15 Dose: 5 units Levothyroxine Sodium (Levothyroxine Sodium 25 Mcg Tablet) 25 mcg PO DAILYBB [facility] Stop: 03/31/25 06:29 Last Admin: 03/03/25 06:20 Dose: 25 mcg Losartan Potassium (Losartan Potassium 50 Mg Tab) 50 mg PO QAM [facility] Stop: 03/31/25 08:59 Last Admin: 03/02/25 08:57 Dose: 50 mg Magnesium Oxide (Magnesium Oxide 400 Mg Tab) 400 mg PO AMHS [facility] Stop: 03/31/25 08:59 Last Admin: 03/02/25 20:16 Dose: 400 mg Melatonin (Melatonin 3 Mg Tab) 9 mg PO HS [facility] Stop: 03/31/25 20:59 Last Admin: 03/02/25 20:15 Dose: 9 mg Metoprolol Succinate (Metoprolol Succ 25mg Ext Rel Tab) 12.5 mg PO DAILY [facility] Stop: 03/31/25 08:59 Last Admin: 03/02/25 08:57 Dose: 12.5 mg Miscellaneous (Carbohydrates For Hypoglycemia ) 15 - 30 gm PO UD PRN PRN Reason: Hypoglycemia Protocol Stop: 03/31/25 05:21 Multivitamins (Multivitamin Tab) 1 tab PO QAM [facility] Stop: 03/31/25 08:59 Last Admin: 03/02/25 08:57 Dose: 1 tab Nitroglycerin (Nitroglycerin Sl 0.4 Mg/Tab Tab) 0.4 mg SL Q5M PRN PRN Reason: Chest Pain Stop: 03/31/25 05:21 Pantoprazole Sodium (Pantoprazole 40 Mg Tab) 40 mg PO QAM [facility] Stop: 03/31/25 08:59 Last Admin: 03/02/25 08:57 Dose: 40 mg Polyethylene Glycol (Polyethylene (Miralax) 17 Gm Pack) 17 gm PO DAILY PRN PRN Reason: Constipation Stop: 03/31/25 05:21 Potassium Chloride (Potassium Chloride 10 Meq Tabcr) 10 meq PO QAM [facility] Stop: 03/31/25 08:59 Last Admin: 03/02/25 09:05 Dose: 10 meq Pregabalin (Pregabalin 100 Mg Cap) 100 mg PO [facility] Stop: 03/31/25 08:59 Last Admin: 03/02/25 20:16 Dose: 100 mg Rosuvastatin Calcium (Rosuvastatin Calcium 20 Mg Tab) 40 mg PO [facility] Stop: 03/31/25 20:59 Last Admin: 03/02/25 20:16 Dose: 40 mg Tamsulosin HCl (Tamsulosin Hcl 0.4 Mg Cap) 0.4 mg PO [facility] Stop: 03/31/25 20:59 Last Admin: 03/02/25 20:16 Dose: 0.4 mg Ticagrelor (Ticagrelor 90 Mg Tab) 90 mg PO [facility] Stop: 03/31/25 08:59 Last Admin: 03/02/25 20:16 Dose: 90 mg Torsemide (Torsemide 20 Mg Tab) 20 mg PO [facility] Stop: 03/31/25 08:59 Last Admin: 03/02/25 08:57 Dose: 20 mg Umeclidinium/Vilanterol (Umeclidinium/Vilanterol 62.5/25mcg 7 Puffs/Inhaler) 1 puffs INH DAILY [facility] Stop: 03/31/25 08:59 Last Admin: 03/02/25 09:58 Dose: 1 puffs
[2025-03-03 08:48] LABS: Anion Gap 11.0 (3-11); Blood Urea Nitrogen 35.0 mg/dl (6-23); Calcium 9.7 mg/dl (8.6-10.3); Carbon Dioxide 28.0 mmol/L (21-32); Chloride 99.0 mmol/L (98-107); Glucose 256.0 mg/dl (70-99(Fasting)); Magnesium 2.0 mg/dl (1.7-2.4); Potassium 4.0 mmol/L (3.5-5.1); Sodium 138.0 mmol/L (136-145)
[2025-03-03 09:18] LABS: Creatinine Clr Calc Pharmacy 41.6 ml/min
[2025-03-03] MEDS ORDERED: PHARMACY GLYCEMIC MGMT CONSULT PRN (12:33)
--- NOTE | 2025-03-03 13:50 | Pharmacy Report ---
Pharmacy Glycemic Short Note 2 - Date of Service March 03, 2025 - Glycemic Short BSG Results (Last 24 hours): 03/02/25 03/02/25 03/02/25 17:10 17:11 18:33 Glucose POC Glucose 307 H* 304 H* 309 H* 03/02/25 03/03/25 03/03/25 20:02 07:26 08:07 Glucose 256 H POC Glucose 282 H 260 H 03/03/25 03/03/25 12:17 12:20 Glucose POC Glucose 365 H* 390 H* OUTPATIENT ANTIDIABETIC REGIMEN: * metformin * linagliptin A1c = 8.4% ASSESSMENT: * Jewel is a 89 yo T2DM brought to the ER due to worsening weakness. Hyperglycemic on arrival. * Jewel received a total of 27 units of short-acting insulin yesterday with BSGs ranging from 228 - 307 mg/dL. No basal insulin thus far this admission. * Fasting BSG of 260 mg/dL this morning. Patient tolerated Lantus 15 units daily during July 2024 admission, which is ~0.2 unit/kg. Will trial this dose. * Tighten Novolog CF and CR to weight/stress 2. Will schedule an overnight BSG check at midnight due to severe hyperglycemia. PLAN FOR INPATIENT GLYCEMIC CONTROL: * Hold outpatient oral diabetes medications * Basal insulin * Lantus 15 units SQ x 1 * Further basal dosing TBD * Bolus insulin * NovoLog per scale ACHS or Q6hrs while NPO * Goal Range: Low 120 mg/dL - High 150 mg/dL * Correction Factor: 25 mg/dL/unit * Nutritional / Prandial insulin per carb ratio of 1 unit per 8 grams CHO consumed
[2025-03-03] MEDS: LANTUS PER UNIT CHARGE SC ONE (14:14)
[2025-03-03] MEDS: SODIUM CHLORIDE 0.9% 500 ML IV ONE (17:58)
[2025-03-04] MEDS: INSULIN ASPART PER UNIT CHARGE SC SCH (00:02)
[2025-03-04 07:17] LABS: Hematocrit (blood only) 29.5 % (42.0-52.0); Hemoglobin 9.6 g/dl (14.0-18.0); Mean Corpuscular Hemoglobin 28.7 pg (25.0-34.0); Mean Corpuscular Volume 88.1 fL (80.0-100.0); Platelet Count 169 K/uL (130-400); RDW Standard Deviation 52.0 fL (36.4-46.3); Red Blood Count 3.35 M/uL (4.70-6.10); White Blood Count 6.79 K/ul (4.8-10.8)
[2025-03-04 07:59] LABS: Anion Gap 9.0 (3-11); Blood Urea Nitrogen 37.0 mg/dl (6-23); Calcium 9.6 mg/dl (8.6-10.3); Carbon Dioxide 29.0 mmol/L (21-32); Chloride 101.0 mmol/L (98-107); Creatinine Clr Calc Pharmacy 47.3 ml/min; Glucose 246.0 mg/dl (70-99(Fasting)); Magnesium 2.0 mg/dl (1.7-2.4); Potassium 3.9 mmol/L (3.5-5.1); Sodium 139.0 mmol/L (136-145)
[2025-03-04] MEDS: LANTUS PER UNIT CHARGE SC SCH ×2 (09:14→21:46)
--- NOTE | 2025-03-04 10:06 | Urology Consultation ---
Date of Consultation March 04, 2025 Assessment & Plan (1) BPH w urinary obs/LUTS: (2) Complicated urinary tract infection: (3) Urinary retention: Plan 89yo male admitted with weakness secondary to UTI and bronchitis -urology was consulted for urinary retention. Pt afebrile, hemodynamically stable. Creatinine normal. Urinary retention is currently managed with a Swift catheter. The catheter is draining appropriately-urine is clear yellow. Recommend maintaining Swift catheter for at least 1 week. Continue tamsulosin and consider addition of Finasteride for max medical therapy for the prostate. Depending on clinical course, could possibly have a voiding trial prior to discharge or we can arrange as outpatient in the urology office. Continue antibiotics for treatment of infections. Message sent to arrange outpatient follow-up with our service. Urology will sign off, can recall as needed. History of Present Illness Attending Physician: Marv Tate MD History of Present Illness 89 year old male admitted on 03/01/25 with weakness secondary to UTI and bronchitis. Urology was consulted for urinary retention. Hx of BPH on Flomax. Has previously followed with our office. Pt was found to be in urinary retention- was straight cathed for >1L. Swift catheter placed by nursing staff on 03/02/25. Catheter is currently draining clear yellow urine. Urine culture 02/18 grew Klebsiella-he continues on doxycycline and ceftriaxone Blood cultures are preliminary no growth x 48 hours Patient was seen at bedside today. He is awake and eating breakfast on arrival. No acute distress. Nurse at bedside. Tolerating the catheter well. No complaints of pain at this time. Swift draining clear yellow urine. Patient is afebrile and hemodynamically stable at present. Labs today show no leukocytosis and normal renal function. Allergies Allergy/AdvReac Type Severity Reaction Status Date / Time empagliflozin Allergy Severe rash, skin Verified 02/21/25 13:02 [From Jardiance] irritation at the groin codeine AdvReac Severe Anxiety Verified 02/21/25 13:02 symptoms hydrocodone AdvReac Severe Anxiety, Verified 02/21/25 13:02 insomnia Iodinated Contrast Media AdvReac Severe drowsy, Verified 02/21/25 13:02 "wipes patient out the following day" tramadol AdvReac Severe unable to Verified 02/21/25 13:02 move/somnolence camphor [From Biofreeze] AdvReac Intermediate Itching Verified 02/21/25 13:02 guaifenesin [From Mucinex] AdvReac Intermediate inability Verified 02/21/25 13:02 to walk, confusion menthol [From Biofreeze] AdvReac Intermediate Itching Verified 02/21/25 13:02 opiate AdvReac Severe unable to Uncoded 02/21/25 13:02 tolerate any pain medication Home Medications Medication Instructions Recorded Confirmed Type fluticasone fur. 100 mcg-umeclid 1 inh inhalation QAM #60 ea 01/06/23 03/01/25 Rx 62.5 mcg-vilant 25 mcg inhalat.powder (Trelegy Ellipta) levothyroxine 25 mcg tablet 25 mcg PO QAM #30 tabs 01/06/23 03/01/25 Rx multivitamin 1 tab PO QAM #30 tabs 01/06/23 03/01/25 Rx pantoprazole 40 mg tablet,delayed 40 mg PO QAM #30 tabs 01/06/23 03/01/25 Rx release potassium chloride 10 mEq 10 meq PO QAM #30 caps 01/06/23 03/01/25 Rx capsule,extended release torsemide 20 mg tablet 20 mg PO QAM #30 tabs 01/06/23 03/01/25 Rx metformin 500 mg tablet 1,000 mg PO QAM 02/04/23 03/01/25 History acetaminophen 500 mg tablet 500 - 1,000 mg PO UD pain 06/12/24 03/01/25 History (Tylenol Extra Strength) albuterol sulfate 1.25 mg/3 mL 1.25 mg inhalation Q4H PRN 06/12/24 03/01/25 History solution for nebulization sob/wheezing albuterol sulfate 90 mcg/actuation 2 inh inhalation Q4H PRN 06/12/24 03/01/25 History aerosol inhaler sob/wheezing docusate sodium 100 mg capsule 200 mg PO HS 06/12/24 03/01/25 History fenofibrate nanocrystallized 48 mg 48 mg PO QPM 06/12/24 03/01/25 History tablet linagliptin 5 mg tablet (Tradjenta) 5 mg PO QAM 06/12/24 03/01/25 History losartan 50 mg tablet 50 mg PO QAM 06/12/24 03/01/25 History melatonin 10 mg tablet 10 mg PO HS 06/12/24 03/01/25 History metformin 500 mg tablet 500 mg PO QPM 06/12/24 03/01/25 History nitroglycerin 0.4 mg sublingual 0.4 mg sublingual UD PRN Chest Pain 06/12/24 03/01/25 History tablet (Nitrostat) ondansetron HCl 4 mg tablet 4 mg PO Q6H PRN nausea/vomitting 06/12/24 03/01/25 History polyethylene glycol 3350 17 8.5 g PO QAM PRN ud - constipation 06/12/24 03/01/25 History gram/dose oral powder (Miralax) pregabalin 100 mg capsule (Lyrica) 100 mg PO AMHS 06/12/24 03/01/25 History rosuvastatin 40 mg tablet 40 mg PO HS 06/12/24 03/01/25 History tamsulosin 0.4 mg capsule 0.4 mg PO HS 06/12/24 03/01/25 History aspirin 81 mg tablet,delayed 81 mg PO QAM 07/04/24 03/01/25 History release cyanocobalamin (vitamin B-12) 100 mcg PO QAM 12/19/24 03/01/25 History 1,000 mcg tablet (Vitamin B-12) magnesium oxide 400 mg (241.3 mg 400 mg PO AMHS 03/01/25 03/01/25 History magnesium) tablet metoprolol succinate 25 mg 12.5 mg PO DAILY 03/01/25 03/01/25 History tablet,extended release 24 hr ticagrelor 90 mg tablet (Brilinta) 90 mg PO AMHS 03/01/25 03/01/25 History Patient History Medical History 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 pt can ambulate short distances with walker and x1-2 person assist depending on his tolerability. mild slurred/slow/weak speech at times. pt will sometimes cough when eating/drinking. has never aspirated on his food/drink Hx of myocardial infarction 1998 - treated w/ medication. cardiac cath done - no stents ([facility]) 2000 - CABG x4 vessels Congestive heart failure chronic diaystolic heart failure On home oxygen therapy 3lpm via n/c PRN throughout the day - rarely uses. Urinary incontinence Renal cyst monitoring PAD (peripheral artery disease) On anticoagulant therapy plavix daily ERINN (obstructive sleep apnea) CPAP with O2 3.5L HS Hypothyroidism GERD (gastroesophageal reflux disease) "belches often" Hyperlipidemia Diabetes mellitus, type 2 Chronic obstructive pulmonary disease stable with current treatment, acute flare up (last had Mid-May 2024) and started on albuterol nebulizers PRN. BPH (benign prostatic hyperplasia) Amputated finger right hand, middle finger (~1960 work accident) Carotid artery disease s/p Left CEA (2011), right (2012) Rest pain of both lower extremities due to atherosclerosis Aortic stenosis s/p TAVR Surgical History History of nasal septoplasty History of tonsillectomy Status post uvulopalatopharyngoplasty remote history S/P vascular surgery "kissing cousin stents placed" Dr Montana bilateral legs S/P TURP S/P laminectomy with spinal fusion x2 (lumbar) History of cataract surgery bilateral S/P TAVR (transcatheter aortic valve replacement) AVR [facility] [place] after 2006 (pig valve?) S/P right rotator cuff repair History of CEA (carotid endarterectomy) Left - 2011 Right - 2012 H/O vascular surgery (05/26/22) Right Common Femoral Artery Endarterectomy,(Right) with bovine patch - Maurizio Montana MD sBilateral Iliac Stents(Bilateral) - Maurizio Montana MD History of anesthesia reaction Slow to wake History of cholecystectomy History of colonoscopy History of cardiac cath Stent x1 (2006) History of coronary artery bypass graft CABG x4 (2000) Family History Brother Diabetes Coronary heart disease, Onset Age: 60 Brother Diabetes Coronary heart disease, Onset Age: 50 Mother Diabetes Other No family history of adverse response to anesthesia Social History Smoking Status: Former smoker Tobacco Type: Cigarettes packs per day: 4; Second Hand Exposure: No; Do You Dip or Chew Tobacco: No; Hx Alcohol Use: No Hx Substance Use: No Preferred Language: Greek Communication Ability: Effective Visual Impairment: Severely Limited Hearing Ability: Use of Hearing Aid Retail Sales Consultant Required: No Beliefs That Will Affect Care: None marital status: Current Living Situation: Spouse and Family current occupational status: retired Feels Safe at Home: Yes Safety Concerns: Feels Safe At This Time Diet: regular caffeine: Yes during the past year weight has: remained stable Assistive Devices: CPAP, Denture - Upper, Denture - Lower, Glasses, Oxygen - at Night and Walker Review of Systems 2 Review of Systems: All systems reviewed & are unremarkable except as noted in HPI & below Physical Exam Constitutional: no acute distress Respiratory: no respiratory distress and no labored breathing Neurologic: awake Psychiatric: Orientation: alert, oriented to person and cooperative Genitourinary: Swift intact Results & Data Vital Signs (Past 12 Hours) Vital Signs Temp Pulse Pulse Resp BP BP Pulse Ox 03/04/25 07:38 36.8 C 81 14 127/66 96 03/04/25 07:31 78 03/04/25 03:51 36.4 C L 85 18 132/81 96 03/03/25 23:07 36.6 C 91 H 20 123/59 L 91 03/03/25 21:49 89 03/03/25 21:36 88 18 96 O2 Del Method O2 Flow Rate 03/04/25 07:38 Nasal Cannula 3 03/04/25 07:31 03/04/25 03:51 Nasal Cannula 3 03/03/25 23:07 CPAP 03/03/25 21:49 03/03/25 21:36 4 PG Care Time/CCT Total # of Minutes Spent Total Time Spent with Patient: Total time spent is greater than 50% in coordination of care (as documented) at patient's floor/unit and/or counseling patient: Coding Level of Care Code 18766 INT INP/OBS CARE 140MIN Diagnoses BPH w urinary obs/LUTS N40.1; N13.8 Complicated urinary tract infection N39.0 Urinary retention R33.9
--- NOTE | 2025-03-04 10:07 | Pharmacy Report ---
Pharmacy Glycemic Short Note 2 - Date of Service March 04, 2025 - Glycemic Short BSG Results (Last 24 hours): 03/03/25 03/03/25 03/03/25 12:17 12:20 17:16 Glucose POC Glucose 365 H* 390 H* 295 H 03/03/25 03/03/25 03/03/25 20:04 20:06 23:47 Glucose POC Glucose 325 H* 366 H* 222 H 03/04/25 03/04/25 06:35 08:00 Glucose 246 H POC Glucose 264 H OUTPATIENT ANTIDIABETIC REGIMEN: * metformin * linagliptin A1c = 8.4% ASSESSMENT: 03/04: * Jewel received 61 units of insulin yesterday (15 were basal) * Fasting BSG this AM still elevated, will continue with current basal regimen and trend. Suspect some element of basal deficiency and do not want overly aggressive glycemic control due to age. * No changes to NovoLog at this time, significantly tightened yesterday. He continues on oral doxycycline and IV ceftriaxone. 03/03: * Jewel is a 89 yo T2DM brought to the ER due to worsening weakness. Hyperglycemic on arrival. * Jewel received a total of 27 units of short-acting insulin yesterday with BSGs ranging from 228 - 307 mg/dL. No basal insulin thus far this admission. * Fasting BSG of 260 mg/dL this morning. Patient tolerated Lantus 15 units daily during July 2024 admission, which is ~0.2 unit/kg. Will trial this dose. * Tighten Novolog CF and CR to weight/stress 2. Will schedule an overnight BSG check at midnight due to severe hyperglycemia. PLAN FOR INPATIENT GLYCEMIC CONTROL: * Hold outpatient oral diabetes medications * Basal insulin * Lantus 15 units SQ daily * Bolus insulin * NovoLog per scale ACHS or Q6hrs while NPO * Goal Range: Low 120 mg/dL - High 150 mg/dL * Correction Factor: 25 mg/dL/unit * Nutritional / Prandial insulin per carb ratio of 1 unit per 8 grams CHO consumed
--- NOTE | 2025-03-04 17:18 | Hospitalist Progress Note ---
Date of Service March 04, 2025 Assessment & Plan (1) Weakness: Plan: 89-year-old male with past medical history significant for type 2 diabetes, peripheral vascular disease, chronic respiratory failure with hypoxia uses oxygen while sleeping with CPAP and as needed in the daytime, dyslipidemia, hypothyroidism, COPD, sleep apnea, history of pneumoconiosis, allergic rhinitis, bronchiectasis, bilateral carotid artery disease, bicuspid aortic valve, status post TAVR, CAD status post CABG, history of stroke left-sided weakness, chronic diastolic CHF, GERD, BPH, ataxia., Iron deficiency anemia, history of cerebellar hemorrhage, history of cerebellar stroke, former smoker who lives at home with his and daughter and ambulates slowly with walker with a lot of assistance was brought in by family because of weakness. Daughter says the patient is getting weak for last 2 weeks. But last couple of days got progressively worse. Today when he was sitting on the commode he could not get up which prompted the family to bring him to the hospital. Also sugars were high and blood pressure was high today. Since yesterday having urinary incontinence and today was micturating a lot. Normal bowel movements. No blood in stools or black stools. No chest pain or shortness of breath. No cough. No headache. Has chronic back pain. Has chronic pain in his arms. Appetite is okay. No difficulty swallowing most of the time. No runny nose or sore throat. Patient currently sleepy and daughter helped with H&P. Daughter says recently his Hemoccult was positive but patient refused colonoscopy. And there is a appointment today with hematology for possible IV iron infusion. Weakness Most from UTI and bronchitis, urinary retention Chest x-ray shows bronchitis UA is positive Ucultx positive for Klebsiella oxytoca Pt was found to retain urine, 1L of urine on straight cath, currently w/ Swift cath placed Received Rocephin in the ER Will continue Rocephin and also started on p.o. doxycycline Monitor response, pt is clinically improving -> will switch to po cefuroxime Pt used to follow up w/ [facility] - discussed he will need to follow up again. cont. flomax. PT OT when stable Diabetes Hold home p.o. medications Sliding scale Will monitor Current HbA1c level 8.4% will need close follow up Obstructive sleep apnea CPAP nightly with oxygen History of CAD s/p CABG Aspirin, Brilinta, beta-mahogany and statin History of CVA Left-sided weakness Ambulates with a walker with a lot of assistance On aspirin, Brilinta and statin BPH On Flomax Monitor for urinary retention. As above, now w/ [facility], will need urology follow up Hypothyroidism On Synthyroid Diabetic neuropathy On pregabalin Peripheral vascular disease On aspirin, Brilinta and statin Hyperlipidemia On statin and fenofibrate Hypertension Losartan, metoprolol succinate and torsemide Will monitor History of COPD Continue home inhalers Diastolic CHF On torsemide with potassium supplement Monitor for volume overload Iron deficiency anemia Supposed to follow-up with hematology today and possible IV infusion as per family Will check iron studies Can consider iron infusion prior to discharge DVT prophylaxis Lovenox Monitor for any GI bleeding Disposition Med/telemetry Full code per admitting provider's discussion with the family Admission and Anticipated Discharge Date Admission Date: March 01, 2025 Subjective Pt seen in follow up of UTI, bronchitis, then found to have urinary retention, currently w/ Swift Pt is currently sitting up in bed in NAD, today says catheter is not bothering him and denies any abdominal pain Pt denies any chest pain or shortness of breath, has minimal cough. Discussed w/ pt's daughter at the bedside - plans to take him tmrw around 10 am Review of Systems Review of Systems: All systems reviewed & are unremarkable except as noted in Subjective Physical Exam Physical Exam: General- obese, chronically ill appearing M in NAD Head- atraumatic Eyes- PERRL. Neck- supple, no JVD. Lungs- clear to auscultation no wheezing or crackles Heart- regular rhythm; no murmur Abdomen- normal bowel sounds, soft, nontender, no distension Extremities- no pretibial edema, small dry healing wound on left heel Neuro- alert, oriented, hard of hearing, answers appropriately, + left sided weakness (chronic from previous CVA) Results & Data Results & Data Vital Signs (Past 12 Hours) Vital Signs Temp Pulse Pulse Resp BP Pulse Ox O2 Del Method 03/04/25 15:49 92 H 03/04/25 15:04 36.5 C 86 18 125/66 91 Room Air 03/04/25 11:40 36.6 C 90 16 122/70 93 Nasal Cannula 03/04/25 10:00 Room Air 03/04/25 07:38 36.8 C 81 14 127/66 96 Nasal Cannula 03/04/25 07:31 78 O2 Flow Rate 03/04/25 15:49 03/04/25 15:04 03/04/25 11:40 3 03/04/25 10:00 03/04/25 07:38 3 03/04/25 07:31 Laboratory Results 03/04/25 03/04/25 03/04/25 Range/Units 17:09 11:59 11:58 WBC (4.8-10.8) K/ul RBC (4.70-6.10) M/uL Hgb (14.0-18.0) g/dl Hct (42.0-52.0) % MCV (80.0-100.0) fL MCH (25.0-34.0) pg MCHC (32.0-36.0) g/dL RDW Std Deviation (36.4-46.3) fL RDW Coeff of Maryan (11.5-14.5) % Plt Count (130-400) K/uL MPV (9.4-12.4) fL Sodium (136-145) mmol/L Potassium (3.5-5.1) mmol/L Chloride (98-107) mmol/L Carbon Dioxide (21-32) mmol/L Anion Gap (3-11) BUN (6-23) mg/dl Creatinine (0.6-1.4) mg/dl Est Cr Clr Drug Dosing ml/min eGFR BUN/Creatinine Ratio (10-20) Glucose (70-99(Fasting)) mg/dl POC Glucose 216 H 303 H* 310 H* (70-99) mg/dl Calcium (8.6-10.3) mg/dl Phosphorus (2.5-4.9) mg/dl Magnesium (1.7-2.4) mg/dl 03/04/25 03/04/25 03/03/25 Range/Units 08:00 06:35 23:47 WBC 6.79 (4.8-10.8) K/ul RBC 3.35 L (4.70-6.10) M/uL Hgb 9.6 L (14.0-18.0) g/dl Hct 29.5 L (42.0-52.0) % MCV 88.1 (80.0-100.0) fL MCH 28.7 (25.0-34.0) pg MCHC 32.5 (32.0-36.0) g/dL RDW Std Deviation 52.0 H (36.4-46.3) fL RDW Coeff of Maryan 16.1 H (11.5-14.5) % Plt Count 169 (130-400) K/uL MPV 10.2 (9.4-12.4) fL Sodium 139 (136-145) mmol/L Potassium 3.9 (3.5-5.1) mmol/L Chloride 101 (98-107) mmol/L Carbon Dioxide 29 (21-32) mmol/L Anion Gap 9 (3-11) BUN 37 H (6-23) mg/dl Creatinine 1.21 (0.6-1.4) mg/dl Est Cr Clr Drug Dosing 47.3 ml/min eGFR 57.59 BUN/Creatinine Ratio 30.6 H (10-20) Glucose 246 H (70-99(Fasting)) mg/dl POC Glucose 264 H 222 H (70-99) mg/dl Calcium 9.6 (8.6-10.3) mg/dl Phosphorus 4.1 (2.5-4.9) mg/dl Magnesium 2.0 (1.7-2.4) mg/dl 03/03/25 03/03/25 Range/Units 20:06 20:04 WBC (4.8-10.8) K/ul RBC (4.70-6.10) M/uL Hgb (14.0-18.0) g/dl Hct (42.0-52.0) % MCV (80.0-100.0) fL MCH (25.0-34.0) pg MCHC (32.0-36.0) g/dL RDW Std Deviation (36.4-46.3) fL RDW Coeff of Maryan (11.5-14.5) % Plt Count (130-400) K/uL MPV (9.4-12.4) fL Sodium (136-145) mmol/L Potassium (3.5-5.1) mmol/L Chloride (98-107) mmol/L Carbon Dioxide (21-32) mmol/L Anion Gap (3-11) BUN (6-23) mg/dl Creatinine (0.6-1.4) mg/dl Est Cr Clr Drug Dosing ml/min eGFR BUN/Creatinine Ratio (10-20) Glucose (70-99(Fasting)) mg/dl POC Glucose 366 H* 325 H* (70-99) mg/dl Calcium (8.6-10.3) mg/dl Phosphorus (2.5-4.9) mg/dl Magnesium (1.7-2.4) mg/dl Medications Administered Current Inpatient Medications Acetaminophen (Acetaminophen 325 Mg Tab) 650 mg PO Q4H PRN PRN Reason: Pain or Fever Stop: 03/31/25 05:21 Albuterol (Albuterol 0.083% Nebu Soln 3 Ml Vial) 1.25 mg INH Q4H PRN PRN Reason: sob/wheezing Stop: 03/31/25 06:26 Albuterol (Albuterol Hfa 8 Gm Inhaler) 2 puffs INH Q4H PRN PRN Reason: sob/wheezing Stop: 03/31/25 05:21 Aspirin (Aspirin 81 Mg Ectab) 81 mg PO QAM UNA Stop: 03/31/25 08:59 Last Admin: 03/04/25 09:00 Dose: 81 mg Cefuroxime Axetil (Cefuroxime Axetil 500 Mg Tab) 500 mg PO BID [facility] Stop: 03/09/25 20:59 Cyanocobalamin (Cyanocobalamin (B-12) 100 Mcg Tablet) 100 mcg PO QAM UNA Stop: 03/31/25 08:59 Last Admin: 03/04/25 09:00 Dose: 100 mcg Dextrose (Dextrose 50% 50 Ml Syringe) 25 - 50 ml IV UD PRN; Protocol PRN Reason: Hypoglycemia Protocol Stop: 03/31/25 05:21 Docusate Sodium (Docusate Sodium 100 Mg Cap) 200 mg PO HS UNA Stop: 03/31/25 20:59 Last Admin: 03/03/25 20:45 Dose: 200 mg Doxycycline Hyclate (Doxycycline Hyclate 100 Mg Cap) 100 mg PO BID UNA Stop: 03/06/25 08:59 Last Admin: 03/04/25 09:00 Dose: 100 mg Enoxaparin Sodium (Enoxaparin Inj 40 Mg/0.4 Ml Syr) 40 mg SQ Q24H UNA Stop: 03/31/25 08:59 Last Admin: 03/04/25 08:59 Dose: 40 mg Fenofibrate (Fenofibrate Nanocrystallized 48 Mg Tablet) 48 mg PO QPM [facility] Stop: 03/31/25 20:59 Last Admin: 03/03/25 20:45 Dose: 48 mg Fluticasone Furoate (Fluticasone Furoate 100mcg 14 Puffs/Inhaler) 1 puffs INH DAILY UNA Stop: 03/31/25 08:59 Last Admin: 03/04/25 09:01 Dose: 1 puffs Glucagon (Glucagon For Inj 1 Mg Vial) 1 mg SQ UD PRN; Protocol PRN Reason: Hypoglycemia Protocol Stop: 03/31/25 05:21 Glucose (Glucose 40% Gel 15 Gm Tube) 15 - 30 gm PO UD PRN; Protocol PRN Reason: Hypoglycemia Protocol Stop: 03/31/25 05:21 Glucose (Glucose 10 Tab/Tube) 4 - 8 tab PO UD PRN; Protocol PRN Reason: Hypoglycemia Protocol Stop: 03/31/25 05:21 Insulin Aspart (Insulin Aspart Per Unit Charge) 0 units SC ACHS [facility] Stop: 03/31/25 07:29 Last Admin: 03/04/25 13:00 Dose: 18 units Insulin Glargine (Lantus Per Unit Charge) 15 units SC DAILY [facility]NA Stop: 04/03/25 08:59 Last Admin: 03/04/25 09:14 Dose: 15 units Insulin Glargine (Lantus Per Unit Charge) 0 units SC HS [facility]; Protocol Stop: 04/03/25 20:59 Lactobacillus Acidophilus (Advanced Probiotic 625 Mg Capsule) 1,250 mg PO DAILY UNA Stop: 04/03/25 17:59 Levothyroxine Sodium (Levothyroxine Sodium 25 Mcg Tablet) 25 mcg PO DAILYBB UNA Stop: 03/31/25 06:29 Last Admin: 03/04/25 06:13 Dose: 25 mcg Losartan Potassium (Losartan Potassium 50 Mg Tab) 50 mg PO QAM UNA Stop: 03/31/25 08:59 Last Admin: 03/02/25 08:57 Dose: 50 mg Magnesium Oxide (Magnesium Oxide 400 Mg Tab) 400 mg PO AMHS UNA Stop: 03/31/25 08:59 Last Admin: 03/04/25 09:00 Dose: 400 mg Melatonin (Melatonin 3 Mg Tab) 9 mg PO HS [facility] Stop: 03/31/25 20:59 Last Admin: 03/03/25 20:44 Dose: 9 mg Metoprolol Succinate (Metoprolol Succ 25mg Ext Rel Tab) 12.5 mg PO DAILY [facility] Stop: 03/31/25 08:59 Last Admin: 03/04/25 09:00 Dose: 12.5 mg Miscellaneous (Carbohydrates For Hypoglycemia ) 15 - 30 gm PO UD PRN PRN Reason: Hypoglycemia Protocol Stop: 03/31/25 05:21 Miscellaneous Information (Pharmacy Glycemic Mgmt Consult) 1 each N/A UD PRN; Protocol PRN Reason: Consult Stop: 04/02/25 12:32 Multivitamins (Multivitamin Tab) 1 tab PO QAM [facility] Stop: 03/31/25 08:59 Last Admin: 03/04/25 09:00 Dose: 1 tab Nitroglycerin (Nitroglycerin Sl 0.4 Mg/Tab Tab) 0.4 mg SL Q5M PRN PRN Reason: Chest Pain Stop: 03/31/25 05:21 Pantoprazole Sodium (Pantoprazole 40 Mg Tab) [facility] Stop: 03/31/25 08:59 Last Admin: 03/04/25 09:01 Dose: 40 mg Polyethylene Glycol (Polyethylene (Miralax) 17 Gm Pack) 17 gm PO DAILY PRN PRN Reason: Constipation Stop: 03/31/25 05:21 Potassium Chloride (Potassium Chloride 10 Meq Tabcr) 10 meq PO QAM [facility] Stop: 03/31/25 08:59 Last Admin: 03/04/25 09:15 Dose: 10 meq Pregabalin (Pregabalin 100 Mg Cap) 100 mg PO [facility] Stop: 03/31/25 08:59 Last Admin: 03/04/25 09:15 Dose: 100 mg Rosuvastatin Calcium (Rosuvastatin Calcium 20 Mg Tab) 40 mg PO HS [facility] Stop: 03/31/25 20:59 Last Admin: 03/03/25 20:44 Dose: 40 mg Tamsulosin HCl (Tamsulosin Hcl 0.4 Mg Cap) 0.4 mg PO HS [facility] Stop: 03/31/25 20:59 Last Admin: 03/03/25 20:45 Dose: 0.4 mg Ticagrelor (Ticagrelor 90 Mg Tab) 90 mg PO [facility] Stop: 03/31/25 08:59 Last Admin: 03/04/25 09:00 Dose: 90 mg Torsemide (Torsemide 20 Mg Tab) 20 mg PO QAM [facility] Stop: 03/31/25 08:59 Last Admin: 03/03/25 09:19 Dose: 20 mg Umeclidinium/Vilanterol (Umeclidinium/Vilanterol 62.5/25mcg 7 Puffs/Inhaler) 1 puffs INH DAILY [facility] Stop: 03/31/25 08:59 Last Admin: 03/04/25 09:01 Dose: 1 puffs
[2025-03-04] MEDS: ADVANCED PROBIOTIC 625 MG CAPSULE PO SCH (18:33)
[2025-03-05 06:09] LABS: Hematocrit (blood only) 30.0 % (42.0-52.0); Hemoglobin 9.6 g/dl (14.0-18.0); Mean Corpuscular Hemoglobin 28.1 pg (25.0-34.0); Mean Corpuscular Volume 87.7 fL (80.0-100.0); Platelet Count 167 K/uL (130-400); RDW Standard Deviation 50.8 fL (36.4-46.3); Red Blood Count 3.42 M/uL (4.70-6.10); White Blood Count 6.45 K/ul (4.8-10.8)
[2025-03-05 06:25] LABS: Anion Gap 7.0 (3-11); Blood Urea Nitrogen 35.0 mg/dl (6-23); Calcium 9.7 mg/dl (8.6-10.3); Carbon Dioxide 30.0 mmol/L (21-32); Chloride 103.0 mmol/L (98-107); Creatinine Clr Calc Pharmacy 50.7 ml/min; Glucose 233.0 mg/dl (70-99(Fasting)); Magnesium 2.2 mg/dl (1.7-2.4); Potassium 4.2 mmol/L (3.5-5.1); Sodium 140.0 mmol/L (136-145)
[2025-03-05 08:15] VITALS: PULSE 79; RESP 20; TEMP 97.9; O2SAT 91
[2025-03-05] MEDS: LANTUS PER UNIT CHARGE SC SCH (08:49)
[2025-03-05 09:11] VITALS: BP 125/66
--- NOTE | 2025-03-05 09:41 | Discharge Summary ---
Date of Service March 05, 2025 Admission HPI Per Admitting Provider 89-year-old male with past medical history significant for type 2 diabetes, peripheral vascular disease, chronic respiratory failure with hypoxia uses oxygen while sleeping with CPAP and as needed in the daytime, dyslipidemia, hypothyroidism, COPD, sleep apnea, history of pneumoconiosis, allergic rhinitis, bronchiectasis, bilateral carotid artery disease, bicuspid aortic valve, status post TAVR, CAD status post CABG, history of stroke left-sided weakness, chronic diastolic CHF, GERD, BPH, ataxia., Iron deficiency anemia, history of cerebellar hemorrhage, history of cerebellar stroke, former smoker who lives at home with his and daughter and ambulates slowly with walker with a lot of assistance was brought in by family because of weakness. Daughter says the patient is getting weak for last 2 weeks. But last couple of days got progressively worse. Today when he was sitting on the commode he could not get up which prompted the family to bring him to the hospital. Also sugars were high and blood pressure was high today. Since yesterday having urinary incontinence and today was micturating a lot. Normal bowel movements. No blood in stools or black stools. No chest pain or shortness of breath. No cough. No headache. Has chronic back pain. Has chronic pain in his arms. Appetite is okay. No difficulty swallowing most of the time. No runny nose or sore throat. Patient currently sleepy and daughter helped with H&P. Daughter says recently his Hemoccult was positive but patient refused colonoscopy. And there is a appointment today with hematology for possible IV iron infusion. Past medical history. As mentioned above. Past surgical history. Colonoscopy. CABG. Cystoscopy. EGD with endoscopic ultrasound. ERCP. Laminectomy with spinal fusion. Laparoscopic cholecystecto my. S/p angioplasty and stenting of left circumflex coronary artery. Palate/uvula surgery. Prostate laser. Bilateral cataracts. Repair of right ruptured rotator cuff. Status post TAVR. Bilateral carotid endarterectomy. Social history. . Quit smoking 1960. Smoked 4 packs a day for 30 years. Alcohol occasionally. No drug use. Family history. Brother had intestinal cancer. Brother had diabetes. Brother had diabetes. Mother had diabetes. Arthritis. Sister had heart disorder. Brother had heart attack. Admission Exam Per Admitting Provider General-Not in distress. Head- atraumatic Eyes- PERRL. ENT- oropharynx clear Neck- supple, no JVD. Lungs- clear to auscultation no wheezing or crackles Heart- regular rhythm; no murmur, no gallop. Abdomen- normal bowel sounds, soft, nontender, no distension Extremities- no pretibial edema, small dry healing wound on left heel Neuro- alert, oriented PERRL, no facial palsy; no dysarthria; left sided weakness Principal Diagnosis Urinary retention, UTI bronchitis Discharge Exam General- obese, chronically ill appearing M in NAD Head- atraumatic Eyes- PERRL. Neck- supple, no JVD. Lungs- clear to auscultation no wheezing or crackles Heart- regular rhythm; no murmur Abdomen- normal bowel sounds, soft, nontender, no distension : + Swift cath w/ yellow urine draining Extremities- no pretibial edema, small dry healing wound on left heel Neuro- alert, oriented, hard of hearing, answers appropriately, + left sided weakness (chronic from previous CVA) Discharge Data Allergies Allergy/AdvReac Type Severity Reaction Status Date / Time empagliflozin Allergy Severe rash, skin Verified 02/21/25 13:02 [From Jardiance] irritation at the groin codeine AdvReac Severe Anxiety Verified 02/21/25 13:02 symptoms hydrocodone AdvReac Severe Anxiety, Verified 02/21/25 13:02 insomnia Iodinated Contrast Media AdvReac Severe drowsy, Verified 02/21/25 13:02 "wipes patient out the following day" tramadol AdvReac Severe unable to Verified 02/21/25 13:02 move/somnolence camphor [From Biofreeze] AdvReac Intermediate Itching Verified 02/21/25 13:02 guaifenesin [From Mucinex] AdvReac Intermediate inability Verified 02/21/25 13:02 to walk, confusion menthol [From Biofreeze] AdvReac Intermediate Itching Verified 02/21/25 13:02 opiate AdvReac Severe unable to Uncoded 02/21/25 13:02 tolerate any pain medication Consultations 03/01/25 00:02 ED Decision to Admit Stat 03/03/25 12:36 Consult Urology Routine Ordered Studies 02/28/25 21:02 CT head/brain wo con Stat FINDINGS: Brain: Remote ischemic injuries of the right frontal, parietal and occipital lobes with encephalomalacia and gliosis. Remote ischemic injuries of the bilateral cerebellar lobes. No hemorrhage. Advanced nonspecific white matter changes. No edema. Ventricles: Moderate ventriculomegaly. Bones/joints: Unremarkable. No acute fracture. Soft tissues: Unremarkable. Sinuses: Unremarkable as visualized. No acute sinusitis. Mastoid air cells: Unremarkable as visualized. No mastoid effusion. IMPRESSION: No evidence of acute intracranial pathology. Hospital Course (1) Weakness: 89-year-old male with past medical history significant for type 2 diabetes, peripheral vascular disease, chronic respiratory failure with hypoxia uses oxygen while sleeping with CPAP and as needed in the daytime, dyslipidemia, hypothyroidism, COPD, sleep apnea, history of pneumoconiosis, allergic rhinitis, bronchiectasis, bilateral carotid artery disease, bicuspid aortic valve, status post TAVR, CAD status post CABG, history of stroke left-sided weakness, chronic diastolic CHF, GERD, BPH, ataxia., Iron deficiency anemia, history of cerebellar hemorrhage, history of cerebellar stroke, former smoker who lives at home with his and daughter and ambulates slowly with walker with a lot of assistance was brought in by family because of weakness. Daughter says the patient is getting weak for last 2 weeks. But last couple of days got progressively worse. Today when he was sitting on the commode he could not get up which prompted the family to bring him to the hospital. Also sugars were high and blood pressure was high today. Since yesterday having urinary incontinence and today was micturating a lot. Normal bowel movements. No blood in stools or black stools. No chest pain or shortness of breath. No cough. No headache. Has chronic back pain. Has chronic pain in his arms. Appetite is okay. No difficulty swallowing most of the time. No runny nose or sore throat. Patient currently sleepy and daughter helped with H&P. Daughter says recently his Hemoccult was positive but patient refused colonoscopy. And there is a appointment today with hematology for possible IV iron infusion. Weakness Most from UTI and bronchitis, urinary retention Chest x-ray shows bronchitis UA is positive Ucultx positive for Klebsiella oxytoca Pt was found to retain urine, 1L of urine on straight cath, currently w/ Swift c ath placed Received Rocephin in the ER continued Rocephin and also started on p.o. doxycycline pt clinically improving -> switched to po cefuroxime Pt used to follow up w/ [facility] - discussed he will need to follow up again. cont. flomax. PT OT when stable - - pt daughter to take pt home (discussed w/ pt's daughter in detail) Diabetes Held home p.o. medications Sliding scale Will monitor Current HbA1c level 8.4% will need close outpt follow up Obstructive sleep apnea CPAP nightly with oxygen History of CAD s/p CABG Aspirin, Brilinta, beta-mahogany and statin History of CVA Left-sided weakness Ambulates with a walker with a lot of assistance On aspirin, Brilinta and statin BPH On Flomax Monitor for urinary retention. As above, now w/ Swift, will need urology follow up Hypothyroidism On Synthyroid Diabetic neuropathy On pregabalin Peripheral vascular disease On aspirin, Brilinta and statin Hyperlipidemia On statin and fenofibrate Hypertension Losartan, metoprolol succinate and torsemide Will monitor History of COPD Continue home inhalers Diastolic CHF On torsemide with potassium supplement Monitor for volume overload Iron deficiency anemia Supposed to follow-up with hematology and possible IV infusion as per family Total Time Total Time Spent Total Time Spent (In Minutes): 40 Discharge Plan Discharge Items Patient Disposition: Home - Home Health Services Reason For Visit: WEAKNESS, UTI, BRONCHITIS Discharge Diagnosis: Urinary retention, UTI bronchitis Condition on Discharge: Fair Activity: Per Instructions section Non-emergency contact: Primary Care Provider and Urologist Call non-emergency contact if: you have any medication questions and your symptoms worsen Follow-up/Referrals: Jae Anthony MD [Primary Care Provider] - Diet: Carb Consistent or DM2 and Heart Healthy Diet Texture: Dental soft (bite-sized) Addtl Attending Provider Instructions: Follow up with primary care physician and urologist. Finish antibiotic treatment as prescribed. You should be seen by your primary care doctor within 1 week. Discuss your diabetic regimen with your primary care doctor. Follow up with your urologist regarding urinary retention/ Swift catheter needs. Pending Studies at Discharge: Yes Studies:: final blood cultx results Stand-Alone Forms: My [employer], Smoking Cessation Medications and DC Order Prescriptions: New doxycycline hyclate 100 mg Capsule 100 mg PO BID 1 Days Qty: 2 0RF cefuroxime axetil 500 mg Tablet 500 mg PO BID Qty: 3 0RF Advanced Probiotic 625 mg (10 billion cell) Capsule 1 cap PO DAILY Qty: 5 0RF Continued cyanocobalamin (vitamin B-12) [Vitamin B-12] 1,000 mcg tablet 100 mcg PO QAM multivitamin Tablet 1 tab PO QAM Qty: 30 0RF potassium chloride 10 mEq capsule, extended release 10 meq PO QAM Qty: 30 0RF torsemide 20 mg tablet 20 mg PO QAM Qty: 30 0RF levothyroxine 25 mcg tablet 25 mcg PO QAM Qty: 30 0RF pantoprazole 40 mg tablet,delayed release (DR/EC) 40 mg PO QAM Qty: 30 0RF Trelegy Ellipta 100-62.5-25 mcg blister with device 1 inh inhalation QAM Qty: 60 0RF metformin 500 mg tablet 1,000 mg PO QAM losartan 50 mg Tablet 50 mg PO QAM metformin 500 mg Tablet 500 mg PO QPM albuterol sulfate 1.25 mg/3 mL Solution For Nebulization 1.25 mg INHALATION Q4H PRN (Reason: sob/wheezing) ondansetron HCl 4 mg Tablet 4 mg PO Q6H PRN (Reason: nausea/vomitting) docusate sodium 100 mg Capsule 200 mg PO HS polyethylene glycol 3350 [Miralax] 17 gram/dose Powder 8.5 g PO QAM PRN (Reason: ud - constipation) albuterol sulfate 90 mcg/actuation Hfa Aerosol Inhaler 2 inh INHALATION Q4H PRN (Reason: sob/wheezing) rosuvastatin 40 mg Tablet 40 mg PO HS pregabalin [Lyrica] 100 mg Capsule 100 mg PO [facility] fenofibrate nanocrystallized 48 mg Tablet 48 mg PO QPM Tradjenta 5 mg Tablet 5 mg PO QAM melatonin 10 mg Tablet 10 mg PO HS acetaminophen [Tylenol Extra Strength] 500 mg tablet 500 - 1,000 mg PO UD Rx Instructions: 1000MG IN MORNING,500MG AT 5PM & 9;30PM can take 1 extra dose between scheduled doses or 1 extra with 5p or 9:30 dose tamsulosin 0.4 mg capsule 0.4 mg PO HS nitroglycerin [Nitrostat] 0.4 mg tablet, sublingual 0.4 mg sublingual UD PRN (Reason: Chest Pain) aspirin 81 mg Tablet,Delayed Release (Dr/Ec) 81 mg PO QAM ticagrelor [Brilinta] 90 mg tablet 90 mg PO AMHS magnesium oxide 400 mg (241.3 mg magnesium) tablet 400 mg PO [facility] metoprolol succinate 25 mg Tablet Extended Release 24 Hr 12.5 mg PO DAILY Discharge Orders: Discharge Order (Routine); Ordered 03/05/25 Ordered By: Marv Tate Admission Data Admit Date/Time: 03/01/25 03:31 Attending Provider: Marv Tate Admit Provider: Trevin Gonzalez Primary Care Provider: Jae Anthony Other Providers: Trevin Gonzalez; Cy Stoll Other Interventions: Discharge Summary Assessment (RN) Last Done: 03/05/25 09:10
== END 2025-03-05 10:37 | disposition home health service (06) | DRG 690 ==
LOC: ED 20:25 → EDINP 03-01 03:31 → 2N 03-01 05:22